=== PATIENT | male | born 1950 | race Caucasian/White ===

== ENCOUNTER → 2017-09-05 07:40 | Outpatient (CLI) | payer MEDICARE, BC, SELFPAY ==
--- NOTE | 2017-09-05 07:43 | CT_ITS ---
CT lung screening EXAM: CT LUNG LOW DOSE WO CONTRAST COMPARISON: None HISTORY: 66-year-old male with 80 pack-year smoking history asymptomatic ITS.REASON: PERSONAL HX TOBACCO USE ORDERING PHYSICIAN: Dinh Ritchie MD PATIENT AGE: 66 years TECHNIQUE: The exam was performed on a GE Light Speed [address] scanner using 2.90 mGy CTDI. A low dose helical CT CHEST was performed on a multi-detector scanner. All CT scans at the facility use one or more dose reduction, viz: automated exposure control; ma/kV adjustment per patient size (including targeted exams where dose is matched to indication; i.e. head); or iterative reconstruction technique. The LDCT was performed in a facility that meets the criteria for the screening program. Data regarding this exam was submitted to ACR which is an approved registry. The order for this exam indicates that it came as a result of a lung cancer screening counseling shard decision-making visit that included all the elements required of such a visit including smoking cessation. The radiologist interpreting this exam meets the CMS criteria for the LDCT lung cancer screening program. The exam is reported using the Lung-RADS classification scale and reported to the ACR registry. NOTE: This study was performed for the specific purposes of lung cancer screening and is not an alternative to diagnostic chest CT. RADIATION DOSE: CTDI vol(CT dose Index-volume) = 2.90mG DLP (Dose Length Product) = 113.59 mGcm FINDINGS: There are centrilobular emphysematous changes with hyperinflation and bronchial thickening consistent with smoking-related lung disease. 8.5 x 5.6 mm noncalcified slightly irregular opacity right upper lobe posterior medially with extension to the pleural surface indeterminate. Possibly related to an area of subpleural scarring. There is a linear area of increased density in the right upper lobe laterally at 2.6 cm in length and 0.5 cm in thickness consistent with an area of scarring. Calcified granuloma right lower lobe posteriorly. Noncalcified 3 mm nodule superior segment left lower lobe. Coronary artery calcifications are present. 3.9 cm isodensity left kidney incompletely imaged which may represent a cyst and may be confirmed with ultrasound. IMPRESSION: 1. Lung RADS Category: 4A suspicious. Regarding right upper lobe nodule 2. Other findings: Coronary artery calcifications suggesting coronary artery disease. Centrilobular emphysema. Probable left renal cyst RECOMMENDATIONS: [address] of the chest without and with contrast
== END ==
PROVIDERS: Family Provider Family Medicine; Visit Provider Family Medicine
DX: Z87.891 Personal history of nicotine dependence (principal); Z12.2 Encounter for screening for malignant neoplasm of respiratory organs

== ENCOUNTER → 2017-12-10 12:18 | Outpatient (CLI) | payer MEDICARE, BC, SELFPAY ==
[2017-12-10 12:48] LABS: Blood Urea Nitrogen 21 mg/dL (7-18); Creatinine,Serum 0.71 mg/dL (0.70-1.30); Estimated Glomerular Filt Rate 111 ml/min (>60); GFR (African American) 135 ML/MIN (>60)
--- NOTE | 2017-12-10 12:56 | CT_ITS ---
CT chest wo/w con HISTORY: Follow-up lung nodule, follow-up abnormal chest CT, solitary pulmonary nodule ITS.REASON: LUNG NODULE ORDERING PHYSICIAN: Dinh Ritchie MD PATIENT AGE: 66 years COMPARISON: None Technique: Axial images obtained without contrast. Sagittal and coronal reformats are reviewed as well. All CT scans at the facility use one or more dose reduction, viz: automated exposure control, ma/kV adjustment per patient size (including targeted exams where dose is matched to indication, i.e. head), or iterative reconstruction technique. FINDINGS: No mediastinal or hilar adenopathy or mass. Normal heart size. No evidence of pericardial effusion. No central obstructing lesions there is mild diffuse bronchial thickening. Somewhat irregular right upper lobe pulmonary nodule once again noted medially measuring approximately 7 x 5 mm. This is not significantly changed. No appreciable enhancement. Scarring is once again noted in the right upper lobe laterally unchanged. There is a calcified granuloma in the right lower lobe. No new nodules are evident. There are centrilobular emphysematous changes with obstructive chronic bronchitis. 3 mm noncalcified nodule present in the superior segment of the left lower lobe unchanged. No effusions or infiltrates. No acute bony anomalies. Upper abdominal images show at least 2 isodensity is in the left hepatic lobe at 11 7-mm and one in the hepatic dome at 4 mm. These are nonspecific and could represent cyst. Left renal cyst once again noted. IMPRESSION: Stable right upper lobe nodule compared to 09/05/2017. Six-month follow-up recommended. This can be performed without contrast. Centrilobular emphysema with scarring and obstructive chronic bronchitis
== END ==
PROVIDERS: Family Provider Family Medicine; PCP Family Medicine; Visit Provider Family Medicine
DX: R91.1 Solitary pulmonary nodule (principal)
CPT/HCPCS: 36415; 71270; 82565; 84520; Q9967

== ENCOUNTER → 2018-10-22 08:23 | Outpatient (CLI) | payer MEDICARE, BC, SELFPAY ==
[2018-10-22 08:51] LABS: Blood Urea Nitrogen 27 mg/dL (7-18); Creatinine,Serum 0.95 mg/dL (0.70-1.30); Estimated Glomerular Filt Rate 79 ml/min (>60); GFR (African American) 96 ML/MIN (>60)
--- NOTE | 2018-10-22 09:00 | CT_ITS ---
CT chest wo/w con HISTORY: Follow-up pulmonary nodules ITS.REASON: SEVERE COPD, HX TOBACCO USE ORDERING PHYSICIAN: Yuliet Patel APRN PATIENT AGE: 67 years COMPARISON: 12/10/2017 Technique: Contrast Used:75ml Optiray 350 Axial images were obtained. Sagittal, and coronal reformatted images are also generated and reviewed. All CT scans at the facility use one or more dose reduction, viz: automated exposure control, ma/kV adjustment per patient size (including targeted exams where dose is matched to indication, i.e. head), or iterative reconstruction technique. FINDINGS: No mediastinal or hilar mass or adenopathy. No evidence of aortic aneurysm or central pulmonary embolus. Coronary artery calcifications are present. No evidence of pericardial effusion. There is COPD with centrilobular emphysema. There are scattered areas of scarring similar to the previous exam. Bronchial thickening is noted as before. There is a small parenchymal opacity in the right upper lobe posteriorly at 6 mm unchanged and may represent an area of scarring. No new nodules are evident. No effusions or infiltrates. No acute bony findings. There is mild gynecomastia. Multiple hypodensities are present in the liver suggesting cysts. There is atheromatous change of the abdominal aorta with mild dilatation of the infrarenal abdominal aorta measuring up to 3 cm incompletely imaged. IMPRESSION: 1. Overall stable CT appearance of the chest. 2. COPD with centrilobular emphysema and scattered areas of parenchymal scarring. Stable parenchymal opacities. No new nodules evident. 3. Coronary artery disease. 4. Infrarenal abdominal aortic aneurysm which is incompletely imaged measuring up to [address] for further evaluation
== END ==
PROVIDERS: Visit Provider Nurse Practitioner Family
DX: J44.9 Chronic obstructive pulmonary disease, unspecified (principal); Z87.891 Personal history of nicotine dependence
CPT/HCPCS: 36415; 71270; 82565; 84520

== ENCOUNTER → 2018-11-11 08:23 | Outpatient (CLI) | payer MEDICARE, BC, SELFPAY ==
[2018-11-11 08:41] LABS: Blood Urea Nitrogen 21 mg/dL (7-18); Creatinine,Serum 0.85 mg/dL (0.70-1.30); Estimated Glomerular Filt Rate 90 ml/min (>60); GFR (African American) 109 ML/MIN (>60)
--- NOTE | 2018-11-11 08:56 | CT_ITS ---
CT abdomen pelvis wo/w con CLINICAL INDICATION: Abdominal aortic aneurysm evaluation ITS.REASON: AAA ORDERING PHYSICIAN: Dinh Ritchie MD PATIENT AGE: 67 years COMPARISON: 10/22/2018 TECHNIQUE: Contrast Used:75ml Optiray 350 Oral Contrast: None Axial images obtained without and with contrast with sagittal and coronal reformats. All CT scans at the facility use one or more dose reduction, viz: automated exposure control, ma/kV adjustment per patient size (including targeted exams where dose is matched to indication, i.e. head), or iterative reconstruction technique. FINDINGS: Lower thorax: No acute finding There are several isodense hepatic lesions which may represent multiple small hepatic cysts the largest in the junction of the right and left hepatic lobe superiorly at approximately 9 mm. No calcified gallstones. Spleen is unremarkable. Adrenal glands and pancreas has an unremarkable appearance Nonobstructing 3 mm stone is present in the upper pole the right kidney. There is a large left renal cyst along the lower pole of left kidney measuring 10 x 6.4 cm. There is some minimal septation noted within the cyst with some minimal calcification. This is considered a Bosniak class II F cyst. Suggest 3 month follow-up. No right. No adenopathy. There is mild enlargement of the prostate at 4.8 cm. Scattered diverticula are present within the descending and sigmoid colon. No evidence of diverticulitis or appendicitis. No intestinal obstruction or free air. No acute bony anomalies. There is an infrarenal fusiform abdominal aortic aneurysm. This begins 4 cm below the level the renal arteries measuring up to 4.5 cm AP and transverse with a moderate amount of intramural thrombus. The aneurysm ends at the aortic bifurcation with calcific plaque within the iliac arteries. IMPRESSION: 1. 4.5 cm infrarenal abdominal aortic aneurysm as described above with a moderate amount of the intramural thrombus 2. Complex left renal cyst at 10 x 6.4 cm with some internal septa representing a Bosniak class II F cyst. Recommend 3 month follow-up 3. Right nephrolithiasis. 4. Probable hepatic cysts
== END ==
PROVIDERS: PCP Family Medicine; Visit Provider Family Medicine
DX: I71.4 Abdominal aortic aneurysm, without rupture (principal)
CPT/HCPCS: 36415; 74178; 82565; 84520; Q9967

== ENCOUNTER → 2019-03-09 08:05 | Outpatient (CLI) | payer MEDICARE, BC, SELFPAY ==
--- NOTE | 2019-03-09 08:22 | CT_ITS ---
PROCEDURE: CT ABDOMEN PELVIS WO/W CON CLINICAL INDICATION: renal mass Left renal mass COMPARISON: CHESTWW CT chest wo/w con from 12/10/[address] abdomen wo/w con from 11/11/2018 TECHNIQUE: IV Contrast: 75ML OPTIRAY 350 Oral Contrast NONE Axial images obtained with sagittal and coronal reformats. All CT scans at the facility use one or more dose reduction, viz: automated exposure control, ma/kV adjustment per patient size (including targeted exams where dose is matched to indication, i.e. head), or iterative reconstruction technique. FINDINGS: LOWER THORAX: A 4 mm noncalcified nodules present in the right lung base posteriorly. ABDOMEN & PELVIS: The there are several small hypodense lesions of the liver consistent with cysts. There is an 11 by 6.8 by 6.2 cm cyst projecting off the lower pole of the left kidney. This does contain some thin peripheral calcification. There may be some minimal enhancement along the lower aspect of the cyst.. No hydronephrosis. No solid renal masses. There is an infrarenal abdominal aortic aneurysm with moderate amount of intramural thrombus. The aneurysm measures up to 4.7 cm transverse and 4.5 cm AP. The aneurysm begins approximately 3 cm below the level of the renal arteries extending to the aortic bifurcation. The proximal common iliacs are unremarkable. There is a moderate amount intramural thrombus. No evidence of retroperitoneal hemorrhage. The Prostate gland is mildly enlarged at 4.8 cm. There is degenerative disc disease at L5-S1. IMPRESSION: 1. 11 x 6.8 x 6.2 cm left renal cyst with some thin septa with minimal calcification and questionable enhancement inferiorly consistent with a Bosniak class 2F cyst. Suggest 6 month follow-up 2. 4.7 x 4.5 cm infrarenal abdominal aortic aneurysm containing a moderate amount of intramural thrombus extending to the aortic bifurcation. No evidence of retroperitoneal hemorrhage Dictated by: Justin Jameson MD 03/10/2019 13:06 Electronically signed by Justin Jameson MD in [place] 03/10/2019 13:06
[2019-03-09 08:28] LABS: Blood Urea Nitrogen 23 mg/dL (7-18); Creatinine,Serum 0.94 mg/dL (0.70-1.30); Estimated Glomerular Filt Rate 80 ml/min (>60); GFR (African American) 97 ML/MIN (>60)
== END ==
PROVIDERS: PCP Family Medicine; Visit Provider Urology
DX: N28.89 Other specified disorders of kidney and ureter (principal); N28.1 Cyst of kidney, acquired
CPT/HCPCS: 36415; 74178; 82565; 84520; Q9967

== ENCOUNTER → 2019-09-08 08:02 | Outpatient (CLI) | payer MEDICARE, BC, SELFPAY ==
[2019-09-08 08:28] LABS: Blood Urea Nitrogen 26 mg/dl (9-20); Estimated Glomerular Filt Rate 112 ml/min (>60); GFR (African American) 136 ML/MIN (>60)
--- NOTE | 2019-09-08 08:39 | CT_ITS ---
PROCEDURE: CT ABDOMEN PELVIS WO/W CON CLINICAL INDICATION: left renal mass Follow-up left renal mass COMPARISON: ABDWW CT abdomen wo/w con from 11/11/2018 CT ABDOMEN PELVIS WO/W CON from 03/09/2019 TECHNIQUE: IV Contrast: 75ML OPTIRAY 350 Oral Contrast none Axial images obtained with sagittal and coronal reformats. All CT scans at the facility use one or more dose reduction, viz: automated exposure control, ma/kV adjustment per patient size (including targeted exams where dose is matched to indication, i.e. head), or iterative reconstruction technique. FINDINGS: LOWER THORAX: COPD. ABDOMEN & PELVIS: There are multiple hypodense hepatic lesions which are not significantly changed and may be due to small cyst or hemangiomas. The spleen, adrenal glands, and pancreas have an unremarkable appearance. There is a nonobstructing 3 mm stone in the upper pole of the right kidney and 2 mm stone in the upper pole of the left kidney. There is a complex left renal cyst projecting off the lower pole of the left kidney measuring 11 cm cephalad caudad, 6.6 cm AP, and 6.1 cm transverse for. The cyst is not significantly changed in size. There are some thin partially calcified septa along the periphery of this lesion. They do not appear to significantly enhance. The. This is not significantly changed from 11/11/2018 and 03/09/2019. The There is a mild amount of retained colonic feces. No intestinal obstruction or free air. No evidence of appendicitis. There is colonic diverticulosis but no evidence of diverticulitis. Prostate is enlarged at 5 cm There is an infrarenal abdominal aortic aneurysm which measures 4.9 the for by 5 cm with a moderate amount of intramural thrombus. The aneurysm ends at the aortic bifurcation. There is no evidence of acute retroperitoneal hemorrhage. Degenerative changes are present in the lumbar spine. IMPRESSION: 1. No change in the complex left renal cyst stable for 10 months consistent with Bosniak class 2. Consider yearly follow-up. 2. Bilateral nephrolithiasis. 3. Infrarenal abdominal aortic aneurysm which is slightly increased in size with maximum AP diameter of 5 cm previously 4.5 cm on 03/09/2019 4. Colonic diverticulosis. No evidence of diverticulitis Dictated by: Justin Jameson MD 09/09/2019 08:20 Electronically signed by Justin Jameson MD in [place] 09/09/2019 08:20
--- NOTE | 2019-09-08 08:41 | CT_ITS ---
PROCEDURE: CT LUNG SCREENING CLINICAL INDICATION: H/O NICOTINE DEPENDENCE Fifty pack-year smoking history, asymptomatic for lung cancer COMPARISON: CHESTWW CT chest wo/w con from 10/22/2018 TECHNIQUE: The exam was performed on a GE Light Speed [address] scanner using 2.90 mGy CTDI. A low dose helical CT CHEST was performed on a multi-detector scanner. All CT scans at the facility use one or more dose reduction, viz: automated exposure control, ma/kV adjustment per patient size (including targeted exams where dose is matched to indication, i.e. head), or iterative reconstruction technique. The LDCT was performed in a facility that meets the criteria for the screening program. Data regarding this exam was submitted to ACR which is an approved registry. The order for this exam indicates that it came as a result of a lung cancer screening counseling shard decision-making visit that included all the elements required of such a visit including smoking cessation. The radiologist interpreting this exam meets the CMS criteria for the LDCT lung cancer screening program. The exam is reported using the Lung-RADS classification scale and reported to the ACR registry. NOTE: This study was performed for the specific purposes of lung cancer screening and is not an alternative to diagnostic chest CT. RADIATION DOSE: CTDI vol(CT dose Index-volume) = 2.90mG DLP (Dose Length Product) = 112.29 mGcm Lung Rads Category: FINDINGS: Centrilobular emphysema with changes of COPD and scattered areas of scarring. No new nodular densities. Calcified granuloma is present in the right lower lobe no suspicious nodules apparent. OTHER FINDINGS: Extensive coronary artery calcification. There is an implantable cardiac device between the right left atrium. Please see abdomen CT performed on the same day for abdominal findings IMPRESSION: Lung rads category 2 benign findings Recommend screening LD CT in 12 months Dictated by: Justin Jameson MD 09/26/2019 09:39 Electronically signed by Justin Jameson MD in [place] 09/26/2019 09:39
== END ==
PROVIDERS: PCP Family Medicine; Visit Provider Urology
DX: N28.89 Other specified disorders of kidney and ureter (principal); Z87.891 Personal history of nicotine dependence; Z12.2 Encounter for screening for malignant neoplasm of respiratory organs
CPT/HCPCS: 36415; 74178; 82565; 84520; Q9967

== ENCOUNTER → 2020-03-06 11:16 | Outpatient (CLI) | payer MEDICARE, BC, SELFPAY ==
[2020-03-06 12:20] LABS: Blood Urea Nitrogen 22 mg/dl (9-20); Estimated Glomerular Filt Rate 134 ml/min (>60); GFR (African American) 162 ML/MIN (>60)
== END ==
PROVIDERS: Visit Provider Urology
DX: Z01.818 Encounter for other preprocedural examination (principal); N28.1 Cyst of kidney, acquired
CPT/HCPCS: 36415; 82565; 84520

== ENCOUNTER → 2020-03-07 08:52 | Outpatient (CLI) | payer MEDICARE, BC, SELFPAY ==
--- NOTE | 2020-03-07 08:57 | CT_ITS ---
PROCEDURE: CT ABDOMEN PELVIS WO/W CON CLINICAL INDICATION: COMPLEX RENAL CYST Follow-up left renal cyst COMPARISON: CT CT ABDOMEN PELVIS WO/W CON from 09/08/2019 TECHNIQUE: IV Contrast: 75ML Isovue 370 Oral Contrast None Axial images obtained with sagittal and coronal reformats. All CT scans at the facility use one or more dose reduction, viz: automated exposure control, ma/kV adjustment per patient size (including targeted exams where dose is matched to indication, i.e. head), or iterative reconstruction technique. FINDINGS: LOWER THORAX: No acute finding ABDOMEN & PELVIS: There are scattered hypodense lesions of the liver which may represent hepatic cysts less than 1 cm and not significantly changed. There is a complex left renal cyst measuring 11 cm cephalad caudad 6.4 cm transverse and 6.5 cm AP. There are some thin calcific septa within the anterior and inferior aspect of the cyst which are not significantly changed. These do not demonstrate contrast enhancement. There are nonobstructing punctate calculi in the upper pole of the right kidney. No hydronephrosis. The spleen, adrenal glands, and pancreas have an unremarkable appearance. Aortoiliac stent graft has been placed in the interval. There is dilatation of the [facility] aorta at 4.6 by 4.3 cm. No evidence of endo graft leak. No intestinal obstruction or free air. Increased soft tissue density is present in the left inguinal area heterogeneous in nature consistent with hematoma/seroma from the previous stent graft placement. Surgical clips are also present in this area. No acute bony findings. IMPRESSION: 1. Overall no change in the complex left renal cyst consistent with a Bosniak class 2 benign. 2. Status post aortoiliac stent graft placement with hematoma/seroma in the left inguinal area Dictated by: Justin Jameson MD 03/08/2020 12:06 Justin Jameson MD in [place] 03/08/2020 12:06
== END ==
PROVIDERS: PCP Family Medicine; Visit Provider Urology
DX: N28.1 Cyst of kidney, acquired (principal)
CPT/HCPCS: 74178; Q9967

== ENCOUNTER → 2020-09-08 07:56 | Outpatient (CLI) | payer MEDICARE, BC, SELFPAY ==
--- NOTE | 2020-09-08 08:00 | CT_ITS ---
PROCEDURE: CT LUNG SCREENING CLINICAL INDICATION: H/O NICOTINE DEPENDENCE Former smoker Quit smoking 1 year ago 45 pack year smoking history Copd Prior on pacs COMPARISON: CT LUNGSCREEN CT lung screening from 09/05/[address] LUNG SCREENING from 09/08/2019 TECHNIQUE: The exam was performed on a GE Light Speed [address] scanner using 2.90 mGy CTDI. A low dose helical CT CHEST was performed on a multi-detector scanner. All CT scans at the facility use one or more dose reduction, viz: automated exposure control, ma/kV adjustment per patient size (including targeted exams where dose is matched to indication, i.e. head), or iterative reconstruction technique. The LDCT was performed in a facility that meets the criteria for the screening program. Data regarding this exam was submitted to ACR which is an approved registry. The order for this exam indicates that it came as a result of a lung cancer screening counseling shard decision-making visit that included all the elements required of such a visit including smoking cessation. The radiologist interpreting this exam meets the CMS criteria for the LDCT lung cancer screening program. The exam is reported using the Lung-RADS classification scale and reported to the ACR registry. NOTE: This study was performed for the specific purposes of lung cancer screening and is not an alternative to diagnostic chest CT. RADIATION DOSE: CTDI vol(CT dose Index-volume) = 2.90mG DLP (Dose Length Product) = 117.77 mGcm FINDINGS: COPD with centrilobular and paraseptal emphysema and scattered areas of scarring. Stable subpleural irregular opacity left upper lobe posteriorly at 6 mm. Old granulomatous disease OTHER FINDINGS: Coronary artery calcifications. Implantable cardiac device between the right left atrium. 4 hypodensities are present in the liver superiorly not significantly changed. Large left renal cyst with minimal peripheral wall calcification incompletely imaged measuring at least 6.4 cm. Prior aortoiliac stent graft placement. Loop recorder device present IMPRESSION: Lung-RADS Category 2 Benign Appearance or Behavior Follow-up: Continue annual screening with LDCT in 12 months Dictated by: Justin Jameson MD 09/10/2020 08:01 Justin Jameson MD in [place] 09/10/2020 08:01
== END ==
PROVIDERS: PCP Family Medicine; Visit Provider Family Medicine
DX: Z87.891 Personal history of nicotine dependence (principal); Z12.2 Encounter for screening for malignant neoplasm of respiratory organs
CPT/HCPCS: 71271

== ENCOUNTER → 2021-02-21 13:02 | Outpatient (CLI) | payer MEDICARE, BC, SELFPAY ==
[2021-02-21 13:54] LABS: Blood Urea Nitrogen 16 mg/dl (9-20); Estimated Glomerular Filt Rate 134 ml/min (>60); GFR (African American) 162 ML/MIN (>60)
== END ==
PROVIDERS: Visit Provider Urology
DX: N28.1 Cyst of kidney, acquired (principal)
CPT/HCPCS: 36415; 82565; 84520

== ENCOUNTER → 2021-02-23 08:31 | Outpatient (CLI) | payer MEDICARE, BC, SELFPAY ==
--- NOTE | 2021-02-23 08:35 | CT_ITS ---
PROCEDURE: CT ABDOMEN WO/W CON CLINICAL HISTORY: RENAL MASS COMPARISON: CT CT ABDOMEN PELVIS WO/W CON from 03/07/2020 TECHNIQUE: 150 mL Isovue 370 Axial images obtained with sagittal and coronal reformats. All CT scans at the facility use one or more dose reduction, viz: automated exposure control, ma/kV adjustment per patient size (including targeted exams where dose is matched to indication, i.e. head), or iterative reconstruction technique. FINDINGS: COPD changes in the lungs. There are numerous small hypodensities of the liver suggesting hepatic cysts. The large complex cyst of the left kidney is once again noted with some peripheral calcification and no measurable enhancement. This measures 11 x 6.5 x 6.8 cm. 2 mm stone upper pole right kidney unchanged. Status post aortoiliac stent graft with no evidence of endo graft leak. No retroperitoneal hemorrhage. The spleen, pancreas, and adrenal glands have an unremarkable appearance. There are fluid-filled loops of small and large bowel nonspecific in nondistended. IMPRESSION: No change large left renal cyst/Bosniak class 2 benign-appearing Dictated by: Justin Jameson MD 02/24/2021 09:50 Justin Jameson MD in [place] 02/24/2021 09:50
== END ==
PROVIDERS: PCP Family Medicine; Visit Provider Urology
DX: N28.89 Other specified disorders of kidney and ureter (principal)
CPT/HCPCS: 74170; Q9967

== ENCOUNTER → 2021-08-27 15:23 | Outpatient (CLI) | payer MEDICARE, BC, SELFPAY ==
--- NOTE | 2021-08-27 16:07 | CT_ITS ---
FINAL REPORT TECHNIQUE: Axial images were obtained from the lung apex to the mid abdomen by computed tomography. Low-dose protocol was utilized. CLINICAL HISTORY: HX SMOKER COMPARISON: 09/08/2020 FINDINGS: CHEST CT LOW DOSE CTDI vol (mGy): 2.90 DLP (mGy-cm): 111.25 There is no axillary adenopathy. There is no hilar or mediastinal adenopathy. The heart is normal in size. There is no pericardial or pleural effusion. The ascending aorta measures 3.7 cm. There is a loop recorder device in the medial left thorax. There is a spiculated mass in the medial right upper lobe measuring 6 mm well seen on image 14 of series 6. This finding is entirely stable. There is linear density in the periphery of the right upper lobe which is stable well seen on image number 18 of series 3. There is a calcified granuloma in the right lower lobe. Limited images of the upper abdomen demonstrate a partially visualized left renal cyst measuring 4.8 cm. An abdominal aortic endo graft is present. Limited images of the upper abdomen are unremarkable. IMPRESSION: The is a stable medial right upper lobe mass measures 6 mm. Stable linear density in the periphery of the right upper lobe. Lung RADS category 2. Recommend 12 month follow-up low-dose chest CT. Reviewed, Interpreted and Dictated by David Brarios MD Transcribed by Sally Nguyen Authenticated by David Barrios MD on 08/28/2021 08:28:14 AM [facility]
== END ==
PROVIDERS: PCP Family Medicine; Visit Provider Nurse Practitioner Family
DX: Z87.891 Personal history of nicotine dependence (principal); Z12.2 Encounter for screening for malignant neoplasm of respiratory organs; J44.9 Chronic obstructive pulmonary disease, unspecified
CPT/HCPCS: 71271

== ENCOUNTER → 2022-03-07 10:28 | Outpatient (CLI) | payer MEDICARE, BC, SELFPAY ==
[2022-03-07 11:34] LABS: Blood Urea Nitrogen 21 mg/dl (9-20); Estimated Glomerular Filt Rate 164 ml/min (>60); GFR (African American) 199 ML/MIN (>60)
== END ==
PROVIDERS: PCP Family Medicine; Visit Provider Urology
DX: N28.89 Other specified disorders of kidney and ureter (principal)
CPT/HCPCS: 36415; 82565; 84520

== ENCOUNTER → 2022-03-12 08:25 | Outpatient (CLI) | payer MEDICARE, BC, SELFPAY ==
--- NOTE | 2022-03-12 08:30 | CT_ITS ---
FINAL REPORT TECHNIQUE: Pre- and postcontrast images of the abdomen were performed by computed tomography. This study was performed with techniques to keep radiation doses as low as reasonably achievable (ALARA). Individualized dose reduction techniques using automated exposure control or adjustment of mA and/or kV according to the patient's size were employed. CLINICAL HISTORY: DISORDER OF KIDNEY AND URETER renal mass COMPARISON: 02/23/2021 FINDINGS: The lung bases are clear. There are multiple benign-appearing cysts in left lobe of the liver. There are calcified granulomas in the spleen. Abdominal aortic endograft is present. There is no evidence of endoleak. The adrenals are normal. The pancreas is unremarkable. There is a well-circumscribed complex cyst in the left kidney measuring 7.2 x 6.0 cm in AP and transverse dimension. There are mild peripheral calcifications and septations. This complex cyst appears stable in appearance, likely benign. There is a tiny stone in the upper pole of the right kidney. IMPRESSION: Stable complex stable complex cyst in the left kidney, likely benign. No evidence of endoleak. Tiny stone in the right kidney. Reviewed, Interpreted and Dictated by David Barrios MD Transcribed by Sally Nguyen Authenticated and [facility]
== END ==
PROVIDERS: PCP Family Medicine; Visit Provider Urology
DX: N28.89 Other specified disorders of kidney and ureter (principal)
CPT/HCPCS: 74170; Q9967

== ENCOUNTER → 2022-09-11 15:17 | Outpatient (CLI) | payer MEDICARE, BC, SELFPAY ==
--- NOTE | 2022-09-11 15:20 | CT_ITS ---
FINAL REPORT CLINICAL HISTORY: H/O TOBACCO USE previous smoker 1 1/2 ppd x 35 years, quit 10 years ago FINDINGS: CT CHEST LOW DOSE SCREENING HISTORY: Screening exam for lung cancer. Former smoker, 51 pack year smoking history DOSE: CTDIvol: 2.90 mGy, DLP: 116.20 mGy*cm COMPARISON: 08-27-21. TECHNIQUE: Axial CT without IV contrast administration using low dose protocol FINDINGS: No acute lung disease is present . Spiculated nodule measuring 6 mm in the medial aspect of the right upper lobe is stable. Peripheral scarring in the right upper lobe is also unchanged. 2 mm nodule in the lateral left midlung on image 38 is stable. There is moderate underlying emphysematous disease. No pleural or pericardial effusion is seen . No adenopathy or mass lesion is present . IMPRESSION: 1. Stable pulmonary lesions most likely benign LUNG RADS CATEGORY 2 RECOMMENDATION: 12 month LDCT follow up Authenticated and ERN
== END ==
PROVIDERS: PCP Family Medicine; Visit Provider Nurse Practitioner Family
DX: Z87.891 Personal history of nicotine dependence (principal); Z12.2 Encounter for screening for malignant neoplasm of respiratory organs
CPT/HCPCS: 71271

== ENCOUNTER → 2023-03-12 12:34 | Outpatient (CLI) | payer MEDICARE, BC, SELFPAY ==
--- NOTE | 2023-03-12 12:37 | US_ITS ---
FINAL REPORT TECHNIQUE: Ultrasound images of the kidneys and bladder were obtained. CLINICAL HISTORY: RENAL CYST COMPARISON: A CT is available for comparison from March 12, 2022. FINDINGS: The right kidney measures 9.6 cm in length. It is normal in echogenicity. There is no hydronephrosis. The left kidney measures 11.4 cm in length. It is normal in echogenicity. There is no hydronephrosis. There is a large cystic mass projecting from the inferior pole of the left kidney, that measures 9.6 cm in largest diameter, that may have peripheral calcification. The septations within the cyst noted on the CT examination of March 2022 are not well demonstrated on this ultrasound examination. IMPRESSION: Large cyst, lower pole left kidney, known to be complex from CT examination, is not completely demonstrated well on this examination. Follow-up CT might be helpful for direct comparison with prior exam. Reviewed, Interpreted and Dictated by Tori Nixon MD Transcribed by Fabiola Kat Authenticated and [facility]
== END ==
PROVIDERS: PCP Family Medicine; Visit Provider Urology
DX: N28.1 Cyst of kidney, acquired (principal)
CPT/HCPCS: 76770

== ENCOUNTER 2023-10-21 13:14 | Outpatient (CLI) | payer MEDICARE, BC, SELFPAY ==
--- NOTE | 2023-10-21 13:19 | CT_ITS ---
FINAL REPORT TECHNIQUE: Axial images were obtained from the lung apex to the mid abdomen by computed tomography. This study was performed with techniques to keep radiation doses as low as reasonably achievable (ALARA). Individualized dose reduction techniques using automated exposure control or adjustment of mA and/or kV according to the patient's size were employed. CLINICAL HISTORY: FORMER SMOKER, QUIT 8 YEARS AGO. SMOKED 1.5 PPD X40 YEARS COMPARISON: 09/11/2022 FINDINGS: CHEST CT LOW DOSE CTDI vol (mGy): 2.90 DLP (mGy-cm): 107.33 There is no axillary adenopathy. There is no hilar or mediastinal adenopathy. The heart is normal in size. There is no pericardial or pleural effusion. There is a persistent spiculated nodule in the medial right upper lobe measuring 5 mm well seen on image 16. There is stable scarring in the lateral right upper lobe. There is a stable 2 mm nodule in the lateral left mid lung well seen on image 38. Nodule in the medial left lower lobe measures 2 mm is unchanged. This is best seen on image 38. Note is made of emphysema. Limited images of the upper abdomen are unremarkable. IMPRESSION: Pulmonary nodules as detailed above. Lung RADS category 2. Recommend 12 month follow-up low-dose chest CT. Reviewed, Interpreted and Dictated by Pancho Camp MD Transcribed by Sally Nguyen Authenticated and [facility]
== END 2023-10-21 23:59 | disposition home or self-care (01) ==
LOC: RAD 13:15
PROVIDERS: PCP Nurse Practitioner; Visit Provider Nurse Practitioner
DX: Z87.891 Personal history of nicotine dependence (principal); Z12.2 Encounter for screening for malignant neoplasm of respiratory organs
CPT/HCPCS: 71271

== ENCOUNTER 2024-04-06 10:46 | Outpatient (CLI) | payer MEDICARE, BC, SELFPAY ==
--- NOTE | 2024-04-06 10:49 | US_ITS ---
FINAL REPORT TECHNIQUE: Ultrasound images of the kidneys and bladder were obtained. CLINICAL HISTORY: RENAL CYST COMPARISON: 03/12/2023 FINDINGS: The right kidney measures 10.9 cm in length. It is normal in echogenicity. There is no hydronephrosis. The left kidney measures 13.9 cm in length. It is normal in echogenicity. There is no hydronephrosis. There is a 10.7 cm lobular cystic mass lower pole of the left kidney, which measured 9.8 cm on the prior exam. This is favored to be an enlarged cyst. The urinary bladder is unremarkable. IMPRESSION: Enlarged left renal cyst. Reviewed, Interpreted and Dictated by Navneet Gee III, MD Transcribed by Joanna Rachel Authenticated and [facility]
== END 2024-04-06 23:59 | disposition home or self-care (01) ==
LOC: RAD 10:47
PROVIDERS: PCP Nurse Practitioner; Visit Provider Urology
DX: N28.1 Cyst of kidney, acquired (principal)
CPT/HCPCS: 76770

== ENCOUNTER 2024-11-11 10:21 | Outpatient (CLI) | payer MEDICARE, BC, SELFPAY ==
--- OUTSIDE RECORDS SUMMARY | 2024-09-15 08:10 | XMS_ITS | Encounter Summary ---
Author Organization Healthcare Address [address] [place] [address] Care Team Providers Care Health Care Manager Name Role Phone Dinh Ritchie MD Primary Care Provider [phone] Encounter Details Date Type Department Care Team (Latest Contact Info) Description 09/15/2024 8:10 AM EDT - 09/15/2024 11:59 PM EDT Hospital Encounter Cardiac Imaging [address] [place] [address] Encounter for loop recorder check Discharge Disposition: Home or Self Care Social History Tobacco Use Types Packs/Day Years Used Date Smoking Tobacco: Former Smokeless Tobacco: Never Alcohol Use Standard Drinks/Week Comments No 0 (1 standard drink = 0.6 oz pur e alcohol) PHQ-2 Answer Date Recorded Patient Health Questionnaire-2 Score 0 08/09/2024 PHQ-9 Answer Date Recorded Patient Health Questionnaire-9 Score 0 08/09/2024 Sex and Gender Information Value Date Recorded Sex Assigned at Not on file Legal Sex Male 7:30 PM EDT Gender Identity Not on file Sexual Orientation Not on file documented as of this encounter Medications at Time of Discharge albuterol 108 (90 Base) MCG/ACT inhaler Ventolin HFA 90 mcg/actuation aerosol inhaler 02/22/2019 apixaban (Eliquis) 5 MG tablet Take 1 tablet by mouth in the morning and 1 tablet before bedtime. 180 tablet 3 08/09/2024 atorvastatin (Lipitor) 80 MG tablet 1 (one) time each day. 06/15/2020 Glycopyrrolate-Fo rmoterol (Bevespi Aerosphere) 9-4.8 MCG/ACT aerosol 2 puffs in the morning and 2 puffs before bedtime. 08/17/2018 documented as of this encounter Plan of Treatment Upcoming Encounters Date Type Department Care Team (Late st Contact Info) Description 08/11/2025 1:20 PM EDT Office Visit [facility] [place] [facility] [address] [place] [address] Allie Serna MD [address] [place] [address] documented as of this encounter Procedures Procedure Name Priority Date/Time Associated Diagnosis Comments CARDIAC DEVICE CHECK - REMOTE - LOOP RECORDER (ILR) Routine 09/15/2024 8:14 AM EDT Encounter for loop recorder check documented in this encounter Results * CARDIAC DEVICE CHECK - REMOTE - LOOP RECORDER (ILR) (09/15/2024 8:14 AM EDT) Anatomical Region Laterality Modality Other Narrative 09/15/2024 9:49 AM EDT Implantable loop recorder (ILR) interrogation. Battery remaining in service adequate. EGM's reviewed against indication for implant and diagnosis, found to be unremarkable. No new events since last interrogation and reset. Device Check DEVICE INFO Device type: Implantable recorder Device company: [employer]. Device model: [id number] Device serial number: [id number] Device implant date: 11/12/2022 DEVICE CHECK Battery remaining: Good Presenting rhythm: sinus rhythm NOTES PVCs 3.1% Key Pelletier James FORBES CV IMPLANTABLE CARDIAC DEV ICE PROCEDURES Final Result documented in this encounter Visit Diagnoses Diagnosis Encounter for loop recorder check documented in this encounter Additional Health Concerns Assessment Noted Time PHQ-9 Depression Total Score: 0 08/10/19 25 12:52 PM EDT A fall risk assessment has been complete d for the patient 08/09/2024 12:52 PM EDT A Body Mass Index follow-up plan has been documented for the patient 08/09/2024 1:35 PM EDT documented as of this encounter Care Teams Health Care Manager Relationship Specialty Start Date End Date Dinh Ritchie MD [address] [place] [address] PCP - General 09/15/20 documented as of this encounter
--- OUTSIDE RECORDS SUMMARY | 2024-10-12 08:50 | XMS_ITS | Encounter Summary ---
Author Organization Healthcare Address [address] [place] [address] Care Team Providers Care Distribution Center Assistant Name Role Phone Dinh Ritchie MD Primary Care Provider [phone] Encounter Details Date Type Department Care Team (Latest Contact Info) Description 10/12/2024 8:50 AM EDT - 10/12/2024 11:59 PM EDT Hospital Encounter Cardiac Imaging [address] [place] [address] History of loop recorder Discharge Disposition: Home or Self Care Social [...] Description 08/11/2025 1:20 PM EDT Office Visit [facility] [place] [facility] [address] [place] [address] Allie Serna MD [address] [place] [address] documented as of this encounter Procedures Procedure Name Priority Date/Time Associated Diagnosis Comments CARDIAC DEVICE CHECK - REMOTE - LOOP RECORDER (ILR) Routine 10/12/2024 12:40 PM EDT History of loop recorder documented in this encounter Results * CARDIAC DEVICE CHECK - REMOTE - LOOP RECORDER (ILR) (10/12/2024 12:40 PM EDT) Anatomical Region Laterality Modality Other Narrative 10/12/2024 1:50 PM EDT [facility] Remote CIED Report Name: Hayes Mays Date: 10/12/2024 : 1950 Age: 73 y.o. Reporting period: Reporting period is the last 31 days, with at least 10 days of remote monitoring. Interim reports, if any, reviewed and addressed previously; see remote alert entries for more details. Device: [employer] LNQ22 implantable nurse monitoring (ICM) Battery: Status: Good Evaluation: Presenting rhythm: sinus with 1:1 intrinsic conduction to the ventricle. Trends Rate Histograms : demonstrate good rate distribution. Demonstrates appropriate sensing: Yes Arrhythmias: No new arrhythmia of significance since last CIED evaluation. Summary CIED functioning as expected, with given programming and data. us Key Ramirez APRN CV IMPLANTABLE CARDIAC DEV ICE PROCEDURES Final Result documented in this encounter Visit Diagnoses Diagnosis History of loop recorder documented in this encounter Additional Health Concerns Assessment Noted Time PHQ-9 Depression Total Score: 0 08/10/19 25 12:52 PM EDT A fall risk assessment has been complete d for the patient 08/09/2024 12:52 PM EDT A Body Mass Index follow-up plan has been documented for the patient 08/09/2024 1:35 PM EDT documented as of this encounter Care Teams Distribution Center Assistant Relationship Specialty Start Date End Date Dinh Ritchie MD [address] [place] [address] PCP - General 09/15/20 documented as of this encounter
--- NOTE | 2024-11-11 10:23 | CT_ITS ---
FINAL REPORT TECHNIQUE: Thin section axial images were obtained from the lung apices to the upper abdomen by computed tomography. Reformatted images were obtained and reviewed. This study was performed with techniques to keep radiation doses al low as reasonably achievable (ALARA). Individualized dose reduction techniques using automated exposure control or adjustment of mA and/or kV according to the patient's size were employed. CLINICAL HISTORY: lung screening, former smoker (quit 8 yrs ago), smoked 2 packs per day for 35 yrs, copd, emphysema COMPARISON: 10/21/2023 FINDINGS: CHEST CT LOW DOSE 73-year-old male, former smoker 48 years, 65-vcac-sbcy history. CTDI vol (mGy): 2.90 DLP (mGy-cm): 116.98 There is no axillary adenopathy. There is no mediastinal or hilar mass or adenopathy. The heart is normal in size. There is no pericardial or pleural effusion. Linear scar is present in the peripheral right upper lobe. Lung window images demonstrate a 5 mm medial right upper lobe spiculated nodule, best seen on image #20 of series 3, stable since the prior exam. There are two 2 mm left lower lobe nodules best seen on image #41 of series 3, also stable. Limited images of the upper abdomen demonstrate nonobstructing stones in the right kidney. There is a partially calcified 6.3 cm cyst in the left kidney. An abdominal aorta endograft is again visualized. IMPRESSION: Lung-RADS category 2S, the S designation for the partially calcified left renal cyst and nonobstructing stones in the right kidney. Recommend 12 month follow up low dose chest CT. Reviewed, Interpreted and Dictated by David Barrios MD Transcribed by Fabiola Kat Authenticated and [facility]
--- OUTSIDE RECORDS SUMMARY | 2024-11-11 10:27 | XMS_ITS | Encounter Summary ---
Author Organization [employer] ([place], [place], [place], [place]) Address [address] [place] [address] Care Team Providers Care Global Upstream Marketing Manager Name Role Phone Collette Rendon APRN Primary Care Provider [phone] Encounter Details Date Type Department Care Team (Late st Contact Info) Description 02/25/[address] [facility] [place] [address] [place] [address] ProviderDulce Maria MD [address] [place], [place] [id number] Social History Tobacco Use Types Packs/Day Years Used Date Smoking Tobacco: Never Assessed Sex and Gender Information Value Date Recorded Sex Assigned at Male 10/30/2021 8:44 PM CDT Legal Sex Male 8:44 PM CDT Gender Identity Male 10/30/2021 8:44 PM CDT Sexual Orientation Not on file documented as of this encounter Miscellaneous Notes * Cerner Conversion Note - Historical ProviderMD - 02/25/2020 10:38 AM CDT Initial Discharge Planning Entered On: 02/25/2020 10:41 EDT Performed On: 02/25/2020 10:38 EDT by LORENA PICKERING Rn-Property Condition Assessor Initial Assessment I Previously Documented Living Environment : No qualifying data available. Living Situation : Home Patient Lives With : Spouse Is the Patient a Caregiver at Home? : No Emergency Contact #1 : Dalton Reeves Emergency Contact #1 Emergency Contact #1 Relationship : Emergency Contact #2 : na Emergency Contact #2 Phone Number : na Emergency Contact #2 Relationship : na Enter Doctors Name : Dinh Ritchie Does Patient have PCP Listed? : Yes Medical Durable Power of Margarine Maker Name : Dalton Dash (no copy on file) Legal Guardian : No Is Guardianship Needed : No LORENA PICKERING Rn-Property Condition Assessor - 02/25/2020 10:38 EDT Initial Assessment II Sensory and Motor Deficits : None Current Home Treatments and Equipment : None LORENA PICKERING Rn-Property Condition Assessor - 02/25/2020 10:38 EDT Discharge Needs I Anticipated Discharge Date : 02/25/2020 EDT Anticipated Discharge To, : Home with family care Current Home Treatment/Equipment : Current Home Treatment/Equipment No qualifying data available. Post Acute/Home Treatments : None Documentation Status Complete : Yes LORENA PICKERING Rn-Property Condition Assessor - 02/25/2020 10:38 EDT Discharge Needs II Professional Skilled Services : Professional Skilled Services No qualifying data available. 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 Pt lives with spouse; PLOF independent, no hx of home health or short-term rehab. LORENA PICKERING Rn-Property Condition Assessor - 02/25/2020 10:38 EDT documented in this encounter Plan of Treatment Upcoming Encounters Date Type Department Care Team (Late st Contact Info) Description 11/25/2024 1:15 PM EDT Office Visit [facility] Pulmonology - [address] [place] [address] Mark Love MD [address] [place] [address] documented as of this encounter Visit Diagnoses Not on filedocumented in this encounter Care Teams Global Upstream Marketing Manager Relationship Specialty Start Date End Date Collette Rendon APRN PCP - General Emergency Medicine 11/21/23 documented as of this encounter
--- OUTSIDE RECORDS SUMMARY | 2024-11-11 10:27 | XMS_ITS | Referral Summary ---
Author Organization [employer] ([place], [place], [place], [place]) Address [address] [place] [address] Care Team Providers Care Laboratory Manager Name Role Phone Collette Rendon APRN Primary Care Provider Allergies No known active allergies Medications apixaban (Eliquis) 5 mg tab tablet Take 1 tablet (5 mg total) by mouth. 05/26/2023 Active atorvastatin (LIPITOR) 80 MG tablet Take 1 tablet (80 mg total) by mouth daily. 11/05/2023 Active dilTIAZem (CARDIZEM CD) 120 MG 24 hr capsule Take by mouth. 09/17/2023 Active Bevespi Aerosphere 9-4.8 mcg HFAA SMARTSIG:Via Inhaler 09/17/2023 Active albuterol HFA (VENTOLIN HFA) 90 mcg/actuation inhaler Inhale 1 puff by mouth via inhaler every 6 (six) hours as needed for wheezing. 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/2023 TIA (transient ischemic attack) 11/04/2023 11/04/2023 Status post placement of implantable loop record er 03/14/2021 11/04/2023 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 11/04/2023 PFO (patent foramen ovale) 01/26/201911/03 Social History Tobacco Use Types Packs/Day Years Used Date Smoking Tobacco: Former Cigarettes Smokeless Tobacco: Never Tobacco Cessation:Counseling Given: Not Answered Alcohol Use Standard Drinks/Week Comments Never 0 (1 standard drink = 0.6 oz pur e alcohol) Employment Answer Date Recorded Help finding and keeping a job Not on file 0 11/03/2023 Family and Community Support Answer Golden e Recorded Help with Day to Day Activities Not on file 11/03/2023 Feeling Lonely or Isolated Not on file 11/02 Educational Attainment Answer Date Haider rded Speak language other than Turkish at home Not on file 11/03/2023 Want help with school or training Not on file 11/03/2023 Substance Use Answer Date Recorded Used prescription meds for non-medical reasons N ot on file 11/03/2023 Used illegal drugs past 12 months Not on file 11/03/2023 Sex and Gender Information Value Date Recorded Sex Assigned at Male 10/30/2021 8:44 PM CDT Legal Sex Male 8:44 PM CDT Gender Identity Male 10/30/2021 8:44 PM CDT Sexual Orientation Not on file Last Filed Vital Signs Vital Sign Reading Time Taken Comments Blood Pressure 123/62 01/08/2024 4:50 PM EDT Pulse 75 01/08/2024 4:50 PM EDT Temperature 36.6 C (97.8 F) 01/08/2024 4:30 PM EDT Respiratory Rate 18 01/08/2024 4:50 PM EDT Oxygen Saturation 98% 01/08/2024 4:50 PM EDT Inhaled Oxygen Concentration - - Weight 45.8 kg (101 lb) 01/08/2024 2:05 PM EDT Height 167.6 cm (5' 6 ) 01/08/2024 2:05 PM EDT Body Mass Index 16.3 01/08/2024 2:05 PM EDT Plan of Treatment Upcoming Encounters Date Type Department Care Team (Late st Contact Info) Description 11/25/2024 1:15 PM EDT Office Visit [facility] Pulmonology - [address] [place] [address] Mark Love MD [address] [place] [address] Procedures Procedure Name Priority Date/Time Associated Diagnosis Comments CTA ABDOMEN & PELVIS Routine 02/15/2020 10:51 AM EDT from Last 3 Months or Most Recently Relevant to Health Maintenance Results * CTA abdomen & pelvis (02/15/2020 10:51 AM EDT) Anatomical Region Laterality Modality Abdomen, Pelvis Computed Tomogra phy 02/15/2020 10:5 1 AM EDT Narrative 02/15/2020 7:[address] ANGIOGRAPHY, ABDOMEN AND PELVIS 02/15/2020 9:43 AM HISTORY: Status post aneurysm repair. COMPARISON: January 2020. PROCEDURE: Precontrast, Postcontrast images of the abdomen and pelvis were performed by computed tomography. Extensive 3D reconstruction images were performed. A CTA was performed. This study was performed with techniques to keep radiation doses as low as reasonably achievable, (ALARA). Individualized dose reduction techniques using automated exposure control or adjustment of mA and/or kV according to the patient size were employed. FINDINGS: ABDOMEN: The lung bases are clear. The heart is normal in size. The liver is normal. The spleen is unremarkable. No adrenal mass is present. The pancreas is normal. The kidneys demonstrate a 66 mm complex mass lower pole left kidney. There is no free fluid or adenopathy. Precontrast images demonstrate a few tiny stones in the right kidney. PELVIS: The appendix is normal. The urinary bladder is unremarkable. There is no significant free fluid or adenopathy. There are bilateral groin postoperative changes. CTA: The endograft is in good position. There is no evidence of endoleak. The aneurysm sac measures 48 mm, previously 50 mm. The visceral vessels demonstrate a focal high-grade stenosis origin left renal artery. IMPRESSION: No evidence of endoleak. Left renal mass. Follow up renal protocol CT recommended. High-grade stenosis origin left renal artery. Images reviewed, interpreted, and dictated by A. Reyes Vane, MD Procedure Note David Cifuentes MD - 08/20/2022 CT ANGIOGRAPHY, ABDOMEN AND PELVIS 02/15/2020 9:43 AM HISTORY: Status post aneurysm repair. COMPARISON: January 2020. PROCEDURE: Precontrast, Postcontrast images of the abdomen and pelvis were performed by computed tomography. Extensive 3D reconstruction images were performed. A CTA was performed. This study was performed with techniques to keep radiation doses as low as reasonably achievable, (ALARA). Individualized dose reduction techniques using automated exposure control or adjustment of mA and/or kV according to the patient size were employed. FINDINGS: ABDOMEN: The lung bases are clear. The heart is normal in size. The liver is normal. The spleen is unremarkable. No adrenal mass is present. The pancreas is normal. The kidneys demonstrate a 66 mm complex mass lower pole left kidney. There is no free fluid or adenopathy. Precontrast images demonstrate a few tiny stones in the right kidney. PELVIS: The appendix is normal. The urinary bladder is unremarkable. There is no significant free fluid or adenopathy. There are bilateral groin postoperative changes. CTA: The endograft is in good position. There is no evidence of endoleak. The aneurysm sac measures 48 mm, previously 50 mm. The visceral vessels demonstrate a focal high-grade stenosis origin left renal artery. IMPRESSION: No evidence of endoleak. Left renal mass. Follow up renal protocol CT recommended. High-grade stenosis origin left renal artery. Images reviewed, interpreted, and dictated by Denisha Cifuentes MD A Reyes Cifuentes MD IMG CT ORDERABLES Final R esult from Last 3 Months or Most Recently Relevant to Health Maintenance Insurance Stepan ARIAS CARLY PEREZ [id number] [place] [address] [address] [place] [address] [facility] Care Teams Laboratory Manager Relationship Specialty Start Date End Date Collette Rendon APRN PCP - General Emergency Medicine 11/21/23
--- OUTSIDE RECORDS SUMMARY | 2024-11-11 10:27 | XMS_ITS | Encounter Summary ---
Author Organization [employer] ([place], [place], [place], [place]) Address [address] [place] [address] Care Team Providers Care Asphalt Spreader Operator Name Role Phone Collette Rendon APRN Primary Care Provider [phone] [phone] Encounter Details Date Type Department Care Team (Late st Contact Info) Description 01/20/[address] [facility] [place] Family Medicine [facility] [place] [address] ProviderDulce Maria MD [address] [place] [address] Social History Tobacco Use Types Packs/Day Years Used Date Smoking Tobacco: Never Assessed Sex and Gender Information Value Date Recorded Sex Assigned at Male 10/30/2021 8:44 PM CDT Legal Sex Male 8:44 PM CDT Gender Identity Male 10/30/2021 8:44 PM CDT Sexual Orientation Not on file documented as of this encounter Miscellaneous Notes * Cerner Conversion Note - Historical ProviderMD - 01/20/2020 10:44 AM CDT Procedural Documentation Entered On: 01/20/2020 10:46 EDT Performed On: 01/20/2020 10:44 EDT by LORENA ORO RN Procedure Documentation Procedure to be Performed : arterial line Time Out Pause Time : 01/20/2020 10:40 EDT All Activity Suspended : Yes Team Verbally Confirms Information : Correct patient identity, Correct side and site are marked, Consent form is present and accurate, Agreement on the procedure to be done, Correct patient position, Confirm the skin prep has dried, Performed in location of procedure after prepped/draped Procedure Performed : arterial line placement Proper Use of Sterile Apparel per Policy : Yes Procedure Case Attendee : ADDISON LUCAS MD-ANS Procedure Case Attendee Role : Anesthesiologist Procedure Case Attendee Role 2 : lap cutter Case Attendee 2 : LORENA ORO RN MCGRANNAHAN, MARY, RN - 01/20/2020 10:44 EDT Postprocedure Documentation Current Time : 10:44 EST LORENA ORO RN - 01/20/2020 10:44 EDT Danny Level I Post Anesthesia Assessment Danny I Activity Status : Moves 4 extremities voluntarily or on command Danny l Respiratory Component : Able to deep breathe and cough freely Danny I Circulation Component : BP 20% of preanesthetic level Danny I Consciousness : Fully awake Danny l Oxygen Saturation : Needs oxygen to maintain > 92% Danny l Score : 9 LORENA ORO RN - 01/20/2020 10:44 EDT Danny Level II Assessment Danny ll Pain : Pain free LORENA ORO RN - 01/20/2020 10:44 EDT Vital Measurements Heart Rate, Apical : 77 bpm Pulse Rhythm : Regular Respiratory Rate : 16 Breaths/Min Blood Pressure Position : Supine Systolic Blood Pressure : 142 mmHg (HI) Diastolic Blood Pressure : 73 mmHg LORENA ORO RN - 01/20/2020 10:44 EDT documented in this encounter Plan of Treatment Upcoming Encounters Date Type Department Care Team (Late st Contact Info) Description 11/25/2024 1:15 PM EDT Office Visit [facility] Pulmonology - [address] [place] [address] Mark Love MD [address] [place] [address] documented as of this encounter Visit Diagnoses Not on filedocumented in this encounter Care Teams Asphalt Spreader Operator Relationship Specialty Start Date End Date Collette Rendon APRN PCP - General Emergency Medicine 11/21/23 documented as of this encounter
--- OUTSIDE RECORDS SUMMARY | 2024-11-11 10:27 | XMS_ITS | Encounter Summary ---
Author Organization [employer] ([place], [place], [place], [place]) Address [address] [place] [address] Care Team Providers Care Hog Room Supervisor Name Role Phone Collette Rendon APRN Primary Care Provider [phone] Encounter Details Date Type Department Care Team (Late st Contact Info) Description 02/25/2020 Transcribed Document [facility] [place] [facility] [place] [address] ProviderDulce Maria MD [address] [place] [address] Social History Tobacco Use Types Packs/Day Years Used Date Smoking Tobacco: Never Assessed Sex and Gender Information Value Date Recorded Sex Assigned at Male 10/30/2021 8:44 PM CDT Legal Sex Male 8:44 PM CDT Gender Identity Male 10/30/2021 8:44 PM CDT Sexual Orientation Not on file documented as of this encounter Miscellaneous Notes * Cerner Conversion Note - Historical ProviderMD - 02/25/2020 5:00 AM CDT Chart Check - Review Order Profile Entered On: 02/25/2020 5:30 EDT Performed On: 02/25/2020 5:00 EDT by NUPUR HERNANDEZ, RN Chart Check Powerplans Initiated/Discontinued as Appropriate : Yes NUPUR HERNANDEZ RN - 02/25/2020 5:30 EDT Electronically signed by Victorina [facility] Conversion [employer] Member Cerner at 08/21/2022 12:18 PM CDT documented in this encounter Plan of Treatment Upcoming Encounters Date Type Department Care Team (Late st Contact Info) Description 11/25/2024 1:15 PM EDT Office Visit [facility] Pulmonology - [address] [place] [phone] Mark Love MD [address] [place] [address] documented as of this encounter Visit Diagnoses Not on filedocumented in this encounter Care Teams Hog Room Supervisor Relationship Specialty Start Date End Date Collette Rendon, LEIDY PCP - General Emergency Medicine 11/21/23 documented as of this encounter
--- OUTSIDE RECORDS SUMMARY | 2024-11-11 10:27 | XMS_ITS | Encounter Summary ---
Author Organization [employer] ([place], [place], [place], [place]) Address [address] [place] [address] Care Team Providers Care Java Web Architect Name Role Phone Collette Rendon APRN Primary Care Provider [phone] Encounter Details Date Type Department Care Team (Late st Contact Info) Description 01/20/2020 Transcribed Document [facility] [place] [address] ProviderDulce Maria MD [address] [place] [address] Social History Tobacco Use Types Packs/Day Years Used Date Smoking Tobacco: Never Assessed Sex and Gender Information Value Date Recorded Sex Assigned at Male 10/30/2021 8:44 PM CDT Legal Sex Male 8:44 PM CDT Gender Identity Male 10/30/2021 8:44 PM CDT Sexual Orientation Not on file documented as of this encounter Miscellaneous Notes * Cerner Conversion Note - Historical ProviderMD - 01/20/2020 11:21 AM CDT [facility] Main OR Preop Summary Primary Physician: LISA WOOD MD-SUR Finalized Date/Time: 01/20/20 16:07:48 Pt. Name: HAYES MAYS.O.B./Sex: 1950 Male Med Rec #: [id number] Physician: LISA WOOD MD-SUR Financial #: [id number] Pt. Type: I Room/Bed: [facility]/1 Admit/Disch: 01/20/20 08:50:00 - Institution: [facility] PreOp Case Times Entry 1 In Preop 01/20/20 09:22:00 Ready for Holding n/a Room Patient Ready for 01/20/20 10:45:00 Surgery Patient Out of Preop 01/20/20 10:50:00 Patient Out of n/a Holding Room Last Modified By: LORENA ORO RN 01/20/20 16:07:44 [facility] PreOp Case Times Audit 01/20/20 16:07:44 Hearing Care Professional: ROBEL Modifier: AUSTENRANM <+> 1 Patient Out of Preop Finalized By: LORENA ORO, RN Document Signatures Signed By: LORENA ORO RN 01/20/20 16:07 Electronically signed by Victorina [facility] Conversion Glassware Verifier Cerner at 08/21/2022 11:53 AM CDT documented in this encounter Plan of Treatment Upcoming Encounters Date Type Department Care Team (Late st Contact Info) Description 11/25/2024 1:15 PM EDT Office Visit [facility] Pulmonology - [address] [place] [phone] Mark Love MD [address] [place] [address] documented as of this encounter Visit Diagnoses Not on filedocumented in this encounter Care Teams Java Web Architect Relationship Specialty Start Date End Date Collette Rendon APRN PCP - General Emergency Medicine 11/21/23 documented as of this encounter
--- OUTSIDE RECORDS SUMMARY | 2024-11-11 10:27 | XMS_ITS | Encounter Summary ---
Author Organization [employer] ([place], [place], [place], [place]) Address [address] [place] [address] Care Team Providers Care Musical Instruments Assembler Name Role Phone Collette Rendon APRN Primary Care Provider [phone] Encounter Details Date Type Department Care Team (Late st Contact Info) Description 01/21/2020 Transcribed Document [facility] [place] Family [place] [facility] [place] [address] ProviderDulce Maria MD [address] [place] [id number] Social History Tobacco Use Types Packs/Day Years Used Date Smoking Tobacco: Never Assessed Sex and Gender Information Value Date Recorded Sex Assigned at Male 10/30/2021 8:44 PM CDT Legal Sex Male 8:44 PM CDT Gender Identity Male 10/30/2021 8:44 PM CDT Sexual Orientation Not on file documented as of this encounter Miscellaneous Notes * Cerner Conversion Note - Historical ProviderMD - 01/21/2020 11:04 AM CDT Nursing Discharge Summary Entered On: 01/21/2020 11:06 EDT Performed On: 01/21/2020 11:04 EDT by JAVY WILLIAMSON RN Discharge Documentation Discharge Date/Time : 01/21/2020 10:50 EDT Transporter Signature : JAVY WILLIAMSON RN Patient Disposition, General : Discharge Discharge To : Home with ambulatory/outpatient follow-up Mode Of Departure, General Discharge : Wheelchair Accompanied By, Discharge : Spouse IV Discontinued : Yes Personal Belongings With Patient : Yes Pt's Own Supply of Medications Returned : No patient supply of medications to return Prescriptions Given to Patient : Yes Discharge Instructions Reviewed With, Opportunity For Questions Given : Patient, Spouse Patient Education Completed : Yes Number of Prescriptions Given : 1 Teaching Method : Explanation Teaching Evaluation : Verbalizes understanding JAVY WILLIAMSON RN - 01/21/2020 11:04 EDT documented in this encounter Plan of Treatment Upcoming Encounters Date Type Department Care Team (Late st Contact Info) Description 11/25/2024 1:15 PM EDT Office Visit [facility] Pulmonology - [address] [place] [phone] Mark Love MD [address] [place] [address] documented as of this encounter Visit Diagnoses Not on filedocumented in this encounter Care Teams Musical Instruments Assembler Relationship Specialty Start Date End Date Collette Rendon APRN PCP - General Emergency Medicine 11/21/23 documented as of this encounter
--- OUTSIDE RECORDS SUMMARY | 2024-11-11 10:27 | XMS_ITS | Encounter Summary ---
Author Organization [employer] ([place], [place], [place], [place]) Address [address] [place] [address] Care Team Providers Care Optical Goods Worker Name Role Phone Collette Rendon APRN Primary Care Provider [phone] Encounter Details Date Type Department Care Team (Late st Contact Info) Description 01/20/2020 Transcribed Document [facility] Radiology [address] [place] [address] Armond Shell MD [address] [facility] [place] [address] Social History Tobacco Use Types Packs/Day Years Used Date Smoking Tobacco: Never Assessed Sex and Gender Information Value Date Recorded Sex Assigned at Male 10/30/2021 8:44 PM CDT Legal Sex Male 8:44 PM CDT Gender Identity Male 10/30/2021 8:44 PM CDT Sexual Orientation Not on file documented as of this encounter Miscellaneous Notes * Cerner Conversion Note - Armond Shell MD - 01/20/2020 1:35 PM EDT DATE OF PROCEDURE: 01/20/2020 SURGEON: Armond Shell MD PREOPERATIVE DIAGNOSIS: Expanding infrarenal abdominal aortic aneurysm, greater than 5.5 cm. POSTOPERATIVE DIAGNOSIS: Expanding infrarenal abdominal aortic aneurysm, greater than 5.5 cm. PROCEDURES PERFORMED: 1. Right femoral percutaneous access, large-bore 14-Palestinian sheath. 2. Left femoral arterial exposure for endovascular deployment. 3. Infrarenal abdominal aortic aneurysm repair extending to iliac bifurcation, non-ruptured aorta. OPERATIVE INDICATION: The patient is a 69-year-old male who has had a small infrarenal aortic aneurysm which has been monitored. This has demonstrated rapid expansion, now greater than 5.5 cm, and he has evidence of severe left renal artery stenosis. He has been discussed to proceed with left renal artery stenting as well as infrarenal aortic aneurysm repair. OPERATIVE FINDINGS: 1. Aurora Excluder 31 main body with right-sided contralateral extension with a 14.5 x 14 cm limb. 2. No evidence of an endoleak upon completion. 3. Required for open exposure and repair of left femoral artery at the conclusion of the case. DESCRIPTION OF PROCEDURE: The patient was taken back to the operating room and placed in supine position on the operating table. Following IV sedation, his abdomen and groins were widely prepped and draped in standard sterile fashion. Time-out was taken, and under ultrasound guidance, bilateral common femoral arteries were accessed. A 6-Palestinian sheath was placed bilaterally. Two Perclose devices were used within both right and left groin. A 14-Palestinian sheath was placed within the right groin and an 18 within the left. Systemic heparinization was performed, and aortography was performed. Left renal artery did not appear, although it had about 60% stenosis in the proximal segment, it was not as bad as it was expected on CT angiography. Decision was made not to proceed with stenting of this section. Aurora main body device was advanced to the left femoral access and deployed below an infrarenal position. The contralateral gate was next cannulated successfully. The right internal iliac artery was localized. The contralateral limb was next fully deployed. Ipsilateral gate was next fully deployed as well. This was about 2 cm above the iliac bifurcation, but still had about 3 cm of seal zone. A Aurora aortic moulding balloon was used to angioplasty proximal and distal fixation points as well as junction of the graft. Completion aortography demonstrated no evidence of an endoleak. Both renals and bilateral internal and external iliac arteries remained patent. The right femoral sheath was removed, and Perclose devices were successful in achieving hemostasis. When the left 18-Palestinian sheath was removed, the Perclose did not achieve proper hemostasis. There were cut off, and open exposure was next performed. A 2-0 Prolene was placed in a pursestring fashion at the base of the entry site of the arteriotomy. This was successful in achieving hemostasis. Heparin was also reversed with protamine. Two-layer closure was performed with 3-0 Vicryl and 4-0 Monocryl. The patient was then taken back to Recovery in stable condition. There were no immediate complications. EBL was about 200 mL. /[id number] Armond Shell MD NNA/AQ / NNA / MODL /[id number] documented in this encounter Plan of Treatment Upcoming Encounters Date Type Department Care Team (Late st Contact Info) Description 11/25/2024 1:15 PM EDT Office Visit [facility] Pulmonology - [address] [place] [address] Mark Love MD [address] [place] [address] documented as of this encounter Visit Diagnoses Not on filedocumented in this encounter Care Teams Optical Goods Worker Relationship Specialty Start Date End Date Carolyngeraldobeverley ColletteLEIDY lopez PCP - General Emergency Medicine 11/21/23 documented as of this encounter
--- OUTSIDE RECORDS SUMMARY | 2024-11-11 10:27 | XMS_ITS | Encounter Summary ---
Author Organization [employer] ([place], [place], [place], [place]) Address [address] [place] [address] Care Team Providers Care Health Care Law Specialist Name Role Phone Carolyngeraldobeverley Collette CARUSON Primary Care Provider [phone] [phone] Encounter Details Date Type Department Care Team (Late st Contact Info) Description 01/20/2020 Transcribed Document [facility] [place] Family Medicine [facility] [place] [address] ProviderDulce Maria MD [address] [place] [address] Social History Tobacco Use Types Packs/Day Years Used Date Smoking Tobacco: Never Assessed Sex and Gender Information Value Date Recorded Sex Assigned at Male 10/30/2021 8:44 PM CDT Legal Sex Male 8:44 PM CDT Gender Identity Male 10/30/2021 8:44 PM CDT Sexual Orientation Not on file documented as of this encounter Miscellaneous Notes * Cerner Conversion Note - Historical ProviderMD - 01/20/2020 8:46 AM CDT Admission History, Adult Entered On: 01/20/2020 17:40 EDT Performed On: 01/20/2020 8:46 EDT by JAVY WILLIAMSON RN Advance Directive Patient has Advance Directive *Q : Yes, Advance Directive not with the patient Advance Directive Type : Living will Copy Advance Directive Verified/on Chart : No JAVY WILLIAMSON RN - 01/20/2020 17:38 EDT Anesthesia/Transfusion History Family History of Anesthesia Reaction : No prior transfusion(s) Transfusion History : Prior anesthesia without reaction Family History of Anesthesia Reaction : None JAVY WILLIAMSON RN - 01/20/2020 17:38 EDT Functional Assessment Living Situation : Home Current Home Treatments : None JAVY WILLIAMSON RN - 01/20/2020 17:38 EDT General Info Preferred Name : Hayes Arrived From : Home Mode of Arrival on Unit : Ambulatory Legal Guardian : Unaccompanied Support Person/Pt Rep Contact Information : Dalton Reeves [phone] Want Family/Rep/Phys Notified of Admit : No Emergency Contact #1 : Dalton Reeves Emergency Contact #1 Emergency Contact #1 Relationship : Emergency Contact #2 : none Emergency Contact #2 Phone Number : none Emergency Contact #2 Relationship : none Chief Complaint : AAA found on CT scan for lung to monitor nodule Primary Language : Nicaraguan Communication Barrier : Other: difficulty w/ word finding post CVA Catastrophe Claims Supervisor Needed : No JAVY WILLIAMSON RN - 01/20/2020 17:38 EDT Fall Risk Scales ABCs Fall Injury Risk Identification : Age, Coagulation, Surgery ABC Fall Injury Risk : Moderate to high injury risk JARQUIN Hx Falls Immediate/Within 3 Months : No Britton Secondary Diagnosis : Yes JARQUIN Use of Ambulatory Aid : Bed rest/Nurse assist JARQUIN IV Therapy or IV Access : Yes Britton Gait/Transferring : Normal, bedrest, immobile Britton Mental Status : Oriented to own ability Jarquin Fall Risk Score : 35 JARQUIN Fall Scale Risk Level : 25-45 Medium Risk [place] Fall Interventions : Adequate lighting, Assistive devices within reach, Bed in low position, Call device within reach, Fall prevention handout/education per facility policy, Frequent orientation to call device, Frequent orientation to surroundings, Non-slip footwear, Personal items within reach, Reinforced to call for assistance before getting out of bed, Room free of clutter/spills, Upper side-rails up, Wheels locked, Wires/Cords secured JAVY WILLIAMSON RN - 01/20/2020 17:38 EDT Health Histories Smoking Status : Former smoker, quit more than 30 days ago Smokeless Tobacco Status : Never Implant/Device Type, Cheesemaker Helper and Model : loop cardiac recorder; cardiac repair of foramen ovale JAVY WILLIAMSON RN - 01/20/2020 17:38 EDT Social History (As Of: 01/20/2020 17:40:19 EDT) Tobacco: Former smoker, quit more than 30 days ago Smoking Status. Never Smokeless Tobacco Status. Years of Use: 35. Packs/Tins Daily: 1.5. Last Used: Quit 2014. (Last Updated: 01/20/2020 09:41:45 EDT by LORENA ORO RN) Alcohol: Alcohol Use History No. (Last Updated: 01/20/2020 09:41:52 EDT by LORENA ORO RN) Substance Abuse: Drug Use Hx: No. (Last Updated: 01/20/2020 09:41:57 EDT by LORENA ORO RN) Height and Weight, Clinical Dosing Height Source : Measured Height Entry Format : Mathews Height, Feet : 5 ft(Converted to: 152 cm, 60 Inch) Height, Inches : 6 Inch(Converted to: 0 ft 6 Inch, 15.24 cm) Clinical Height : 167.64 cm Weight Source : Standing scale Weight Entry Format : Mathews Clinical Dosing Weight : 62.68 kg Weight, Pounds : 137.9 lb Body Surface Area (BSA) : 1.71 m2 Body Mass Index : 22.3 kg/m2 [place] Body Weight : 63 kg JAVY WILLIAMSON RN - 01/20/2020 17:38 EDT Infectious Disease History Has the patient ever been tested for COVID-19? : Yes, Patient stated results pending Where are the test results? : Results Pending Date of COVID-19 test known? : Yes Date of COVID-19 Test : 01/18/2020 EDT Does patient have symptoms of COVID-19? : No COVID19 Screening : No Experiencing Infectious Disease Symptoms : No symptoms Physical contact outside [place] in the last 30 days : No Infectious Disease History : Mononucleosis, Other: pt states had some childhood diseases but unable to recall specifics Tuberculosis Symptoms : None JAVY WILLIAMSON RN - 01/20/2020 17:38 EDT Influenza Vaccine Asmt, Adult Previous Vaccines from Immunization Schedule : No qualifying data available. Influenza Immunization, Current Season : No Inactivated Flu Vaccine Contraindications : No contraindications to inactivated influenza vaccine Transplant Workup/Recent Transplant : No Order for Influenza Vaccine : Order for influenza vaccine sent to pharmacy JAVY WILLIAMSON RN - 01/20/2020 17:38 EDT Pneumococcal Vaccine Previous Vaccines from Immunization Schedule : No qualifying data available. Pneumonia Immunization Received : No Pneumococcal Risk Assessment < Age 65 : N/A- Patient 65 years of age or older Pneumococcal Vaccine Contraindications : No contraindications to pneumococcal vaccine Transplant Workup/Recent Transplant : No Order for Pneumococcal Vaccine : Order for pneumococcal vaccine sent to pharmacy JAVY WILLIAMSON RN - 01/20/2020 17:38 EDT Nutrition History Eating Poorly Due to Decreased Appetite : No Unplanned Weight Loss in Past 3-6 Months : No Malnutrition Screening Tool Total(mal) : 0 Malnutrition Screening Tool Risk Level : Patient not at risk JAVY WILLIAMSON RN - 01/20/2020 17:38 EDT Story Suicide Severity Rating Scale (C-SSRS) CSSRS Past Month Wish to be : No CSSRS Past Month Suicidal Thoughts : No CSSRS Lifetime Suicide Behavior : No Suicide Severity Rating Score : 0 Suicide Severity Rating : No Additional Care Required at this time JAVY WILLIAMSON RN - 01/20/2020 17:38 EDT Psychosocial History Do You Have a History of the Following? : Patient denies history Currently in Unsafe Situation : No JAVY WILLIAMSON RN - 01/20/2020 17:38 EDT Sleep Apnea Risk Assmt Hx of Obstructive Sleep Apnea Diagnosis : No Snore Loudly : No Tired, Fatigued, or Sleepy During Day : No Observed Stopping Breathing During Sleep : No Have/Are Being Treated for Hypertension : No BMI Greater Than 35 kg/m2 : No Age over 50 Years Old : Yes Neck Circumference Greater Than 40 cm : No Gender Male : Yes STOP-BANG Sleep Apnea Risk Level Score : 2 JAVY WILLIAMSON RN - 01/20/2020 17:38 EDT Valuables and Belongings Valuables and Belongings : Clothing Clothing : Common streetwear Clothing Disposition : Bedside JAVY WILLIAMSON RN - 01/20/2020 17:38 EDT documented in this encounter Plan of Treatment Upcoming Encounters Date Type Department Care Team (Late st Contact Info) Description 11/25/2024 1:15 PM EDT Office Visit [facility] Pulmonology - [address] [place] [address] Mark Love MD [address] [place] [address] documented as of this encounter Visit Diagnoses Not on filedocumented in this encounter Care Teams Health Care Law Specialist Relationship Specialty Start Date End Date Collette Rendon, LEIDY PCP - General Emergency Medicine 11/21/23 documented as of this encounter
--- OUTSIDE RECORDS SUMMARY | 2024-11-11 10:27 | XMS_ITS | Clinical Summary ---
Author Organization [employer] ([place], [place], [place], [place]) Address [address] [place] [address] Care Team Providers Care Reel Cart Operator Name Role Phone Collette Rendon APRN [...] 03/18/2019 11/04/2023 PFO (patent foramen ovale) 01/26/201911/03 Family History Medical History Relation Name Comments Heart attack Father Stroke Other Relation Name Status Comments Father Other Social History Tobacco Use Types Packs/Day Years [...] Date Haider rded Speak language other than Nigerien at home Not on file 11/03/2023 Want [...] Description 11/25/2024 1:15 PM EDT Office Visit [facility] Pulmonology - [address] [place] [address] Mark Love MD [address] [place] [address] Health Maintenance Due Date Last Done Comments CT Colonography 1951 FOBT/FIT 1950 Fit-DNA (Cologuard) 1950 Sigmoidoscopy 1950 Depression Screening (12+) 1963 Hepatitis C Screening 12/24/1969 DTAP/TDAP/TD VACCINES (1 - Tdap) 12/24/1970 Shingles Vaccine (Zoster) (1 of 2) 12/24/2001 Respiratory Syncytial Virus (RSV) Adult or (1 - Risk 60-74 years 1-dose series) 2011 Medicare Initial AWV G0438 12/04/2017 Pneumococcal 50+ years (2 of 2 - PPSV23) 03/17/2020 01/21/2020, 08/29/2016 COVID-19 VACCINE (2023-2 5 season) 2024 02/19/2023, 01/22/2022, 10/24/2021, Additional history exists Falls Risk Screening 05/05/2024 Influenza Vaccine (#1) 2025 01/21/2020 Tobacco Cessation Counseling and Screening (12+) 01/07/2025 01/08/2024 Colonoscopy 01/07/2027 01/08/2024 Colorectal Cancer Screening 01/07/2027 Abdominal Aortic Aneurysm (A AA) Screen Completed 11/04/2023, 02/15/2020, 01/04/2020 Procedures Procedure Name Priority Date/Time Associated Diagnosis [...] interpreted, and dictated by Denisha Cifuentes MD Procedure Note David Cifuentes MD - [...] interpreted, and dictated by Denisha Cifuentes MD us A Reyes Cifuentes MD IMG CT ORDERABLES Final R esult from Last 3 Months or Most Recently Relevant to Health Maintenance Insurance [place] [address] [place] [address] Care Teams Reel Cart Operator Relationship Specialty Start Date End Date Collette Rendon APRN PCP - General Emergency Medicine 11/21/23
--- OUTSIDE RECORDS SUMMARY | 2024-11-11 10:27 | XMS_ITS | Encounter Summary ---
Author Organization [employer] ([place], [place], [place], [place]) Address [address] [place] [address] Care Team Providers Care Graduate Intern Name Role Phone Collette Rendon APRN Primary Care Provider +1 [phone] Encounter Details Date Type Department Care Team (Late st Contact Info) Description 02/23/2020 Transcribed Document [facility] [place] [address] [place] [address] ProviderDulce Maria MD [address] [place] [address] Social History Tobacco Use Types Packs/Day Years Used Date Smoking Tobacco: Never Assessed Sex and Gender Information Value Date Recorded Sex Assigned at Male 10/30/2021 8:44 PM CDT Legal Sex Male 8:44 PM CDT Gender Identity Male 10/30/2021 8:44 PM CDT Sexual Orientation Not on file documented as of this encounter Miscellaneous Notes * Cerner Conversion Note - Historical ProviderMD - 02/23/2020 12:20 PM CDT PAT Adult Entered On: 02/23/2020 12:34 EDT Performed On: 02/23/2020 12:20 EDT by FARRAH ALMARAZ RN Vital Measurements Temperature Source : Temporal artery scanning Temperature Mode : Fahrenheit Temperature, Fahrenheit : 98.4 Deg F Clinical Temperature, C : 36.9 Deg C Pulse Method : Pulse Oximetry Peripheral Pulse Rate : 71 bpm Respiratory Rate : 18 Breaths/Min Blood Pressure Location : Arm, right upper Blood Pressure Source : Non-Invasive BP Device Blood Pressure Position : Sitting Systolic Blood Pressure : 145 mmHg (HI) Diastolic Blood Pressure : 83 mmHg Oxygen Saturation : 98 % Oxygen Therapy Mode : Room air FARRAH ALMARAZ RN - 02/23/2020 12:20 EDT Pain Assessment Pain Assessment : Follow-up assessment Pain Scale Goal : 5 FARRAH ALMARAZ RN - 02/23/2020 12:20 EDT Height and Weight, Clinical Dosing Height Source : Measured Height Entry Format : [place] Height, Feet : 5 ft(Converted to: 152 cm, 60 Inch) Height, Inches : 6 Inch(Converted to: 0 ft 6 Inch, 15.24 cm) Clinical Height : 167.64 cm Weight Source : Standing scale Weight Entry Format : [place] Clinical Dosing Weight : 60.91 kg Weight, Pounds : 134 lb Weight, Ounces : 0 oz Body Surface Area (BSA) : 1.69 m2 Body Mass Index : 21.7 kg/m2 [employer] Body Weight : 63 kg FARRAH ALMARAZ RN - 02/23/2020 12:20 EDT Health Histories Smoking Status : Former smoker, quit more than 30 days ago Smokeless Tobacco Status : Never Implant/Device Type, Personnel Generalist Manager and Model : loop cardiac recorder; cardiac repair of foramen ovale FARRAH ALMARAZ RN - 02/23/2020 12:20 EDT Social History (As Of: 02/23/2020 12:34:59 EDT) Tobacco: Former smoker, quit more than 30 days ago Smoking Status. Never Smokeless Tobacco Status. Years of Use: 35. Packs/Tins Daily: 1.5. Last Used: Quit 2014. (Last Updated: 01/20/2020 09:41:45 EDT by LORENA ORO RN) Alcohol: Alcohol Use History No. (Last Updated: 01/20/2020 09:41:52 EDT by LORENA ORO, DINA) Substance Abuse: Drug Use Hx: No. (Last Updated: 01/20/2020 09:41:57 EDT by LORENA ORO, DINA) Home/Environment: Lives with Spouse. Living situation: Home/Independent. (Last Updated: 02/23/2020 12:25:49 EDT by FARRAH ALMARAZ RN) Employment/School: Retired (Last Updated: 02/23/2020 12:25:57 EDT by FARRAH ALMARAZ RN) Infectious Disease History Has the patient ever been tested for COVID-19? : Yes, Patient stated results pending Where was the COVID-19 Testing completed? : [facility] Date of COVID-19 test known? : Yes Does patient have symptoms of COVID-19? : No COVID19 Screening : No Experiencing Infectious Disease Symptoms : No symptoms Physical contact outside [place] in the last 30 days : No Infectious Disease History : Chicken pox/Shingles, Influenza, Mononucleosis, Other: pt states had some childhood diseases but unable to recall specifics Tuberculosis Symptoms : None FARRAH ALMARAZ RN - 02/23/2020 12:20 EDT COVID19 PreProcedure Screening Has patient been isolated since the test : Yes Exposed to COVID19 symptoms since test? : No Shivani Sanchez RN - 02/24/2020 8:32 EDT Is this an Emergent or Add on Procedure? : No FARRAH ALMARAZ RN - 02/23/2020 12:20 EDT Anesthesia/Transfusion History Family History of Anesthesia Reaction : No prior transfusion(s) Blood Transfusion Acceptable to Patient : Yes Transfusion History : Prior anesthesia without reaction Family History of Anesthesia Reaction : None FARRAH ALMARAZ RN - 02/23/2020 12:20 EDT Functional Assessment Functional ADL Evaluation Index EBN Bathing : Independent (2) Dressing : Independent (2) Toileting : Independent (2) Transferring Bed or Chair : Independent (2) Continence : Independent (2) Feeding : Independent (2) FARRAH ALMARAZ RN - 02/23/2020 12:20 EDT ADL Index Score : 12 FARRAH ALMARAZ RN - 02/23/2020 12:20 EDT Advance Directive Copy Advance Directive Verified/on Chart : No Shivani Sanchez RN - 02/24/2020 8:32 EDT Patient has Advance Directive *Q : Yes, Advance Directive not with the patient Request Family/Rep to Provide Copy of AD : Yes Advance Directive Type : Living will FARRAH ALMARAZ RN - 02/23/2020 12:20 EDT Spiritual/Cultural Needs Any Spiritual/Cultural Needs or Requests : No FARRAH ALMARAZ RN - 02/23/2020 12:20 EDT [place] Suicide Severity Rating Scale (C-SSRS) CSSRS Past Month Wish to be : No CSSRS Past Month Suicidal Thoughts : No CSSRS Lifetime Suicide Behavior : No Suicide Severity Rating Score : 0 Suicide Severity Rating : No Additional Care Required at this time FARRAH ALMARAZ RN - 02/23/2020 12:20 EDT Psychosocial History Do You Have a History of the Following? : Patient denies history Currently in Unsafe Situation : No FARRAH ALMARAZ RN - 02/23/2020 12:20 EDT Education Topics, Periop Preadmission Perioperative Education Grid Arrival Time/Place : Verbalizes understanding Infection Control : Verbalizes understanding IV's : Verbalizes understanding NPO Status/Directions : Verbalizes understanding Pain Management : Verbalizes understanding Preprocedure Preparations : Verbalizes understanding Preprocedure Tests/Labs : Verbalizes understanding Remove Body Piercings : Verbalizes understanding Take/Hold Medications Pre-Procedure : Verbalizes understanding FARRAH ALMARAZ RN - 02/23/2020 12:20 EDT General Info Preferred Name : Hayes Arrived From : Home Mode of Arrival on Unit : Ambulatory Legal Guardian : Spouse Legal Guardian : No Support Person/Patient Snack Bar Cook : Yes Support Person/Pt Rep Name : Dalton Reeves - Support Person/Pt Rep Contact Information : [phone] w Want Family/Rep/Phys Notified of Admit : No Emergency Contact #1 : Dalton Reeves Emergency Contact #1 Emergency Contact #1 Relationship : Emergency Contact #2 : na Emergency Contact #2 Phone Number : na Emergency Contact #2 Relationship : na Information Obtained From : Patient Primary Language : Barbadian Communication Barrier : Other: difficulty w/ word finding post CVA Insurance Attorney Needed : No Objects to Sharing Info w Family : No Clinical Trials Participant *Q : None CTP, None *Q : Yes FARRAH ALMARAZ RN - 02/23/2020 12:20 EDT Momo Scale Momo Sensory Perception : No impairment Momo Moisture : Rarely moist Momo Activity : Walks frequently Momo Mobility : No limitation Momo Nutrition : Adequate Momo Friction and Shear : No apparent problem Momo Score : 22 FARRAH ALMARAZ RN - 02/23/2020 12:20 EDT Sleep Apnea Risk Assmt Hx of [...] Sleep Apnea Risk Level Score : 2 FARRAH ALMARAZ, RN - 02/23/2020 12:20 EDT Electronically signed by [facility], [facility] Conversion Hog Sticker Cerner at 08/21/2022 12:05 PM CDT documented in this encounter Plan of Treatment Upcoming Encounters Date Type Department Care Team (Late st Contact Info) Description 11/25/2024 1:15 PM EDT Office Visit [facility] Pulmonology - [address] [place] [address] Mark Love MD [address] [place] [address] documented as of this encounter Visit Diagnoses Not on filedocumented in this encounter Care Teams Graduate Intern Relationship Specialty Start Date End Date Collette Rendon APRN PCP - General Emergency Medicine 11/21/23 documented as of this encounter
--- OUTSIDE RECORDS SUMMARY | 2024-11-11 10:27 | XMS_ITS | Encounter Summary ---
Author Organization [employer] ([place], [place], [place], [place]) Address [address] [place] [address] Care Team Providers Care Experimental Mechanic Electrical Name Role Phone Collette Rendon APRN Primary Care Provider [phone] Encounter Details Date Type Department Care Team (Late st Contact Info) Description 02/25/2020 Transcribed Document [facility] [place] [facility] [place] [address] ProviderDulce Maria MD [address] [place] [address] Social History Tobacco Use Types Packs/Day Years Used Date Smoking Tobacco: Never Assessed Sex and Gender Information Value Date Recorded Sex Assigned at Male 10/30/2021 8:44 PM CDT Legal Sex Male 8:44 PM CDT Gender Identity Male 10/30/2021 8:44 PM CDT Sexual Orientation Not on file documented as of this encounter Miscellaneous Notes * Cerner Conversion Note - Historical ProviderMD - 02/25/2020 2:00 AM CDT Bilingual Medical Receptionist Details Entered On: 02/25/2020 4:24 EDT Performed On: 02/25/2020 2:00 EDT by NUPUR HERNANDEZ RN Order Details Transport Mode Order Detail : Wheelchair Isolation Precautions Order Detail : Standard Precautions Order Detail : N/A IV Order Detail : 1 Oxygen Order Detail : 1 Nurse Collect Order Detail : 1 Lift/Transfer : Independent Central Line Order Detail : No Room Service : Appropriate Arterial Line : Yes NUPUR HERNANDEZ RN - 02/25/2020 4:24 EDT documented in this encounter Plan of Treatment Upcoming Encounters Date Type Department Care Team (Late st Contact Info) Description 11/25/2024 1:15 PM EDT Office Visit [facility] Pulmonology - [address] [place] [address] Mark Love MD [address] [place], [place] [address] documented as of this encounter Visit Diagnoses Not on filedocumented in this encounter Care Teams Experimental Mechanic Electrical Relationship Specialty Start Date End Date Collette Rendon, LEIDY PCP - General Emergency Medicine 11/21/23 documented as of this encounter
--- OUTSIDE RECORDS SUMMARY | 2024-11-11 10:27 | XMS_ITS | Encounter Summary ---
Author Organization [employer] ([place], [place], [place], [place]) Address [address] [place] [address] Care Team Providers Care Team Supervisor Name Role Phone Collette Rendon APRN Primary Care Provider [phone] Encounter Details Date Type Department Care Team (Late st Contact Info) Description 01/21/2020 Transcribed Document [facility] [place] [facility] [place] [address] ProviderDulce Maria MD [address] [place] [address] Social History Tobacco Use Types Packs/Day Years Used Date Smoking Tobacco: Never Assessed Sex and Gender Information Value Date Recorded Sex Assigned at Male 10/30/2021 8:44 PM CDT Legal Sex Male 8:44 PM CDT Gender Identity Male 10/30/2021 8:44 PM CDT Sexual Orientation Not on file documented as of this encounter Miscellaneous Notes * Cerner Conversion Note - Historical ProviderMD - 01/21/2020 10:06 AM CDT Therapy Screen, OT Entered On: 01/21/2020 13:22 EDT Performed On: 01/21/2020 10:06 EDT by JOSE RAMIREZ OTR/Damon Therapy Screen, OT Medical Chart Reviewed : Yes Person Providing Information : Nurse Screen Completed : Yes Recommendations for Evaluation OT : Do not recommend Occupational Therapy evaluation Therapy Screen Findings, OT : Patient at functional baseline Recommendations Upon Discharge : None Additional Therapy Screen Comment : Pt ambulated with nsg staff independently in room, is discharging home today, and just tested positive for COVID-19. RN reports no OT concerns at this time. JOSE RAMIREZ OTR/L - 01/21/2020 13:21 EDT Electronically signed by Victorina, [facility] Conversion Leadership Program Intern Cerner at 08/21/2022 12:06 PM CDT documented in this encounter Plan of Treatment Upcoming Encounters Date Type Department Care Team (Late st Contact Info) Description 11/25/2024 1:15 PM EDT Office Visit [facility] Pulmonology - [address] [place] [id number] Mark Love MD [address] [place] [address] documented as of this encounter Visit Diagnoses Not on filedocumented in this encounter Care Teams Team Supervisor Relationship Specialty Start Date End Date Collette Rendon, [employer]IPPER [employer] TURNER PCP - General Emergency Medicine 11/21/23 documented as of this encounter
--- OUTSIDE RECORDS SUMMARY | 2024-11-11 10:27 | XMS_ITS | Encounter Summary ---
Author Organization [employer] ([place], [place], [place], [place]) Address [address] [place] [address] Care Team Providers Care Collection Analyst Name Role Phone Collette Rendon APRN Primary Care Provider [phone] [phone] Encounter Details Date Type Department Care Team (Late st Contact Info) Description 01/21/2020 Transcribed Document [facility] [place] Family [place] [facility] [place] [address] ProviderDulce Maria MD [address] [place] [address] Social History Tobacco Use Types Packs/Day Years Used Date Smoking Tobacco: Never Assessed Sex and Gender Information Value Date Recorded Sex Assigned at Male 10/30/2021 8:44 PM CDT Legal Sex Male 8:44 PM CDT Gender Identity Male 10/30/2021 8:44 PM CDT Sexual Orientation Not on file documented as of this encounter Miscellaneous Notes * Cerner Conversion Note - Historical ProviderMD - 01/21/2020 12:23 PM CDT CARLOS CRAVEN, [address] [facility] [address] Re: HAYES MAYS Date of Visit: 01/20/2020 Dear CARLOS CRAVEN Thank you for allowing Dr. Shell to participate in your patient's care. Please see the accompanying information that I would like to share with you regarding your patient. This Document is confidential and intended solely for the use of the individual or entity to which it is addressed. If you are not the named addressee, please disregard and do not disseminate, distribute or copy this information. If you are the intended recipient any disclosure of this information and its contents is strictly prohibited. Sincerely, MILO BEAVERS [address] [facility] [place] [address] The following document(s) were included in the letter: January 21, 2020 12:09:34 EDT - (01/21/2020) Discharge Summary- [place] Electronically signed by Victorina [facility] Conversion Spray Painting Machine Operator Cerner at 08/21/2022 11:58 AM CDT documented in this encounter Plan of Treatment Upcoming Encounters Date Type Department Care Team (Late st Contact Info) Description 11/25/2024 1:15 PM EDT Office Visit [facility] Pulmonology - [address] [place] [address] Mark Love MD [address] [place] [address] documented as of this encounter Visit Diagnoses Not on filedocumented in this encounter Care Teams Collection Analyst Relationship Specialty Start Date End Date Collette Rendon, LEIDY PCP - General Emergency Medicine 11/21/23 documented as of this encounter
--- OUTSIDE RECORDS SUMMARY | 2024-11-11 10:27 | XMS_ITS | Encounter Summary ---
Author Organization [employer] ([place], [place], [place], [place]) Address [address] [place] [address] Care Team Providers Care Crystal Finisher Name Role Phone Carolyngeraldobeverley Collette CARUSON Primary Care Provider +1 [phone] Encounter Details Date Type Department Care Team (Late st Contact Info) Description 01/20/2020 Transcribed Document [facility] [place] [address] ProviderDulce Maria MD [address] [place] [address] Social History Tobacco Use Types Packs/Day Years Used Date Smoking Tobacco: Never Assessed Sex and Gender Information Value Date Recorded Sex Assigned at Male 10/30/2021 8:44 PM CDT Legal Sex Male 8:44 PM CDT Gender Identity Male 10/30/2021 8:44 PM CDT Sexual Orientation Not on file documented as of this encounter Miscellaneous Notes * Cerner Conversion Note - Historical ProviderMD - 01/20/2020 12:31 PM CDT Pain Assessment Entered On: 01/20/2020 15:59 EDT Performed On: 01/20/2020 13:25 EDT by JAVY WILLIAMSON RN Intervention Information: morphine Performed by JAVY WILLIAMSON RN on 01/20/2020 12:55:00 EDT morphine,4mg IV Push,Peripheral Line 1,Pain (Severe 7-10) Pain Assessment Pain Assessment : Follow-up assessment Pain Improved by Intervention : Yes JAVY WILLIAMSON RN - 01/20/2020 15:59 EDT Electronically signed by Victorina [facility] Conversion Stone Planer Cerner at 08/21/2022 12:18 PM CDT documented in this encounter Plan of Treatment Upcoming Encounters Date Type Department Care Team (Late st Contact Info) Description 11/25/2024 1:15 PM EDT Office Visit [facility] Pulmonology - [address] [place] [address] Mark Love MD [address] [place] [address] documented as of this encounter Visit Diagnoses Not on filedocumented in this encounter Care Teams Crystal Finisher Relationship Specialty Start Date End Date Collette Rendon, LEIDY PCP - General Emergency Medicine 11/21/23 documented as of this encounter
--- OUTSIDE RECORDS SUMMARY | 2024-11-11 10:27 | XMS_ITS | Encounter Summary ---
Author Organization Healthcare Address [address] [place] [address] Care Team Providers Care Assistant Hairstylist Name Role Phone Dinh Ritchie MD Primary Care Provider [phone] Encounter Details Date Type Department Care Team (Latest Contact Info) Description 10/12/2024 Travel Social History Tobacco Use Types Packs/Day Years [...] on file documented as of this encounter Plan of Treatment Upcoming Encounters Date Type Department Care Team (Late st Contact Info) Description 08/11/2025 1:20 PM EDT Office Visit [facility] [place] [address] [facility] [place] [address] Allie Serna MD [address] [place] [address] documented as of this encounter Visit Diagnoses Not on filedocumented in this encounter Additional Health Concerns Assessment Noted Time PHQ-9 Depression Total Score: 0 08/10/19 25 12:52 PM EDT A fall risk assessment has been complete d for the patient 08/09/2024 12:52 PM EDT A Body Mass Index follow-up plan has been documented for the patient 08/09/2024 1:35 PM EDT documented as of this encounter Care Teams Assistant Hairstylist Relationship Specialty Start Date End Date Dinh Ritchie MD [address] [facility] [address] PCP - General 09/15/20 documented as of this encounter
--- OUTSIDE RECORDS SUMMARY | 2024-11-11 10:27 | XMS_ITS | Encounter Summary ---
Author Organization [employer] ([place], [place], [place], [place]) Address [address] [place] [address] Care Team Providers Care Oil Well Cable Tool Operator Name Role Phone Collette Rendon LEIDY Primary Care Provider [phone] Encounter Details Date Type Department Care Team (Late st Contact Info) Description 01/20/2020 Transcribed Document [facility] Radiology 1 [place] [address] [place] [address] [place] [address] [place] [address] Social History Tobacco Use Types Packs/Day Years Used Date Smoking Tobacco: Never Assessed Sex and Gender Information Value Date Recorded Sex Assigned at Male 10/30/2021 8:44 PM CDT Legal Sex Male 8:44 PM CDT Gender Identity Male 10/30/2021 8:44 PM CDT Sexual Orientation Not on file documented as of this encounter Miscellaneous Notes * Cerner Conversion Note - Armond Shell MD - 01/20/2020 11:04 AM EDT Patient: HAYES MAYS Age: 69 years Sex: Male : 1950 Associated Diagnoses: None Author: DAMONRJACLYN APRN Chief Complaint AAA, PAD Review of Systems ROS reviewed as documented in chart no change since last seen by surgeon Health Status Allergies: Allergic Reactions (Selected) No Known Medication Allergies, Allergies (1) Active Reaction No Known Medication Allergies None Documented Current medications: (Selected) Inpatient Medications Ordered Ancef: 2 Gram, 50 mL, 100 mL/Hr, IV Piggyback, PREOP Normal Saline Flush: 10 mL, IV Push, 1-Time Documented Medications Documented Bevespi Aerosphere: 2 Puff, Inhalation, BID, 0 Refill(s) Ventolin HFA 90 mcg/inh inhalation aerosol: Puff, Inhalation, Q6H, PRN: as needed for wheezing, 0 Refill(s) aspirin: 81 mg, Oral, Daily, 0 Refill(s) atorvastatin: Oral, Daily, 0 Refill(s), Home Medications (4) Active aspirin 81 mg, Oral, Daily atorvastatin , Oral, Daily Bevespi Aerosphere 2 Puff, Inhalation, BID Ventolin HFA 90 mcg/inh inhalation aerosol , PRN, Inhalation, Q6H , Medications (2) Active Scheduled: (2) #NaCl 0.9% *FLUSH* inj 10 mL 10 mL, IV Push, 1-Time ceFAZolin/D5w 2 Gram 50 mL, IV Piggyback, PREOP Continuous: (0) PRN: (0) Problem list: All Problems Patent foramen ovale -repaired / SNOMED CT 324393831 / Confirmed Lung nodule / SNOMED CT 8566030855 / Confirmed H/O: stroke 01/2019- word finding problems / SNOMED CT 8532092320 / Confirmed Cyst of left kidney / SNOMED CT 5641198459 / Confirmed COPD (chronic obstructive pulmonary disease) / SNOMED CT 78833329 / Confirmed At risk for sleep apnea / IMO [id number] / Confirmed Abdominal aortic aneurysm / SNOMED CT 046599064 / Confirmed, Active Problems (7) Abdominal aortic aneurysm At risk for sleep apnea COPD (chronic obstructive pulmonary disease) Cyst of left kidney H/O: stroke 01/2019- word finding problems Lung nodule Patent foramen ovale -repaired PAD Histories Past Medical History: No active or resolved past medical history items have been selected or recorded. Family History: No family history items have been selected or recorded. Procedure history: repair of patent foramen ovale. loop cardiac monitoring placement. Physical Examination VS/Measurements Vital Signs/Vital Measures 01/20/2020 9:30 EDT Systolic Blood Pressure 165 mmHg HI Diastolic Blood Pressure 89 mmHg Temperature Source Oral Temperature Mode Fahrenheit Temperature, Fahrenheit 97.8 Deg F Heart Rate Monitored 77 bpm Respiratory Rate 20 Breaths/Min , Vitals Signs (last 24 hrs) Last Charted Minimum Maximum Temp 97.8 (JAN 19 09:30) 97.8 (JAN 19:30) 97.8 (JAN 19:30) Mon HR 77 (JAN 19 09:30) 77 (JAN 19 09:30) 77 (JAN 19 09:30) Resp Rate 20 (JAN 19:30) 20 (JAN 19 09:30) 20 (JAN 19 09:30) SBP H 165 (JAN 19 09:30) H 165 (JAN 19 09:30) H 165 (JAN 19:30) DBP 89 (JAN 19:30) 89 (JAN 19:30) 89 (JAN 19:30) , Measurements from flowsheet : Measurements 01/20/2020 9:38 EDT Height Source Measured Height Entry Format Burnet Height/Length, INDONESIAN (ft) 5 ft Height/Length INDONESIAN 6 Inch CLINICALHEIGHT 167.64 cm Arrington Body Weight 63 kg Weight Source Standing scale Weight Entry Format Burnet Weight Kazakh lb 137.9 lb CLINICALWEIGHT 62.68 kg Body Surface Area (BSA) 1.71 m2 Body Mass Index 22.3 kg/m2 General: Alert and oriented, No acute distress. Eye: Pupils are equal, round and reactive to light, Extraocular movements are intact, glasses. HENT: Normocephalic, Normal hearing. Neck: Supple, Non-tender. Respiratory: Respirations are non-labored, decreased lung sounds throughout. Cardiovascular: Normal rate, Regular rhythm, No murmur, No gallop, No edema, bev LE pedal pulses + per doppler. Gastrointestinal: Soft, Non-tender. Genitourinary: No costovertebral angle tenderness. Lymphatics: No lymphadenopathy neck, axilla, groin. Musculoskeletal: Normal range of motion, Normal strength. Integumentary: Warm, Dry, Nikep. Neurologic: Alert, Oriented. Psychiatric: Cooperative, Appropriate mood & affect. Review / Management Results review: No qualifying data available. Impression and Plan Condition: Stable. documented in this encounter Plan of Treatment Upcoming Encounters Date Type Department Care Team (Late st Contact Info) Description 11/25/2024 1:15 PM EDT Office Visit [facility] Pulmonology - [address] [place] [address] Mark Love MD [address] [place] [address] documented as of this encounter Visit Diagnoses Not on filedocumented in this encounter Care Teams Oil Well Cable Tool Operator Relationship Specialty Start Date End Date BethbeverleyCollette, CIGARETTE MAKING EXAMINER PCP - General Emergency Medicine 11/21/23 documented as of this encounter
--- OUTSIDE RECORDS SUMMARY | 2024-11-11 10:27 | XMS_ITS | Encounter Summary ---
Author Organization [employer] ([place], [place], [place], [place]) Address [address] [place] [address] Care Team Providers Care Director Mobile Media Solutions Name Role Phone Collette Rendon APRN Primary Care Provider [phone] Encounter Details Date Type Department Care Team (Late st Contact Info) Description 01/21/2020 Transcribed Document [facility] Radiology 1 [place] [address] Armond Shell MD [address] [facility] [place] [address] Social History Tobacco Use Types Packs/Day Years Used Date Smoking Tobacco: Never Assessed Sex and Gender Information Value Date Recorded Sex Assigned at Male 10/30/2021 8:44 PM CDT Legal Sex Male 8:44 PM CDT Gender Identity Male 10/30/2021 8:44 PM CDT Sexual Orientation Not on file documented as of this encounter Miscellaneous Notes * Cerner Conversion Note - Armond Shell MD - 01/21/2020 1:09 PM EDT Patient: HAYES MAYS Age: 69 Years Sex: Male : 1950 Admit Date 01/20/2020 08:50 Discharge Date 01/21/2020 11:51 Attending Physician: Dr. Armond Shell Discharge Diagnosis Expanding infrarenal abdominal aortic aneurysm, greater than 5.5 cm. COVID 19 HLD COPD Brief Medical History The patient is a 69-year-old male who has had a small infrarenal aortic aneurysm which has been monitored. This has demonstrated rapid expansion, now greater than 5.5 cm, and he has evidence of severe left renal artery stenosis. He has been discussed to proceed with left renal artery stenting as well as infrarenal aortic aneurysm repair. Operative Procedures 01/20/20 (Suleman; ASHLEIGH) 1. Right femoral percutaneous access, large-bore 14-Kazakh sheath. 2. Left femoral arterial exposure for endovascular deployment. 3. Infrarenal abdominal aortic aneurysm repair extending to iliac bifurcation, non-ruptured aorta. Hospital Course Mr. Mays is a 69-year-old malepatient who was admitted under the services of Dr. Armond Shell. After informed consent was given, the patient was taken to the operating room where heunderwent an endovascular repair of abdominal aortic aneurysm. [facility] procedure[facility] POD #1 he was hemodynamically stable and ready for discharge. His preop COVID came back positive. Pt was asymptomatic on room air. Stated he had COVID in October/November. After a stable hospital course the patient was ready for transfer back to home. Pain was controlled. Diet and activity were well tolerated. Primary Care Provider CARLOS CRAVEN MD-FAM Vital Signs T: 36.2 ??C TMIN: 36.2 ??C TMAX: 36.4 ??C HR: 83(Monitored) RR: 0 BP: 96/62 BP: 124/56(Line) SpO2: 92% Oxygen Settings (Last) Oxygen Therapy Mode: Room air (01/21/20 10:00:00) Oxygen Flow Rate: 2 Liter/Min (01/21/20 08:07:00) Physical Exam AAOx3. NAD. Sitting in bedside chair. at bedside. LEFT UE: art line d/c, good radial pulse RIGHT groin: Dermabond c/d/i with no hematoma. palpable femoral pulse LEFT groin: Dermabond c/d/i with mild ecchymosis, no hematoma, palpable femoral pulse BLE: warm, pink, well perfused audible signals Discharge Disposition Discharge to home Follow up appointment in 4 weeks Rx on chart for R[place] 7.5mg Light activity without heavy lifting [id number] Regular diet as tolerated Discharge Follow Up CARLOS CRAVEN MD-FAM - Within 5 to 7 days Discharge Medications (5) Active aspirin 81 mg oral tablet 1 Tab, Oral, Daily atorvastatin 80 mg oral tablet 80 mg = 1 Tab, Oral, At Bedtime Bevespi Aerosphere 9 mcg-4.8 mcg/inh inhalation aerosol 2 Puff, Inhalation, BID [place] 7.5 mg-325 mg oral tablet 1 Tab, PRN, Oral, Q4H Ventolin HFA 90 mcg/inh inhalation aerosol 2 Puff, PRN, Inhalation, Q6H Condition on Discharge Stable Patient Discharge Summary Orders Discharge Follow Up Instructions: F/u in [address] Shell with CTA EVAR series; our office will call with date and time. F/u with PCP in 2-3 days Activity: Discharge Activity: No heavy lifting over 10 lbs Diet: Discharge Diet: Resume usual diet as tolerated Wound/Incision Care Instructions: Keep operative site/wound clean and dry Showering/Bathing Instructions: May shower Driving Restriction: Do Not Drive documented in this encounter Plan of Treatment Upcoming Encounters Date Type Department Care Team (Late st Contact Info) Description 11/25/2024 1:15 PM EDT Office Visit [facility] Pulmonology - [address] [place] [address] Mark Love MD [address] [place] [address] documented as of this encounter Visit Diagnoses Not on filedocumented in this encounter Care Teams Director Mobile Media Solutions Relationship Specialty Start Date End Date Collette Renodn APRN PCP - General Emergency Medicine 11/21/23 documented as of this encounter
--- OUTSIDE RECORDS SUMMARY | 2024-11-11 10:27 | XMS_ITS | Encounter Summary ---
Author Organization [employer] ([place], [place], [place], [place]) Address [address] [place] [address] Care Team Providers Care Picture Copyist Name Role Phone Collette Rendon APRN Primary Care Provider [phone] Encounter Details Date Type Department Care Team (Late st Contact Info) Description 02/25/2020 Transcribed Document [facility] Radiology 1 [place] [address] Lisa Shell MD [address] [facility] [place] [address] Social History Tobacco Use Types Packs/Day Years Used Date Smoking Tobacco: Never Assessed Sex and Gender Information Value Date Recorded Sex Assigned at Male 10/30/2021 8:44 PM CDT Legal Sex Male 8:44 PM CDT Gender Identity Male 10/30/2021 8:44 PM CDT Sexual Orientation Not on file documented as of this encounter Miscellaneous Notes * Cerner Conversion Note - Lisa Shell MD - 02/25/2020 2:56 PM EDT Patient: HAYES MAYS Age: 69 Years Sex: Male : 1950 Admit Date 02/24/2020 06:34 Discharge Date 02/25/2020 Attending Physician: Dr. 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 HLD COPD Brief Medical History The patient is a 69-year-old male, who has undergone an endovascular repair of abdominal aortic aneurysm. On his postoperative evaluation CT scan demonstrated a left external iliac artery pseudoaneurysm. He also has posterior lying heavily calcific plaque within the common femoral artery. He has been offered repair of the pseudoaneurysm with endarterectomy of the femoral artery. Operative Procedures 02/24/2020 (Suleman; ASHLEIGH) - Repair of left external iliac pseudoaneurysm with femoral endarterectomy and bovine patch angioplasty. Hospital Course Mr. Mays is a 69-year-old malepatient who was admitted under the services of Dr. Lisa Shell. 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 [facility] procedure[facility] POD #1, he was doing well without complaints. After a stable hospital course the patient was ready for transfer back to home. Pain was controlled. Diet and activity were well tolerated. Primary Care Provider CARLOS CRAVEN MD-FAM Vital Signs T: 36.8 ??C T: 36.8 ??C TMIN: 36.5 ??C TMAX: 37.3 ??C HR: 74(Monitored) RR: 15 BP: 95/54 BP: 113/55(Line) SpO2: 90% Oxygen Settings (Last) Oxygen Therapy Mode: Nasal cannula (02/25/20 08:19:00) Oxygen Flow Rate: 1 Liter/Min (02/25/20 08:19:00) Physical Exam AAOx3. NAD. Sitting up in bedside chair. at bedside Resp: on 1L O2 by NC; d/c during interview O2 sat stable LEFT groin: incision intact with dermabond, no hematoma, erythema, or drainage LEFT LE: warm, pink, no edema, audible DP and PT signal Discharge Disposition Discharge to home Follow up appointment in 2 weeks Rx on chart for Pierpont 7.5mg Light activity without heavy lifting [id number] Regular diet as tolerated Discharge Follow Up CARLOS CRAVEN MD-FAM - Within 5 to 7 days LISA SHELL - Within 2 weeks Discharge Medications (5) Active aspirin 81 mg oral tablet 1 Tab, Oral, Daily atorvastatin 80 mg oral tablet 80 mg = 1 Tab, Oral, At Bedtime Bevespi Aerosphere 9 mcg-4.8 mcg/inh inhalation aerosol 2 Puff, Inhalation, BID [place]pont 7.5 mg-325 mg oral tablet 1 Tab, PRN, Oral, Q4H Ventolin HFA 90 mcg/inh inhalation aerosol 2 Puff, PRN, Inhalation, Q6H Code Status Start: 02/24/20 12:02:00 EDT, Full Code, Continuous Order Condition on Discharge Stable Patient Discharge Summary Orders Discharge Follow Up Instructions: Follow up with Dr. Shell in 2 weeks with RICARDO Activity: Discharge Activity: No heavy lifting over 10 lbs Diet: Discharge Diet: Resume usual diet as tolerated Wound/Incision Care Instructions: Keep operative site/wound clean and dry Showering/Bathing Instructions: May shower Driving Restriction: No driving until 24 hours after taking pain medication documented in this encounter Plan of Treatment Upcoming Encounters Date Type Department Care Team (Late st Contact Info) Description 11/25/2024 1:15 PM EDT Office Visit [facility] Pulmonology - [address] [place] [address] Mark Love MD [address] [place] [address] documented as of this encounter Visit Diagnoses Not on filedocumented in this encounter Care Teams Picture Copyist Relationship Specialty Start Date End Date Collette Rendon APRN PCP - General Emergency Medicine 11/21/23 documented as of this encounter
--- OUTSIDE RECORDS SUMMARY | 2024-11-11 10:27 | XMS_ITS | Encounter Summary ---
Author Organization [employer] ([place], [place], [place], [place]) Address [address] [place] [address] Care Team Providers Care Tab Machine Operator Name Role Phone Collette Rendon APRN Primary Care Provider [phone] Encounter Details Date Type Department Care Team (Late st Contact Info) Description 01/20/2020 Transcribed Document [facility] [place] [address] [place] [address] ProviderDulce Maria MD [address] [place] [address] Social History Tobacco Use Types Packs/Day Years Used Date Smoking Tobacco: Never Assessed Sex and Gender Information Value Date Recorded Sex Assigned at Male 10/30/2021 8:44 PM CDT Legal Sex Male 8:44 PM CDT Gender Identity Male 10/30/2021 8:44 PM CDT Sexual Orientation Not on file documented as of this encounter Miscellaneous Notes * Cerner Conversion Note - Historical ProviderMD - 01/20/2020 5:00 PM CDT Chart Check - Review Order Profile Entered On: 01/20/2020 17:40 EDT Performed On: 01/20/2020 17:00 EDT by JAVY WILLIMASON RN Chart Check Powerplans Initiated/Discontinued as Appropriate : Yes All Active Orders Reviewed : Yes JAVY WILLIAMSON RN - 01/20/2020 17:40 EDT Electronically signed by [facility] Conversion Screening Specialist Cerner at 08/21/2022 12:06 PM CDT documented in this encounter Plan of Treatment Upcoming Encounters Date Type Department Care Team (Late st Contact Info) Description 11/25/2024 1:15 PM EDT Office Visit [facility] Pulmonology - [address] [place] [address] Mark Love MD [address] [place] [address] documented as of this encounter Visit Diagnoses Not on filedocumented in this encounter Care Teams Tab Machine Operator Relationship Specialty Start Date End Date Collette Rendon, LEIDY PCP - General Emergency Medicine 11/21/23 documented as of this encounter
--- OUTSIDE RECORDS SUMMARY | 2024-11-11 10:27 | XMS_ITS | Encounter Summary ---
Author Organization [employer] ([place], [place], [place], [place]) Address [address] [place] [address] Care Team Providers Care Wholesale Agronomist Name Role Phone Collette Rendon APRN Primary Care Provider [phone] Encounter Details Date Type Department Care Team (Late st Contact Info) Description 02/25/2020 Transcribed Document [facility] Medicine [facility] [place] [address] ProviderDulce Maria MD [address] [place] [id number] Social History Tobacco Use Types Packs/Day Years Used Date Smoking Tobacco: Never Assessed Sex and Gender Information Value Date Recorded Sex Assigned at Male 10/30/2021 8:44 PM CDT Legal Sex Male 8:44 PM CDT Gender Identity Male 10/30/2021 8:44 PM CDT Sexual Orientation Not on file documented as of this encounter Miscellaneous Notes * Cerner Conversion Note - Dulce Maria Duncan MD - 02/25/2020 1:53 PM CDT Nursing Discharge Summary Entered On: 02/25/2020 13:54 EDT Performed On: 02/25/2020 13:53 EDT by Iman Andino RN Discharge Documentation Patient Disposition, General : Discharge Discharge To : Home with ambulatory/outpatient follow-up Mode Of Departure, General Discharge : Wheelchair Accompanied By, Discharge : Care provider, Spouse IV Discontinued : Yes Personal Belongings With Patient : Yes Pt's Own Supply of Medications Returned : No patient supply of medications to return Prescriptions Given to Patient : No Medications Given to Patient : No Teaching Method : Demonstration, Explanation, Printed materials Teaching Evaluation : Verbalizes understanding Iman Andino RN - 02/25/2020 13:53 EDT documented in this encounter Plan of Treatment Upcoming Encounters Date Type Department Care Team (Late st Contact Info) Description 11/25/2024 1:15 PM EDT Office Visit [facility] Pulmonology - [address] [place] [id number] Mark Love MD [address] [place] [address] documented as of this encounter Visit Diagnoses Not on filedocumented in this encounter Care Teams Wholesale Agronomist Relationship Specialty Start Date End Date Collette Rendon APRN PCP - General Emergency Medicine 11/21/23 documented as of this encounter
--- OUTSIDE RECORDS SUMMARY | 2024-11-11 10:27 | XMS_ITS | Encounter Summary ---
Author Organization [employer] ([place], [place], [place], [place]) Address [address] [place] [address] Care Team Providers Care Radio Script Writer Name Role Phone CarolyngeraldoCollette lowery APRN Primary Care Provider [phone] Encounter Details Date Type Department Care Team (Late st Contact Info) Description 01/20/2020 Transcribed Document [facility] Family Medicine [address] [place] [address] ProviderDulce Maria MD [address] [place] [id number] Social History Tobacco Use Types Packs/Day Years Used Date Smoking Tobacco: Never Assessed Sex and Gender Information Value Date Recorded Sex Assigned at Male 10/30/2021 8:44 PM CDT Legal Sex Male 8:44 PM CDT Gender Identity Male 10/30/2021 8:44 PM CDT Sexual Orientation Not on file documented as of this encounter Miscellaneous Notes * [employer]ner Conversion Note - Historical ProviderMD - 01/20/2020 9:38 AM CDT PAT Adult Entered On: 01/20/2020 9:44 EDT Performed On: 01/20/2020 9:38 EDT by LORENA ORO RN Height and Weight, Clinical Dosing Height Source : Measured Height Entry Format : [place] Height, Feet : 5 ft(Converted to: 152 cm, 60 Inch) Height, Inches : 6 Inch(Converted to: 0 ft 6 Inch, 15.24 cm) Clinical Height : 167.64 cm Weight Source : Standing scale Weight Entry Format : [place] Clinical Dosing Weight : 62.68 kg Weight, Pounds : 137.9 lb Body Surface Area (BSA) : 1.71 m2 Body Mass Index : 22.3 kg/m2 [place] Body Weight : 63 kg LORENA ORO RN - 01/20/2020 9:38 EDT Health Histories Smoking Status : Former smoker, quit more than 30 days ago Smokeless Tobacco Status : Never Implant/Device Type, Box Liner and Model : loop cardiac recorder; cardiac repair of foramen ovale LORENA ORO RN - 01/20/2020 9:38 EDT Social History (As Of: 01/20/2020 09:44:41 EDT) Tobacco: Former smoker, quit more than [...] 01/20/2020 09:41:57 EDT by LORENA ORO RN) Infectious Disease History Has the patient [...] to recall specifics Tuberculosis Symptoms : None LORENA ORO RN - 01/20/2020 9:38 EDT COVID19 PreProcedure Screening Is this an Emergent or Add on Procedure? : No Date of COVID-19 test known? : Yes Date of COVID-19 Test : 01/18/2020 EDT Has patient been isolated since the test : No Exposed to COVID19 symptoms since test? : Yes LORENA ORO RN - 01/20/2020 9:38 EDT Anesthesia/Transfusion History Family History of Anesthesia Reaction : No prior transfusion(s) Transfusion History : Prior anesthesia without reaction Family History of Anesthesia Reaction : None LORENA ORO RN - 01/20/2020 9:38 EDT Functional Assessment Functional ADL Evaluation Index EBN Bathing : Independent (2) Dressing : Independent (2) Toileting : Independent (2) Transferring Bed or Chair : Independent (2) Continence : Independent (2) Feeding : Independent (2) LORENA ORO RN - 01/20/2020 9:38 EDT ADL Index Score : 12 LORENA ORO RN - 01/20/2020 9:38 EDT Advance Directive Patient has Advance Directive *Q : Yes, Advance Directive not with the patient Advance Directive Type : Living will LORENA ORO RN - 01/20/2020 9:38 EDT [place] Suicide Severity Rating Scale (C-SSRS) CSSRS Past Month Wish to be : No CSSRS Past Month Suicidal Thoughts : No CSSRS Lifetime Suicide Behavior : No Suicide Severity Rating Score : 0 Suicide Severity Rating : No Additional Care Required at this time LORENA ORO RN - 01/20/2020 9:45 EDT Psychosocial History Do You Have a History of the Following? : Patient denies history Currently in Unsafe Situation : No LORENA ORO RN - 01/20/2020 9:45 EDT General Info Preferred Name : [place] Arrived From : Home Mode of Arrival on Unit : Ambulatory Legal Guardian : Unaccompanied Chief Complaint : AAA found on CT scan for lung to monitor nodule Primary Language : Chilean Powder Operator Needed : No LORENA ORO RN - 01/20/2020 9:45 EDT Support Person/Pt Rep Contact Information : Dalton Leandro [phone] Want Family/Rep/Phys Notified of Admit : No Emergency Contact #1 : Dalton Reeves Emergency Contact #1 Emergency Contact #1 Relationship : Emergency Contact #2 : none Emergency Contact #2 Phone Number : none Emergency Contact #2 Relationship : none LORENA ORO RN - 01/20/2020 9:38 EDT Communication Barrier : Other: difficulty w/ word finding post CVA LORENA ORO RN - 01/20/2020 9:45 EDT Momo Scale Momo Sensory Perception : No impairment Momo Moisture : Rarely moist Momo Activity : Walks frequently Momo Mobility : No limitation Momo Nutrition : Excellent Momo Friction and Shear : No apparent problem Momo Score : 23 LORENA ORO RN - 01/20/2020 9:45 EDT Sleep Apnea Risk Assmt Hx of [...] Sleep Apnea Risk Level Score : 2 LORENA ORO RN - 01/20/2020 9:45 EDT Electronically signed by [facility] [employer]version [employer] Purchasing Agent Cerner at 08/21/2022 11:51 AM CDT documented in this encounter Plan of Treatment Upcoming Encounters Date Type Department Care Team (Late st Contact Info) Description 11/25/2024 1:15 PM EDT Office Visit [facility] Pulmonology - [address] [place] [phone] Mark Love MD [address] [place] [address] documented as of this encounter Visit Diagnoses Not on filedocumented in this encounter Care Teams Radio Script Writer Relationship Specialty Start Date End Date Collette Rendon APRN PCP - General Emergency Medicine 11/21/23 documented as of this encounter
--- OUTSIDE RECORDS SUMMARY | 2024-11-11 10:27 | XMS_ITS | Encounter Summary ---
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 Role Phone Collette Rendon APRN Primary Care Provider [phone] Encounter Details Date Type Department Care Team (Late st Contact Info) Description 01/21/2020 Transcribed Document [facility] [place] [facility] [place] [address] ProviderDulce Maria MD [address] [place] [id number] Social History Tobacco Use Types Packs/Day Years Used Date Smoking Tobacco: Never Assessed Sex and Gender Information Value Date Recorded Sex Assigned at Male 10/30/2021 8:44 PM CDT Legal Sex Male 8:44 PM CDT Gender Identity Male 10/30/2021 8:44 PM CDT Sexual Orientation Not on file documented as of this encounter Miscellaneous Notes * Cerner Conversion Note - Dulce Maria ProviderMD - 01/21/2020 10:19 AM CDT [facility] [place] [place] [address] HAYES MAYS :1950 Visit Time:01/20/2020 Your Visit Summary Your Care Team Admitting Physician - LISA WOOD MD-SUR Attending Physician - LISA WOOD MD-SUR Primary Care Physician - CARLOS CRAVEN MD-FAM Referring Physician - CARLOS CRAVEN MD-FAM Your Diagnosis 2019-nCoV acute respiratory disease AAA (abdominal aortic aneurysm) without rupture, Abdominal aortic aneurysm, without rupture, Abdominal aortic aneurysm, without rupture Atherosclerosis of renal artery Discharge Vitals Heart Rate (Monitored) 76 Respiratory Rate 21 Blood Pressure 117/65 Blood Pressure 124/56(Line) What to do next Instructions From Your Care Team Discharge Follow Up Instructions: F/u in [address] Wood with CTA AAA series; our office will call with date and time. F/u with PCP in 2-3 days Activity: Discharge Activity: No heavy lifting over 10 lbs Diet: Discharge Diet: Resume usual diet as tolerated Wound/Incision Care Instructions: Keep operative site/wound clean and dry Showering/Bathing Instructions: May shower Driving Restriction: Do Not Drive Follow-Up Appointments Follow Up with CARLOS CRAVEN MD-[facility] When Within 5 to 7 days Where: [place] [address]- Medications What How Much When Instructions Next Dose acetaminophen-hydrocodone (Wolbach 7.5 mg-325 mg oral tablet) 1 Tablet(s) Oral Every 4 Hours as needed for as needed for pain albuterol (Ventolin HFA 90 mcg/ inh inhalation aerosol) 2 Puff(s) Inhalation Every 6 Hours as needed for for wheezing formoterol-glycopyrrolate (Bevespi Aerosphere 9 mcg-4.8 mcg/ inh inhalation aerosol) 2 Puff(s) Inhalation Two Times A Day aspirin (aspirin 81 mg oral tablet) 1 Tablet(s) Oral Every Day atorvastatin (atorvastatin 80 mg oral tablet) 1 Tablet(s) Oral At Bedtime Take your medications faithfully. Do NOT skip medication. Do NOT stop taking medications without the direction of a physician. Carry a list of your medications with you at all times, and take this medication list with you to your first follow up visit. Report any side effects. Avoid herbal remedies unless discussed with your physician. As part of your treatment plan, your physician may have prescribed a limited course of a controlled substance. This medication may be given to help people with moderate or severe pain or for other medical conditions, but there are risks involved with treatment. Common side effects may include nausea, constipation, drowsiness, sweating, itching, dry mouth, and rash. More serious side effects may include cognitive and motor impairment, like problems with thinking, concentrating, alertness, and movement (e.g. slowed reflexes), and driving and operating heavy machinery can be dangerous. It is important for you to talk to your physician if you have these side effects or questions. These controlled substances can produce physical dependence and be habit-forming if taken for an extended period of time, which means that the body has gotten used to them and may experience withdrawal symptoms if they are abruptly stopped. Withdrawal symptoms can include runny nose, sweating, goose bumps, diarrhea, abdominal cramping, rapid heartbeat, difficulty sleeping, and nervousness. Please dispose of unused and medications per your retail pharmacy guidance. Allergies No Known Medication Allergies Immunizations This Visit influenza virus vaccine, inactivated 01/21/2020 pneumococcal 13-valent vaccine 01/21/2020 Stroke/TIA Instructions Stroke/TIA Signs/Symptoms to Report Immediately: Sudden onset difficulty speaking, Sudden onset difficulty understanding speech, Sudden onset change in vision, Sudden onset weakness particulary on one side of the body, Sudden onset numbness/tingling, Sudden severe headache, Sudden dizziness or trouble with gait, Call : EMS activation is crucial Mutually Agreed Upon Goals My LDL Level: My LDL Level: Education Materials What you need to know about coronavirus disease 2019 (COVID-19) Missing Image - the embedded image is not supported https://www.cdc.gov/coronavirus/2019-ncov/ HYPERLINK https://www.cdc.gov/coronavirus/2019-ncov/cases-in-us.html cases-in-us.html. How does COVID-19 spread? The virus that causes COVID-19 probably emerged from an animal source, but now it seems to be spreading from person to person. It???s important to note that lvlvoy-op-nmdbhw spread can happen on a continuum. Some diseases are highly contagious (like measles), while other diseases are less so. At this time, it???s unclear how easily or sustainably the virus that causes COVID-19 is spreading between people. Learn what is known about the spread of newly emerged coronaviruses at HYPERLINK https://www.cdc.gov/coronavirus/2019-ncov/about/transmission.html https://www.cdc.gov/coronavirus/ 2019-ncov/about/ HYPERLINK https://www.cdc.gov/coronavirus/2019-ncov/about/transmission.html transmission.html. What are the symptoms of COVID-19? Patients with COVID-19 have had mild to severe respiratory illness with symptoms of fever cough shortness of breath What are severe complications from this virus? Many patients have pneumonia in both lungs. How can I help protect myself? The best way to prevent infection is to avoid being exposed to the virus that causes COVID-19. There are simple everyday preventive actions to help prevent the spread of respiratory viruses. These include Avoid close contact with people who are sick. Avoid touching your eyes, nose, and mouth with unwashed hands. Wash your hands often with soap and water for at least 20 seconds. Use an alcohol-based hand tower hand that contains at least 60% alcohol if soap and water are not available. If you are sick, to keep from spreading respiratory illness to others, you should Stay home when you are sick. Cover your cough or sneeze with a tissue, then throw the tissue in the trash. Clean and disinfect frequently touched objects and surfaces. What should I do if I recently traveled outside of the [place]? If you were outside the [place] within the past 14 days and feel sick with fever, cough, or difficulty breathing, you should seek medical care. Call the office of your health care provider before you go, and tell them about your travel and your symptoms. They will give you instructions on how to get care without exposing other people to your illness. While sick, avoid contact with people, don???t go out and delay any travel to reduce the possibility of spreading illness to others. Is there a vaccine? There is currently no vaccine to protect against COVID-19. The best way to prevent infection is to avoid being exposed to the virus that causes COVID-19. Is there a treatment? There is no specific antiviral treatment for COVID-19. People with COVID-19 can seek medical care to help relieve symptoms. For more information: HYPERLINK http://www.cdc.gov/COVID19 www.cdc.gov/COVID19 DISCLAIMER: COVID-19 information is rapidly changing and documents will be updated accordingly. July 09, 2019 What to do if you are sick with coronavirus disease 2019 (COVID-19) If you are sick with COVID-19 or suspect you are infected with the virus that causes COVID-19, follow the steps below to help prevent the disease from spreading to people in your home and community. Missing Image - the embedded image is not supported COVID-19 and Animals for more information. Call ahead before visiting your doctor If you have a medical appointment, call the healthcare provider and tell them that you have or may have COVID-19. This will help the healthcare provider???s office take steps to keep other people from getting infected or exposed. Wear a facemask You should wear a facemask when you are around other people (e.g., sharing a room or vehicle) or pets and before you enter a healthcare provider???s office. If you are not able to wear a facemask (for example, because it causes trouble breathing), then people who live with you should not stay in the same room with you, or they should wear a facemask if they enter your room. Cover your coughs and sneezes Cover your mouth and nose with a tissue when you cough or sneeze. Throw used tissues in a lined trash can; immediately wash your hands with soap and water for at least 20 seconds or clean your hands with an alcohol-based hand tower hand that contains at least 60 to 95% alcohol, covering all surfaces of your hands and rubbing them together until they feel dry. Soap and water should be used preferentially if hands are visibly dirty. Avoid sharing personal household items You should not share dishes, drinking glasses, cups, eating utensils, towels, or bedding with other people or pets in your home. After using these items, they should be washed thoroughly with soap and water. Clean your hands often Wash your hands often with soap and water for at least 20 seconds. If soap and water are not available, clean your hands with an alcohol-based hand tower hand that contains at least 60% alcohol, covering all surfaces of your hands and rubbing them together until they feel dry. Soap and water should be used preferentially if hands are visibly dirty. Avoid touching your eyes, nose, and mouth with unwashed hands. Clean all ???high-touch?? surfaces every day High touch surfaces include counters, tabletops, doorknobs, bathroom fixtures, toilets, phones, keyboards, tablets, and bedside tables. Also, clean any surfaces that may have blood, stool, or body fluids on them. Use a household cleaning spray or wipe, according to the label instructions. Labels contain instructions for safe and effective use of the cleaning product including precautions you should take when applying the product, such as wearing gloves and making sure you have good ventilation during use of the product. Monitor your symptoms Seek prompt medical attention if your illness is worsening (e.g., difficulty breathing). Before seeking care, call your healthcare provider and tell them that you have, or are being evaluated for, COVID-19. Put on a facemask before you enter the facility. These steps will help the healthcare provider???s office to keep other people in the office or waiting room from getting infected or exposed. Ask your healthcare provider to call the local or state health department. Persons who are placed under active monitoring or facilitated self-monitoring should follow instructions provided by their local health department or occupational health professionals, as appropriate. If you have a medical emergency and need to call 911, notify the dispatch personnel that you have, or are being evaluated for COVID-19. If possible, put on a facemask before emergency medical services arrive. Discontinuing home isolation Patients with confirmed COVID-19 should remain under home isolation precautions until the risk of secondary transmission to others is thought to be low. The decision to discontinue home isolation precautions should be made on a cslk-vf-yfxy basis, in consultation with healthcare providers and state and [facility] health departments. For more information: HYPERLINK http://www.cdc.gov/COVID19 www.cdc.gov/COVID19 DISCLAIMER: COVID-19 information is rapidly changing and documents will be updated accordingly. July 09, 2019 Abdominal Aortic Aneurysm Open Repair, Care After This sheet gives you information about how to care for yourself after your procedure. Your health care provider may also give you more specific instructions. If you have problems or questions, contact your health care provider. What can I expect after the procedure? After the procedure, it is common to have: ??? Some pain at the incision site. ??? Tiredness (fatigue). It can take up to 3 months before you are ready to start all of your normal activities. Follow these instructions at home: Activity ??? Get plenty of rest. ??? Follow instructions from your health care provider about how much you should move around and how far you should go when you take short walks. Start walking farther when your health care provider says it is okay. ??? Avoid activities that require a lot of energy for 6???8 weeks or for as long as told by your health care provider. ??? Do not lift anything that is heavier than 10 lb (4.5 kg) until your health care provider says it is safe. ??? Return to your normal activities as told by your health care provider. Ask your health care provider what activities are safe for you. ??? Do not drive until your health care provider says it is okay. Incision care ??? Follow instructions from your health care provider about how to take care of your incision. Make sure you: ? Wash your hands with soap and water before you change your bandage (dressing). If soap and water are not available, use hand tower hand. ? Change your dressing as told by your health care provider. ? Leave stitches (sutures), skin glue, or adhesive strips in place. These skin closures may need to stay in place for 2 weeks or longer. If adhesive strip edges start to loosen and curl up, you may trim the loose edges. Do not remove adhesive strips completely unless your health care provider tells you to do that. ??? Do not take baths, swim, or use a hot tub until your health care provider approves. Ask your health care provider if you can take showers. You may only be allowed to take sponge baths for bathing. ??? Check your incision area every day for signs of infection. Check for: ? More redness, swelling, or pain. ? More fluid or blood. ? Warmth. ? Pus or a bad smell. Lifestyle ??? Do not use any products that contain nicotine or tobacco, such as cigarettes and e-cigarettes. If you need help quitting, ask your health care provider. ??? Make any other lifestyle changes that your health care provider suggests. These may include: ? Keeping your blood pressure under control. ? Finding ways to lower stress. ? Eating healthy foods that are good for your heart, such as vegetables, fruits, and whole grains that add fiber to your diet. ? Getting regular exercise. General instructions ??? Take igdc-byx-whiekad and prescription medicines only as told by your health care provider. ??? Drink enough fluid to keep your urine clear or pale yellow. ??? Keep all follow-up visits as told by your health care provider. This is important. Contact a health care provider if: ??? You have more redness, swelling, or pain around your incision. ??? You have more fluid or blood coming from your incision. ??? Your incision feels warm to the touch. ??? You have pus or a bad smell coming from your incision. ??? You have a fever. ??? You have chills. ??? You notice that the edges of the incision are not staying together after the stitches or carine have been taken out. ??? You have nausea or vomiting that does not go away. ??? You have a rash. Get help right away if: ??? You feel dizzy when standing or you faint. ??? You have trouble breathing. This information is not intended to replace advice given to you by your health care provider. Make sure you discuss any questions you have with your health care provider. Document Released: 11/08/2005 Document Revised: 04/03/2018 Document Reviewed: 07/15/2016 [employer] Patient Education ?? 2020 Smackages. Emergency Awareness and Preventative Care STROKE is an EMERGENCY Every Minute Counts Act FAST and Check for these signs: FACE Does the face look uneven? ARM Does one arm drift down? SPEECH Does their speech sound strange? TIME Call at any sign of stroke Stroke Risk Factors Atrial Fibrillation (irregular heartbeat) Diabetes Family history of stroke Heart Disease Heavy alcohol use High Blood Pressure High Cholesterol Physical inactivity and obesity Smoking Cigarette Smoking The facts are clear, cigarette smoking will shorten your life. Smoking can cause many illnesses along the way. As a healthcare provider, we recommend that you stop smoking. Assistance with quitting is available by contacting 2-891-YVTY-NOW. This is a free resource providing counseling, support, and referral. Or you may contact your personal physician. National Suicide Prevention Lifeline: The National Suicide Prevention Lifeline is a national network of local crisis centers that provides free and confidential emotional support to people in suicidal crisis or emotional distress 24 hours a day, 7 days a week. Don't Wait! Stop a Heart Attack Before it Starts What is a heart attack? A heart attack is damage or to a part of the heart from severely decreased or lack of blood flow to the heart. Over time, arteries can become narrow from the buildup of fat and cholesterol, which is called plaque. The plaque can rupture causing a blood clot to form. When the blood clot forms, the artery can become severely narrowed or completely blocked, causing a heart attack. Heart attack is the leading cause of in the [place]. 85% of muscle damage occurs within the first 2 hours. Delay in the recognition of heart attack symptoms increases the chances of . Know the early symptoms of a heart attack: Nausea Feeling of fullness in chest Jaw Pain Pain that travels down one or both arms Fatigue/being tired Anxiety Back Pain Chest pressure, squeezing, or discomfort Shortness of breath Sweating, or a cold sweat Feeling of impending doom There are unusual signs of a heart attack, too! Women, the elderly, and diabetics may present with atypical symptoms: Fainting/dizziness Weakness Confusion Risk Factors for a Heart Attack Some heart disease risk factors, such as age and family history, cannot be changed. Others, like smoking and lack of exercise, can be changed. Smoking High Cholesterol High Blood Pressure Family History Obesity Age Gender (Males are at higher risk) Lack of Exercise Diabetes Diet Stress Excessive Alcohol Intake If you or someone you know is experiencing the signs and symptoms of a heart attack, DON???T DELAY. Call immediately and seek help. If someone collapses, perform CPR! Do not attempt to drive if you are having symptoms of heart attack. Hands-Only CPR Why Hands-Only CPR? Hands-Only CPR has been shown to be as effective as conventional CPR for cardiac arrests that occur outside of a hospital. Survival depends on immediately receiving CPR from someone nearby. How do you perform Hands-Only CPR? There are two easy steps: Call if you see a teen or adult collapse Push hard and fast in the center of the chest at a beat of 100 beats per minute. Save a life! 4 WAYS TO GET AHEAD OF SEPSIS SEPSIS is a MEDICAL EMERGENCY. Time matters! Infections put you and your family at risk for a life-threatening condition called sepsis. Sepsis is the body's extreme response to an infection. It is life-threatening, and without timely treatment, sepsis can rapidly lead to tissue damage, organ failure, and . Sepsis happens when an infection you already have-in your skin, lungs, urinary tract or somewhere else-triggers a chain reaction throughout your body. 1 PREVENT INFECTIONS Take good care of chronic conditions. Talk to your doctor about getting the recommended vaccines. 2 PRACTICE GOOD HYGIENE Wash your hands frequently. Keep cuts or open sores clean and covered until they are healed. 3 KNOW THE SYMPTOMS Confusion or disorientation Shortness of breath High heart rate Fever, shivering, or feeling very cold Extreme pain or discomfort Clammy or sweaty skin 4 ACT FAST Get medical care IMMEDIATELY if you suspect sepsis or if you have an infection that is not getting better or is getting worse. To learn more about sepsis and how to prevent infections, visit www.cdc.gov/sepsis. Test Results Laboratory or Other Results This Visit (last charted value for your 01/20/2020 visit) Hematology 01/21/2020 4:31 AM WBC: 12.1 K/uL -- Normal range between ( 3.6 and 9.5 ) RBC: 3.92 Million/uL -- Normal range between ( 4.20 and 5.70 ) Hct: 34.6 % -- Normal range between ( 40.1 and 51.0 ) Hgb: 11.5 g/dL -- Normal range between ( 13.5 and 17.3 ) Platelet Count: 189 K/uL -- Normal range between ( 163 and 369 ) MCH: 29.3 pg -- Normal range between ( 25.6 and 32.2 ) MCHC: 33.2 Gram/dL -- Normal range between ( 32.2 and 36.5 ) MCV: 88.3 fL -- Normal range between ( 79.0 and 94.8 ) Slide Review: No RDW: 13.6 % -- Normal range between ( 11.7 and 14.9 ) MPV: 9.7 fL -- Normal range between ( 9.4 and 12.4 ) 01/20/2020 1:15 PM Eos %: 3.1 % -- Normal range between ( 0.0 and 7.0 ) [place] #: 0.57 K/uL -- Normal range between ( 0.16 and 1.00 ) Eos #: 0.24 x10(3)/uL -- Normal range between ( 0.00 and 0.80 ) [place] %: 7.5 % -- Normal range between ( 3.0 and 9.0 ) Baso %: 0.7 % -- Normal range between ( 0.0 and 1.5 ) Baso #: 0.05 x10(3)/uL -- Normal range between ( 0.00 and 0.20 ) Neut %: 68.2 % -- Normal range between ( 34.0 and 71.0 ) Neut #: 5.20 K/uL -- Normal range between ( 1.56 and 6.13 ) Lymph %: 20.1 % -- Normal range between ( 19.3 and 53.1 ) Lymph #: 1.53 x10(3)/uL -- Normal range between ( 1.00 and 3.90 ) IG#: 0.03 x10(3)/uL -- Normal range between ( 0.00 and 0.05 ) IG%: 0.40 % -- Normal range between ( 0.00 and 0.60 ) 01/20/2020 9:59 AM Hemoglobin POC: 15.3 Gram/dL -- Normal range between ( 12.0 and 17.0 ) Hematocrit POC: 45.0 % -- Normal range between ( 38.0 and 51.0 ) Microbiology 01/20/2020 11:57 PM Novel Coronavirus 2019: Positive Blood Bank 01/20/2020 10:09 AM ABO/Rh (ECHO): A POS Antibody Screen: Negative ABSC 01/20/2020 10:08 AM ABO/Rh Repeat: A POS General Chemistry 01/21/2020 4:31 AM Creatinine Level: 0.70 mg/dL -- Normal range between ( 0.70 and 1.30 ) Sodium Level: 138 mmol/L -- Normal range between ( 136 and 146 ) Potassium Level: 4.1 mmol/L -- Normal range between ( 3.5 and 5.1 ) Chloride Level: 106 mmol/L -- Normal range between ( 102 and 112 ) Carbon Dioxide Level: 27 mmol/L -- Normal range between ( 21 and 32 ) Anion Gap: 9 -- Normal range between ( 9 and 20 ) Bun/Creatinine: 22.9 -- Normal range between ( 8.0 and 20.0 ) Calcium Level: 8.2 mg/dL -- Normal range between ( 8.4 and 10.1 ) eGFR : >60 mL/min/1.73m2 eGFR NonAfrican: >60 mL/min/1.73m2 Glucose Level: 113 mg/dL -- Normal range between ( 74 and 106 ) Blood Urea Nitrogen: 16 mg/dL -- Normal range between ( 7 and 22 ) 01/20/2020 5:43 PM Glucose POC2: 106 mg/dL -- Normal range between ( 70 and 110 ) Device Comment 1: Device Comment 1 01/20/2020 10:09 AM Calcium Ionized: 1.21 mmol/L -- Normal range between ( 1.12 and 1.32 ) Magnesium Level: 2.2 mg/dL -- Normal range between ( 1.5 and 2.4 ) Phosphorus: 2.6 mg/dL -- Normal range between ( 2.5 and 4.9 ) 01/20/2020 9:59 AM Potassium POC: 4.4 mmol/L -- Normal range between ( 3.5 and 4.9 ) Creatinine POC: 0.7 mg/dL -- Normal range between ( 0.6 and 1.3 ) Glucose POC: 102 mg/dL -- Normal range between ( 70 and 105 ) Coagulation 01/20/2020 10:09 AM INR: 1.0 -- Normal range between ( 0.9 and 1.1 ) PT: 10.9 Second(s) -- Normal range between ( 9.6 and 12.0 ) Protein & Immunoglobulin Studies 01/20/2020 10:09 AM Prealbumin: 24.3 mg/dL -- Normal range between ( 20.0 and 40.0 ) Patient Name:JUAN HAYES D I have received and understand this information and was given the opportunity to ask questions. Patient/Recording Artist Name: Patient/Recording Artist Signature: Relationship to Patient: Clinician/Hospital Recording Artist Signature: Date: documented in this encounter Plan of Treatment Upcoming Encounters Date Type Department Care Team (Late st Contact Info) Description 11/25/2024 1:15 PM EDT Office Visit [facility] Pulmonology - [address] [place] [id number] Mark Love MD [address] [place] [address] documented as of this encounter Visit Diagnoses Not on filedocumented in this encounter Care Teams [employer] Relationship Specialty Start Date End Date Collette Rendon APRN PCP - General Emergency Medicine 11/21/23 documented as of this encounter
--- OUTSIDE RECORDS SUMMARY | 2024-11-11 10:27 | XMS_ITS | Encounter Summary ---
Author Organization [employer] ([place], [place], [place], [place]) Address [address] [place] [address] Care Team Providers Care Oil Pipe Inspector Helper Name Role Phone Collette Rendon APRN Primary Care Provider [phone] Encounter Details Date Type Department Care Team (Late st Contact Info) Description 01/20/2020 Transcribed Document [facility] – [place] Family Medicine [facility] [place] [address] ProviderDulce Maria MD [address] [place] [id number] Social History Tobacco Use Types Packs/Day [...] Historical ProviderMD - 01/20/2020 11:21 AM CDT [facility] Main OR IntraOp Summary Primary Physician: LISA WOOD MD-SUR Finalized Date/Time: 01/23/20 16:22:21 Pt. Name: HAYES AMRTINEZ.O.B./Sex: 1950 Male Med Rec #: [id number] Physician: LISA WOOD MD-SUR Financial #: [id number] Pt. Type: I Room/Bed: [facility]/1 Admit/Disch: 01/20/20 08:50:00 - 01/21/20 11:51:00 Institution: [facility] IntraOp Case Attendance Entry 1 Entry 2 Entry 3 Case Attendee LISA WOOD MD-ADDISON ASHER SWINFORD, ASHLEE, NA MD-ANS Role Performed Surgeon/Proceduralist, Anesthesiologist of HADOOP SOFTWARE ENGINEER/Nurse Seat Cover Installer First Record Time In 01/20/20 10:53:00 01/20/20 10:53:00 01/20/20 10:53:00 Time Out 01/20/20 12:30:00 01/20/20 12:30:00 01/20/20 12:30:00 Procedure Aortic Stent Placement Aortic Stent Placement Aortic Stent Placement Endovascular, Iliac Endovascular, Iliac Endovascular, Iliac Stent Placement Stent Placement Stent Placement Endovascular, Aortogram Endovascular, Aortogram Endovascular, Aortogram Abdominal with Runoff Abdominal with Runoff Abdominal with Runoff Other Attendee Superficial Wound Closed By: Last Modified By: Delfina Cook RN Napier, Elizabeth A, RN Napier, Elizabeth A, RN 01/20/20 12:30:30 01/20/20 12:30:17 01/20/20 12:30:17 Entry 4 Entry 5 Entry 6 Case Attendee OTHER, ATTENDEE #3 Delfina Cook RN RESULTAY, JOSEFINA, RN Role Performed Student Coal Trimmer Machine Operator, First Coal Trimmer Machine Operator, Second Time In 01/20/20 10:53:00 01/20/20 10:53:00 01/20/20 10:53:00 Time Out 01/20/20 12:30:00 01/20/20 12:30:00 01/20/20 12:30:00 Procedure Aortic Stent Placement Aortic Stent Placement Aortic Stent Placement Endovascular, Iliac Endovascular, Iliac Endovascular, Iliac Stent Placement Stent Placement Stent Placement Endovascular, Aortogram Endovascular, Aortogram Endovascular, Aortogram Abdominal with Runoff Abdominal with Runoff Abdominal with Runoff Other Attendee ROJAS Superficial Wound Closed By: Last Modified By: Delfina Cook RN Napier, Elizabeth A, RN Napier, Elizabeth A, RN 01/20/20 12:30:30 01/20/20 12:30:17 01/20/20 12:30:17 Entry 7 Entry 8 Entry 9 Case Attendee ZEYNEP BETANCOURT ST OTHER, ATTENDEE #2 OTHER, ATTENDEE #3 Role Performed Scrub, First Vendor Beamer Operator Time In 01/20/20 10:53:00 01/20/20 10:53:00 01/20/20 10:53:00 Time Out 01/20/20 12:30:00 01/20/20 12:30:00 01/20/20 12:30:00 Procedure Aortic Stent Placement Aortic Stent Placement Aortic Stent Placement Endovascular, Iliac Endovascular, Iliac Endovascular, Iliac Stent Placement Stent Placement Stent Placement Endovascular, Aortogram Endovascular, Aortogram Endovascular, Aortogram Abdominal with Runoff Abdominal with Runoff Abdominal with Runoff Other Attendee IMAN CLEMENTE Superficial Wound Closed By: Last Modified By: Delfina Cook RN Napier, Elizabeth A, RN Napier, Elizabeth A, RN 01/20/20 12:30:17 01/20/20 12:30:17 01/20/20 12:30:17 Entry 10 Entry 11 Case Attendee RACHEL WHITEHEAD, LEIDY, Gilmar Leigh, Surgical HADOOP SOFTWARE ENGINEER-ANS Women'S Swim Coach Role Performed HADOOP SOFTWARE ENGINEER/Nurse Seat Cover Installer Scrub, First Time In 01/20/20 11:33:00 01/20/20 12:00:00 Time Out 01/20/20 12:03:00 01/20/20 12:30:00 Procedure Aortic Stent Placement Aortic Stent Placement Endovascular, Iliac Endovascular, Iliac Stent Placement Stent Placement Endovascular, Aortogram Endovascular, Aortogram Abdominal with Runoff Abdominal with Runoff Other Attendee BREAK Superficial Wound Closed By: Last Modified By: Delfina Cook RN Napier, Elizabeth A, RN 01/20/20 12:30:17 01/20/20 12:30:17 [facility] IntraOp Case Attendance Audit 01/20/20 12:30:30 Blister Packing Machine Tender: EANAPIER Modifier: EANAPIER <+> 1 Procedure 2 <*> Procedure Aortic Stent Placement Endovascular, Iliac Stent Placement Endovascular, Aortogram Abdominal with Runoff 01/20/20 12:30:17 Blister Packing Machine Tender: [email or web address] Modifier: EANAPIER <+> 1 Time Out 2 <+> Time Out 2 <*> Procedure Aortic Stent Placement Endovascular, Iliac Stent Placement Endovascular, Aortogram Abdominal with Runoff 3 <+> Time Out 3 <*> Procedure Aortic Stent Placement Endovascular, Iliac Stent Placement Endovascular, Aortogram Abdominal with Runoff 4 <+> Time Out 4 <*> Procedure Aortic Stent Placement Endovascular, Iliac Stent Placement Endovascular, Aortogram Abdominal with Runoff 5 <+> Time Out 5 <*> Procedure Aortic Stent Placement Endovascular, Iliac Stent Placement Endovascular, Aortogram Abdominal with Runoff 6 <+> Time Out 6 <*> Procedure Aortic Stent Placement Endovascular, Iliac Stent Placement Endovascular, Aortogram Abdominal with Runoff 7 <+> Time Out 7 <*> Procedure Aortic Stent Placement Endovascular, Iliac Stent Placement Endovascular, Aortogram Abdominal with Runoff 8 <+> Time Out 8 <*> Procedure Aortic Stent Placement Endovascular, Iliac Stent Placement Endovascular, Aortogram Abdominal with Runoff 9 <+> Time Out 9 <*> Procedure Aortic Stent Placement Endovascular, Iliac Stent Placement Endovascular, Aortogram Abdominal with Runoff 10 <*> Procedure Aortic Stent Placement Endovascular, Iliac Stent Placement Endovascular, Aortogram Abdominal with Runoff 11 <+> Time Out 11 <*> Procedure Aortic Stent Placement Endovascular, Iliac Stent Placement Endovascular, Aortogram Abdominal with Runoff 01/20/20 12:04:22 Blister Packing Machine Tender: RESULTJO Modifier: RESULTJO <+> 10 Case Attendee <+> 10 Role Performed <+> 10 Time In <+> 10 Time Out <+> 10 Procedure <+> 11 Case Attendee <+> 11 Role Performed <+> 11 Time In <+> 11 Procedure <+> 11 Other Attendee 01/20/20 11:30:37 Blister Packing Machine Tender: EANAPIER Modifier: RESULTJO <+> 1 Time In 2 <+> Time In 2 <*> Procedure Aortic Stent Placement Endovascular, Iliac Stent Placement Endovascular, Aortogram Abdominal with Runoff 3 <+> Time In 3 <*> Procedure Aortic Stent Placement Endovascular, Iliac Stent Placement Endovascular, Aortogram Abdominal with Runoff 4 <+> Time In 4 <*> Procedure Aortic Stent Placement Endovascular, Iliac Stent Placement Endovascular, Aortogram Abdominal with Runoff 5 <+> Time In 5 <*> Procedure Aortic Stent Placement Endovascular, Iliac Stent Placement Endovascular, Aortogram Abdominal with Runoff 6 <+> Time In 6 <*> Procedure Aortic Stent Placement Endovascular, Iliac Stent Placement Endovascular, Aortogram Abdominal with Runoff 7 <+> Time In 7 <*> Procedure Aortic Stent Placement Endovascular, Iliac Stent Placement Endovascular, Aortogram Abdominal with Runoff 8 <+> Time In 8 <*> Procedure Aortic Stent Placement Endovascular, Iliac Stent Placement Endovascular, Aortogram Abdominal with Runoff 8 <*> Other Attendee Sharon CHIU 9 <+> Time In 9 <*> Procedure Aortic Stent Placement Endovascular, Iliac Stent Placement Endovascular, Aortogram Abdominal with Runoff [facility] IntraOp Case Times Entry 1 Patient In Room Time 01/20/20 10:53:00 Out Room Time 01/20/20 12:30:00 Anesthesia Start Time 01/20/20 10:53:00 Stop Time 01/20/20 12:30:00 Surgery / Procedure Times Start Time 01/20/20 11:21:00 Stop Time 01/20/20 12:18:00 Last Modified By: Delfina Cook RN 01/20/20 12:28:35 [facility] IntraOp Case Times Audit 01/20/20 12:28:35 Blister Packing Machine Tender: EANAPIER Modifier: EANAPIER <+> 1 Out Room Time <+> 1 Stop Time 01/20/20 12:18:28 Blister Packing Machine Tender: RESULTJO Modifier: EANAPIER <+> 1 Stop Time [facility] IntraOp Cautery Entry 1 ESU Identification Cautery Type Monopolar ESU ID Number [id number] ID Type Hospital Number Cautery Settings Cut Setting 30 Coag Setting 30 ESU Grounding Pad Ground Pad Type Adult Grounding Pad Site Left buttock Grounding Pad Delfina Cook RN Applied By Grounding Pad Site Intact, Warm, Dry Skin Condition Before Cautery Grounding Pad Site Unchanged Skin Condition After Cautery Last Modified By: HÉCTOR GARCIA RN 01/20/20 12:05:01 [facility] IntraOp Cautery Audit 01/20/20 12:05:01 Blister Packing Machine Tender: VALENTENAPIER Modifier: RESULTJO 1 <*> Ground Pad Type Reusable electrode pad 1 <*> Grounding Pad Site Posterior 1 <+> ID Number [facility] IntraOp Communication Entry 1 Entry 2 Communication To Family/Significant other Other Comment START CTVU CLOSING Communication By HÉCTOR GARCIA RN Napier, Elizabeth A, RN Date and Time 01/20/20 11:21:00 01/20/20 12:19:00 Last Modified By: HÉCTOR GARCIA RN Napier, Elizabeth A, RN 01/20/20 11:30:54 01/20/20 12:18:43 [facility] IntraOp Communication Audit 01/20/20 12:18:43 Blister Packing Machine Tender: RESULTJO Modifier: EASUZANNAPIBRIAN <+> 2 Communication By <+> 2 Date and Time <+> 2 Communication To <+> 2 Comment [facility] IntraOp Departure from OR Entry 1 Integumentary Assessment Integumentary WDL Assessment WDL Transfer/Handoff Transfer to Other Handoff Method Phone call Post-op Transport Stretcher/Gurney Via Patient Transport SOCORRO SANTIZO NA, Accompanied by ADDISON LUCAS MD-ANS, Delfina Cook diesel trailer mechanic/Handoff PT TRANSPORTED TO [facility], PT STABLE Last Modified By: Delfina Cook RN 01/20/20 10:34:19 [facility] IntraOp Dressing and Packing Entry 1 Type Dressing Location OPSITE Wound Dressing Item 4x4's, Skin Closure Glue Applied By LISA WOOD MD-SANIA Other Comments TEGADERM Last Modified By: Delfina Cook RN 01/20/20 10:32:14 [facility] IntraOp Fire Risk Assessment Entry 1 Fire Info Surgical Site or 0- No Incision Above the Xyphoid Open O2 Source 1- Yes (Mask or Cannula) Available Ignition 0- No (ESU, Laser, Light Source) Fire Risk 1 Assessment Score Fire Score Fire Risk Yes Assessment Complete Fire Risk Delfina Cook RN Assessment Verified By Fire Risk 01/20/20 10:53:00 Assessment Verified Date/Time Fire Risk Standard Fire Yes Safety Precautions Followed Last Modified By: HÉCTOR GARCIA RN 01/20/20 11:33:05 [facility] IntraOp Fire Risk Assessment Audit 01/20/20 11:33:05 Blister Packing Machine Tender: EFRAIN Modifier: RESULTJO <+> 1 Fire Risk Assessment Verified Date/Time [facility] IntraOp General Case Pressure Test Operator 1 Case Information OR OR 01 [facility] Case Level 1 Room Verified Yes Wound Class I - Clean Specialty SN Endovascular Anesthesia Type MAC ASA Class 3 Diagnosis Preop Diagnosis AAA Postop Same As Preop No Postop Diagnosis SEE MD NOTE Last Modified By: Delfina Cook RN 01/20/20 10:34:39 [facility] IntraOp Implant Log Entry 1 Entry 2 Entry 3 Type Implant (Synthetic) Implant (Synthetic) Implant (Synthetic) Implant Log Implant Type Tissue Implant Type Implant CLOSURE SYS PERCLOSE STENT GRFT EXCLUDER GRFT EXCLUDER Identification PROGL [id number] Description Implant Quantity 4 1 1 Implant Site OPSITE MAIN BODY AORTA RIGHT COMMON ILIAC Implant Identification Model Number Implant [id number] Identification Serial Number Implant [id number] Identification Lot Number Implant Syed Lab:Vasc Dev Wl [facility]no [facility]:Med Prdt Wl Menno & Assc:Med Prdt Identification Medical Supply Technician Name: Implant [id number] Identification Catalog Number Implant Size 31MM X 14.5MM X 15CM 16MM X 14.5 MM X 14CM Implant Has an Yes Yes Yes Expiration Date Implant Expiration 10/02/21 04/04/22 09/09/22 Date Wasted Radioactive Material Time Implanted Tissue Implant Continue for Tissue Implant Documentation Tissue Identification Number Graft Prep Per Medical Supply Technician Instructions: Tissue Preparation Method: Reconstitution Solution: Reconstitution Solution Lot Number Reconstitution Solution Expiration Date: Thawing Solution Thawing Solution Lot Number Thawing Solution Expiration Date Preparation Materials, Other Preparation Materials, Other Lot Number Preparation Materials, Other Expiration Date Tissue Prepared/Processed By Medical Supply Technician Paperwork Completed Implant Type Comment Last Modified By: HÉCTOR GARCIA RN RESULTAY, JOSEFINA, RN RESULTAY, JOSEFINA, RN 01/20/20 11:34:18 01/20/20 11:36:34 01/20/20 12:05:36 [facility] IntraOp Implant Log Audit 01/20/20 12:05:36 Blister Packing Machine Tender: RESULTJO Modifier: RESULTJO 3 <*> Implant Identification Description GRFT EXCLUDER [id number] <*> Implant Site RIGHT ILIAC 01/20/20 11:47:46 Blister Packing Machine Tender: RESULTJO Modifier: RESULTJO <+> 3 Implant Identification Description <+> 3 Implant Identification Serial Number <+> 3 Implant Identification Medical Supply Technician Name: <+> 3 Implant Size <+> 3 Implant Expiration Date <+> 3 Implant Site <+> 3 Implant Quantity <+> 3 Implant Identification Catalog Number <+> 3 Implant Has an Expiration Date <+> 3 Type 01/20/20 11:36:34 Blister Packing Machine Tender: RESULTJO Modifier: RESULTJO <+> 2 Implant Identification Description <+> 2 Implant Identification Serial Number <+> 2 Implant Identification Medical Supply Technician Name: <+> 2 Implant Size <+> 2 Implant Expiration Date <+> 2 Implant Site <+> 2 Implant Quantity <+> 2 Implant Identification Catalog Number <+> 2 Implant Has an Expiration Date <+> 2 Type [facility] IntraOp Intraoperative Assessment Entry 1 Handoff Method Bedside/Face to face, Online nursing summary Valid History / Yes Physical in Chart Preoperative Yes Checklist Reviewed/Evaluated Allergies Reviewed Yes Patient is Latex No Sensitive Isolation Droplet Precautions Noted Level of WDL Consciousness (WDL = Alert, Oriented to Person, Place, and Time) Skin Assessment No Verified Present Upon IVs Arrival to OR Last Modified By: Delfina Cook RN 01/20/20 10:36:34 [facility] IntraOp Intraoperative Equipment Entry 1 Type Monitoring Equipment Intraop Monitoring Electrocardiogram Three lead placement (ECG) Electrode Placement Blood Pressure Non-Invasive BP Device Source Blood Pressure Arm, right upper Location Pulse Oximeter Hand, left Probe Site Antiembolic Devices Scopes Photo/Video Documentation Last Modified By: Delfina Cook RN 01/20/20 10:34:07 [facility] IntraOp Medication Admin Entry 1 Entry 2 Entry 3 Medication/Irrigant COLETTE VISIPAQUE 320MG 150 lidocaine 1% 50ml vial COLETTE NACL 0.9PCT HPRN 200ML --[id number] - [id number] 1000U .5L --[id number] Combo Med List Time Administered Route of CONTRAST LOCAL IRRIGATION/FLUSH Administration Dose Dose 889 65 9731 Unit of Measure ml ml units Volume Administered By LISA WOOD MD-SUR ABEDI, NICK NIMA, MD-SUR ABEDI, NICK NIMA, MD-SUR Procedure Irrigation Irrigant Volume In Irrigant Volume Out Last Modified By: HÉCTOR GARCAI RN Napier, Elizabeth A, RN Napier, Elizabeth A, RN 01/20/20 12:15:46 01/20/20 10:33:06 01/20/20 10:33:06 Entry 4 Medication/Irrigant HEMOSTAT SURGICEL SNOW [id number] Combo Med List Time Administered Route of TOPICAL Administration Dose Dose 1000 Unit of Measure units Volume Administered By LISA WOOD MD-SUR Procedure Irrigation Irrigant Volume In Irrigant Volume Out Last Modified By: HÉCTOR GARCIA RN 01/20/20 10:50:26 [facility] IntraOp Medication Admin Audit 01/20/20 12:15:46 Blister Packing Machine Tender: RESULTJO Modifier: RESULTJO <+> 1 Dose 01/20/20 10:50:26 Blister Packing Machine Tender: EFRAIN Modifier: RESULTJO <+> 4 Medication/Irrigant <+> 4 Route of Administration <+> 4 Administered By <+> 4 Dose <+> 4 Unit of Measure [facility] IntraOp Patient Positioning Entry 1 Procedure Aortic Stent Placement Endovascular, Iliac Stent Placement Endovascular, Aortogram Abdominal with Runoff Body Position Supine Left Arm Position Tucked and padded at side Right Arm Position Tucked and padded at side Left Leg Position Uncrossed, parallel Right Leg Position Uncrossed, parallel Feet Uncrossed Yes Pressure Points Yes Checked Positioning Devices Head Rest, Safety Strap, Thighs, Pad, Arm, Pad, Heel Device Position UNP'S Positioned By Delfina Cook RN, LISA WOOD MD-SUR, HÉCTOR GARCIA RN, SOCORRO SANTIZO NA Position Verified Positioning Yes Verified by Anesthesia Positioning Yes Verified by Surgeon Last Modified By: Delfina Cook RN 01/20/20 10:33:39 [facility] IntraOp Sign In Entry 1 Patient, Site, Yes Procedure Identified Surgical Consent Yes Confirmed Relevant Surgical Yes Documents Available Surgical Site N/A Marked by person performing procedure Anesthesia Machine Yes Check Completed Medication Checks Yes Completed Allergies Yes Airway Difficult No Airway/Aspiration Risk Difficult Yes Airway/Aspiration Intervention Equipment Available Blood Loss Risk No Blood Loss Yes Intervention Equipment Prepared and Ready Blood Identifiers Yes Verified Per Policy Hypothermia Risk Yes Warming Measures Yes Taken Last Modified By: Delfina Cook RN 01/20/20 10:33:50 [facility] IntraOp Sign Out Entry 1 RN Confirmation Surgical Yes Procedure(s) Identified Instrument, Sponge N/A and Sharps Counts Correct/Documented Equipment Problems N/A Documented Specimen Labeled N/A Correctly Urinary Catheter N/A Documented in IView Daily Patient Yes Recovery Concerns Reviewed with Anesthesia Provider, Surgeon and RN Daily Patient Yes Management Concerns Reviewed with Anesthesia Provider, Surgeon and RN Safety Checklist Yes Elements Complete? RN Sign Out Delfina Cook RN Signature RN Sign Out 01/20/20 12:29:00 Signature Date/Time Plan of Care Outcome - Fire Risk OUTCOME STATEMENT: Goal met Patient is free from injury related to surgical fire Plan of Care Outcome - Pt Positioning OUTCOME STATEMENT: Goal met Absence of signs and symptoms of positioning injury. Plan of Care Outcome - Skin Prep OUTCOME STATEMENT: Goal met Intraoperative care is consistent with measures to prevent infection Plan of Care Outcome - Xray/Images OUTCOME STATEMENT: Goal met Absence of observable signs or symptoms of radiation injury Plan of Care Outcome - Counts OUTCOME STATEMENT: Goal met Absence of signs and symptoms of injury related to extraneous objects Last Modified By: Delfina Cook RN 01/20/20 12:28:46 [facility] IntraOp Sign Out Audit 01/20/20 12:28:46 Blister Packing Machine Tender: EFRAIN Modifier: EANAPIER <+> 1 RN Sign Out Signature Date/Time [facility] IntraOp Skin Prep Entry 1 Procedure Aortic Stent Placement Endovascular, Iliac Stent Placement Endovascular, Aortogram Abdominal with Runoff Prescribed N/A Pre-Surgical Prep Completed Prep Area NIPPLE LINE TO KNEES Intraop Prep Integumentary WDL Assessment WDL Prep Agents Chloraprep Prep by Delfina Cook RN Hair Removal Methods No hair removal performed Last Modified By: Delfina Cook RN 01/20/20 10:35:12 [facility] IntraOp Surgical Procedures Entry 1 Entry 2 Entry 3 Procedure Aortic Stent Placement Iliac Stent Placement Aortogram Abdominal Endovascular Endovascular with Runoff Modifiers Additional (EVAR, LT RENAL ARTERY Procedure STENT, RT ILIAC ARTERY Description STENT) AORTIC ANEURYSM REPAIR WITH CUTDOW. Primary Procedure Yes No No Primary Surgeon LISA WOOD MD-SUR ABEDI, NICK NIMA, MD-SUR ABEDI, NICK NIMA, MD-SUR Start 01/20/20 11:21:00 01/20/20 11:21:00 01/20/20 11:21:00 Stop 01/20/20 12:18:00 01/20/20 12:18:00 01/20/20 12:18:00 Physician States Cecum Reached Anesthesia Type MAC MAC MAC Specialty SN Endovascular SN Endovascular SN Endovascular Wound Class I - Clean I - Clean I - Clean Last Modified By: Delfina Cook RN Napier, Elizabeth A, RN Napier, Elizabeth A, RN 01/20/20 12:30:15 01/20/20 12:28:49 01/20/20 12:28:49 [facility] IntraOp Surgical Procedures Audit 01/20/20 12:30:15 Blister Packing Machine Tender: EFRAIN Modifier: EANAPIER 1 <*> Procedure Aortic Stent Placement Endovascular 1 <*> Specialty 1 <*> Additional Procedure Description (EVAR, LT RENAL ARTERY STENT, RT ILIAC ARTERY STENT) 01/20/20 12:28:49 Blister Packing Machine Tender: [email or web address] Modifier: EANAPIER <+> 1 Start <+> 1 Stop <+> 2 Start <+> 2 Stop <+> 3 Start <+> 3 Stop 01/20/20 10:42:24 Blister Packing Machine Tender: EANAPIER Modifier: EANAPIER 2 <*> Procedure Iliac Stent Placement Endovascular 2 <*> Specialty 3 <*> Procedure Aortogram Abdominal with Runoff 3 <*> Specialty [facility] IntraOp Temp Regulation Devices Entry 1 Temp Regulation Temperature Forced Air Warming Regulation Device device Temperature Upper body Regulation Site Temperature Device 43 C Setting Temperature DARLYN, SOCORRO, NA Regulation Device Applied by Last Modified By: Delfina Cook RN 01/20/20 10:35:29 [facility] IntraOP Time Out Entry 1 Procedure to be Aortic Stent Placement Performed Endovascular, Iliac Stent Placement Endovascular, Aortogram Abdominal with Runoff Time Out Time Out Pause Time 01/20/20 11:15:00 All activity Yes suspended (unless life threatening emergency) Team Verbally Correct patient Confirms Information identity, Correct side and site are marked, Consent form is present and accurate, Agreement on the procedure to be done, Correct patient position, Relevant images/results properly labeled/appropriately displayed, Confirm antibiotics have been administered, Confirm the skin prep has dried, Confirm prosthesis/implant/devic e is present, Performed in location of procedure after prepped/draped Antibiotic Yes Prophylaxis Administered Or In Progress Within the Last 60 Minutes Beta Jose Luis N/A Administered Venous Yes Thromboembolism Prophylaxis Required Anticipated Critical Events Surgeon Critical or unexpected steps, Anticipated blood loss, Special equipment need, Special instrumentation need Anesthesia Provider Patient specific concerns Nursing Assures Sterility of instruments, Implant Availability Essential Imaging Yes Labeled and Displayed Last Modified By: HÉCTOR GARCIA RN 01/20/20 11:29:41 [facility] IntraOp X-Ray and Images Entry 1 X-Ray/Imaging Type Fluoroscopy Fluoroscopy Type C-Arm Exposure Time 3. 9 MINUTES Last Modified By: HÉCTOR GARCIA RN 01/20/20 12:14:57 Case Comments <None> Finalized By: TASIA GILBERT Document Signatures Signed By: Delfina Cook RN 01/20/20 12:30 LORENA ORO RN 01/20/20 16:05 TASIA GILBERT 01/23/20 16:22 Unfinalized History Date/Time Username Reason for Unfinalizing Freetext Reason for Unfinalizing 01/20/20 16:05 ROBEL Modify Pick List 01/23/20 16:19 JOSE Correct Billing Electronically signed by [facility] Conversion Track Repair Supervisor Cerner at 08/21/2022 11:51 AM CDT documented in this encounter Plan of Treatment Upcoming Encounters Date Type Department Care Team (Late st Contact Info) Description 11/25/2024 1:15 PM EDT Office Visit [facility] - [address] [place] [address] Mark Love MD [address] [place] [address] documented as of this encounter Visit Diagnoses Not on filedocumented in this encounter Care Teams Oil Pipe Inspector Helper Relationship Specialty Start Date End Date Collette Rendon APRN PCP - General Emergency Medicine 11/21/23 documented as of this encounter
--- OUTSIDE RECORDS SUMMARY | 2024-11-11 10:27 | XMS_ITS | Encounter Summary ---
Author Organization [employer] ([place], [place], [place], [place]) Address [address] [place] [address] Care Team Providers Care Security Installer Name Role Phone Justice Collette CARUSON Primary Care Provider [phone] Encounter Details Date Type Department Care Team (Late st Contact Info) Description 01/20/2020 Transcribed Document [facility] [place] [facility] [place] [address] ProviderDulce Maria MD [address] [place] [id number] Social History Tobacco Use Types Packs/Day Years Used Date Smoking Tobacco: Never Assessed Sex and Gender Information Value Date Recorded Sex Assigned at Male 10/30/2021 8:44 PM CDT Legal Sex Male 8:44 PM CDT Gender Identity Male 10/30/2021 8:44 PM CDT Sexual Orientation Not on file documented as of this encounter Miscellaneous Notes * [employer] Conversion Note - Dulce Maria ProviderMD - 01/20/2020 12:31 PM CDT Pain Assessment Entered On: 01/20/2020 17:05 EDT Performed On: 01/20/2020 17:03 EDT by JAVY WILLIAMSON RN Intervention Information: acetaminophen-HYDROcodone Performed by JAVY WILLIAMSON RN on 01/20/2020 16:03:00 EDT acetaminophen-HYDROcodone,2Tab Oral,Pain (Severe 7-10) Pain Assessment Pain Assessment : Follow-up assessment Pain Improved by Intervention : Yes JAVY WILLIAMSON RN - 01/20/2020 17:05 EDT Electronically signed by [facility] Conversion Philosophy And Religion Instructor Cerner at 08/21/2022 12:08 PM CDT documented in this encounter Plan of Treatment Upcoming Encounters Date Type Department Care Team (Late st Contact Info) Description 11/25/2024 1:15 PM EDT Office Visit [facility] Pulmonology - [address] [place] [id number] Mark Love MD [address] [place] [address] documented as of this encounter Visit Diagnoses Not on filedocumented in this encounter Care Teams Security Installer Relationship Specialty Start Date End Date Collette Rendon, LEIDY PCP - General Emergency Medicine 11/21/23 documented as of this encounter
--- OUTSIDE RECORDS SUMMARY | 2024-11-11 10:27 | XMS_ITS | Encounter Summary ---
Author Organization [employer] ([place], [place], [place], [place]) Address [address] [place] [address] Care Team Providers Care Croze Cutter Helper Name Role Phone Collette Rendon APRN Primary Care Provider [phone] Encounter Details Date Type Department Care Team (Late st Contact Info) Description 02/25/2020 Transcribed Document [facility] Family Medicine [address] [place] [address] ProviderDulce Maria MD [address] [place] [id number] Social History Tobacco Use Types Packs/Day Years Used Date Smoking Tobacco: Never Assessed Sex and Gender Information Value Date Recorded Sex Assigned at Male 10/30/2021 8:44 PM CDT Legal Sex Male 8:44 PM CDT Gender Identity Male 10/30/2021 8:44 PM CDT Sexual Orientation Not on file documented as of this encounter Miscellaneous Notes * [employer]ner Conversion Note - Historical ProviderMD - 02/25/2020 1:53 PM CDT Stroke/Warfarin Instructions Entered On: 02/25/2020 13:53 EDT Performed On: 02/25/2020 13:53 EDT by Iman Andino RN Stroke/Warfarin Instructions Stroke/TIA Discharge Ins : N/A Warfarin Discharge Ins : N/A Iman Andino RN - 02/25/2020 13:53 EDT documented in this encounter Plan of Treatment Upcoming Encounters Date Type Department Care Team (Late st Contact Info) Description 11/25/2024 1:15 PM EDT Office Visit [facility] Pulmonology - [address] [place] [address] Mark oLve MD [address] [place] [address] documented as of this encounter Visit Diagnoses Not on filedocumented in this encounter Care Teams Croze Cutter Helper Relationship Specialty Start Date End Date Collette Rendon, LEIDY PCP - General Emergency Medicine 11/21/23 documented as of this encounter
--- OUTSIDE RECORDS SUMMARY | 2024-11-11 10:27 | XMS_ITS | Encounter Summary ---
Author Organization [employer] ([place], [place], [place], [place]) Address [address] [place] [address] Care Team Providers Care Adding Machine Operator Name Role Phone Collette Rendon APRN Primary Care Provider [phone] Encounter Details Date Type Department Care Team (Late st Contact Info) Description 01/21/2020 Transcribed Document [facility] [place] [address] ProviderDulce Maria MD [address] [place] [address] Social History Tobacco Use Types Packs/Day Years Used Date Smoking Tobacco: Never Assessed Sex and Gender Information Value Date Recorded Sex Assigned at Male 10/30/2021 8:44 PM CDT Legal Sex Male 8:44 PM CDT Gender Identity Male 10/30/2021 8:44 PM CDT Sexual Orientation Not on file documented as of this encounter Miscellaneous Notes * [employer] Conversion Note - Historical ProviderMD - 01/21/2020 10:18 AM CDT Therapy Screen, PT Entered On: 01/21/2020 12:00 EDT Performed On: 01/21/2020 10:18 EDT by TOM POEWR, KATJA Therapy Screen, PT Medical Chart Reviewed : Yes Person Providing Information : Nurse Screen Completed : Yes Recommendation for Evaluation, PT : None Recommendations Upon Discharge : None Additional Therapy Screen Comment : PT/OT evals requested. Pt already up in the room with no assist and going home later this morning. RNJosy, agrees that PT/OT evals not needed due to pt being physically ind. TOM POWER, PT - 01/21/2020 11:59 EDT documented in this encounter Plan of Treatment Upcoming Encounters Date Type Department Care Team (Late st Contact Info) Description 11/25/2024 1:15 PM EDT Office Visit [facility] Pulmonology - [address] [place] [phone] Mark Love MD [address] [place] [address] documented as of this encounter Visit Diagnoses Not on filedocumented in this encounter Care Teams Adding Machine Operator Relationship Specialty Start Date End Date Collette Rendon, LEIDY PCP - General Emergency Medicine 11/21/23 documented as of this encounter
--- OUTSIDE RECORDS SUMMARY | 2024-11-11 10:27 | XMS_ITS | Encounter Summary ---
Author Organization [employer] ([place], [place], [place], [place]) Address [address] [place] [address] Care Team Providers Care [employer] Clerk Name Role Phone Carolyngeraldobeverley Collette CARUSON Primary Care Provider [phone] Encounter Details Date Type Department Care Team (Late st Contact Info) Description 01/21/2020 Transcribed Document [facility] [place] [address] [place] [address] ProviderDulce Maria MD [address] [place] [address] Social History Tobacco Use Types Packs/Day [...] Historical ProviderMD - 01/21/2020 10:18 AM CDT Stroke/Warfarin Instructions Entered On: 01/21/2020 10:18 EDT Performed On: 01/21/2020 10:18 EDT by JAVY WILLIAMSON RN Stroke/Warfarin Instructions Stroke/TIA Discharge Ins : Open Warfarin Discharge Ins : N/A JAVY WILLIAMSON RN - 01/21/2020 10:18 EDT Stroke/TIA Discharge Instructions Stroke Education Handouts Given *Q : Yes JAVY WILLIAMSON RN - 01/21/2020 10:18 EDT Stroke Education Materials Given-Grid Activation of EMS *Q : Verbalizes understanding Follow-up Care After Discharge *Q : Verbalizes understanding Medications prescribed at DC *Q : Verbalizes understanding Risk Factors for Stroke *Q : Verbalizes understanding Warning S&S of Stroke *Q : Verbalizes understanding JAVY WILLIAMSON RN - 01/21/2020 10:18 EDT Stroke/TIA Signs/Symptoms to Report Immediately : Sudden onset difficulty speaking, Sudden onset difficulty understanding speech, Sudden onset change in vision, Sudden onset weakness particulary on one side of the body, Sudden onset numbness/tingling, Sudden severe headache, Sudden dizziness or trouble with gait, Call 01-03-: EMS activation is crucial My LDL Level: : LDL Level No qualifying data available. JAVY WILLIAMSON RN - 01/21/2020 10:18 EDT Electronically signed by [facility] Conversion Unattended Ground Sensor Specialist Cerner at 08/21/2022 12:10 PM CDT documented in this encounter Plan of Treatment Upcoming Encounters Date Type Department Care Team (Late st Contact Info) Description 11/25/2024 1:15 PM EDT Office Visit [facility] Pulmonology - [address] [place] [phone] Mark Love MD [address] [place] [address] documented as of this encounter Visit Diagnoses Not on filedocumented in this encounter Care Teams [employer] Clerk Relationship Specialty Start Date End Date Collette Rendon APRN PCP - General Emergency Medicine 11/21/23 documented as of this encounter
--- OUTSIDE RECORDS SUMMARY | 2024-11-11 10:27 | XMS_ITS | Encounter Summary ---
Author Organization Healthcare Address [address] [place] [address] Care Team Providers Care Make Ready Mechanic Name Role Phone Dinh Ritchie MD Primary Care Provider [phone] Encounter Details Date Type Department Care Team (Latest Contact Info) Description 09/15/2024 Travel Social History Tobacco Use Types Packs/Day [...] Description 08/11/2025 1:20 PM EDT Office Visit [facility] [place] [address] [facility] [place] [address] Allie Serna MD [address] [place] [address] documented as of this encounter Visit Diagnoses [...] documented as of this encounter Care Teams Make Ready Mechanic Relationship Specialty Start Date End Date Dinh Ritchie MD [address] [facility] [place] [address] PCP - General 09/15/20 documented as of this encounter
--- OUTSIDE RECORDS SUMMARY | 2024-11-11 10:27 | XMS_ITS | Encounter Summary ---
Author Organization [employer] ([place], [place], [place], [place]) Address [address] [place] [address] Care Team Providers Care Shelter Supervisor Name Role Phone Carolyngeraldobeverley Collette CARUSON Primary Care Provider [phone] Encounter Details Date Type Department Care Team (Late st Contact Info) Description 02/25/2020 Transcribed Document [facility] [place] [facility] [place] [place] [address] ProviderDulce Maria MD [address] [place] [id number] Social History Tobacco Use Types Packs/Day Years Used Date Smoking Tobacco: Never Assessed Sex and Gender Information Value Date Recorded Sex Assigned at Male 10/30/2021 8:44 PM CDT Legal Sex Male 8:44 PM CDT Gender Identity Male 10/30/2021 8:44 PM CDT Sexual Orientation Not on file documented as of this encounter Miscellaneous Notes * Cerner Conversion Note - Dulce Maria ProviderMD - 02/25/2020 1:56 PM CDT [facility] [place] [address] HAYES MAYS :1950 Visit Time:02/24/2020 Your Visit Summary Your Care Team Admitting Physician - LISA WOOD MD-SUR Attending Physician - LISA WOOD MD-SUR Primary Care Physician - CARLOS CRAVEN MD-JEWELL Referring Physician - LISA WOOD MD-SUR Your Diagnosis Abdominal aortic aneurysm, without rupture, Abdominal aortic aneurysm, without rupture Aneurysm of artery of lower extremity, Pseudoaneurysm of femoral artery Discharge Vitals Temperature 36.8 ??C Temperature 36.8 ??C Heart Rate (Monitored) 74 Respiratory Rate 15 Blood Pressure 95/54 What to do next Instructions From Your Care Team Discharge Follow Up Instructions: Follow up with Dr. Wood in 2 weeks with RICARDO Activity: Discharge Activity: No heavy lifting over 10 lbs Diet: Discharge Diet: Resume usual diet as tolerated Wound/Incision Care Instructions: Keep operative site/wound clean and dry Showering/Bathing Instructions: May shower Driving Restriction: No driving until 24 hours after taking pain medication Follow-Up Appointments Follow Up with CARLOS CRAVEN MD-[facility] When Within 5 to 7 days Where: [address] [place] [address]- Follow Up with LISA WOOD When Within 2 weeks Comments postop f/u with RICARDO Where: [address] [facility] [address] [place] [address]- Business (1) Medications What How Much When Instructions Next Dose acetaminophen-hydrocodone (Nolan 7.5 mg-325 mg oral tablet) 1 Tablet(s) Oral Every 4 Hours as needed for as needed for pain as needed albuterol (Ventolin HFA 90 mcg/ inh inhalation aerosol) 2 Puff(s) Inhalation Every 6 Hours as needed for for wheezing as needed aspirin (aspirin 81 mg oral tablet) 1 Tablet(s) Oral Every Day 02/25 atorvastatin (atorvastatin 80 mg oral tablet) 1 Tablet(s) Oral At Bedtime 02/24 formoterol-glycopyrrolate (Bevespi Aerosphere 9 mcg-4.8 mcg/ inh inhalation aerosol) 2 Puff(s) Inhalation Two Times A Day this evening 02/24 Take your medications faithfully. Do NOT skip [...] No Known Medication Allergies Immunizations This Visit No Immunizations Found Education Materials Heart-Healthy Eating Plan Heart-healthy meal planning includes: ??? Eating less unhealthy fats. ??? Eating more healthy fats. ??? Making other changes in your diet. Talk with your doctor or a diet specialist (dietitian) to create an eating plan that is right for you. What is my plan? Your doctor may recommend an eating plan that includes: ??? Total fat: % or less of total calories a day. ??? Saturated fat: % or less of total calories a day. ??? Cholesterol: less than mg a day. What are tips for following this plan? Cooking Avoid frying your food. Try to bake, boil, grill, or broil it instead. You can also reduce fat by: ??? Removing the skin from poultry. ??? Removing all visible fats from meats. ??? Steaming vegetables in water or broth. Meal planning ??? At meals, divide your plate into four equal parts: ? Fill one-half of your plate with vegetables and green salads. ? Fill one-fourth of your plate with whole grains. ? Fill one-fourth of your plate with lean protein foods. ??? Eat 4???5 servings of vegetables per day. A serving of vegetables is: ? 1 cup of raw or cooked vegetables. ? 2 cups of raw leafy greens. ??? Eat 4???5 servings of fruit per day. A serving of fruit is: ? 1 medium whole fruit. ? ?? cup of dried fruit. ? ?? cup of fresh, frozen, or canned fruit. ? ?? cup of 100% fruit juice. ??? Eat more foods that have soluble fiber. These are apples, broccoli, carrots, beans, peas, and barley. Try to get 20???30 g of fiber per day. ??? Eat 4???5 servings of nuts, legumes, and seeds per week: ? 1 serving of dried beans or legumes equals ?? cup after being cooked. ? 1 serving of nuts is ?? cup. ? 1 serving of seeds equals 1 tablespoon. General information ??? Eat more home-cooked food. Eat less restaurant, buffet, and fast food. ??? Limit or avoid alcohol. ??? Limit foods that are high in starch and sugar. ??? Avoid fried foods. ??? Lose weight if you are overweight. ??? Keep track of how much salt (sodium) you eat. This is important if you have high blood pressure. Ask your doctor to tell you more about this. ??? Try to add vegetarian meals each week. Fats ??? Choose healthy fats. These include olive oil and canola oil, flaxseeds, walnuts, almonds, and seeds. ??? Eat more omega-3 fats. These include salmon, mackerel, sardines, tuna, flaxseed oil, and ground flaxseeds. Try to eat fish at least 2 times each week. ??? Check food labels. Avoid foods with trans fats or high amounts of saturated fat. ??? Limit saturated fats. ? These are often found in animal products, such as meats, butter, and cream. ? These are also found in plant foods, such as palm oil, palm kernel oil, and coconut oil. ??? Avoid foods with partially hydrogenated oils in them. These have trans fats. Examples are stick margarine, some tub margarines, cookies, crackers, and other baked goods. What foods can I eat? Fruits All fresh, canned (in natural juice), or frozen fruits. Vegetables Fresh or frozen vegetables (raw, steamed, roasted, or grilled). Green salads. Grains Most grains. Choose whole wheat and whole grains most of the time. Rice and pasta, including brown rice and pastas made with whole wheat. Meats and other proteins Lean, well-trimmed beef, veal, pork, and juárez. Chicken and turkey without skin. All fish and shellfish. Wild duck, rabbit, pheasant, and venison. Egg whites or low-cholesterol egg substitutes. Dried beans, peas, lentils, and tofu. Seeds and most nuts. Dairy Low-fat or nonfat cheeses, including ricotta and mozzarella. Skim or 1% milk that is liquid, powdered, or evaporated. Buttermilk that is made with low-fat milk. Nonfat or low-fat yogurt. Fats and oils Non-hydrogenated (trans-free) margarines. Vegetable oils, including soybean, sesame, sunflower, olive, peanut, safflower, corn, canola, and cottonseed. Salad dressings or mayonnaise made with a vegetable oil. Beverages Mineral water. Coffee and tea. Diet carbonated beverages. Sweets and desserts Sherbet, gelatin, and fruit ice. Small amounts of dark chocolate. Limit all sweets and desserts. Seasonings and condiments All seasonings and condiments. The items listed above may not be a complete list of foods and drinks you can eat. Contact a dietitian for more options. What foods should I avoid? Fruits Canned fruit in heavy syrup. Fruit in cream or butter sauce. Fried fruit. Limit coconut. Vegetables Vegetables cooked in cheese, cream, or butter sauce. Fried vegetables. Grains Breads that are made with saturated or trans fats, oils, or whole milk. Croissants. Sweet rolls. Donuts. High-fat crackers, such as cheese crackers. Meats and other proteins Fatty meats, such as hot dogs, ribs, sausage, manzano, rib-eye roast or steak. High-fat deli meats, such as salami and bologna. Caviar. Domestic duck and goose. Organ meats, such as liver. Dairy Cream, sour cream, cream cheese, and creamed cottage cheese. Whole-milk cheeses. Whole or 2% milk that is liquid, evaporated, or condensed. Whole buttermilk. Cream sauce or high-fat cheese sauce. Yogurt that is made from whole milk. Fats and oils Meat fat, or shortening. [place] butter, hydrogenated oils, palm oil, coconut oil, palm kernel oil. Solid fats and shortenings, including manzano fat, salt pork, lard, and butter. Nondairy cream substitutes. Salad dressings with cheese or sour cream. Beverages Regular sodas and juice drinks with added sugar. Sweets and desserts Frosting. Pudding. Cookies. Cakes. Pies. Milk chocolate or white chocolate. Buttered syrups. Full-fat ice cream or ice cream drinks. The items listed above may not be a complete list of foods and drinks to avoid. Contact a dietitian for more information. Summary ??? Heart-healthy meal planning includes eating less unhealthy fats, eating more healthy fats, and making other changes in your diet. ??? Eat a balanced diet. This includes fruits and vegetables, low-fat or nonfat dairy, lean protein, nuts and legumes, whole grains, and heart-healthy oils and fats. This information is not intended to replace advice given to you by your health care provider. Make sure you discuss any questions you have with your health care provider. Document Released: 10/20/2012 Document Revised: 06/25/2018 Document Reviewed: 05/29/2018 [employer] Patient Education ?? 2020 [employer] Femoral Endarterectomy, Care After This sheet gives you information about how to care for yourself after your procedure. Your health care provider may also give you more specific instructions. If you have problems or questions, contact your health care provider. What can I expect after the procedure? After the procedure, it is common to have mild pain. Follow these instructions at home: Incision care ??? Follow instructions from your health care provider about how to take care of your incision. Make sure you: ? Wash your hands with soap and water before you change your bandage (dressing). If soap and water are not available, use hand camp counselor. ? Change your dressing as told by [...] provider tells you to do that. ??? Check your incision area every day for signs of infection. Check for: ? Redness, swelling, or pain. ? Fluid or blood. ? Warmth. ? Pus or a bad smell. Bathing ??? Do not take baths, swim, or use a hot tub until your health care provider approves. Ask your health care provider if you may take showers. Driving ??? Do not drive for 24 hours if you were given a medicine to help you relax (sedative) during your procedure. ??? Do not drive or use heavy machinery while taking prescription pain medicine. Activity ??? Until your health care provider approves: ? Do not lift anything that is heavier than 10 lb (4.5 kg), or the limit that you are told. ? Do not do any activities that require a lot of energy (strenuous activities). ? Do not take long car trips. ? Do not travel by air. ? Do not sit or stand for long periods at a time. ??? Get up to take short walks every 1???2 hours. Ask for help if you feel weak or unsteady. ??? Raise (elevate) your leg above the level of your heart while you are sitting or lying down. ??? Exercise regularly, as told by your health care provider. Talk with your health care provider before starting a new exercise plan. ??? Return to your normal activities as told by your health care provider. Ask your health care provider what activities are safe for you. Eating and drinking ??? Eat a heart-healthy diet that includes fruits, vegetables, and whole grains. ??? Avoid saturated fats. ??? Follow instructions from your health care provider about any other eating and drinking restrictions. Lifestyle ??? Do not use any products that contain nicotine or tobacco, such as cigarettes and e-cigarettes. These can delay healing after surgery. If you need help quitting, ask your health care provider. ??? Maintain a healthy weight. Talk with your health care provider if you need help. If you are taking blood thinners: ??? Talk with your health care provider before you take any medicines that contain aspirin or NSAIDs. These medicines increase your risk for dangerous bleeding. ??? Take your medicine exactly as told, at the same time every day. ??? Avoid activities that could cause injury or bruising, and follow instructions about how to prevent falls. ??? Wear a medical alert bracelet or carry a card that lists what medicines you take. General instructions ??? Take idcs-ean-mlpzacx and prescription medicines only as told by your health care provider. ??? To prevent or treat constipation while you are taking prescription pain medicine, your health care provider may recommend that you: ? Drink enough fluid to keep your urine pale yellow. ? Eat foods that are high in fiber, such as fresh fruits and vegetables, whole grains, and beans. ? Limit foods that are high in fat and processed sugars, such as fried or sweet foods. ? Take an rqzf-wib-zzhziru or prescription medicine for constipation. ??? Wear compression stockings as told by your health care provider. These stockings help to prevent blood clots and reduce swelling in your legs. ??? Keep all follow-up visits as told by your health care provider. This is important. Contact a health care provider if you: ??? Have redness, swelling, or pain around your incision. ??? Have fluid or blood coming from your incision. ??? Notice that your incision feels warm to the touch. ??? Have pus or a bad smell coming from your incision. ??? Have a fever. ??? Have pain that does not get better with medicine. ??? Have pain in your leg while you walk. Get help right away if you: ??? Have: ? Severe pain. ? Shortness of breath. ? Chest pain. ? Red streaks leading away from your incision. ??? Notice that: ? Your leg becomes red, swollen, or sore. ? Your leg or foot changes color. ? Your leg or foot becomes numb. Summary ??? Check your incision area every day for signs of infection, such as redness or swelling. ??? Do not use any products that contain nicotine or tobacco, such as cigarettes and e-cigarettes. These can delay healing after surgery. ??? You should get help right away if you notice red streaks leading away from your incision. This information is not intended to replace advice given to you by your health care provider. Make sure you discuss any questions you have with your health care provider. Document Released: 07/16/2010 Document Revised: 02/11/2019 Document Reviewed: 03/05/2018 [employer] Patient Education ?? 2020 [employer]. Femoral Endarterectomy Femoral endarterectomy is surgery to clear a blocked femoral artery. The femoral artery is one of the main blood vessels that supplies blood to the legs. It is found in the groin area. The femoral artery can become blocked (peripheral arterial disease) by a buildup of fat, cholesterol, calcium, and other substances (plaque). Plaque may partially or completely block the artery or cause a blood clot to form, which can be dangerous. Femoral endarterectomy may be done as part of another blood vessel (vascular) surgery, and can also be done in combination with a stent (endovascular) procedure. Tell a health care provider about: ??? Any allergies you have. ??? All medicines you are taking, including vitamins, herbs, eye drops, creams, and elzm-utj-gmgpwhp medicines. ??? Any problems you or family members have had with anesthetic medicines. ??? Any blood disorders you have. ??? Any surgeries you have had. ??? Any medical conditions you have, including diabetes or kidney problems. ??? Whether you are or may be . What are the risks? Generally, this is a safe procedure. However, problems may occur, including: ??? Infection. ??? Bleeding. ??? Allergic reactions to medicines or dyes. ??? Nerve damage. ??? Blood clots. These can form in the legs. Clots that break loose could travel to the heart, lungs, or brain. ??? Return of plaque buildup. This may cause another blockage. This can happen months or years after the procedure. What happens before the procedure? Medicines ??? Ask your health care provider about: ? Changing or stopping your regular medicines. This is especially important if you are taking diabetes medicines or blood thinners. ? Taking medicines such as aspirin, ibuprofen, or other medicines. You may need to take blood thinners (anticoagulants) or aspirin before your procedure to prevent blood clots. Do not take these medicines unless your health care provider tells you to take them. ? Taking ooag-kvy-brqtafc medicines, vitamins, herbs, and supplements. Staying hydrated Follow instructions from your health care provider about hydration, which may include: ??? Up to 2 hours before the procedure ??? you may continue to drink clear liquids, such as water, clear fruit juice, black coffee, and plain tea. Eating and drinking restrictions Follow instructions from your health care provider about eating and drinking, which may include: ??? 8 hours before the procedure ??? stop eating heavy meals or foods such as meat, fried foods, or fatty foods. ??? 6 hours before the procedure ??? stop eating light meals or foods, such as toast or cereal. ??? 6 hours before the procedure ??? stop drinking milk or drinks that contain milk. ??? 2 hours before the procedure ??? stop drinking clear liquids. General instructions ??? Ask your health care provider how your surgical site will be marked or identified. ??? You may have tests, including: ? Blood tests. ? Doppler ultrasonogram. This test uses sound waves to check blood flow through your femoral artery and leg. ? Angiogram. This involves having dye put into your blood and then having X-rays taken. ??? Plan to have someone take you home from the hospital or clinic. ??? Plan to have a responsible adult care for you for at least 24 hours after you leave the hospital or clinic. This is important. What happens during the procedure? Ask your health care provider what steps will be taken to help prevent infection. These may include: ? Removing hair at the surgery site. ? Washing skin with a germ-killing soap. ??? Small monitors will be placed on your body. These will be used to check your heart, blood pressure, and oxygen level. ??? An IV will be inserted into one of your veins. ??? You will be given one or more of the following: ? A medicine to help you relax (sedative). ? A medicine to numb the area (local anesthetic). ? A medicine to make you fall asleep (general anesthetic). ? A medicine that is injected into an area of your body to numb everything below the injection site (regional anesthetic). ??? An incision will be made in your groin area, above the femoral artery. ??? A clamp will be placed on the femoral artery above and below the blockage. This will stop blood from flowing through the blocked area. ??? The femoral artery will be cut open. The plaque will be stripped away from the inner patel of the artery. ??? An angiogram may be done to check the location of the plaque and make sure that all the plaque has been cleaned away. To perform an angiogram, dye will be injected into your IV and then X-rays will be taken. ??? The femoral artery will be closed. ??? The clamp will be removed so that blood can flow through the femoral artery again. ??? The incision in your groin will be closed with carine or sutures (stitches). ??? A bandage (dressing) will be placed over the incision. The procedure may vary among health care providers and hospitals. What happens after the procedure? Your blood pressure, heart rate, breathing rate, and blood oxygen level will be monitored until you leave the hospital or clinic. ??? You may have to wear compression stockings. These stockings help to prevent blood clots and reduce swelling in your legs. ??? You will be given pain medicine as needed. ??? You may have an angiogram to make sure that blood is moving through your femoral artery correctly. ??? Do not drive for 24 hours if you were given a sedative. Summary ??? Femoral endarterectomy is surgery to clear a blocked femoral artery. The femoral artery is one of the main blood vessels that supplies blood to the legs. It is found in the groin area. ??? You should ask your health care provider about changing or stopping your regular medicines before surgery. ??? After surgery, you may have an angiogram to make sure that blood is moving through your femoral artery correctly. ??? You should not drive for 24 hours if you were given a sedative. This information is not intended to replace advice given to you by your health care provider. Make sure you discuss any questions you have with your health care provider. Document Released: 07/16/2010 Document Revised: 01/15/2019 Document Reviewed: 03/05/2018 [employer] Patient Education ?? 2020 [employer] Femoral Site Care This sheet gives you information about how to care for yourself after your procedure. Your health care provider may also give you more specific instructions. If you have problems or questions, contact your health care provider. What can I expect after the procedure? After the procedure, it is common to have: ??? Bruising that usually fades within 1???2 weeks. ??? Tenderness at the site. Follow these instructions at home: Wound care ??? Follow instructions from your health care provider about how to take care of your insertion site. Make sure you: ? Wash your hands with soap and water before you change your bandage (dressing). If soap and water are not available, use hand camp counselor. ? Change your dressing as told by [...] tub until your health care provider approves. ??? You may shower 24-48 hours after the procedure or as told by your health care provider. ? Gently wash the site with plain soap and water. ? Pat the area dry with a clean towel. ? Do not rub the site. This may cause bleeding. ??? Do not apply powder or lotion to the site. Keep the site clean and dry. ??? Check your femoral site every day for signs of infection. Check for: ? Redness, swelling, or pain. ? Fluid or blood. ? Warmth. ? Pus or a bad smell. Activity ??? For the first 2???3 days after your procedure, or as long as directed: ? Avoid climbing stairs as much as possible. ? Do not squat. ??? Do not lift anything that is heavier than 10 lb (4.5 kg), or the limit that you are told, until your health care provider says that it is safe. ??? Rest as directed. ? Avoid sitting for a long time without moving. Get up to take short walks every 1???2 hours. ??? Do not drive for 24 hours if you were given a medicine to help you relax (sedative). General instructions ??? Take nwqy-iyj-ykwzrpa and prescription medicines only as told by your health care provider. ??? Keep all follow-up visits as told by your health care provider. This is important. Contact a health care provider if you have: ??? A fever or chills. ??? You have redness, swelling, or pain around your insertion site. Get help right away if: ??? The catheter insertion area swells very fast. ??? You pass out. ??? You suddenly start to sweat or your skin gets clammy. ??? The catheter insertion area is bleeding, and the bleeding does not stop when you hold steady pressure on the area. ??? The area near or just beyond the catheter insertion site becomes pale, cool, tingly, or numb. These symptoms may represent a serious problem that is an emergency. Do not wait to see if the symptoms will go away. Get medical help right away. Call your local emergency services (911 in the [place] Do not drive yourself to the hospital. Summary ??? After the procedure, it is common to have bruising that usually fades within 1???2 weeks. ??? Check your femoral site every day for signs of infection. ??? Do not lift anything that is heavier than 10 lb (4.5 kg), or the limit that you are told, until your health care provider says that it is safe. This information is not intended to replace advice given to you by your health care provider. Make sure you discuss any questions you have with your health care provider. Document Released: 12/23/2014 Document Revised: 05/04/2018 Document Reviewed: 05/04/2018 [employer] Patient Education ?? 2020 [employer] Pseudoaneurysm An aneurysm is a bulge in an artery. A pseudoaneurysm happens when an artery is injured and blood leaks out and forms a sac-like bulge in the surrounding tissues. What are the causes? The most common cause of this condition is a procedure called an angiogram. During this procedure, a small, thin tube (catheter) is inserted into an artery. After an angiogram, the insertion site on the artery should close back up all the way. If it does not, blood may leak out of the artery. Other causes of a pseudoaneurysm include: ??? Trauma to the patel of an artery, such as from a stabbing injury or a deep cut. ??? Bypass artery grafting surgery, which is a type of surgery that makes blood flow to the heart better. ??? An infection that affects the patel of an artery. ??? A heart attack (myocardial infarction). What are the signs or symptoms? Symptoms of this condition include: ??? Pain, soreness, or tenderness at the site of the pseudoaneurysm. ??? Swelling. ??? Bruising or a change in skin color. ??? A throbbing mass or lump at the site. How is this diagnosed? This condition may be diagnosed based on: ??? Your symptoms. ??? A physical exam. ??? An imaging test called a Doppler ultrasound. This imaging test uses sound waves to show the blood flow in the arteries and the pseudoaneurysm. How is this treated? This condition may go away on its own without treatment. To help prevent bleeding that cannot be controlled, or to help prevent other problems, your health care provider may suggest one of these treatments: ??? Injecting a blood-clotting enzyme, such as thrombin, into the site. ??? Fixing the artery with surgery. ??? Putting pressure (compression) on the pseudoaneurysm. Follow these instructions at home: ??? Take zezn-bsg-wegjjde and prescription medicines only as told by your health care provider. ??? Return to your normal activities as told by your health care provider. Ask your health care provider what activities are safe for you. ??? Keep all follow-up visits as told by your health care provider. This is important. Contact a health care provider if: ??? Your pain, soreness, or tenderness at the pseudoaneurysm site keeps getting worse. ??? You have swelling at the site. Get help right away if: ??? You have severe or ongoing (persistent) pain at the site of the pseudoaneurysm. ??? There is bleeding or drainage from the site. ??? The part of your body where the pseudoaneurysm is located changes color or becomes painful, cold, or numb. ??? You have chest pain or shortness of breath. ??? You feel like you might faint or you faint. Summary ??? A pseudoaneurysm happens when an artery is injured and blood leaks out to form a sac-like bulge. ??? The most common cause of this condition is a procedure called an angiogram in which a thin tube (catheter) is inserted into an artery. ??? This condition may go away on its own without treatment. ??? Take burq-znu-qqhaubi and prescription medicines only as told by your health care provider. ??? Get help right away if the part of your body where the pseudoaneurysm is located changes color or becomes painful, cold, or numb. This information is not intended to replace advice given to you by your health care provider. Make sure you discuss any questions you have with your health care provider. Document Released: 10/07/2008 Document Revised: 01/27/2019 Document Reviewed: 01/27/2019 [employer] Patient Education ?? 2020 [employer]. Emergency Awareness and Preventative Care STROKE is [...] Assistance with quitting is available by contacting 9-929-DMXL-NOW. This is a free resource providing counseling, [...] This Visit (last charted value for your 02/24/2020 visit) Hematology 02/25/2020 4:40 AM WBC: 8.1 K/uL -- Normal range between ( 3.6 and 9.5 ) RBC: 3.41 Million/uL -- Normal range between ( 4.20 and 5.70 ) Hct: 31.6 % -- Normal range between ( 40.1 and 51.0 ) Hgb: 10.1 g/dL -- Normal range between ( 13.5 and 17.3 ) Platelet Count: 133 K/uL -- Normal range between ( 163 and 369 ) MCH: 29.6 pg -- Normal range between ( 25.6 and 32.2 ) MCHC: 32.0 Gram/dL -- Normal range between ( 32.2 and 36.5 ) MCV: 92.7 fL -- Normal range between ( 79.0 and 94.8 ) Slide Review: No RDW: 13.7 % -- Normal range between ( 11.7 and 14.9 ) MPV: 9.7 fL -- Normal range between ( 9.4 and 12.4 ) 02/23/2020 12:44 PM Eos %: 2.6 % -- Normal range between ( 0.0 and 7.0 ) [place] #: 0.61 K/uL -- Normal range between ( 0.16 and 1.00 ) Eos #: 0.17 x10(3)/uL -- Normal range between ( 0.00 and 0.80 ) [place] %: 9.3 % -- Normal range between ( 3.0 and 9.0 ) Baso %: 0.8 % -- Normal range between ( 0.0 and 1.5 ) Baso #: 0.05 x10(3)/uL -- Normal range between ( 0.00 and 0.20 ) Neut %: 63.6 % -- Normal range between ( 34.0 and 71.0 ) Neut #: 4.19 K/uL -- Normal range between ( 1.56 and 6.13 ) Lymph %: 23.4 % -- Normal range between ( 19.3 and 53.1 ) Lymph #: 1.54 x10(3)/uL -- Normal range between ( 1.00 and 3.90 ) IG#: 0.02 x10(3)/uL -- Normal range between ( 0.00 and 0.05 ) IG%: 0.30 % -- Normal range between ( 0.00 and 0.60 ) Microbiology 02/22/2020 12:00 PM Novel Coronavirus 2019: Negative Blood Bank 02/23/2020 12:46 PM ABO/Rh (ECHO): A POS Antibody Screen: Negative ABSC General Chemistry 02/25/2020 4:40 AM Creatinine Level: 0.60 mg/dL -- Normal range between ( 0.70 and 1.30 ) Sodium Level: 138 mmol/L -- Normal range between ( 136 and 146 ) Potassium Level: 4.2 mmol/L -- Normal range between ( 3.5 and 5.1 ) Chloride Level: 107 mmol/L -- Normal range between ( 102 and 112 ) Carbon Dioxide Level: 29 mmol/L -- Normal range between ( 21 and 32 ) Anion Gap: 6 -- Normal range between ( 9 and 20 ) Bun/Creatinine: 31.7 -- Normal range between ( 8.0 and 20.0 ) Calcium Level: 8.2 mg/dL -- Normal range between ( 8.4 and 10.1 ) eGFR : >60 mL/min/1.73m2 eGFR NonAfrican: >60 mL/min/1.73m2 Glucose Level: 117 mg/dL -- Normal range between ( 74 and 106 ) Blood Urea Nitrogen: 19 mg/dL -- Normal range between ( 7 and 22 ) Coagulation 02/23/2020 12:44 PM INR: 1.0 -- Normal range between ( 0.9 and 1.1 ) PT: 10.5 Second(s) -- Normal range between ( 9.6 and 12.0 ) Patient Name:HAYES MAYS I have received and understand this information and was given the opportunity to ask questions. Patient/Night Nurse Name: Patient/Night Nurse Signature: Relationship to Patient: Clinician/Hospital Night Nurse Signature: Date: Electronically signed by Victorina, [facility] Conversion Crystalizer Cerner at 08/21/2022 11:58 AM CDT documented in this encounter Plan of Treatment Upcoming Encounters Date Type Department Care Team (Late st Contact Info) Description 11/25/2024 1:15 PM EDT Office Visit [facility] Pulmonology - [address] [place] [address] Mark Love MD [address] [place] [address] documented as of this encounter Visit Diagnoses Not on filedocumented in this encounter Care Teams Shelter Supervisor Relationship Specialty Start Date End Date Collette Rendon APRN PCP - General Emergency Medicine 11/21/23 documented as of this encounter
--- OUTSIDE RECORDS SUMMARY | 2024-11-11 10:27 | XMS_ITS | Encounter Summary ---
Author Organization [employer] ([place], [place], [place], [place]) Address [address] [place] [address] Care Team Providers Care Tank Truck Driver Name Role Phone Collette Rendon APRN Primary Care Provider [phone] Encounter Details Date Type Department Care Team (Late st Contact Info) Description 01/21/2020 Transcribed Document [facility] [place] [address] ProviderDulce Maria MD [address] [place] [address] Social History Tobacco Use Types Packs/Day Years Used Date Smoking Tobacco: Never Assessed Sex and Gender Information Value Date Recorded Sex Assigned at Male 10/30/2021 8:44 PM CDT Legal Sex Male 8:44 PM CDT Gender Identity Male 10/30/2021 8:44 PM CDT Sexual Orientation Not on file documented as of this encounter Miscellaneous Notes * Cerner Conversion Note - Historical ProviderMD - 01/21/2020 2:00 AM CDT Continuous Pillowcase Cutter Details Entered On: 01/21/2020 0:41 EDT Performed On: 01/21/2020 2:00 EDT by GAVIOTA RODGERS RN Order Details Transport Mode Order Detail : Portable Isolation Precautions Order Detail : Standard Precautions Order Detail : N/A IV Order Detail : 1 Oxygen Order Detail : 1 Nurse Collect Order Detail : 0 Lift/Transfer : Minimal Central Line Order Detail : No Room Service : Appropriate Arterial Line : No GAVIOTA RODGERS RN - 01/21/2020 0:41 EDT documented in this encounter Plan of Treatment Upcoming Encounters Date Type Department Care Team (Late st Contact Info) Description 11/25/2024 1:15 PM EDT Office Visit [facility] Pulmonology - [address] [place] [phone] Mark Love MD [address] [place], [place] [id number] documented as of this encounter Visit Diagnoses Not on filedocumented in this encounter Care Teams Tank Truck Driver Relationship Specialty Start Date End Date Collette Rendon APRN PCP - General Emergency Medicine 11/21/23 documented as of this encounter
--- OUTSIDE RECORDS SUMMARY | 2024-11-11 10:27 | XMS_ITS | Encounter Summary ---
Author Organization [employer] ([place], [place], [place], [place]) Address [address] [place] [address] Care Team Providers Care Outsole Leveler Name Role Phone Collette Rendon APRN Primary Care Provider [phone] Encounter Details Date Type Department Care Team (Late st Contact Info) Description 02/25/2020 Transcribed Document [facility] [place] [address] [place] [address] ProviderDulce Maria MD [address] [place] [address] Social History Tobacco Use Types [...] Conversion Note - Historical ProviderMD - 02/25/2020 11:27 AM CDT UM Authorization Entered On: 02/25/2020 11:27 EDT Performed On: 02/25/2020 11:27 EDT by Kelsey Molina Rn-Utilization Review Primary Insurance Authorization Authorization and Policy Numbers : Insurance 1 Health Plan: MEDICARE Policy Number: [id number] Authorization Number: Insurance 2 Health Plan: [facility] Policy Number: [id number] Authorization Number: Insurance Primary Name : MEDICARE Authorized Service Begin Date-Primary : 02/24/2020 EDT Historical Authorization Comments-Primary : No Authorization Comments Found Kelsey Molina Rn-Utilization Review - 02/25/2020 11:27 EDT documented in this encounter Plan of Treatment Upcoming Encounters Date Type Department Care Team (Late st Contact Info) Description 11/25/2024 1:15 PM EDT Office Visit [facility] Pulmonology - [address] [place] [address] Mark Love MD [address] [place] [address] documented as of this encounter Visit Diagnoses Not on filedocumented in this encounter Care Teams Outsole Leveler Relationship Specialty Start Date End Date Collette Rendon APRN PCP - General Emergency Medicine 11/21/23 documented as of this encounter
--- OUTSIDE RECORDS SUMMARY | 2024-11-11 10:28 | XMS_ITS | Encounter Summary ---
Author Organization [employer] ([place], [place], [place], [place]) Address [address] [place] [address] Care Team Providers Care Steward/Stewardess Wine Name Role Phone Collette Rendon APRN Primary Care Provider [phone] Encounter Details Date Type Department Care Team (Late st Contact Info) Description 02/24/2020 Transcribed Document [facility] [place] [facility] [place] [address] ProviderDulce Maria MD [address] [place] [address] Social History Tobacco Use Types Packs/Day Years Used Date Smoking Tobacco: Never Assessed Sex and Gender Information Value Date Recorded Sex Assigned at Male 10/30/2021 8:44 PM CDT Legal Sex Male 8:44 PM CDT Gender Identity Male 10/30/2021 8:44 PM CDT Sexual Orientation Not on file documented as of this encounter Miscellaneous Notes * Cerner Conversion Note - Historical ProviderMD - 02/24/2020 5:00 PM CDT Chart Check - Review Order Profile Entered On: 02/24/2020 18:07 EDT Performed On: 02/24/2020 17:00 EDT by CODIE PINEDA RN Chart Check Power[employer] Initiated/Discontinued as Appropriate : Yes All Active Orders Reviewed : Yes CODIE PINEDA RN - 02/24/2020 18:06 EDT Electronically signed by Victorina [facility] Conversion Rn Field Case Manager Cerner at 08/21/2022 11:57 AM CDT documented in this encounter Plan of Treatment Upcoming Encounters Date Type Department Care Team (Late st Contact Info) Description 11/25/2024 1:15 PM EDT Office Visit [facility] Pulmonology - [address] [place] [address] Mark Love MD [address] [place] [address] documented as of this encounter Visit Diagnoses Not on filedocumented in this encounter Care Teams Steward/Stewardess Wine Relationship Specialty Start Date End Date Collette Rendon, LEIDY PCP - General Emergency Medicine 11/21/23 documented as of this encounter
--- OUTSIDE RECORDS SUMMARY | 2024-11-11 10:28 | XMS_ITS | Encounter Summary ---
Author Organization [employer] ([place], [place], [place], [place]) Address [address] [place] [address] Care Team Providers Care Horizontal Boring Mill Operator Name Role Phone Collette Rendon APRN Primary Care Provider [phone] Encounter Details Date Type Department Care Team (Late st Contact Info) Description 01/21/2020 Transcribed Document [facility] [place] [facility] [place] [address] ProviderDulce Maria MD [address] [place] [address] Social History Tobacco Use Types Packs/Day [...] Historical ProviderMD - 01/21/2020 10:[address] [facility] Charges Entered On: 01/21/2020 13:22 EDT Performed On: 01/21/2020 10:06 EDT by JOSE RAMIREZ OTR/L [facility] Charges Screen For Pet Groomer : 1 JOSE RAMIREZ OTR/L - 01/21/2020 13:21 EDT Electronically signed by Elisa Prajapati Conversion Wire Harness Design Engineer Cerner at 08/21/2022 11:54 AM CDT documented in this encounter Plan of Treatment Upcoming Encounters Date Type Department Care Team (Late st Contact Info) Description 11/25/2024 1:15 PM EDT Office Visit [facility] Pulmonology - [address] [place] [address] Mark Love MD [address] [place] [address] documented as of this encounter Visit Diagnoses Not on filedocumented in this encounter Care Teams Horizontal Boring Mill Operator Relationship Specialty Start Date End Date Collette Rendon, GARMENT STEAMER PCP - General Emergency Medicine 11/21/23 documented as of this encounter
--- OUTSIDE RECORDS SUMMARY | 2024-11-11 10:28 | XMS_ITS | Encounter Summary ---
Author Organization [employer] ([place], [place], [place], [place]) Address [address] [place] [address] Care Team Providers Care Services Tech Name Role Phone Collette Rendon APRN Primary Care Provider [phone] Encounter Details Date Type Department Care Team (Late st Contact Info) Description 01/21/[address] [facility] Radiology [address] [place] [address] Lisa Shell MD [address] [place] [address] Social History Tobacco Use Types Packs/Day Years Used Date Smoking Tobacco: Never Assessed Sex and Gender Information Value Date Recorded Sex Assigned at Male 10/30/2021 8:44 PM CDT Legal Sex Male 8:44 PM CDT Gender Identity Male 10/30/2021 8:44 PM CDT Sexual Orientation Not on file documented as of this encounter Miscellaneous Notes * Cerner Conversion Note - Lisa Shell MD - 01/21/2020 10:02 AM EDT Patient: HAYES MAYS Age: 69 Years Sex: Male : 1950 Subjective Mr. Mays states he is doing well and ready to go home. Only complaint some pain around access site. States he hasn't eaten much but doesn't usually. Good water intact. Denies abd and back pain Vital Signs T: 36.2 ??C TMIN: 36.2 ??C TMAX: 36.4 ??C HR: 73(Monitored) RR: 20 BP: 111/62 BP: 117/55(Line) SpO2: 94% HT: 167.64 cm WT: 62.68 kg BMI: 22.3 Physical Exam AAOx3. NAD. Sitting in bedside chair. at bedside. LEFT UE: art line d/c, good radial pulse RIGHT groin: Dermabond c/d/i with no hematoma. palpable femoral pulse LEFT groin: Dermabond c/d/i with mild ecchymosis, no hematoma, palpable femoral pulse BLE: warm, pink, well perfused audible signals VTE Risk Total Score VTE Prophylaxis - Surgical Aspirin 81 mg, Oral, Tab, Daily, Routine, Start 01/20/20 12:33:00 EDT (LISA SHELL) Enoxaparin 40 mg, SubCutaneous, Inj, Daily, Routine, Start 01/21/20 9:00:00 EDT (LISA SHELL) Sequential Compression Device Start: 01/20/20 12:31:00 EDT, Bilateral, While in Bed, to nonoperative leg ONLY, Continuous Order (LISA SHELL) Assessment/Plan Expanding infrarenal abdominal aortic aneurysm, greater than 5.5 cm. - 01/19: 1. Right femoral percutaneous access, large-bore 14-Bhutanese sheath. 2. Left femoral arterial exposure for endovascular deployment. 3. Infrarenal abdominal aortic aneurysm repair extending to iliac bifurcation, non-ruptured aorta. - hemodynamically stable - needs to eat, pass gas, and ambulate - if he tolerates these activities he can d/c home - f/u in 4 weeks with CTA AAA series; I spoke with our office and they will contact the patient with time and date COVID positive - lab called to state covid is positive - educated pt on COVID 19 - needs to quarantine for 2 weeks Labs Results JAN 20 04:31 138 106 16 / H 113 4.1 27 0.70 \ JAN 20 04:31 \ L 11.5 / H 12.1 189 / L 34.6 \ Anion Gap: 9 Calcium Level: 8.2 mg/dL Low Magnesium Level: 2.2 mg/dL Phosphorus: 2.6 mg/dL Imaging Results (Last 24 Hours) No Radiology Results Found documented in this encounter Plan of Treatment Upcoming Encounters Date Type Department Care Team (Late st Contact Info) Description 11/25/2024 1:15 PM EDT Office Visit [facility] Pulmonology - [address] [place] [phone] Mark Love MD [address] [place] [address] documented as of this encounter Visit Diagnoses Not on filedocumented in this encounter Care Teams Services Tech Relationship Specialty Start Date End Date Collette Rendon APRN PCP - General Emergency Medicine 11/21/23 documented as of this encounter
--- OUTSIDE RECORDS SUMMARY | 2024-11-11 10:28 | XMS_ITS | Encounter Summary ---
Author Organization [employer] ([place], [place], [place], [place]) Address [address] [place] [address] Care Team Providers Care Budget Manager Name Role Phone Collette Rendon APRN Primary Care Provider [phone] Encounter Details Date Type Department Care Team (Late st Contact Info) Description 02/24/2020 Transcribed Document [facility] Radiology [address] [place] [address] Armond Shell MD [address] [facility] [place] [address] Social History Tobacco Use Types Packs/Day Years Used Date Smoking Tobacco: Never Assessed Sex and Gender Information Value Date Recorded Sex Assigned at Male 10/30/2021 8:44 PM CDT Legal Sex Male 8:44 PM CDT Gender Identity Male 10/30/2021 8:44 PM CDT Sexual Orientation Not on file documented as of this encounter Miscellaneous Notes * Cerner Conversion Note - Armond Shell MD - 02/24/2020 4:46 PM EDT DATE OF PROCEDURE: 02/24/2020 SURGEON: Armond Shell MD PREOPERATIVE DIAGNOSES: 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 PROCEDURE PERFORMED: Repair of left external iliac pseudoaneurysm with femoral endarterectomy and bovine patch angioplasty. OPERATIVE INDICATIONS: The patient is a 69-year-old male, who has undergone an endovascular repair of abdominal aortic aneurysm. On his postoperative evaluation CT scan demonstrated a left external iliac artery pseudoaneurysm. He also has posterior lying heavily calcific plaque within the common femoral artery. He has been offered repair of the pseudoaneurysm with endarterectomy of the femoral artery. OPERATIVE FINDINGS: 1. Extensive adhesions and scarring from recent femoral access for endovascular abdominal aortic aneurysm repair. 2. Pseudoaneurysm was underneath the inguinal ligament, which was repaired with endarterectomy of the common femoral artery and bovine patch angioplasty. DESCRIPTION OF PROCEDURE: The patient was taken back to the operating, placed in supine position on the operating table. Following induction of general anesthesia and satisfactory endotracheal intubation, his abdomen and lower extremities were widely prepped and draped in a standard sterile fashion. Time-out was taken. He had a previous transverse scar, which was extended sharply. Subcutaneous tissue was entered successfully and sharp dissection was used to expose the common femoral artery. There was a lot of adhesions and this was stuck to the femoral vein. The SFA was in a [place] tissue plane. The pseudoaneurysm was stuck to the inguinal ligament, which was very carefully, sharply, and bluntly retracted away. A self retaining retractor was used for exposure underneath the inguinal ligament. Systemic heparinization was performed. The left external iliac artery was clamped as well as the SFA and profunda. A longitudinal arteriotomy was created through the previous anterior lying pseudoaneurysm. There was some thrombus present, which was removed. The inside of the artery had dissociation of the posterior plaque as well as some intima. Endarterectomy was performed with removal of plaque. This extended all the way into the origin of the SFA. The arterial wall was very thickened from the previous pseudoaneurysm. This was slightly challenging to sew. Bovine pericardial plaque was used to close the arteriotomy site. This was a running 6-0 Prolene. Upon completion, flow was established into the distal SFA. Heparin was reversed with protamine. The patient had normal Doppler signal as well as pulse was present within the distal SFA. Two-layer closure of the incision was performed with 2-0 Vicryl. Skin was closed with 4-0 Monocryl. The patient was then taken back to Recovery in stable condition. There were no immediate complications. /[id number] Armond MD RENNY Freeman/NANCY / NNA / MODL /[id number] documented in this encounter Plan of Treatment Upcoming Encounters Date Type Department Care Team (Late st Contact Info) Description 11/25/2024 1:15 PM EDT Office Visit [facility] Pulmonology - [address] [place] [address] Mark Love MD [address] [place] [address] documented as of this encounter Visit Diagnoses Not on filedocumented in this encounter Care Teams Budget Manager Relationship Specialty Start Date End Date Collette Rendon APRN PCP - General Emergency Medicine 11/21/23 documented as of this encounter
--- OUTSIDE RECORDS SUMMARY | 2024-11-11 10:28 | XMS_ITS | Encounter Summary ---
Author Organization [employer] ([place], [place], [place], [place]) Address [address] [place] [address] Care Team Providers Care Experience Specialist Name Role Phone Collette Rendon APRN Primary Care Provider [phone] Encounter Details Date Type Department Care Team (Late st Contact Info) Description 01/21/2020 Transcribed Document [facility] [place] [address] ProviderDulce Maria MD [address] [place] [address] Social History Tobacco Use Types Packs/Day Years Used Date Smoking Tobacco: Never Assessed Sex and Gender Information Value Date Recorded Sex Assigned at Male 10/30/2021 8:44 PM CDT Legal Sex Male 8:44 PM CDT Gender Identity Male 10/30/2021 8:44 PM CDT Sexual Orientation Not on file documented as of this encounter Miscellaneous Notes * Cerner Conversion Note - Historical ProviderMD - 01/21/2020 11:[address] [facility] Entered On: 01/21/2020 12:01 EDT Performed On: 01/21/2020 11:59 EDT by TOM POWER, PT [facility] Physical Therapy Screen : 1 TOM POWER, PT - 01/21/2020 11:59 EDT documented in this encounter Plan of Treatment Upcoming Encounters Date Type Department Care Team (Late st Contact Info) Description 11/25/2024 1:15 PM EDT Office Visit [facility] Pulmonology - [address] [place] [id number] Mark Love MD [address] [place] [address] documented as of this encounter Visit Diagnoses Not on filedocumented in this encounter Care Teams Experience Specialist Relationship Specialty Start Date End Date Collette Rendon APRN PCP - General Emergency Medicine 11/21/23 documented as of this encounter
--- OUTSIDE RECORDS SUMMARY | 2024-11-11 10:28 | XMS_ITS | Clinical Summary ---
Author Organization Healthcare Address [address] [place] [address] Care Team Providers Care Parking Line Painter Name Role Phone Dinh Ritchie MD Primary Care Provider [phone] Allergies Active Allergy Reactions Criticality Noted Date Comments Other Rash Low 11/12/2022 CHG wipes on chest. Medications albuterol 108 (90 Base) MCG/ACT inhaler Ventolin HFA 90 mcg/actuation aerosol inhaler 9 Active atorvastatin (Lipitor) 80 MG tablet 1 (one) time each day. 1 Active Glycopyrrolate-Fo rmoterol (Bevespi Aerosphere) 9-4.8 MCG/ACT aerosol 2 puffs in the morning and 2 puffs before bedtime. 9 Active dilTIAZem CD (Cardizem CD) 120 MG 24 hr capsuleIndication s:Paroxysmal atrial fibrillation (CMS/HCC) Take 1 capsule (120 mg total) by mouth 1 (one) time each day. 90 capsule 3 3 Active apixaban (Eliquis) 5 MG tablet Take 1 tablet by mouth in the morning and 1 tablet before bedtime. 180 tablet 3 5 Active Active Problems Problem Noted Date Diagnosed Date Status post placement of implantable loop record er 03/14/2021 S/P patent foramen ovale closure 12/02/2019 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 PFO (patent foramen ovale) 01/26/2019 Encounters Date Type Department Care Team Description 10/12/2024 8:50 AM EDT - 10/12/2024 11:59 PM EDT Hospital Encounter Cardiac Imaging [address] [place] [address] History of loop recorder Discharge Disposition: Home or Self Care 10/12/2024 Travel 09/15/2024 8:10 AM EDT - 09/15/2024 11:59 PM EDT Hospital Encounter Cardiac Imaging [address] [place] [address] Encounter for loop recorder check Discharge Disposition: Home or Self Care 09/15/2024 Travel 08/16/2024 4:55 PM EDT - 08/16/2024 11:59 PM EDT Hospital Encounter Cardiac Imaging [address] [place] [address] Encounter for loop recorder check Discharge Disposition: Home or Self Care 08/16/2024 Travel from Last 3 Months Immunizations Immunization Administration Dates Next Due Influenza, injectable, MDCK, preservative free, quadrivalent 01/21/2020 Pneumococcal Conjugate PCV 13 01/21/2020, 017 Family History Medical History Relation Name Comments Heart attack Father Stroke Other 1 Stroke Other 2 Heart attack Other 3 Relation Name Status Comments Father Other 1 Other 2 Other 3 Social History Tobacco Use Types Packs/Day Years Used Date Smoking Tobacco: Former Smokeless Tobacco: Never Tobacco Cessation:Counseling Given: Not Answered Alcohol Use Standard Drinks/Week Comments No 0 [...] on file Sexual Orientation Not on file Last Filed Vital Signs Vital Sign Reading Time Taken Comments Blood Pressure 144/86 08/09/2024 12:55 PM EDT Pulse 62 08/09/2024 12:55 PM EDT Temperature 36.4 C (97.6 F) 11/12/2022 1:34 PM EDT Respiratory Rate 20 11/12/2022 1:45 PM EDT Oxygen Saturation 94% 08/09/2024 12: 55 PM EDT Inhaled Oxygen Concentration - - Weight 50.8 kg (111 lb 15.9 oz) 025 12:55 PM EDT Height 167.6 cm (5' 6 ) 08/09/2024 12:5 5 PM EDT Body Mass Index 18.08 08/09/2024 12:55 PM EDT Plan of Treatment Upcoming Encounters Date Type Department Care Team (Late st Contact Info) Description 08/11/2025 1:20 PM EDT Office Visit [facility] [address] [place] [address] Allie Serna MD [address] [place] [address] Health Maintenance Due Date Last Done Comments [facility]-Medicare Annual Wellness (AWV) 1950 [facility]-/Child/Adol SDOH Screenings 1950 [facility]- SDOH Screenings 12/24/1969 [facility]-Adult SDOH Screenings 12/24/1969 [facility]-DTaP,Tdap,and Td Vaccines (1 - Tdap) 12/24/1970 CT Colonography 12/24/1996 Colonoscopy 12/24/1996 FIT-DNA 12/24/1996 FIT 12/24/1996 FOBT 12/24/1996 Sigmoidoscopy 12/24/1996 [facility]-Colorectal Cancer Screening 12/24/1996 [facility]-Zoster Vaccines (1 of 2) 12/24/2001 [facility]-Abdominal Aortic Aneurysm (AAA) Screening 12/24/2016 [facility]-Pneumococcal Vaccine: 50+ Years (2 of 2 - PPSV23) 01/20/2021 01/21/2020, 08/29/2016, 08/29/2016 [id number] Vaccine ( season) 2024 03/17/2024, 02/19/2023, 01/22/2022, Additional history exists [facility]-Influenza Vaccine (#1) 2025 01/21/2020 [facility]-Depression Screening 08/09/2025 08/09/2024, 11/2024 [facility]-Hepatitis C Screening Completed 01/14/2019 [facility]-RSV Vaccine: 60+ Years or Completed 02/19/2023 HPV Vaccines Aged Out No longer eligi ble based on patient's age to complete this topic [facility]-HIB Vaccines Aged Out No longer e ligible based on patient's age to complete this topic [facility]-Hepatitis A Vaccines Aged Out No longer eligible based on patient's age to complete this topic [facility]-IPV Vaccines Aged Out No longer e ligible based on patient's age to complete this topic [facility]-Rotavirus Vaccines Aged Out No lo nger eligible based on patient's age to complete this topic Medical Devices Implanted Type Area Engine Head Repairer Device Identifier Shelf Expiration Date Model / Serial / Lot [id number] Reveal Linq [id number] Implanted:04/11 (Quantity not on file) Pacemaker Medtronic [id number] REVEAL LINQ / [id number] / System Reveal Linq Ii Insertable [employer] - [id number] Implanted:Qty: 1 on 11/12/2022 by Allie Serna MD at [facility] [id number] 02/10/2024 [id number] / [id number] / [id number] Procedures Procedure Name Priority Date/Time Associated Diagnosis Comments CARDIAC DEVICE CHECK - REMOTE - LOOP RECORDER (ILR) Routine 10/12/2024 12:40 PM EDT History of loop recorder CARDIAC DEVICE CHECK - REMOTE - LOOP RECORDER (ILR) Routine 09/15/2024 8:14 AM EDT Encounter for loop recorder check CARDIAC DEVICE CHECK - REMOTE - LOOP RECORDER (ILR) Routine 08/16/2024 5:09 PM EDT Encounter for loop recorder check HEPATITIS C ANTIBODY - ED W/REFLEX TO HCV QUANT PCR Routine 01/14/2019 5:21 AM EDT from Last 3 Months or Most Recently Relevant to Health Maintenance Results * CARDIAC DEVICE CHECK - REMOTE - LOOP RECORDER (ILR) (10/12/2024 12:40 PM EDT) Only the most recent of3 resultswithin the time period is included. Anatomical Region Laterality Modality Other Narrative 10/12/2024 1:50 PM EDT [facility] - Device Clinic Remote CIED Report Name: Hayes Mays Date: 10/12/2024 : 1950 Age: 73 y.o. Reporting period: Reporting period is the last 31 days, with at least 10 days of remote monitoring. Interim reports, if any, reviewed and addressed previously; see remote alert entries for more details. Device: Medtronic LNQ22 implantable clinical research monitor (ICM) Battery: Status: Good Evaluation: Presenting rhythm: sinus with 1:1 intrinsic conduction to the ventricle. Trends Rate Histograms : demonstrate good rate distribution. Demonstrates appropriate sensing: Yes Arrhythmias: No new arrhythmia of significance since last CIED evaluation. Summary CIED functioning as expected, with given programming and data. us Key Pelletier James MOTOR ADJUSTER CV IMPLANTABLE CARDIAC DEV ICE PROCEDURES Final Result * [place] Hepatitis C Antibody (01/14/2019 5:21 AM EDT) Ian Hepatitis C Ab NEGATIVE Reference Range: Negative [facility] 01/14/2019 5:21 AM EDT 01/14/2019 5:26 AM EDT us Bernardino Triplett MD LAB BLOOD ORDERABLES Final Re sult SUNQUEST from Last 3 Months or Most Recently Relevant to Health Maintenance Insurance MEDICARE [facility] Advance Directives * Full Code (Latest Code Status on File) Date Activated Date Inactivated Comments 11/12/2022 1:21 PM 11/13/2022 4:01 AM Question Answer Comments Patient has decision-making capacity? Yes Care Teams Parking Line Painter Relationship Specialty Start Date End Date Dinh Ritchie MD [address] [facility] [place] [address] PCP - General 09/15/20
--- OUTSIDE RECORDS SUMMARY | 2024-11-11 10:28 | XMS_ITS | Encounter Summary ---
Author Organization [employer] ([place], [place], [place], [place]) Address [address] [place] [address] Care Team Providers Care Inclusion Specialist Name Role Phone Collette Rendon APRN Primary Care Provider [phone] Encounter Details Date Type Department Care Team (Late st Contact Info) Description 02/24/2020 Transcribed Document [facility] [place] Family Medicine [address] [place] [address] ProviderDulce Maria MD [address] [place] [address] Social History Tobacco Use Types Packs/Day Years Used Date Smoking Tobacco: Never Assessed Sex and Gender Information Value Date Recorded Sex Assigned at Male 10/30/2021 8:44 PM CDT Legal Sex Male 8:44 PM CDT Gender Identity Male 10/30/2021 8:44 PM CDT Sexual Orientation Not on file documented as of this encounter Miscellaneous Notes * Cerner Conversion Note - Historical ProviderMD - 02/24/2020 10:50 AM CDT [facility] Main OR IntraOp Summary Primary Physician: LISA WOOD MD-SUR Finalized Date/Time: 02/26/20 17:35:06 Pt. Name: HAYES MARTINEZ.O.B./Sex: 1950 Male Med Rec #: [id number] Physician: LISA WOOD MD-SUR Financial #: [id number] Pt. Type: I Room/Bed: [facility]/1 Admit/Disch: 02/24/20 06:34:00 - 02/25/20 14:33:00 Institution: [facility] IntraOp Case Attendance Entry 1 Entry 2 Entry 3 Case Attendee LISA WOOD MD-SUR BOWEN, JON B, MD-ANS OTHER, ATTENDEE #3 Role Performed Surgeon/Proceduralist, Anesthesiologist of ASSISTANT PROFESSOR OF PSYCHOLOGY/Nurse Overhead Crane Truck Loader First Record Time In 02/24/20 10:24:00 02/24/20 10:24:00 02/24/20 10:24:00 Time Out 02/24/20 12:31:00 02/24/20 12:31:00 02/24/20 12:31:00 Procedure Femoral Artery Femoral Artery Femoral Artery Endarterectomy(Left) Endarterectomy(Left) Endarterectomy(Left) Other Attendee DARLYN QUINTANILLA CRNA Superficial Wound Closed By: Last Modified By: Livia Acosta RN Proffitt, Debbie, RN Proffitt, Debbie, RN 02/24/20 12:30:59 02/24/20 12:30:59 02/24/20 11:00:23 Entry 4 Entry 5 Entry 6 Case Attendee OTHER, ATTENDEE #[address] OTHER, ATTENDEE #2 Role Performed ASSISTANT PROFESSOR OF PSYCHOLOGY/Nurse Overhead Crane Truck Loader Scrub, First Student Time In 02/24/20 10:24:00 02/24/20 10:24:00 02/24/20 10:24:00 Time Out 02/24/20 12:31:00 02/24/20 12:08:00 02/24/20 12:31:00 Procedure Femoral Artery Femoral Artery Femoral Artery Endarterectomy(Left) Endarterectomy(Left) Endarterectomy(Left) Other Attendee madeleine jaime ST STUDENT student Superficial Wound Closed By: Last Modified By: Livia Acosta, Livia Randhawa RN Proffitt, Debbie, RN 02/24/20 10:35:08 02/24/20 12:08:36 02/24/20 10:35:08 Entry 7 Entry 8 Entry 9 Case Attendee Livia Acosta, HÉCTOR KIRKPATRICK, DINA DEVRIES, WILMAN PA Role Performed Buggy Man, First Buggy Man, Second Physician accounting administrative assistant Time In 02/24/20 10:24:00 02/24/20 10:24:00 02/24/20 10:34:00 Time Out 02/24/20 11:04:00 02/24/20 11:49:00 02/24/20 12:31:00 Procedure Femoral Artery Femoral Artery Femoral Artery Endarterectomy(Left) Endarterectomy(Left) Endarterectomy(Left) Other Attendee Superficial Wound Closed By: Last Modified By: Livia Acosta RN Proffitt, Debbie, Livia Randhawa, DINA 02/24/20 11:54:00 02/24/20 11:54:00 02/24/20 12:30:59 Entry 10 Entry 11 Case Attendee Livia Acosta, JOSEMANUEL GALLO, ZONING ENGINEER Role Performed Buggy Man, First Scrub, First Time In 02/24/20 11:45:00 02/24/20 12:07:00 Time Out 02/24/20 12:31:00 02/24/20 12:31:00 Procedure Femoral Artery Femoral Artery Endarterectomy(Left) Endarterectomy(Left) Other Attendee Superficial Wound Closed By: Last Modified By: Livia Acosta, Livia Randhawa, DINA 02/24/20 12:30:59 02/24/20 12:30:59 [facility] IntraOp Case Attendance Audit 02/24/20 12:30:59 Call Center Dispatcher: PROFITDE Modifier: PROFITDE 1 <+> Time Out 1 <*> Procedure Femoral Artery Endarterectomy(Left) 2 <+> Time Out 2 <*> Procedure Femoral Artery Endarterectomy(Left) 3 <+> Time Out 3 <*> Procedure Femoral Artery Endarterectomy(Left) 4 <+> Time Out 4 <*> Procedure Femoral Artery Endarterectomy(Left) 5 <*> Procedure Femoral Artery Endarterectomy(Left) 6 <+> Time Out 6 <*> Procedure Femoral Artery Endarterectomy(Left) 7 <*> Procedure Femoral Artery Endarterectomy(Left) 8 <*> Procedure Femoral Artery Endarterectomy(Left) 9 <+> Time Out 9 <*> Procedure Femoral Artery Endarterectomy(Left) 10 <+> Time Out 10 <*> Procedure Femoral Artery Endarterectomy(Left) 11 <+> Time Out 11 <*> Procedure Femoral Artery Endarterectomy(Left) 02/24/20 12:08:36 Call Center Dispatcher: PROFITDE Modifier: PROFITDE 5 <+> Time Out 5 <*> Procedure Femoral Artery Endarterectomy(Left) <+> 11 Case Attendee <+> 11 Role Performed <+> 11 Time In <+> 11 Procedure 02/24/20 11:54:00 Call Center Dispatcher: PROFITDE Modifier: PROFITDE 7 <+> Time Out 7 <*> Procedure Femoral Artery Endarterectomy(Left) 8 <+> Time Out 8 <*> Procedure Femoral Artery Endarterectomy(Left) <+> 10 Case Attendee <+> 10 Role Performed <+> 10 Time In <+> 10 Procedure 02/24/20 11:00:23 Call Center Dispatcher: PROFITDE Modifier: PROFITDE 3 <*> Case Attendee SOCORRO SANTIZO CRNA 3 <*> Procedure Femoral Artery Endarterectomy(Left) 3 <+> Other Attendee 02/24/20 10:49:14 Call Center Dispatcher: PROFITDE Modifier: PROFITDE <+> 1 Procedure 2 <*> Procedure Femoral Artery Endarterectomy(Left) 3 <*> Procedure Femoral Artery Endarterectomy(Left) 4 <*> Procedure Femoral Artery Endarterectomy(Left) 5 <*> Procedure Femoral Artery Endarterectomy(Left) 6 <*> Procedure Femoral Artery Endarterectomy(Left) 7 <*> Procedure Femoral Artery Endarterectomy(Left) 8 <*> Procedure Femoral Artery Endarterectomy(Left) 9 <*> Procedure Femoral Artery Endarterectomy(Left) 02/24/20 10:47:33 Call Center Dispatcher: PROFITDE Modifier: PROFITDE 9 <*> Procedure Femoral Artery Endarterectomy(Left) [facility] IntraOp Case Times Entry 1 Patient In Room Time 02/24/20 10:24:00 Out Room Time 02/24/20 12:31:00 Anesthesia Start Time 02/24/20 10:24:00 Stop Time 02/24/20 12:31:00 Anesthesia Ready 02/24/20 10:24:00 Surgery / Procedure Times Start Time 02/24/20 10:50:00 Stop Time 02/24/20 12:20:00 Last Modified By: Livia Acosta RN 02/24/20 10:32:11 [facility] IntraOp Case Times Audit 02/24/20 12:30:56 Call Center Dispatcher: PROFITDE Modifier: PROFITDE <+> 1 Out Room Time <+> 1 Stop Time 02/24/20 12:28:39 Call Center Dispatcher: PROFITDE Modifier: PROFITDE <+> 1 Stop Time 02/24/20 10:50:44 Call Center Dispatcher: PROFITDE Modifier: PROFITDE <+> 1 Start Time [facility] IntraOp Cautery Entry 1 ESU Identification Cautery Type Monopolar ESU ID Number [id number] ID Type Hospital Number Cautery Settings Cut Setting 30 Coag Setting 30 ESU Grounding Pad Ground Pad Type Adult Grounding Pad Site Right Flank Grounding Pad HÉCTOR GARCIA RN Applied By Grounding Pad Site Warm, Dry, Intact Skin Condition Before Cautery Grounding Pad Site Unchanged Skin Condition After Cautery Last Modified By: Livia Acosta RN 02/24/20 10:49:40 [facility] IntraOp Communication Entry 1 Entry 2 Communication To Family/Significant other Family/Significant other Comment INCISION CLOSING Communication By HÉCTOR GARCIA RN Proffitt, Debbie, RN Date and Time 02/24/20 10:50:00 02/24/20 12:05:00 Last Modified By: Livia Acosta RN Proffitt, Debbie, RN 02/24/20 10:50:41 02/24/20 12:07:27 [facility] IntraOp Communication Audit 02/24/20 12:07:27 Call Center Dispatcher: PROFITDE Modifier: PROFITDE <+> 2 Communication By <+> 2 Date and Time <+> 2 Communication To <+> 2 Comment [facility] IntraOp Counts Verification Entry 1 Procedure Femoral Artery Endarterectomy(Left) Count Info Count Type Sponge, Sharps, Miscellaneous Counts Verification Baseline/pre-procedure Sequence Count Results Not Applicable Counts Performed By Count Performed By ZEYNEP BETANCOURT ST (Scrub) Count Performed By HÉCTOR GARCIA RN (RN) Last Modified By: Livia Acosta RN 02/24/20 10:45:23 [facility] IntraOp Counts Final Entry 1 Procedure Femoral Artery Endarterectomy(Left) Final Count Info Count Type Sponge, Sharps, Miscellaneous Counts Verification Skin Closure/end of Sequence procedure Count Results Correct, surgeon notified Counts Performed By Count Performed By ZEYNEP BETANCOURT ST (Scrub) Count Performed By Livia Acosta RN (RN) Last Modified By: Livia Acosta RN 02/24/20 12:07:42 [facility] IntraOp Cultures and Spec Summary Entry 1 Cultrures and Specimens Specimen Ordered: Yes Test(s) Routine/Path-Lab Requested/Final Disposition Last Modified By: Livia Acosta RN 02/24/20 10:51:58 [facility] IntraOp Departure from OR Entry 1 Integumentary Assessment Integumentary WDL with patient Assessment WDL specific variances Patient's Normal PREOP PLUS OPSITE Integumentary Variance(s) Transfer/Handoff Transfer to PACU Phase I Handoff Method Bedside/Face to face Handoff Reported to Rohan Thorpe RN Post-op Transport Bed (including Via specialty) Patient Transport OTHER, ATTENDEE #1, Accompanied by WILMAN DEVRIES PA Last Modified By: Livia Acosta RN 02/24/20 10:56:15 [facility] IntraOp Dressing and Packing Entry 1 Type Dressing Location GROIN Wound Dressing Item Skin Closure Glue Applied By WILMAN DEVRIES PA Last Modified By: Livia Acosta RN 02/24/20 12:31:37 [facility] IntraOp Fire Risk Assessment Entry 1 Fire Info Surgical Site or 0- No Incision Above the Xyphoid Open O2 Source 0- No (Mask or Cannula) Available Ignition 1- Yes (ESU, Laser, Light Source) Fire Risk 1 Assessment Score Fire Score Fire Risk Yes Assessment Complete Fire Risk Livia Acosta RN Assessment Verified By Fire Risk 02/24/20 10:31:00 Assessment Verified Date/Time Fire Risk Standard Fire Yes Safety Precautions Followed Last Modified By: Livia Acosta RN 02/24/20 10:54:05 [facility] IntraOp General Case Senior Interactive Producer 1 Case Information OR OR 11 [facility] Case Level 1 Room Verified Yes Wound Class I - Clean Specialty SN General Anesthesia Type General ASA Class 3 Diagnosis Preop Diagnosis PSEUDOANEURYSM LEFT FEMORAL ARTERY Postop Same As Preop No Postop Diagnosis SEE POSTOP NOTES Last Modified By: Livia Acosta RN 02/24/20 10:53:53 [facility] IntraOp Implant Log Entry 1 Type Tissue Implant (Biologic) Implant Log Implant [facility] Identification [id number] Description Implant Quantity 1 Implant Site LEFT FEMORAL Implant [id number] Identification Lot Number Implant [employer] [facility] Identification Chipper Name: Implant [id number] Identification Catalog Number Implant Has an Yes Expiration Date Implant Expiration 07/28/25 Date Tissue Implant Graft Prep Per Yes Chipper Instructions: Preparation RINSED IN SALINE Materials, Other Preparation [id number] Materials, Other Lot Number Preparation 06/05/22 Materials, Other Expiration Date Tissue ASIAZEYNEP ST Prepared/Processed By Chipper Yes Paperwork Completed Last Modified By: Livia Acosta RN 02/24/20 11:21:41 [facility] IntraOp Intraoperative Assessment Entry 1 Handoff Report TI BRUNSON RN Received from Handoff Reported to Livia Acosta RN Handoff Method Bedside/Face to face, Online nursing summary, Other Valid History / Yes Physical in Chart Preoperative Yes Checklist Reviewed/Evaluated Allergies Reviewed Yes Patient is Latex No Sensitive Isolation Not applicable Precautions Noted Level of WDL Consciousness (WDL = Alert, Oriented to Person, Place, and Time) Skin Assessment Yes Verified Present Upon IVs, Arterial line, Arrival to OR Oxygen Last Modified By: Livia Acosta RN 02/24/20 10:51:51 [facility] IntraOp Intraoperative Equipment Entry 1 Type Monitoring Equipment Intraop Monitoring Electrocardiogram Five lead placement (ECG) Electrode Placement Blood Pressure Arterial Pressure Line Source Blood Pressure Arterial Location Pulse Oximeter Hand, right Probe Site Antiembolic Devices Scopes Photo/Video Documentation Photo No Video No Last Modified By: Livia Acosta RN 02/24/20 10:54:26 [facility] IntraOp Intraoperative Equipment Audit 02/24/20 11:15:22 Call Center Dispatcher: PROFITREGGIE Modifier: PROFITDE 1 <+> Photo 1 <+> Video 1 <*> Type Equipment [facility] IntraOp Medication Admin Entry 1 Entry 2 Medication/Irrigant COMBO heparinized NS HEMOSTAT SURGICEL SNOW 1000units/100ml - [id number] Combo Med List Time Administered Route of FLUSH TOPICAL Administration Dose Dose 1000 1 Unit of Measure units pkt Volume Administered By LISA WOOD MD-SUR ABEDI, NICK NIMA, MD-SUR Procedure Irrigation Irrigant Volume In Irrigant Volume Out Last Modified By: Livia Acosta RN Proffitt, Debbie, RN 02/24/20 11:16:16 02/24/20 11:16:16 [facility] IntraOp Patient Positioning Entry 1 Procedure Femoral Artery Endarterectomy(Left) Body Position Supine Left Arm Position Secured on padded arm board Right Arm Position Secured on padded arm board Left Leg Position Uncrossed, parallel Right Leg Position Uncrossed, parallel Feet Uncrossed Yes Pressure Points Yes Checked Positioning Devices Head Rest, Pad, Arm, Safety Strap, Chest, Pad, Elbow, Pad, Heel, Arm Board, Pad, Mattress Device Position TEMPURPEDIC MATTRESS Positioned By Livia Acosta RN, HÉCTOR GARCIA RN, OTHER, ATTENDEE #1 Position Verified Positioning Yes Verified by Anesthesia Positioning Yes Verified by Surgeon Last Modified By: Livia Acosta RN 02/24/20 10:59:54 [facility] IntraOp Patient Positioning Audit 02/24/20 11:17:33 Call Center Dispatcher: PROFITDE Modifier: PROFITDE 1 <*> Procedure Femoral Artery Endarterectomy(Left) 1 <*> Positioning Devices Head Rest, Pad, Arm, Safety Strap, Chest, Pad, Elbow, Pad, Elbow, Pad, Heel, Arm Board 02/24/20 10:59:54 Call Center Dispatcher: PROFITDE Modifier: PROFITDE 1 <*> Procedure Femoral Artery Endarterectomy(Left) 1 <*> Positioned By Livia Acosta RN [facility] IntraOp Sign In Entry 1 Patient, Site, Yes Procedure Identified Surgical Consent Yes Confirmed Relevant Surgical Yes Documents Available Surgical Site Yes Marked by person performing procedure Anesthesia Machine Yes Check Completed Medication Checks Yes Completed Allergies No Airway Difficult No Airway/Aspiration Risk Difficult Yes Airway/Aspiration Intervention Equipment Available Blood Loss Risk Yes Blood Loss Yes Intervention Equipment Prepared and Ready Blood Identifiers Yes Verified Per Policy Hypothermia Risk Yes Warming Measures Yes Taken Last Modified By: Livia Acosta RN 02/24/20 10:54:42 [facility] IntraOp Sign In Audit 02/24/20 11:17:51 Call Center Dispatcher: PROFITDE Modifier: PROFITDE 1 <*> Allergies Yes 1 <*> Difficult Airway/Aspiration No Intervention Equipment Available 02/24/20 10:54:42 Call Center Dispatcher: PROFITDE Modifier: PROFITDE 1 <*> Difficult Airway/Aspiration Risk Yes 1 <*> Difficult Airway/Aspiration Yes Intervention Equipment Available 1 <+> Blood Identifiers Verified Per Policy [facility] IntraOp Sign Out Entry 1 RN Confirmation Surgical Yes Procedure(s) Identified Instrument, Sponge Yes and Sharps Counts Correct/Documented Equipment Problems N/A Documented Specimen Labeled Yes Correctly Urinary Catheter Yes Documented in IView Daily Patient Yes Recovery Concerns Reviewed with Anesthesia Provider, Surgeon and RN Daily Patient Yes Management Concerns Reviewed with Anesthesia Provider, Surgeon and RN Safety Checklist Yes Elements Complete? RN Sign Out Livia Acosta RN Signature RN Sign Out 02/24/20 12:31:00 Signature Date/Time Plan of Care Outcome - [...] of Care Outcome - Xray/Images OUTCOME STATEMENT: N/A Absence of observable signs or symptoms of radiation injury Plan of Care Outcome - Counts OUTCOME STATEMENT: Goal met Absence of signs and symptoms of injury related to extraneous objects Last Modified By: Livia Acosta RN 02/24/20 12:29:03 [facility] IntraOp Sign Out Audit 02/24/20 12:31:10 Call Center Dispatcher: PROFITDE Modifier: PROFITDE <+> 1 RN Sign Out Signature Date/Time [facility] IntraOp Skin Prep Entry 1 Procedure Femoral Artery Endarterectomy(Left) Prescribed Yes Pre-Surgical Prep Completed Prep Area UMBILICUS TO BILATERAL KNEES Intraop Prep Integumentary WDL with patient Assessment WDL specific variances WDL Patient PRE-EXISTING HEALING Exceptions INCISION LEFT GROIN Prep Agents Chloraprep Prep by HÉCTOR GARCIA RN Hair Removal Methods Clipper/Scissors Hair Removal Site GROIN Hair Removal By HÉCTOR GARCIA RN Last Modified By: Livia Acosta RN 02/24/20 10:55:13 [facility] IntraOp Skin Prep Audit 02/24/20 11:19:14 Call Center Dispatcher: PROFITDE Modifier: PROFITDE 1 <+> Methods 1 <+> Hair Removal Site 1 <*> Procedure Femoral Artery Endarterectomy(Left) 1 <+> Hair Removal By [facility] IntraOp Surgical Procedures Entry 1 Procedure Femoral Artery Endarterectomy Modifiers Left Additional LEFT COMMON FEMORAL Procedure ENDARTERECTOMY AND LEFT Description EXTERNAL ILIAC PSEUDO ANEURYSM REPAIR Primary Procedure Yes Primary Surgeon LISA WOOD MD-SANIA Start 02/24/20 10:50:00 Stop 02/24/20 12:20:00 Anesthesia Type General Specialty SN General Wound Class I - Clean Last Modified By: Livia Acosta RN 02/24/20 12:09:38 [facility] IntraOp Surgical Procedures Audit 02/24/20 12:31:03 Call Center Dispatcher: PROFITDE Modifier: PROFITDE <+> 1 Stop 02/24/20 12:09:38 Call Center Dispatcher: PROFITDE Modifier: PROFITDE 1 <*> Procedure Femoral Artery Endarterectomy 1 <*> Additional Procedure Description (LT COMMON FEMORAL ENDARTERECTOMY AND PSEUDO ANEURYSM REPAIR) 02/24/20 11:17:35 Call Center Dispatcher: PROFITDE Modifier: PROFITDE <+> 1 Start [facility] IntraOP Time Out Entry 1 Procedure to be Femoral Artery Performed Endarterectomy(Left) Time Out Time Out Pause Time 02/24/20 10:49:00 All activity Yes suspended (unless life threatening [...] present, Performed in location of procedure after prepped/draped, Performed before each procedure if multiple procedures, Reconcile problems if responses among team members differ Antibiotic Yes Prophylaxis Administered Or In Progress Within the Last 60 Minutes Beta Jose Luis N/A Administered Venous Yes Thromboembolism Prophylaxis Required Anticipated Critical Events Surgeon None expected Anesthesia Provider Patient specific concerns Nursing Assures Sterility of instruments Essential Imaging Yes Labeled and Displayed Last Modified By: Livia Acosta RN 02/24/20 10:51:17 Case Comments <None> Finalized By: TASIA GILBERT Document Signatures Signed By: Livia Acosta RN 02/24/20 12:31 TASIA GILBERT 02/26/20 17:35 Unfinalized History Date/Time Username Reason for Unfinalizing Freetext Reason for Unfinalizing 02/26/20 17:32 [facility] Correct Billing Electronically signed by Victorina [facility] Conversion Career Technical Counselor Cerner at 08/21/2022 11:53 AM CDT documented in this encounter Plan of Treatment Upcoming Encounters Date Type Department Care Team (Late st Contact Info) Description 11/25/2024 1:15 PM EDT Office Visit [facility] Pulmonology - [address] [place] [id number] Mark Love MD [address] [place] [address] documented as of this encounter Visit Diagnoses Not on filedocumented in this encounter Care Teams Inclusion Specialist Relationship Specialty Start Date End Date Collette Rendon APRN PCP - General Emergency Medicine 11/21/23 documented as of this encounter
--- OUTSIDE RECORDS SUMMARY | 2024-11-11 10:28 | XMS_ITS | Encounter Summary ---
Author Organization [employer] ([place], [place], [place], [place]) Address [address] [place] [address] Care Team Providers Care Strickler Attendant Name Role Phone Collette Rendon APRN Primary Care Provider [phone] Encounter Details Date Type Department Care Team (Late st Contact Info) Description 02/24/2020 Transcribed Document [facility] [place] Family Medicine [address] [place] [address] ProviderDulce Maria MD [address] [place] [address] Social History Tobacco Use Types Packs/Day Years Used Date Smoking Tobacco: Never Assessed Sex and Gender Information Value Date Recorded Sex Assigned at Male 10/30/2021 8:44 PM CDT Legal Sex Male 8:44 PM CDT Gender Identity Male 10/30/2021 8:44 PM CDT Sexual Orientation Not on file documented as of this encounter Miscellaneous Notes * [employer]ner Conversion Note - Historical ProviderMD - 02/24/2020 1:49 PM CDT Pain Assessment Entered On: 02/24/2020 15:34 EDT Performed On: 02/24/2020 14:55 EDT by CODIE PINEDA RN Intervention Information: belladonna-opium Performed by MATHEW CORTEZ on 02/24/2020 13:55:00 EDT belladonna-opium,1Supp Rectal,Spasms Pain Assessment Pain Assessment : Follow-up assessment Pain Scale Goal : 5 Pain Scale Used : 0-10 Scale CODIE PINEDA RN - 02/24/2020 15:34 EDT Pain Scale Intensity : 1 CODIE PINEDA RN - 02/24/2020 15:34 EDT Image 4 - Images currently included in the form version of this document have not been included in the text rendition version of the form. documented in this encounter Plan of Treatment Upcoming Encounters Date Type Department Care Team (Late st Contact Info) Description 11/25/2024 1:15 PM EDT Office Visit [facility] Pulmonology - [address] [place] [address] Mark Love MD [address] [place] [address] documented as of this encounter Visit Diagnoses Not on filedocumented in this encounter Care Teams Strickler Attendant Relationship Specialty Start Date End Date Collette Rendon APRN PCP - General Emergency Medicine 11/21/23 documented as of this encounter
--- OUTSIDE RECORDS SUMMARY | 2024-11-11 10:28 | XMS_ITS | Encounter Summary ---
Author Organization [id number] ([place], [place], [place], [place]) Address [address] [place] [address] Care Team Providers Care Serging Machine Operator Name Role Phone Collette Rendon APRN Primary Care Provider [phone] Encounter Details Date Type Department Care Team (Late st Contact Info) Description 02/24/2020 Transcribed Document [facility] [place] Family [place] [address] ProviderDulce Maria MD [address] [place] [id number] Social History Tobacco Use Types Packs/Day Years Used Date Smoking Tobacco: Never Assessed Sex and Gender Information Value Date Recorded Sex Assigned at Male 10/30/2021 8:44 PM CDT Legal Sex Male 8:44 PM CDT Gender Identity Male 10/30/2021 8:44 PM CDT Sexual Orientation Not on file documented as of this encounter Miscellaneous Notes * Cerner Conversion Note - Historical ProviderMD - 02/24/2020 6:34 AM CDT Admission History, Adult Entered On: 02/24/2020 15:34 EDT Performed On: 02/24/2020 6:34 EDT by CODIE PINEDA RN Advance Directive Patient has Advance Directive *Q : Yes, Advance Directive not with the patient Request Family/Rep to Provide Copy of AD : Yes Advance Directive Type : Living will Copy Advance Directive Verified/on Chart : No CODIE PINEDA RN - 02/24/2020 15:03 EDT Anesthesia/Transfusion History Family History of Anesthesia Reaction : No prior transfusion(s) Blood Transfusion Acceptable to Patient : Yes Transfusion History : Prior anesthesia without reaction Family History of Anesthesia Reaction : None CODIE PINEDA RN - 02/24/2020 15:03 EDT Education Topics, Admission Orientation DCP GENERIC CODE Advance Directives : Verbalizes understanding Allergy Band Applied : Verbalizes understanding Assessment/Vital Signs : Verbalizes understanding Bed Control : Verbalizes understanding Call Light : Verbalizes understanding Confidentiality : Verbalizes understanding Diet/Room Service : Verbalizes understanding Fall Prevention : Verbalizes understanding Hand Hygiene : Verbalizes understanding Healthcare Provider Visit : Verbalizes understanding ID Band Applied : Verbalizes understanding Isolation Precautions : Verbalizes understanding Orientation to Room/Bathroom : Verbalizes understanding Patient Bill of Rights : Verbalizes understanding Patient Rights/Responsibilities : Verbalizes understanding Patient Safety : Verbalizes understanding Personal Privacy Code : Verbalizes understanding Rapid Response Initiated by Patient/Family : Verbalizes understanding Rounding : Verbalizes understanding Siderails use/risks : Verbalizes understanding Skin Precautions : Verbalizes understanding Smoking Policy : Verbalizes understanding Telemetry Monitoring : Verbalizes understanding Television/Phone : Verbalizes understanding Visiting Policy : Verbalizes understanding CODIE PINEDA RN - 02/24/2020 15:03 EDT Functional Assessment Living Situation : Home Patient Lives With : Spouse Persons Assisting Patient at Home : Spouse Current Daily Living Assistance : None Sensory Deficits : None Mobility Assistance Prior to Admission : Independent JARQUIN Hx Falls Immediate/Within 3 Months : No Current Home Treatments : None Home Equipment : None CODIE PINEDA RN - 02/24/2020 15:03 EDT General Info Preferred Name : Hayes Arrived From : Home Mode of Arrival on Unit : Ambulatory Legal Guardian : Spouse Legal Guardian : No Support Person/Patient Geophysical Prospector : Yes Support Person/Pt Rep Name : Heike Reeves - Contact Password : HEIKE Support Person/Pt Rep Contact Information : [phone] w Want Family/Rep/Phys Notified of Admit : No Emergency Contact #1 : Heike Reeves Emergency Contact #1 Emergency Contact #1 Relationship : Emergency Contact #2 : na Emergency Contact #2 Phone Number : na Emergency Contact #2 Relationship : na Information Obtained From : Patient Primary Language : German Communication Barrier : None Top Precipitator Operator Helper Needed : No Objects to Sharing Info w Family : No CODIE PINEDA RN - 02/24/2020 15:03 EDT Fall Risk Scales ABCs Fall Injury Risk Identification : Surgery ABC Fall Injury Risk : Moderate to high injury risk Injury Moderate to High Risk Interventions : Bed alarm on, Specialty low bed, Toileting schedule, Transport methods appropriate to patient, Visual cues in place JARQUIN Hx Falls Immediate/Within 3 Months : No Jarquin Secondary Diagnosis : No JARQUIN Use of Ambulatory Aid : Bed rest/Nurse assist JARQUIN IV Therapy or IV Access : Yes Jarquin Gait/Transferring : Weak Jarquin Mental Status : Oriented to own ability Jarquin Fall Risk Score : 30 JARQUIN Fall Scale Risk Level : 25-45 Medium Risk [place] Fall Interventions : Bed in low position, Fall prevention handout/education per facility policy, Frequent orientation to surroundings, Personal items within reach, Reinforced to call for assistance before getting out of bed, Wheels locked, Wires/Cords secured Fall Moderate to High Risk Interventions : Transport methods appropriate to patient, Toileting schedule, Visual cues in place CODIE PINEDA RN - 02/24/2020 15:03 EDT Fall Risk Education Grid Alarms : Verbalizes understanding Assistive Equipment Use : Verbalizes understanding Bed Height/Stabilization : Verbalizes understanding Call light use : Verbalizes understanding Door Open : Verbalizes understanding Environmental Management : Verbalizes understanding Eyeglasses Use : Verbalizes understanding Fall Community Resources : Verbalizes understanding Fall Contract/Letter : Verbalizes understanding Fall Prevention in the Home : Verbalizes understanding Fall Prevention Protocol : Verbalizes understanding Hearing Aid Use : Verbalizes understanding Home Risk Assessment : Verbalizes understanding Need Constant Observation : Verbalizes understanding Night Light Use : Verbalizes understanding Nonskid Footwear Use : Verbalizes understanding Notification of Staff When Leaving : Verbalizes understanding Orthostatic Hypotension Precautions : Verbalizes understanding Personal Article Availability : Verbalizes understanding Prevention Responsibility Family : Verbalizes understanding Prevention Responsibility Patient : Verbalizes understanding Risk Alert Methods : Verbalizes understanding Risk Factors : Verbalizes understanding Safety Aids : Verbalizes understanding Siderails use/risks : Verbalizes understanding Special Assistive Devices : Verbalizes understanding Staff Responsiveness : Verbalizes understanding Symptom Identification & Action Plan *Q : Verbalizes understanding Symptom Reporting : Verbalizes understanding Toileting Schedule : Verbalizes understanding Transfer/Mobility Techniques : Verbalizes understanding Urinal/Bedpan Availability : Verbalizes understanding Wait for Assistance : Verbalizes understanding Wheelchair Safety : Verbalizes understanding CODIE PINEDA RN - 02/24/2020 15:03 EDT Barriers to Learning : None evident Individuals Taught : Patient Readiness to Learn : Cooperative Highest Level of Education : Some college Baseline Knowledge of Topic : Good Teaching Method : Explanation Learning Style Preferences Family : Verbal explanation Learning Style Preferences Patient : Verbal explanation Teaching Evaluation : Verbalizes understanding Fall Risk Scale Calc Temp : 0 CODIE PINEDA RN - 02/24/2020 15:03 EDT Health Histories Smoking Status : Former smoker, quit more than 30 days ago Smokeless Tobacco Status : Never Implant/Device Type, Machine Joiner Cementer and Model : loop cardiac recorder; cardiac repair of foramen ovale CODIE PINEDA RN - 02/24/2020 15:03 EDT Social History (As Of: 02/24/2020 15:34:41 EDT) Tobacco: Former smoker, quit more than [...] 01/20/2020 09:41:57 EDT by LORENA ORO RN) Home/Environment: Lives with Spouse. Living situation: Home/Independent. (Last Updated: 02/23/2020 12:25:49 EDT by FARRAH ALMARAZ RN) Employment/School: Retired (Last Updated: 02/23/2020 12:25:57 EDT by FARRAH ALMARAZ RN) Height and Weight, Clinical Dosing Height Source : Measured Height Entry Format : [place] Height, Feet : 5 ft(Converted to: 152 cm, 60 Inch) Height, Inches : 6 Inch(Converted to: 0 ft 6 Inch, 15.24 cm) Clinical Height : 167.64 cm Weight Source : Standing scale Weight Entry Format : [place] Clinical Dosing Weight : 60.91 kg Weight, Pounds : 134 lb Weight, Ounces : 0 oz Body Surface Area (BSA) : 1.69 m2 Body Mass Index : 21.7 kg/m2 [place] Body Weight : 63 kg CODIE PINEDA RN - 02/24/2020 15:03 EDT Infectious Disease History Has the patient ever been tested for COVID-19? : Yes, Patient stated results Negative CODIE PINEDA RN - 02/24/2020 16:29 EDT Where was the COVID-19 Testing completed? : [facility] Date of COVID-19 test known? : Yes Date of COVID-19 Test : 02/24/2020 EDT Does patient have symptoms of COVID-19? : No COVID19 Screening : No Experiencing Infectious Disease Symptoms : No symptoms Physical contact outside [place] in the last 30 days : No Infectious Disease History : Chicken pox/Shingles, Influenza, Mononucleosis, Other: pt states had some childhood diseases but unable to recall specifics Active Surveillance Screen Assessment : Patient does not meet any of above criteria Active Surveillance Screen Negative : Yes Childhood Vaccinations Up to Date : N/A Tuberculosis Symptoms : None CODIE PINEDA RN - 02/24/2020 15:03 EDT Tetanus Immunization Status Previous Tetanus Immunizations : No qualifying data available. Tetanus Immunization : None received CODIE PINEDA RN - 02/24/2020 15:03 EDT Influenza Vaccine Asmt, Adult Previous Vaccines from Immunization Schedule : Previous Vaccines and Immunizations influenza virus vaccine, inactivated: 0.5 mL (01/21/20 09:06:00) pneumococcal 13-valent vaccine: 0.5 mL (01/21/20 09:06:00) Influenza Immunization, Current Season : No Inactivated Flu Vaccine Contraindications : No contraindications to inactivated influenza vaccine Transplant Workup/Recent Transplant : No Order for Influenza Vaccine : Declined Vaccination Influenza Vaccine Education Topics : [facility] educational materials provided for patient CODIE PINEDA RN - 02/24/2020 15:03 EDT Pneumococcal Vaccine Previous Vaccines from Immunization Schedule : Previous Vaccines and Immunizations influenza virus vaccine, inactivated: 0.5 mL (01/21/20 09:06:00) pneumococcal 13-valent vaccine: 0.5 mL (01/21/20 09:06:00) Pneumonia Immunization Received : No Pneumococcal Risk Assessment < Age 65 : N/A- Patient 65 years of age or older Pneumococcal Vaccine Contraindications : No contraindications to pneumococcal vaccine Transplant Workup/Recent Transplant : No Order for Pneumococcal Vaccine : Declined Vaccination Pneumococcal Vaccine Education : [facility] educational materials provided for patient CODIE PINEDA RN - 02/24/2020 15:03 EDT Order Details Order Detail : N/A CODIE PINEDA RN - 02/24/2020 15:03 EDT Nutrition History Weight Entry Format Nutrition History : [place] Feeding Ability : Independent Usual Weight, Pounds : 134 lb Adaptive Feeding Equipment : None Clinical Weight Calculated : 60.91 kg Adaptive Feeding Equipment : Regular Oral Medication Administration : By mouth Eating Poorly Due to Decreased Appetite : No Unplanned Weight Loss in Past 3-6 Months : No Malnutrition Screening Tool Total(mal) : 0 Malnutrition Screening Tool Risk Level : Patient not at risk CODIE PINEDA RN - 02/24/2020 15:03 EDT [place] Suicide Severity Rating Scale (C-SSRS) CSSRS Past Month Wish to be : No CSSRS Past Month Suicidal Thoughts : No CSSRS Lifetime Suicide Behavior : No Suicide Severity Rating Score : 0 Suicide Severity Rating : No Additional Care Required at this time CODIE PINEDA RN - 02/24/2020 15:03 EDT Psychosocial History Does Someone Depend on You for Care? : No Chronic/Terminal Illness w/Freq Visits : No Do You Have a History of the Following? : Patient denies history Currently in Unsafe Situation : No Restraining Order Against Another Person : No Do You Have a Support System? : Yes Hospital/DC Financial Concerns : No Stressors Affecting Hospitalization/DC : No CODIE PINEDA RN - 02/24/2020 15:03 EDT Sleep Apnea Risk Assmt Hx of [...] Sleep Apnea Risk Level Score : 2 CODIE PINEDA RN - 02/24/2020 15:03 EDT Spiritual/Cultural Needs Significant Loss/Crisis in Past 3 Years : No Significant Distress/Coping/Need Support : No Any Spiritual/Cultural Needs or Requests : No CODIE PINEDA RN - 02/24/2020 15:03 EDT Valuables and Belongings Valuables and Belongings : Clothing, No comfort items, No jewelry, No personal devices, No personal items, No assistive devices, No respiratory devices, No medications Clothing : Common streetwear Clothing Disposition : Bedside, With patient, Declines to send to security/safe CODIE PINEDA RN - 02/24/2020 15:03 EDT documented in this encounter Plan of Treatment Upcoming Encounters Date Type Department Care Team (Late st Contact Info) Description 11/25/2024 1:15 PM EDT Office Visit [facility] Pulmonology - [address] [place] [id number] Mark Love MD [address] [place] [address] documented as of this encounter Visit Diagnoses Not on filedocumented in this encounter Care Teams Serging Machine Operator Relationship Specialty Start Date End Date Collette Rendon APRN PCP - General Emergency Medicine 11/21/23 documented as of this encounter
--- OUTSIDE RECORDS SUMMARY | 2024-11-11 10:28 | XMS_ITS | Encounter Summary ---
Author Organization [employer] ([place], [place], [place], [place]) Address [address] [place] [address] Care Team Providers Care Field Cane Scale Clerk Name Role Phone Collette Rendon APRN Primary Care Provider [phone] Encounter Details Date Type Department Care Team (Late st Contact Info) Description 02/25/2020 Transcribed Document [facility] Family Medicine [address] [place] [address] ProviderDulce Maria MD [address] [place], [place] [id number] Social History Tobacco Use Types Packs/Day Years Used Date Smoking Tobacco: Never Assessed Sex and Gender Information Value Date Recorded Sex Assigned at Male 10/30/2021 8:44 PM CDT Legal Sex Male 8:44 PM CDT Gender Identity Male 10/30/2021 8:44 PM CDT Sexual Orientation Not on file documented as of this encounter Miscellaneous Notes * Cerner Conversion Note - Dulce Maria ProviderMD - 02/25/2020 1:53 PM CDT Patient Education Materials Follows: Heart-Healthy Eating Plan Heart-healthy meal planning includes: [...] plate with lean protein foods. ??? Eat 4?5 servings of vegetables per day. A serving of vegetables is: ? 1 cup of raw or cooked vegetables. ? 2 cups of raw leafy greens. ??? Eat 4?5 servings of fruit per day. A serving of fruit is: ? 1 medium whole fruit. ? ? cup of dried fruit. ? ? cup of fresh, frozen, or canned fruit. ? ? cup of 100% fruit juice. ??? Eat more foods that have soluble fiber. These are apples, broccoli, carrots, beans, peas, and barley. Try to get 20?30 g of fiber per day. ??? Eat 4?5 servings of nuts, legumes, and seeds per week: ? 1 serving of dried beans or legumes equals ? cup after being cooked. ? 1 serving of nuts is ? cup. ? 1 serving of seeds equals [...] Fats and oils Meat fat, or shortening. [place] butter, hydrogenated oils, palm oil, coconut oil, [...] 10/20/2012 Document Revised: 06/25/2018 Document Reviewed: 05/29/2018 [employer] Patient Education ? 2020 [employer] Femoral Endarterectomy, Care After This sheet [...] and water are not available, use hand virtual recruiter. ? Change your dressing as told by [...] Get up to take short walks every 1?2 hours. Ask for help if you feel [...] medicines you take. General instructions ??? Take bxza-bzp-rjghirr and prescription medicines only as told by [...] fried or sweet foods. ? Take an xyiu-fbs-wrsdykp or prescription medicine for constipation. ??? Wear [...] 07/16/2010 Document Revised: 02/11/2019 Document Reviewed: 03/05/2018 [employer] Patient Education ? 2020 5 CUPS and some sugar. Femoral Endarterectomy Femoral endarterectomy is surgery to [...] including vitamins, herbs, eye drops, creams, and xxhn-yfs-bktdpxn medicines. ??? Any problems you or family [...] tells you to take them. ? Taking ykvv-zdb-srtjgnt medicines, vitamins, herbs, and supplements. Staying hydrated Follow instructions from your health care provider about hydration, which may include: ??? Up to 2 hours before the procedure ? you may continue to drink clear liquids, such as water, clear fruit juice, black coffee, and plain tea. Eating and drinking restrictions Follow instructions from your health care provider about eating and drinking, which may include: ??? 8 hours before the procedure ? stop eating heavy meals or foods such as meat, fried foods, or fatty foods. ??? 6 hours before the procedure ? stop eating light meals or foods, such as toast or cereal. ??? 6 hours before the procedure ? stop drinking milk or drinks that contain milk. ??? 2 hours before the procedure ? stop drinking clear liquids. General instructions ??? [...] 07/16/2010 Document Revised: 01/15/2019 Document Reviewed: 03/05/2018 [employer] Patient Education ? 2020 5 CUPS and some sugar. Cardiovascular Pseudoaneurysm An aneurysm is a bulge in [...] Follow these instructions at home: ??? Take weec-jix-aavlmol and prescription medicines only as told by [...] on its own without treatment. ??? Take ybsy-ktl-kdnzvmh and prescription medicines only as told by [...] 10/07/2008 Document Revised: 01/27/2019 Document Reviewed: 01/27/2019 [employer] Patient Education ? 2020 [employer] Radiology Femoral Site Care This sheet gives you information about how to care for yourself after your procedure. Your health care provider may also give you more specific instructions. If you have problems or questions, contact your health care provider. What can I expect after the procedure? After the procedure, it is common to have: ??? Bruising that usually fades within 1?2 weeks. ??? Tenderness at the site. Follow these instructions at home: Wound care ??? Follow instructions from your health care provider about how to take care of your insertion site. Make sure you: ? Wash your hands with soap and water before you change your bandage (dressing). If soap and water are not available, use hand virtual recruiter. ? Change your dressing as told by [...] bad smell. Activity ??? For the first 2?3 days after your procedure, or as long [...] Get up to take short walks every 1?2 hours. ??? Do not drive for 24 hours if you were given a medicine to help you relax (sedative). General instructions ??? Take ybfe-rrj-nrhvkzh and prescription medicines only as told by [...] to have bruising that usually fades within 1?2 weeks. ??? Check your femoral site every [...] 12/23/2014 Document Revised: 05/04/2018 Document Reviewed: 05/04/2018 [employer] Patient Education ? 2019 [employer] Electronically signed by Elisa Prajapati Conversion Assistant Research Scientist Cerner at 08/21/2022 11:56 AM CDT documented in this encounter Plan of Treatment Upcoming Encounters Date Type Department Care Team (Late st Contact Info) Description 11/25/2024 1:15 PM EDT Office Visit [facility] Pulmonology - [address] [place] [address] Mark Love MD [address] [place] [address] documented as of this encounter Visit Diagnoses Not on filedocumented in this encounter Care Teams Field Cane Scale Clerk Relationship Specialty Start Date End Date Collette Rendon APRN PCP - General Emergency Medicine 11/21/23 documented as of this encounter
--- OUTSIDE RECORDS SUMMARY | 2024-11-11 10:28 | XMS_ITS | Encounter Summary ---
Author Organization [employer] ([place], [place], [place], [place]) Address [address] [place] [address] Care Team Providers Care Adding Machine Servicer Name Role Phone Carolyngeraldobeverley Collette CARUSON Primary Care Provider [phone] Encounter Details Date Type Department Care Team (Late st Contact Info) Description 01/21/2020 Transcribed Document [facility] [place] Family [facility] [place] [address] ProviderDulce Maria MD [address] [place] [id number] Social History Tobacco Use Types Packs/Day Years Used Date Smoking Tobacco: Never Assessed Sex and Gender Information Value Date Recorded Sex Assigned at Male 10/30/2021 8:44 PM CDT Legal Sex Male 8:44 PM CDT Gender Identity Male 10/30/2021 8:44 PM CDT Sexual Orientation Not on file documented as of this encounter Miscellaneous Notes * Cerner Conversion Note - Historical ProviderMD - 01/21/2020 9:49 AM CDT Final Discharge Planning Entered On: 01/21/2020 9:50 EDT Performed On: 01/21/2020 9:49 EDT by LORENA PICKERING Rn-Stock Preparer Final Discharge Planning Discharge Arrangements : Patient Post-Acute Information Patient Name: HAYES MAYS Gender: Male : 51 Age: 69 Years No Post-Acute Placement(s) Listed No Post-Acute Service(s) Listed No [place] Referral(s) Listed Important Medicare Message Reviewed With : Patient Important Medicare Message Reviewed D/T : 01/21/2020 9:45 EDT Follow Up Appointment Scheduled : Yes Is Patient High/Moderate Readmission Risk? : No Discharge To Care Management : Home/Residential/Group Home or Self Care - LORENA PICKERING Rn-Stock Preparer - 01/21/2020 9:49 EDT Final Narrative Note Final Narrative Note : Pt d/c home in care of spouse; no d/c needs identifed; f/u with PCP/specialists as recommended, LRRLORENA POLLARD Rn-Stock Preparer - 01/21/2020 9:49 EDT documented in this encounter Plan of Treatment Upcoming Encounters Date Type Department Care Team (Late st Contact Info) Description 11/25/2024 1:15 PM EDT Office Visit [facility] Pulmonology - [address] [place] [phone] Mark Love MD [address] [place] [address] documented as of this encounter Visit Diagnoses Not on filedocumented in this encounter Care Teams Adding Machine Servicer Relationship Specialty Start Date End Date Collette Rendon APRN PCP - General Emergency Medicine 11/21/23 documented as of this encounter
--- OUTSIDE RECORDS SUMMARY | 2024-11-11 10:28 | XMS_ITS | Encounter Summary ---
Author Organization [employer] ([place], [place], [place], [place]) Address [address] [place] [address] Care Team Providers Care Bootmaker Hand Name Role Phone Kane Rendonannjohn FORBES Primary Care Provider [phone] Encounter Details Date Type Department Care Team (Late st Contact Info) Description 01/21/2020 Transcribed Document [facility] [place] Family Medicine [address] [place] [address] ProviderDulce Maria MD [address] [place] [id number] Social History Tobacco Use Types Packs/Day Years Used Date Smoking Tobacco: Never Assessed Sex and Gender Information Value Date Recorded Sex Assigned at Male 10/30/2021 8:44 PM CDT Legal Sex Male 8:44 PM CDT Gender Identity Male 10/30/2021 8:44 PM CDT Sexual Orientation Not on file documented as of this encounter Miscellaneous Notes * Cerner Conversion Note - Historical ProviderMD - 01/21/2020 9:47 AM CDT Initial Discharge Planning Entered On: 01/21/2020 9:49 EDT Performed On: 01/21/2020 9:47 EDT by LORENA PICKERING, Rosalia-Dry Cans Operator Initial Assessment I Previously Documented Living Environment : No qualifying data available. Living Situation : Home Patient Lives With : Spouse Is the Patient a Caregiver at Home? : No Emergency Contact #1 : Dalton Reeves Emergency Contact #1 Emergency Contact #1 Relationship : Emergency Contact #2 : none Emergency Contact #2 Phone Number : none Emergency Contact #2 Relationship : none Enter Doctors Name : Dinh Ritchie Does Patient have PCP Listed? : Yes Medical Durable Power of See Wheeler Name : Dalton Dash (no copy on file) Legal Guardian : No Is Guardianship Needed : No LORENA PICKERING Rn-Dry Cans Operator - 01/21/2020 9:47 EDT Initial Assessment II Sensory and Motor Deficits : None Current Home Treatments and Equipment : None LORENA PICKERING Rn-Dry Cans Operator - 01/21/2020 9:47 EDT Discharge Needs I Anticipated Discharge Date : 01/21/2020 EDT Anticipated Discharge To, CM : Home with family care Current Home Treatment/Equipment : Current Home Treatment/Equipment No qualifying data available. Documentation Status Complete : Yes LORENA PICKERING Rn-Dry Cans Operator - 01/21/2020 9:47 EDT Discharge Needs II Professional Skilled Services : Professional Skilled Services No qualifying data available. 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 Pt has AD ( HCS - no copy in chart). LORENA PICKERING Rn-Dry Cans Operator - 01/21/2020 9:47 EDT documented in this encounter Plan of Treatment Upcoming Encounters Date Type Department Care Team (Late st Contact Info) Description 11/25/2024 1:15 PM EDT Office Visit [facility] Pulmonology - [address] [place] [address] Mark Love MD [address] [place] [address] documented as of this encounter Visit Diagnoses Not on filedocumented in this encounter Care Teams Bootmaker Hand Relationship Specialty Start Date End Date Collette Rendon APRN PCP - General Emergency Medicine 11/21/23 documented as of this encounter
--- OUTSIDE RECORDS SUMMARY | 2024-11-11 10:28 | XMS_ITS | Encounter Summary ---
Author Organization [employer] ([place], [place], [place], [place]) Address [address] [place] [address] Care Team Providers Care Fabrication Operator Name Role Phone Collette Rendon APRN Primary Care Provider [phone] Encounter Details Date Type Department Care Team (Late st Contact Info) Description 02/24/2020 Transcribed Document [facility] [place] [address] [place] [address] ProviderDulce Maria MD [address] [place] [address] Social History Tobacco Use Types Packs/Day [...] Historical ProviderMD - 02/24/2020 10:50 AM CDT [facility] Main OR Preop Summary Primary Physician: LISA WOOD MD-SUR Finalized Date/Time: 02/24/20 15:36:37 Pt. Name: HAYES MAYS.O.B./Sex: 1950 Male Med Rec #: [id number] Physician: LISA WOOD MD-SUR Financial #: [id number] Pt. Type: I Room/Bed: ASA/4 Admit/Disch: 02/24/20 06:34:00 - Institution: [facility] PreOp Case Times Entry 1 In Preop 02/24/20 08:16:00 Ready for Holding n/a Room Patient Ready for 02/24/20 09:15:00 Surgery Patient Out of Preop 02/24/20 10:21:00 Patient Out of n/a Holding Room Last Modified By: Izzy Angeles RN 02/24/20 15:36:36 [facility] PreOp Case Times Audit 02/24/20 15:36:36 Vamp Wetter: [id number] Modifier: [email or web address] <+> 1 Patient Out of Preop 02/24/20 09:22:58 Vamp Wetter: [id number] Modifier: [email or web address] <+> 1 Patient Ready for Surgery Finalized By: Izzy Angeles, RN Document Signatures Signed By: Izzy Angeles RN 02/24/20 15:36 Electronically signed by Victorina [facility] Conversion Change Analyst Cerner at 08/21/2022 11:54 AM CDT documented in this encounter Plan of Treatment Upcoming Encounters Date Type Department Care Team (Late st Contact Info) Description 11/25/2024 1:15 PM EDT Office Visit [facility] Pulmonology - [address] [place] [address] Makr Love MD [address] [place] [address] documented as of this encounter Visit Diagnoses Not on filedocumented in this encounter Care Teams Fabrication Operator Relationship Specialty Start Date End Date Collette Rendon APRN PCP - General Emergency Medicine 11/21/23 documented as of this encounter
--- OUTSIDE RECORDS SUMMARY | 2024-11-11 10:28 | XMS_ITS | Encounter Summary ---
Author Organization [email or web address] ([place], [place], [place], [place]) Address [address] [place] [address] Care Team Providers Care Remote Sensing Engineer Name Role Phone Carolyngeraldobeverley Collette CARUSON Primary Care Provider [phone] Encounter Details Date Type Department Care Team (Late st Contact Info) Description 02/24/2020 Transcribed Document [facility] [place] Family Medicine [address] [place] [address] ProviderDulce Maria MD [address] [place] [address] Social History Tobacco Use Types Packs/Day Years Used Date Smoking Tobacco: Never Assessed Sex and Gender Information Value Date Recorded Sex Assigned at Male 10/30/2021 8:44 PM CDT Legal Sex Male 8:44 PM CDT Gender Identity Male 10/30/2021 8:44 PM CDT Sexual Orientation Not on file documented as of this encounter Miscellaneous Notes * Cerner Conversion Note - Historical ProviderMD - 02/24/2020 12:02 PM CDT Pain Assessment Entered On: 02/25/2020 2:04 EDT Performed On: 02/25/2020 2:06 EDT by NUPUR HERNANDEZ RN Intervention Information: acetaminophen-HYDROcodone Performed by NUPUR HERNANDEZ RN on 02/25/2020 01:06:00 EDT acetaminophen-HYDROcodone,1Tab Oral,Pain (Mild 1-3) Pain Assessment Pain Assessment : Follow-up assessment Pain Scale Goal : 5 NUPUR HERNNADEZ RN - 02/25/2020 2:04 EDT Electronically signed by Victorina [facility] Conversion Marking Stitcher Cerner at 08/21/2022 12:12 PM CDT documented in this encounter Plan of Treatment Upcoming Encounters Date Type Department Care Team (Late st Contact Info) Description 11/25/2024 1:15 PM EDT Office Visit [facility] Pulmonology - [address] [place] [address] Mark Love MD [address] [place] [address] documented as of this encounter Visit Diagnoses Not on filedocumented in this encounter Care Teams Remote Sensing Engineer Relationship Specialty Start Date End Date Collette Rendon APRN PCP - General Emergency Medicine 11/21/23 documented as of this encounter
--- OUTSIDE RECORDS SUMMARY | 2024-11-11 10:28 | XMS_ITS | Encounter Summary ---
Author Organization [employer] ([place], [place], [place], [place]) Address [address] [place] [address] Care Team Providers Care Matting Press Tender Name Role Phone Carolyngeraldobeverley Collette CARUSON Primary Care Provider [phone] [phone] Encounter Details Date Type Department Care Team (Late st Contact Info) Description 02/24/2020 Transcribed Document [facility] [place] Family Medicine [address] [place] [address] ProviderDulce Maria MD [address] [place] [address] Social History Tobacco Use Types Packs/Day [...] 12:02 PM CDT Pain Assessment Entered On: 02/24/2020 22:31 EDT Performed On: 02/24/2020 22:04 EDT by NUPUR HERNANDEZ RN Intervention Information: acetaminophen-HYDROcodone Performed by NUPUR HERNANDEZ RN on 02/24/2020 21:04:00 EDT acetaminophen-HYDROcodone,2Tab Oral,Pain (Severe 7-10) Pain Assessment Pain Assessment : Follow-up assessment Pain Scale Goal : 5 NUPUR HERNANDEZ RN - 02/24/2020 22:31 EDT Electronically signed by Victorina [facility] Conversion Sap Security Consultant Cerner at 08/25/2022 3:38 PM CDT documented in this encounter Plan of Treatment Upcoming Encounters Date Type Department Care Team (Late st Contact Info) Description 11/25/2024 1:15 PM EDT Office Visit [facility] Pulmonology - [address] [place] [address] Mark Love MD [address] [place] [address] documented as of this encounter Visit Diagnoses Not on filedocumented in this encounter Care Teams Matting Press Tender Relationship Specialty Start Date End Date Collette Rendon APRN PCP - General Emergency Medicine 11/21/23 documented as of this encounter
--- OUTSIDE RECORDS SUMMARY | 2024-11-11 10:28 | XMS_ITS | Encounter Summary ---
Author Organization [employer] ([place], [place], [place], [place]) Address [address] [place] [address] Care Team Providers Care Hand Suture Winder Name Role Phone Collette Rendon APRN Primary Care Provider [phone] Encounter Details Date Type Department Care Team (Late st Contact Info) Description 02/25/2020 Transcribed Document [facility] [place] [facility] [place] [address] ProviderDulce Maria MD [address] [place] [address] Social History Tobacco Use Types Packs/Day Years Used Date Smoking Tobacco: Never Assessed Sex and Gender Information Value Date Recorded Sex Assigned at Male 10/30/2021 8:44 PM CDT Legal Sex Male 8:44 PM CDT Gender Identity Male 10/30/2021 8:44 PM CDT Sexual Orientation Not on file documented as of this encounter Miscellaneous Notes * Cerner Conversion Note - Historical ProviderMD - 02/25/2020 10:22 AM CDT Discharge Summary, PT Entered On: 02/25/2020 10:23 EDT Performed On: 02/25/2020 10:22 EDT by DEANNA FLORES, STUDENT-PHYSICAL THERAPIST Discharge Summary Reason for Discharge : Discharged from hospital Discharged to, Therapy : Home, with family care Discharge Equipment, PT : None DEANNA FLORES, STUDENT-PHYSICAL THERAPIST - 02/25/2020 10:22 EDT Discharge Summary Comment, PT : Pt independent and safe w/ all functional mobility and gait at this time. Skilled physical therapy services not indicated. PT has reviewed and agrees with note. SHAYNA ANDRADE, PT - 02/25/2020 14:51 EDT Functional Status Score (FSS-ICU) Rolling : Independent, complete Supine to Sit : Independent, complete Unsupported Sitting : Independent, complete Sit to Stand : Independent, complete Ambulation FSS-ICU : Independent, complete Total Calculated Score out of 35 FSS-ICU : 35 DEANNA FLORES, STUDENT-PHYSICAL THERAPIST - 02/25/2020 10:22 EDT Electronically signed by [facility] Conversion Director Of Procurement Cerner at 08/21/2022 11:50 AM CDT documented in this encounter Plan of Treatment Upcoming Encounters Date Type Department Care Team (Late st Contact Info) Description 11/25/2024 1:15 PM EDT Office Visit [facility] Pulmonology - [address] [place] [address] Mark Love MD [address] [place] [address] documented as of this encounter Visit Diagnoses Not on filedocumented in this encounter Care Teams Hand Suture Winder Relationship Specialty Start Date End Date Collette Rendon APRN PCP - General Emergency Medicine 11/21/23 documented as of this encounter
--- OUTSIDE RECORDS SUMMARY | 2024-11-11 10:28 | XMS_ITS | Encounter Summary ---
Author Organization [employer] ([place], [place], [place], [place]) Address [address] [place] [address] Care Team Providers Care Ornamental Ironworker Name Role Phone CarolyngeraldobeverleyKaneCollettepaty CARUSON Primary Care Provider [phone] [phone] Encounter Details Date Type Department Care Team (Late st Contact Info) Description 02/25/2020 Transcribed Document [facility] [place] Family [place] [address] ProviderDulce Maria MD [address] [place] [address] Social History Tobacco Use Types Packs/Day Years Used Date Smoking Tobacco: Never Assessed Sex and Gender Information Value Date Recorded Sex Assigned at Male 10/30/2021 8:44 PM CDT Legal Sex Male 8:44 PM CDT Gender Identity Male 10/30/2021 8:44 PM CDT Sexual Orientation Not on file documented as of this encounter Miscellaneous Notes * Cerner Conversion Note - Historical ProviderMD - 02/25/2020 10:45 AM CDT Final Discharge Planning Entered On: 02/25/2020 10:48 EDT Performed On: 02/25/2020 10:45 EDT by LORENA PICKERING Rn-Email Marketing Specialist Final Discharge Planning Discharge Arrangements : Patient Post-Acute Information Patient Name: HAYES MAYS Gender: Male : [birth year] Age: 69 Years No Post-Acute Placement(s) Listed No Post-Acute Service(s) Listed No [place] Referral(s) Listed Important Medicare Message Reviewed D/T : 02/25/2020 10:42 EDT Transportation Needs : Family/Friend Follow Up Appointment Scheduled : Yes Is Patient High/Moderate Readmission Risk? : Yes Moderate Readmission Risk - Home, no home health : Make post-discharge physician appointment within 5-7 days of discharge. Patient/Family Notified of Plan : Yes Support Person/Pt Rep Notified of Plan : Yes Patient/Family Notified : D/C home in care of spouse Is Patient Ready for Discharge? : Yes Physician Notified Patient is Ready for Discharge? : Yes Discharge To Care Management : Home/Residential/[facility] or Self Care -01 Physician Notified of Patient Discharge Comment : Pt discharging home in care of spouse; f/u appt planned; 02 Sat >88% LORENA PICKERING Rn-Email Marketing Specialist - 02/25/2020 10:45 EDT documented in this encounter Plan of Treatment Upcoming Encounters Date Type Department Care Team (Late st Contact Info) Description 11/25/2024 1:15 PM EDT Office Visit [facility] Pulmonology - [address] [place] [address] Mark Love MD [address] [place] [address] documented as of this encounter Visit Diagnoses Not on filedocumented in this encounter Care Teams Ornamental Ironworker Relationship Specialty Start Date End Date Collette Rendon APRN PCP - General Emergency Medicine 11/21/23 documented as of this encounter
--- OUTSIDE RECORDS SUMMARY | 2024-11-11 10:28 | XMS_ITS | Encounter Summary ---
Author Organization [employer] ([place], [place], [place], [place]) Address [address] [place] [address] Care Team Providers Care Business Transformation Manager Name Role Phone Collette Rendon APRN Primary Care Provider [phone] Encounter Details Date Type Department Care Team (Late st Contact Info) Description 02/24/2020 Transcribed Document [facility] [place] [address] ProviderDulce Maria MD [address] [place] [address] Social History Tobacco Use Types Packs/Day [...] Historical ProviderMD - 02/24/2020 12:02 PM CDT Evaluation, Physical Therapy Entered On: 02/25/2020 10:01 EDT Performed On: 02/25/2020 9:56 EDT by DEANNA FLORES, STUDENT-PHYSICAL THERAPIST General Information, PT Visit Type, PT : Initial evaluation Patient Orders : Order Date Order Ordering 02/24/2020 12:02 PT Evaluation and Treatment Ordered By: WILMAN DEVRIES PA Active Diagnoses : No Qualifying Diagnoses Therapy Diagnosis, PT : Pt independent, no skilled needs. 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 w/ bovine patch angioplasty DEANNA FLORES STUDENT-PHYSICAL THERAPIST - 02/25/2020 10:03 EDT General Status Patient Received Status : Supine in bed SHAYNA ANDRADE, PT - 02/25/2020 14:47 EDT Treatment Start Time : 02/25/2020 9:05 EDT DEANNA FLORES STUDENT-PHYSICAL THERAPIST - 02/25/2020 10:03 EDT Patient Left Status : Up in chair, Family/Visitors at bedside, Communication board completed, All needs met and within reach SHAYNA ANDRADE, PT - 02/25/2020 14:47 EDT Treatment End Time : 02/25/2020 9:25 EDT Treatment Time : 20 Minute(s) DEANNA FLORES STUDENT-PHYSICAL THERAPIST - 02/25/2020 10:03 EDT History and Environment Living Situation, Therapy : Home Patient Lives With : Spouse Persons Assisting Patient at Home : Spouse Professional Skilled Services : None Persons Providing Information : Patient Home Equipment Therapy, PT : None Home Setup : Other: Trilevel Laundry Room Location : Other: 2nd level Bedroom Location : Other: 3rd level Stairs : Yes Stair Location(s) : Inside Inside Stairs, Number of Steps : 6 DEANNA FLORES STUDENT-PHYSICAL THERAPIST - 02/25/2020 10:03 EDT Prior Level of Function PT GRID Prior LOF Ambulation, Household : Independent Prior LOF Ambulation, Community : Independent Prior LOF Bed Mobility : Independent Prior LOF Toileting : Independent Prior LOF Transfer : Independent DEANNA FLORES STUDENT-PHYSICAL THERAPIST - 02/25/2020 10:03 EDT Prior LOF Assist with ADL Comment : Pt independent w/ all ADL's prior. DEANNA FLORES STUDENT-PHYSICAL THERAPIST - 02/25/2020 10:03 EDT Intervention Summary Heart Rate/Pulse Pre-intervention : 78 bpm BP Systolic Pre-intervention : 112 mmHg BP Diastolic Pre-intervention : 88 mmHg O2 Pre-Intervention : 1L SpO2 Pre-Intervention : 97 % O2 During Intervention : Room air Therapist Assessment During Intervention : Ninoskamelly Valerio stated it was ok to take off supplemental O2 during treatment. Heart Rate/Pulse Post-intervention : 79 bpm BP Systolic Post-intervention : 94 mmHg BP Diastolic Post-intervention : 60 mmHg O2 Post-Intervention : 1L SpO2 Post-Intervention : 79 % Pt Stated Response Post-intervention : Pt's O2 sat normalized after sitting to 93% DEANNA FLORES STUDENT-PHYSICAL THERAPIST - 02/25/2020 10:03 EDT Upper Extremity Right UE Active ROM : WF Right UE Strength : WF Right UE Strength : WFL DEANNA FLORES, STUDENT-PHYSICAL THERAPIST - 02/25/2020 10:03 EDT Right Upper Extremity MMT Shoulder Flexion 0-180 : 5/normal Elbow Flexion 0-150 : 5/normal Elbow Extension 0-0 : 5/normal DEANNA FLORES STUDENT-PHYSICAL THERAPIST - 02/25/2020 10:03 EDT Hand Manager Biologics Test : WNL on Rt Upper Extremity Comment : ROM/MMT of LUE held secondary to arterial line. DEANNA FLORES STUDENT-PHYSICAL THERAPIST - 02/25/2020 10:03 EDT Lower Extremity RLE Active ROM : WFL DEANNA FLORES, STUDENT-PHYSICAL THERAPIST - 02/25/2020 10:03 EDT Right Lower Extremity MMT Hip Flexion (0-125) : 5/normal Knee Flexion (0-140) : 5/normal Knee Extension (0-0) : 5/normal Ankle Dorsiflexion (0-20) : 5/normal Ankle Plantarflexion (0-45) : 5/normal DEANNA FLORES STUDENT-PHYSICAL THERAPIST - 02/25/2020 10:03 EDT Lower Extremity Comment : ROM/MMT testing of LLE held secondary to femoral endarectomy. SHAYNA ANDRADE, PT - 02/25/2020 14:47 EDT Functional Mobility Mobility Grid Bed Roll Left : Rehab Complete independence Bed Scooting : Rehab Complete independence Supine to Sit : Rehab Complete independence Sit to Stand : Rehab Complete independence Stand to Sit : Rehab Complete independence DEANNA FLORES, STUDENT-PHYSICAL THERAPIST - 02/25/2020 10:03 EDT Sit to Stand Device : Belt, gait, Walker, front wheel (Comment: Walker was present, but Pt did not use UE's to propel self upwards. [DEANNA FLORES STUDENT-PHYSICAL THERAPIST - 02/25/2020 10:03 EDT] ) Stand to Sit Device : None DEANNA FLORES STUDENT-PHYSICAL THERAPIST - 02/25/2020 10:03 EDT Functional Status Score (FSS-ICU) Rolling : Independent, complete Supine to Sit : Independent, complete Unsupported Sitting : Independent, complete Sit to Stand : Independent, complete Ambulation FSS-ICU : Independent, complete Total Calculated Score out of 35 FSS-ICU : 35 DEANNA FLORES STUDENT-PHYSICAL THERAPIST - 02/25/2020 10:03 EDT Gait Training/Assessment, PT Weight Bearing Order Status : FWB Gait Assistance Level : Independent, complete Walking Distance : 320` Ambulatory Devices : Gait belt, Walker, front wheel (Comment: Used for `10 ft to ensure Pt safety. Discontinued when Pt deemed safe w/o it. [DEANNA FLORES STUDENT-PHYSICAL THERAPIST - 02/25/2020 10:03 EDT] ) Gait Deviations : No DEANNA FLORES STUDENT-PHYSICAL THERAPIST - 02/25/2020 10:03 EDT Cognition Assessment, PT Orientation : Oriented x 4 Attention Assessment : Present DEANNA FLORES STUDENT-PHYSICAL THERAPIST - 02/25/2020 10:03 EDT Edu Topics Physical Therapy Education Grid Gait Training : Verbalizes understanding, Returns demonstration Role of Physical Therapy : Verbalizes understanding, Returns demonstration Safety : Verbalizes understanding, Returns demonstration Transfer Training : Verbalizes understanding, Returns demonstration DEANNA FLORES STUDENT-PHYSICAL THERAPIST - 02/25/2020 10:03 EDT Indication Assesessment, PT Potential Barriers To Therapy : None evident Rehabilitation Potential : At prior level of function SHAYNA ANDRADE, PT - 02/25/2020 14:47 EDT Physical Therapy Indicated : No Physical Therapy Not Indicated : Independent, complete DEANNA FLORES STUDENT-PHYSICAL THERAPIST - 02/25/2020 10:03 EDT Plan of Care, PT PT Tx Plan/Goals Established w Patient : No Reason Tx/Plan Not Established W/ Pt PT : Pt is independent w/ all functional mobility and gait. PT Frequency Rehab : Discontinue DEANNA FLORES STUDENT-PHYSICAL THERAPIST - 02/25/2020 10:03 EDT Treatment Note Subjective Comment : Pt agreed to physical therapy treatment and nursing Iman authorized. Additional Objective Information : Pt demonstrated static/dynamic sitting balance as evidenced by sitting at the edge of bed w/o assistance during ROM/MMT testing. Assessment : Pt is currently independent and safe w/ all functional mobility and gait, and demonstrates WNL strength/ROM of his Rt UE/LE. Pt deemed to be at PLOF post surgery and set to be discharged from the hospital later this afternoon. Skilled phsyical therapy services not indicated at this time. DEANNA FLORES STUDENT-PHYSICAL THERAPIST - 02/25/2020 10:03 EDT Plan for Treatment : d/c PT treatment. PT has reviewed and agrees with note. SHAYNA ANDRADE, PT - 02/25/2020 14:47 EDT Pain Assessment Pain Score Pre-Intervention : 2 Location : Back DEANNA FLORES STUDENT-PHYSICAL THERAPIST - 02/25/2020 10:03 EDT Image 1 - Images currently included in the form version of this document have not been included in the text rendition version of the form. Anticipated Discharge Needs, OT/PT Anticipated Discharge to : Home, with family care Recommend Continued Therapy at Discharge : No SHAYNA ANDRADE, PT - 02/25/2020 14:[address] [facility] PT Charges PT Eval Low Complexity : 1 DEANNA FLORES STUDENT-PHYSICAL THERAPIST - 02/25/2020 10:03 EDT documented in this encounter Plan of Treatment Upcoming Encounters Date Type Department Care Team (Late st Contact Info) Description 11/25/2024 1:15 PM EDT Office Visit [facility] Pulmonology - [address] [place] [address] Mark Love MD [address] [place] [address] documented as of this encounter Visit Diagnoses Not on filedocumented in this encounter Care Teams Business Transformation Manager Relationship Specialty Start Date End Date Bethbeverley Collette, LEIDY PCP - General Emergency Medicine 11/21/23 documented as of this encounter
--- OUTSIDE RECORDS SUMMARY | 2024-11-11 10:28 | XMS_ITS | Encounter Summary ---
Author Organization [employer] ([place], [place], [place], [place]) Address [address] [place] [address] Care Team Providers Care Salesperson Toy Trains And Accessories Name Role Phone Collette Rendon LEIDY Primary Care Provider [phone] Encounter Details Date Type Department Care Team (Late st Contact Info) Description 02/24/2020 Transcribed Document [facility] Radiology [address] [place] [address] [place] [address] [place] [address] Social History Tobacco Use Types Packs/Day Years Used Date Smoking Tobacco: Never Assessed Sex and Gender Information Value Date Recorded Sex Assigned at Male 10/30/2021 8:44 PM CDT Legal Sex Male 8:44 PM CDT Gender Identity Male 10/30/2021 8:44 PM CDT Sexual Orientation Not on file documented as of this encounter Miscellaneous Notes * Cerner Conversion Note - Armond Shell MD - 02/24/2020 10:14 AM EDT Patient: HAYES MAYS Age: 69 years Sex: Male : 1950 Associated Diagnoses: None Author: JACLYN CASAS APRN Chief Complaint PAD Review of Systems ROS reviewed as documented in chart no change since last seen by surgeon Health Status Allergies: Allergic Reactions (Selected) No Known Medication Allergies, Allergies (1) Active Reaction No Known Medication Allergies None Documented Current medications: (Selected) Inpatient Medications Ordered Ancef: 2 Gram, 50 mL, 100 mL/Hr, IV Piggyback, PREOP Lactated Ringers Injection intravenous solution 1,000 mL: 20 mL/Hr, IntraVENous Documented Medications Documented Bevespi Aerosphere 9 mcg-4.8 mcg/inh inhalation aerosol: 2 Puff, Inhalation, BID, 0 Refill(s) Ventolin HFA 90 mcg/inh inhalation aerosol: 2 Puff, Inhalation, Q6H, PRN: for wheezing, 0 Refill(s) aspirin 81 mg oral tablet: 1 Tab, Oral, Daily, 30 Tab, 0 Refill(s) atorvastatin 80 mg oral tablet: 1 Tab, Oral, At Bedtime, 0 Refill(s), Home Medications (4) Active aspirin 81 mg oral tablet 1 Tab, Oral, Daily atorvastatin 80 mg oral tablet 80 mg = 1 Tab, Oral, At Bedtime Bevespi Aerosphere 9 mcg-4.8 mcg/inh inhalation aerosol 2 Puff, Inhalation, BID Ventolin HFA 90 mcg/inh inhalation aerosol 2 Puff, PRN, Inhalation, Q6H , Medications (2) Active Scheduled: (1) ceFAZolin/D5w 2 Gram 50 mL, IV Piggyback, PREOP Continuous: (1) lactated ringers 1,000 mL 1,000 mL, IntraVENous, 20 mL/Hr PRN: (0) Problem list: All Problems Pseudoaneurysm femoral / SNOMED CT 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 Patent foramen ovale -repaired / SNOMED CT 054242915 / Confirmed Lung nodule / SNOMED CT 0649805507 / Confirmed H/O: stroke 01/2019- word finding problems / SNOMED CT 4128004023 / Confirmed Cyst of left kidney / SNOMED CT 5576578502 / Confirmed COPD (chronic obstructive pulmonary disease) / SNOMED CT 03056483 / Confirmed At risk for sleep apnea / IMO [id number] / Confirmed Abdominal aortic aneurysm / SNOMED CT 804556682 / Confirmed, Active Problems (8) Abdominal aortic aneurysm At risk for sleep apnea COPD (chronic obstructive pulmonary disease) Cyst of left kidney H/O: stroke 01/2019- word finding problems Lung nodule Patent foramen ovale -repaired Pseudoaneurysm femoral PAD Histories Past Medical History: No active or resolved past medical history items have been selected or recorded. Family History: No family history items have been selected or recorded. Procedure history: repair of patent foramen ovale. loop cardiac monitoring placement. aneurysm abdominal aortic repair. Physical Examination VS/Measurements Vital Signs/Vital Measures 02/24/2020 8:00 EDT Blood Pressure Location Arm, right upper Blood Pressure Source Non-Invasive BP Device Blood Pressure Position Supine Systolic Blood Pressure 132 mmHg Diastolic Blood Pressure 79 mmHg Temperature Source Temporal artery scanning Temperature Mode Fahrenheit Temperature, Fahrenheit 97.2 Deg F Clinical Temperature, C 36.2 Deg C Pulse Method Pulse Oximetry Peripheral Pulse Rate 74 bpm Respiratory Rate 14 Breaths/Min Oxygen Saturation 99 % Oxygen Therapy Mode Room air 02/23/2020 12:20 EDT Blood Pressure Location Arm, right upper Blood Pressure Source Non-Invasive BP Device Blood Pressure Position Sitting Systolic Blood Pressure 145 mmHg HI Diastolic Blood Pressure 83 mmHg Temperature Source Temporal artery scanning Temperature Mode Fahrenheit Temperature, Fahrenheit 98.4 Deg F Clinical Temperature, C 36.9 Deg C Pulse Method Pulse Oximetry Peripheral Pulse Rate 71 bpm Respiratory Rate 18 Breaths/Min Oxygen Saturation 98 % Oxygen Therapy Mode Room air , Vitals Signs (last 24 hrs) Last Charted Minimum Maximum Temp 97.2 (FEB 23 08:00) 97.2 (FEB 23 08:00) 98.4 (FEB 22:20) Periph HR 74 (FEB 23 08:00) 71 (FEB 22 12:20) 74 (FEB 23 08:00) Resp Rate 14 (FEB 23 08:00) 14 (FEB 23 08:00) 18 (FEB 22 12:20) SBP 132 (FEB 23 08:00) 132 (FEB 23 08:00) H 145 (FEB 22 12:20) DBP 79 (FEB 23 08:00) 79 (FEB 23 08:00) 83 (FEB 22 12:20) SpO2 99 (FEB 23 08:00) 98 (FEB 22 12:20) 99 (FEB 23 08:00) , Measurements from flowsheet : Measurements 02/23/2020 12:20 EDT Height Source Measured Height Entry Format [place] Height/Length, AZERBAIJANI (ft) 5 ft Height/Length AZERBAIJANI 6 Inch CLINICALHEIGHT 167.64 cm [place] Body Weight 63 kg Weight Source Standing scale Weight Entry Format [place] Weight [place] lb 134 lb Weight [place] oz 0 oz CLINICALWEIGHT 60.91 kg Body Surface Area (BSA) 1.69 m2 Body Mass Index 21.7 kg/m2 General: Alert and oriented, No acute distress. Eye: Pupils are equal, round and reactive to light, Extraocular movements are intact, glasses. HENT: Normocephalic, Normal hearing. Neck: Supple, Non-tender. Respiratory: Respirations are non-labored, decreased throughout. Cardiovascular: Normal rate, Regular rhythm, No murmur, No gallop, No edema. Gastrointestinal: Soft, Non-tender. Genitourinary: No costovertebral angle tenderness. Lymphatics: No lymphadenopathy neck, axilla, groin. Musculoskeletal: Normal range of motion, Normal strength. Integumentary: Warm, Dry, [place]. Neurologic: Alert, Oriented. Psychiatric: Cooperative, Appropriate mood & affect. Review / Management Results review: Labs (Last four charted values) WBC 6.6 (FEB 22) HB 13.7 (FEB 22) HCT 42.7 (FEB 22) Plt 192 (FEB 22) Na 138 (FEB 22) K 4.2 (FEB 22) Cl 105 (FEB 22) CO2 31 (FEB 22) BUN 21 (FEB 22) Cr 0.70 (FEB 22) Glu R 79 (FEB 22) Ca 8.8 (FEB 22) PT 10.5 (FEB 22) INR 1.0 (FEB 22) , Lab results 02/23/2020 12:46 EDT ABO/Rh A POS Antibody Screen Negative ABSC 02/23/2020 12:44 EDT Sodium Level 138 mmol/L Potassium Level 4.2 mmol/L Chloride Level 105 mmol/L Carbon Dioxide Level 31 mmol/L Anion Gap 6 LOW Glucose Level 79 mg/dL Blood Urea Nitrogen 21 mg/dL CREATININE 0.70 mg/dL eGFR >60 mL/min/1.73m2 eGFR NonAfrican >60 mL/min/1.73m2 Bun/Creatinine 30.0 HI Calcium Level 8.8 mg/dL WBC 6.6 K/uL RBC 4.63 Million/uL Hgb 13.7 g/dL Hct 42.7 % MCV 92.2 fL MCH 29.6 pg MCHC 32.1 Gram/dL LOW Platelet Count 192 K/uL MPV 9.6 fL RDW 13.7 % Neut % 63.6 % Neut # 4.19 K/uL Lymph % 23.4 % Lymph # 1.54 x10(3)/uL Leslie % 9.3 % HI Leslie # 0.61 K/uL Eos % 2.6 % Eos # 0.17 x10(3)/uL Baso % 0.8 % Baso # 0.05 x10(3)/uL Slide Review No IG# 0.02 x10(3)/uL IG% 0.30 % PT 10.5 Second(s) INR 1.0 . Impression and Plan Condition: Stable. documented in this encounter Plan of Treatment Upcoming Encounters Date Type Department Care Team (Late st Contact Info) Description 11/25/2024 1:15 PM EDT Office Visit [facility] Pulmonology - [address] [place] [id number] Mark Love MD [address] [place] [address] documented as of this encounter Visit Diagnoses Not on filedocumented in this encounter Care Teams Salesperson Toy Trains And Accessories Relationship Specialty Start Date End Date Collette Rendon APRN PCP - General Emergency Medicine 11/21/23 documented as of this encounter
--- OUTSIDE RECORDS SUMMARY | 2024-11-11 10:28 | XMS_ITS | Encounter Summary ---
Author Organization [employer] ([place], [place], [place], [place]) Address [address] [place] [address] Care Team Providers Care Junior Java Developer Name Role Phone Collette Rendon APRN Primary Care Provider [phone] Encounter Details Date Type Department Care Team (Late st Contact Info) Description 01/21/2020 Transcribed Document [facility] [place] [address] [place] [address] ProviderDulce Maria MD [address] [place] [address] Social History Tobacco Use Types Packs/Day Years Used Date Smoking Tobacco: Never Assessed Sex and Gender Information Value Date Recorded Sex Assigned at Male 10/30/2021 8:44 PM CDT Legal Sex Male 8:44 PM CDT Gender Identity Male 10/30/2021 8:44 PM CDT Sexual Orientation Not on file documented as of this encounter Miscellaneous Notes * [employer]ner Conversion Note - Historical ProviderMD - 01/21/2020 11:22 AM CDT UM Authorization Entered On: 01/21/2020 11:22 EDT Performed On: 01/21/2020 11:22 EDT by LINDSEY FERRARA RN Primary Insurance Authorization Authorization and Policy Numbers : Insurance 1 Health Plan: MEDICARE Policy Number: [id number] Authorization Number: Insurance 2 Health Plan: [facility] Policy Number: [id number] Authorization Number: NPR Insurance Primary Name : MEDICARE Policy Number: [id number] Authorized Service Begin Date-Primary : 01/20/2020 EDT Historical Authorization Comments-Primary : No Authorization Comments Found LINDSEY FERRARA RN - 01/21/2020 11:22 EDT Electronically signed by Victorina [facility] Conversion Software Quality Assurance Analyst Cerner at 08/21/2022 11:54 AM CDT documented in this encounter Plan of Treatment Upcoming Encounters Date Type Department Care Team (Late st Contact Info) Description 11/25/2024 1:15 PM EDT Office Visit [facility] Pulmonology - [address] [place] [phone] Mark Love MD [address] [place] [address] documented as of this encounter Visit Diagnoses Not on filedocumented in this encounter Care Teams Junior Java Developer Relationship Specialty Start Date End Date Collette Rendon, MATERIALS INSPECTOR PCP - General Emergency Medicine 11/21/23 documented as of this encounter
--- OUTSIDE RECORDS SUMMARY | 2024-11-11 10:28 | XMS_ITS | Encounter Summary ---
Author Organization [employer] ([place], [place], [place], [place]) Address [address] [place] [address] Care Team Providers Care Balance Truing Inspector Name Role Phone Collette Rendon APRN Primary Care Provider [phone] Encounter Details Date Type Department Care Team (Late st Contact Info) Description 01/21/2020 Transcribed Document [facility] [place] [facility] [place] [address] ProviderDulce Maria MD [address] [place] [address] Social History Tobacco Use Types Packs/Day [...] Maria ProviderMD - 01/21/2020 10:19 AM CDT [facility] [place] [address] HAYES MAYS :1950 Visit Time:01/20/2020 [...] Follow-Up Appointments Follow Up with CARL[facility] When Within 5 to 7 days Where: [facility] [place] [address]- Medications What How Much When Instructions Next Dose acetaminophen-hydrocodone ([place] 7.5 mg-325 mg oral tablet) 1 Tablet(s) [...] to person. It???s important to note that ufzdeq-cm-cumouv spread can happen on a continuum. Some [...] least 20 seconds. Use an alcohol-based hand developer programmer analyst that contains at least 60% alcohol if [...] clean your hands with an alcohol-based hand developer programmer analyst that contains at least 60 to 95% [...] clean your hands with an alcohol-based hand developer programmer analyst that contains at least 60% alcohol, covering [...] isolation precautions should be made on a jtgw-ei-tebf basis, in consultation with healthcare providers and state and [facility] health departments. For more information: HYPERLINK [...] and water are not available, use hand developer programmer analyst. ? Change your dressing as told by [...] Getting regular exercise. General instructions ??? Take jdxc-kbs-jeopnkf and prescription medicines only as told by [...] 11/08/2005 Document Revised: 04/03/2018 Document Reviewed: 07/15/2016 [employer] Patient Education ?? 2020 [employer]. Emergency Awareness and Preventative Care STROKE is [...] Assistance with quitting is available by contacting 7-232-IMGB-NOW. This is a free resource providing counseling, [...] range between ( 0.0 and 7.0 ) [place] #: 0.57 K/uL -- Normal range between ( 0.16 and 1.00 ) [place] #: 0.24 x10(3)/uL -- Normal range between ( 0.00 and 0.80 ) [place] %: 7.5 % -- Normal range between [...] was given the opportunity to ask questions. Patient/Door Attendant Name: Patient/Door Attendant Signature: Relationship to Patient: Clinician/Hospital Door Attendant Signature: Date: documented in this encounter Plan of Treatment Upcoming Encounters Date Type Department Care Team (Late st Contact Info) Description 11/25/2024 1:15 PM EDT Office Visit [facility] Pulmonology - [address] [place] [address] Mark Love MD [address] [place] [address] documented as of this encounter Visit Diagnoses Not on filedocumented in this encounter Care Teams Balance Truing Inspector Relationship Specialty Start Date End Date Collette Rendon APRN PCP - General Emergency Medicine 11/21/23 documented as of this encounter
--- OUTSIDE RECORDS SUMMARY | 2024-11-11 10:28 | XMS_ITS | Encounter Summary ---
Author Organization [employer] ([place], [place], [place], [place]) Address [address] [place] [address] Care Team Providers Care Associate Software Developer Name Role Phone Collette Rendon APRN Primary Care Provider [phone] Encounter Details Date Type Department Care Team (Late st Contact Info) Description 02/24/2020 Transcribed Document [facility] Family Medicine [address] [place] [address] ProviderDulce Maria MD [address] [place] [address] Social History Tobacco Use Types Packs/Day [...] Historical ProviderMD - 02/24/2020 10:50 AM CDT [facility] Main OR PACU Summary Primary Physician: LISA WOOD MD-SUR Finalized Date/Time: 02/24/20 14:25:25 Pt. Name: HAYES MAYS.O.B./Sex: 1950 Male Med Rec #: [id number] Physician: LISA WOOD MD-SUR Financial #: [id number] Pt. Type: I Room/Bed: ASA/4 Admit/Disch: 02/24/20 06:34:00 - Institution: [facility] Main OR PACU I Case Times Entry 1 In PACU I 02/24/20 12:36:00 Ready for PACU 02/24/20 13:36:00 Discharge Discharge from PACU 02/24/20 14:20:00 I Last Modified By: MATHEW CORTEZ 02/24/20 14:25:17 Finalized By: MATHEW CORTEZ Document Signatures Signed By: MATHEW CORTEZ 02/24/20 14:25 Electronically signed by [facility] Conversion Auxiliary Power Equipment Operator Cerner at 08/21/2022 12:15 PM CDT documented in this encounter Plan of Treatment Upcoming Encounters Date Type Department Care Team (Late st Contact Info) Description 11/25/2024 1:15 PM EDT Office Visit [facility] Pulmonology - [address] [place] [address] Mark Love MD [address] [place] [address] documented as of this encounter Visit Diagnoses Not on filedocumented in this encounter Care Teams Associate Software Developer Relationship Specialty Start Date End Date Collette Rendon APRN PCP - General Emergency Medicine 11/21/23 documented as of this encounter
== END 2024-11-11 23:59 | disposition home or self-care (01) ==
LOC: RAD 10:21
PROVIDERS: PCP Nurse Practitioner; Visit Provider Nurse Practitioner
DX: C34.90 Malignant neoplasm of unspecified part of unspecified bronchus or lung (principal); N28.1 Cyst of kidney, acquired; N20.0 Calculus of kidney; Z87.891 Personal history of nicotine dependence; Z13.9 Encounter for screening, unspecified
CPT/HCPCS: 71271

== ENCOUNTER 2025-02-14 08:31 | Inpatient (IN) | payer MEDICARE, BC, SELFPAY ==
--- OUTSIDE RECORDS SUMMARY | 2025-01-05 11:00 | XMS_ITS | Encounter Summary ---
Author Organization Healthcare Address [address] [place] [address] Care Team Providers Care Fur Trimmer Name Role Phone Dinh Ritchie MD Primary Care Provider [phone] Encounter Details Date Type Department Care Team (Latest Contact Info) Description 01/05/2025 11:00 AM EDT Office Visit [facility] Re[facility] [address] [place] [id number] Jared Kumar Stage 4 very severe COPD by GOLD classification (CMS/HCC) (Primary Dx); Physical deconditioning Social History Tobacco Use Types Packs/Day Years [...] on file documented as of this encounter Last Filed Vital Signs Vital Sign Reading Time Taken Comments Blood Pressure 144/74 01/05/2025 12:00 PM EDT Pulse 93 01/05/2025 12:00 PM EDT Temperature - - Respiratory Rate - - Oxygen Saturation 95% 01/05/2025 12:00 PM EDT Inhaled Oxygen Concentration - - Weight - - Height - - Body Mass Index - - documented in this encounter Miscellaneous Notes * Assessment & Plan Note - Jared Kumar - 01/05/2025 11:00 AM EDTAssociated Problem(s): Stage 4 very severe COPD by GOLD classification (CMS/HCC) Orders: PT eval and treat * Assessment & Plan Note - Jared Kumar - 01/05/2025 11:00 AM EDTAssociated Problem(s): Physical deconditioning Orders: PT eval and treat * Progress Notes - Jared Kumar - 01/05/2025 11:00 AM EDT Physical Therapy Assessment Patient Name: Hayes Mays Today's Date: 01/05/2025 Diagnosis Codes: Assessment & Plan Stage 4 very severe COPD by GOLD classification ([facility]) Orders: PT eval and treat Physical deconditioning Orders: PT eval and treat Problem List[1] Past Medical History[2] Surgical History[3] Hayes Mays is a 74 y.o. male referred to pulmonary rehab secondary to worsening dyspnea on exertion related to COPD GOLD IV. PMH significant for: h/o L MCA stroke; h/o cryptogenic stroke; h/o infrarenal AAA. Surgical history significant for: AAA repair in 2019; PFO closure in 2018; L common femoral endarterectomy 2019. Smoking History 35 year history; quit 8 years ago. Activity History Pt reports that he continues to try to stay active with lawn work and housekeeping tasks but once took me 10 minutes now takes an hour due to shortness of breath and fatigue. Reports 2 episodes of severe breathlessness within the last few months that required him to assume quadruped position to re gain breath. Reports that he was very active until about 61 years old with exercise but has not exercised much since that time due COPD symptoms. Suicide Screen Suicide risk assessment performed; negative screening. Subjective/Patient Goal Avoid being on oxygen . General General Time In: 1100 Time Out: 1145 Prior Function Receives Help From: No assist required prior to admission, Spouse (as needed) Level of Mobility: Ambulatory- community Mobility [place]: Independent gait without device History of Falls: No ADL Performance: Independent Social History Social History Lives With: Spouse DME: (none) Ramp: No Steps/Stairs: Yes Steps Within the Home: 8 (one set of 8 steps to reach bedroom; one set of 8 steps to reach laundry room) Steps to Enter Home: 0 Family Support: Groceries, Cooking, Laundry (as needed) Hobbies: reading; going out to eat Vital Signs Resting Vital Signs Pulse: 68 SpO2: 95 % Supplemental Oxygen : Room Air BP: 132/78 Dyspnea Index: 1 Breathing Assessment Breathing Assessment Breathing Assessment: minor wheeze; increased work of breathing Pain Pain Pain Assessment: Patient denies pain Modified [employer] [place] Dyspnea Scale 4/4 Sensation Sensation Sensation Assessment: Other(comments) (increased LE swelling occasionally that results in some numbness; otherwise normal) Extremity Assessments Upper Extremity Assessment Strength: 4-/5 gross shoulder strength BL; 4+/5 gross elbow strength BL Range of Motion: WNL Lower Extremity Assessment Strength: 4+/5 gross knee strength BL; 4/5 gross ankle strength BL; 4/5 gross hip strength BL Range of Motion: WNL Ambulation Ambulation Ambulation: Yes Ambulation Device : No device Apparatus : None Assistance : Independent Posture Postural Assessment Postural Control: Forward head, Increased thoracic kyphosis Gait Gait Assessment Gait Assessment: Gait deficits Gait Deficits: decreased gait speed; increased trunk flexion Post-Activity Vital Signs Post-Activity Vital signs Pulse: 73 SpO2: 92 % Supplemental Oxygen : Room Air Functional Assessments Six Minute Walk Test Six Minute Walk Test: Yes Heart Rate: 93 SpO2: 95 % Supplemental Oxygen : 3 LPM N/C (32% FiO2) BP: (!) 144/74 Exercise Dyspnea: 5 Rate of Percieved Exertion: 4 Symptoms: dyspnea; fatigue Minute 1 Pulse: 99 BPM SPO2: 92 % Supplemental Oxygen : Room Air Minute 2 Pulse: 102 BPM SPO2: 86 % Supplemental Oxygen : 2 LPM N/C (28% FiO2) (increased flow to 2L due to desaturation) Minute 3 Pulse: 92 BPM SPO2: 91 % Supplemental Oxygen : 3 LPM N/C (32% FiO2) (increased to 3L due to continued sats 85-86%) Minute 4 Pulse: 95 BPM SPO2: 92 % Supplemental Oxygen : 3 LPM N/C (32% FiO2) Minute 5 Pulse: 96 BPM SPO2: 94 % Supplemental Oxygen : 3 LPM N/C (32% FiO2) Minute 6 Pulse: 93 BPM SPO2: 95 % Supplemental Oxygen : 3 LPM N/C (32% FiO2) Post Walk Details Breaks: 2 Total time Spent Restin.25 Minutes Assistive Device: None Total Distance Ambulated: 195 Meters Attained Percentage of Predicted Value: 43 % Gait Speed: 0.54 m/s Attained MET Level: 1.8 Target Workload: 1.1-1.4 Short Physical Performance Battery Short Physical Performance Battery: Performed Balance Score: 4: Full tandem for 10 sec Patient completed 4 meter walk in : 3.65 Seconds Walk Score (4 Meter Walk): 4: If time is less than 4.82 Gait Speed: 1.1 m/s Patient completed 5XSTS in: 7.1 Seconds (UE assist) Chair Stand Score: 0: If participant unable to complete (required UE support) Total Score: 8/12 Timed Up and Go Timed Up and Go: Deferred (deferred due to fatigue) Today's Treatment Today's Treatment: Demonstration, instruction and performance initial HEP per chart copy exercises Equipment Used: None Needs Communication Device: No Patient Understanding of Basic Information: Understands, able to self manage Barriers to Learning: None Readiness to Learn: Accepting and interested Education Needs Identified: HEP, Activity modification related to diagnosis Did Patient/Family Demonstrate Learning: Pt/Family verbalizes understanding, Pt/Family demonstratesunderstanding Who Was Educated: Patient Rehab Potential: Good Education Given: Written/Handout, Pictures, Verbal, Demonstrated Cultural/Orthodox Beliefs: None that will affect treatment Patient's Preferred Language for Communication is: Polish 30 second Sit to Stand Repetitions: 20 (with UE support push up from seat surface) Complexity Grid Impairments: Decreased endurance, ventilation, and/or gas exchange, Impaired functional mobility/transfers, Decreased strength Evaluation/Treatment Tolerance: Patient limited by fatigue, Patient limited dyspnea, Patient limited by desatuartion Impairments Found : Aerobic capacity/Endurance, Muscle performance, Gait, locomotion and balance, Ventilation and respiration/gas exchange Pathology/Pathophysiology Noted (describe specifically for each system): Musculoskeletal, Pulmonary Functional Limitations (describe): Home management, Community/Leisure Clinical Presentation: Evolving clinical presentation with changing characteristics Clinical Decision Making: Moderate complexity Education Patient received information including basic anatomy and physiology as it relates to the pulmonary disease process, breathing strategies including PLB and diaphragmatic breathing techniques, review of medication administration including importance of use of spacer, potential benefits of pulmonary rehab, expectations of participation in pulmonary rehab, strategies to decrease fall risk, energy conservation and work simplification techniques. Pt voiced understanding and denied further questions at this time. Assessment Hayes Mays is a 74 year old male with COPD GOLD IV who participated in balance, strength, andfunctional capacity assessment testing. He scored 8/12 on SPPB, indicating moderate functional limitation. His 4 meter gait speed was measured to be 1.09 m/s, 86% of normative value. He was able to ambulate 195 meters during 6 MWT, attaining 43% of normative value. Unable to tolerate TUG following completion of 6MWT due to fatigue. Completed 20 reps on 30 seconds chair rise test with need to pushfrom seat surface to assist. Completed the 5x [id number] test in 7.10 seconds requiring push up from seat surface. As reflected by the results of the objective tests and measures, this patient demon strates impaired balance, activity tolerance, functional strength and muscle endurance which impairsafety and performance of generalized mobility/locomotion and participation in household and community daily living activities. At this time he is appropriate for participation in outpatient pulmonary rehabilitation program to address impaired activity tolerance and provide education and monitoringof VS with activity progression. Using data gathered from exercise test performed this date, his initial training target HR is 94-125 bpm, initial training target workload is 1.1-1.4 METS, with RPE 3-6. Goals: Goals deferred secondary to patient discharge to pulmonary rehab. Plan Discharge patient to pulmonary rehabilitation to address above-mentioned deficits and provide education and monitoring with activity progression. [1] Patient Active Problem List Diagnosis Cryptogenic stroke ([facility]) PFO (patent foramen ovale) S/P patent foramen ovale closure Status post placement of implantable loop recorder Stage 4 very severe COPD by GOLD classification ([facility]) Physical deconditioning [2] Past Medical History: Diagnosis Date Cyst of kidney, acquired Kidney cysts Personal history of other diseases of the circulatory system History of abdominal aortic aneurysm (AAA) Personal history of other diseases of the respiratory system History of chronic obstructive lung disease Solitary pulmonary nodule Lung nodule [3] Past Surgical History: Procedure Laterality Date PATENT FORAMEN OVALE CLOSURE N/A Patent foramen ovale repair from [facility] documented in this encounter Plan of Treatment Upcoming Encounters Date Type Department Care Team (Late st Contact Info) Description 02/15/2025 1:00 PM EDT Office Visit [facility] Pulmonary Rehab [address] [place] [address] 02/17/2025 1:00 PM EDT Office Visit [facility] Pulmonary Rehab [address] [place] [address] 02/22/2025 1:00 PM EDT Office Visit [facility] Pulmonary Rehab [address] [place] [address] 02/24/2025 1:00 PM EDT Office Visit [facility] Pulmonary Rehab [address] [place] [address] 03/01/2025 1:00 PM EDT Office Visit [facility] Pulmonary Rehab [address] [place] [address] 03/03/2025 1:00 PM EDT Office Visit [facility] Pulmonary Rehab [address] [place] [address] 08/11/2025 1:20 PM EDT Office Visit [facility] [place] [address] [facility] [place] [address] Allie Serna MD [address] [place] [address] documented as of this encounter Visit Diagnoses Diagnosis Stage 4 very severe COPD by GOLD classification ([facility])- Primary Physical deconditioning Muscular wasting and disuse atrophy, not elsewhere classified documented in this encounter Additional Health Concerns Assessment Noted Time PHQ-9 Depression Total Score: 0 08/10/19 25 12:52 PM EDT A fall risk assessment has been complete d for the patient 08/09/2024 12:52 PM EDT A Body Mass Index follow-up plan has been documented for the patient 01/05/2025 12:58 PM EDT documented as of this encounter Care Teams Fur Trimmer Relationship Specialty Start Date End Date Dinh Ritchie MD [address] [place] [address] PCP - General 09/15/20 documented as of this encounter
--- OUTSIDE RECORDS SUMMARY | 2025-01-06 13:00 | XMS_ITS | Encounter Summary ---
Author Organization Healthcare Address [address] [place] [address] Care Team Providers Care Hand Sewer Name Role Phone Dinh Ritchie MD Primary Care Provider [phone] Reason for Visit * Consultation (Routine) - Closed Specialty Diagnoses / Procedures Referred By Contella t Referred To Contact Pulmonology Diagnoses Chronic obstructive pulmonary disease, unspecified COPD type (CMS/HCC) Mark Love MD [address] [place] [address] Phone: tel: fax: [facility] Pulmonary Rehab [address] [place] [address] Phone: tel: fax: Referral ID Status Reason Start Date Expiration Date Visits Re quested Visits Authorized [id number] Closed 12/17/2024 06/18/2026 1 1 Encounter Details Date Type Department Care Team (Late st Contact Info) Description 01/06/2025 1:00 PM EDT Office Visit [facility] Pulmonary Rehab [address] [place] [address] Chronic obstructive pulmonary disease, unspecified COPD type (CMS/HCC) (Primary Dx) Social History Tobacco Use Types Packs/Day Years [...] Sign Reading Time Taken Comments Blood Pressure - - Pulse - - Temperature - - Respiratory Rate - - Oxygen Saturation - - Inhaled Oxygen Concentration - - Weight 49.3 kg (108 lb 11 oz) 01/06/2025 2:00 PM EDT Height 167.6 cm (5' 6 ) 01/06/2025 2:00 PM EDT Body Mass Index 17.54 01/06/2025 2:00 PM EDT documented in this encounter Miscellaneous Notes * Progress Notes - Jocelyn Dozier - 01/06/2025 1:00 PM EDT Pulmonary Rehab Daily Note Patient Name: Hayes Mays Today's Date: 01/06/2025 General General Time In: 1250 Time Out: 1420 Family/Caregiver Present: No Visit Number: 1 Physician on Site: Bakari Staton Pain: 0 Height: 167.6 cm (5' 6 ) Weight: 49.3 kg (108 lb 11 oz) Vital Signs Resting Vital Signs SpO2: 93 % Pulse: 84 Supplemental Oxygen : Room Air BP: 138/80 Dyspnea Index: 2 Falls: 0 Meds Taken: y Meds Changed: n Breathing Assessment Breathing Assessment Breathing Assessment: diminished Exercise Exercise Modalities Recumbent Stepper : Yes UBE: Yes Weights: Yes Seated Stepper Resistance Level: 1 Steps per Minute: 34 Time: 20 Minutes Total Steps: 126 Steps METS: 2.2 Exercise SPO2: 98 Exercise Heart Rate: 78 Supplemental Oxygen : 2 LPM N/C (28% FiO2) (pt o2 dropped below 90 after 7min. and felt soa. Put [id number] of o2 for rest of activity.) Exercise BP: 130/80 Exercise Dyspnea: 4 Rate of Percieved Exertion: 3 Signs and Symptoms: pt paused x 2 during excercise for long periods of time Upper Body Ergometer Resistance: 1 Revolutions per Minute: 20 Time: 20 Distance: 0.91 METS: 2.1 Exercise SPO2: 100 Exercise HR: 89 Supplemental Oxygen: 2 LPM N/C (28% FiO2) Exercise BP: 128/76 Exercise Dyspnea: 2 Rate of Percieved Exertion: 2 Signs and Symptoms: pt tolerated Weights Exercise Sets: 1 Reps: 10 Weight: 2 lbs Time: 10 Minutes Exercise SpO2: 92 Exercise HR: 98 Supplemental Oxygen: 2 LPM N/C (28% FiO2) Exercise Dyspnea: 2 Rate of Perceived Exertion: 2 Signs and Symptoms: pt tolerated well Cool Down Cool Down Exercises Cool Down Exercises: 10 Post-Activity Vital Signs Post-Activity Vital signs SpO2: 92 % Pulse: 98 Supplemental Oxygen : 2 LPM N/C (28% FiO2) BP: 130/68 Dyspnea Index: 2 Educational Classes/20 Minutes Welcome zoom with Dr. Givens documented in this encounter Plan of Treatment Upcoming Encounters Date Type Department Care Team (Late st Contact Info) Description 02/15/2025 1:00 PM EDT Office Visit [facility] Pulmonary Rehab [address] [place] [address] 02/17/2025 1:00 PM EDT Office Visit [facility] Pulmonary Rehab [address] [place] [address] 02/22/2025 1:00 PM EDT Office Visit [facility] Pulmonary Rehab [address] [place] [address] 02/24/2025 1:00 PM EDT Office Visit [facility] Pulmonary Rehab [address] [place] [address] 03/01/2025 1:00 PM EDT Office Visit [facility] Pulmonary Rehab [address] [place] [address] 03/03/2025 1:00 PM EDT Office Visit [facility] Pulmonary Rehab [address] [place] [address] 08/11/2025 1:20 PM EDT Office Visit [facility] [place] [address] [facility] [place] [address] Allie Serna MD [address] [place] [address] documented as of this encounter Visit Diagnoses Diagnosis Chronic obstructive pulmonary disease, unspecified COPD type (CMS/HCC)- Primary documented in this encounter Additional Health Concerns Assessment Noted Time PHQ-9 Depression Total Score: 0 08/10/19 25 12:52 PM EDT A fall risk assessment has been complete d for the patient 08/09/2024 12:52 PM EDT A Body Mass Index follow-up plan has been documented for the patient 01/06/2025 2:23 PM EDT documented as of this encounter Care Teams Hand Sewer Relationship Specialty Start Date End Date Dinh Ritchie MD [address] [facility] [place] [address] PCP - General 09/15/20 documented as of this encounter
--- OUTSIDE RECORDS SUMMARY | 2025-01-10 15:35 | XMS_ITS | Encounter Summary ---
Author Organization Healthcare Address [address] [place] [address] Care Team Providers Care Real Property Appraiser Name Role Phone Dinh Ritchie MD Primary Care Provider [phone] Encounter Details Date Type Department Care Team (Latest Contact Info) Description 01/10/2025 3:35 PM EDT - 01/10/2025 11:59 PM EDT Hospital Encounter Cardiac Imaging [address] [place] [address] History of loop recorder Discharge Disposition: Home [...] Description 02/15/2025 1:00 PM EDT Office Visit [facility] Pulmonary Rehab [address] [place] [address] 02/17/2025 1:00 PM EDT Office Visit [facility] Pulmonary Rehab [address] [place] [address] 02/22/2025 1:00 PM EDT Office Visit [facility] Pulmonary Rehab [address] [place] [address] 02/24/2025 1:00 PM EDT Office Visit [facility] Pulmonary Rehab [address] [place] [address] 03/01/2025 1:00 PM EDT Office Visit [facility] Pulmonary Rehab [address] [place] [address] 03/03/2025 1:00 PM EDT Office Visit [facility] Pulmonary Rehab [address] [place] [address] 08/11/2025 1:20 PM EDT Office Visit [facility] [place] [address] [facility] [place] [address] Allie Serna MD [address] [place] [address] documented as of this encounter Procedures Procedure Name Priority Date/Time Associated Diagnosis Comments CARDIAC DEVICE CHECK - REMOTE - LOOP RECORDER (ILR) Routine 01/10/2025 4:20 PM EDT History of loop recorder documented in this encounter Results * CARDIAC DEVICE CHECK - REMOTE - LOOP RECORDER (ILR) (01/10/2025 4:20 PM EDT) Anatomical Region Laterality Modality Other Narrative 01/11/2025 10:07 AM EDT [facility] EP - Device Clinic Remote CIED Report Name: Hayes Mays Date: 01/11/2025 : 1950 Age: 74 y.o. Reporting period: Reporting period is the last 31 days, with at least 10 days of remote monitoring. Interim reports, if any, reviewed and addressed previously; see remote alert entries for more details. Device: [employer] [id number] implantable tactical deception plans officer (ICM) Battery: Status: Good Evaluation: Presenting rhythm: sinus with 1:1 intrinsic conduction to the ventricle. Trends Rate Histograms : demonstrate good rate distribution. Demonstrates appropriate sensing: Yes Arrhythmias: Report shares one event of AF, giving sample, however not full EGM. Hx of PAF, on Eliquis. Summary CIED functioning as expected, with given programming and data. Key Pelletier James FORBES CV IMPLANTABLE CARDIAC [...] documented as of this encounter Care Teams Real Property Appraiser Relationship Specialty Start Date End Date Dinh Ritchie MD [address] [facility] [place] [address] PCP - General 09/15/20 documented as of this encounter
--- OUTSIDE RECORDS SUMMARY | 2025-01-11 13:00 | XMS_ITS | Encounter Summary ---
Author Organization Healthcare Address [address] [place] [address] Care Team Providers Care Casino Dealer Name Role Phone Dinh Ritchie MD Primary Care Provider [phone] Encounter Details Date Type Department Care Team (Late st Contact Info) Description 01/11/2025 1:00 PM EDT [facility] [address] [place] [phone] Chronic obstructive pulmonary disease, unspecified COPD type [...] - Inhaled Oxygen Concentration - - Weight 50.1 kg (110 lb 7.2 oz) 01/11/2025 2:00 P M EDT Height - - Body Mass Index 17.83 01/06/2025 2:00 PM EDT documented in this encounter Miscellaneous Notes * Progress Notes - Jocelyn Dozier - 01/11/2025 1:00 PM EDT Pulmonary Rehab Daily Note Patient Name: Hayes Mays Today's Date: 01/11/2025 General General Time In: 1250 Time Out: 1420 Family/Caregiver Present: No Visit Number: 2 Physician on Site: ace martínez md Pain: 0 Weight: 50.1 kg (110 lb 7.2 oz) Vital Signs Resting Vital Signs SpO2: 91 % Pulse: 76 Supplemental Oxygen : Room Air BP: 110/80 Dyspnea Index: 2 Falls: 0 Meds Taken: y Meds Changed: n Breathing Assessment Breathing Assessment Breathing Assessment: diminished Exercise Exercise Modalities Track Walk: Yes UBE: Yes Weights: Yes Track Walk Assistive Device: None (pulled o2 tank) Time: 20 Minutes Number of Laps: 12 Exercise SPO2: 98 Exercise HR: 91 Supplemental Oxygen: 2 LPM N/C (28% FiO2) Exercise BP: 124/82 Exercise Dyspnea: 2 Rate of Percieved Exertion: 3 Signs and Symptoms: pt rested X3 Upper Body Ergometer Resistance: 1.5-2 Revolutions per Minute: 20 Time: 20 Distance: 1.07 METS: 2.2 Exercise SPO2: 97 Exercise HR: 91 Supplemental Oxygen: 2 LPM N/C (28% FiO2) Exercise BP: 130/78 Exercise Dyspnea: 3 Rate of Percieved Exertion: 2 Signs and Symptoms: pt tolerated well Weights Exercise Sets: 2 Reps: 12 Weight: 2 lbs Time: 10 Minutes Exercise SpO2: 91 Exercise HR: 98 Supplemental Oxygen: 2 LPM N/C (28% FiO2) Exercise Dyspnea: 4 Rate of Perceived Exertion: 4 Signs and Symptoms: pt tolerated well Cool Down Cool Down Exercises Cool Down Exercises: 10 Post-Activity Vital Signs Post-Activity Vital signs SpO2: 98 % Pulse: 72 Supplemental Oxygen : 2 LPM N/C (28% FiO2) BP: 138/80 Dyspnea Index: 2 Educational Classes/20 Minutes Nutrition 1 AN Pt given education packet documented in this encounter Plan of Treatment Upcoming Encounters Date Type Department Care Team (Late st Contact Info) Description 02/15/2025 1:00 PM EDT Office Visit [facility] Pulmonary Rehab [address] [place] [address] 02/17/2025 1:00 PM EDT Office Visit [facility] Pul[facility] Rehab [address] [place] [address] 02/22/2025 1:00 PM EDT Office Visit [facility] [address] [place] [address] 02/24/2025 1:00 PM EDT Office Visit [facility] [address] [place] [address] 03/01/2025 1:00 PM EDT Office Visit [facility] [address] [place] [address] 03/03/2025 1:00 PM EDT Office Visit [facility] Pul[facility] Rehab [address] [place] [address] 08/11/2025 1:20 PM EDT Office Visit [facility] [address] [place] [address] Allie Serna MD [address] [place] [address] documented as of this encounter Visit Diagnoses [...] plan has been documented for the patient 01/11/2025 2:21 PM EDT documented as of this encounter Care Teams Casino Dealer Relationship Specialty Start Date End Date Dinh Ritchie MD [address] [place] [address] PCP - General 09/15/20 documented as of this encounter
--- OUTSIDE RECORDS SUMMARY | 2025-01-13 13:00 | XMS_ITS | Encounter Summary ---
Author Organization Healthcare Address [address] [place] [address] Care Team Providers Care Damage Cutter Name Role Phone Dinh Ritchie MD Primary Care Provider [phone] Encounter Details Date Type Department Care Team (Late st Contact Info) Description 01/13/2025 1:00 PM EDT Office Visit [facility] [address] [place] [phone] Chronic obstructive pulmonary disease, unspecified COPD type [...] as of this encounter Miscellaneous Notes * Progress Notes - Jocelyn Dozier - 01/13/2025 1:00 PM EDT Pulmonary Rehab Daily Note Patient Name: Hayes Mays Today's Date: 01/13/2025 General General Time In: 1250 Time Out: 1420 Family/Caregiver Present: No Visit Number: 3 Physician on Site: Shabnam Gross DO Pain: 0 Vital Signs Resting Vital Signs SpO2: 90 % Pulse: 71 Supplemental Oxygen : Room Air BP: 128/76 Dyspnea Index: 0.5 Falls: 0 Meds Taken: y Meds Changed: n Breathing Assessment Breathing Assessment Breathing Assessment: diminished Exercise Exercise Modalities Track Walk: Yes Recumbent Stepper : Yes Weights: Yes Track Walk Assistive Device: None Time: 20 Minutes Number of Laps: 19 Exercise SPO2: 92 Exercise HR: 94 Supplemental Oxygen: 2 LPM N/C (28% FiO2) Exercise BP: 118/80 Exercise Dyspnea: 3 Rate of Percieved Exertion: 3 Signs and Symptoms: x 3 rest breaks Seated Stepper Resistance Level: 2 Steps per Minute: 39 Time: 20 Minutes Total Steps: 342 Steps METS: 2.2 Exercise SPO2: 96 Exercise Heart Rate: 93 Supplemental Oxygen : 2 LPM N/C (28% FiO2) Exercise BP: 114/78 Exercise Dyspnea: 3 Rate of Percieved Exertion: 3 Signs and Symptoms: pt rest x4 Weights Exercise Sets: 2 Reps: 15 Weight: 2 lbs Time: 10 Minutes Exercise SpO2: 88 Exercise HR: 80 Supplemental Oxygen: 2 LPM N/C (28% FiO2) Exercise Dyspnea: 3 Rate of Perceived Exertion: 4 Signs and Symptoms: pt tolerated well Cool Down Cool Down Exercises Cool Down Exercises: 10 Post-Activity Vital Signs Post-Activity Vital signs SpO2: 97 % Pulse: 68 Supplemental Oxygen : 2 LPM N/C (28% FiO2) BP: 128/78 Dyspnea Index: 2 Educational Classes/20 Minutes Nutrition 2AN Pt given education packet documented in this encounter Plan of Treatment Upcoming Encounters Date Type Department Care Team (Late st Contact Info) Description 02/15/2025 1:00 PM EDT Office Visit [facility] Pulmonary Rehab [address] [place] [address] 02/17/2025 1:00 PM EDT Office Visit [facility] Pulmonary Rehab [address] [place] [address] 02/22/2025 1:00 PM EDT Office Visit [facility] Pulmonary Rehab [address] [place] [address] 02/24/2025 1:00 PM EDT Office Visit [facility] Re[facility] [address] [place] [address] 03/01/2025 1:00 PM EDT Office Visit [facility] Rehab [address] [place] [address] 03/03/2025 1:00 PM EDT Office Visit [facility] Pulmonary Rehab [address] [place] [address] 08/11/2025 1:20 PM EDT Office Visit [facility] [place] [facility] [address] [place] [address] Allie Serna MD [address] [place] [address] documented as of this encounter Visit Diagnoses [...] plan has been documented for the patient 01/13/2025 2:17 PM EDT documented as of this encounter Care Teams Damage Cutter Relationship Specialty Start Date End Date Dinh Ritchie MD [address] [place] [address] PCP - General 09/15/20 documented as of this encounter
--- OUTSIDE RECORDS SUMMARY | 2025-01-18 13:00 | XMS_ITS | Encounter Summary ---
Author Organization Healthcare Address [address] [place] [address] Care Team Providers Care Tours Hostess Name Role Phone Dinh Ritchie MD Primary Care Provider [phone] Encounter Details Date Type Department Care Team (Late st Contact Info) Description 01/18/2025 1:00 PM EDT Office Visit [facility] [address] [place] [phone] Chronic obstructive pulmonary disease, unspecified COPD type [...] - Inhaled Oxygen Concentration - - Weight 49.6 kg (109 lb 5.6 oz) 01/18/2025 2:00 P M EDT Height - - Body Mass Index 17.65 01/06/2025 2:00 PM EDT documented in this encounter Miscellaneous Notes * Progress Notes - Jocelyn Dozier - 01/18/2025 1:00 PM EDT Pulmonary Rehab Daily Note Patient Name: Hayes Mays Today's Date: 01/18/2025 General General Time In: 1250 Time Out: 1420 Family/Caregiver Present: No Visit Number: 4 Physician on Site: Parisa Pizarro md Pain: 0 Weight: 49.6 kg (109 lb 5.6 oz) Vital Signs Resting Vital Signs SpO2: 90 % Pulse: 78 Supplemental Oxygen : Room Air BP: 120/78 Dyspnea Index: 2 Breathing Assessment Breathing Assessment Breathing Assessment: diminished Exercise Exercise Modalities Track Walk: Yes UBE: Yes Weights: Yes Track Walk Assistive Device: None Time: 20 Minutes Number of Laps: 17 Exercise SPO2: 96 Exercise HR: 73 Supplemental Oxygen: 2 LPM N/C (28% FiO2) Exercise BP: 128/80 Exercise Dyspnea: 4 Rate of Percieved Exertion: 3 Signs and Symptoms: x 2 rest breaks Upper Body Ergometer Resistance: 3 Revolutions per Minute: 20 Time: 20 Distance: 1.34 METS: 2.3 Exercise SPO2: 98 Exercise HR: 77 Supplemental Oxygen: 2 LPM N/C (28% FiO2) Exercise BP: 120/80 Exercise Dyspnea: 2 Rate of Percieved Exertion: 2 Signs and Symptoms: pt tolerated well Weights Exercise Sets: 1 Reps: 10 Weight: 3 lbs Time: 10 Minutes Exercise SpO2: 96 Exercise HR: 80 Supplemental Oxygen: 2 LPM N/C (28% FiO2) Exercise Dyspnea: 3 Rate of Perceived Exertion: 2 Signs and Symptoms: pt tolerated well Cool Down Cool Down Exercises Cool Down Exercises: 10 Post-Activity Vital Signs Post-Activity Vital signs SpO2: 93 % Pulse: 66 Supplemental Oxygen : 2 LPM N/C (28% FiO2) BP: 120/82 Dyspnea Index: 2 Educational Classes/20 Minutes Oxygen MW Pt given education packet documented in this encounter Plan of Treatment Upcoming Encounters Date Type Department Care Team (Late st Contact Info) Description 02/15/2025 1:00 PM EDT Office Visit [facility] Pulmonary Rehab [address] [place] [address] 02/17/2025 1:00 PM EDT Office Visit [facility] Rehab [address] [place] [address] 02/22/2025 1:00 PM EDT Office Visit [facility] [address] [place] [address] 02/24/2025 1:00 PM EDT Office Visit [facility] [address] [place] [address] 03/01/2025 1:00 PM EDT Office Visit [facility] Re[facility] [address] [place] [address] 03/03/2025 1:00 PM EDT Office Visit [facility] Re[facility] [address] [place] [address] 08/11/2025 1:20 PM EDT Office Visit [facility] [address] [place] [address] Allie Serna MD [address] [place] [address] documented as of this encounter Visit Diagnoses [...] plan has been documented for the patient 01/18/2025 2:34 PM EDT documented as of this encounter Care Teams Tours Hostess Relationship Specialty Start Date End Date Dinh Ritchie MD [address] [place] [address] PCP - General 09/15/20 documented as of this encounter
--- OUTSIDE RECORDS SUMMARY | 2025-01-20 13:00 | XMS_ITS | Encounter Summary ---
Author Organization Healthcare Address [address] [place] [address] Care Team Providers Care Orthopaedic Physician Assistant Name Role Phone Dinh Ritchie MD Primary Care Provider [phone] Encounter Details Date Type Department Care Team (Late st Contact Info) Description 01/20/2025 1:00 PM EDT [facility] Visit [facility] [address] [place] [phone] Chronic obstructive pulmonary disease, unspecified COPD type [...] * Progress Notes - Jocelyn Dozier - 01/20/2025 1:00 PM EDT Pulmonary Rehab Daily Note Patient Name: Hayes Mays Today's Date: 01/20/2025 General General Time In: 1250 Time Out: 1420 Family/Caregiver Present: No Visit Number: 5 Physician on Site: Calista Hughes MD Pain: 0 Vital Signs Resting Vital Signs SpO2: 95 % Pulse: 65 Supplemental Oxygen : Room Air BP: 128/76 Dyspnea Index: 0.5 Falls: 0 Meds Taken: y Meds Changed: n Breathing Assessment Breathing Assessment Breathing Assessment: diminished Exercise Exercise Modalities Track Walk: Yes Recumbent Stepper : Yes Weights: Yes Track Walk Assistive Device: None Time: 20 Minutes Number of Laps: 33 Exercise SPO2: 97 Exercise HR: 76 Supplemental Oxygen: 2 LPM N/C (28% FiO2) Exercise BP: 120/72 Exercise Dyspnea: 3 Rate of Percieved Exertion: 3 Signs and Symptoms: x3 Seated Stepper Resistance Level: 2 Steps per Minute: 38 Time: 20 Minutes Total Steps: 268 Steps METS: 2.3 Exercise SPO2: 96 Exercise Heart Rate: 79 Supplemental Oxygen : 2 LPM N/C (28% FiO2) Exercise BP: 128/60 Exercise Dyspnea: 3 Rate of Percieved Exertion: 4 Signs and Symptoms: X4 rest Weights Exercise Assessment Sets: 1 Reps: 10 Weight: 3 lbs Time: 10 Minutes Exercise SpO2: 98 Exercise HR: 79 Supplemental Oxygen: 2 LPM N/C (28% FiO2) Exercise Dyspnea: 3 Rate of Perceived Exertion: 3 Signs and Symptoms: pt tolerated well Cool Down Cool Down Exercises Cool Down Exercises: 10 Post-Activity Vital Signs Post-Activity Vital signs SpO2: 98 % Pulse: 81 Supplemental Oxygen : 2 LPM N/C (28% FiO2) BP: 130/70 Dyspnea Index: 2 Educational Classes/20 Minutes Oxygen MW Pt given education packet documented in this encounter Plan of Treatment Upcoming Encounters Date Type Department Care Team (Late st Contact Info) Description 02/15/2025 1:00 PM EDT Office Visit [facility] Pulmonary Rehab [address] [place] [address] 02/17/2025 1:00 PM EDT Office Visit [facility] Pul[facility] Rehab [address] [place] [address] 02/22/2025 1:00 PM EDT Office Visit [facility] Pul[facility] Rehab [address] [place] [address] 02/24/2025 1:00 PM EDT Office Visit [facility] Rehab [address] [place] [address] 03/01/2025 1:00 PM EDT Office Visit [facility] Pul[facility] Rehab [address] [place] [address] 03/03/2025 1:00 PM EDT Office Visit [facility] Re[facility] [address] [place] [address] 08/11/2025 1:20 PM EDT Office Visit [facility] [place] [facility] [address] [place] [address] Allie Serna MD [address] [place] [address] documented as of this encounter Visit Diagnoses [...] plan has been documented for the patient 01/20/2025 2:40 PM EDT documented as of this encounter Care Teams Orthopaedic Physician Assistant Relationship Specialty Start Date End Date Dinh Ritchie MD [address] [place] [address] PCP - General 09/15/20 documented as of this encounter
--- OUTSIDE RECORDS SUMMARY | 2025-01-21 16:01 | XMS_ITS | Encounter Summary ---
Author Organization [employer] ([place], [place], [place], [place]) Address [address] [place] [address] Care Team Providers Care Television Engineer Name Role Phone Collette Rendon APRN Primary Care Provider Barry Bernal MD Unavailable [phone] Reason for Visit * Reason Comments Abdominal Pain Encounter Details Date Type Department Care Team (Late st Contact Info) Description 01/21/2025 4:01 PM EDT - 01/21/2025 7:40 PM EDT Emergency [facility] Emergency Department [address] [place] [address] Donald Garcia DO [address] [place] [address] Left nephrolithiasis (Primary Dx) Discharge Disposition: Home or Self Care Social History Tobacco Use Types Packs/Day Years Used Date Smoking Tobacco: Former Cigarettes Smokeless Tobacco: Never Alcohol Use Standard Drinks/Week Comments Never 0 (1 standard drink = 0.6 oz pur e alcohol) Family and Community Support Answer Golden e Recorded Help with Day to Day Activities Not on file 11/03/2023 Feeling Lonely or Isolated Not on file 11/02 Educational Attainment Answer Date Haider rded Speak language other than Paraguayan at home Not on file 11/03/2023 Want [...] Sign Reading Time Taken Comments Blood Pressure 119/62 01/21/2025 7:05 PM EDT Pulse 90 01/21/2025 7:05 PM EDT Temperature 36.4 C (97.6 F) 01/21/2025 3:58 PM EDT Respiratory Rate 16 01/21/2025 3:58 PM EDT Oxygen Saturation 100% 01/21/2025 7:05 PM EDT Inhaled Oxygen Concentration - - Weight 49.9 kg (110 lb) 01/21/2025 3:58 PM EDT Height 167.6 cm (5' 6 ) 01/21/2025 3:58 PM EDT Body Mass Index 17.75 01/21/2025 3:58 PM EDT documented in this encounter Discharge Instructions * Discharge Instructions* Shauna Roberto PA-C - 01/21/2025 6:55 PM EDT Please bean picker your medications from the pharmacy and take them as directed. Stay hydrated by drinking plenty fluids. Please call and schedule follow-up appointment with your primary care provider and with urology for reevaluation. If any new or worsening symptoms return to the emergency department. documented in this encounter Medications at Time of Discharge albuterol sulfate (ProAir RespiClick) 90 mcg/actuation aepb Inhale 1 puff by mouth every 4 (four) hours as needed. apixaban (Eliquis) 5 mg tab tablet Take 1 tablet (5 mg total) by mouth. 05/26/2023 atorvastatin (LIPITOR) 80 MG tablet Take 1 tablet (80 mg total) by mouth daily. 11/05/2023 Bevespi Aerosphere 9-4.8 mcg HFAA SMARTSIG:Via Inhaler 09/17/2023 dilTIAZem (CARDIZEM CD) 120 MG 24 hr capsule Take by mouth. 09/17/2023 miscellaneous medical supply miscIndications: Panlobular emphysema (HCC) Order for Pulmonary Rehab. 1 each 11/25/2024 polyethylene glycol (GoLYTELY) 236-22.74-6.74 -5.86 gram solution documented as of this encounter ED Notes * Shauna Liyah Roberto PA-C - 01/21/2025 3:56 PM EDT Subjective Chief Complaint: Abdominal Pain Patient is a 74-year-old male past medical history of COPD presents to the emergency department complaining of left flank pain x 1 day. He presents with his who helps provide some of the history. He states that the pain presented after he woke up this morning. He states the pain is constant but varies in intensity. He denies any radiation of the pain. He denies any injury or inciting event. He does report associated nausea and vomiting. He does report associated urinary urgency and frequency, states this has been going on for several weeks. He denies any dysuria, hematuria. Patient does follow with Dr. Lanza for urology. He states that he has a known left renal stenosis and bilateral renal artery stenosis. He denies any fever, chest pain, shortness of breath, diarrhea, constipation. 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 Status post placement of implantable loop recorder 03/14/2021 TIA (transient ischemic attack) 11/04/2023 Past Surgical History: Procedure Laterality Date COLONOSCOPY,ENDOSCOPIC MUCOSAL RESECTION N/A 01/08/2024 Procedure: COLONOSCOPY, WITH ENDOSCOPIC MUCOSAL RESECTION; Surgeon: Sergey Alcantar MD; Location: [facility]; Service: Gastroenterology; Laterality: N/A; COLONOSCOPY,POLYPECTOMY N/A 01/08/2024 Procedure: COLONOSCOPY, WITH POLYPECTOMY; Surgeon: Sergey Alcantar MD; Location: [facility]; Service: Gastroenterology; Laterality: N/A; loop recorder PATENT FORAMEN OVALE CLOSURE REPAIR,ANEURYSM THORACOABDOMINAL AORTIC W/BYPASS Family History Problem Relation Name Age of Onset Heart attack Father Stroke Other Social History Tobacco Use Smoking status: Former Current packs/day: 1.50 Average packs/day: (40.0 ttl pk-yrs) Types: Cigarettes Smokeless tobacco: Never Substance Use Topics Alcohol use: Never I reviewed the HPI, ROS and PFSH documentation recorded by others in the medical record and supplemented my note as needed. Review of Systems Review of Systems All other systems reviewed and are negative. Physical Exam ED Triage Vitals Encounter Vitals Group BP Girls Systolic BP Percentile Girls Diastolic BP Percentile Boys Systolic BP Percentile Boys Diastolic BP Percentile Pulse Resp Temp Temp src SpO2 Weight Height Head Circumference Peak Flow Pain Score Pain Loc Pain Education Exclude from Growth Chart Physical Exam Vitals and nursing note reviewed. Constitutional: General: He is not in acute distress. Appearance: Normal appearance. He is normal weight. He is not ill-appearing. HENT: Head: Normocephalic and atraumatic. Nose: Nose normal. Cardiovascular: Rate and Rhythm: Normal rate. Pulses: Normal pulses. Pulmonary: Effort: Pulmonary effort is normal. Abdominal: Palpations: Abdomen is soft. Tenderness: There is no abdominal tenderness. There is left CVA tenderness. Skin: General: Skin is warm and dry. Capillary Refill: Capillary refill takes less than 2 seconds. Neurological: General: No focal deficit present. Mental Status: He is alert and oriented to person, place, and time. Psychiatric: Mood and Affect: Mood normal. Behavior: Behavior normal. Neurological Exam Mental Status Alert. Oriented to person, place, and time. Ortho Exam ED Course & MDM Medications sodium chloride 0.9% (NS) bolus (0 mLs intravenous IVPB Stopped 01/21/25 1733) ondansetron (ZOFRAN) injection 4 mg (4 mg intravenous Given 01/21/25 1638) morphine injection 2 mg (2 mg intravenous Given 01/21/25 1638) iopamidoL (ISOVUE-370) 370 mg iodine /mL (76 %) injection 75 mL (75 mLs intravenous Given 01/21/25 1658) morphine injection 2 mg (2 mg intravenous Given 01/21/25 1742) metoclopramide HCl (REGLAN) injection 5 mg (5 mg intravenous Given 01/21/25 174) Results for orders placed or performed during the hospital encounter of 01/21/25 CBC with Auto Diff Result Value Ref Range WBC 10.5 (H) 4.2 - 9.1 K/??L RBC 4.70 4.63 - 6.08 M/??L Hemoglobin 14.5 13.7 - 17.5 GM/DL Hematocrit 42.9 40.1 - 51.0 % MCV 91 79 - 92 fL MCH 30.9 25.7 - 32.2 pg MCHC 33.8 32.3 - 36.5 GM/DL RDW 13.4 11.6 - 14.4 % Platelets 209 140 - 375 K/CU MM MPV 9.9 9.4 - 12.4 fL % Neutros 87 (H) 34 - 68 % % Lymphs 8 (L) 22 - 53 % % Monos 5 5 - 12 % % Eos 0 (L) 1 - 7 % % Baso 0 0 - 1 % NRBC Absolute <0.01 0 - 0.012 K/ul # Neutros 9.07 (H) 1.78 - 5.38 K/??L # Lymphs 0.87 (L) 1.32 - 3.57 K/??L # Monos 0.47 0.30 - 0.82 K/??L # Eos <0.03 (L) 0.04 - 0.54 K/ L # Baso 0.04 0.01 - 0.08 K/??L Immature Granulocytes-Relative 0.20 0.01 - 0.43 % # IG <0.03 0.00 - 0.03 K/uL Comprehensive metabolic panel Result Value Ref Range Sodium 142 136 - 145 meq/L Potassium 4.6 3.4 - 5.1 meq/L Chloride 106 98 - 112 meq/L CO2 25 22 - 29 meq/L Calcium 9.3 8.4 - 10.2 mg/dL Glucose 105 82 - 115 mg/dL BUN 25.9 (H) 8.4 - 25.7 mg/dL Creatinine 0.79 0.72 - 1.25 mg/dL BUN/Creatinine 33 (H) 8 - 20 eGFR (mL/min/1.73m2) 94 >=60 mL/min/1.73m2 Albumin 4.1 3.5 - 5.0 g/dL Alkaline Phosphatase 71 40 - 150 U/L ALT 19 <=45 U/L AST 40 (H) 11 - 34 U/L Total Bilirubin 0.9 0.2 - 1.2 mg/dL Protein, Total 7.6 6.4 - 8.3 g/dL Globulin 3.5 2.5 - 4.1 g/dL Anion Gap 16 (H) 4 - 12 A/G Ratio 1.2 0.7 - 1.9 Osmolality Calc 288.2 mOsm/kg Urinalysis, Reflex Microscopic and Culture If Indicated Result Value Ref Range Color, UA Light Yellow Clarity, UA Clear Clear Specific [place], UA 1.045 (H) 1.005 - 1.030 pH, UA 7.0 6.0 - 8.0 Leukocytes, UA Negative Negative Nitrite, UA Negative Negative Protein, UA Negative Negative Glucose, UA Normal Normal Ketones, UA 1+ (A) Negative Bilirubin, UA Negative Negative Blood, UA 3+ (A) Negative Urobilinogen, UA Normal Normal Specimen Source Urine, Clean Catch Urinalysis Microscopic Only Result Value Ref Range WBC, UA 0-2 (A) None Seen /HPF RBC, UA Too Numerous To Count (A) None Seen /HPF Bacteria, UA None Seen None Seen, Trace Mucus 1+ (A) None Seen SQUAMOUS EPITHELIAL None Seen None Seen /HPF CT ABDOMEN/PELVIS WITH IV CONTRAST Final Result 1. 5 mm obstructing stone at the left UVJ with moderate left hydronephrosis. 2. 8.7 x 6.0 cm left renal cyst which is stable compared to the prior examination. 3. 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 Images reviewed, interpreted, and dictated by Dr. David Barrios. Transcribed by Octavio Jorgensen. ED Course as of 01/21/252003Jan 21, 2025 1841 Notified by nursing staff that patient became hypoxic after the second dose of morphine. He isplaced on 2 L O2. [RS] ED Course User Index [RS] Shauna Roberto PA-C Procedures Medical Decision Making 74-year-old male complaining of left flank pain with associated nausea and vomiting x 1 day. PMHx: Left renal cyst, bilateral renal artery stenosis, follows with Dr. Lanza for urology DDx including but not limited to: Nephrolithiasis, pyelonephritis, UTI, muscle strain BP 134/83 Pulse 75 Temp 97.6 ??F (36.4 ??C) (Oral) Resp 16 Ht 1.676 m (5' 6 ) Wt 49.9 kg (110 lb) BMI 17.75 kg/m?? On exam, patient is in no acute distress. Regular rate and rhythm. Lungs CTA bilaterally. Abdomen is soft and bowel sounds normal. Nontender to palpation. There is left-sided CVA tenderness. Patient given IV fluids, Zofran, small dose of morphine in the ED. Patient continued to complain ofpain and nausea. He was given another small dose of morphine and Reglan. Patient did become slightly hypoxic after the second dose of morphine and was placed on 2 L O2 nasal cannula. CBC: Slight leukocytosis, WBC 10.5 K CMP nonactionable UA: Positive for blood, no bacteria. CT abdomen pelvis: 1. 5 mm obstructing stone at the left UVJ with moderate left hydronephrosis. 2. 8.7 x 6.0 cm left renal cyst which is stable compared to the prior examination. 3. 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 Case discussed with Dr. Garcia. Patient ultimately found safe for discharge. Vital signs stable at the time of discharge. Patient provided a urine strainer. Short supply of Zofran and Flomax sent to the pharmacy by myself. Short supply of [place] sent to the [facility] by Dr. Garcia. Patient later asked that his medication be sent to a local 24-hour pharmacy instead. I switched his prescriptions for Zofran and Flomax to the [facility], as this is a 24-hour pharmacy. I have asked Dr. Cantu to resend his pain medication to the correct pharmacy since Dr. Garcia has gone home. I did call the [facility] and have his previous prescriptions canceled. Patient ins tructed to stay hydrated by drinking plenty of fluids. Patient instructed to follow-up with his PCPand urology for reevaluation. Return precautions given. Patient and family are in agreement this plan. Risk Prescription drug management. Assessment & Plan Clinical Impression Diagnosis Comment Added By Time Added Left nephrolithiasis Shauna Roberto PA-C 01/21/2025 6:23 PM Disposition Discharge [1] - 01/21/2025 6:23 PM Discharge Medication List as of 01/21/2025 7:32 PM START taking these medications Details HYDROcodone-acetaminophen (NORCO) 5-325 mg per tablet Take 1 tablet by mouth every 6 (six) hours asneeded for pain for up to 12 doses. Max Daily Amount: 4 tablets, Starting Fri01/21/2025, Normal ondansetron (ZOFRAN-ODT) 4 MG disintegrating tablet Take 1 tablet (4 mg total) by mouth every 8 (eight) hours as needed for nausea or vomiting for up to 5 days., Starting Fri01/21/2025, Until Fri01/26/2025 at 2359, Normal tamsulosin (FLOMAX) 0.4 mg cap 24 hr capsule Take 1 capsule (0.4 mg total) by mouth daily for 7 days Or until stone passes., Starting Fri01/21/2025, Until Fri01/28/2025, Normal Contact information for follow-up [facility] Emergency Department Specialty: Emergency Medicine [address] [facility] [address] Next Steps: Go to Instructions: If symptoms worsen Collette Rendon APRN Specialty: Emergency Medicine [address] [facility] [address] Next Steps: Schedule an appointment as soon as possible for a visit Instructions: As needed Rikki Lanza MD Specialty: Urology [address] [facility] [address] Next Steps: Schedule an appointment as soon as possible for a visit Instructions: Re-evaluation Electronically Signed By Shauna Roberto PA-C 01/21/252003 Cosigned by Donald Garcia DO at 01/22/2025 7:40 AM EDT Associated attestation - Donald Garcia DO - 01/22/2025 6:40 AM CDT This visit was performed by both the physician and an APC. I performed all aspects of the MDM as documented . [id number]: I performed a substantial part of the medical decision making during the patient's visit. I personally made/approved the document and management plan. * Bhupinder Alford RN - 01/21/2025 3:56 PM EDT Pt arrives to the ED with c/o left sided abd and flank pain x1 day. Pt states he feels like he has been retaining urine. Pt reports having cyst on the left kidney and narrowing of the arteries that lead to the kidneys. Pt follows with . documented in this encounter Plan of Treatment Upcoming Encounters Date Type Department Care Team (Late st Contact Info) Description 05/11/2025 1:30 PM EST Office Visit [facility] Pulmonology - [address] [place] [address] Mark Love MD [address] [place] [address] documented as of this encounter Procedures Procedure Name Priority Date/Time Associated Diagnosis Comments URINALYSIS, REFLEX MICROSCOPIC AND CULTURE IF INDICATED STAT 01/21/2025 5:33 PM EDT URINALYSIS MICROSCOPIC STAT 5:[address] ABDOMEN/PELVIS WITH IV CONTRAST STAT 01/21/2025 4:58 PM EDT CBC W/ AUTO DIFF STAT 01/21/2025 4:10 PM EDT COMPREHENSIVE METABOLIC PANEL STAT 01/21/2025 4:10 PM EDT documented in this encounter Results * (ABNORMAL) Urinalysis Microscopic Only (01/21/2025 5:33 PM EDT) WBC, UA 0-2(A) None Seen /HPF 01/21/2025 5:46 PM EDT [facility] RBC, UA Too Numerous To Count(A) None Seen /HPF 01/21/2025 5:46 PM EDT [facility] Bacteria, UA None Seen None Seen, Trace 01/21/2025 5:46 PM EDT [facility] Mucus 1+(A) None Seen 01/21/2025 5:46 PM EDT [facility] SQUAMOUS EPITHELIAL None Seen None Seen /HPF 01/21/2025 5:46 PM EDT [facility] Urine URINE SPECIMEN COLLECTION, CLEAN CATCH / Unknown 01/21/2025 5:33 PM EDT 01/21/2025 5:36 PM EDT us Darnell Avila [employer]S ENGINEER URINE ORDERABLES Final Result [facility] [address] [phone] * (ABNORMAL) Urinalysis, Reflex Microscopic and Culture If Indicated (01/21/2025 5:33 PM EDT) Color, UA Light Yellow 01/21/2025 5:43 PM EDT [facility] Clarity, UA Clear Clear 01/21/2025 5:43 PM EDT [facility] Specific [place], UA 1.045(H) 1.005 - 1.030 01/21/2025 5:43 PM EDT [facility] pH, UA 7.0 6.0 - 8.0 01/21/2025 5:43 PM EDT [facility] Leukocytes, UA Negative Negative 01/21/2025 5:43 PM EDT [facility] Nitrite, UA Negative Negative 01/21/2025 5:43 PM EDT [facility] Protein, UA Negative Negative 01/21/2025 5:43 PM EDT [facility] Glucose, UA Normal Normal 01/21/2025 5:43 PM EDT [facility] Ketones, UA 1+(A) Negative 01/21/2025 5:43 PM EDT [facility] Bilirubin, UA Negative Negative 01/21/2025 5:43 PM EDT [facility] Blood, UA 3+(A) Negative 01/21/2025 5:43 PM EDT [facility] Urobilinogen, UA Normal Normal 01/21/2025 5:43 PM EDT [facility] Specimen Source Urine, Clean Catch 01/21/2025 5:43 PM EDT [facility] Urine URINE SPECIMEN COLLECTION, CLEAN CATCH / Unknown 01/21/2025 5:33 PM EDT 01/21/2025 5:36 PM EDT Darnell Avila APRN URINE ORDERABLES Final Result [facility] [address] [phone] * CT ABDOMEN/PELVIS WITH IV CONTRAST (01/21/2025 4:58 PM EDT) Anatomical Region Laterality Modality Abdomen, Pelvis Computed Tomogra phy (CT) 01/21/2025 5:52 PM EDT Impressions 01/21/2025 6:11 PM EDT 1. 5 mm obstructing stone at the left UVJ with moderate left hydronephrosis. 2. 8.7 x 6.0 cm left renal cyst which is stable compared to the prior examination. 3. 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 Images reviewed, interpreted, and dictated by Dr. David Barrios. Transcribed by Octavio Jorgensen. Narrative 01/21/2025 6:[address] SCAN OF THE ABDOMEN AND PELVIS WITH CONTRAST HISTORY: Acute left flank pain. Nausea/vomiting. COMPARISON: February 15, 2020. PROCEDURE: Axial CT images of the abdomen and pelvis were obtained with oral and IV contrast. Coronal reformatted images were also obtained and reviewed. Individualized dose reduction techniques using automated exposure control or adjustment of the mA and/or kV according to patient size were employed. FINDINGS: ABDOMEN: The lung bases are clear. The heart is normal in size. There are a few well circumscribed low attenuation structures in the anterior liver which are essentially stable and consistent with benign cysts. These measure up to 10 mm. The liver parenchyma is otherwise homogeneous. The spleen is unremarkable. No adrenal mass is present. The pancreas has an unremarkable appearance. There is a tiny nonobstructing right kidney stone measuring 2 mm. The left kidney demonstrates a large lobular cystic lesion measuring 8.7 x 6.0 cm with mild partial calcification. This is stable since the prior examination and consistent with a complex cyst. There is moderate left hydronephrosis which appears secondary to an obstructing stone at the left UVJ measuring 5 mm (image 64). An aortic endograft is present. The aneurysm has decreased in size compared to the previous and measures up to 3.3 cm on today's study. There is no free fluid or adenopathy. No mass or abnormal fluid collection is seen. There is a large amount stool throughout the colon. PELVIS: The appendix is normal. The urinary bladder is unremarkable. No inflammatory process is seen. There is no evidence of mass or adenopathy. There is no evidence of bowel obstruction. Procedure Note David Barrios MD - 01/21/2025 CT SCAN OF THE ABDOMEN AND PELVIS WITH CONTRAST HISTORY: Acute left flank pain. Nausea/vomiting. COMPARISON: February 15, 2020. PROCEDURE: Axial CT images of the abdomen and pelvis were obtained with oral and IV contrast. Coronal reformatted images were also obtained and reviewed. Individualized dose reduction techniques using automated exposure control or adjustment of the mA and/or kV according to patient size were employed. FINDINGS: ABDOMEN: The lung bases are clear. The heart is normal in size. There are a few well circumscribed low attenuation structures in the anterior liver which are essentially stable and consistent with benign cysts. These measure up to 10 mm. The liver parenchyma is otherwise homogeneous. The spleen is unremarkable. No adrenal mass is present. The pancreas has an unremarkable appearance. There is a tiny nonobstructing right kidney stone measuring 2 mm. The left kidney demonstrates a large lobular cystic lesion measuring 8.7 x 6.0 cm with mild partial calcification. This is stable since the prior examination and consistent with a complex cyst. There is moderate left hydronephrosis which appears secondary to an obstructing stone at the left UVJ measuring 5 mm (image 64). An aortic endograft is present. The aneurysm has decreased in size compared to the previous and measures up to 3.3 cm on today's study. There is no free fluid or adenopathy. No mass or abnormal fluid collection is seen. There is a large amount stool throughout the colon. PELVIS: The appendix is normal. The urinary bladder is unremarkable. No inflammatory process is seen. There is no evidence of mass or adenopathy. There is no evidence of bowel obstruction. IMPRESSION: 1. 5 mm obstructing stone at the left UVJ with moderate left hydronephrosis. 2. 8.7 x 6.0 cm left renal cyst which is stable compared to the prior examination. 3. 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 Images reviewed, interpreted, and dictated by Dr. David Barrios. Transcribed by Octavio Jorgensen. Darnell Avila P[employer] SYSTEMS ENGINEER IMG CT ORDERABLES Final Result * (ABNORMAL) Comprehensive metabolic panel (01/21/2025 4:10 PM EDT) Sodium 142 136 - 145 meq/L 01/21/2025 4:38 PM EDT [facility] Potassium 4.6 3.4 - 5.1 meq/L 01/21/2025 4:38 PM EDT [facility] Chloride 106 98 - 112 meq/L 01/21/2025 4:38 PM T [facility] CO2 25 22 - 29 meq/L 01/21/2025 4:[facility] Calcium 9.3 8.4 - 10.2 mg/dL 01/21/2025 4:38 PM [facility] Glucose 105 82 - 115 mg/dL 01/21/2025 4:38 PM [facility] BUN 25.9(H) 8.4 - 25.7 mg/dL 01/21/2025 4:38 PM T [facility] Creatinine 0.79 0.72 - 1.25 mg/dL 01/21/2025 4:38 PM [facility] BUN/Creatinine 33(H) 8 - 20 01/21/2025 4:38 PM [facility] eGFR (mL/min/1.73m2) 94 >=60 mL/min/1. 73m2 01/21/2025 4:38 PM [facility] Comment:ESTIMATED GFR IS NOT ACCURATE CREATININE CLEARANCE IN PREDICTING GLOMERULAR FILTRATION RATE. ESTIMATED GFR IS NOT APPLICABLE FOR DIALYSIS PATIENTS. Albumin 4.1 3.5 - 5.0 g/dL 01/21/2025 4:38 PM EDT [facility] Alkaline Phosphatase 71 40 - 150 U/L 01/21/2025 4:38 PM EDT [facility] ALT 19 <=45 U/L 01/21/2025 4:38 PM EDT [facility] Comment: ALT2 reagent used for testing does not contain P5P supplementation and therefore may miss ALT elevations in patients with B6 deficiency. This population may be as high as 10% in the [place], with risk factors including malabsorption, drug interactions, and alcoholic hepatitis. AST 40(H) 11 - 34 U/L 01/21/2025 4:38 PM EDT [facility] Comment: AST2 reagent used for testing does not contain P5P supplementation and therefore may miss AST elevations in patients with B6 deficiency. This population may be as high as 10% in the [place], with risk factors including malabsorption, drug interactions, and alcoholic hepatitis. Total Bilirubin 0.9 0.2 - 1.2 mg/dL 01/21/2025 4:38 PM EDT [facility] Protein, Total 7.6 6.4 - 8.3 g/dL 01/21/2025 4:38 PM EDT [facility] Globulin 3.5 2.5 - 4.1 g/dL 01/21/2025 4:38 PM EDT [facility] Anion Gap 16(H) 4 - 12 01/21/2025 4:38 PM EDT [facility] A/G Ratio 1.2 0.7 - 1.9 01/21/2025 4:38 PM EDT [facility] Osmolality Calc 288.2 mOsm/kg 4:38 PM EDT [facility] Blood Venipuncture / Unknown 01/21/2025 4:10 PM EDT 01/21/2025 4:20 PM EDT us Darnell Avila APRN LAB BLOOD ORDERABLES Final Resu lt [facility] 1 [address] [address] [phone] * (ABNORMAL) CBC with Auto Diff (01/21/2025 4:10 PM EDT) WBC 10.5(H) 4.2 - 9.1 K/ L 01/21/2025 4:22 PM EDT [facility] RBC 4.70 4.63 - 6.08 M/ L 01/21/2025 4:22 PM EDT [facility] Hemoglobin 14.5 13.7 - 17.5 GM/DL 01/21/2025 4:22 PM EDT [facility] Hematocrit 42.9 40.1 - 51.0 % 01/21/2025 4:22 PM EDT [facility] MCV 91 79 - 92 fL 01/21/2025 4:22 PM EDT [facility] MCH 30.9 25.7 - 32.2 pg 01/21/2025 4:22 PM EDT [facility] MCHC 33.8 32.3 - 36.5 GM/DL 01/21/2025 4:22 PM EDT [facility] RDW 13.4 11.6 - 14.4 % 01/21/2025 4:22 PM EDT [facility] Platelets 209 140 - 375 K/CU MM 01/21/2025 4:22 PM EDT [facility] MPV 9.9 9.4 - 12.4 fL 01/21/2025 4:22 PM EDT [facility] % Neutros 87(H) 34 - 68 % 01/21/2025 4:22 PM EDT [facility] % Lymphs 8(L) 22 - 53 % 01/21/2025 4:22 PM EDT [facility] % Monos 5 5 - 12 % 01/21/2025 4:22 PM EDT [facility] % Eos 0(L) 1 - 7 % 01/21/2025 4:22 PM EDT [facility] % Baso 0 0 - 1 % 01/21/2025 4:22 PM EDT [facility] NRBC Absolute <0.01 0 - 0.012 K/ul 01/21/2025 4:22 PM EDT [facility] # Neutros 9.07(H) 1.78 - 5.38 K/ L 01/21/2025 4:22 PM EDT [facility] # Lymphs 0.87(L) 1.32 - 3.57 K/ L 01/21/2025 4:22 PM EDT [facility] # Monos 0.47 0.30 - 0.82 K/ L 01/21/2025 4:22 PM EDT [facility] # Eos <0.03(L) 0.04 - 0.54 K/ L 01/21/2025 4:22 PM EDT [facility] # Baso 0.04 0.01 - 0.08 K/ L 01/21/2025 4:22 PM EDT [facility] Immature Granulocytes-Re lative 0.20 0.01 - 0.43 % 01/21/2025 4:22 PM EDT [facility] # IG <0.03 0.00 - 0.03 K/uL 01/21/2025 4:22 PM EDT [facility] Blood Venipuncture / Unknown 01/21/2025 4:10 PM EDT 01/21/2025 4:20 PM EDT Narrative [facility] - 01/21/2025 4:22 PM EDT When CBC w/ Auto Diff is ordered the lab will add a Manual Differential as a quality check at no additional charge if: Lymphocytes greater than seventy five percent with normal or increased WBC Monocytes greater than Fifteen percent Basophil greater than four percent Bands >10% or several immature myeloids are seen on scan Blast? Flag noted Atypical Lymph flag noted us Darnell Avila APRN LAB BLOOD ORDERABLES Final Resu lt [facility] [address] [phone] documented in this encounter Visit Diagnoses Diagnosis Left nephrolithiasis- Primary documented in this encounter Administered Medications Inactive Administered Medications - up to 3 most recent administrations Medication Order MAR Action Action Date Dose Rate Site iopamidoL (ISOVUE-370) 370 mg iodine /mL (76 %) injection 75 mL 75 mL IMG once as needed, intravenous, contrast, Starting on Fri01/21/25 at 1652, For 1 dose, Intra-op Given 01/21/2025 4:58 PM EDT 75 mLs metoclopramide HCl (REGLAN) injection 5 mg 5 mg Once, intravenous, On Fri01/21/25 at 1740, For 1 dose Given 01/21/2025 5:42 PM EDT 5 mg morphine injection 2 mg 2 mg Once, intravenous, On Fri01/21/25 at 1635, For 1 dose Given 01/21/2025 4:38 PM EDT 2 mg morphine injection 2 mg 2 mg Once, intravenous, On Fri01/21/25 at 1740, For 1 dose Given 01/21/2025 5:42 PM EDT 2 mg ondansetron (ZOFRAN) injection 4 mg 4 mg Once, intravenous, On Fri01/21/25 at 1635, For 1 dose, For IV push, give over 2 - 5 minutes. Given 01/21/2025 4:38 PM EDT 4 mg sodium chloride 0.9% (NS) bolus 1,000 mL Once, intravenous, Administer over 60 Minutes, On Fri01/21/25 at 1605, For 1 dose New Bag 01/21/2025 4:21 PM EDT 1,000 mLs 1000 mL/hr documented in this encounter Active and Recently Administered Medications Times are shown in EDT. Scheduled Medication Order 01/19/2025 01/20/2025 01/21/2025 metoclopramide HCl (REGLAN) injection 5 mg (COMPLETED) 5 mg Once, intravenous, On Fri01/21/25 at 1740, For 1 dose 1741 (Given - Provid er: Coker R Liya) morphine injection 2 mg (COMPLETED) 2 mg Once, intravenous, On Fri01/21/25 at 1635, For 1 dose 1637 (Given - Provid er: Yolette Lange RN) morphine injection 2 mg (COMPLETED) 2 mg Once, intravenous, On Fri01/21/25 at 1740, For 1 dose 1741 (Given - Provid er: Sheela Nickerson) ondansetron (ZOFRAN) injection 4 mg (COMPLETED) 4 mg Once, intravenous, On Fri01/21/25 at 1635, For 1 dose, For IV push, give over 2 - 5 minutes. 1637 (Given - Provid er: Yolette Lange RN) sodium chloride 0.9% (NS) bolus (COMPLETED) 1,000 mL Once, intravenous, Administer over 60 Minutes, On Fri01/21/25 at 1605, For 1 dose 1621 (New Bag - Prov ider: Sheela Nickerson)1733 (IVPB Stopped - Provider: Sheela Nickerson) PRN Medication Order 01/19/2025 01/20/2025 01/21/2025 iopamidoL (ISOVUE-370) 370 mg iodine /mL (76 %) injection 75 mL (COMPLETED) 75 mL IMG once as needed, intravenous, contrast, Starting on Fri01/21/25 at 1652, For 1 dose, Intra-op 1658 (Given - Provid er: Virginie Felix) documented in this encounter Care Teams Television Engineer Relationship Specialty Start Date End Date Carolyngeraldobeverley ColletteLEIDY newman PCP - General Emergency Medicine 01/21/25 Barry Bernal MD [address] [place] [phone] Referring Physician Family Medicine 01/21/25 documented as of this encounter
--- OUTSIDE RECORDS SUMMARY | 2025-02-01 13:00 | XMS_ITS | Encounter Summary ---
Author Organization Healthcare Address [address] [place] [address] Care Team Providers Care Dermatology Specialist Name Role Phone Dinh Ritchie MD Primary Care Provider [phone] Encounter Details Date Type Department Care Team (Late st Contact Info) Description 02/01/2025 1:00 PM EDT Office Visit [facility] [address] [place] [id number] Chronic obstructive pulmonary disease, unspecified COPD type [...] - Inhaled Oxygen Concentration - - Weight 49.9 kg (110 lb 0.2 oz) 02/01/2025 2:00 P M EDT Height - - Body Mass Index 17.76 01/06/2025 2:00 PM EDT documented in this encounter Miscellaneous Notes * Progress Notes - Jocelyn Dozier - 02/01/2025 1:00 PM EDT Pulmonary Rehab Daily Note Patient Name: Hayes Mays Today's Date: 02/01/2025 General General Time In: 1250 Time Out: 1420 Family/Caregiver Present: No Visit Number: 6 Physician on Site: Joseph jones MD Pain: 0 Weight: 49.9 kg (110 lb 0.2 oz) Vital Signs Resting Vital Signs SpO2: 92 % Pulse: 68 Supplemental Oxygen : Room Air BP: 128/78 Dyspnea Index: 2 Falls: 0 Meds Taken: y Meds Changed: n Breathing Assessment Breathing Assessment Breathing Assessment: diminished Exercise Exercise Modalities Track Walk: Yes UBE: Yes Weights: Yes Track Walk Assistive Device: None Time: 20 Minutes Number of Laps: 17 Exercise SPO2: 97 Exercise HR: 85 Supplemental Oxygen: 2 LPM N/C (28% FiO2) Exercise BP: 126/80 Exercise Dyspnea: 3 Rate of Percieved Exertion: 4 Signs and Symptoms: x4 rest breaks Upper Body Ergometer Resistance: 2-3 Revolutions per Minute: 17 Time: 20 Distance: 1.22 METS: 2.2 Exercise SPO2: 99 Exercise HR: 87 Supplemental Oxygen: 2 LPM N/C (28% FiO2) Exercise BP: 130/82 Exercise Dyspnea: 3 Rate of Percieved Exertion: 4 Signs and Symptoms: pt tolerated well Weights Exercise Sets: 1 Reps: 10 Weight: 3 lbs Time: 10 Minutes Exercise SpO2: 97 Exercise HR: 75 Supplemental Oxygen: 2 LPM N/C (28% FiO2) Exercise Dyspnea: 2 Rate of Perceived Exertion: 2 Signs and Symptoms: pt tolerated well Cool Down Cool Down Exercises Cool Down Exercises: 10 Post-Activity Vital Signs Post-Activity Vital signs SpO2: 94 % Pulse: 70 Supplemental Oxygen : 2 LPM N/C (28% FiO2) BP: 118/80 Dyspnea Index: 2 Educational Classes/20 Minutes Physiology of Lung Disease - Part 2 (COPD, lung disease) MW Pt given education packet documented in this encounter Plan of Treatment Upcoming Encounters Date Type Department Care Team (Late st Contact Info) Description 02/15/2025 1:00 PM EDT Office Visit [facility] Pulmonary Rehab [address] [place] [address] 02/17/2025 1:00 PM EDT Office Visit [facility] Pulmonary Rehab [address] [place] [address] 02/22/2025 1:00 PM EDT Office Visit [facility] Pulmonary Rehab [address] [place] [address] 02/24/2025 1:00 PM EDT Office Visit [facility] Pulmonary Rehab [address] [place] [address] 03/01/2025 1:00 PM EDT Office Visit [facility] Pulmonary Rehab [address] [place] [address] 03/03/2025 1:00 PM EDT Office Visit [facility] Pulmonary Rehab [address] [place] [address] 08/11/2025 1:20 PM EDT Office Visit [facility] [place] [address] [facility] [place] [address] Allie Serna MD [address] [place] [address] documented as of this encounter Visit Diagnoses [...] plan has been documented for the patient 02/01/2025 3:04 PM EDT documented as of this encounter Care Teams Dermatology Specialist Relationship Specialty Start Date End Date Dinh Ritchie MD [address] [place] [address] PCP - General 09/15/20 documented as of this encounter
--- OUTSIDE RECORDS SUMMARY | 2025-02-03 13:00 | XMS_ITS | Encounter Summary ---
Author Organization Healthcare Address [address] [place] [address] Care Team Providers Care Appraiser Irrigation Tax Name Role Phone Dinh Ritchie MD Primary Care Provider [phone] Encounter Details Date Type Department Care Team (Late st Contact Info) Description 02/03/2025 1:00 PM EDT Office Visit [facility] [address] [place] [phone] Chronic obstructive pulmonary disease, unspecified COPD type [...] * Progress Notes - Jocelyn Dozier - 02/03/2025 1:00 PM EDT Pulmonary Rehab Daily Note Patient Name: Hayes Mays Today's Date: 02/03/2025 General General Time In: 1250 Time Out: 0140 Family/Caregiver Present: No Visit Number: 7 Physician on Site: Shawna Solorio MD Pain: 0 Vital Signs Resting Vital Signs SpO2: 91 % Pulse: 73 Supplemental Oxygen : Room Air Dyspnea Index: 3 Falls: 0 Meds Taken: y Meds Changed: n Breathing Assessment Breathing Assessment Breathing Assessment: diminished Exercise Exercise Modalities Track Walk: Yes Recumbent Stepper : Yes Weights: Yes Track Walk Assistive Device: None Time: 20 Minutes Number of Laps: 20 Exercise SPO2: 99 Exercise HR: 81 Supplemental Oxygen: 2 LPM N/C (28% FiO2) Exercise BP: 128/78 Exercise Dyspnea: 3 Rate of Percieved Exertion: 3 Signs and Symptoms: x4 rest breaks Seated Stepper Resistance Level: 1 Steps per Minute: 47 Time: 20 Minutes Total Steps: 324 Steps METS: 2.2 Exercise SPO2: 97 Exercise Heart Rate: 86 Supplemental Oxygen : 2 LPM N/C (28% FiO2) Exercise BP: 142/78 Exercise Dyspnea: 4 Rate of Percieved Exertion: 3 Signs and Symptoms: x rest pt extremely soa today Weights Exercise Sets: 1 Reps: 10 Weight: 3 lbs Time: 10 Minutes Exercise SpO2: 99 Exercise HR: 83 Supplemental Oxygen: 2 LPM N/C (28% FiO2) Exercise Dyspnea: 2 Rate of Perceived Exertion: 2 Signs and Symptoms: pt tolerated well Cool Down Cool Down Exercises Cool Down Exercises: 10 Post-Activity Vital Signs Post-Activity Vital signs SpO2: 94 % Pulse: 74 Supplemental Oxygen : 2 LPM N/C (28% FiO2) BP: 128/78 Dyspnea Index: 2 Educational Classes/20 Minutes Staying healthy CB Pt given education packet documented in this encounter Plan of Treatment Upcoming Encounters Date Type Department Care Team (Late st Contact Info) Description 02/15/2025 1:00 PM EDT Office Visit [facility] Pulmonary Rehab [address] [place] [address] 02/17/2025 1:00 PM EDT Office Visit [facility] Pulmonary Rehab [address] [place] [address] 02/22/2025 1:00 PM EDT Office Visit [facility] Pulmonary Rehab [address] [place] [address] 02/24/2025 1:00 PM EDT Office Visit [facility] Pulmonary Rehab [address] [place] [address] 03/01/2025 1:00 PM EDT Office Visit [facility] Pulmonary Rehab [address] [place] [address] 03/03/2025 1:00 PM EDT Office Visit [facility] Pulmonary Rehab [address] [place] [address] 08/11/2025 1:20 PM EDT Office Visit [facility] [place] [address] [place] [address] Allie Serna MD [address] [place] [address] documented as of this encounter Visit Diagnoses [...] plan has been documented for the patient 02/03/2025 2:23 PM EDT documented as of this encounter Care Teams Appraiser Irrigation Tax Relationship Specialty Start Date End Date Dinh Ritchie MD [address] [place] [address] PCP - General 09/15/20 documented as of this encounter
--- OUTSIDE RECORDS SUMMARY | 2025-02-09 15:23 | XMS_ITS | Encounter Summary ---
Author Organization Healthcare Address [address] [place] [address] Care Team Providers Care [employer] Programmer Name Role Phone Dinh Ritchie MD Primary Care Provider [phone] Encounter Details Date Type Department Care Team (Latest Contact Info) Description 02/09/2025 3:23 PM EDT - 02/09/2025 11:59 PM EDT Hospital Encounter Cardiac Imaging [address] [place] [address] History of loop recorder Discharge Disposition: Home [...] Description 02/15/2025 1:00 PM EDT Office Visit [facility] Pulmonary Rehab [address] [place] [address] 02/17/2025 1:00 PM EDT Office Visit [facility] Pulmonary Rehab [address] [place] [address] 02/22/2025 1:00 PM EDT Office Visit [facility] Pulmonary Rehab [address] [place] [address] 02/24/2025 1:00 PM EDT Office Visit [facility] Pulmonary Rehab [address] [place] [address] 03/01/2025 1:00 PM EDT Office Visit [facility] Pulmonary Rehab [address] [place] [address] 03/03/2025 1:00 PM EDT Office Visit [facility] Pulmonary Rehab [address] [place] [address] 08/11/2025 1:20 PM EDT Office Visit [facility] [place] [address] [facility] [place] [address] Allie Serna MD [address] [place] [address] documented as of this encounter Procedures Procedure Name Priority Date/Time Associated Diagnosis Comments CARDIAC DEVICE CHECK - REMOTE - LOOP RECORDER (ILR) Routine 02/09/2025 5:22 PM EDT History of loop recorder documented in this encounter Results * CARDIAC DEVICE CHECK - REMOTE - LOOP RECORDER (ILR) (02/09/2025 5:22 PM EDT) Anatomical Region Laterality Modality Other Narrative 02/10/2025 11:20 AM EDT [facility] EP - Device [facility] Remote CIED Report Name: Hayes Mays Date: 02/10/2025 : 1950 Age: 74 y.o. Reporting period: [...] rate distribution. Demonstrates appropriate sensing: Yes Arrhythmias: One new PSVT event, 36 seconds in duration. On Eliquis. Summary CIED functioning as expected, with given programming and data. Key Ramirez APRN CV IMPLANTABLE CARDIAC DEV [...] documented as of this encounter Care Teams [employer] Programmer Relationship Specialty Start Date End Date Dinh Ritchie MD [address] [facility] [place] [address] PCP - General 09/15/20 documented as of this encounter
[2025-02-14] VITALS (18 sets, daily range): BP systolic 107–152; BP diastolic 56–93; PULSE 91–134; RESP 13–28; TEMP 36.7–37; O2SAT 70–100; BMI 17.7
--- NOTE | 2025-02-14 08:42 | ECG_ITS ---
APPROVED REPORT Exam: Resting ECG HR:128 bpm ECG Measurements Heart Rate 128 AXES CA 200 P 93 QRSd 97 QRS 85 QT 299 T 82 QTc 375 Conclusion SINUS TACHYCARDIA WITH OCCASIONAL VENTRICULAR PREMATURE COMPLEXES MODERATE VOLTAGE CRITERIA FOR LVH, CONSIDER NORMAL VARIANT [MEETS CRITERIA IN ONE OF: R(aVL), S(V1), R(V5), R(V5/V6)+S(V1)] ABNORMAL RHYTHM ECG UNCONFIRMED REPORT Electronically signed by : Manuel Oreilly, 02/14/2025 15:49:41
--- NOTE | 2025-02-14 08:54 | ED_ITS ---
Discharge Plan Disposition Patient Disposition: Admitted Condition: Fair Clinical Impressions Clinical Impression: Acute hypoxemic respiratory failure, Left lower lobe pneumonia, Sepsis Discharge ED Provider: Manuel Oreilly Adult HPI General Chief complaint: Shortness of Breath/Dyspnea Stated complaint: SOA Time Seen by Provider: 02/14/25 08:53 History of Present Illness HPI narrative: Patient is a 74-year-old male with history of COPD, TIA, A-fib on Eliquis. He presents today due to concerns for shortness of breath. He reports that he has felt short of breath over the last several weeks, but this morning, could not catch his breath and could not walk across the room so called EMS. He reports feeling lightheaded this morning, but denies any chest pain. Denies any lower extremity edema. Reports fevers at home unsure of Tmax. Reports purulent cough, but reports that that has been chronic and no changes of recent. He denies any orthopnea. Not on any oxygen supplementation at home. Last time that he got antibiotics or steroids was in June. Denies any known sick contacts. Denies any other constitutional symptoms such as vomiting diarrhea or abdominal pain or dysuria or hematuria. Related Data Home Medications ?Medication ?Instructions ?Recorded ?Confirmed glycopyrrolate 9 mcg-formoterol 2 puff inhalation BID COPD 12/08/18 03/16/19 4.8 mcg HFA aerosol inhaler (Bevespi Aerosphere) Allergies Allergy/AdvReac Type Severity Reaction Status Date / Time No Known Allergies Allergy Unverified 03/16/19 12:58 [facility] Disclaimer: The information contained in this section may have been updated after the patient was seen, as this information can be updated by other users. Social History Smoking Status: Former smoker alcohol intake: never substance use type: denies use current occupational status: retired Travel in the last 8 weeks?: None Have you lived/traveled outside US in past 30 days?: No Contact w/someone who lives/traveled outside US past 30 days?: No Exposure to someone with infectious disease in past 14 days?: No Do you have a fever (greater than 100.4 F or 38 C)?: No Have you tested positive for COVID-19?: No Exposed to someone with COVID-19 in past 14 days?: No Do you have a sore throat?: No Do you have a cough?: No Do you have any weakness?: No Do you have any diarrhea?: No Are you experiencing any unusual bleeding?: No Do you have any muscle aches/pain?: No Do you have any abdominal pain?: No Are you experiencing loss of taste or smell?: No Other Medical History Have you received the Flu Vaccine for this season: No Have you received the Pneumonia Vaccine: Yes ROS Obtained: Yes All systems reviewed & no additional complaints except as documented Physical Exam General General appearance: alert, in no apparent distress and cachectic Head Head exam: atraumatic and normocephalic Eye Eye exam: Present PERRL and EOMI ENT ENT exam: Present normal oropharynx Neck Neck exam: Present full ROM and trachea midline Chest Chest inspection: Present symmetric chest wall rise Respiratory Respiratory exam: Present respiratory distress, accessory muscle use (Supraclavicular and intercostal retractions) and other (Diminished in the bases bilaterally, tachypnea); Absent stridor Cardiovascular Cardiovascular exam: Present regular rate and normal rhythm Abdominal Exam Abdominal exam: Present soft; Absent distention or tenderness Extremities Exam Extremities exam: Present full ROM Neurological Exam Neurological exam: Present alert and oriented X3 Psychiatric Psychiatric exam: Present normal mood Skin Skin exam: Present warm and dry Medical Decision Making Medical Records Screening: Per USPSTF and CDC recommendations, given the prevalence of disease in our region, it is our hospital?s policy to screen for HIV and viral Hepatitis for all patients aged 18 and over and those with ongoing risk factors. Yong Inquiry Pt receiving controlled substance: No Vital Signs: 02/14/25 08:35 02/14/25 08:35 02/14/25 08:37 Temperature 98.2 F 98.2 F Temperature Source Oral Oral Pulse Rate 121 H Pulse Rate [Right] 121 H Respiratory Rate 28 H 28 H Blood Pressure 151/92 H Blood Pressure [Right Arm] 151/92 H Blood Pressure Mean Blood Pressure Mean [Right Arm] 111 Blood Pressure Source Automatic Cuff Blood Pressure Source [Right Arm] Automatic Cuff Blood Pressure Position Supine Blood Pressure Position [Right Arm] Supine 02 Sat by Pulse Oximetry 70 L 70 L 100 Oxygen Delivery Method Room Air Room Air Non-Rebreather Oxygen Flow Rate (LPM) 15 Fraction of Inspired Oxygen 02/14/25 08:39 02/14/25 09:04 02/14/25 09:15 Temperature Temperature Source Pulse Rate 127 H 130 H Pulse Rate [Right] Respiratory Rate 16 Blood Pressure 151/92 H 152/93 H Blood Pressure [Right Arm] Blood Pressure Mean Blood Pressure Mean [Right Arm] Blood Pressure Source Blood Pressure Source [Right Arm] Blood Pressure Position Blood Pressure Position [Right Arm] 02 Sat by Pulse Oximetry 99 100 100 Oxygen Delivery Method Non-Rebreather Non-Rebreather Oxygen Flow Rate (LPM) 15 15 Fraction of Inspired Oxygen 02/14/25 09:18 02/14/25 09:18 02/14/25 09:18 Temperature Temperature Source Pulse Rate 126 H 128 H Pulse Rate [Right] Respiratory Rate Blood Pressure Blood Pressure [Right Arm] Blood Pressure Mean Blood Pressure Mean [Right Arm] Blood Pressure Source Blood Pressure Source [Right Arm] Blood Pressure Position Blood Pressure Position [Right Arm] 02 Sat by Pulse Oximetry Oxygen Delivery Method Oxygen Flow Rate (LPM) Fraction of Inspired Oxygen 30 02/14/25 09:31 02/14/25 09:45 02/14/25 10:00 Temperature Temperature Source Pulse Rate 134 H 121 H 114 H Pulse Rate [Right] Respiratory Rate 26 H 18 14 Blood Pressure 107/77 L Blood Pressure [Right Arm] Blood Pressure Mean Blood Pressure Mean [Right Arm] Blood Pressure Source Blood Pressure Source [Right Arm] Blood Pressure Position Blood Pressure Position [Right Arm] 02 Sat by Pulse Oximetry 90 L 96 95 Oxygen Delivery Method BiPAP BiPAP Oxygen Flow Rate (LPM) Fraction of Inspired Oxygen 02/14/25 10:00 02/14/25 10:10 02/14/25 10:12 Temperature Temperature Source Pulse Rate 106 H Pulse Rate [Right] Respiratory Rate 26 H Blood Pressure 113/56 L Blood Pressure [Right Arm] Blood Pressure Mean 75 Blood Pressure Mean [Right Arm] Blood Pressure Source Blood Pressure Source [Right Arm] Blood Pressure Position Blood Pressure Position [Right Arm] 02 Sat by Pulse Oximetry 96 95 Oxygen Delivery Method Nasal Cannula Nasal Cannula Oxygen Flow Rate (LPM) 3 3 Fraction of Inspired Oxygen 02/14/25 10:15 02/14/25 11:01 Temperature Temperature Source Pulse Rate 105 H 101 H Pulse Rate [Right] Respiratory Rate 13 21 Blood Pressure 132/70 Blood Pressure [Right Arm] Blood Pressure Mean 77 Blood Pressure Mean [Right Arm] Blood Pressure Source Blood Pressure Source [Right Arm] Blood Pressure Position Blood Pressure Position [Right Arm] 02 Sat by Pulse Oximetry 94 L 100 Oxygen Delivery Method Nasal Cannula Nasal Cannula Oxygen Flow Rate (LPM) 3 3 Fraction of Inspired Oxygen Lab Data Lab Results 02/14/25 08:40: WBC 9.2, RBC 4.95, Hgb 14.9, Hct 45.4, MCV 91.7, MCH 30.1, MCHC 32.8, RDW 13.4, Plt Count 309, MPV 9.9, Neut % (Auto) 85.3 H, Lymph % (Auto) 9.6 L, [place] % (Auto) 4.3, Eos % (Auto) 0.1, Baso % (Auto) 0.4, Neut # (Auto) 7.9 H, Lymph # (Auto) 0.9, [place] # (Auto) 0.4, Eos # (Auto) 0.0, Baso # (Auto) 0.0, PT 11.4, INR 1.03, Sodium 141, Potassium 4.1, Chloride 95 L, Carbon Dioxide 37 H, Anion Gap 13.1, BUN 27 H, Creatinine 0.60 L, Estimated Creat Clear 46, Estimated GFR 132, Est GFR ( Amer) 160, Glucose 122 H, Lactate 2.8 H, Calcium 9.0, Magnesium 1.8, Total Bilirubin 0.6, AST 40, ALT 28, Alkaline Phosphatase 108, Troponin I < 0.01, NT-Pro-B Natriuret Pep 273 H, Total Protein 7.6, Albumin 4.0, Globulin 3.6 H, Albumin/Globulin Ratio 1.1, TSH 0.97, HCV Ab PARUL w/Rflx PCR Qn Negative, HIV Ag/Ab Combo Qual Negative 02/14/25 09:07: VBG pH 7.34, VBG pCO2 64.8 H, VBG pO2 28.5, VBG HCO3 33.9 H, VBG Total CO2 35.9 H, VBG O2 Saturation 50.1, VBG Base Excess 8.0 H, VBG Lactic Acid 3.2 H 02/14/25 09:08: Procalcitonin 0.077 02/14/25 09:19: SARS-CoV-2 (PCR) Not detected, Influenza A Untype (PCR) Not detected, Influenza Type B (PCR) Not detected 02/14/25 08:40 02/14/25 08:40 Orders (Tests/Meds): ED MEDICATIONS Generic Name Dose Route Start Last Admin Trade Name Freq PRN Reason Stop Dose Admin Acetaminophen 650 mg 02/14/25 11:26 Acetaminophen 325mg Tab PO 03/16/25 11:25 Q4HP PRN Fever or Mild Pain (1-3) Albuterol/Ipratropium 3 ml 02/14/25 12:00 Ipratropium/Albuterol 3 Ml Neb 03/16/25 11:59 Q6RT ARIEL Ceftriaxone Sodium 2 gm/ 100 mls @ 200 mls/hr 02/15/25 11:00 Sodium Chloride IV 02/25/25 10:59 Q24H ARIEL Azithromycin 500 mg/ Sodium 250 mls @ 250 mls/hr 02/15/25 10:00 Chloride IV 02/25/25 09:59 Q24H ARIEL Ondansetron HCl 4 mg 02/14/25 11:26 Ondansetron 4mg/2ml Vial IV 03/16/25 11:25 Q8HP PRN Nausea Discontinued Medications Generic Name Dose Route Start Last Admin Trade Name Gersonq PRN Reason Stop Dose Admin Albuterol/Ipratropium 9 ml 02/14/25 09:05 02/14/25 09:18 Ipratropium/Albuterol 3 Ml [facility] 02/14/25 09:06 9 ml ONCE ONE Administration Sodium Chloride 1,000 mls @ 999 mls/hr 02/14/25 09:05 02/14/25 10:45 Sod Chlor 0.9% 1000ml Bag IV 02/14/25 10:05 Infused .Q1H1M ONE Infusion Magnesium Sulfate 2 gm in 50 mls @ 50 mls/hr 02/14/25 09:05 02/14/25 10:57 Magnesium Sulfate 2gm/50ml Premix IV 02/14/25 10:04 Infused ONCE ONE Infusion Ceftriaxone Sodium 2 gm/ 100 mls @ 200 mls/hr 02/14/25 10:23 02/14/25 11:50 Sodium Chloride IV 02/14/25 10:52 Infused Q24H ONE Infusion Azithromycin 500 mg/ Sodium 250 mls @ 250 mls/hr 02/14/25 10:23 Chloride IV 02/14/25 10:24 ONCE ONE Sodium Chloride 500 mls @ 999 mls/hr 02/14/25 10:30 02/14/25 11:50 Sod Chloride 0.9% 500ml Bag IV 02/14/25 11:00 Infused .Q31M ONE Infusion Iopamidol 70 ml 02/14/25 10:34 02/14/25 10:36 Iopamidol-370 (76%);100ml Bottle IV 02/14/25 10:35 70 ml ONCE ONE Administration Methylprednisolone Sodium Succinate 125 mg 02/14/25 09:08 02/14/25 09:32 Methylprednisolone Sod Succ 125mg Vial IV 02/14/25 09:09 125 mg ONCE ONE Administration Sodium Chloride 40 ml 02/14/25 10:34 02/14/25 10:36 0.9 % Sodium Chloride 50 Ml Vial IV 02/14/25 10:35 40 ml ONCE ONE Administration Sodium Chloride 10 ml 02/14/25 10:34 02/14/25 10:36 Sodium Chloride 0.9% 10ml Syr (Rad Only) IV 02/14/25 10:35 10 ml ONCE ONE Administration ORDERS Category Date Time Status CTA Chest [CT angio chest PE protocol] Stat Cat Scan 02/14/25 09:05 Taken XR chest portable Stat Exams 02/14/25 09:05 Completed BNP [NT Pro Brain Natriuretic Pep.] Stat Lab 02/14/25 08:40 Completed CBC w/Auto Diff [Complete Blood Count Auto Diff] Stat Lab 02/14/25 08:40 Completed CMP [Comprehensive Metabolic Panel] Stat Lab 02/14/25 08:40 Completed Complete Blood Count Auto Diff AMLAB Lab 02/15/25 06:00 Ordered Complete Blood Count Auto Diff AMLAB Lab 02/16/25 06:00 Ordered Complete Blood Count Auto Diff AMLAB Lab 02/17/25 06:00 Ordered Comprehensive Metabolic Panel AMLAB Lab 02/15/25 06:00 Ordered Comprehensive Metabolic Panel AMLAB Lab 02/16/25 06:00 Ordered Comprehensive Metabolic Panel AMLAB Lab 02/17/25 06:00 Ordered HIV Combo Stat Lab 02/14/25 08:40 Completed Hepatitis C Ab Qual. W/ RFX Stat Lab 02/14/25 08:40 Completed Lactic Acid Stat Lab 02/14/25 08:40 Completed Lipid Panel AMLAB Lab 02/15/25 06:00 Ordered MAG [Magnesium] Stat Lab 02/14/25 08:40 Completed Magnesium AMLAB Lab 02/15/25 06:00 Ordered Magnesium AMLAB Lab 02/16/25 06:00 Ordered Magnesium AMLAB Lab 02/17/25 06:00 Ordered PT INR [Prothrombin Time INR] Stat Lab 02/14/25 08:40 Completed Phosphorous AMLAB Lab 02/15/25 06:00 Ordered Procalcitonin Stat Lab 02/14/25 09:08 Completed Rapid PCR Covid and Flu A/B Stat Lab 02/14/25 09:19 Completed TSH [Thyroid Stimulating Hormone] Stat Lab 02/14/25 08:40 Completed Trop I [Troponin I] Stat Lab 02/14/25 08:40 Completed Troponin I Q3H Lab 02/14/25 12:15 Ordered Troponin I Q3H Lab 02/14/25 15:15 Ordered Blood Culture Stat Micro 02/14/25 09:24 Received VBG [Venous Blood Gas] Stat RT 02/14/25 09:07 Completed ECG Data Tracing #1: I reviewed this ECG and interpreted as documented below: Sinus tachycardia at a rate of 128, there is significant artifact, but no obvious acute ischemic ST change. Has a PVC. Left atrial enlargement. Medical Decision Narrative: 74-year-old male with a history of COPD presenting today for shortness of breath. Been happening for months, but worsening acutely. On arrival, he is tachycardic into the 130s, blood pressure stable, but is requiring nonrebreather to maintain oxygen saturations above 90%. He was 70% on arrival on room air. I immediately put him on BiPAP due to concern for hypercarbic respiratory failure he is very diminished in the bases, needs flow in addition to treating him for the COPD with DuoNebs and Solu-Medrol and magnesium. I suspect pneumonia superimposed could be playing a role, but admission given patient's history of PE and his tachycardia, will proceed with CT PE. ACS is on the differential, though felt to be less likely given no chest pain we will proceed with troponins EKG. Hematologic labs for electrolyte derangement. Weaned to nasal cannula oxygen given no hypercarbia on VBG. Patient is meeting sepsis criteria with tachycardia tachypnea with a likely source of pneumonia in conjunction with elevated lactate, will empirically treat with a dose of Rocephin and azithromycin. 30 cc/kg fluid resuscitation completed awaiting chest x-ray and PE study. CT independently interpreted by myself demonstrate a left lower lobe pneumonia. Still on 3 L nasal cannula oxygen. Thompson reasonable consult hospitalist for admission. I I 3 L nasal cannula. had an interactive discussion with Dr. Gonzalez and his team and ultimately they agreed to admit the patient to their service for further workup or definitive management patient be transferred hemodynamically stable condition on Critical Care Critical Care Time Critical Care Time: Yes Attestation: On 02/14/25, the high probability of a clinically significant, sudden or life threatening deterioration of the following system(s) required my full and direct attention, intervention and personal management. The time I documented below is in addition to time spent performing reported procedures but includes the following listed in this critical care notation. Total Time Total Critical Care Time: 32
--- OUTSIDE RECORDS SUMMARY | 2025-02-14 08:58 | XMS_ITS | Encounter Summary ---
Author Organization [employer] ([place], [place], [place], [place]) Address [address] [place] [address] Care Team Providers Care Billboard Poster Helper Name Role Phone Collette Rendon APRN Primary Care Provider [phone] Barry Bernal MD Unavailable [phone] Encounter Details Date Type Department Care Team (Late st Contact Info) Description 01/20/2020 Transcribed Document [facility] [address] [place] [address] Armond Shell MD [address] [place] [address] Social History Tobacco Use Types Packs/Day Years [...] PERFORMED: 1. Right femoral percutaneous access, large-bore 14-Haitian sheath. 2. Left femoral arterial exposure for [...] infrarenal aortic aneurysm repair. OPERATIVE FINDINGS: 1. Grimsley Excluder 31 main body with right-sided contralateral [...] bilateral common femoral arteries were accessed. A 6-Haitian sheath was placed bilaterally. Two Perclose devices were used within both right and left groin. A 14-Haitian sheath was placed within the right groin and an 18 within the left. Systemic heparinization was performed, and aortography was performed. Left renal artery did not appear, although it had about 60% stenosis in the proximal segment, it was not as bad as it was expected on CT angiography. Decision was made not to proceed with stenting of this section. Grimsley main body device was advanced to the [...] about 3 cm of seal zone. A Grimsley aortic moulding balloon was used to angioplasty proximal and distal fixation points as well as junction of the graft. Completion aortography demonstrated no evidence of an endoleak. Both renals and bilateral internal and external iliac arteries remained patent. The right femoral sheath was removed, and Perclose devices were successful in achieving hemostasis. When the left 18-Haitian sheath was removed, the Perclose did not [...] immediate complications. EBL was about 200 mL. /[id number] Armond Shell MD NNA/AQ / NNA / MODL /[id number] documented in this encounter Plan of Treatment Upcoming Encounters Date Type Department Care Team (Late st Contact Info) Description 05/11/2025 1:30 PM EST Office Visit [facility] Pulmonology - [address] [place] [id number] Mark Love MD [address] [place] [address] documented as of this encounter Visit Diagnoses Not on filedocumented in this encounter Care Teams Billboard Poster Helper Relationship Specialty Start Date End Date Carolyngeraldobeverley ColletteLEIDY newman PCP - General Emergency Medicine 01/21/25 Barry Bernal MD [address] [place] [address] Referring Physician Family Medicine 01/21/25 documented as of this encounter
--- OUTSIDE RECORDS SUMMARY | 2025-02-14 08:58 | XMS_ITS | Encounter Summary ---
Author Organization [employer] ([place], [place], [place], [place]) Address [address] [place] [address] Care Team Providers Care Jewel Lathe Operator Name Role Phone Collette Rendon APRN Primary Care Provider [phone] Barry Bernal MD Unavailable [phone] Encounter Details Date Type Department Care Team (Late st Contact Info) Description 01/20/2020 Transcribed Document [facility] [address] [place] [address] Armond Shell MD [address] [facility] [place] [address] Social History Tobacco Use Types Packs/Day Years [...] Patent foramen ovale -repaired / SNOMED CT 425053225 / Confirmed Lung nodule / SNOMED CT 4871742660 / Confirmed H/O: stroke 01/2019- word finding problems / SNOMED CT 4967641756 / Confirmed Cyst of left kidney / SNOMED CT 0038149841 / Confirmed COPD (chronic obstructive pulmonary disease) / SNOMED CT 05662498 / Confirmed At risk for sleep apnea / IMO [id number] / Confirmed Abdominal aortic aneurysm / SNOMED CT 445918470 / Confirmed, Active Problems (7) Abdominal aortic [...] Temp 97.8 (JAN 19 09:30) 97.8 (JAN 19 09:30) 97.8 (JAN 19 09:30) Mon HR 77 (JAN 19:30) 77 (JAN 19 09:30) 77 (JAN 19 09:30) Resp Rate 20 (JAN 19 09:30) 20 (JAN 19 09:30) 20 (JAN 19 09:30) SBP H 165 (JAN 19 09:30) H 165 (JAN 19 09:30) H 165 (JAN 19 09:30) DBP 89 (JAN 19 09:30) 89 (JAN 19 09:30) 89 (JAN 19 09:30) , Measurements from flowsheet : Measurements 01/20/2020 9:38 EDT Height Source Measured Height Entry Format [place] Height/Length, SALVADOREAN (ft) 5 ft Height/Length SALVADOREAN 6 Inch CLINICALHEIGHT 167.64 cm [place] Body Weight 63 kg Weight Source Standing scale Weight Entry Format [place] Weight [place] lb 137.9 lb CLINICALWEIGHT 62.68 kg Body [...] of motion, Normal strength. Integumentary: Warm, Dry, [place]. Neurologic: Alert, Oriented. Psychiatric: Cooperative, Appropriate mood & affect. Review / Management Results review: No qualifying data available. Impression and Plan Condition: Stable. documented in this encounter Plan of Treatment Upcoming Encounters Date Type Department Care Team (Late st Contact Info) Description 05/11/2025 1:30 PM EST Office Visit [facility] Pulmonology - [address] [place] [address] Mark Love MD [address] [place] [address] documented as of this encounter Visit Diagnoses Not on filedocumented in this encounter Care Teams Jewel Lathe Operator Relationship Specialty Start Date End Date Collette Rendon APRN PCP - General Emergency Medicine 01/21/25 Barry Bernal MD [address] [place] [address] Referring Physician Family Medicine 01/21/25 documented as of this encounter
--- OUTSIDE RECORDS SUMMARY | 2025-02-14 08:58 | XMS_ITS | Encounter Summary ---
Author Organization [employer] ([place], [place], [place], [place]) Address [address] [place] [address] Care Team Providers Care Aeronautical Engineering Teacher Name Role Phone Collette Rendon APRN Primary Care Provider [phone] Barry Bernal MD Unavailable [phone] Encounter Details Date Type Department Care Team (Late st Contact Info) Description 01/20/2020 Transcribed Document [facility] Family Medicine [address] [place] [address] ProviderDulce Maria MD [address] [id number] Social History Tobacco Use Types Packs/Day Years Used Date Smoking Tobacco: Never Assessed Sex and Gender Information Value Date Recorded Sex Assigned at Male 10/30/2021 8:44 PM CDT Legal Sex Male 8:44 PM CDT Gender Identity Male 10/30/2021 8:44 PM CDT Sexual Orientation Not on file documented as of this encounter Miscellaneous Notes * Cerner Conversion Note - Dulce Maria Duncan MD - 01/20/2020 12:31 PM CDT Pain Assessment Entered On: 01/20/2020 17:05 EDT Performed On: 01/20/2020 17:03 EDT by JAVY WILLIAMSON RN Intervention Information: acetaminophen-HYDROcodone Performed by JAVY WILLIAMSON RN on 01/20/2020 16:03:00 EDT acetaminophen-HYDROcodone,2Tab Oral,Pain (Severe 7-10) Pain Assessment Pain Assessment : Follow-up assessment Pain Improved by Intervention : Yes JAVY WILLIAMSON RN - 01/20/2020 17:05 EDT documented in this encounter Plan of Treatment Upcoming Encounters Date Type Department Care Team (Late st Contact Info) Description 05/11/2025 1:30 PM EST Office Visit [facility] Pulmonology - [address] [place] [phone] Mark Love MD [address] [place] [address] documented as of this encounter Visit Diagnoses Not on filedocumented in this encounter Care Teams Aeronautical Engineering Teacher Relationship Specialty Start Date End Date CarolyngeraldoCollette loweryLEIDY PCP - General Emergency Medicine 01/21/25 Barry Bernal MD [address] [place] [address] Referring Physician Family Medicine 01/21/25 documented as of this encounter
--- OUTSIDE RECORDS SUMMARY | 2025-02-14 08:58 | XMS_ITS | Encounter Summary ---
Author Organization [employer] ([place], [place], [place], [place]) Address [address] [place] [address] Care Team Providers Care Research Archaeologist Name Role Phone Collette Rendon APRN Primary Care Provider [phone] Barry Bernal MD Unavailable [phone] Encounter Details Date Type Department Care Team (Late st Contact Info) Description 01/20/2020 Transcribed Document [facility] Family Medicine [address] [place] [address] ProviderDulce Maria MD [address], [place] [id number] Social History Tobacco Use Types Packs/Day Years Used Date Smoking Tobacco: Never Assessed Sex and Gender Information Value Date Recorded Sex Assigned at Male 10/30/2021 8:44 PM CDT Legal Sex Male 8:44 PM CDT Gender Identity Male 10/30/2021 8:44 PM CDT Sexual Orientation Not on file documented as of this encounter Miscellaneous Notes * [employer] Conversion Note - Dulce Maria ProviderMD - 01/20/2020 9:38 AM CDT PAT Adult Entered On: 01/20/2020 9:44 EDT Performed On: 01/20/2020 9:38 EDT by LORENA ORO RN Height and Weight, Clinical Dosing Height Source : Measured Height Entry Format : Vaughn Height, Feet : 5 ft(Converted to: 152 cm, 60 Inch) Height, Inches : 6 Inch(Converted to: 0 ft 6 Inch, 15.24 cm) Clinical Height : 167.64 cm Weight Source : Standing scale Weight Entry Format : Vaughn Clinical Dosing Weight : 62.68 kg Weight, Pounds : 137.9 lb Body Surface Area (BSA) : 1.71 m2 Body Mass Index : 22.3 kg/m2 Dearing Body Weight : 63 kg LORENA ORO RN - 01/20/2020 9:38 EDT Health Histories Smoking Status : Former smoker, quit more than 30 days ago Smokeless Tobacco Status : Never Implant/Device Type, Recruiter and Model : loop cardiac recorder; cardiac [...] LORENA ORO RN - 01/20/2020 9:38 EDT [place] Suicide Severity Rating Scale (C-SSRS) CSSRS Past [...] lung to monitor nodule 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 Needed : No LORENA ORO RN - 01/20/2020 9:45 EDT Support Person/Pt Rep Contact Information : Dalton Reeves [phone] Want Family/Rep/Phys Notified of Admit : No [...] - 01/20/2020 9:45 EDT Electronically signed by Victorina [facility] Conversion [employer] Systems Administrator Cerner at 08/21/2022 11:51 AM CDT documented in this encounter Plan of Treatment Upcoming Encounters Date Type Department Care Team (Late st Contact Info) Description 05/11/2025 1:30 PM EST Office Visit [facility] Pulmonology - [address] [place] [id number] Mark Love MD [address] [place] [address] documented as of this encounter Visit Diagnoses Not on filedocumented in this encounter Care Teams Research Archaeologist Relationship Specialty Start Date End Date Collette Rendon APRN PCP - General Emergency Medicine 01/21/25 Barry Bernal MD [address] [place] [id number] Referring Physician Family Medicine 01/21/25 documented as of this encounter
--- OUTSIDE RECORDS SUMMARY | 2025-02-14 08:58 | XMS_ITS | Encounter Summary ---
Author Organization [employer] ([place], [place], [place], [place]) Address [address] [place] [address] Care Team Providers Care Maternity Floor Supervisor Name Role Phone Collette Rendon APRN Primary Care Provider [phone] Barry Bernal MD Unavailable [phone] Encounter Details Date Type Department Care Team (Late st Contact Info) Description 01/20/2020 Transcribed Document [facility] Family Medicine [address] [place] [address] ProviderDulce Maria MD [address] [place] [address] Social History Tobacco Use Types [...] - Dulce Maria Duncan MD - 01/20/2020 5:00 PM CDT Chart Check - Review Order Profile Entered On: 01/20/2020 17:40 EDT Performed On: 01/20/2020 17:00 EDT by JAVY WILLIAMSON, DINA Chart Check Powerplans Initiated/Discontinued as Appropriate : Yes All Active Orders Reviewed : Yes JAVY WILLIAMSON RN - 01/20/2020 17:40 EDT Electronically signed by Victorina [facility] Conversion Licensed Vocational Nurse Cerluis alfredo at 08/21/2022 12:06 PM CDT documented in this encounter Plan of Treatment Upcoming Encounters Date Type Department Care Team (Late st Contact Info) Description 05/11/2025 1:30 PM EST Office Visit [facility] Pulmonology - [address] [place] [address] Mark Love MD [address] [place] [address] documented as of this encounter Visit Diagnoses Not on filedocumented in this encounter Care Teams Maternity Floor Supervisor Relationship Specialty Start Date End Date Collette Rendon, HEAVY THREADER PCP - General Emergency Medicine 01/21/25 Barry Bernal MD [facility] [place] [address] Referring Physician Family Medicine 01/21/25 documented as of this encounter
--- OUTSIDE RECORDS SUMMARY | 2025-02-14 08:58 | XMS_ITS | Data Portability ---
Author Organization [facility] Salvador [place] CLOSED Address [address] [address] [facility] [address] [place] [address] Care Team Providers Care Low Pressure Firer Name Role Phone FAVIOLA GRISSOM Primary Care Provider Assessment No assessment recorded. Plan of Treatment Reminders Order Date Submit Date Provider Last Modified By Organization Details Last Modified Time Details Appointments RECHECK 2025 01:00P M BECKY BUCK MD Not available Not available Not available Lab urinalysi s panel, auto 2024 025 [facility], [address], [place], [address], 12/24/2024 07:32:30 PSA, serum or plasma 2024 025 [email or web address] [facility], [address], [place], [address], 12/24/2024 07:32:30 PSA, serum or plasma 2024 025 [email or web address] [facility], [address], [place], [address], 06/13/2024 17:20:20 urinalysi s panel, auto 2023 024 [email or web address] [facility], [address], [address], [place], [address], 04/21/2024 16:05:32 PSA, serum or plasma [address] [facility], [address], [address], [place], [address], 04/21/2024 16:05:32 urinalysi s panel, auto [address] [facility], [address], [address], [place], [address], 03/19/2023 21:04:58 PSA, serum or plasma 2022 023 [address] [facility], [address], [address], [place], [address], 03/19/2023 21:04:59 urinalysi s panel, auto [address] [facility], [address], [address], [place], [address], 03/19/2022 18:17:30 Referral None recorded. Procedures None recorded. Surgeries None recorded. Imaging None recorded. Medication Orders cefuroxim e axetil 500 mg tablet 2023 025 [facility], [address] [facility] [address], [address], [place], [address], 12/08/2024 13:33:11 Patient TargetsNo targets recorded. Patient InstructionsNo instructions recorded. Reason for Referral None Reported. Results Created Date Observation Date Name Description Value Unit Range Abnormal Flag Note LastModifiedBy Organization Detail LastModifiedTime 03/18/20 22 03/18/2022 urina lysis panel , auto Unknown Analyte Clean Catch Not Available Pending sale to [facility] [address], [place], [address], 03/18/2022 11:50:49 03/18/20 22 03/18/2022 urina lysis panel , auto Unknown Analyte Yellow Not Available [facility] [address], [place], [address], 03/18/2022 11:50:49 03/18/20 22 03/18/2022 urina lysis panel , auto Unknown Analyte Clear Not Available [facility] [address], [place], [address], 03/18/2022 11:50:49 03/18/20 22 03/18/2022 urina lysis panel , auto Unknown Analyte 1.020 Not Available [facility] [address], [place], [address], 03/18/2022 11:50:49 03/18/20 22 03/18/2022 urina lysis panel , auto Unknown Analyte 6.0 Not Available [facility] [address], [place], [address], 03/18/2022 11:50:49 03/18/20 22 03/18/2022 urina lysis panel , auto Unknown Analyte Negati ve Not Available Pending sale to [facility] [address], [place], [address], 03/18/2022 11:50:49 03/18/20 22 03/18/2022 urina lysis panel , auto Unknown Analyte Negati ve Not Available Pending sale to [facility] [address], [place], [address], 03/18/2022 11:50:49 03/18/2003/18/2022 urina lysis panel , auto Unknown Analyte Negati ve Not Available Pending sale to [facility] [address], [place], [address], 03/18/2022 11:50:49 03/18/2003/18/2022 urina lysis panel , auto Unknown Analyte Normal Not Available [facility] [address], [place], [address], 03/18/2022 11:50:49 03/18/20 22 03/18/2022 urina lysis panel , auto Unknown Analyte Negati ve Not Available Pending sale to [facility] [address], [place], [address], 03/18/2022 11:50:49 03/18/2003/18/2022 urina lysis panel , auto Unknown Analyte Normal Not Available [facility] [address], [place], [address], 03/18/2022 11:50:49 03/18/2003/18/2022 urina lysis panel , auto Unknown Analyte Negati ve Not Available Pending sale to [facility] [address], [place], [address], 03/18/2022 11:50:49 03/18/20 22 03/18/2022 urina lysis panel , auto Unknown Analyte Negati ve Not Available Pending sale to [facility] [address], [place], [address], 03/18/2022 11:50:49 03/19/2003/19/2023 PSA, serum or plasm a PSA 2.3 NG/mL 0.0 - 4.0 Not Available [facility] [address], [place], [address], 03/19/2023 15:25:28 03/19/2003/19/2023 urina lysis panel , auto Unknown Analyte Clean Catch Not Available [facility] [address], [place], [address], 03/19/2023 14:06:56 03/19/20 23 03/19/2023 urina lysis panel , auto Unknown Analyte Yellow Not Available [facility] [address], [place], [address], 03/19/2023 14:06:56 03/19/2003/19/2023 urina lysis panel , auto Unknown Analyte Clear Not Available [facility] [address], [place], [address], 03/19/2023 14:06:56 03/19/20 23 03/19/2023 urina lysis panel , auto Unknown Analyte 1.020 Not Available [facility] [address], [place], [address], 03/19/2023 14:06:56 03/19/2003/19/2023 urina lysis panel , auto Unknown Analyte 1.003- 1.035 Not Available [facility] [address], [place], [address], 03/19/2023 14:06:56 03/19/2003/19/2023 urina lysis panel , auto Unknown Analyte 6.5 Not Available [facility] [address], [place], [address], 03/19/2023 14:06:56 03/19/2003/19/2023 urina lysis panel , auto Unknown Analyte 5.0-8. 0 Not Available [facility] [address], [place], [address], 03/19/2023 14:06:56 03/19/20 23 03/19/2023 urina lysis panel , auto Unknown Analyte 25 Sadie/ul Trace Not Available [facility] [address], [place], [address], 03/19/2023 14:06:56 03/19/2003/19/2023 urina lysis panel , auto Unknown Analyte Negati ve Not Available [facility] [address], [place], [address], 03/19/2023 14:06:56 03/19/2003/19/2023 urina lysis panel , auto Unknown Analyte Negati ve Not Available [facility] [address], [place], [address], 03/19/2023 14:06:56 03/19/20 23 03/19/2023 urina lysis panel , auto Unknown Analyte Negati ve Not Available [facility] [address], [place], [address], 03/19/2023 14:06:56 03/19/2003/19/2023 urina lysis panel , auto Unknown Analyte Trace Not Available [facility] [address], [place], [address], 03/19/2023 14:06:56 03/19/2003/19/2023 urina lysis panel , auto Unknown Analyte Negati ve Not Available [facility] [address], [place], [address], 03/19/2023 14:06:56 03/19/2003/19/2023 urina lysis panel , auto Unknown Analyte Normal Not Available [facility] [address], [place], [address], 03/19/2023 14:06:56 03/19/2003/19/2023 urina lysis panel , auto Unknown Analyte Normal Not Available [facility] [address], [place], [address], 03/19/2023 14:06:56 03/19/2003/19/2023 urina lysis panel , auto Unknown Analyte 15 mg/dl (Sm) Not Available [facility] [address], [place], [address], 03/19/2023 14:06:56 03/19/2003/19/2023 urina lysis panel , auto Unknown Analyte Negati ve Not Available [facility] [address], [place], [address], 03/19/2023 14:06:56 03/19/20 23 03/19/2023 urina lysis panel , auto Unknown Analyte 1 mg/dl Not Available [facility] [address], [place], [address], 03/19/2023 14:06:56 03/19/20 23 03/19/2023 urina lysis panel , auto Unknown Analyte Normal 1 mg/dl Not Available [facility] [address], [place], [address], 03/19/2023 14:06:56 03/19/20 23 03/19/2023 urina lysis panel , auto Unknown Analyte 1 mg/dl (+) Not Available [facility] [address], [place], [address], 03/19/2023 14:06:56 03/19/20 23 03/19/2023 urina lysis panel , auto Unknown Analyte Negati ve Not Available [facility] [address], [place], [address], 03/19/2023 14:06:56 03/19/20 23 03/19/2023 urina lysis panel , auto Unknown Analyte Negati ve Not Available [facility] [address], [place], [address], 03/19/2023 14:06:56 03/19/20 23 03/19/2023 urina lysis panel , auto Unknown Analyte Negati ve Not Available [facility] [address], [place], [address], 03/19/2023 14:06:56 04/21/20 24 04/21/2024 PSA, serum or plasm a PSA 12.3 NG/mL 0.0 - 4.0 Not Available [facility] [address], [place], [address], 04/21/2024 15:36:48 04/21/20 24 04/21/2024 urina lysis panel , auto Unknown Analyte Clean Catch Not Available [facility] [address], [place], [address], 04/21/2024 15:14:06 04/21/20 24 04/21/2024 urina lysis panel , auto Unknown Analyte Yellow Not Available [facility] [address], [place], [address], 04/21/2024 15:14:06 04/21/20 24 04/21/2024 urina lysis panel , auto Unknown Analyte Clear Not Available [facility] [address], [place], [address], 04/21/2024 15:14:06 04/21/20 24 04/21/2024 urina lysis panel , auto Unknown Analyte 1.015 Not Available [facility] [address], [place], [address], 04/21/2024 15:14:06 04/21/20 24 04/21/2024 urina lysis panel , auto Unknown Analyte 1.003- 1.035 Not Available [facility] [address], [place], [address], 04/21/2024 15:14:06 04/21/20 24 04/21/2024 urina lysis panel , auto Unknown Analyte 6.5 Not Available [facility] [address], [place], [address], 04/21/2024 15:14:06 04/21/20 24 04/21/2024 urina lysis panel , auto Unknown Analyte 5.0-8. 0 Not Available [facility] [address], [place], [address], 04/21/2024 15:14:06 04/21/20 24 04/21/2024 urina lysis panel , auto Unknown Analyte Negati ve Not Available [facility] [address], [place], [address], 04/21/2024 15:14:06 04/21/20 24 04/21/2024 urina lysis panel , auto Unknown Analyte Negati ve Not Available [facility] [address], [place], [address], 04/21/2024 15:14:06 04/21/20 24 04/21/2024 urina lysis panel , auto Unknown Analyte Negati ve Not Available [facility] [address], [place], [address], 04/21/2024 15:14:06 04/21/20 24 04/21/2024 urina lysis panel , auto Unknown Analyte Negati ve Not Available [facility] [address], [place], [address], 04/21/2024 15:14:06 04/21/20 24 04/21/2024 urina lysis panel , auto Unknown Analyte Negati ve Not Available [facility] [address], [place], [address], 04/21/2024 15:14:06 04/21/20 24 04/21/2024 urina lysis panel , auto Unknown Analyte Negati ve Not Available [facility] [address], [place], [address], 04/21/2024 15:14:06 04/21/20 24 04/21/2024 urina lysis panel , auto Unknown Analyte Normal Not Available [facility] [address], [place], [address], 04/21/2024 15:14:06 04/21/20 24 04/21/2024 urina lysis panel , auto Unknown Analyte Normal Not Available [facility] [address], [place], [address], 04/21/2024 15:14:06 04/21/20 24 04/21/2024 urina lysis panel , auto Unknown Analyte Negati ve Not Available [facility] [address], [place], [address], 04/21/2024 15:14:06 04/21/20 24 04/21/2024 urina lysis panel , auto Unknown Analyte Negati ve Not Available [facility] [address], [place], [address], 04/21/2024 15:14:06 12/18/20 24 04/21/2024 urina lysis panel , auto Unknown Analyte Normal Not Available [facility] [address], [place], [address], 04/21/2024 15:14:06 04/21/20 24 04/21/2024 urina lysis panel , auto Unknown Analyte Normal 1 mg/dl Not Available [facility] [address], [place], [address], 04/21/2024 15:14:06 04/21/20 24 04/21/2024 urina lysis panel , auto Unknown Analyte Negati ve Not Available [facility] [address], [place], [address], 04/21/2024 15:14:06 04/21/20 24 04/21/2024 urina lysis panel , auto Unknown Analyte Negati ve Not Available [facility] [address], [place], [address], 04/21/2024 15:14:06 04/21/20 24 04/21/2024 urina lysis panel , auto Unknown Analyte Negati ve Not Available [facility] [address], [place], [address], 04/21/2024 15:14:06 04/21/20 24 04/21/2024 urina lysis panel , auto Unknown Analyte Negati ve Not Available [facility] [address], [place], [address], 04/21/2024 15:14:06 06/09/19 25 06/09/2024 PSA, serum or plasm a PSA 5.4 NG/mL 0.0 - 4.0 Not Available [facility] [address], [place], [address], 06/09/2024 13:28:57 12/09/19 25 12/08/2024 PSA, serum or plasm a PSA 3.0 NG/mL 0.0 - 4.0 Not Available [facility] [address], [place], [address], 12/08/2024 13:29:40 12/09/19 25 12/08/2024 urina lysis panel , auto Unknown Analyte Clean Catch Not Available [facility] [address], [place], [address], 12/08/2024 13:02:09 12/09/19 25 12/08/2024 urina lysis panel , auto Unknown Analyte Yellow Not Available [facility] [address], [place], [address], 12/08/2024 13:02:09 12/09/19 25 12/08/2024 urina lysis panel , auto Unknown Analyte Clear Not Available [facility] [address], [place], [address], 12/08/2024 13:02:09 12/09/19 25 12/08/2024 urina lysis panel , auto Unknown Analyte 1.020 Not Available [facility] [address], [place], [address], 12/08/2024 13:02:09 12/09/1912/08/2024 urina lysis panel , auto Unknown Analyte 1.003 - 1.030 Not Available [facility] [address], [place], [address], 12/08/2024 13:02:12/09/1912/08/2024 urina lysis panel , auto Unknown Analyte 5.0 Not Available [facility] [address], [place], [address], 12/08/2024 13:02:12/09/1912/08/2024 urina lysis panel , auto Unknown Analyte 5.0 - 8.0 Not Available [facility] [address], [place], [address], 12/08/2024 13:02:12/09/1912/08/2024 urina lysis panel , auto Unknown Analyte Negati ve Not Available [facility] [address], [place], [address], 12/08/2024 13:02:12/09/1912/08/2024 urina lysis panel , auto Unknown Analyte Negati ve Not Available [facility] [address], [place], [address], 12/08/2024 13:02:12/09/1912/08/2024 urina lysis panel , auto Unknown Analyte Negati ve Not Available [facility] [address], [place], [address], 12/08/2024 13:02:12/09/19 25 12/08/2024 urina lysis panel , auto Unknown Analyte Negati ve Not Available [facility] [address], [place], [address], 12/08/2024 13:02:09 12/09/19 25 12/08/2024 urina lysis panel , auto Unknown Analyte Negati ve Not Available [facility] [address], [place], [address], 12/08/2024 13:02:12/09/1912/08/2024 urina lysis panel , auto Unknown Analyte Negati ve Not Available [facility] [address], [place], [address], 12/08/2024 13:02:09 12/09/19 25 12/08/2024 urina lysis panel , auto Unknown Analyte Normal Not Available [facility] [address], [place], [address], 12/08/2024 13:02:09 12/09/19 25 12/08/2024 urina lysis panel , auto Unknown Analyte Normal Not Available [facility] [address], [place], [address], 12/08/2024 13:02:12/09/19 25 12/08/2024 urina lysis panel , auto Unknown Analyte Negati ve Not Available [facility] [address], [place], [address], 12/08/2024 13:02:09 12/09/19 25 12/08/2024 urina lysis panel , auto Unknown Analyte Negati ve Not Available [facility] [address], [place], [address], 12/08/2024 13:02:09 12/09/19 25 12/08/2024 urina lysis panel , auto Unknown Analyte Normal Not Available [facility] [address], [place], [address], 12/08/2024 13:02:09 12/09/19 25 12/08/2024 urina lysis panel , auto Unknown Analyte Normal Not Available [facility] [address], [place], [address], 12/08/2024 13:02:09 12/09/19 25 12/08/2024 urina lysis panel , auto Unknown Analyte Negati ve Not Available [facility] [address], [place], [address], 12/08/2024 13:02:09 12/09/19 25 12/08/2024 urina lysis panel , auto Unknown Analyte Negati ve Not Available [facility] [address], [place], [address], 12/08/2024 13:02:09 12/09/19 25 12/08/2024 urina lysis panel , auto Unknown Analyte Negati ve Not Available [facility] [address], [place], [address], 12/08/2024 13:02:09 12/09/19 25 12/08/2024 urina lysis panel , auto Unknown Analyte Negati ve Not Available [facility] [address], [place], [address], 12/08/2024 13:02:09 03/12/20 22 03/12/2022 CT, abdom en, w/wo contr ast No observ ation record ed. [address], [place], [address], 03/20/2022 11:39:44 03/12/20 23 03/12/2023 US, retro perit oneum , limit ed No observ ation record ed. [place] [id number] [facility] [address] [place], [address], 03/23/2023 23:28:20 04/06/20 24 04/06/2024 US, retro perit oneum , limit ed No observ ation record ed. [address] [facility], [place], [address], 04/08/2024 22:19:13 Result Notes None recorded. Procedures Surgical History Date Name Laterality Status Provider Name and Address Organization Details Recorded Time Heart Surgery completed Estefany Sagastume [facility] 09/10/2019 11:29:54 Imaging Results None recorded. Procedure Notes None recorded. Medical Equipment None Reported. Allergies No known drug allergies Medications Name Sig Start Date Stop Date Status Note LastModified by Organization Details LastModified Time amoxicillin 500 mg capsule 04/21 completed Not Available Not Available Not Available atorvastatin 80 mg tablet active Not Available Not Available Not Available azithromycin 250 mg tablet 04/21 completed Not Available Not Available Not Available clopidogrel 75 mg tablet 03/15 completed Not Available Not Available Not Available carvedilol 3.125 mg tablet 03/15 completed Not Available Not Available Not Available bisoprolol fumarate 5 mg tablet 03/15 completed Not Available Not Available Not Available hydrocodone 7.5 mg-acetaminop hen 325 mg tablet 03/14 completed Not Available Not Available Not Available diltiazem CD 120 mg capsule,exten ded release 24 hr active Not Available Not Available Not Available cefuroxime axetil 500 mg tablet Take 1 tablet every 12 hours by oral route. 12/08 completed Not Available Not Available Not Available albuterol sulfate HFA 90 mcg/actuation aerosol inhaler 12/08 completed Not Available Not Available Not Available Aspir-81 12/08 completed Not Available Not Available Not Available One A Day Vitamin active Not Available Not Available Not Available peg 3350-electrol ytes 236 gram-22.74 gram-6.74 gram-5.86 gram solution 12/08 completed Not Available Not Available Not Available Eliquis 5 mg tablet active Not Available Not Available Not Available ProAir RespiClick 90 mcg/actuation breath activated INHALE 1 PUFF BY MOUTH EVERY 4 HOURS NEEDED active Not Available Not Available No t Available Bevespi Aerosphere 9 mcg-4.8 mcg HFA aerosol inhaler active Not Available Not Available Not Available Vitals Date Recorded Body height Body mass index (BMI) Body weight Provider Name and Address Organization Details Last Updated DateTime 06/09/2024 167.64 cm 16.9 kg/m2 41387.2 g [facility] 06/09/2024 13:16:47 Date Recorded Body height Body mass index (BMI) Body weight Provider Name and Address Organization Details Last Updated DateTime 12/08/2024 167.64 cm 17.8 kg/m2 81526.16 g Malathi North [facility] 12/08/2024 13:02:30 Date Recorded Body height Body mass index (BMI) Body weight Provider Name and Address Organization Details Last Updated DateTime 03/18/2022 167.64 cm 22.6 kg/m2 36529.93 g Herber Olson [facility] 03/18/2022 12:15:00 Date Recorded Body height Body mass index (BMI) Body weight Provider Name and Address Organization Details Last Updated DateTime 03/19/2023 167.64 cm 22.6 kg/m2 26527.93 g Cadence [facility] 03/19/2023 13:51:24 Date Recorded Body height Body mass index (BMI) Body weight Provider Name and Address Organization Details Last Updated DateTime 04/21/2024 167.64 cm 16.9 kg/m2 57939.2 g Malathi Kat [facility] 04/21/2024 15:14:54 Social History Question Answer Notes LastModified by Organizat ion Details LastModified Time Tobacco Smoking Status Former Smoker Estefany blank, [facility] 09/10/2019 11:29:30 How Much Tobacco Do You Chew? None Information not available 09/10/2019 Marital Status Informatio n not available 09/10/2019 What Was The Date Of Your Most Recent Tobacco Screening? 06/09/2024 [email or web address] Information not available 06/09/2024 How Much Tobacco Do You Smoke? No [email or web address] Information not available 03/15/2020 Sex: Unknown Functional Status Question Answer Note LastModified by Organizat ion Details LastModified Time What is your level of alcohol consumption? None Information not available 09/10/2019 Do you or have you ever used e-cigarettes or vape? Never used electronic cigarettes Information not available 09/10/2019 Mental Status None recorded. Family History Relationship Description Onset Age of this Age Resolved Age Notes LastModified by Organization Details LastModified Time Mother Family history of malignant neoplasm Not available 2019 11:29:21 Medical History Condition Response Stroke Y Chronic Obstructive Pulmonary Disease Y Immunizations Vaccine Type Date Status Note Provider Nam e and Address Organization Details Recorded Time pneumococcal, unspecified formulation 7 completed Not Available [facility] 12/08/2024 12:56:44 Influenza, MDCK, quadrivalent, PF 0 completed Not Available [facility] 12/08/2024 12:56:44 Pneumococcal conjugate PCV 13 0 completed Not Available [facility] 12/08/2024 12:56:44 COVID-19, mRNA, LNP-S, PF, 100 mcg/0.5mL dose or 50 mcg/0.25mL dose 1 completed Not Available [facility] 12/08/2024 12:56:44 COVID-19, mRNA, LNP-S, PF, 100 mcg/0.5mL dose or 50 mcg/0.25mL dose 1 completed Not Available [facility] 12/08/2024 12:56:44 COVID-19, mRNA, LNP-S, PF, 100 mcg/0.5mL dose or 50 mcg/0.25mL dose 1 completed Not Available [facility] 12/08/2024 12:56:44 COVID-19, mRNA, LNP-S, PF, 100 mcg/0.5mL dose or 50 mcg/0.25mL dose 2 completed Not Available [facility] 12/08/2024 12:56:44 COVID-19, mRNA, LNP-S, bivalent, PF, 50 mcg/0.5 mL or 25mcg/0.25 mL dose 2 completed Not Available [facility] 12/08/2024 12:56:44 RSV, bivalent, protein subunit RSVpreF, diluent reconstituted, 0.5 mL, PF 3 completed Not Available [facility] 12/08/2024 12:56:44 COVID-19, mRNA, LNP-S, PF, 50 mcg/0.5 mL 3 completed Not Available [facility] 12/08/2024 12:56:44 COVID-19, mRNA, LNP-S, PF, richelle-sucrose, 30 mcg/0.3 mL 4 completed Not Available [facility] 12/08/2024 12:56:44 Past Encounters Encounter ID Performer Location Encounter Start Date Encounter Closed Date Diagnosis/Indication Diagnosis SNOMED-CT Code Diagnosis ICD10 Code Diagnosis IMO Codes Diagnosis Note [id number] MD ARIEL ANGULO [facility] [address] [place] [address] 09/10/2019 10:41:19 09/10/2019 11:50:17 Complex renal cyst 5682041283 2027656 N28.1 he will follow up in [address] scan prior to that visit the CT scan will be performed at [facility] for consistenc y. [id number] MD ARIEL AN[facility]ULO [facility] [address] [place] [address] 03/15/2020 13:20:26 03/15/2020 14:13:34 Renal mass 999945781 N28.89 the lesion is stable in size. We will move him to yearly follow-up with scan at [facility] prior to his visit. This was seen to be a CT scan with contrast [id number] BECKY BUCK MD [facility] [address] [address] 03/14/2021 12:36:23 03/14/2021 16:33:36 Complex renal cyst 922653195 N28.1 follow up one year with renal u/s prior [id number] BECKY BUCK MD [facility] [address] [address] 03/18/2022 10:46:29 03/18/2022 12:37:15 Complex renal cyst 132285306 N28.1 follow up one year with renal u/s prior [id number] BECKY BUCK MD [facility] [address] [address] 03/19/2023 13:25:05 03/19/2023 15:08:20 Complex renal cyst 470315822 N28.1 follow up one year with CT scan renal mass protocol prior to visit. Benign pro static hyperplasia 868753363 N40.0 PSA is acceptable [id number] BECKY BUCK MD [facility] [address] [address] 04/21/2024 13:22:20 04/21/2024 16:08:30 Chronic prostatitis 65888594 N41.1 Continue during his exam and abrupt rise of PSA I think we should first treating for possible prostatiti s. He will follow-up in 1 month with repeat PSA. Acquired r enal cystic disease [id number] N28.1 We will anticipate repeat renal ultrasound in 1 year [id number] BECKY BUCK MD [facility] [address] [address] 06/09/2024 12:38:37 06/09/2024 13:44:01 Simple renal cyst 77166807 N28.1 Prostate s pecific antigen above reference range 150382898 R97.20 Follow-up 4 months with repeat PSA Chronic prostatitis 1990 5009 N41.1 As above [id number] BECKY BUCK MD [facility] [address] [place] [address] 12/08/2024 12:55:06 12/08/2024 13:59:24 Prostate specific antigen above reference range 056818073 R97.20 [id number] Follow-up 6 months with PSA Cyst of kidney 860184224 N28.1 [id number] As above Health Concerns Section Related Observation LastModified by Organization Detai ls LastModified Time None Recorded Concern Status LastModified by Organization Details LastModified Time None Recorded Advance Directives Directive None Recorded Payers Insurance Date Sequence Insurance Name Policy Number Policy Antony Covered Member ID Antony Member ID Guarantor Name 01/27/2025 2 [place] [id number] Hayes Mays [id number] Hayes Mays 12/08/2024 1 [place] Mays [id number] Hayes Mays Notes Date Note Type Note Provider Name and Address Organization Details Recorded Time 03/18/2022 text/html Patient is in follow-up last seen 1 year ago regarding a large complex renal cyst on the left. He had a repeat CT scan at [facility] on the eighth. He brought his disc. The cyst measures 7.2 x 6 cm and appears stable in size. There is an occasional peripheral calcification. He also had a tiny stone upper pole right kidney. Considering the stability of this suggests no further intervention. He has no flank pain. He will follow-up in one year with a renal ultrasound BECKY BUCK MD [address], [place], [address], [facility] 03/19/2022 18:18:13 03/19/2023 text/html Patient is here for follow-up nearly regarding complex renal cyst. He had a renal ultrasound at [facility] last week. Lesion appears to be relatively unchanged. He has a 9.6 cm. He had a CT scan last year and this is his first ultrasound visualization. This extends from the lower pole left kidney. His urine today is unremarkable. He typically has no significant obstructive symptoms. To his knowledge he has not had a recent PSA and we obtain 1. His PSA today is stable at 2.3. [place], [address], [facility] 03/19/2023 21:06:03 04/21/2024 text/html Patient is here in follow-up of very large left renal cyst. He had a follow-up renal ultrasound at [facility] on April 06. It looks as though it may have increased in size 1 cm lower pole left kidney now 10.7 cm. He has absolutely no flank pain. His urine specimen today is unremarkable. Additionally today's PSA was 12.3. Last year his PSA was 2.3. He has had no dysuria. He brought a computer disc of his renal ultrasound and I have reviewed it. MD [place], [address], [facility] 04/22/2024 23:06:37 06/09/2024 text/html Patient is here in follow-up of elevated and fluctuating PSA. PSA at last visit in April was 12.3. I placed him on cefuroxime and PSA today returned at 5.4. PSA last year was 2.3. He notes no significant change of urination on antibiotic therapy. We discussed that with the significant drop that he apparently does have some component of subclinical prostatitis. I suggest we follow-up up in 3 to 4 months with repeat PSA. He also has been followed for enlarged left renal cyst with repeat ultrasound in April showing stability[place], [address], [facility] 06/13/2024 17:20:50 12/08/2024 text/html Patient was last seen here in June. He had history of elevated and fluctuating PSA. April of last year his PSA was 12.3 and then down to 5.4 and follow-up here in June. PSA today was 3.0. He we have also followed a large benign-appearing renal cyst. He had a CT scan of the lungs for lung cancer screening last month. Left renal cyst was redemonstrated as well as a small stone in the right kidney nonobstructing. His urine specimen today is unremarkable. Will continue with observation of both. BECKY BUCK MD [address] [place] [address], [phone], [facility] 12/24/2024 07:33:03
--- OUTSIDE RECORDS SUMMARY | 2025-02-14 08:58 | XMS_ITS | Encounter Summary ---
Author Organization Healthcare Address [address] [place] [address] Care Team Providers Care Boiling House Oiler Name Role Phone Dinh Ritchie MD Primary Care Provider Encounter Details Date Type Department Care Team (Latest Contact Info) Description 01/20/2025 Travel Social History Tobacco Use Types Packs/Day [...] Description 02/15/2025 1:00 PM EDT Office Visit [facility] [address] [place] [address] 02/17/2025 1:00 PM EDT Office Visit [facility] [address] [place] [address] 02/22/2025 1:00 PM EDT Office Visit [facility] [address] [place] [address] 02/24/2025 1:00 PM EDT Office Visit [facility] [address] [place] [address] 03/01/2025 1:00 PM EDT Office Visit [facility] [address] [place] [address] 03/03/2025 1:00 PM EDT Office Visit [facility] [address] [place] [address] 08/11/2025 1:20 PM EDT Office Visit [facility] [place] [address] [place] [address] Allie Serna MD [address] [place] [address] documented as of this encounter Visit Diagnoses [...] documented as of this encounter Care Teams Boiling House Oiler Relationship Specialty Start Date End Date Dinh Ritchie MD [address] [place], [place] [id number] PCP - General 09/15/20 documented as of this encounter
--- OUTSIDE RECORDS SUMMARY | 2025-02-14 08:58 | XMS_ITS | Encounter Summary ---
Author Organization [employer] ([place], [place], [place], [place]) Address [address] [place] [address] Care Team Providers Care Sales Department Manager Name Role Phone Collette Rendon APRN Primary Care Provider [phone] Barry Bernal MD Unavailable [phone] Encounter Details Date Type Department Care Team (Late st Contact Info) Description 01/20/2020 Transcribed Document [facility] [address] [place] [address] ProviderDulce Maria MD [address] [place] [address] Social History Tobacco Use Types [...] - Dulce Maria Duncan MD - 01/20/2020 10:44 AM CDT Procedural Documentation [...] Anesthesiologist Procedure Case Attendee Role 2 : aircraft engine cylinder mechanic Case Attendee 2 : LORENA ORO RN [...] LORENA ORO RN - 01/20/2020 10:44 EDT Electronically signed by Victorina [facility] Conversion Automobile Inspector Cerner at 08/21/2022 12:02 PM CDT documented in this encounter Plan of Treatment Upcoming Encounters Date Type Department Care Team (Late st Contact Info) Description 05/11/2025 1:30 PM EST Office Visit [facility] [address] [place] [address] Mark Love MD [address] [place] [address] documented as of this encounter Visit Diagnoses Not on filedocumented in this encounter Care Teams Sales Department Manager Relationship Specialty Start Date End Date Collette Rendon APRN PCP - General Emergency Medicine 01/21/25 Barry Bernal MD [address] [place], [place] [address] Referring Physician Family Medicine 01/21/25 documented as of this encounter
--- OUTSIDE RECORDS SUMMARY | 2025-02-14 08:58 | XMS_ITS | Encounter Summary ---
Author Organization [employer] ([place], [place], [place], [place]) Address [address] [place] [address] Care Team Providers Care Weatherization Installer Name Role Phone Collette Rendon APRN Primary Care Provider [phone] Barry Bernal MD Unavailable [phone] Encounter Details Date Type Department Care Team (Late st Contact Info) Description 01/20/2020 Transcribed Document [facility] Family Medicine [address] [place] [address] ProviderDulce Maria MD [address] [place] [address] Social History Tobacco Use Types [...] Note - Dulce Maria ProviderMD - 01/20/2020 11:21 AM CDT [facility] Main OR IntraOp Summary Primary Physician: LISA WOOD MD-SUR Finalized Date/Time: 01/23/20 16:22:21 Pt. Name: HAYES MARTINEZ /Sex: 1950 Male Med Rec #: [id number] Physician: LISA WOOD MD-SUR Financial #: [id number] Pt. Type: I Room/Bed: [facility] Admit/Disch: 01/20/20 08:50:00 - 01/21/20 11:51:00 Institution: [facility] IntraOp Case Attendance Entry 1 Entry 2 Entry 3 Case Attendee LISA WOOD MD-ADDISON ASHER SWINFORD, ASHLEE, NA MD-ANS Role Performed Surgeon/Proceduralist, Anesthesiologist of DRIVABILITY TECHNICIAN/Nurse Feltmaker First Record Time In 01/20/20 10:53:00 01/20/20 [...] RN RESULTAY, JOSEFINA, RN Role Performed Student Equipment Services Associate, First Equipment Services Associate, Second Time In 01/20/20 10:53:00 01/20/20 10:53:00 [...] 8 Entry 9 Case Attendee ZEYNEP BETANCOURT OTHER, ATTENDEE #2 OTHER, ATTENDEE #3 Role Performed Scrub, First Vendor Campus Manager Time In 01/20/20 10:53:00 01/20/20 10:53:00 01/20/20 [...] Wound Closed By: Last Modified By: Delfina Cook, Delfina Baxter, Delfina Baxter RN 01/20/20 12:30:17 01/20/20 12:30:17 01/20/20 12:30:17 Entry 10 Entry 11 Case Attendee RACHEL WHITEHEAD, Reese FORBES Robin A, Surgical DRIVABILITY TECHNICIAN-ANS Information Security Engineer Role Performed DRIVABILITY TECHNICIAN/Nurse Feltmaker Scrub, First Time In 01/20/20 11:33:00 01/20/20 12:00:00 Time Out 01/20/20 12:03:00 01/20/20 12:30:00 Procedure Aortic Stent Placement Aortic Stent Placement Endovascular, Iliac Endovascular, Iliac Stent Placement Stent Placement Endovascular, Aortogram Endovascular, Aortogram Abdominal with Runoff Abdominal with Runoff Other Attendee BREAK Superficial Wound Closed By: Last Modified By: Delfina Coko RN Napier, Elizabeth A, RN 01/20/20 12:30:17 01/20/20 12:30:17 [facility] IntraOp Case Attendance Audit 01/20/20 12:30:30 Inspector Conveyor Line: EANAPIER Modifier: EANAPIER <+> 1 Procedure 2 <*> Procedure Aortic Stent Placement Endovascular, Iliac Stent Placement Endovascular, Aortogram Abdominal with Runoff 01/20/20 12:30:17 Inspector Conveyor Line: RESULTJO Modifier: EANAPIER <+> 1 Time Out [...] Endovascular, Aortogram Abdominal with Runoff 01/20/20 12:04:22 Inspector Conveyor Line: RESULTJO Modifier: RESULTJO <+> 10 Case Attendee <+> 10 Role Performed <+> 10 Time In <+> 10 Time Out <+> 10 Procedure <+> 11 Case Attendee <+> 11 Role Performed <+> 11 Time In <+> 11 Procedure <+> 11 Other Attendee 01/20/20 11:30:37 Inspector Conveyor Line: EANAPIER Modifier: RESULTJO <+> 1 Time In [...] Stent Placement Endovascular, Aortogram Abdominal with Runoff [facility] IntraOp Case Times Entry 1 Patient In Room Time 01/20/20 10:53:00 Out Room Time 01/20/20 12:30:00 Anesthesia Start Time 01/20/20 10:53:00 Stop Time 01/20/20 12:30:00 Surgery / Procedure Times Start Time 01/20/20 11:21:00 Stop Time 01/20/20 12:18:00 Last Modified By: Delfina Cook RN 01/20/20 12:28:35 [facility] IntraOp Case Times Audit 01/20/20 12:28:35 Inspector Conveyor Line: EANAPIER Modifier: EANAPIER <+> 1 Out Room Time <+> 1 Stop Time 01/20/20 12:18:28 Inspector Conveyor Line: RESULTJO Modifier: EANAPIER <+> 1 Stop Time [facility] IntraOp Cautery Entry 1 ESU Identification Cautery Type Monopolar ESU ID Number [id number] ID Type Hospital Number Cautery Settings Cut Setting 30 Coag Setting 30 ESU Grounding Pad Ground Pad Type Adult Grounding Pad Site Left buttock Grounding Pad Delfina Cook RN Applied By Grounding Pad Site Intact, Warm, Dry Skin Condition Before Cautery Grounding Pad Site Unchanged Skin Condition After Cautery Last Modified By: HÉCTOR GARCIA RN 01/20/20 12:05:01 [facility] IntraOp Cautery Audit 01/20/20 12:05:01 Inspector Conveyor Line: PARMJITPIER Modifier: RESULTJO 1 <*> Ground Pad Type Reusable electrode pad 1 <*> Grounding Pad Site Posterior 1 <+> ID Number [facility] IntraOp Communication Entry 1 Entry 2 Communication To Family/Significant other Other Comment START CTVU CLOSING Communication By HÉCTOR GARCIA RN Napier, Elizabeth A, RN Date and Time 01/20/20 11:21:00 01/20/20 12:19:00 Last Modified By: HÉCTOR GARCIA RN Napier, Elizabeth A, RN 01/20/20 11:30:54 01/20/20 12:18:43 [facility] IntraOp Communication Audit 01/20/20 12:18:43 Inspector Conveyor Line: RESULTJOANA Modifier: EFRAIN <+> 2 Communication By <+> 2 Date and Time <+> 2 Communication To <+> 2 Comment [facility] IntraOp Departure from OR Entry 1 Integumentary Assessment Integumentary WDL Assessment WDL Transfer/Handoff Transfer to Other Handoff Method Phone call Post-op Transport Stretcher/Gurney Via Patient Transport SOCORRO SANTIZO NA, Accompanied by ADDISON LUCAS MD-ANS, Delfina Cook RN Transfer/Handoff PT TRANSPORTED TO [facility], PT STABLE Last Modified By: Delfina Cook RN 01/20/20 10:34:19 [facility] IntraOp Dressing and Packing Entry 1 Type Dressing Location OPSITE Wound Dressing Item 4x4's, Skin Closure Glue Applied By LISA WOOD MD-SANIA Other Comments TEGADERM Last Modified By: Delfina Cook RN 01/20/20 10:32:14 [facility] IntraOp Fire Risk Assessment Entry 1 [...] Yes Safety Precautions Followed Last Modified By: HÉCTRO GARCIA RN 01/20/20 11:33:05 [facility] IntraOp Fire Risk Assessment Audit 01/20/20 11:33:05 Inspector Conveyor Line: EFRAIN Modifier: RESULTJO <+> 1 Fire Risk Assessment Verified Date/Time [facility] IntraOp General Case Commercial Or Institutional Cleaner 1 Case Information OR OR 01 [facility] Case Level 1 Room Verified Yes Wound Class I - Clean Specialty SN Endovascular Anesthesia Type MAC ASA Class 3 Diagnosis Preop Diagnosis AAA Postop Same As Preop No Postop Diagnosis SEE MD NOTE Last Modified By: Delfina Cook RN 01/20/20 10:34:39 [facility] IntraOp Implant Log Entry 1 Entry 2 Entry 3 Type Implant (Synthetic) Implant (Synthetic) Implant (Synthetic) Implant Log Implant Type Tissue Implant Type Implant CLOSURE SYS PERCLOSE STENT GRFT EXCLUDER GRANURAG EXCLUDER Identification [id number] [id number] Description Implant Quantity 4 1 1 Implant Site OPSITE MAIN BODY AORTA RIGHT COMMON ILIAC Implant Identification Model Number Implant [id number] Identification Serial Number Implant [id number] Identification Lot Number Implant Syed Lab:Vasc Dev [facility]l [place] [facility]:Med Prdt Wl [place] [facility]:Med Prdt Identification Conservation Engineer Name: Implant [id number] Identification Catalog Number Implant Size 31MM X 14.5MM X 15CM 16MM X 14.5 MM X 14CM Implant Has an Yes Yes Yes Expiration Date Implant Expiration 10/02/21 04/04/22 09/09/22 Date Wasted Radioactive Material Time Implanted Tissue Implant Continue for Tissue Implant Documentation Tissue Identification Number Graft Prep Per Conservation Engineer Instructions: Tissue Preparation Method: Reconstitution Solution: Reconstitution Solution Lot Number Reconstitution Solution Expiration Date: Thawing Solution Thawing Solution Lot Number Thawing Solution Expiration Date Preparation Materials, Other Preparation Materials, Other Lot Number Preparation Materials, Other Expiration Date Tissue Prepared/Processed By Conservation Engineer Paperwork Completed Implant Type Comment Last Modified By: HÉCTOR GARCIA, HÉCTOR KIRKPATRICK RN RESULTAY, JOSEFINA, RN 01/20/20 11:34:18 01/20/20 11:36:34 01/20/20 12:05:36 [facility] IntraOp Implant Log Audit 01/20/20 12:05:36 Inspector Conveyor Line: RESULTJO Modifier: RESULTJO 3 <*> Implant Identification Description ANURAG EXCLUDER [id number] <*> Implant Site RIGHT ILIAC 01/20/20 11:47:46 Inspector Conveyor Line: RESULTJO Modifier: RESULTJO <+> 3 Implant Identification Description <+> 3 Implant Identification Serial Number <+> 3 Implant Identification Conservation Engineer Name: <+> 3 Implant Size <+> 3 Implant Expiration Date <+> 3 Implant Site <+> 3 Implant Quantity <+> 3 Implant Identification Catalog Number <+> 3 Implant Has an Expiration Date <+> 3 Type 01/20/20 11:36:34 Inspector Conveyor Line: RESULTJO Modifier: RESULTJO <+> 2 Implant Identification Description <+> 2 Implant Identification Serial Number <+> 2 Implant Identification Conservation Engineer Name: <+> 2 Implant Size <+> 2 Implant Expiration Date <+> 2 Implant Site <+> 2 Implant Quantity <+> 2 Implant Identification Catalog Number <+> 2 Implant Has an Expiration Date <+> 2 Type [facility] IntraOp Intraoperative Assessment Entry 1 Handoff [...] Modified By: Delfina Cook RN 01/20/20 10:36:34 [facility] IntraOp Intraoperative Equipment Entry 1 Type Monitoring Equipment Intraop Monitoring Electrocardiogram Three lead placement (ECG) Electrode Placement Blood Pressure Non-Invasive BP Device Source Blood Pressure Arm, right upper Location Pulse Oximeter Hand, left Probe Site Antiembolic Devices Scopes Photo/Video Documentation Last Modified By: Delfina Cook RN 01/20/20 10:34:07 [facility] IntraOp Medication Admin Entry 1 Entry 2 Entry 3 Medication/Irrigant COLETTE VISIPAQUE 320MG 150 lidocaine 1% 50ml vial COLETTE NACL 0.9PCT HPRN 200ML --[id number] - [id number] 1000U .5L --[id number] Combo Med List Time Administered Route of CONTRAST LOCAL IRRIGATION/FLUSH Administration Dose Dose 470 51 4519 Unit of Measure ml ml units Volume Administered By LISA WOOD MD-SUR ABEDI, NICK NIMA, MD-SUR ABEDI, NICK NIMA, MD-SUR Procedure Irrigation Irrigant Volume In Irrigant Volume Out Last Modified By: HÉCTOR GARCIA RN Napier, Elizabeth A, RN Napier, Elizabeth A, RN 01/20/20 12:15:46 01/20/20 10:33:06 01/20/20 10:33:06 Entry 4 Medication/Irrigant HEMOSTAT SURGICEL SNOW [id number] Combo Med List Time Administered Route of TOPICAL Administration Dose Dose 1000 Unit of Measure units Volume Administered By LISA WOOD MD-SUR Procedure Irrigation Irrigant Volume In Irrigant Volume Out Last Modified By: HÉCTOR GARCIA RN 01/20/20 10:50:26 [facility] IntraOp Medication Admin Audit 01/20/20 12:15:46 Inspector Conveyor Line: RESULTJO Modifier: RESULTJO <+> 1 Dose 01/20/20 10:50:26 Inspector Conveyor Line: EFRAIN Modifier: RESULTJO <+> 4 Medication/Irrigant <+> 4 Route of Administration <+> 4 Administered By <+> 4 Dose <+> 4 Unit of Measure [facility] IntraOp Patient Positioning Entry 1 Procedure [...] Position UNP'S Positioned By Delfina Cook RN, NINALISA RIVAS MD-SUR, HÉCTOR GARCIA RN, SOCORRO SANTIZO, SUZANNA Position Verified Positioning Yes Verified by Anesthesia Positioning Yes Verified by Surgeon Last Modified By: Delfina Cook RN 01/20/20 10:33:39 [facility] IntraOp Sign In Entry 1 Patient, [...] Modified By: Delfina Cook RN 01/20/20 10:33:50 [facility] IntraOp Sign Out Entry 1 RN [...] Modified By: Delfina Cook RN 01/20/20 12:28:46 [facility] IntraOp Sign Out Audit 01/20/20 12:28:46 Inspector Conveyor Line: EFRAIN Modifier: EANAPIER <+> 1 RN Sign Out Signature Date/Time [facility] IntraOp Skin Prep Entry 1 Procedure Aortic Stent Placement Endovascular, Iliac Stent Placement Endovascular, Aortogram Abdominal with Runoff Prescribed N/A Pre-Surgical Prep Completed Prep Area NIPPLE LINE TO KNEES Intraop Prep Integumentary WDL Assessment WDL Prep Agents Chloraprep Prep by Delfina Cook RN Hair Removal Methods No hair removal performed Last Modified By: Delfina Cook RN 01/20/20 10:35:12 [facility] IntraOp Surgical Procedures Entry 1 Entry 2 Entry 3 Procedure Aortic Stent Placement Iliac Stent Placement Aortogram Abdominal Endovascular Endovascular with Runoff Modifiers Additional (EVAR, LT RENAL ARTERY Procedure STENT, RT ILIAC ARTERY Description STENT) AORTIC ANEURYSM REPAIR WITH CUTDOW. Primary Procedure Yes No No Primary Surgeon LISA WOOD MD-SUR ABEDI, NICK NIMA, MD-SUR ABEDI, NICK NIMA, MD-SANIA Start 01/20/20 11:21:00 01/20/20 11:21:00 01/20/20 11:21:00 Stop 01/20/20 12:18:00 01/20/20 12:18:00 01/20/20 12:18:00 Physician States Cecum Reached Anesthesia Type MAC MAC MAC Specialty SN Endovascular SN Endovascular SN Endovascular Wound Class I - Clean I - Clean I - Clean Last Modified By: Delfina Cook RN Napier, Elizabeth A, RN Napier, Elizabeth A, RN 01/20/20 12:30:15 01/20/20 12:28:49 01/20/20 12:28:49 [facility] IntraOp Surgical Procedures Audit 01/20/20 12:30:15 Inspector Conveyor Line: PARMJITPIER Modifier: EANAPIER 1 <*> Procedure Aortic Stent Placement Endovascular 1 <*> Specialty 1 <*> Additional Procedure Description (EVAR, LT RENAL ARTERY STENT, RT ILIAC ARTERY STENT) 01/20/20 12:28:49 Inspector Conveyor Line: EANAPIER Modifier: EANAPIER <+> 1 Start <+> 1 Stop <+> 2 Start <+> 2 Stop <+> 3 Start <+> 3 Stop 01/20/20 10:42:24 Inspector Conveyor Line: EANAPIER Modifier: EANAPIER 2 <*> Procedure Iliac Stent Placement Endovascular 2 <*> Specialty 3 <*> Procedure Aortogram Abdominal with Runoff 3 <*> Specialty [facility] IntraOp Temp Regulation Devices Entry 1 Temp Regulation Temperature Forced Air Warming Regulation Device device Temperature Upper body Regulation Site Temperature Device 43 C Setting Temperature SOCORRO SANTIZO NA Regulation Device Applied by Last Modified By: Delfina Cook RN 01/20/20 10:35:29 [facility] IntraOP Time Out Entry 1 Procedure [...] Modified By: HÉCTOR GARCIA RN 01/20/20 11:29:41 [facility] IntraOp X-Ray and Images Entry 1 [...] Unfinalizing Freetext Reason for Unfinalizing 01/20/20 16:05 NOLANM Modify Pick List 01/23/20 16:19 JOSE Correct Billing Electronically signed by Victorina [facility] Conversion Nailhead Operator Cerner at 08/21/2022 11:51 AM CDT documented in this encounter Plan of Treatment Upcoming Encounters Date Type Department Care Team (Late st Contact Info) Description 05/11/2025 1:30 PM EST Office Visit [facility] Pulmonology - [address] [place] [address] Mark Love MD [address] [place], [place] [id number] documented as of this encounter Visit Diagnoses Not on filedocumented in this encounter Care Teams Weatherization Installer Relationship Specialty Start Date End Date Collette Rendon APRN PCP - General Emergency Medicine 01/21/25 Barry Bernal MD [address] [place] [address] Referring Physician Family Medicine 01/21/25 documented as of this encounter
--- OUTSIDE RECORDS SUMMARY | 2025-02-14 08:58 | XMS_ITS | Encounter Summary ---
Author Organization Healthcare Address [address] [place] [address] Care Team Providers Care Fruit Harvest Machine Operator Name Role Phone Dinh Ritchie MD Primary Care Provider [phone] Encounter Details Date Type Department Care Team (Latest Contact Info) Description 01/13/2025 Travel Social History Tobacco Use Types Packs/Day [...] Description 02/15/2025 1:00 PM EDT Office Visit [facility] [address] [place] [address] 02/17/2025 1:00 PM EDT Office Visit [facility] [address] [place] [address] 02/22/2025 1:00 PM EDT Office Visit [facility] [address] [place] [address] 02/24/2025 1:00 PM EDT Office Visit [facility] [address] [place] [address] 03/01/2025 1:00 PM EDT Office Visit [facility] [address] [place] [address] 03/03/2025 1:00 PM EDT Office Visit [facility] [address] [place] [address] 08/11/2025 1:20 PM EDT Office Visit [facility] [place] [address] [place] [address] Allie Serna MD [address] [place] [address] documented as of this encounter Visit Diagnoses [...] documented as of this encounter Care Teams Fruit Harvest Machine Operator Relationship Specialty Start Date End Date Dinh Ritchie MD [address] [place] [address] PCP - General 09/15/20 documented as of this encounter
--- OUTSIDE RECORDS SUMMARY | 2025-02-14 08:58 | XMS_ITS | Encounter Summary ---
Author Organization [employer] ([place], [place], [place], [place]) Address [address] [place] [address] Care Team Providers Care Oil Field Laborer Name Role Phone Collette Rendon APRN Primary Care Provider [phone] Barry Bernal MD Unavailable [phone] Encounter Details Date Type Department Care Team (Late st Contact Info) Description 01/20/2020 Transcribed Document [facility] [place] [address] [place] [address] ProviderDulce Maria MD [address] [place] [address] Social History Tobacco Use Types [...] Maria ProviderMD - 01/20/2020 11:21 AM CDT [facility] Main OR Preop Summary Primary Physician: LISA WOOD MD-SUR Finalized Date/Time: 01/20/20 16:07:48 Pt. Name: HAYES MAYS /Sex: 1950 Male Med Rec #: [id number] Physician: LISA WOOD MD-SUR Financial #: [id number] Pt. Type: I Room/Bed: CV21/1 Admit/Disch: 01/20/20 08:50:00 - Institution: [facility] PreOp Case Times Entry 1 In Preop 01/20/20 09:22:00 Ready for Holding n/a Room Patient Ready for 01/20/20 10:45:00 Surgery Patient Out of Preop 01/20/20 10:50:00 Patient Out of n/a Holding Room Last Modified By: LORENA ORO RN 01/20/20 16:07:44 [facility] PreOp Case Times Audit 01/20/20 16:07:44 Swedger: ROBEL Modifier: MCGRANM <+> 1 Patient Out of Preop Finalized By: LORENA ORO, RN Document Signatures Signed By: LORENA ORO RN 01/20/20 16:07 Electronically signed by Victorina [facility] Conversion Form Presser Cerner at 08/21/2022 11:53 AM CDT documented in this encounter Plan of Treatment Upcoming Encounters Date Type Department Care Team (Late st Contact Info) Description 05/11/2025 1:30 PM EST Office Visit [facility] Pulmonology - [address] [place] [phone] Mark Love MD [address] [place] [address] documented as of this encounter Visit Diagnoses Not on filedocumented in this encounter Care Teams Oil Field Laborer Relationship Specialty Start Date End Date Carolyngeraldobeverley ColletteLEIDY newman PCP - General Emergency Medicine 01/21/25 Barry Bernal MD [address] [place] [address] Referring Physician Family Medicine 01/21/25 documented as of this encounter
--- OUTSIDE RECORDS SUMMARY | 2025-02-14 08:58 | XMS_ITS | Encounter Summary ---
Author Organization [employer] ([place], [place], [place], [place]) Address [address] [place] [address] Care Team Providers Care Fire Investigation Manager Name Role Phone Collette Rendon APRN Primary Care Provider [phone] Barry Bernal MD Unavailable [phone] Encounter Details Date Type Department Care Team (Late st Contact Info) Description 01/20/2020 Transcribed Document [facility] Family Medicine [address] [place] [address] ProviderDulce Maria MD [address], [place] [id number] Social History Tobacco Use Types Packs/Day Years [...] - Dulce Maria Duncan MD - 01/20/2020 8:46 AM CDT Admission History, [...] Person/Pt Rep Contact Information : Dalton Reeves [phone] Want Family/Rep/Phys Notified of Admit : No Emergency Contact #1 : Dalton Reeves Emergency Contact #1 Emergency Contact #1 Relationship : Emergency Contact #2 : none Emergency Contact #2 Phone Number : none Emergency Contact #2 Relationship : none Chief Complaint : AAA found on CT scan for lung to monitor nodule Primary Language : Samoan Communication Barrier : Other: difficulty w/ word finding post CVA Histology Assistant Needed : No JAVY WILLIAMSON RN - 01/20/2020 17:38 EDT Fall Risk Scales ABCs Fall Injury Risk Identification : Age, Coagulation, Surgery ABC Fall Injury Risk : Moderate to high injury risk JARQUIN Hx Falls Immediate/Within 3 Months : No Jarquin Secondary Diagnosis : Yes JARQUIN Use of Ambulatory Aid : Bed rest/Nurse assist JARQUIN IV Therapy or IV Access : Yes Britton Gait/Transferring : Normal, bedrest, immobile Jarquin Mental Status : Oriented to own ability Jarquin Fall Risk Score : 35 JARQUIN Fall Scale Risk Level : 25-45 Medium Risk Holland Fall Interventions : Adequate lighting, Assistive devices [...] Smokeless Tobacco Status : Never Implant/Device Type, Fiber Optic Splicer and Model : loop cardiac recorder; cardiac [...] Source : Measured Height Entry Format : Mcmillan Height, Feet : 5 ft(Converted to: 152 cm, 60 Inch) Height, Inches : 6 Inch(Converted to: 0 ft 6 Inch, 15.24 cm) Clinical Height : 167.64 cm Weight Source : Standing scale Weight Entry Format : Mcmillan Clinical Dosing Weight : 62.68 kg Weight, Pounds : 137.9 lb Body Surface Area (BSA) : 1.71 m2 Body Mass Index : 22.3 kg/m2 Battiest Body Weight : 63 kg JAVY WILLIAMSON [...] JAVY WILLIAMSON RN - 01/20/2020 17:38 EDT [place] Suicide Severity Rating Scale (C-SSRS) CSSRS Past [...] JAVY WILLIAMSON RN - 01/20/2020 17:38 EDT Electronically signed by Elisa Prajapati Conversion Sorting And Folding Supervisor Cerner at 08/21/2022 12:00 PM CDT documented in this encounter Plan of Treatment Upcoming Encounters Date Type Department Care Team (Late st Contact Info) Description 05/11/2025 1:30 PM EST Office Visit [facility] Pulmonology - [address] [place] [address] Mark Love MD [address] [place] [address] documented as of this encounter Visit Diagnoses Not on filedocumented in this encounter Care Teams Fire Investigation Manager Relationship Specialty Start Date End Date Collette Rendon APRN PCP - General Emergency Medicine 01/21/25 Barry Bernal MD [address] [place] [address] Referring Physician Family Medicine 01/21/25 documented as of this encounter
--- OUTSIDE RECORDS SUMMARY | 2025-02-14 08:58 | XMS_ITS | Encounter Summary ---
Author Organization [employer] ([place], [place], [place], [place]) Address [address] [place] [address] Care Team Providers Care Fiberglass Pipe Covering Supervisor Name Role Phone Collette Rendon APRN Primary Care Provider [phone] Barry Bernal MD Unavailable [phone] Encounter Details Date Type Department Care Team (Late st Contact Info) Description 01/20/2020 Transcribed Document [facility] Family Medicine [address] [place] [address] ProviderDulce Maria MD [address] [place] [address] Social History Tobacco Use Types [...] JAVY WILLIAMSON RN - 01/20/2020 15:59 EDT documented in this encounter Plan of Treatment Upcoming Encounters Date Type Department Care Team (Late st Contact Info) Description 05/11/2025 1:30 PM EST Office Visit [facility] Pulmonology - [address] [place] [address] Mark Love MD [address] [place] [address] documented as of this encounter Visit Diagnoses Not on filedocumented in this encounter Care Teams Fiberglass Pipe Covering Supervisor Relationship Specialty Start Date End Date CarolyngeraldoKane loweryColletteLEIDY newman PCP - General Emergency Medicine 01/21/25 Barry Bernal MD [address] [place] [address] Referring Physician Family Medicine 01/21/25 documented as of this encounter
--- OUTSIDE RECORDS SUMMARY | 2025-02-14 08:58 | XMS_ITS | Encounter Summary ---
Author Organization Healthcare Address [address] [place] [address] Care Team Providers Care Correctional Officer Captain Name Role Phone Dinh Ritchie MD Primary Care Provider [phone] Encounter Details Date Type Department Care Team (Latest Contact Info) Description 01/18/2025 Travel Social History Tobacco Use Types Packs/Day [...] Description 02/15/2025 1:00 PM EDT [facility] [address] [place] [address] 02/17/2025 1:00 PM EDT [facility] [address] [place] [address] 02/22/2025 1:00 PM EDT [facility] [address] [place] [address] 02/24/2025 1:00 PM EDT [facility] [address] [place] [address] 03/01/2025 1:00 PM EDT Office Visit [facility] [address] [place] [address] 03/03/2025 1:00 PM EDT Office Visit [facility] [address] [place] [address] 08/11/2025 1:20 PM EDT Office Visit [facility] [place] [address] [place] [address] Allie Serna MD [address] [place] [address] documented as of this encounter Visit Diagnoses [...] documented as of this encounter Care Teams Correctional Officer Captain Relationship Specialty Start Date End Date Dinh Ritchie MD [address] [place], [place] [id number] PCP - General 09/15/20 documented as of this encounter
--- OUTSIDE RECORDS SUMMARY | 2025-02-14 08:59 | XMS_ITS | Encounter Summary ---
Author Organization Healthcare Address [address] [place] [address] Care Team Providers Care Enamel Burner Name Role Phone Dinh Ritchie MD Primary Care Provider [phone] Encounter Details Date Type Department Care Team (Latest Contact Info) Description 01/11/2025 Travel Social History Tobacco Use Types Packs/Day [...] Description 02/15/2025 1:00 PM EDT [facility] [address] [place] [address] 02/17/2025 1:00 PM EDT [facility] [address] [place] [address] 02/22/2025 1:00 PM EDT [facility] [address] [place] [address] 02/24/2025 1:00 PM EDT [facility] [address] [place] [address] 03/01/2025 1:00 PM EDT Office Visit [facility] [address] [place] [address] 03/03/2025 1:00 PM EDT Office Visit [facility] [address] [place] [address] 08/11/2025 1:20 PM EDT Office Visit [facility] [place] [address] [place] [address] Allie Serna MD [address] [place] [address] documented as of this encounter Visit Diagnoses [...] documented as of this encounter Care Teams Enamel Burner Relationship Specialty Start Date End Date Dinh Ritchie MD [address] [place] [address] PCP - General 09/15/20 documented as of this encounter
--- OUTSIDE RECORDS SUMMARY | 2025-02-14 08:59 | XMS_ITS | Encounter Summary ---
Author Organization [employer] ([place], [place], [place], [place]) Address [address] [place] [address] Care Team Providers Care Regional Facilities Manager Name Role Phone Collette Rendon APRN Primary Care Provider [phone] Barry Bernal MD Unavailable [phone] Encounter Details Date Type Department Care Team (Late st Contact Info) Description 01/21/2020 Transcribed Document [facility] [place] Family Medicine [address] [place] [address] ProviderDulce Maria MD [address] [place], [place] [id number] Social History Tobacco Use Types Packs/Day Years Used Date Smoking Tobacco: Never Assessed Sex and Gender Information Value Date Recorded Sex Assigned at Male 10/30/2021 8:44 PM CDT Legal Sex Male 8:44 PM CDT Gender Identity Male 10/30/2021 8:44 PM CDT Sexual Orientation Not on file documented as of this encounter Miscellaneous Notes * Cerner Conversion Note - Dulce Maria ProviderMD - 01/21/2020 10:06 AM CDT Therapy [...] Therapy Screen Comment : Pt ambulated with [facility] staff independently in room, is discharging home today, and just tested positive for COVID-19. RN reports no OT concerns at this time. JOSE RAMIREZ, OTR/L - 01/21/2020 13:21 EDT documented in this encounter Plan of Treatment Upcoming Encounters Date Type Department Care Team (Late st Contact Info) Description 05/11/2025 1:30 PM EST Office Visit [facility] Pulmonology - [address] [place] [address] Mark Love MD [address] [place] [address] documented as of this encounter Visit Diagnoses Not on filedocumented in this encounter Care Teams Regional Facilities Manager Relationship Specialty Start Date End Date Collette Rendon APRN PCP - General Emergency Medicine 01/21/25 Barry Bernal MD [address] [place] [address] Referring Physician Family Medicine 01/21/25 documented as of this encounter
--- OUTSIDE RECORDS SUMMARY | 2025-02-14 08:59 | XMS_ITS | Encounter Summary ---
Author Organization [employer] ([place], [place], [place], [place]) Address [address] [place] [address] Care Team Providers Care Teacher Visually Impaired Name Role Phone Collette Rendon APRN Primary Care Provider [phone] Barry Bernal MD Unavailable [phone] Encounter Details Date Type Department Care Team (Late st Contact Info) Description 01/21/2020 Transcribed Document [facility] [place] [address] [place] [address] ProviderDulce Maria MD [address] [place], [place] [id number] Social History Tobacco Use Types Packs/Day Years Used Date Smoking Tobacco: Never Assessed Sex and Gender Information Value Date Recorded Sex Assigned at Male 10/30/2021 8:44 PM CDT Legal Sex Male 8:44 PM CDT Gender Identity Male 10/30/2021 8:44 PM CDT Sexual Orientation Not on file documented as of this encounter Miscellaneous Notes * Cerner Conversion Note - Dulce Maria Duncan MD - 01/21/2020 12:23 PM CDT CARLOS CRAVEN, [address] [place] [address] Re: HAYES MAYS Date of Visit: 01/20/2020 [...] is strictly prohibited. Sincerely, MILO BEAVERS [address] [place] [address] The following document(s) were included in the letter: January 21, 2020 12:09:34 EDT - (01/21/2020) Discharge Summary- S[place]man documented in this encounter Plan of Treatment Upcoming Encounters Date Type Department Care Team (Late st Contact Info) Description 05/11/2025 1:30 PM EST Office Visit [facility] Pulmonology - [address] [place] [address] Mark Love MD [address] [place] [address] documented as of this encounter Visit Diagnoses Not on filedocumented in this encounter Care Teams Teacher Visually Impaired Relationship Specialty Start Date End Date Collette Rendon APRN PCP - General Emergency Medicine 01/21/25 Barry Bernal MD [address] [place] [address] Referring Physician Family Medicine 01/21/25 documented as of this encounter
--- OUTSIDE RECORDS SUMMARY | 2025-02-14 08:59 | XMS_ITS | Encounter Summary ---
Author Organization [employer] ([place], [place], [place], [place]) Address [address] [place] [address] Care Team Providers Care Campaign Manager Name Role Phone Collette Rendon APRN Primary Care Provider [phone] Barry Bernal MD Unavailable [phone] Encounter Details Date Type Department Care Team (Late st Contact Info) Description 01/21/2020 Transcribed Document [facility] [place] [address] [place] [address] ProviderDulce Maria MD [address] [place], [place] [address] Social History Tobacco Use Types Packs/Day Years Used Date Smoking Tobacco: Never Assessed Sex and Gender Information Value Date Recorded Sex Assigned at Male 10/30/2021 8:44 PM CDT Legal Sex Male 8:44 PM CDT Gender Identity Male 10/30/2021 8:44 PM CDT Sexual Orientation Not on file documented as of this encounter Miscellaneous Notes * Cerner Conversion Note - Dulce Maria ProviderMD - 01/21/2020 9:47 AM CDT Initial Discharge Planning Entered On: 01/21/2020 9:49 EDT Performed On: 01/21/2020 9:47 EDT by LORENA PICKERING, [place]-Carton Making Machine Operator Initial Assessment I Previously Documented Living [...] Listed? : Yes Medical Durable Power of Pv Installer Tech Name : Dalton Dash (no copy on file) Legal Guardian : No Is Guardianship Needed : No LORENA PICKERING Rn-Carton Making Machine Operator - 01/21/2020 9:47 EDT Initial Assessment II Sensory and Motor Deficits : None Current Home Treatments and Equipment : None LORENA PICKERING Rn-Carton Making Machine Operator - 01/21/2020 9:47 EDT Discharge Needs I Anticipated Discharge Date : 01/21/2020 EDT Anticipated Discharge To, CM : Home with family care Current Home Treatment/Equipment : Current Home Treatment/Equipment No qualifying data available. Documentation Status Complete : Yes LORENA PICKERING Rn-Carton Making Machine Operator - 01/21/2020 9:47 EDT Discharge Needs II Professional Skilled Services : Professional Skilled Services No qualifying data available. Needs Assistance with Transportation : No Discharge Options Discussed with Patient : Discharge transportation, DME LORENA PICKERING Rn-Carton Making Machine Operator - 01/21/2020 9:47 EDT Narrative Note [...] - no copy in chart). LORENA PICKERING Rn-Carton Making Machine Operator - 01/21/2020 9:47 EDT documented in this encounter Plan of Treatment Upcoming Encounters Date Type Department Care Team (Late st Contact Info) Description 05/11/2025 1:30 PM EST Office Visit [facility] Pulmonology - [address] [place] [address] Mark Love MD [address] [place] [address] documented as of this encounter Visit Diagnoses Not on filedocumented in this encounter Care Teams Campaign Manager Relationship Specialty Start Date End Date Collette Rendon APRN PCP - General Emergency Medicine 01/21/25 Barry Bernal MD [address] [place] [address] Referring Physician Family Medicine 01/21/25 documented as of this encounter
--- OUTSIDE RECORDS SUMMARY | 2025-02-14 08:59 | XMS_ITS | Encounter Summary ---
Author Organization [employer] ([place], [place], [place], [place]) Address [address] [place] [address] Care Team Providers Care Machine Shop Inspector Name Role Phone Collette Rendon APRN Primary Care Provider [phone] Barry Bernal MD Unavailable [phone] Encounter Details Date Type Department Care Team (Late st Contact Info) Description 01/21/2020 Transcribed Document [facility] [place] [address] [place] [address] ProviderDulce Maria MD [address], [place] [id number] Social History Tobacco Use Types Packs/Day Years [...] - Dulce Maria Duncan MD - 01/21/2020 9:49 AM CDT Final Discharge Planning Entered On: 01/21/2020 9:50 EDT Performed On: 01/21/2020 9:49 EDT by LORENA PICKERING, [place]-Human Resources Clerk Final Discharge Planning Discharge Arrangements : Patient [...] : No Discharge To Care Management : Home/Residential/Senior Living or Self Care - LORENA PICKERING, Rn-Human Resources Clerk - 01/21/2020 9:49 EDT Final Narrative Note Final Narrative Note : Pt d/c home in care of spouse; no d/c needs identifed; f/u with PCP/specialists as recommended, LRRLORENA POLLARD Rn-Human Resources Clerk - 01/21/2020 9:49 EDT Electronically signed by [facility] Conversion Machine Helper Cerner at 08/21/2022 11:55 AM CDT documented in this encounter Plan of Treatment Upcoming Encounters Date Type Department Care Team (Late st Contact Info) Description 05/11/2025 1:30 PM EST Office Visit [facility] Pulmonology - [address] [place] [address] Mark Love MD [address] [place] [address] documented as of this encounter Visit Diagnoses Not on filedocumented in this encounter Care Teams Machine Shop Inspector Relationship Specialty Start Date End Date Collette Rendon APRN PCP - General Emergency Medicine 01/21/25 Barry Bernal MD [address] [place] [address] Referring Physician Family Medicine 01/21/25 documented as of this encounter
--- OUTSIDE RECORDS SUMMARY | 2025-02-14 08:59 | XMS_ITS | Encounter Summary ---
Author Organization Healthcare Address [address] [place] [address] Care Team Providers Care Drain Tiler Name Role Phone Dinh Ritchie MD Primary Care Provider [phone] Reason for Referral * Consultation (Routine) - Closed Specialty Diagnoses / Procedures Referred By Contac t Referred To Contact Pulmonology Diagnoses Chronic obstructive pulmonary disease, unspecified COPD type (CMS/HCC) Mark Love MD [address] [place] [address] Phone: tel: fax: [facility] [address] [place] [address] Phone: tel: fax: Referral ID Status Reason Start Date Expiration Date Visits Re quested Visits Authorized [id number] Closed 12/17/2024 06/18/2026 1 1 Encounter Details Date Type Department Care Team (Late st Contact Info) Description 12/17/2024 Community [facility] [address] [place] [address] Mark Love MD [address] [place] [address] Chronic obstructive pulmonary disease, unspecified COPD type [...] Description 02/15/2025 1:00 PM EDT Office Visit [facility] [address] [place] [address] 02/17/2025 1:00 PM EDT Office Visit [facility] [address] [place] [address] 02/22/2025 1:00 PM EDT Office Visit [facility] [address] [place] [address] 02/24/2025 1:00 PM EDT Office Visit [facility] [address] [place] [address] 03/01/2025 1:00 PM EDT Office Visit [facility] [address] [place] [address] 03/03/2025 1:00 PM EDT Office Visit [facility] [address] [place] [address] 08/11/2025 1:20 PM EDT Office Visit [facility] [place] [address] [facility] [address] [place] [address] Allie Serna MD [address] [place] [address] Scheduled Referrals Name Type Priority Associated Diagnoses Orde r Schedule Ambulatory referral to Pulmonary Rehab Outpatient Referral Routine Chronic obstructive pulmonary disease, unspecified COPD type (CMS/HCC) Expected: 12/17/2024 (Approximate), Expires: 06/20/2026 documented as of this encounter Visit Diagnoses [...] documented as of this encounter Care Teams Drain Tiler Relationship Specialty Start Date End Date Dinh Ritchie MD [address] [place] [address] PCP - General 09/15/20 documented as of this encounter
--- OUTSIDE RECORDS SUMMARY | 2025-02-14 08:59 | XMS_ITS | Encounter Summary ---
Author Organization [employer] ([place], [place], [place], [place]) Address [address] [place] [address] Care Team Providers Care Director Of Sustainability Name Role Phone Collette Rendon APRN Primary Care Provider [phone] Barry Bernal MD Unavailable [phone] Encounter Details Date Type Department Care Team (Late st Contact Info) Description 01/21/2020 Transcribed Document [facility] [address] [place] [address] ProviderDulce Maria MD [address], [place] [id number] Social History Tobacco Use Types Packs/Day Years Used Date Smoking Tobacco: Never Assessed Sex and Gender Information Value Date Recorded Sex Assigned at Male 10/30/2021 8:44 PM CDT Legal Sex Male 8:44 PM CDT Gender Identity Male 10/30/2021 8:44 PM CDT Sexual Orientation Not on file documented as of this encounter Miscellaneous Notes * Cerner Conversion Note - Dulce Maria ProviderMD - 01/21/2020 10:18 AM CDT Therapy Screen, PT Entered On: 01/21/2020 12:00 EDT Performed On: 01/21/2020 10:18 EDT by TOM POWER PT Therapy Screen, PT Medical Chart Reviewed : Yes Person Providing Information : Nurse Screen Completed : Yes Recommendation for Evaluation, PT : None Recommendations Upon Discharge : None Additional Therapy Screen Comment : PT/OT evals requested. Pt already up in the room with no assist and going home later this morning. Josy ARROYO, agrees that PT/OT evals not needed due to pt being physically ind. TOM POWER, PT - 01/21/2020 11:59 EDT documented in this encounter Plan of Treatment Upcoming Encounters Date Type Department Care Team (Late st Contact Info) Description 05/11/2025 1:30 PM EST Office Visit [facility] Pulmonology - [address] [place] [address] Mark Love MD [address] [place], [place] [id number] documented as of this encounter Visit Diagnoses Not on filedocumented in this encounter Care Teams Director Of Sustainability Relationship Specialty Start Date End Date Collette RendonLEIDY PCP - General Emergency Medicine 01/21/25 Barry Bernal MD [address] [place] [address] Referring Physician Family Medicine 01/21/25 documented as of this encounter
--- OUTSIDE RECORDS SUMMARY | 2025-02-14 08:59 | XMS_ITS | Encounter Summary ---
Author Organization Healthcare Address [address] [place] [address] Care Team Providers Care Black Leather Trimmer Name Role Phone Dinh Ritchie MD Primary Care Provider [phone] Encounter Details Date Type Department Care Team (Late st Contact Info) Description 12/23/2024 Orders Only [facility] [address] [place] [address] Kee Givens MD [address] [place] [address] Stage 4 very severe COPD by GOLD [...] Description 02/15/2025 1:00 PM EDT Office Visit [facility] [address] [place] [address] 02/17/2025 1:00 PM EDT Office Visit [facility] [address] [place] [address] 02/22/2025 1:00 PM EDT Office Visit [facility] [address] [place] [address] 02/24/2025 1:00 PM EDT Office Visit [facility] [address] [place] [address] 03/01/2025 1:00 PM EDT Office Visit [facility] [address] [place] [address] 03/03/2025 1:00 PM EDT Office Visit [facility] [address] [place] [address] 08/11/2025 1:20 PM EDT Office Visit [facility] [place] [address] [place] [address] Allie Serna MD [address] [place] [address] documented as of this encounter Visit Diagnoses Diagnosis Stage 4 very severe COPD by GOLD classification (CMS/HCC)- Primary Physical deconditioning Muscular wasting and disuse [...] documented as of this encounter Care Teams Black Leather Trimmer Relationship Specialty Start Date End Date Dinh Ritchie MD [address] [place] [address] PCP - General 09/15/20 documented as of this encounter
--- OUTSIDE RECORDS SUMMARY | 2025-02-14 08:59 | XMS_ITS | Encounter Summary ---
Author Organization [employer] ([place], [place], [place], [place]) Address [address] [place] [address] Care Team Providers Care Forming Roll Operator Name Role Phone Collette Rendon APRN Primary Care Provider [phone] Barry Bernal MD Unavailable [phone] Encounter Details Date Type Department Care Team (Late st Contact Info) Description 02/25/2020 Transcribed Document [facility] [address] [place] [address] Lisa Wood MD [address] [facility] [place] [address] Social History Tobacco Use Types Packs/Day Years Used Date Smoking Tobacco: Never Assessed Sex and Gender Information Value Date Recorded Sex Assigned at Male 10/30/2021 8:44 PM CDT Legal Sex Male 8:44 PM CDT Gender Identity Male 10/30/2021 8:44 PM CDT Sexual Orientation Not on file documented as of this encounter Miscellaneous Notes * Cerner Conversion Note - Lisa Wood MD - 02/25/2020 2:56 PM EDT Patient: HAYES MAYS Age: 69 Years Sex: Male : 1950 Admit Date 02/24/2020 06:34 Discharge Date 02/25/2020 Attending Physician: Dr. Lisa Wood Discharge Diagnosis Left external iliac pseudoaneurysm and [...] admitted under the services of Dr. Lisa Wood. 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 [facility], he [...] in 2 weeks Rx on chart for [place] 7.5mg Light activity without heavy lifting [id number] Regular diet as tolerated Discharge Follow Up CARLOS CRAVEN MD-FAM - Within 5 to 7 days LISA WOOD - Within 2 weeks Discharge Medications (5) Active aspirin 81 mg oral tablet 1 Tab, Oral, Daily atorvastatin 80 mg oral tablet 80 mg = 1 Tab, Oral, At Bedtime Bevespi Aerosphere 9 mcg-4.8 mcg/inh inhalation aerosol 2 Puff, Inhalation, BID [place] 7.5 mg-325 mg oral tablet 1 Tab, [...] Description 05/11/2025 1:30 PM EST Office Visit [facility] Pulmonology - [address] [place] [address] Mark Love MD [address] [place] [address] documented as of this encounter Visit Diagnoses Not on filedocumented in this encounter Care Teams Forming Roll Operator Relationship Specialty Start Date End Date Collette Rendon APRN PCP - General Emergency Medicine 01/21/25 Barry Bernal MD [address] [place] [address] Referring Physician Family Medicine 01/21/25 documented as of this encounter
--- OUTSIDE RECORDS SUMMARY | 2025-02-14 08:59 | XMS_ITS | Encounter Summary ---
Author Organization [employer] ([place], [place], [place], [place]) Address [address] [place] [address] Care Team Providers Care Drug Safety Scientist Name Role Phone Collette Rendon APRN Primary Care Provider [phone] Barry Bernal MD Unavailable [phone] Encounter Details Date Type Department Care Team (Late st Contact Info) Description 01/21/2020 Transcribed Document [facility] [place] [address] [place] [address] ProviderDulce Maria MD [address], [place] [id number] Social History Tobacco Use Types Packs/Day Years [...] - Dulce Maria Duncan MD - 01/21/2020 11:04 AM CDT Nursing Discharge [...] JAVY WILLIAMSON RN - 01/21/2020 11:04 EDT Electronically signed by Victorina [facility] Conversion Engraving Plate Maker Cerner at 08/21/2022 12:18 PM CDT documented in this encounter Plan of Treatment Upcoming Encounters Date Type Department Care Team (Late st Contact Info) Description 05/11/2025 1:30 PM EST Office Visit [facility] Pulmonology - [address] [place] [address] Mark Love MD [address] [place], [place] [id number] documented as of this encounter Visit Diagnoses Not on filedocumented in this encounter Care Teams Drug Safety Scientist Relationship Specialty Start Date End Date CarolyngeraldoNery loweryLEIDY lopez PCP - General Emergency Medicine 01/21/25 Barry Bernal MD [facility] [address] Referring Physician Family Medicine 01/21/25 documented as of this encounter
--- OUTSIDE RECORDS SUMMARY | 2025-02-14 08:59 | XMS_ITS | Encounter Summary ---
Author Organization [employer] ([place], [place], [place], [place]) Address [address] [place] [address] Care Team Providers Care [employer]oid Middle [employer] Teacher Name Role Phone Collette Rendon APRN Primary Care Provider [phone]- [phone] Barry Bernal MD Unavailable [phone] Encounter Details Date Type Department Care Team (Late st Contact Info) Description 02/23/2020 Transcribed Document [facility] [place] Family Medicine [address] [place] [address] ProviderDulce Maria MD [address], [place] [id number] Social History Tobacco Use Types Packs/Day Years Used Date Smoking Tobacco: Never Assessed Sex and Gender Information Value Date Recorded Sex Assigned at Male 10/30/2021 8:44 PM CDT Legal Sex Male 8:44 PM CDT Gender Identity Male 10/30/2021 8:44 PM CDT Sexual Orientation Not on file documented as of this encounter Miscellaneous Notes * Cerner Conversion Note - Dulce Maria ProviderMD - 02/23/2020 12:20 PM CDT PAT [...] Source : Measured Height Entry Format : [place] Height, Feet : 5 ft(Converted to: 152 cm, 60 Inch) Height, Inches : 6 Inch(Converted to: 0 ft 6 Inch, 15.24 cm) Clinical Height : 167.64 cm Weight Source : Standing scale Weight Entry Format : [place] Clinical Dosing Weight : 60.91 kg Weight, Pounds : 134 lb Weight, Ounces : 0 oz Body Surface Area (BSA) : 1.69 m2 Body Mass Index : 21.7 kg/m2 [place] Body Weight : 63 kg FARRAH ALMARAZ RN - 02/23/2020 12:20 EDT Health Histories Smoking Status : Former smoker, quit more than 30 days ago Smokeless Tobacco Status : Never Implant/Device Type, Pharmacy Buyer and Model : loop cardiac recorder; cardiac [...] Where was the COVID-19 Testing completed? : [facility] Date of COVID-19 test known? : Yes [...] FARRAH ALMARAZ RN - 02/23/2020 12:20 EDT [place] Suicide Severity Rating Scale (C-SSRS) CSSRS Past [...] Spouse Legal Guardian : No Support Person/Patient Clinical Cytogeneticist : Yes Support Person/Pt Rep Name : Dalton Reeves - Support Person/Pt Rep Contact Information : [phone] w Want Family/Rep/Phys Notified of Admit : No Emergency Contact #1 : Dalton Reeves Emergency Contact #1 Emergency Contact #1 Relationship : Emergency Contact #2 : na Emergency Contact #2 Phone Number : na Emergency Contact #2 Relationship : na Information Obtained From : Patient Primary Language : Cook Islander Communication Barrier : Other: difficulty w/ word finding post CVA Vehicle Upholsterer Needed : No Objects to Sharing Info [...] Apnea Risk Level Score : 2 FARRAH ALMARAZ RN - 02/23/2020 12:20 EDT Electronically signed by [facility] Conversion Diesel Locomotive Firer/Fireman Cerner at 08/21/2022 12:05 PM CDT documented in this encounter Plan of Treatment Upcoming Encounters Date Type Department Care Team (Late st Contact Info) Description 05/11/2025 1:30 PM EST Office Visit [facility] Pulmonology - [address] [place] [address] Mark Love MD [address] [place] [address] documented as of this encounter Visit Diagnoses Not on filedocumented in this encounter Care Teams [employer] Teacher Relationship Specialty Start Date End Date Collette Rendon APRN PCP - General Emergency Medicine 01/21/25 Barry Bernal MD [address] [facility] [place] [address] Referring Physician Family Medicine 01/21/25 documented as of this encounter
--- OUTSIDE RECORDS SUMMARY | 2025-02-14 08:59 | XMS_ITS | Encounter Summary ---
Author Organization [employer] ([place], [place], [place], [place]) Address [address] [place] [address] Care Team Providers Care Cap Inspector Name Role Phone Collette Rendon APRN Primary Care Provider [phone]- [phone] Barry Bernal MD Unavailable [phone] Encounter Details Date Type Department Care Team (Late st Contact Info) Description 02/25/2020 Transcribed Document [facility] Family Medicine [address] [place] [address] ProviderDulce Maria MD [address] [place], [place] [id number] Social History Tobacco Use Types Packs/Day Years [...] 05/11/2025 1:30 PM EST Office Visit [facility] Pulmonology - [address] [place] [address] Mark Love MD [address] [place] [address] documented as of this encounter Visit Diagnoses Not on filedocumented in this encounter Care Teams Cap Inspector Relationship Specialty Start Date End Date Collette RendonLEIDY PCP - General Emergency Medicine 01/21/25 Barry Bernal MD [address] [place] [address] Referring Physician Family Medicine 01/21/25 documented as of this encounter
--- OUTSIDE RECORDS SUMMARY | 2025-02-14 08:59 | XMS_ITS | Encounter Summary ---
Author Organization [employer] ([place], [place], [place], [place]) Address [address] [place] [address] Care Team Providers Care English Composition Instructor Name Role Phone Collette Rendon APRN Primary Care Provider [phone] Barry Bernal MD Unavailable [phone] Encounter Details Date Type Department Care Team (Late st Contact Info) Description 02/25/2020 Transcribed Document [facility] [place] [address] [place] [address] ProviderDulce Maria MD [address] [place] [address] Social History Tobacco Use Types [...] - Dulce Maria Duncan MD - 02/25/2020 1:56 PM CDT [facility] [address] HAYES MAYS :1950 Visit Time:02/24/2020 Your Visit Summary Your Care Team Admitting Physician - LISA WOOD MD-SUR Attending Physician - LISA WOOD MD-SANIA Primary Care Physician - CARLOS CRAVEN MD-[facility] Referring Physician - LISA WOOD MD-SANIA Your Diagnosis Abdominal aortic aneurysm, without rupture, [...] Follow-Up Appointments Follow Up with CARLOS CRAVEN MD-[facility] When Within 5 to 7 days Where: [address] [place] [address]- Follow Up with LISA WOOD When Within 2 weeks Comments postop f/u with RICARDO Where: [address] [facility] [address] [place] [address]- Business (1) Medications What How Much When Instructions Next Dose acetaminophen-hydrocodone ([place] 7.5 mg-325 mg oral tablet) 1 Tablet(s) [...] Fats and oils Meat fat, or shortening. [place] butter, hydrogenated oils, palm oil, coconut oil, [...] 10/20/2012 Document Revised: 06/25/2018 Document Reviewed: 05/29/2018 [employer] Patient Education ?? 2020 [employer] Femoral Endarterectomy, Care After This sheet [...] and water are not available, use hand extension forester. ? Change your dressing as told by [...] medicines you take. General instructions ??? Take wtzb-akg-jbfleie and prescription medicines only as told by [...] fried or sweet foods. ? Take an dtlo-las-lqyjvob or prescription medicine for constipation. ??? Wear [...] 07/16/2010 Document Revised: 02/11/2019 Document Reviewed: 03/05/2018 [employer] Patient Education ?? 2020 [employer]. Femoral Endarterectomy Femoral endarterectomy is surgery to [...] including vitamins, herbs, eye drops, creams, and oohz-usi-jpzxxdg medicines. ??? Any problems you or family [...] tells you to take them. ? Taking pcnt-xtp-ttzkzad medicines, vitamins, herbs, and supplements. Staying hydrated [...] Reviewed: 03/05/2018 Elsevier Patient Education ?? 2020 Elsevier Inc. Femoral Site Care This sheet gives [...] and water are not available, use hand extension forester. ? Change your dressing as told by [...] you relax (sedative). General instructions ??? Take cohc-owl-swzlomz and prescription medicines only as told by [...] 12/23/2014 Document Revised: 05/04/2018 Document Reviewed: 05/04/2018 ElseSmile Patient Education ?? 2020 [employer] 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 Take ralt-avn-ksdejrz and prescription medicines only as told by [...] on its own without treatment. ??? Take cofg-aiw-djhorie and prescription medicines only as told by [...] 10/07/2008 Document Revised: 01/27/2019 Document Reviewed: 01/27/2019 [employer]ile Patient Education ?? 2020 [employer]. Emergency Awareness and Preventative Care STROKE is [...] Assistance with quitting is available by contacting 3-562-EDUJ-NOW. This is a free resource providing counseling, [...] range between ( 0.0 and 7.0 ) Martin #: 0.61 K/uL -- Normal range between ( 0.16 and 1.00 ) Eos #: 0.17 x10(3)/uL -- Normal range between ( 0.00 and 0.80 ) Martin %: 9.3 % -- Normal range between [...] was given the opportunity to ask questions. Patient/Environmental Engineering Aide Name: Patient/Environmental Engineering Aide Signature: Relationship to Patient: Clinician/Hospital Environmental Engineering Aide Signature: Date: documented in this encounter Plan of Treatment Upcoming Encounters Date Type Department Care Team (Late st Contact Info) Description 05/11/2025 1:30 PM EST Office Visit [facility] Pulmonology - [address] [place] [id number] Mark Love MD [address] [place] [address] documented as of this encounter Visit Diagnoses Not on filedocumented in this encounter Care Teams English Composition Instructor Relationship Specialty Start Date End Date Collette Rendon APRN PCP - General Emergency Medicine 01/21/25 Barry Bernal MD [address] [place] [address] Referring Physician Family Medicine 01/21/25 documented as of this encounter
--- OUTSIDE RECORDS SUMMARY | 2025-02-14 08:59 | XMS_ITS | Encounter Summary ---
Author Organization [employer] ([place], [place], [place], [place]) Address [address] [place] [address] Care Team Providers Care Electrical Assistant Name Role Phone Collette Rendon APRN Primary Care Provider [phone] Barry Brenal MD Unavailable [phone] Encounter Details Date Type Department Care Team (Late st Contact Info) Description 02/25/2020 Transcribed Document [facility] [place] Family Medicine [address] [place] [address] ProviderDulce Maria MD [address] [place] [address] Social History Tobacco Use Types [...] Note - Dulce Maria ProviderMD - 02/25/2020 5:00 AM CDT Chart Check - Review Order Profile Entered On: 02/25/2020 5:30 EDT Performed On: 02/25/2020 5:00 EDT by NUPUR HERNANDEZ, RN Chart Check Powerplans Initiated/Discontinued as Appropriate : Yes NUPUR HERNANDEZ, RN - 02/25/2020 5:30 EDT documented in this encounter Plan of Treatment Upcoming Encounters Date Type Department Care Team (Late st Contact Info) Description 05/11/2025 1:30 PM EST Office Visit [facility] Pulmonology - [address] [place] [address] Mark Love MD [address] [place] [address] documented as of this encounter Visit Diagnoses Not on filedocumented in this encounter Care Teams Electrical Assistant Relationship Specialty Start Date End Date Collette Rendon, WIRE MILL OPERATOR PCP - General Emergency Medicine 01/21/25 Barry Bernal MD [facility] [place] [address] Referring Physician Family Medicine 01/21/25 documented as of this encounter
--- OUTSIDE RECORDS SUMMARY | 2025-02-14 08:59 | XMS_ITS | Encounter Summary ---
Author Organization [employer] ([place], [place], [place], [place]) Address [address] [place] [address] Care Team Providers Care Freelance Photographer Name Role Phone Collette Rendon APRN Primary Care Provider [phone] Barry Bernal MD Unavailable [phone] Encounter Details Date Type Department Care Team (Late st Contact Info) Description 02/25/2020 Transcribed Document [facility] Family Medicine [address] [place] [address] ProviderDulce Maria MD [address] [place], [place] [id number] Social History Tobacco Use Types Packs/Day Years [...] Maria ProviderMD - 02/25/2020 1:53 PM CDT Stroke/Warfarin [...] Description 05/11/2025 1:30 PM EST Office Visit [facility] Pulmonology - [address] [place] [address] Mark Love MD [address] [place] [address] documented as of this encounter Visit Diagnoses Not on filedocumented in this encounter Care Teams Freelance Photographer Relationship Specialty Start Date End Date Collette Rendon, CONVENIENCE STORE MANAGER PCP - General Emergency Medicine 01/21/25 Barry Bernal MD [facility] [place] [address] Referring Physician Family Medicine 01/21/25 documented as of this encounter
--- OUTSIDE RECORDS SUMMARY | 2025-02-14 08:59 | XMS_ITS | Clinical Summary ---
Author Organization [facility] Address [address] [place] [address] Care Team Providers Care Shank Breaker Name Role Phone Dinh Ritchie MD Primary Care Provider [phone] Allergies Active Allergy Reactions Criticality Noted Date [...] Active Problems Problem Noted Date Diagnosed Date Stage 4 very severe COPD by GOLD classification 01/05/2025 Assessment & Plan (01/05/2025 12:58 PM EDT): Orders: PT eval and treat Physical deconditioning 01/05/2025 Assessment & Plan (01/05/2025 12:58 PM EDT): Orders: PT eval and treat Status post placement of implantable loop record er 03/14/2021 S/P patent foramen ovale closure 12/02/2019 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 PFO (patent foramen ovale) 01/26/2019 Encounters Date Type Department Care Team Description 02/09/2025 3:23 PM EDT - 02/09/2025 11:59 PM EDT Hospital Encounter Cardiac Imaging [address] [place] [address] History of loop recorder Discharge Disposition: Home or Self Care 02/09/2025 Travel 02/03/2025 1:00 PM EDT Office Visit [facility] Rehab [address] [place] [address] Chronic obstructive pulmonary disease, unspecified COPD type (CMS/HCC) (Primary Dx) 02/03/2025 Travel 02/01/2025 1:00 PM EDT Office Visit [facility] [address] [place] [address] Chronic obstructive pulmonary disease, unspecified COPD type (CMS/HCC) (Primary Dx) 02/01/2025 Travel 01/20/2025 1:00 PM EDT Office Visit [facility] [address] [place] [address] Chronic obstructive pulmonary disease, unspecified COPD type (CMS/HCC) (Primary Dx) 01/20/2025 Travel 01/18/2025 1:00 PM EDT Office Visit [facility] [address] [place] [address] Chronic obstructive pulmonary disease, unspecified COPD type (CMS/HCC) (Primary Dx) 01/18/2025 Travel 01/13/2025 1:00 PM EDT Office Visit [facility] [address] [place] [address] Chronic obstructive pulmonary disease, unspecified COPD type (CMS/HCC) (Primary Dx) 01/13/2025 Travel 01/11/2025 1:00 PM EDT Office Visit [facility] [address] [place] [address] Chronic obstructive pulmonary disease, unspecified COPD type (CMS/HCC) (Primary Dx) 01/11/2025 Travel 01/10/2025 3:35 PM EDT - 01/10/2025 11:59 PM EDT Hospital Encounter Cardiac Imaging [address] [place] [address] History of loop recorder Discharge Disposition: Home or Self Care 01/10/2025 Travel 01/06/2025 1:00 PM EDT Office Visit [facility] [address] [place] [address] Chronic obstructive pulmonary disease, unspecified COPD type (CMS/HCC) (Primary Dx) 01/06/2025 Travel 01/05/2025 11:00 AM EDT Office Visit [facility] [address] [place] [address] Jared Kumar Stage 4 very severe COPD by GOLD classification (CMS/HCC) (Primary Dx); Physical deconditioning 01/05/2025 Plan of Care Documentation [facility] [address] [place] [address] 01/05/2025 Travel 12/23/2024 Orders Only [facility] [address] [place] [address] Kee Givens MD Stage 4 very severe COPD by GOLD classification (CMS/HCC) (Primary Dx); Physical deconditioning 12/17/2024 [facility] [address] [place] [address] Mark Love MD Chronic obstructive pulmonary disease, unspecified COPD type (CMS/HCC) (Primary Dx) 12/13/2024 4:30 PM EDT - 12/13/2024 11:59 PM EDT Hospital Encounter Cardiac Imaging [address] [place] [address] Encounter for loop recorder check Discharge Disposition: Home or Self Care 12/13/2024 Travel from Last 3 Months Immunizations Immunization [...] Pulse 93 01/05/2025 12:00 PM EDT Temperature 36.4 C (97.6 F) 11/12/2022 1:34 PM EDT Respiratory Rate 20 11/12/2022 1:45 PM EDT Oxygen Saturation 95% 01/05/2025 12:00 PM EDT Inhaled Oxygen Concentration - - Weight 49.9 kg (110 lb 0.2 oz) 02/01/2025 2:00 P M EDT Height 167.6 cm (5' 6 ) 01/06/2025 2:00 PM EDT Body Mass Index 17.76 01/06/2025 2:00 PM EDT Plan of Treatment Upcoming Encounters Date Type Department Care Team (Late st Contact Info) Description 02/15/2025 1:00 PM EDT Office Visit [facility] [address] [place] [address] 02/17/2025 1:00 PM EDT Office Visit [facility] [address] [place] [address] 02/22/2025 1:00 PM EDT Office Visit [facility] [address] [place] [address] 02/24/2025 1:00 PM EDT Office Visit [facility] [address] [place] [address] 03/01/2025 1:00 PM EDT Office Visit [facility] [address] [place] [address] 03/03/2025 1:00 PM EDT Office Visit [facility] [address] [place] [address] 08/11/2025 1:20 PM EDT Office Visit [facility] [place] [address] [place] [address] Allie Serna MD [address] [place] [address] Health Maintenance Due Date Last Done Comments [facility]-Medicare Annual Wellness (AWV) 1950 [facility]-Infant/Child/Adol SDOH Screenings 1950 [facility]- SDOH Screenings 12/24/1969 [facility]-Adult SDOH Screenings 12/24/1969 [facility]-DTaP,Tdap,and Td Vaccines (1 - Tdap) 12/24/1970 CT Colonography 12/24/1996 Colonoscopy 12/24/1996 FIT-DNA 12/24/1996 FIT 12/24/1996 FOBT 12/24/1996 Sigmoidoscopy 12/24/1996 [facility]-Colorectal Cancer Screening 12/24/1996 [facility]-Zoster Vaccines (1 of 2) 12/24/2001 [facility]-Abdominal Aortic Aneurysm (AAA) Screening 12/24/2016 [facility]-Pneumococcal Vaccine: 50+ Years (2 of 2 - PCV20 or PCV21) 01/20/2021 01/21/2020, 08/29/2016, 08/29/2016 [id number] Vaccine ( season) 2025 03/17/2024, 02/19/2023, 01/22/2022, Additional history exists [facility]-Influenza [...] this topic Medical Devices Implanted Type Area Electrolytic De Scaler Device Identifier Shelf Expiration Date Model / Serial / Lot [id number] Reveal Linq [id number] Implanted:04/11 (Quantity not on file) Pacemaker Medtronic LNQ11 REVEAL LINQ / [id number] / System Reveal Linq Ii Insertable Charge Coordinator - [id number] Implanted:Qty: 1 on 11/12/2022 by Allie Serna MD at [facility] [id number] 02/10/2024 [id number] / [id number] / [id number] Procedures Procedure Name Priority Date/Time Associated Diagnosis Comments CARDIAC DEVICE CHECK - REMOTE - LOOP RECORDER (ILR) Routine 02/09/2025 5:22 PM EDT History of loop recorder CARDIAC DEVICE CHECK - REMOTE - LOOP RECORDER (ILR) Routine 01/10/2025 4:20 PM EDT History of loop recorder CARDIAC DEVICE CHECK - REMOTE - LOOP RECORDER (ILR) Routine 12/13/2024 5:21 PM EDT Encounter for loop recorder check HEPATITIS C ANTIBODY - ED W/REFLEX TO HCV QUANT PCR Routine 01/14/2019 5:21 AM EDT from Last 3 Months or Most Recently Relevant to Health Maintenance Results * CARDIAC DEVICE CHECK - REMOTE - LOOP RECORDER (ILR) (02/09/2025 5:22 PM EDT) Only the most recent of3 resultswithin the time period is included. Anatomical Region Laterality Modality Other Narrative 02/10/2025 11:20 AM EDT [facility] - Device [facility] Remote CIED Report Name: Hayes Mays Date: 02/10/2025 : 1950 Age: 74 y.o. Reporting period: Reporting period is the last 31 days, with at least 10 days of remote monitoring. Interim reports, if any, reviewed and addressed previously; see remote alert entries for more details. Device: Medtronic [id number] implantable phototypesetting equipment monitor (ICM) Battery: Status: Good Evaluation: Presenting rhythm: sinus with 1:1 intrinsic conduction to the ventricle. Trends Rate Histograms : demonstrate good rate distribution. Demonstrates appropriate sensing: Yes Arrhythmias: One new PSVT event, 36 seconds in duration. On Eliquis. Summary CIED functioning as expected, with given programming and data. us Key Ramirez APRN CV IMPLANTABLE CARDIAC DEV ICE PROCEDURES Final Result * [place] Hepatitis C Antibody (01/14/2019 5:21 AM EDT) [place] Hepatitis C Ab NEGATIVE Reference Range: Negative SUNQUEST 01/14/2019 5:21 AM EDT 01/14/2019 5:26 AM EDT us Bernardino Triplett MD LAB BLOOD ORDERABLES Final Re sult SUNQUEST from Last 3 Months or Most Recently Relevant to Health Maintenance Insurance MEDICARE ANTHEM Advance Directives * Full Code (Latest Code Status on File) Date Activated Date Inactivated Comments 11/12/2022 1:21 PM 11/13/2022 4:01 AM Question Answer Comments Patient has decision-making capacity? Yes Care Teams Shank Breaker Relationship Specialty Start Date End Date Dinh Ritchie MD [address] [place] [address] PCP - General 09/15/20
--- OUTSIDE RECORDS SUMMARY | 2025-02-14 08:59 | XMS_ITS | Encounter Summary ---
Author Organization [employer] ([place], [place], [place], [place]) Address [address] [place] [address] Care Team Providers Care Specialty Food Products Supervisor Name Role Phone Collette Rendon APRN Primary Care Provider [phone] Barry Bernal MD Unavailable [phone] Encounter Details Date Type Department Care Team (Late st Contact Info) Description 02/25/2020 Transcribed Document [facility] [place] Family Medicine [address] [place] [address] ProviderDulce Maria MD [address] [place], [place] [id number] Social History Tobacco Use Types Packs/Day Years [...] - Dulce Maria Duncan MD - 02/25/2020 10:45 AM CDT Final Discharge Planning Entered On: 02/25/2020 10:48 EDT Performed On: 02/25/2020 10:45 EDT by LORENA PICKERING Rn-Construction Or Leak Gang Laborer Final Discharge Planning Discharge Arrangements : Patient [...] : Yes Discharge To Care Management : Home/Residential/Shelter or Self Care -01 Physician Notified of Patient Discharge Comment : Pt discharging home in care of spouse; f/u appt planned; 02 Sat >88% LORENA PICKERING, Rn-Construction Or Leak Gang Laborer - 02/25/2020 10:45 EDT Electronically signed by [facility] Conversion Tailor Fitter Cerner at 08/21/2022 11:51 AM CDT documented in this encounter Plan of Treatment Upcoming Encounters Date Type Department Care Team (Late st Contact Info) Description 05/11/2025 1:30 PM EST Office Visit [facility] Pulmonology - [address] [place] [address] Mark Love MD [address] [place] [address] documented as of this encounter Visit Diagnoses Not on filedocumented in this encounter Care Teams Specialty Food Products Supervisor Relationship Specialty Start Date End Date Collette Rendon, LEIDY PCP - General Emergency Medicine 01/21/25 Barry Bernal MD [address] [place] [address] Referring Physician Family Medicine 01/21/25 documented as of this encounter
--- OUTSIDE RECORDS SUMMARY | 2025-02-14 08:59 | XMS_ITS | Encounter Summary ---
Author Organization Healthcare Address [address] [place] [address] Care Team Providers Care Naval Special Warfare Medic Name Role Phone Dinh Ritchie MD Primary Care Provider [phone] Encounter Details Date Type Department Care Team (Latest Contact Info) Description 01/06/2025 Travel Social History Tobacco Use Types Packs/Day [...] [facility] [address] [place] [address] 02/17/2025 1:00 PM EDT Office Visit [facility] [address] [place] [address] 02/22/2025 1:00 PM EDT Office [facility] [address] [place] [address] 02/24/2025 1:00 PM EDT Office [facility] [address] [place] [address] 03/01/2025 1:00 PM EDT Office Visit [facility] [address] [place] [address] 03/03/2025 1:00 PM EDT Office Visit [facility] [address] [place] [address] 08/11/2025 1:20 PM EDT Office Visit [facility] [place] [address] [place] [address] Allie Serna MD [address] [place] [address] documented as of this encounter Visit Diagnoses [...] documented as of this encounter Care Teams Naval Special Warfare Medic Relationship Specialty Start Date End Date Dinh Ritchie MD [address] [place], [place] [id number] PCP - General 09/15/20 documented as of this encounter
--- OUTSIDE RECORDS SUMMARY | 2025-02-14 08:59 | XMS_ITS | Encounter Summary ---
Author Organization [employer] ([place], [place], [place], [place]) Address [address] [place] [address] Care Team Providers Care Marine Electrician Name Role Phone Collette Rendon APRN Primary Care Provider [phone] Barry Bernal MD Unavailable [phone] Encounter Details Date Type Department Care Team (Late st Contact Info) Description 02/25/2020 Transcribed Document [facility] Family Medicine [address] [place] [address] ProviderDulce Maria MD [address], [place] [address] Social History Tobacco Use Types Packs/Day Years Used Date Smoking Tobacco: Never Assessed Sex and Gender Information Value Date Recorded Sex Assigned at Male 10/30/2021 8:44 PM CDT Legal Sex Male 8:44 PM CDT Gender Identity Male 10/30/2021 8:44 PM CDT Sexual Orientation Not on file documented as of this encounter Miscellaneous Notes * Cerner Conversion Note - Dulce Maria ProviderMD - 02/25/2020 10:38 AM CDT Initial Discharge Planning Entered On: 02/25/2020 10:41 EDT Performed On: 02/25/2020 10:38 EDT by LORENA PICKERING Rn-Elder Counselor Initial Assessment I Previously Documented Living Environment [...] Listed? : Yes Medical Durable Power of J2Ee Programmer Name : Dalton Dash (no copy on file) Legal Guardian : No Is Guardianship Needed : No LORENA PICKERING Rn-Elder Counselor - 02/25/2020 10:38 EDT Initial Assessment II Sensory and Motor Deficits : None Current Home Treatments and Equipment : None LORENA PICKERING Rn-Elder Counselor - 02/25/2020 10:38 EDT Discharge Needs I Anticipated Discharge Date : 02/25/2020 EDT Anticipated Discharge To, CM : Home with family care Current Home Treatment/Equipment : Current Home Treatment/Equipment No qualifying data available. Post Acute/Home Treatments : None Documentation Status Complete : Yes LORENA PICKERING Rn-Elder Counselor - 02/25/2020 10:38 EDT Discharge Needs II Professional Skilled Services : Professional Skilled Services No qualifying data available. 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 Pt lives with spouse; PLOF independent, no hx of home health or short-term rehab. LORENA PICKERING Rn-Elder Counselor - 02/25/2020 10:38 EDT documented in this encounter Plan of Treatment Upcoming Encounters Date Type Department Care Team (Late st Contact Info) Description 05/11/2025 1:30 PM EST Office Visit [facility] Pulmonology - [address] [place] [address] Mark Love MD [address] [place] [address] documented as of this encounter Visit Diagnoses Not on filedocumented in this encounter Care Teams Marine Electrician Relationship Specialty Start Date End Date Collette Rendon APRN PCP - General Emergency Medicine 01/21/25 Barry Bernal MD [address] [place], [place] [address] Referring Physician Family Medicine 01/21/25 documented as of this encounter
--- OUTSIDE RECORDS SUMMARY | 2025-02-14 08:59 | XMS_ITS | Referral Summary ---
Author Organization [employer] ([place], [place], [place], [place]) Address [address] [place] [address] Care Team Providers Care Rn Surgical Pcu Name Role Phone Bethbeverley Collette LEIDY Primary Care Provider [phone] Barry Bernal MD Unavailable [phone] Encounters Date Type Department Care Team Description 01/21/2025 Travel 01/21/2025 4:01 PM EDT - 01/21/2025 7:40 PM EDT Emergency [facility] Emergency Department [address] [place] [address] Donald Garcia DO Left nephrolithiasis (Primary Dx) Discharge Disposition: Home or Self Care 12/16/2024 Telephone [facility] [address] [place] [address] Jerel Mcknight Medication Management 12/09/2024 11:28 AM EDT - 12/09/2024 11:59 PM EDT Hospital Encounter [facility] Pul[facility] Lab [address] [place] [address] Mark Love MD Panlobular emphysema (HCC) Discharge Disposition: Home or Self Care 11/25/2024 Travel 11/25/2024 1:15 PM EDT [facility] [address] [place] [address] Mark Love MD Panlobular emphysema (HCC) (Primary Dx); 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 05/26/19 Active atorvastatin (LIPITOR) 80 MG tablet Take 1 tablet (80 mg total) by mouth daily. 11/05/19 Active dilTIAZem (CARDIZEM CD) 120 MG 24 hr capsule Take by mouth. 09/17/19 Active Bevespi Aerosphere 9-4.8 mcg HFAA SMARTSIG:Via Inhaler 09/17/19 Active polyethylene glycol (GoLYTELY) 236-22.74-6.74 -5.86 gram solution Active albuterol sulfate (ProAir RespiClick) 90 mcg/actuation aepb Inhale 1 puff by mouth every 4 (four) hours as needed. Active miscellaneous medical supply miscIndications:P anlobular emphysema (HCC) Order for Pulmonary Rehab. 1 each 11/26/19 25 Active HYDROcodone-aceta minophen (NORCO) 5-325 mg per tablet Take 1 tablet by mouth every 6 (six) hours as needed for pain for up to 12 doses. Max Daily Amount: 4 tablets 12 tablet 01/22/20 25 Active ondansetron (ZOFRAN-ODT) 4 MG disintegrating tablet Take 1 tablet (4 mg total) by mouth every 8 (eight) hours as needed for nausea or vomiting for up to 5 days. 15 tablet 01/22/20 25 025 Discontinued tamsulosin (FLOMAX) 0.4 mg cap 24 hr capsule Take 1 capsule (0.4 mg total) by mouth daily for 7 days Or until stone passes. 7 capsule 01/22/20 25 025 Discontinued HYDROcodone-aceta minophen (NORCO) 5-325 mg per tablet Take 1 tablet by mouth every 6 (six) hours as needed for pain for up to 12 doses. Max Daily Amount: 4 tablets 12 tablet 01/22/20 25 025 Discontinued ondansetron (ZOFRAN-ODT) 4 MG disintegrating tablet Take 1 tablet (4 mg total) by mouth every 8 (eight) hours as needed for nausea or vomiting for up to 5 days. 15 tablet 01/22/20 25 025 tamsulosin (FLOMAX) 0.4 mg cap 24 hr capsule Take 1 capsule (0.4 mg total) by mouth daily for 7 days Or until stone passes. 7 capsule 01/22/20 25 025 Active Problems Problem Noted Date Diagnosed Date [...] Date Haider rded Speak language other than Fijian at home Not on file 11/03/2023 Want [...] Mass Index 17.75 01/21/2025 3:58 PM EDT Plan of Treatment Upcoming Encounters Date Type Department Care Team (Late st Contact Info) Description 05/11/2025 1:30 PM EST Office Visit [facility] Pulmonology - [address] [place] [id number] Mark Love MD [address] [place] [address] Procedures Procedure Name Priority Date/Time Associated Diagnosis Comments URINALYSIS MICROSCOPIC STAT 5:33 PM EDT URINALYSIS, REFLEX MICROSCOPIC AND CULTURE IF INDICATED STAT 01/21/2025 5:[address] ABDOMEN/PELVIS WITH IV CONTRAST STAT 01/21/2025 4:58 PM EDT COMPREHENSIVE METABOLIC PANEL STAT 01/21/2025 4:10 PM EDT CBC W/ AUTO DIFF STAT 01/21/2025 4:10 PM EDT RI PULMONARY STRESS TESTING Routine 12/09/2024 1:08 PM EDT Panlobular emphysema (HCC) from Last 3 Months Results * (ABNORMAL) Urinalysis, Reflex Microscopic and Culture If Indicated (01/21/2025 5:33 PM EDT) Color, UA Light Yellow 01/21/2025 5:43 PM EDT [facility] Clarity, UA Clear Clear 01/21/2025 5:43 PM EDT [facility] Specific [place], UA 1.045(H) 1.005 - 1.030 01/21/2025 5:43 PM EDT [facility] pH, UA 7.0 6.0 - 8.0 01/21/2025 5:43 PM EDT [facility] Leukocytes, UA Negative Negative 01/21/2025 5:43 PM EDT [facility] Nitrite, UA Negative Negative 01/21/2025 5:43 PM EDT [facility] Protein, UA Negative Negative 01/21/2025 5:43 PM EDT [facility] Glucose, UA Normal Normal 01/21/2025 5:43 PM EDT [facility] Ketones, UA 1+(A) Negative 01/21/2025 5:43 PM EDT [facility] Bilirubin, UA Negative Negative 01/21/2025 5:43 PM EDT [facility] Blood, UA 3+(A) Negative 01/21/2025 5:43 PM EDT [facility] Urobilinogen, UA Normal Normal 01/21/2025 5:43 PM EDT [facility] Specimen Source Urine, Clean Catch 01/21/2025 5:43 PM EDT [facility] Urine URINE SPECIMEN COLLECTION, CLEAN CATCH / Unknown 01/21/2025 5:33 PM EDT 01/21/2025 5:36 PM EDT us Darnell Avila CREW CLERK URINE ORDERABLES Final Result [facility] [address] [place] [address], [facility] [phone] * (ABNORMAL) Urinalysis Microscopic Only (01/21/2025 5:33 PM EDT) WBC, UA 0-2(A) None Seen /HPF 01/21/2025 5:46 PM EDT [facility] RBC, UA Too Numerous To Count(A) None Seen /HPF 01/21/2025 5:46 PM EDT [facility] Bacteria, UA None Seen None Seen, Trace 01/21/2025 5:46 PM EDT [facility] Mucus 1+(A) None Seen 01/21/2025 5:46 PM EDT [facility] SQUAMOUS EPITHELIAL None Seen None Seen /HPF 01/21/2025 5:46 PM EDT [facility] Urine URINE SPECIMEN COLLECTION, CLEAN CATCH / Unknown 01/21/2025 5:33 PM EDT 01/21/2025 5:36 PM EDT us Darnell Avila CREW CLERK URINE ORDERABLES Final Result Performing Organization Address City/State/[facility] Co de Phone Number [facility] [address] [place] [address] * CT ABDOMEN/PELVIS WITH IV CONTRAST (01/21/2025 [...] Barrios. Transcribed by Octavio Jorgensen. Darnell Avila APRN IM CT ORDERABLES Final Result * (ABNORMAL) CBC with Auto Diff (01/21/2025 4:10 PM EDT) WBC 10.5(H) 4.2 - 9.1 K/ L 01/21/2025 4:22 PM EDT [facility] RBC 4.70 4.63 - 6.08 M/ L 01/21/2025 4:22 PM EDT [facility] Hemoglobin 14.5 13.7 - 17.5 GM/DL 01/21/2025 4:22 PM EDT [facility] Hematocrit 42.9 40.1 - 51.0 % 01/21/2025 4:22 PM EDT [facility] MCV 91 79 - 92 fL 01/21/2025 4:22 PM EDT [facility] MCH 30.9 25.7 - 32.2 pg 01/21/2025 4:22 PM EDT [facility] MCHC 33.8 32.3 - 36.5 GM/DL 01/21/2025 4:22 PM EDT [facility] RDW 13.4 11.6 - 14.4 % 01/21/2025 4:22 PM EDT [facility] Platelets 209 140 - 375 K/CU MM 01/21/2025 4:22 PM EDT [facility] MPV 9.9 9.4 - 12.4 fL 01/21/2025 4:22 PM EDT [facility] % Neutros 87(H) 34 - 68 % 01/21/2025 4:22 PM EDT [facility] % Lymphs 8(L) 22 - 53 % 01/21/2025 4:22 PM EDT [facility] % Monos 5 5 - 12 % 01/21/2025 4:22 PM EDT [facility] % Eos 0(L) 1 - 7 % 01/21/2025 4:22 PM EDT [facility] % Baso 0 0 - 1 % 01/21/2025 4:22 PM EDT [facility] NRBC Absolute <0.01 0 - 0.012 K/ul 01/21/2025 4:22 PM EDT [facility] # Neutros 9.07(H) 1.78 - 5.38 K/ L 01/21/2025 4:22 PM EDT [facility] # Lymphs 0.87(L) 1.32 - 3.57 K/ L 01/21/2025 4:22 PM EDT [facility] # Monos 0.47 0.30 - 0.82 K/ L 01/21/2025 4:22 PM EDT [facility] # Eos <0.03(L) 0.04 - 0.54 K/ L 01/21/2025 4:22 PM EDT [facility] # Baso 0.04 0.01 - 0.08 K/ L 01/21/2025 4:22 PM EDT [facility] Immature Granulocytes-Re lative 0.20 0.01 - 0.43 % 01/21/2025 4:22 PM T [facility] # IG <0.03 0.00 - 0.03 K/uL 01/21/2025 4:22 PM T [facility] Blood Venipuncture / Unknown 01/21/2025 4:10 PM EDT 01/21/2025 4:20 PM EDT Narrative [facility] - 01/21/2025 4:22 PM EDT When [...] Atypical Lymph flag noted us Darnell Avila CREW CLERK LAB BLOOD ORDERABLES Final Resu lt [facility] [address] [phone] * (ABNORMAL) Comprehensive metabolic panel (01/21/2025 4:10 PM EDT) Sodium 142 136 - 145 meq/L 01/21/2025 4:38 PM EDT [facility] Potassium 4.6 3.4 - 5.1 meq/L 01/21/2025 4:38 PM EDT [facility] Chloride 106 98 - 112 meq/L 01/21/2025 4:38 PM EDT [facility] CO2 25 22 - 29 meq/L 01/21/2025 4:38 PM EDT [facility] Calcium 9.3 8.4 - 10.2 mg/dL 01/21/2025 4:38 PM EDT [facility] Glucose 105 82 - 115 mg/dL 01/21/2025 4:38 PM EDT [facility] BUN 25.9(H) 8.4 - 25.7 mg/dL 01/21/2025 4:38 PM EDT [facility] Creatinine 0.79 0.72 - 1.25 mg/dL 01/21/2025 4:38 PM EDT [facility] BUN/Creatinine 33(H) 8 - 20 01/21/2025 4:38 PM EDT [facility] eGFR (mL/min/1.73m2) 94 >=60 mL/min/1. 73m2 01/21/2025 4:38 PM EDT [facility] Comment:ESTIMATED GFR IS NOT ACCURATE CREATININE CLEARANCE IN PREDICTING GLOMERULAR FILTRATION RATE. ESTIMATED GFR IS NOT APPLICABLE FOR DIALYSIS PATIENTS. Albumin 4.1 3.5 - 5.0 g/dL 01/21/2025 4:38 PM EDT [facility] Alkaline Phosphatase 71 40 - 150 U/L 01/21/2025 4:38 PM EDT [facility] ALT 19 <=45 U/L 01/21/2025 4:38 PM EDT [facility] Comment: ALT2 reagent used for testing does not contain P5P supplementation and therefore may miss ALT elevations in patients with B6 deficiency. This population may be as high as 10% in the [place], with risk factors including malabsorption, drug interactions, and alcoholic hepatitis. AST 40(H) 11 - 34 U/L 01/21/2025 4:38 PM EDT [facility] Comment: AST2 reagent used for testing does not contain P5P supplementation and therefore may miss AST elevations in patients with B6 deficiency. This population may be as high as 10% in the [place], with risk factors including malabsorption, drug interactions, and alcoholic hepatitis. Total Bilirubin 0.9 0.2 - 1.2 mg/dL 01/21/2025 4:38 PM EDT [facility] Protein, Total 7.6 6.4 - 8.3 g/dL 01/21/2025 4:38 PM EDT [facility] Globulin 3.5 2.5 - 4.1 g/dL 01/21/2025 4:38 PM EDT [facility] Anion Gap 16(H) 4 - 12 01/21/2025 4:38 PM EDT [facility] A/G Ratio 1.2 0.7 - 1.9 01/21/2025 4:38 PM EDT [facility] Osmolality Calc 288.2 mOsm/kg 4:38 PM EDT [facility] Blood Venipuncture / Unknown 01/21/2025 4:10 PM EDT 01/21/2025 4:20 PM EDT us Darnell Avila APRN LAB BLOOD ORDERABLES Final Resu lt [facility] [address] [place] [address] * Pulmonary Function Testing (12/09/2024 1:08 PM EDT) Anatomical Region Laterality Modality Other Narrative 12/14/2024 9:50 AM EDT Assessment - Prebronchodilator spirometry reveal reduced FEV1/FVC ratio 0.29, 36% of predicted, FEV1 0.41 L, 16% of predicted, FVC 1.42 L, 44% of predicted. - Postbronchodilator spirometry revealed reduced FEV1/FVC ratio 0.29, 37% of predicted, FEV1 0.46, 81% of predicted, FVC 1.6 L, 49% of predicted. - Flow-volume loop-obstructive pattern - Significant bronchodilator response noted. Conclusion - Very severe COPD with postbronchodilator FEV1 of 18% of predicted. - Significant bronchodilator response noted. 6-minute walk test - Instructional Developer comments-patient had a difficult time with 6-minute walk test because he struggled to catch his breath. Once oxygen was applied, patient did much better. He stated that he could even walk better and was not out of breath as better as before oxygen. Dyspnea scale started with 3 and increased to 8 with walking. - Fatigue scale at 1. - Oxygen saturation started with 91% on room air, dropped to 87% after 2 minutes and applied 2 L nasal cannula and maintaining good oxygenation with a 2 L. - Walking distance 100 feet / 121 m - Today number rest-2 times Conclusion Exertional dyspnea and hypoxemia requiring 2 L nasal cannula, recommend to use supplemental oxygen 2 L- 25/11. Mark Love MD PFT ORDERABLES Final Result from Last 3 Months Insurance Stepan ARIAS [place] PEREZ [id number] [address] [place] [address] [place] [address] SUPP Care Teams Rn Surgical Pcu Relationship Specialty Start Date End Date Collette Rendon APRN PCP - General Emergency Medicine 01/21/25 Barry Bernal MD [address] [place] [address] Referring Physician Family Medicine 01/21/25
--- OUTSIDE RECORDS SUMMARY | 2025-02-14 08:59 | XMS_ITS | Encounter Summary ---
Author Organization [employer] ([place], [place], [place], [place]) Address [address] [place] [address] Care Team Providers Care Dredge Hand Name Role Phone Collette Rendon APRN Primary Care Provider [phone] Barry Bernal MD Unavailable [phone] Encounter Details Date Type Department Care Team (Late st Contact Info) Description 02/25/2020 Transcribed Document [facility] [place] [address] [place] [address] Dulce Maria Duncan MD [address] [place], [place] [id number] Social History Tobacco Use Types Packs/Day Years [...] Duncan MD - 02/25/2020 1:53 PM CDT Patient Education [...] Fats and oils Meat fat, or shortening. Gray butter, hydrogenated oils, palm oil, coconut oil, [...] 10/20/2012 Document Revised: 06/25/2018 Document Reviewed: 05/29/2018 [employer] Patient Education ? 2020 [employer] Femoral Endarterectomy, Care After This sheet [...] and water are not available, use hand visual arts teacher. ? Change your dressing as told by [...] medicines you take. General instructions ??? Take agap-jdx-uehcplr and prescription medicines only as told by [...] fried or sweet foods. ? Take an ouav-hsa-mynytpn or prescription medicine for constipation. ??? Wear [...] 07/16/2010 Document Revised: 02/11/2019 Document Reviewed: 03/05/2018 [employer] Patient Education ? 2020 [employer]. Femoral Endarterectomy Femoral endarterectomy is surgery to [...] including vitamins, herbs, eye drops, creams, and mdkv-ltt-bnxgtqv medicines. ??? Any problems you or family [...] tells you to take them. ? Taking wkvs-jwb-xevrdnk medicines, vitamins, herbs, and supplements. Staying hydrated [...] 07/16/2010 Document Revised: 01/15/2019 Document Reviewed: 03/05/2018 [employer] Patient Education ? 2020 [employer]. Cardiovascular Pseudoaneurysm An aneurysm is a bulge [...] Follow these instructions at home: ??? Take wwoi-ahp-ltmnjhg and prescription medicines only as told by [...] on its own without treatment. ??? Take qhfm-hvd-dioxmol and prescription medicines only as told by [...] 10/07/2008 Document Revised: 01/27/2019 Document Reviewed: 01/27/2019 Elsevier Patient Education ? 2020 [employer] Radiology Femoral Site Care This sheet [...] and water are not available, use hand visual arts teacher. ? Change your dressing as told by [...] you relax (sedative). General instructions ??? Take nwwg-enf-jkomkki and prescription medicines only as told by [...] 12/23/2014 Document Revised: 05/04/2018 Document Reviewed: 05/04/2018 [employer] Patient Education ? 2019 [employer] Electronically signed by Elisa Prajapati Conversion Casino Surveillance Officer Cerner at 08/21/2022 11:56 AM CDT documented in this encounter Plan of Treatment Upcoming Encounters Date Type Department Care Team (Late st Contact Info) Description 05/11/2025 1:30 PM EST Office Visit [facility] Pulmonology - [address] [place] [address] Mark Love MD [address] [place] [address] documented as of this encounter Visit Diagnoses Not on filedocumented in this encounter Care Teams Dredge Hand Relationship Specialty Start Date End Date Collette Rendon APRN PCP - General Emergency Medicine 01/21/25 Barry Bernal MD [facility] [address] [address] Referring Physician Family Medicine 01/21/25 documented as of this encounter
--- OUTSIDE RECORDS SUMMARY | 2025-02-14 08:59 | XMS_ITS | Encounter Summary ---
Author Organization [employer] ([place], [place], [place], [place]) Address [address] [place] [address] Care Team Providers Care Aerospace Medicine Physician Name Role Phone Collette Rendon APRN Primary Care Provider [phone] Barry Bernal MD Unavailable [phone] Encounter Details Date Type Department Care Team (Late st Contact Info) Description 01/21/2020 Transcribed Document [facility] Family Medicine [address] [place] [address] ProviderDulce Maria MD [address], [place] [id number] Social History Tobacco Use Types Packs/Day Years [...] TOM POWER, PT - 01/21/2020 11:59 EDT Electronically signed by Victorina [facility] Conversion Parking Attendant Cerner at 08/21/2022 11:55 AM CDT documented in this encounter Plan of Treatment Upcoming Encounters Date Type Department Care Team (Late st Contact Info) Description 05/11/2025 1:30 PM EST Office Visit [facility] Pulmonology - [address] [place] [address] Mark Love MD [address] [place] [address] documented as of this encounter Visit Diagnoses Not on filedocumented in this encounter Care Teams Aerospace Medicine Physician Relationship Specialty Start Date End Date Collette Rendon, LOCAL DELIVERY TRUCK DRIVER PCP - General Emergency Medicine 01/21/25 Barry Bernal MD [address] [place] [address] Referring Physician Family Medicine 01/21/25 documented as of this encounter
--- OUTSIDE RECORDS SUMMARY | 2025-02-14 08:59 | XMS_ITS | Clinical Summary ---
Author Organization to be ([place], [place], [place], [place]) Address [address] [place] [address] Care Team Providers Care Lunch Truck Operator Name Role Phone Collette Rendon APRN Primary Care Provider [phone] Barry Bernal MD Unavailable [phone] Allergies No known active allergies Medications apixaban (Eliquis) 5 mg tab tablet Take 1 tablet (5 mg total) by mouth. 05/26/19 24 Active atorvastatin (LIPITOR) 80 MG tablet Take 1 tablet (80 mg total) by mouth daily. 11/05/19 24 Active dilTIAZem (CARDIZEM CD) 120 MG 24 hr capsule Take by mouth. 09/17/19 24 Active Bevespi Aerosphere 9-4.8 mcg HFAA SMARTSIG:Via Inhaler 09/17/19 24 Active polyethylene glycol (GoLYTELY) 236-22.74-6.74 -5.86 gram [...] 03/18/2019 11/04/2023 PFO (patent foramen ovale) 01/26/201911/03 Encounters Date Type Department Care Team Description 01/21/2025 4:01 PM EDT - 01/21/2025 7:40 PM EDT Emergency [facility] Emergency Department [address] [place] [address] Donald Garcia DO Left nephrolithiasis (Primary Dx) Discharge Disposition: Home or Self Care 01/21/2025 Travel 12/16/2024 Telephone [facility] [address] [place] [address] Jerel Mcknight Medication Management 12/09/2024 11:28 AM EDT - 12/09/2024 11:59 PM EDT Hospital Encounter [facility] Pulmonary Lab [address] 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); Pulmonary nodules; Shortness of breath on exertion; Ex-smoker 11/25/2024 Travel from Last 3 Months Family History Medical History Relation Name Comments [...] Date Haider rded Speak language other than Sammarinese at home Not on file 11/03/2023 Want [...] Description 05/11/2025 1:30 PM EST Office Visit [facility] Pulmonology - [address] [place] [address] Mark Love MD [address] [place] [address] Health Maintenance Due Date Last Done Comments [...] Pneumococcal 50+ years (2 of 2 - PPSV23, PCV20, or PCV21) 03/17/2020 01/21/2020, 08/29/2016 Falls Risk Screening 05/05/2024 COVID-19 VACCINE (8 2023-2 5 season) 2025 03/17/2024, 02/19/2023, 01/22/2022, Additional history exists Influenza Vaccine (#1) 2025 01/21/2020 Tobacco Cessation Counseling and Screening (12+) 01/21/2026 01/21/2025 Colonoscopy 01/07/2027 01/08/2024 Colorectal Cancer Screening 01/07/2027 Abdominal Aortic Aneurysm (A AA) Screen Completed 01/21/2025, 11/04/2023, 02/15/2020, Additional history exists Procedures Procedure Name Priority Date/Time Associated Diagnosis Comments URINALYSIS MICROSCOPIC STAT 5:33 PM EDT URINALYSIS, REFLEX MICROSCOPIC AND CULTURE IF INDICATED STAT 01/21/2025 5:[address] ABDOMEN/PELVIS WITH IV CONTRAST STAT 01/21/2025 4:58 PM EDT COMPREHENSIVE METABOLIC PANEL STAT 01/21/2025 4:10 PM EDT CBC W/ AUTO DIFF STAT 01/21/2025 4:10 PM EDT [place] PULMONARY STRESS TESTING Routine 12/09/2024 1:08 PM EDT Panlobular emphysema (HCC) from Last 3 Months Results * (ABNORMAL) Urinalysis, Reflex Microscopic and Culture If Indicated (01/21/2025 5:33 PM EDT) Color, UA Light Yellow 01/21/2025 5:43 PM EDT [facility] Clarity, UA Clear Clear 01/21/2025 5:43 PM EDT [facility] Specific [place], UA 1.045(H) 1.005 - 1.030 01/21/2025 5:43 PM EDT [facility] pH, UA 7.0 6.0 - 8.0 01/21/2025 5:43 PM EDT [facility] Leukocytes, UA Negative Negative 01/21/2025 5:43 PM EDT [facility] Nitrite, UA Negative Negative 01/21/2025 5:43 PM EDT [facility] Protein, UA Negative Negative 01/21/2025 5:43 PM EDT [facility] Glucose, UA Normal Normal 01/21/2025 5:43 PM EDT [facility] Ketones, UA 1+(A) Negative 01/21/2025 5:43 PM EDT [facility] Bilirubin, UA Negative Negative 01/21/2025 5:43 PM EDT [facility] Blood, UA 3+(A) Negative 01/21/2025 5:43 PM EDT [facility] Urobilinogen, UA Normal Normal 01/21/2025 5:43 PM EDT [facility] Specimen Source Urine, Clean Catch 01/21/2025 5:43 PM EDT [facility] Urine URINE SPECIMEN COLLECTION, CLEAN CATCH / Unknown 01/21/2025 5:33 PM EDT 01/21/2025 5:36 PM EDT Darnell Avila APRN URINE ORDERABLES Final Result [facility] [address] [place] [address] * (ABNORMAL) Urinalysis Microscopic Only (01/21/2025 5:33 PM EDT) WBC, UA 0-2(A) None Seen /HPF 01/21/2025 5:46 PM EDT [facility] RBC, UA Too Numerous To Count(A) None Seen /HPF 01/21/2025 5:46 PM EDT [facility] Bacteria, UA None Seen None Seen, Trace 01/21/2025 5:46 PM EDT [facility] Mucus 1+(A) None Seen 01/21/2025 5:46 PM EDT [facility] SQUAMOUS EPITHELIAL None Seen None Seen /HPF 01/21/2025 5:46 PM EDT [facility] Urine URINE SPECIMEN COLLECTION, CLEAN CATCH / Unknown 01/21/2025 5:33 PM EDT 01/21/2025 5:36 PM EDT us Darnell Avila APRN URINE ORDERABLES Final Result [facility] [address] [place] [address], [facility] [phone] * CT ABDOMEN/PELVIS WITH IV CONTRAST (01/21/2025 [...] Barrios. Transcribed by Octavio Jorgensen. Darnell Avila LEIDY IMG CT ORDERABLES Final Result * (ABNORMAL) CBC with Auto Diff (01/21/2025 4:10 PM EDT) WBC 10.5(H) 4.2 - 9.1 K/ L 01/21/2025 4:22 PM EDT [facility] RBC 4.70 4.63 - 6.08 M/ L 01/21/2025 4:22 PM EDT [facility] Hemoglobin 14.5 13.7 - 17.5 GM/DL 01/21/2025 4:22 PM EDT [facility] Hematocrit 42.9 40.1 - 51.0 % 01/21/2025 4:22 PM EDT [facility] MCV 91 79 - 92 fL 01/21/2025 4:22 PM EDT [facility] MCH 30.9 25.7 - 32.2 pg 01/21/2025 4:22 PM EDT [facility] MCHC 33.8 32.3 - 36.5 GM/DL 01/21/2025 4:22 PM EDT [facility] RDW 13.4 11.6 - 14.4 % 01/21/2025 4:22 PM EDT [facility] Platelets 209 140 - 375 K/CU MM 01/21/2025 4:22 PM EDT [facility] MPV 9.9 9.4 - 12.4 fL 01/21/2025 4:22 PM EDT [facility] % Neutros 87(H) 34 - 68 % 01/21/2025 4:22 PM EDT [facility] % Lymphs 8(L) 22 - 53 % 01/21/2025 4:22 PM EDT [facility] % Monos 5 5 - 12 % 01/21/2025 4:22 PM EDT [facility] % Eos 0(L) 1 - 7 % 01/21/2025 4:22 PM EDT [facility] % Baso 0 0 - 1 % 01/21/2025 4:22 PM EDT [facility] NRBC Absolute <0.01 0 - 0.012 K/ul 01/21/2025 4:22 PM EDT [facility] # Neutros 9.07(H) 1.78 - 5.38 K/ L 01/21/2025 4:22 PM EDT [facility] # Lymphs 0.87(L) 1.32 - 3.57 K/ L 01/21/2025 4:22 PM EDT [facility] # Monos 0.47 0.30 - 0.82 K/ L 01/21/2025 4:22 PM EDT [facility] # Eos <0.03(L) 0.04 - 0.54 K/ L 01/21/2025 4:22 PM EDT [facility] # Baso 0.04 0.01 - 0.08 K/ L 01/21/2025 4:22 PM EDT [facility] Immature Granulocytes-Re lative 0.20 0.01 - 0.43 % 01/21/2025 4:22 PM EDT [facility] # IG <0.03 0.00 - 0.03 K/uL 01/21/2025 4:22 PM EDT [facility] Blood Venipuncture / Unknown 01/21/2025 4:10 PM EDT 01/21/2025 4:20 PM EDT Narrative [facility] - 01/21/2025 4:22 PM EDT When [...] Atypical Lymph flag noted us Darnell Avila FIELD ASSISTANT LAB BLOOD ORDERABLES Final Resu lt [facility] [address] [phone] * (ABNORMAL) Comprehensive metabolic panel (01/21/2025 4:10 PM EDT) Sodium 142 136 - 145 meq/L 01/21/2025 4:38 PM [facility] Potassium 4.6 3.4 - 5.1 meq/L 01/21/2025 4:38 PM [facility] Chloride 106 98 - 112 meq/L 01/21/2025 4:38 PM [facility] CO2 25 22 - 29 meq/L 01/21/2025 4:38 PM [facility] Calcium 9.3 8.4 - 10.2 mg/dL 01/21/2025 4:38 PM [facility] Glucose 105 82 - 115 mg/dL 01/21/2025 4:38 PM [facility] BUN 25.9(H) 8.4 - 25.7 mg/dL 01/21/2025 4:38 PM [facility] Creatinine 0.79 0.72 - 1.25 mg/dL 01/21/2025 4:38 PM [facility] BUN/Creatinine 33(H) 8 - 20 01/21/2025 4:38 PM [facility] eGFR (mL/min/1.73m2) 94 >=60 mL/min/1. 73m2 01/21/2025 4:38 PM [facility] Comment:ESTIMATED GFR IS NOT ACCURATE CREATININE CLEARANCE IN PREDICTING GLOMERULAR FILTRATION RATE. ESTIMATED GFR IS NOT APPLICABLE FOR DIALYSIS PATIENTS. Albumin 4.1 3.5 - 5.0 g/dL 01/21/2025 4:38 PM [facility] Alkaline Phosphatase 71 40 - 150 U/L 01/21/2025 4:38 PM [facility] ALT 19 <=45 U/L 01/21/2025 4:38 PM [facility] Comment: ALT2 reagent used for testing does not contain P5P supplementation and therefore may miss ALT elevations in patients with B6 deficiency. This population may be as high as 10% in the [place], with risk factors including malabsorption, drug interactions, and alcoholic hepatitis. AST 40(H) 11 - 34 U/L 01/21/2025 4:38 PM EDT [facility] Comment: AST2 reagent used for testing does not contain P5P supplementation and therefore may miss AST elevations in patients with B6 deficiency. This population may be as high as 10% in the [place], with risk factors including malabsorption, drug interactions, and alcoholic hepatitis. Total Bilirubin 0.9 0.2 - 1.2 mg/dL 01/21/2025 4:38 PM EDT [facility] Protein, Total 7.6 6.4 - 8.3 g/dL 01/21/2025 4:38 PM EDT [facility] Globulin 3.5 2.5 - 4.1 g/dL 01/21/2025 4:38 PM EDT [facility] Anion Gap 16(H) 4 - 12 01/21/2025 4:38 PM EDT [facility] A/G Ratio 1.2 0.7 - 1.9 01/21/2025 4:38 PM EDT [facility] Osmolality Calc 288.2 mOsm/kg 4:38 PM EDT [facility] Blood Venipuncture / Unknown 01/21/2025 4:10 PM EDT 01/21/2025 4:20 PM EDT us Darnell Avila APRN LAB BLOOD ORDERABLES Final Resu lt [facility] [address] [phone] * Pulmonary Function Testing (12/09/2024 1:08 PM [...] bronchodilator response noted. 6-minute walk test - Picked Edge Sewing Machine Operator comments-patient had a difficult time with 6-minute [...] to use supplemental oxygen 2 L- 25/11. us Mark Love MD PFT ORDERABLES Final Result from Last 3 Months Insurance MEDICARE [place] [place] [address] Care Teams Lunch Truck Operator Relationship Specialty Start Date End Date Collette Rendon APRN PCP - General Emergency Medicine 01/21/25 Barry Bernal MD [address] [place] [address] Referring Physician Family Medicine 01/21/25
--- OUTSIDE RECORDS SUMMARY | 2025-02-14 08:59 | XMS_ITS | Encounter Summary ---
Author Organization [employer] ([place], [place], [place], [place]) Address [address] [place] [address] Care Team Providers Care Top Cager Name Role Phone Collette Rendon APRN Primary Care Provider [phone] Barry Brenal MD Unavailable [phone] Encounter Details Date Type Department Care Team (Late st Contact Info) Description 02/25/2020 Transcribed Document [facility] [place] [address] [place] [address] ProviderDulce Maria MD [address], [place] [id number] Social History Tobacco Use Types Packs/Day Years Used Date Smoking Tobacco: Never Assessed Sex and Gender Information Value Date Recorded Sex Assigned at Male 10/30/2021 8:44 PM CDT Legal Sex Male 8:44 PM CDT Gender Identity Male 10/30/2021 8:44 PM CDT Sexual Orientation Not on file documented as of this encounter Miscellaneous Notes * Cerner Conversion Note - Dulce Maria ProviderMD - 02/25/2020 10:22 AM CDT Discharge Summary, PT Entered On: 02/25/2020 10:23 EDT Performed On: 02/25/2020 10:22 EDT by DEANNA FLORES STUDENT-PHYSICAL THERAPIST Discharge Summary Reason for Discharge [...] - 02/25/2020 10:22 EDT Electronically signed by Victorina [facility] Conversion Mortgage Servicing Specialist Cerner at 08/21/2022 11:50 AM CDT documented in this encounter Plan of Treatment Upcoming Encounters Date Type Department Care Team (Late st Contact Info) Description 05/11/2025 1:30 PM EST Office Visit [facility] Pulmonology - [address] [place] [address] Mark Love MD [address] [place], [place] [id number] documented as of this encounter Visit Diagnoses Not on filedocumented in this encounter Care Teams Top Cager Relationship Specialty Start Date End Date CarolyngeraldoCollette loweryLEIDY PCP - General Emergency Medicine 01/21/25 Barry Bernal MD [address] [place] [place] [address] Referring Physician Family Medicine 01/21/25 documented as of this encounter
--- OUTSIDE RECORDS SUMMARY | 2025-02-14 08:59 | XMS_ITS | Encounter Summary ---
Author Organization [employer] ([place], [place], [place], [place]) Address [address] [place] [address] Care Team Providers Care Registered Nurse Post Partum Name Role Phone Collette Rendon APRN Primary Care Provider [phone] Barry Bernal MD Unavailable [phone] Encounter Details Date Type Department Care Team (Late st Contact Info) Description 02/25/2020 Transcribed Document [facility] [address] [place] [address] ProviderDulce Maria MD [address], [place] [id number] Social History Tobacco Use Types Packs/Day Years Used Date Smoking Tobacco: Never Assessed Sex and Gender Information Value Date Recorded Sex Assigned at Male 10/30/2021 8:44 PM CDT Legal Sex Male 8:44 PM CDT Gender Identity Male 10/30/2021 8:44 PM CDT Sexual Orientation Not on file documented as of this encounter Miscellaneous Notes * Cerner Conversion Note - Dulce Maria ProviderMD - 02/25/2020 11:27 AM CDT UM Authorization Entered On: 02/25/2020 11:27 EDT Performed On: 02/25/2020 11:27 EDT by Kelsey Molina Rn-Utilization Review Primary Insurance Authorization Authorization and Policy Numbers : Insurance 1 Health Plan: MEDICARE Policy Number: [id number] Authorization Number: Insurance 2 Health Plan: [facility] Policy Number: [id number] Authorization Number: Insurance Primary Name : MEDICARE Authorized Service Begin Date-Primary : 02/24/2020 EDT Historical Authorization Comments-Primary : No Authorization Comments Found Kelsey Molina, Rn-Utilization Review - 02/25/2020 11:27 EDT Electronically signed by Elisa Prajapati Conversion Char Filter Operator Helper Cerner at 08/21/2022 12:06 PM CDT documented in this encounter Plan of Treatment Upcoming Encounters Date Type Department Care Team (Late st Contact Info) Description 05/11/2025 1:30 PM EST Office Visit [facility] Pulmonology - [address] [place] [address] Mark Love MD [address] [place], [place] [phone] documented as of this encounter Visit Diagnoses Not on filedocumented in this encounter Care Teams Registered Nurse Post Partum Relationship Specialty Start Date End Date Justice ColletteLEIDY newman PCP - General Emergency Medicine 01/21/25 Barry Bernal MD [address] [place] [address] Referring Physician Family Medicine 01/21/25 documented as of this encounter
--- OUTSIDE RECORDS SUMMARY | 2025-02-14 08:59 | XMS_ITS | Encounter Summary ---
Author Organization Healthcare Address [address] [place] [address] Care Team Providers Care Oracle Developer Name Role Phone Dinh Ritchie MD Primary Care Provider [phone] Encounter Details Date Type Department Care Team (Latest Contact Info) Description 01/05/2025 Travel Social History Tobacco Use Types Packs/Day [...] Description 02/15/2025 1:00 PM EDT Office Visit [facility] [address] [place] [address] 02/17/2025 1:00 PM EDT Office Visit [facility] [address] [place] [address] 02/22/2025 1:00 PM EDT Office Visit [facility] [address] [place] [address] 02/24/2025 1:00 PM EDT Office Visit [facility] [address] [place] [address] 03/01/2025 1:00 PM EDT Office Visit [facility] [address] [place] [address] 03/03/2025 1:00 PM EDT Office Visit [facility] Pulmonary Rehab [address] [place] [address] 08/11/2025 1:20 PM EDT Office Visit [facility] [place] [address] [place] [address] Allie Serna MD [address] [place] [address] documented as of this encounter Visit Diagnoses [...] documented as of this encounter Care Teams Oracle Developer Relationship Specialty Start Date End Date Dinh Ritchie MD [address] [place], [place] [id number] PCP - General 09/15/20 documented as of this encounter
--- OUTSIDE RECORDS SUMMARY | 2025-02-14 08:59 | XMS_ITS | Encounter Summary ---
Author Organization [employer] ([place], [place], [place], [place]) Address [address] [place] [address] Care Team Providers Care Line Out Worker Name Role Phone Collette Rendon APRN Primary Care Provider [phone] Barry Bernal MD Unavailable [phone] Encounter Details Date Type Department Care Team (Late st Contact Info) Description 01/21/2020 Transcribed Document [facility] [place] [address] [place] [address] ProviderDulce Maria MD [address] [place], [place] [id number] Social History Tobacco Use Types Packs/Day Years [...] - Dulce Maria Duncan MD - 01/21/2020 10:18 AM CDT Stroke/Warfarin Instructions [...] - 01/21/2020 10:18 EDT Electronically signed by Victorina [facility] Conversion Instrument Room Technician Cerner at 08/21/2022 12:10 PM CDT documented in this encounter Plan of Treatment Upcoming Encounters Date Type Department Care Team (Late st Contact Info) Description 05/11/2025 1:30 PM EST Office Visit [facility] Pulmonology - [address] [place] [address] Mark Love MD [address] [place] [address] documented as of this encounter Visit Diagnoses Not on filedocumented in this encounter Care Teams Line Out Worker Relationship Specialty Start Date End Date Collette Rendon APRN PCP - General Emergency Medicine 01/21/25 Barry Bernal MD [address] [place] [place] [address] Referring Physician Family Medicine 01/21/25 documented as of this encounter
--- OUTSIDE RECORDS SUMMARY | 2025-02-14 08:59 | XMS_ITS | Encounter Summary ---
Author Organization Healthcare Address [address] [place] [address] Care Team Providers Care Ice Plant Operator Name Role Phone Dinh Ritchie MD Primary Care Provider [phone] Encounter Details Date Type Department Care Team (Latest Contact Info) Description 01/10/2025 Travel Social History Tobacco Use Types Packs/Day [...] Description 02/15/2025 1:00 PM EDT Office Visit [facility] [address] [place] [address] 02/17/2025 1:00 PM EDT Office Visit [facility] [address] [place] [address] 02/22/2025 1:00 PM EDT Office Visit [facility] [address] [place] [address] 02/24/2025 1:00 PM EDT Office Visit [facility] [address] [place] [address] 03/01/2025 1:00 PM EDT Office Visit [facility] [address] [place] [address] 03/03/2025 1:00 PM EDT Office [facility] Pulmonary Rehab [address] [place] [address] 08/11/2025 1:20 PM EDT Office Visit [facility] [place] [address] [place] [address] Allie Serna MD [address] [place] [address] documented as of this encounter Visit Diagnoses [...] documented as of this encounter Care Teams Ice Plant Operator Relationship Specialty Start Date End Date Dinh Ritchie MD [address] [place], [place] [id number] PCP - General 09/15/20 documented as of this encounter
--- OUTSIDE RECORDS SUMMARY | 2025-02-14 08:59 | XMS_ITS | Encounter Summary ---
Author Organization [employer] ([place], [place], [place], [place]) Address [address] [place] [address] Care Team Providers Care Cheese Weigher Name Role Phone Collette Rendon APRN Primary Care Provider [phone] Barry Bernal MD Unavailable [phone] Encounter Details Date Type Department Care Team (Late st Contact Info) Description 01/21/2020 Transcribed Document [facility] [address] [place] [address] Armond Shell MD [address] [place] [address] Social History Tobacco Use Types Packs/Day Years [...] aortic aneurysm repair. Operative Procedures 01/20/20 ([place]; SJM) 1. Right femoral percutaneous access, large-bore 14-Yi sheath. 2. Left femoral arterial exposure for [...] aortic aneurysm. [facility] he was hemodynamically stable and ready for discharge. His preop COVID came back positive. Pt was asymptomatic on room air. Stated he had COVID in October/November. After a stable hospital course the patient was ready for transfer back to home. Pain was controlled. Diet and activity were well tolerated. Primary Care Provider CARLOS CRAVEN [facility] Vital Signs T: 36.2 ??C TMIN: 36.2 [...] in 4 weeks Rx on chart for [place] 7.5mg Light activity without heavy lifting [id number] Regular diet as tolerated Discharge Follow Up HERBER, CARLOS A, MD-[facility] - Within 5 to 7 days Discharge Medications (5) Active aspirin 81 mg oral tablet 1 Tab, Oral, Daily atorvastatin 80 mg oral tablet 80 mg = 1 Tab, Oral, At Bedtime Bevespi Aerosphere 9 mcg-4.8 mcg/inh inhalation aerosol 2 Puff, Inhalation, BID [place] 7.5 mg-325 mg oral tablet 1 Tab, [...] Description 05/11/2025 1:30 PM EST Office Visit [facility] Pulmonology - [address] [place] [address] Mark Love MD [address] [place] [address] documented as of this encounter Visit Diagnoses Not on filedocumented in this encounter Care Teams Cheese Weigher Relationship Specialty Start Date End Date Collette Rendon, PROPERTY CLAIMS MANAGER PCP - General Emergency Medicine 01/21/25 Barry Bernal MD [facility] [place] [address] Referring Physician Family Medicine 01/21/25 documented as of this encounter
--- OUTSIDE RECORDS SUMMARY | 2025-02-14 08:59 | XMS_ITS | Encounter Summary ---
Author Organization [employer] ([place], [place], [place], [place]) Address [address] [place] [address] Care Team Providers Care Readers' Advisory Service Librarian Name Role Phone Collette Rendon APRN Primary Care Provider [phone]- [phone] Barry Bernal MD Unavailable [phone] Encounter Details Date Type Department Care Team (Late st Contact Info) Description 01/21/2020 Transcribed Document [facility] [place] [address] [place] [address] ProviderDulce Maria MD [address] [place] [address] Social History Tobacco Use Types [...] - Dulce Maria Duncan MD - 01/21/2020 10:19 AM CDT [facility] [place] [address] HAYES MAYS :1950 Visit Time:01/20/2020 Your Visit Summary Your Care Team Admitting Physician - LISA WOOD MD-SUR Attending Physician - LISA WOOD MD-SANIA Primary Care Physician - CARLOS CRAVEN MD-[facility] Referring Physician - CARLOS CRAVEN MD-FAM Your [...] Follow-Up Appointments Follow Up with CARLOS CRAVEN MD-FAM When Within 5 to 7 days Where: [address] [place] [address]- Medications What How Much When Instructions Next Dose acetaminophen-hydrocodone ([place] 7.5 mg-325 mg oral tablet) 1 Tablet(s) [...] to person. It???s important to note that uiftpt-sy-jsettl spread can happen on a continuum. Some [...] least 20 seconds. Use an alcohol-based hand child and adolescent psychologist that contains at least 60% alcohol if [...] clean your hands with an alcohol-based hand child and adolescent psychologist that contains at least 60 to 95% [...] clean your hands with an alcohol-based hand child and adolescent psychologist that contains at least 60% alcohol, covering [...] isolation precautions should be made on a azrn-qj-cbfn basis, in consultation with healthcare providers and state and local health departments. For more information: HYPERLINK http://www.cdc.gov/COVID19 [...] and water are not available, use hand child and adolescent psychologist. ? Change your dressing as told by [...] Getting regular exercise. General instructions ??? Take chlf-jin-bnnryxy and prescription medicines only as told by [...] 11/08/2005 Document Revised: 04/03/2018 Document Reviewed: 07/15/2016 [employer] Games Patient Education ?? 2020 ResearchGate. Emergency Awareness and Preventative Care STROKE is [...] Assistance with quitting is available by contacting 7-879-CKDT-NOW. This is a free resource providing counseling, [...] range between ( 0.0 and 7.0 ) Barton #: 0.57 K/uL -- Normal range between ( 0.16 and 1.00 ) Eos #: 0.24 x10(3)/uL -- Normal range between ( 0.00 and 0.80 ) [place] %: 7.5 % -- Normal range between [...] between ( 20.0 and 40.0 ) Patient Name:HAYES MAYS I have received and understand this information and was given the opportunity to ask questions. Patient/Senior Dentist Name: Patient/Senior Dentist Signature: Relationship to Patient: Clinician/Hospital Senior Dentist Signature: Date: Electronically signed by [facility], [facility] Conversion Transactional Attorney Cerner at 08/21/2022 12:17 PM CDT documented in this encounter Plan of Treatment Upcoming Encounters Date Type Department Care Team (Late st Contact Info) Description 05/11/2025 1:30 PM EST Office Visit [facility] Pulmonology - [address] [place] [address] Mark Love MD [address] [place] [address] documented as of this encounter Visit Diagnoses Not on filedocumented in this encounter Care Teams Readers' Advisory Service Librarian Relationship Specialty Start Date End Date Collette Rendon APRN PCP - General Emergency Medicine 01/21/25 Barry Bernal MD [address] [place] [place] [address] Referring Physician Family Medicine 01/21/25 documented as of this encounter
--- OUTSIDE RECORDS SUMMARY | 2025-02-14 08:59 | XMS_ITS | Encounter Summary ---
Author Organization [employer] ([place], [place], [place], [place]) Address [address] [place] [address] Care Team Providers Care New Car Make Ready Worker Name Role Phone Collette Rendon APRN Primary Care Provider [phone] Barry Bernal MD Unavailable [phone] Encounter Details Date Type Department Care Team (Late st Contact Info) Description 02/25/2020 Transcribed Document [facility] [place] [address] [place] [address] ProviderDulce Maria MD [address], [place] [id number] Social History Tobacco Use Types Packs/Day Years Used Date Smoking Tobacco: Never Assessed Sex and Gender Information Value Date Recorded Sex Assigned at Male 10/30/2021 8:44 PM CDT Legal Sex Male 8:44 PM CDT Gender Identity Male 10/30/2021 8:44 PM CDT Sexual Orientation Not on file documented as of this encounter Miscellaneous Notes * Cerner Conversion Note - Dulce Maria ProviderMD - 02/25/2020 2:00 AM CDT Program Clerk Details Entered On: 02/25/2020 4:24 EDT Performed [...] Description 05/11/2025 1:30 PM EST Office Visit [facility] Pulmonology - [address] [place] [address] Mark Love MD [address] [place] [address] documented as of this encounter Visit Diagnoses Not on filedocumented in this encounter Care Teams New Car Make Ready Worker Relationship Specialty Start Date End Date CarolyngeraldoCollette loweryLEIDY PCP - General Emergency Medicine 01/21/25 Barry Bernal MD [address] [place] [address] Referring Physician Family Medicine 01/21/25 documented as of this encounter
--- OUTSIDE RECORDS SUMMARY | 2025-02-14 08:59 | XMS_ITS | Encounter Summary ---
Author Organization [employer] ([place], [place], [place], [place]) Address [address] [place] [address] Care Team Providers Care Account Solutions Analyst Name Role Phone Collette Rendon APRN Primary Care Provider [phone] Barry Bernal MD Unavailable [phone] Encounter Details Date Type Department Care Team (Late st Contact Info) Description 01/21/2020 Transcribed Document [facility] [place] [address] [place] [address] ProviderDulce Maria MD [address] [place] [address] Social History Tobacco Use Types [...] Duncan MD - 01/21/2020 10:19 AM CDT [facility] [place] [address] HAYES MAYS :1950 Visit Time:01/20/2020 Your Visit Summary Your Care Team Admitting Physician - LISA WOOD MD-SUR Attending Physician - LISA WOOD MD-SANIA Primary Care Physician - CARLOS CRAVEN MD-[facility] Referring Physician - CARLOS CRAVEN MD-FAM Your [...] When Within 5 to 7 days Where: [address] [place] [address]- Medications What How Much When Instructions Next Dose acetaminophen-hydrocodone ([place] 7.5 mg-325 mg oral tablet) 1 Tablet(s) [...] to person. It???s important to note that kjmrux-ux-ywrmbl spread can happen on a continuum. Some [...] least 20 seconds. Use an alcohol-based hand automation tester that contains at least 60% alcohol if [...] clean your hands with an alcohol-based hand automation tester that contains at least 60 to 95% [...] clean your hands with an alcohol-based hand automation tester that contains at least 60% alcohol, covering [...] isolation precautions should be made on a urdm-mx-lufr basis, in consultation with healthcare providers and [...] and water are not available, use hand automation tester. ? Change your dressing as told by [...] Getting regular exercise. General instructions ??? Take fdzb-afh-ajgtjux and prescription medicines only as told by [...] 11/08/2005 Document Revised: 04/03/2018 Document Reviewed: 07/15/2016 [employer]Replay Patient Education ?? 2020 [employer] Collaborative. Emergency Awareness and Preventative Care STROKE is [...] Assistance with quitting is available by contacting 9-720-AYTN-NOW. This is a free resource providing counseling, [...] range between ( 0.0 and 7.0 ) [place] #: 0.57 K/uL -- Normal range between ( 0.16 and 1.00 ) Eos #: 0.24 x10(3)/uL -- Normal range between ( 0.00 and 0.80 ) [place] %: 7.5 % -- Normal range between [...] was given the opportunity to ask questions. Patient/Trial Examiner Name: Patient/Trial Examiner Signature: Relationship to Patient: Clinician/Hospital Trial Examiner Signature: Date: Electronically signed by [facility], [facility] Conversion Rail Car Repairer Cerner at 08/21/2022 12:11 PM CDT documented in this encounter Plan of Treatment Upcoming Encounters Date Type Department Care Team (Late st Contact Info) Description 05/11/2025 1:30 PM EST Office Visit [facility] Pulmonology - [address] [place] [address] Mark Love MD [address] [place] [address] documented as of this encounter Visit Diagnoses Not on filedocumented in this encounter Care Teams Account Solutions Analyst Relationship Specialty Start Date End Date Collette Rendon APRN PCP - General Emergency Medicine 01/21/25 Barry Bernal MD [address] [facility] [address] Referring Physician Family Medicine 01/21/25 documented as of this encounter
--- OUTSIDE RECORDS SUMMARY | 2025-02-14 08:59 | XMS_ITS | Encounter Summary ---
Author Organization [employer] ([place], [place], [place], [place]) Address [address] [place] [address] Care Team Providers Care Chain Builder Name Role Phone Collette Rendon APRN Primary Care Provider [phone] Barry Bernal MD Unavailable [phone] Encounter Details Date Type Department Care Team (Late st Contact Info) Description 01/21/2020 Transcribed Document [facility] Family Medicine [address] [place] [address] ProviderDulce Maria MD [address] [place] [address] Social History Tobacco Use Types [...] Note - Dulce Maria ProviderMD - 01/21/2020 2:00 AM CDT Epic Trainer Details Entered On: 01/21/2020 0:41 EDT Performed [...] Description 05/11/2025 1:30 PM EST Office Visit [facility] Pulmonology - [address] [place] [phone] Mark Love MD [address] [place] [address] documented as of this encounter Visit Diagnoses Not on filedocumented in this encounter Care Teams Chain Builder Relationship Specialty Start Date End Date Collette RendonLEIDY PCP - General Emergency Medicine 01/21/25 Barry Bernal MD [address] [place] [address] Referring Physician Family Medicine 01/21/25 documented as of this encounter
--- OUTSIDE RECORDS SUMMARY | 2025-02-14 08:59 | XMS_ITS | Encounter Summary ---
Author Organization Healthcare Address [address] [place] [address] Care Team Providers Care News Content Specialist Name Role Phone Dinh Ritchie MD Primary Care Provider [phone] Encounter Details Date Type Department Care Team (Late st Contact Info) Description 01/05/2025 Plan of Care Documentation [facility] Pulmonary Rehab [address] [place] [address] Social History Tobacco Use Types Packs/Day Years [...] Description 02/15/2025 1:00 PM EDT Office Visit [facility] [address] [place] [address] 02/17/2025 1:00 PM EDT Office [facility] [address] [place] [address] 02/22/2025 1:00 PM EDT Office Visit [facility] [address] [place] [address] 02/24/2025 1:00 PM EDT Office [facility] [address] [place] [address] 03/01/2025 1:00 PM EDT Office [facility] [address] [place] [address] 03/03/2025 1:00 PM EDT Office Visit [facility] [address] [place] [address] 08/11/2025 1:20 PM EDT Office Visit [facility] [address] [place] [address] Allie Serna MD [address] [place] [address] documented as of this encounter Visit Diagnoses [...] documented as of this encounter Care Teams News Content Specialist Relationship Specialty Start Date End Date Dinh Ritchie MD [address] [facility] [place] [place] [address] PCP - General 09/15/20 documented as of this encounter
--- OUTSIDE RECORDS SUMMARY | 2025-02-14 09:00 | XMS_ITS | Encounter Summary ---
Author Organization [employer] ([place], [place], [place], [place]) Address [address] [place] [address] Care Team Providers Care Knurling Machine Tender Name Role Phone Collette Rendon APRN Primary Care Provider [phone] Barry Bernal MD Unavailable [phone] Encounter Details Date Type Department Care Team (Late st Contact Info) Description 02/24/2020 Transcribed Document [facility] [place] [address] [place] [address] ProviderDulce Maria MD [address] [place], [place] [id number] Social History Tobacco Use Types Packs/Day Years [...] Lt kidney cyst, stroke; 2019, foramen ovale; 2018 repair Dx: AAA, Lt extnernal iliac pseudoaneurysm, [...] Room air Therapist Assessment During Intervention : Nsg Iman stated it was ok to take off [...] Upper Extremity Right UE Active ROM : WFL Right UE Strength : WF Right UE Strength : WFL DEANNA FLORES STUDENT-PHYSICAL THERAPIST - 02/25/2020 10:03 EDT Right Upper Extremity MMT Shoulder Flexion 0-180 : 5/normal Elbow Flexion 0-150 : 5/normal Elbow Extension 0-0 : 5/normal DEANNA FLORES STUDENT-PHYSICAL THERAPIST - 02/25/2020 10:03 EDT Hand Inspector Clip On Sunglasses Test : WNL on Rt Upper Extremity Comment : ROM/MMT of LUE held secondary to arterial line. DEANNA FLORES STUDENT-PHYSICAL THERAPIST - 02/25/2020 10:03 EDT Lower Extremity RLE Active ROM : WFL DEANNA FLORES STUDENT-PHYSICAL THERAPIST - 02/25/2020 10:03 EDT Right [...] to Sit : Rehab Complete independence DEANNA FLORES STUDENT-PHYSICAL THERAPIST - 02/25/2020 10:03 EDT Sit [...] Description 05/11/2025 1:30 PM EST Office Visit [facility] Pulmonology - [address] [place] [address] Mark Love MD [address] [place], [place] [address] documented as of this encounter Visit Diagnoses Not on filedocumented in this encounter Care Teams Knurling Machine Tender Relationship Specialty Start Date End Date Collette RendonLEIDY PCP - General Emergency Medicine 01/21/25 Barry Bernal MD [address] [place] [address] Referring Physician Family Medicine 01/21/25 documented as of this encounter
--- OUTSIDE RECORDS SUMMARY | 2025-02-14 09:00 | XMS_ITS | Encounter Summary ---
Author Organization [employer] ([place], [place], [place], [place]) Address [address] [place] [address] Care Team Providers Care Philosophy Professor Name Role Phone Collette Rendon APRN Primary Care Provider [phone] Barry Bernal MD Unavailable [phone] Encounter Details Date Type Department Care Team (Late st Contact Info) Description 02/24/2020 Transcribed Document [facility] [place] [address] [place] [address] ProviderDulce Maria MD [address], [place] [id number] Social History Tobacco Use Types Packs/Day Years Used Date Smoking Tobacco: Never Assessed Sex and Gender Information Value Date Recorded Sex Assigned at Male 10/30/2021 8:44 PM CDT Legal Sex Male 8:44 PM CDT Gender Identity Male 10/30/2021 8:44 PM CDT Sexual Orientation Not on file documented as of this encounter Miscellaneous Notes * Cerner Conversion Note - Dulce Maria Duncan MD - 02/24/2020 1:49 PM CDT Pain Assessment [...] Description 05/11/2025 1:30 PM EST Office Visit [facility] Pulmonology - [address] [place] [address] Mark Love MD [address] [place], [place] [address] documented as of this encounter Visit Diagnoses Not on filedocumented in this encounter Care Teams Philosophy Professor Relationship Specialty Start Date End Date Collette Rendon APRN PCP - General Emergency Medicine 01/21/25 Barry Bernal MD [address] [place] [address] Referring Physician Family Medicine 01/21/25 documented as of this encounter
--- OUTSIDE RECORDS SUMMARY | 2025-02-14 09:00 | XMS_ITS | Encounter Summary ---
Author Organization [facility] ([place], [place], [place], [place]) Address [address] [place] [address] Care Team Providers Care Periodicals Library Assistant Name Role Phone Collette Rendon APRN Primary Care Provider [phone] Barry Bernal MD Unavailable [phone] Encounter Details Date Type Department Care Team (Late st Contact Info) Description 02/24/2020 Transcribed Document [facility] [place] [address] [place] [address] ProviderDulce Maria MD [address] [id number] Social History Tobacco Use Types Packs/Day Years Used Date Smoking Tobacco: Never Assessed Sex and Gender Information Value Date Recorded Sex Assigned at Male 10/30/2021 8:44 PM CDT Legal Sex Male 8:44 PM CDT Gender Identity Male 10/30/2021 8:44 PM CDT Sexual Orientation Not on file documented as of this encounter Miscellaneous Notes * Cerner Conversion Note - Dulce Maria ProviderMD - 02/24/2020 6:34 AM CDT Admission [...] Spouse Legal Guardian : No Support Person/Patient Scientist Propagator : Yes Support Person/Pt Rep Name : Heike Reeves - Contact Password : HEIKE Support Person/Pt Rep Contact Information : [phone] w Want Family/Rep/Phys Notified of Admit : No Emergency Contact #1 : Heiketung Reeves Emergency Contact #1 Emergency Contact #1 Relationship : Emergency Contact #2 : na Emergency Contact #2 Phone Number : na Emergency Contact #2 Relationship : na Information Obtained From : Patient Primary Language : Samoan Communication Barrier : None Residential Carpenter Needed : No Objects to Sharing Info [...] Scale Risk Level : 25-45 Medium Risk Kulm Fall Interventions : Bed in low position, [...] Smokeless Tobacco Status : Never Implant/Device Type, Telegraph Messenger and Model : loop cardiac recorder; cardiac [...] : Measured Height Entry Format : [place] Height, Feet : 5 ft(Converted to: 152 cm, 60 Inch) Height, Inches : 6 Inch(Converted to: 0 ft 6 Inch, 15.24 cm) Clinical Height : 167.64 cm Weight Source : Standing scale Weight Entry Format : [place] Clinical Dosing Weight : 60.91 kg Weight, Pounds : 134 lb Weight, Ounces : 0 oz Body Surface Area (BSA) : 1.69 m2 Body Mass Index : 21.7 kg/m2 [place] Body Weight : 63 kg CODIE PINEDA RN - 02/24/2020 15:03 EDT Infectious Disease History Has the patient ever been tested for COVID-19? : Yes, Patient stated results Negative CODIE PINEDA RN - 02/24/2020 16:29 EDT Where was the COVID-19 Testing completed? : [facility] Date of COVID-19 test known? : [...] Declined Vaccination Influenza Vaccine Education Topics : [facility] educational materials provided for patient CODIE PINEDA [...] : Declined Vaccination Pneumococcal Vaccine Education : [facility] educational materials provided for patient CODIE PINEDA RN - 02/24/2020 15:03 EDT Order Details Order Detail : N/A CODIE PINEDA RN - 02/24/2020 15:03 EDT Nutrition History Weight Entry Format Nutrition History : [place] Feeding Ability : Independent Usual Weight, Pounds [...] CODIE PINEDA RN - 02/24/2020 15:03 EDT [place] Suicide Severity Rating Scale (C-SSRS) CSSRS Past [...] CODIE PINEDA RN - 02/24/2020 15:03 EDT Electronically signed by Victorina, [facility] Conversion Grain Broker And Market Operator Cerner at 08/21/2022 11:53 AM CDT documented in this encounter Plan of Treatment Upcoming Encounters Date Type Department Care Team (Late st Contact Info) Description 05/11/2025 1:30 PM EST Office Visit [facility] Pulmonology - [address] [place] [address] Mark Love MD [address] [place] [address] documented as of this encounter Visit Diagnoses Not on filedocumented in this encounter Care Teams Periodicals Library Assistant Relationship Specialty Start Date End Date Collette Rendon APRN PCP - General Emergency Medicine 01/21/25 Barry Bernal MD [address] [place] [address] Referring Physician Family Medicine 01/21/25 documented as of this encounter
--- OUTSIDE RECORDS SUMMARY | 2025-02-14 09:00 | XMS_ITS | Encounter Summary ---
Author Organization [employer] ([place], [place], [place], [place]) Address [address] [place] [address] Care Team Providers Care Tail Worker Name Role Phone Collette Rendon APRN Primary Care Provider [phone] Barry Bernal MD Unavailable [phone] Encounter Details Date Type Department Care Team (Late st Contact Info) Description 02/24/2020 Transcribed Document [facility] [place] [address] [place] [address] ProviderDulce Maria MD [address] [place] [address] Social History Tobacco Use Types [...] - Dulce Maria Duncan MD - 02/24/2020 10:50 AM CDT [facility] Main OR Preop Summary Primary Physician: LISA WOOD MD-SUR Finalized Date/Time: 02/24/20 15:36:37 Pt. Name: HAYES MAYS /Sex: 1950 Male Med Rec #: [id number] Physician: LISA WOOD MD-SUR Financial #: [id number] Pt. Type: I Room/Bed: ASA/4 Admit/Disch: 02/24/20 06:34:00 - Institution: [facility] PreOp Case Times Entry 1 In Preop 02/24/20 08:16:00 Ready for Holding n/a Room Patient Ready for 02/24/20 09:15:00 Surgery Patient Out of Preop 02/24/20 10:21:00 Patient Out of n/a Holding Room Last Modified By: Izzy Angeles RN 02/24/20 15:36:36 [facility] PreOp Case Times Audit 02/24/20 15:36:36 Pest Control Operator: [email or web address] Modifier: [email or web address] <+> 1 Patient Out of Preop 02/24/20 09:22:58 Pest Control Operator: [id number] Modifier: [email or web address] <+> 1 Patient Ready for Surgery Finalized By: Izzy Angeles RN Document Signatures Signed By: Izzy Angeles RN 02/24/20 15:36 Electronically signed by Victorina [facility] Conversion Rail Switchman Cerner at 08/21/2022 11:54 AM CDT documented in this encounter Plan of Treatment Upcoming Encounters Date Type Department Care Team (Late st Contact Info) Description 05/11/2025 1:30 PM EST Office Visit [facility] Pulmonology - [address] [place] [address] Mark Love MD [address] [place] [address] documented as of this encounter Visit Diagnoses Not on filedocumented in this encounter Care Teams Tail Worker Relationship Specialty Start Date End Date Collette RendonLEIDY PCP - General Emergency Medicine 01/21/25 Barry Bernal MD [address] [place] [address] Referring Physician Family Medicine 01/21/25 documented as of this encounter
--- OUTSIDE RECORDS SUMMARY | 2025-02-14 09:00 | XMS_ITS | Encounter Summary ---
Author Organization [employer] ([place], [place], [place], [place]) Address [address] [place] [address] Care Team Providers Care Supervising Film Or Videotape Editor Name Role Phone Collette Rendon APRN Primary Care Provider [phone] Barry Bernal MD Unavailable [phone] Encounter Details Date Type Department Care Team (Late st Contact Info) Description 02/24/2020 Transcribed Document [facility] [place] Family Medicine [address] [place] [address] ProviderDulce Maria MD [address] [place], [place] [id number] Social History Tobacco Use Types Packs/Day Years [...] - Dulce Maria Duncan MD - 02/24/2020 12:02 PM CDT Pain Assessment Entered On: 02/24/2020 22:31 EDT Performed On: 02/24/2020 22:04 EDT by NUPUR HERNANDEZ RN Intervention Information: acetaminophen-HYDROcodone Performed by NUPUR HERNANDEZ RN on 02/24/2020 21:04:00 EDT acetaminophen-HYDROcodone,2Tab Oral,Pain (Severe 7-10) Pain Assessment Pain Assessment : Follow-up assessment Pain Scale Goal : 5 NUPUR HERNANDEZ RN - 02/24/2020 22:31 EDT documented in this encounter Plan of Treatment Upcoming Encounters Date Type Department Care Team (Late st Contact Info) Description 05/11/2025 1:30 PM EST Office Visit [facility] Pulmonology - [address] [place] [id number] Mark Love MD [address] [place] [address] documented as of this encounter Visit Diagnoses Not on filedocumented in this encounter Care Teams Supervising Film Or Videotape Editor Relationship Specialty Start Date End Date CarolyngeraldoCollette loweryLEIDY PCP - General Emergency Medicine 01/21/25 Barry Bernal MD [address] [place] [address] Referring Physician Family Medicine 01/21/25 documented as of this encounter
--- OUTSIDE RECORDS SUMMARY | 2025-02-14 09:00 | XMS_ITS | Encounter Summary ---
Author Organization Healthcare Address [address] [place] [address] Care Team Providers Care Professor Of Radiology Name Role Phone Dinh Ritchie MD Primary Care Provider [phone] Encounter Details Date Type Department Care Team (Latest Contact Info) Description 02/09/2025 Travel Social History Tobacco Use Types Packs/Day [...] Description 02/15/2025 1:00 PM EDT Office [facility] [address] [place] [address] 02/17/2025 1:00 PM EDT Office [facility] [address] [place] [address] 02/22/2025 1:00 PM EDT [facility] [address] [place] [address] 02/24/2025 1:00 PM EDT Office Visit [facility] [address] [place] [address] 03/01/2025 1:00 PM EDT Office Visit [facility] [address] [place] [address] 03/03/2025 1:00 PM EDT Office Visit [facility] [address] [place] [address] 08/11/2025 1:20 PM EDT Office Visit [facility] [place] [address] [place] [address] Allie Serna MD [address] [place] [address] documented as of this encounter Visit Diagnoses [...] documented as of this encounter Care Teams Professor Of Radiology Relationship Specialty Start Date End Date Dinh Ritchie MD [address] [place], [place] [id number] PCP - General 09/15/20 documented as of this encounter
--- OUTSIDE RECORDS SUMMARY | 2025-02-14 09:00 | XMS_ITS | Encounter Summary ---
Author Organization [employer] ([place], [place], [place], [place]) Address [address] [place] [address] Care Team Providers Care Lead Esthetician Name Role Phone Collette Rendon APRN Primary Care Provider [phone] Barry Bernal MD Unavailable [phone] Encounter Details Date Type Department Care Team (Late st Contact Info) Description 02/24/2020 Transcribed Document [facility] [place] [address] [place] [address] ProviderDulce Maria MD [address] [place] [address] Social History Tobacco Use Types [...] Duncan MD - 02/24/2020 10:50 AM CDT [facility] Main OR PACU Summary Primary Physician: LISA WOOD MD-SUR Finalized Date/Time: 02/24/20 14:25:25 Pt. Name: HAYES MAYS /Sex: 1950 Male Med Rec #: [id number] Physician: LISA WOOD MD-SUR Financial #: [id number] Pt. Type: I Room/Bed: ASA/4 Admit/Disch: 02/24/20 06:34:00 - Institution: [facility] Main OR PACU I Case Times Entry 1 In PACU I 02/24/20 12:36:00 Ready for PACU 02/24/20 13:36:00 Discharge Discharge from PACU 02/24/20 14:20:00 I Last Modified By: MATHEW CORTEZ 02/24/20 14:25:17 Finalized By: MATHEW CORTEZ Document Signatures Signed By: MATHEW CORTEZ 02/24/20 14:25 Electronically signed by Victorina [facility] Conversion Parcel Post Truck Driver Cerner at 08/21/2022 12:15 PM CDT documented in this encounter Plan of Treatment Upcoming Encounters Date Type Department Care Team (Late st Contact Info) Description 05/11/2025 1:30 PM EST Office Visit [facility] Pulmonology - [address] [place] [address] Mark Love MD [address] [place], [place] [id number] documented as of this encounter Visit Diagnoses Not on filedocumented in this encounter Care Teams Lead Esthetician Relationship Specialty Start Date End Date Collette RendonLEIDY PCP - General Emergency Medicine 01/21/25 Barry Bernal MD [address] [place] [address] Referring Physician Family Medicine 01/21/25 documented as of this encounter
--- OUTSIDE RECORDS SUMMARY | 2025-02-14 09:00 | XMS_ITS | Encounter Summary ---
Author Organization Healthcare Address [address] [place] [address] Care Team Providers Care Insurance Agency Sales Manager Name Role Phone Dinh Ritchie MD Primary Care Provider [phone] Encounter Details Date Type Department Care Team (Latest Contact Info) Description 02/01/2025 Travel Social History Tobacco Use Types Packs/Day [...] Description 02/15/2025 1:00 PM EDT Office Visit [facility] [address] [place] [address] 02/17/2025 1:00 PM EDT Office Visit [facility] [address] [place] [address] 02/22/2025 1:00 PM EDT Office Visit [facility] [address] [place] [address] 02/24/2025 1:00 PM EDT Office Visit [facility] [address] [place] [address] 03/01/2025 1:00 PM EDT Office Visit [facility] [address] [place] [address] 03/03/2025 1:00 PM EDT Office Visit [facility] Pul[facility] Re[facility] [address] [place] [address] 08/11/2025 1:20 PM EDT Office Visit [facility] [place] [address] [place] [address] Allie Serna MD [address] [place] [address] documented as of this encounter Visit Diagnoses [...] documented as of this encounter Care Teams Insurance Agency Sales Manager Relationship Specialty Start Date End Date Dinh Ritchie MD [address] [place], [place] [id number] PCP - General 09/15/20 documented as of this encounter
--- OUTSIDE RECORDS SUMMARY | 2025-02-14 09:00 | XMS_ITS | Encounter Summary ---
Author Organization Healthcare Address [address] [place] [address] Care Team Providers Care Lens Mold Setter Name Role Phone Dinh Ritchie MD Primary Care Provider [phone] Encounter Details Date Type Department Care Team (Latest Contact Info) Description 02/03/2025 Travel Social History Tobacco Use Types Packs/Day [...] Description 02/15/2025 1:00 PM EDT Office Visit [facility] [address] [place] [address] 02/17/2025 1:00 PM EDT Office [facility] [address] [place] [address] 02/22/2025 1:00 PM EDT Office [facility] [address] [place] [address] 02/24/2025 1:00 PM EDT Office Visit [facility] [address] [place] [address] 03/01/2025 1:00 PM EDT Office Visit [facility] [address] [place] [address] 03/03/2025 1:00 PM EDT Office Visit [facility] Pulmonary Rehab [address] [place] [address] 08/11/2025 1:20 PM EDT Office Visit [facility] [place] [address] [place] [address] Allie Serna MD [address] [place] [address] documented as of this encounter Visit Diagnoses [...] documented as of this encounter Care Teams Lens Mold Setter Relationship Specialty Start Date End Date Dinh Ritchie MD [address] [place], [place] [id number] PCP - General 09/15/20 documented as of this encounter
--- OUTSIDE RECORDS SUMMARY | 2025-02-14 09:00 | XMS_ITS | Encounter Summary ---
Author Organization [employer] ([place], [place], [place], [place]) Address [address] [place] [address] Care Team Providers Care Survey Compiler Name Role Phone Collette Rendon APRN Primary Care Provider [phone] Barry Bernal MD Unavailable [phone] Encounter Details Date Type Department Care Team (Late st Contact Info) Description 02/24/2020 Transcribed Document [facility] [place] [address] [place] [address] ProviderDulce Maria MD [address], [place] [id number] Social History Tobacco Use Types Packs/Day Years [...] Goal : 5 NUPUR HERNANDEZ RN - 02/25/2020 2:04 EDT documented in this encounter Plan of Treatment Upcoming Encounters Date Type Department Care Team (Late st Contact Info) Description 05/11/2025 1:30 PM EST Office Visit [facility] Pulmonology - [address] [place] [address] Mark Love MD [address] [place] [address] documented as of this encounter Visit Diagnoses Not on filedocumented in this encounter Care Teams Survey Compiler Relationship Specialty Start Date End Date CarolyngeraldoCollette loweryLEIDY PCP - General Emergency Medicine 01/21/25 Barry Bernal MD [address] [place] [address] Referring Physician Family Medicine 01/21/25 documented as of this encounter
--- OUTSIDE RECORDS SUMMARY | 2025-02-14 09:00 | XMS_ITS | Encounter Summary ---
Author Organization [employer] ([place], [place], [place], [place]) Address [address] [place] [address] Care Team Providers Care Paid Internship Name Role Phone Collette Rendon APRN Primary Care Provider [phone] Barry Bernal MD Unavailable [phone] Encounter Details Date Type Department Care Team (Late st Contact Info) Description 01/21/2020 Transcribed Document [facility] [place] Family Medicine [address] [place] [address] ProviderDulce Maria MD [address], [place] [id number] Social History Tobacco Use Types Packs/Day Years [...] - Dulce Maria Duncan MD - 01/21/2020 11:22 AM CDT [facility] Authorization Entered On: 01/21/2020 11:22 EDT Performed On: 01/21/2020 11:22 EDT by LINDSEY FERRARA RN Primary Insurance Authorization Authorization and Policy Numbers : Insurance 1 Health Plan: MEDICARE Policy Number: [id number] Authorization Number: Insurance 2 Health Plan: [facility] Policy Number: [id number] Authorization Number: NPR Insurance Primary Name : MEDICARE Policy Number: [id number] Authorized Service Begin Date-Primary : 01/20/2020 EDT Historical Authorization Comments-Primary : No Authorization Comments Found LINDSEY FERRARA, RN - 01/21/2020 11:22 EDT Electronically signed by Elisa Prajapati Conversion Stamps Or Coins Salesperson Cerner at 08/21/2022 11:54 AM CDT documented in this encounter Plan of Treatment Upcoming Encounters Date Type Department Care Team (Late st Contact Info) Description 05/11/2025 1:30 PM EST Office Visit [facility] Pulmonology - [address] [place] [address] Mark Love MD [address] [place] [address] documented as of this encounter Visit Diagnoses Not on filedocumented in this encounter Care Teams Paid Internship Relationship Specialty Start Date End Date Collette Rendon APRN PCP - General Emergency Medicine 01/21/25 Barry Bernal MD [address] [place] [address] Referring Physician Family Medicine 01/21/25 documented as of this encounter
--- OUTSIDE RECORDS SUMMARY | 2025-02-14 09:00 | XMS_ITS | Encounter Summary ---
Author Organization [employer] ([place], [place], [place], [place]) Address [address] [place] [address] Care Team Providers Care Senior Solutions Consultant Name Role Phone Collette Rendon APRN Primary Care Provider [phone] Barry Bernal MD Unavailable [phone] Encounter Details Date Type Department Care Team (Late st Contact Info) Description 02/24/2020 Transcribed Document [facility] [address] [place] [address] Armond Shell MD [address] [facility] [place] [address] Social History Tobacco Use Types Packs/Day Years [...] Diagnoses: None Author: DAMONRJACLYN APRN Chief Complaint PAD Review of Systems [...] All Problems 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 Patent foramen ovale -repaired / SNOMED CT 517507706 / Confirmed Lung nodule / SNOMED CT 5958674781 / Confirmed H/O: stroke 01/2019- word finding problems / SNOMED CT 1148939982 / Confirmed Cyst of left kidney / SNOMED CT 0474243282 / Confirmed COPD (chronic obstructive pulmonary disease) / SNOMED CT 96444951 / Confirmed At risk for sleep apnea / IMO [id number] / Confirmed Abdominal aortic aneurysm / SNOMED CT 625832861 / Confirmed, Active Problems (8) Abdominal aortic [...] 08:00) 97.2 (FEB 23 08:00) 98.4 (FEB 22 12:20) Periph HR 74 (FEB 23 08:00) 71 [...] EDT Height Source Measured Height Entry Format [place] Height/Length, BELIZEAN (ft) 5 ft Height/Length BELIZEAN 6 Inch CLINICALHEIGHT 167.64 cm [place] Body Weight 63 kg Weight Source Standing scale Weight Entry Format [place] Weight Ukrainian lb 134 lb Weight Ukrainian oz 0 oz CLINICALWEIGHT 60.91 kg Body [...] of motion, Normal strength. Integumentary: Warm, Dry, [place]. Neurologic: Alert, Oriented. Psychiatric: Cooperative, Appropriate mood [...] % 23.4 % Lymph # 1.54 x10(3)/uL [place] % 9.3 % HI [place] # 0.61 K/uL Eos % 2.6 % [...] Description 05/11/2025 1:30 PM EST Office Visit [facility] Pulmonology - [address] [place] [address] Mark Love MD [address] [place] [address] documented as of this encounter Visit Diagnoses Not on filedocumented in this encounter Care Teams Senior Solutions Consultant Relationship Specialty Start Date End Date CarolyngeraldoCollette loweryLEIDY PCP - General Emergency Medicine 01/21/25 Barry Bernal MD [address] [facility] [place] [address] Referring Physician Family Medicine 01/21/25 documented as of this encounter
--- OUTSIDE RECORDS SUMMARY | 2025-02-14 09:00 | XMS_ITS | Encounter Summary ---
Author Organization [employer] ([place], [place], [place], [place]) Address [address] [place] [address] Care Team Providers Care Tandem Mill Roller Name Role Phone Collette Rendon APRN Primary Care Provider [phone] Barry Bernal MD Unavailable [phone] Encounter Details Date Type Department Care Team (Late st Contact Info) Description 01/21/2020 Transcribed Document [facility] [place] [address] [place] [address] ProviderDulce Maria MD [address] [place] [address] Social History Tobacco Use Types [...] Maria ProviderMD - 01/21/2020 10:[address] [facility] OT Charges Entered On: 01/21/2020 13:22 EDT Performed On: 01/21/2020 10:06 EDT by JOSE RAMIREZ OTR/L [place] OT Charges Screen For Campground Cleaning Attendant : 1 JOSE RAMIREZ OTR/L - 01/21/2020 13:21 EDT Electronically signed by Brant Prajapati [facility]version [facility] Psychiatrist Dmitry at 08/21/2022 11:54 AM CDT documented in this encounter Plan of Treatment Upcoming Encounters Date Type Department Care Team (Late st Contact Info) Description 05/11/2025 1:30 PM EST Office Visit [facility] Pulmonology - [address] [place] [address] Mark Love MD [address] [place] [address] documented as of this encounter Visit Diagnoses Not on filedocumented in this encounter Care Teams Tandem Mill Roller Relationship Specialty Start Date End Date Collette Rendon APRN PCP - General Emergency Medicine 01/21/25 Barry Bernal MD [address] [facility] [place] [address] Referring Physician Family Medicine 01/21/25 documented as of this encounter
--- OUTSIDE RECORDS SUMMARY | 2025-02-14 09:00 | XMS_ITS | Encounter Summary ---
Author Organization [employer] ([place], [place], [place], [place]) Address [address] [place] [address] Care Team Providers Care Steam Pan Sponger Name Role Phone Unavailable Primary Care Provider Unavailabl e Reason for Visit * Reason Onset Date Comments Medication Management 12/16/2024 Encounter Details Date Type Department Care Team (Late st Contact Info) Description 12/16/2024 Telephone [facility] Pulmonology - [address] [place] [address] Jerel Mcknight Medication Management Social History Tobacco Use Types Packs/Day Years [...] Date Haider rded Speak language other than [place] at home Not on file 11/03/2023 Want [...] as of this encounter Miscellaneous Notes * Telephone Encounter - Jerel Mcknight - 12/16/2024 1:54 PM EDT Per recent testing, and Dr. Love, patient qualifies for 2 liters of Oxygen via nasal cannula 25/11. I spoke with the patient and he is not interested in having O2 at this time. I explained that I will upload his records into [employer] and request Pulmonary rehab appointment. Patient verbalized understanding, and will call with questions or concerns. documented in this encounter Plan of Treatment Upcoming Encounters Date Type Department Care Team (Late st Contact Info) Description 05/11/2025 1:30 PM EST Office Visit [facility] Pulmonology - [address] [place] [address] Mark Love MD [address] [place] [address] documented as of this encounter Visit Diagnoses Not on filedocumented in this encounter
--- OUTSIDE RECORDS SUMMARY | 2025-02-14 09:00 | XMS_ITS | Encounter Summary ---
Author Organization [employer] ([place], [place], [place], [place]) Address [address] [place] [address] Care Team Providers Care Drencher Name Role Phone Collette Rendon APRN Primary Care Provider [phone] Barry Bernal MD Unavailable [phone] Encounter Details Date Type Department Care Team (Late st Contact Info) Description 01/21/2020 Transcribed Document [facility] [address] [place] [address] Lisa Wood MD [address] [facility] [address] Social History Tobacco Use Types Packs/Day Years Used Date Smoking Tobacco: Never Assessed Sex and Gender Information Value Date Recorded Sex Assigned at Male 10/30/2021 8:44 PM CDT Legal Sex Male 8:44 PM CDT Gender Identity Male 10/30/2021 8:44 PM CDT Sexual Orientation Not on file documented as of this encounter Miscellaneous Notes * Cerner Conversion Note - Lisa Wood MD - 01/21/2020 10:02 AM EDT Patient: [...] Daily, Routine, Start 01/20/20 12:33:00 EDT (LISA WOOD) Enoxaparin 40 mg, SubCutaneous, Inj, Daily, Routine, Start 01/21/20 9:00:00 EDT (LISA WOOD) Sequential Compression Device Start: 01/20/20 12:31:00 EDT, Bilateral, While in Bed, to nonoperative leg ONLY, Continuous Order (LISA WOOD) Assessment/Plan Expanding infrarenal abdominal aortic aneurysm, greater than 5.5 cm. - 01/19: 1. Right femoral percutaneous access, large-bore 14-Irish sheath. 2. Left femoral arterial exposure for [...] Description 05/11/2025 1:30 PM EST Office Visit [facility] Pulmonology - [address] [place] [address] Mark Love MD [address] [place] [address] documented as of this encounter Visit Diagnoses Not on filedocumented in this encounter Care Teams Drencher Relationship Specialty Start Date End Date Collette Rendon APRN PCP - General Emergency Medicine 01/21/25 Barry Bernal MD [address] [place] [address] Referring Physician Family Medicine 01/21/25 documented as of this encounter
--- OUTSIDE RECORDS SUMMARY | 2025-02-14 09:00 | XMS_ITS | Encounter Summary ---
Author Organization [employer] ([place], [place], [place], [place]) Address [address] [place] [address] Care Team Providers Care Treatment Coordinator Name Role Phone Collette Rendon APRN Primary Care Provider [phone] Barry Bernal MD Unavailable [phone] Encounter Details Date Type Department Care Team (Late st Contact Info) Description 02/24/2020 Transcribed Document [facility] [address] [place] [address] ProviderDulce Maria MD [address] [place] [address] Social History Tobacco Use Types [...] Note - Dulce Maria ProviderMD - 02/24/2020 10:50 AM CDT [facility] Main OR IntraOp Summary Primary Physician: LISA WOOD MD-SUR Finalized Date/Time: 02/26/20 17:35:06 Pt. Name: HAYES MARTINEZ /Sex: 1950 Male Med Rec #: [id number] Physician: LISA WOOD MD-SUR Financial #: [id number] Pt. Type: I Room/Bed: [facility]/ Admit/Disch: 02/24/20 06:34:00 - 02/25/20 14:33:00 Institution: [facility] IntraOp Case Attendance Entry 1 Entry 2 Entry 3 Case Attendee LISA WOOD MD-SUR BOWEN, JON B, MD-ANS OTHER, ATTENDEE #3 Role Performed Surgeon/Proceduralist, Anesthesiologist of INSTRUCTIONAL SUPPORT ASSISTANT/Nurse Primary Substance Abuse Counselor First Record Time In 02/24/20 10:24:00 02/24/20 [...] [facility]OURT [facility] OTHER, ATTENDEE #2 Role Performed INSTRUCTIONAL SUPPORT ASSISTANT/Nurse Primary Substance Abuse Counselor Scrub, First Student Time In 02/24/20 10:24:00 02/24/20 10:24:00 02/24/20 10:24:00 Time Out 02/24/20 12:31:00 02/24/20 12:08:00 02/24/20 12:31:00 Procedure Femoral Artery Femoral Artery Femoral Artery Endarterectomy(Left) Endarterectomy(Left) Endarterectomy(Left) Other Attendee severiano 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 injection molding machine operator ST DEONNA STUDENT student Superficial Wound Closed By: Last Modified By: Livia Acosta RN Proffitt, Debbie, RN Proffitt, Debbie, RN 02/24/20 10:35:08 02/24/20 12:08:36 02/24/20 10:35:08 Entry 7 Entry 8 Entry 9 Case Attendee Livia Acosta RN RESULTAY, JOSEFINA, RN PHELPS, KRISTI, PA Role Performed Theatrical Trouper, First Theatrical Trouper, Second Physician financial planning assistant Time In 02/24/20 10:24:00 02/24/20 10:24:00 02/24/20 10:34:00 Time Out 02/24/20 11:04:00 02/24/20 11:49:00 02/24/20 12:31:00 Procedure Femoral Artery Femoral Artery Femoral Artery Endarterectomy(Left) Endarterectomy(Left) Endarterectomy(Left) Other Attendee Superficial Wound Closed By: Last Modified By: Livia Acosta, Livia Randhawa, Livia Randhawa, DINA 02/24/20 11:54:00 02/24/20 11:54:00 02/24/20 12:30:59 Entry 10 Entry 11 Case Attendee Livia Acosta, JOSEMANUEL GALLO CST Role Performed Theatrical Trouper, First Scrub, First Time In 02/24/20 11:45:00 02/24/20 12:07:00 Time Out 02/24/20 12:31:00 02/24/20 12:31:00 Procedure Femoral Artery Femoral Artery Endarterectomy(Left) Endarterectomy(Left) Other Attendee Superficial Wound Closed By: Last Modified By: Livia Acosta, Livia Randhawa, DINA 02/24/20 12:30:59 02/24/20 12:30:[address] [facility] IntraOp Case Attendance Audit 02/24/20 12:30:59 Boiler Shop Supervisor: PROFITDE Modifier: PROFITDE 1 <+> Time Out [...] <*> Procedure Femoral Artery Endarterectomy(Left) 02/24/20 12:08:36 Boiler Shop Supervisor: PROFITDE Modifier: PROFITDE 5 <+> Time Out 5 <*> Procedure Femoral Artery Endarterectomy(Left) <+> 11 Case Attendee <+> 11 Role Performed <+> 11 Time In <+> 11 Procedure 02/24/20 11:54:00 Boiler Shop Supervisor: PROFITDE Modifier: PROFITDE 7 <+> Time Out 7 <*> Procedure Femoral Artery Endarterectomy(Left) 8 <+> Time Out 8 <*> Procedure Femoral Artery Endarterectomy(Left) <+> 10 Case Attendee <+> 10 Role Performed <+> 10 Time In <+> 10 Procedure 02/24/20 11:00:23 Boiler Shop Supervisor: PROFITDE Modifier: PROFITDE 3 <*> Case Attendee SOCORRO SANTIZO CRNA 3 <*> Procedure Femoral Artery Endarterectomy(Left) 3 <+> Other Attendee 02/24/20 10:49:14 Boiler Shop Supervisor: PROFITDE Modifier: PROFITDE <+> 1 Procedure 2 <*> Procedure Femoral Artery Endarterectomy(Left) 3 <*> Procedure Femoral Artery Endarterectomy(Left) 4 <*> Procedure Femoral Artery Endarterectomy(Left) 5 <*> Procedure Femoral Artery Endarterectomy(Left) 6 <*> Procedure Femoral Artery Endarterectomy(Left) 7 <*> Procedure Femoral Artery Endarterectomy(Left) 8 <*> Procedure Femoral Artery Endarterectomy(Left) 9 <*> Procedure Femoral Artery Endarterectomy(Left) 02/24/20 10:47:33 Boiler Shop Supervisor: PROFITDE Modifier: PROFITDE 9 <*> Procedure Femoral Artery Endarterectomy(Left) [facility] IntraOp Case Times Entry 1 Patient In Room Time 02/24/20 10:24:00 Out Room Time 02/24/20 12:31:00 Anesthesia Start Time 02/24/20 10:24:00 Stop Time 02/24/20 12:31:00 Anesthesia Ready 02/24/20 10:24:00 Surgery / Procedure Times Start Time 02/24/20 10:50:00 Stop Time 02/24/20 12:20:00 Last Modified By: Livia Acosta RN 02/24/20 10:32:[address] [facility] IntraOp Case Times Audit 02/24/20 12:30:56 Boiler Shop Supervisor: PROFITDE Modifier: PROFITDE <+> 1 Out Room Time <+> 1 Stop Time 02/24/20 12:28:39 Boiler Shop Supervisor: PROFITDE Modifier: PROFITDE <+> 1 Stop Time 02/24/20 10:50:44 Boiler Shop Supervisor: PROFITDE Modifier: PROFITDE <+> 1 Start Time [facility] IntraOp Cautery Entry 1 ESU Identification Cautery Type Monopolar ESU ID Number [id number] ID Type Hospital Number Cautery Settings Cut Setting 30 Coag Setting 30 ESU Grounding Pad Ground Pad Type Adult Grounding Pad Site Right Flank Grounding Pad HÉCTOR GARCIA RN Applied By Grounding Pad Site Warm, Dry, Intact Skin Condition Before Cautery Grounding Pad Site Unchanged Skin Condition After Cautery Last Modified By: Livia Acosta RN 02/24/20 10:49:[address] [facility] IntraOp Communication Entry 1 Entry 2 Communication To Family/Significant other Family/Significant other Comment INCISION CLOSING Communication By HÉCTOR GARCIA RN Proffitt, Debbie, RN Date and Time 02/24/20 10:50:00 02/24/20 12:05:00 Last Modified By: Livia Acosta RN Proffitt, Debbie, RN 02/24/20 10:50:41 02/24/20 12:07:[address] [facility] IntraOp Communication Audit 02/24/20 12:07:27 Boiler Shop Supervisor: PROFITDE Modifier: PROFITDE <+> 2 Communication By <+> 2 Date and Time <+> 2 Communication To <+> [address] [facility] IntraOp Counts Verification Entry 1 Procedure Femoral Artery Endarterectomy(Left) Count Info Count Type Sponge, Sharps, Miscellaneous Counts Verification Baseline/pre-procedure Sequence Count Results Not Applicable Counts Performed By Count Performed By ZEYNEP BETANCOURT ST (Scrub) Count Performed By HÉCTOR GARCIA RN (RN) Last Modified By: Livia Acosta RN 02/24/20 10:45:[address] [facility] IntraOp Counts Final Entry 1 Procedure Femoral Artery Endarterectomy(Left) Final Count Info Count Type Sponge, Sharps, Miscellaneous Counts Verification Skin Closure/end of Sequence procedure Count Results Correct, surgeon notified Counts Performed By Count Performed By ZEYNEP BETANCOURT ST (Scrub) Count Performed By Livia Acosta RN (RN) Last Modified By: Livia Acosta RN 02/24/20 12:07:[address] [facility] IntraOp Cultures and Spec Summary Entry 1 Cultrures and Specimens Specimen Ordered: Yes Test(s) Routine/Path-Lab Requested/Final Disposition Last Modified By: Livia Acosta RN 02/24/20 10:51:[address] [facility] IntraOp Departure from OR Entry 1 Integumentary Assessment Integumentary WDL with patient Assessment WDL specific variances Patient's Normal PREOP PLUS OPSITE Integumentary Variance(s) Transfer/Handoff Transfer to PACU Phase I Handoff Method Bedside/Face to face Handoff Reported to Rohan Thopre RN Post-op Transport Bed (including Via specialty) Patient Transport OTHER, ATTENDEE #1, Accompanied by WILMAN DEVRIES PA Last Modified By: Livia Acosta RN 02/24/20 10:56:[address] [facility] IntraOp Dressing and Packing Entry 1 Type Dressing Location GROIN Wound Dressing Item Skin Closure Glue Applied By WILMAN DEVRIES PA Last Modified By: Livia Acosta RN 02/24/20 12:31:[address] [facility] IntraOp Fire Risk Assessment Entry 1 Fire [...] Modified By: Livia Acosta RN 02/24/20 10:54:[address] [facility] IntraOp General Case Safety Sitter 1 Case Information OR OR [address] [facility] Case Level 1 Room Verified Yes Wound Class I - Clean Specialty SN General Anesthesia Type General ASA Class 3 Diagnosis Preop Diagnosis PSEUDOANEURYSM LEFT FEMORAL ARTERY Postop Same As Preop No Postop Diagnosis SEE POSTOP NOTES Last Modified By: Livia Acosta RN 02/24/20 10:53:[address] [facility] IntraOp Implant Log Entry 1 Type Tissue Implant (Biologic) Implant Log Implant [facility] Identification [id number] Description Implant Quantity 1 Implant Site LEFT FEMORAL Implant [id number] Identification Lot Number Implant [facility] Identification Cement Finisher Helper Name: Implant [id number] Identification Catalog Number Implant Has an Yes Expiration Date Implant Expiration 07/28/25 Date Tissue Implant Graft Prep Per Yes Cement Finisher Helper Instructions: Preparation RINSED IN [employer]INE Materials, Other Preparation [id number] Materials, Other Lot Number Preparation 06/05/22 Materials, Other Expiration Date Tissue ASIA, ZEYNEP, ST Prepared/Processed By Cement Finisher Helper Yes Paperwork Completed Last Modified By: Livia Acosta RN 02/24/20 11:21:[address] [facility] IntraOp Intraoperative Assessment Entry 1 Handoff Report [...] Modified By: Livia Acosta RN 02/24/20 10:51:[address] [facility] IntraOp Intraoperative Equipment Entry 1 Type Monitoring Equipment Intraop Monitoring Electrocardiogram Five lead placement (ECG) Electrode Placement Blood Pressure Arterial Pressure Line Source Blood Pressure Arterial Location Pulse Oximeter Hand, right Probe Site Antiembolic Devices Scopes Photo/Video Documentation Photo No Video No Last Modified By: Livia Acosta RN 02/24/20 10:54:[address] [facility] IntraOp Intraoperative Equipment Audit 02/24/20 11:15:22 Boiler Shop Supervisor: DAJA Modifier: PROFITDE 1 <+> Photo 1 <+> Video 1 <*> Type Equipment [facility] IntraOp Medication Admin Entry 1 Entry 2 Medication/Irrigant COMBO heparinized NS HEMOSTAT SURGICEL SNOW 1000units/100ml - [id number] Combo Med List Time Administered Route of FLUSH TOPICAL Administration Dose Dose 1000 1 Unit of Measure units pkt Volume Administered By LISA WOOD MD-SUR ABEDI, NICK NIMA, MD-SUR Procedure Irrigation Irrigant Volume In Irrigant Volume Out Last Modified By: Livia Acosta RN Proffitt, Debbie, RN 02/24/20 11:16:16 02/24/20 11:16:[address] [facility] IntraOp Patient Positioning Entry 1 Procedure Femoral [...] Modified By: Livia Acosta RN 02/24/20 10:59:[address] [facility] IntraOp Patient Positioning Audit 02/24/20 11:17:33 Boiler Shop Supervisor: PROFITDE Modifier: PROFITDE 1 <*> Procedure Femoral Artery Endarterectomy(Left) 1 <*> Positioning Devices Head Rest, Pad, Arm, Safety Strap, Chest, Pad, Elbow, Pad, Elbow, Pad, Heel, Arm Board 02/24/20 10:59:54 Boiler Shop Supervisor: PROFITDE Modifier: PROFITDE 1 <*> Procedure Femoral Artery Endarterectomy(Left) 1 <*> Positioned By Livia Acosta RN [facility] IntraOp Sign In Entry 1 Patient, Site, [...] Modified By: Livia Acosta RN 02/24/20 10:54:[address] [facility] IntraOp Sign In Audit 02/24/20 11:17:51 Boiler Shop Supervisor: PROFITDE Modifier: PROFITDE 1 <*> Allergies Yes 1 <*> Difficult Airway/Aspiration No Intervention Equipment Available 02/24/20 10:54:42 Boiler Shop Supervisor: PROFITDE Modifier: PROFITDE 1 <*> Difficult Airway/Aspiration Risk Yes 1 <*> Difficult Airway/Aspiration Yes Intervention Equipment Available 1 <+> Blood Identifiers Verified Per Policy [facility] IntraOp Sign Out Entry 1 RN Confirmation [...] Modified By: Livia Acosta RN 02/24/20 12:29:[address] [facility] IntraOp Sign Out Audit 02/24/20 12:31:10 Boiler Shop Supervisor: PROFITDE Modifier: PROFITDE <+> 1 RN Sign Out Signature Date/Time [facility] IntraOp Skin Prep Entry 1 Procedure Femoral [...] Modified By: Livia Acosta RN 02/24/20 10:55:[address] [facility] IntraOp Skin Prep Audit 02/24/20 11:19:14 Boiler Shop Supervisor: PROFITDE Modifier: PROFITDE 1 <+> Methods 1 <+> Hair Removal Site 1 <*> Procedure Femoral Artery Endarterectomy(Left) 1 <+> Hair Removal By [facility] IntraOp Surgical Procedures Entry 1 Procedure Femoral Artery Endarterectomy Modifiers Left Additional LEFT COMMON FEMORAL Procedure ENDARTERECTOMY AND LEFT Description EXTERNAL ILIAC PSEUDO ANEURYSM REPAIR Primary Procedure Yes Primary Surgeon LISA WOOD MD-SANIA Start 02/24/20 10:50:00 Stop 02/24/20 12:20:00 Anesthesia Type General Specialty SN General Wound Class I - Clean Last Modified By: Livia Acosta RN 02/24/20 12:09:[address] [facility] IntraOp Surgical Procedures Audit 02/24/20 12:31:03 Boiler Shop Supervisor: PROFITDE Modifier: PROFITDE <+> 1 Stop 02/24/20 12:09:38 Boiler Shop Supervisor: PROFITDE Modifier: PROFITDE 1 <*> Procedure Femoral Artery Endarterectomy 1 <*> Additional Procedure Description (LT COMMON FEMORAL ENDARTERECTOMY AND PSEUDO ANEURYSM REPAIR) 02/24/20 11:17:35 Boiler Shop Supervisor: PROFITDE Modifier: PROFITDE <+> [address] [facility] IntraOP Time Out Entry 1 Procedure to [...] Unfinalizing Freetext Reason for Unfinalizing 02/26/20 17:32 WATTSDR Correct Billing Electronically signed by [facility] Conversion Patient Admitting Clerk Cerner at 08/21/2022 11:53 AM CDT documented in this encounter Plan of Treatment Upcoming Encounters Date Type Department Care Team (Late st Contact Info) Description 05/11/2025 1:30 PM EST Office Visit [facility] Pulmonology - [address] [place] [id number] Mark Love MD [address] [place] [address] documented as of this encounter Visit Diagnoses Not on filedocumented in this encounter Care Teams Treatment Coordinator Relationship Specialty Start Date End Date Collette Rendon, BOAT DECKHAND PCP - General Emergency Medicine 01/21/25 Barry Bernal MD [address] [place] [address] Referring Physician Family Medicine 01/21/25 documented as of this encounter
--- OUTSIDE RECORDS SUMMARY | 2025-02-14 09:00 | XMS_ITS | Encounter Summary ---
Author Organization [employer] ([place], [place], [place], [place]) Address [address] [place] [address] Care Team Providers Care Aging Department Supervisor Name Role Phone Collette Rendon APRN Primary Care Provider [phone] Barry Bernal MD Unavailable [phone] Encounter Details Date Type Department Care Team (Late st Contact Info) Description 02/24/2020 Transcribed Document [facility] Radiology [address] [place] [address] Armond Shell MD [address] [place] [address] Social History Tobacco Use Types Packs/Day Years [...] vein. The SFA was in a virgin alturas tissue plane. The pseudoaneurysm was stuck to [...] stable condition. There were no immediate complications. /[id number] Armond Shell MD NNA/AQ / NNA / MODL /[id number] documented in this encounter Plan of Treatment Upcoming Encounters Date Type Department Care Team (Late st Contact Info) Description 05/11/2025 1:30 PM EST Office Visit [facility] Pulmonology - [address] [place] [address] Mark Love MD [address] [place] [address] documented as of this encounter Visit Diagnoses Not on filedocumented in this encounter Care Teams Aging Department Supervisor Relationship Specialty Start Date End Date Collette Rendon APRN PCP - General Emergency Medicine 01/21/25 Barry Bernal MD [facility] [address] [facility] [place] [address] Referring Physician Family Medicine 01/21/25 documented as of this encounter
--- OUTSIDE RECORDS SUMMARY | 2025-02-14 09:00 | XMS_ITS | Encounter Summary ---
Author Organization [employer] ([place], [place], [place], [place]) Address [address] [place] [address] Care Team Providers Care Guide Travel Name Role Phone Collette Rendon APRN Primary Care Provider [phone] Barry Bernal MD Unavailable [phone] Encounter Details Date Type Department Care Team (Late st Contact Info) Description 02/24/2020 Transcribed Document [facility] Family Medicine [address] [place] [address] ProviderDulce Maria MD [address] [place] [address] Social History Tobacco Use Types [...] Note - Dulce Maria ProviderMD - 02/24/2020 5:00 PM CDT Chart Check - Review Order Profile Entered On: 02/24/2020 18:07 EDT Performed On: 02/24/2020 17:00 EDT by CODIE PINEDA RN Chart Check Powerplans Initiated/Discontinued as Appropriate : Yes All Active Orders Reviewed : Yes CODIE PINEDA RN - 02/24/2020 18:06 EDT Electronically signed by [facility] Conversion Wrap Checker Cerner at 08/21/2022 11:57 AM CDT documented in this encounter Plan of Treatment Upcoming Encounters Date Type Department Care Team (Late st Contact Info) Description 05/11/2025 1:30 PM EST Office Visit [facility] Pulmonology - [address] [place] [address] Mark Love MD [address] [place] [address] documented as of this encounter Visit Diagnoses Not on filedocumented in this encounter Care Teams Guide Travel Relationship Specialty Start Date End Date Collette RendonLEIDY PCP - General Emergency Medicine 01/21/25 Barry Bernal MD [address] [facility] [place] [address] Referring Physician Family Medicine 01/21/25 documented as of this encounter
--- OUTSIDE RECORDS SUMMARY | 2025-02-14 09:00 | XMS_ITS | Encounter Summary ---
Author Organization [employer] ([place], [place], [place], [place]) Address [address] [place] [address] Care Team Providers Care Ad Terminal Makeup Operator Name Role Phone Collette Rendon APRN Primary Care Provider [phone] Barry Bernal MD Unavailable [phone] Encounter Details Date Type Department Care Team (Latest Contact Info) Description 01/21/2025 Travel Social History Tobacco Use Types Packs/Day [...] Description 05/11/2025 1:30 PM EST Office Visit [facility] Pulmonology - [address] [place] [address] Mark Love MD [address] [place] [address] documented as of this encounter Visit Diagnoses Not on filedocumented in this encounter Care Teams Ad Terminal Makeup Operator Relationship Specialty Start Date End Date CarolyngeraldoCollette loweryLEIDY PCP - General Emergency Medicine 01/21/25 Barry Bernal MD [address] [place] [address] Referring Physician Family Medicine 01/21/25 documented as of this encounter
--- NOTE | 2025-02-14 09:05 | XR_ITS ---
FINAL REPORT CLINICAL HISTORY: sob FINDINGS: A portable view of the chest is obtained. There is no prior exam for comparison. Cardiac and mediastinal silhouettes are normal. Underwent imaging that is noted. Left basilar opacities are concerning for pneumonia. There is no pleural effusion or pneumothorax. IMPRESSION: Left basilar opacities concerning for pneumonia. Reviewed, Interpreted and Dictated by Tori Nixon MD Transcribed by Haleigh Craig Authenticated and [facility]
--- NOTE | 2025-02-14 09:05 | CT_ITS ---
FINAL REPORT TECHNIQUE: Axial imaging of the chest is obtained after the administration of contrast. 3-D MIP reformatted images were also obtained and reviewed per PE protocol. CLINICAL HISTORY: tachy, cp COMPARISON: CT low-dose 11/11/2024 FINDINGS: The pulmonary arteries are well filled. There is no evidence of pulmonary embolus. There is no aortic dissection. Heart size is normal. No axillary or mediastinal lymphadenopathy. There are mildly prominent bilateral hilar lymph nodes. Airspace disease in the lingula and anterior left lower lobe is consistent with pneumonia. Patchy retro nodular opacities in other portions of the left lung also are consistent with pneumonia. There is a stable spiculated nodule in the right upper lobe measuring 7 mm. The lungs are otherwise clear. There is underlying emphysema. There is no pleural or pericardial effusion. Limited evaluation of the upper abdomen demonstrates small hypodense liver lesions favored to represent cysts. There is an incompletely imaged left renal cyst and an incompletely imaged aortic endoluminal graft.. No acute osseous abnormality. IMPRESSION: No evidence of pulmonary embolism or aortic dissection. New left lung pneumonia. Consider three-month follow-up chest CT. Stable right upper lobe nodule. Reviewed, Interpreted and Dictated by Tori Nixon MD Transcribed by Haleigh Craig Authenticated and [facility]
--- NOTE | 2025-02-14 09:05 | PC.NURSE ---
RT notified to place pt on BIPAP per MD.
[2025-02-14 09:13] LABS: Hematocrit 45.4 % (42.0-52.0); Hemoglobin 14.9 g/dL (14.1-18.0); Immature Granulocytes % 0.3 %; Mean Corpuscular HGB Conc 32.8 g/dL (31.8-35.4); Mean Corpuscular Hemoglobin 30.1 pg (27.0-31.2); Mean Corpuscular Volume 91.7 fl (80-94); Nucleated Red Blood Cells % 0 %; Platelet Count 309 K/mm3 (142-424); Red Blood Count 4.95 M/mm3 (4.60-6.20); Red Cell Distribution Width-SD 45.3 fL; White Blood Count 9.2 K/mm3 (4.8-10.8)
[2025-02-14 09:16] LABS: VBG HCO3 33.9 mmol/L (23-30); VBG PCO2 64.8 mmol/L (35-51); VBG PH 7.34 mmol/L (7.31-7.41); VBG PO2 28.5 mmol/L (28-40)
[2025-02-14 09:18] LABS: Lactate Venous 3.2 mmol/L (0.4-2.0)
[2025-02-14] MEDS: IPRATROPIUM/ALBUTEROL 3 ML NEB 9 ML IH (09:18)
[2025-02-14 09:20] LABS: INR 1.03 (0.9-1.1); Prothrombin Time 11.4 seconds (10.1-12.5)
[2025-02-14 09:29] LABS: Coronavirus 19, PCR Not Detected (NotDetected); Influenza A, PCR Not Detected (NotDetected); Influenza B, PCR Not Detected (NotDetected)
[2025-02-14] MEDS: METHYLPREDNISOLONE SOD SUCC 125MG VIAL 125 MG IV (09:32)
[2025-02-14] MEDS: 0.9 % SODIUM CHLORIDE 1000ML 1,000 ML 999 ML IV (09:32)
[2025-02-14 09:34] LABS: Albumin Level 4.0 g/dl (3.5-5.0); Chloride 95 mmol/L (98-107); Potassium 4.1 mmoL/L (3.5-5.1); Sodium 141 mmol/L (136-145)
[2025-02-14 09:36] LABS: Alanine Aminotransferase 28 U/L (12-78); Alkaline Phosphatase 108 U/L (38-126); Anion Gap 13.1 mEq/L (5-15); Aspartate Amino Transferase 40 U/L (17-59); Bilirubin,Total 0.6 mg/dl (0.2-1.3); Blood Urea Nitrogen 27 mg/dl (9-20); Carbon Dioxide 37 mmol/L (22.0-30.0); Creatinine Clearance Estimated 46 mL/min (50-200); Creatinine,Serum 0.60 mg/dl (0.66-1.25); Estimated Glomerular Filt Rate 132 ml/min (>60); GFR (African American) 160 ML/MIN (>60)
[2025-02-14 09:37] LABS: Albumin/Globulin Ratio 1.1 (1.1-1.8); Calcium 9.0 mg/dl (8.4-10.2); Globulin 3.6 g/dL (1.3-3.2); Glucose 122 mg/dl (74-100); Magnesium 1.8 mg/dl (1.6-2.3); Total Protein,Serum 7.6 g/dl (6.3-8.2)
[2025-02-14] MEDS: MAGNESIUM SULFATE IN WATER 2 GM/50 ML PIGGYBACK IV (09:46)
[2025-02-14 09:48] LABS: NT Pro Brain Natriuretic Pep. 273 pg/mL (0-125)
[2025-02-14 09:53] LABS: Procalcitonin 0.077 ng/mL (0.0-2.0)
--- NOTE | 2025-02-14 09:57 | PC.NURSE ---
called respiratory per to switch patient to vapotherm
[2025-02-14 10:04] LABS: Troponin I < 0.01 ng/ml (0.00-0.034)
--- NOTE | 2025-02-14 10:04 | PC.NURSE ---
Dr. Oreilly speaking with urology.
[2025-02-14 10:06] LABS: Thyroid Stimulating Hormone 0.97 uIU/mL (0.465-4.68)
--- NOTE | 2025-02-14 10:13 | ECG_ITS ---
APPROVED REPORT Exam: Resting ECG HR:100 bpm ECG Measurements Heart Rate 100 AXES AZ 156 P 97 QRSd 88 QRS 82 QT 346 T 83 QTc 403 Conclusion SINUS TACHYCARDIA WITH OCCASIONAL VENTRICULAR PREMATURE COMPLEXES VOLTAGE CRITERIA FOR LVH [MEETS CRITERIA IN ONE OF: R(aVL), S(V1), R(V5), R(V5/V6)+S(V1)] ABNORMAL ECG UNCONFIRMED REPORT Electronically signed by : Manuel Oreilly, 02/14/2025 15:48:54
[2025-02-14] MEDS: 0.9 % SODIUM CHLORIDE 50 ML VIAL 40 ML IV (10:36)
[2025-02-14] MEDS: SODIUM CHLORIDE 0.9% 10ML SYR (RAD ONLY) 10 ML IV (10:36)
[2025-02-14] MEDS: IOPAMIDOL-370 (76%);100ML BOTTLE 70 ML IV (10:36)
[2025-02-14 10:42] LABS: Hepatitis C Ab Qual. W/ RFX NEGATIVE (Negative)
[2025-02-14] MEDS: 0.9 % SODIUM CHLORIDE 500 ML 999 ML IV (11:13)
--- NOTE | 2025-02-14 11:25 | PC.NURSE ---
I notified HS of the need for a bed to admit to the hospitalist for acute hypoxic respiratory failure with new onset oxygen requirement.
--- NOTE | 2025-02-14 11:42 | PC.NURSE ---
Called report to DINA Villalta
--- NOTE | 2025-02-14 11:54 | PC.NURSE ---
arrived by w/c from ED
[2025-02-14] MEDS: AZITHROMYCIN 500 MG in 0.9 % SODIUM CHLORIDE 250 ML 250 MG IV (12:37)
--- NOTE | 2025-02-14 13:02 | P.HP_ITS ---
<Statement entered by Jewel Gonzalez MD - 02/14/25 16:40> Rounded on patient after nurse practitioner. Personally examined and interviewed patient. Agree with exam findings and care plan as documented. PSI port score 93, class IV risk. Necessitating inpatient admission. History of Present Illness *Admission Date: 02/14/25 *Reason for visit:: short of breath *History of present illness: Mr. Mays is a 74-year-old male who presented to the emergency department with complaints of shortness of breath. He has a primary medical history of COPD, TIA, paroxysmal atrial fibrillation, and PFO repair. He complains of shortness of breath over the last several weeks, worse this morning. He states that he could not catch his breath and could not walk across the room so he called EMS. He stated in the ED that he was feeling lightheaded, but denied chest pain, ab dominal pain, nausea, vomiting, diarrhea. He does state that he has been running fevers at home, unsure of temperature. Patient was found to be hypoxic upon arrival, O2 saturation in the 70s per EMS. Patient was placed on nonrebreather and O2 saturation became greater than 90%. Initially was put on BiPAP due to concerns for hypercapnic respiratory failure, VBG was assuring and patient was transition to nasal cannula. He was also given DuoNebs, Solu-Medrol, magnesium, and azithromycin and Rocephin IV. Patient's O2 improved and was tolerating 3 L nasal cannula on admission. [facility] Disclaimer: The information contained in this section may have been updated after the patient was seen, as this information can be updated by other users. Medical History (Updated 02/14/25 @ 14:12 by Katlyn Nair APRN) Implantable loop recorder present CVA (cerebral vascular accident) Renal cyst Kidney stone Afib HLD (hyperlipidemia) COPD (chronic obstructive pulmonary disease) Surgical History (Updated 02/14/25 @ 12:36 by Alondra Mancia RN) History of AAA (abdominal aortic aneurysm) repair History of surgical closure of patent foramen ovale (PFO) Social History (Updated 02/14/25 @ 12:37 by Alondra Mancia RN) Smoking Status: Former smoker alcohol intake: never substance use type: denies use current occupational status: retired Travel in the last 8 weeks?: None Have you lived/traveled outside [place] in past 30 days?: No Contact w/someone who lives/traveled outside US past 30 days?: No Exposure to someone with infectious disease in past 14 days?: No Do you have a fever (greater than 100.4 F or 38 C)?: No Have you tested positive for COVID-19?: No Exposed to someone with COVID-19 in past 14 days?: No Do you have a sore throat?: No Do you have a cough?: No Do you have any weakness?: No Are you experiencing any nausea/vomitting?: No Do you have any diarrhea?: No Are you experiencing any unusual bleeding?: No Do you have any muscle aches/pain?: No Do you have any abdominal pain?: No Are you experiencing loss of taste or smell?: No Other Medical History Have you received the Flu Vaccine for this season: Yes Have you received the Pneumonia Vaccine: Yes Review of Systems Constitutional Constitutional: Reports fatigue, Reports fever(s) and Reports lethargy ENT Ears, Nose, Mouth, and Throat: Denies disequilibrium, Denies dizziness, Denies nasal congestion, Denies sinus pain and Denies sore throat *Cardiovascular Cardiovascular: Denies chest pain, Reports dyspnea, Denies leg edema and Reports rapid heart rate *Respiratory Respiratory: Reports chest congestion, Reports cough, Reports dyspnea and Denies hemoptysis *Gastrointestinal Gastrointestinal: Denies abdominal pain, Denies loose stools and Denies vomiting *Genitourinary Genitourinary: Denies difficulty urinating and Denies dysuria *Neurologic Neurologic: Denies confusion, Denies disequilibrium and Denies dizziness Psychiatric Psychiatric: Denies confusion Endocrine Endocrine: Reports fatigue Meds Home Medications and Allergies Home Medications ?Medication ?Instructions ?Recorded ?Confirmed ?Type albuterol sulfate 90 mcg/actuation 2 puff inhalation Q 4-6H PRN 02/14/25 02/14/25 History aerosol inhaler Shortness Of Breath apixaban 5 mg tablet (Eliquis) 5 mg PO BID 02/14/25 History atorvastatin 80 mg tablet 80 mg PO HS 02/14/25 5 History budesonide 160 mcg-glycopyr 9 2 puff inhalation BID 02/14/25 History mcg-formot 4.8 mcg/actuation HFA inhaler (Breztri Aerosphere) diltiazem HCl 120 mg 120 mg PO HS 02/14/25 History capsule,extended release 24 hr New Prescriptions to Start Prescriptions: Allergies Allergy/AdvReac Type Severity Reaction Status Date / Time No Known Allergies Allergy Unverified 03/16/19 12:58 Exam Data for Last 24 hours Vital signs and Labs for Last 24 Hours: Temp Pulse Resp BP Pulse Ox O2 Del Method O2 Flow Rate 98.1 F 98 H 19 141/81 H 99 Nasal Cannula 3 02/14/25 12:00 02/14/25 12:00 02/14/25 12:00 02/14/25 12:00 02/14/25 12:00 02/14/25 12:00 02/14/25 12:00 FiO2 30 02/14/25 09:18 Laboratory Results - last 24 hr 02/14/25 08:40: WBC 9.2, RBC 4.95, Hgb 14.9, Hct 45.4, MCV 91.7, MCH 30.1, MCHC 32.8, RDW 13.4, Plt Count 309, MPV 9.9, Neut % (Auto) 85.3 H, Lymph % (Auto) 9.6 L, [place] % (Auto) 4.3, Eos % (Auto) 0.1, Baso % (Auto) 0.4, Neut # (Auto) 7.9 H, Lymph # (Auto) 0.9, [place] # (Auto) 0.4, Eos # (Auto) 0.0, Baso # (Auto) 0.0, PT 11.4, INR 1.03, Sodium 141, Potassium 4.1, Chloride 95 L, Carbon Dioxide 37 H, Anion Gap 13.1, BUN 27 H, Creatinine 0.60 L, Estimated Creat Clear 46, Estimated GFR 132, Est GFR ( Amer) 160, Glucose 122 H, Lactate 2.8 H, Calcium 9.0, Magnesium 1.8, Total Bilirubin 0.6, AST 40, ALT 28, Alkaline Phosphatase 108, Troponin I < 0.01, NT-Pro-B Natriuret Pep 273 H, Total Protein 7.6, Albumin 4.0, Globulin 3.6 H, Albumin/Globulin Ratio 1.1, TSH 0.97, HCV Ab PARUL w/Rflx PCR Qn Negative, HIV Ag/Ab Combo Qual Negative 02/14/25 09:07: VBG pH 7.34, VBG pCO2 64.8 H, VBG pO2 28.5, VBG HCO3 33.9 H, VBG Total CO2 35.9 H, VBG O2 Saturation 50.1, VBG Base Excess 8.0 H, VBG Lactic Acid 3.2 H 02/14/25 09:08: Procalcitonin 0.077 02/14/25 09:19: SARS-CoV-2 (PCR) Not detected, Influenza A Untype (PCR) Not detected, Influenza Type B (PCR) Not detected I & O for Last 24 hours: Intake & Output 02/11/25 02/12/25 02/13/25 02/14/25 23:59 23:59 23:59 23:59 Intake Total 1650 / 1650 Balance 1650 / 1650 Weight 49.895 kg Constitutional Constitutional: no acute distress, thin, chronically ill appearing and cooperative *Routine HEENT Exam Head: Present normocephalic Eye: Present EOMI ENT: Present mucous membranes moist *Routine Neck Exam Neck: Present supple *Routine Respiratory Exam Respiratory: Present prolonged expiratory phase, rhonchi, wheezes, crackles and diminished air movement *Routine Cardiovascular Exam Cardiovascular: Present RRR; Absent murmur *Routine Abdominal Exam Abdominal: Present soft and normoactive bowel sounds; Absent tenderness *Routine Rectal Exam Rectal:: deferred *Routine Genitalia Exam Genitalia:: deferred *Routine Extremities Exam Extremities: Present full ROM and normal capillary refill; Absent edema *Routine Skin Exam Skin: Present intact and dry; Absent rash *Routine Neurological Exam Neurological: Present alert and oriented X3 Assessment and Plan *Assessment and plan (1) Acute respiratory failure with hypoxia: Status: Acute Category: Medical Code(s): J96.01 - Acute respiratory failure with hypoxia (2) Sepsis: Status: Acute Qualifiers: Sepsis acute organ dysfunction status: with acute organ dysfunction Sepsis type: sepsis due to unspecified organism Severe sepsis acute organ dysfunction type: acute respiratory failure Category: Medical Code(s): A41.9 - Sepsis, unspecified organism (3) Left lower lobe pneumonia: Status: Acute Qualifiers: Pneumonia type: due to unspecified organism Qualified Code(s): J18.9 - Pneumonia, unspecified organism Category: Medical Code(s): J18.9 - Pneumonia, unspecified organism (4) COPD (chronic obstructive pulmonary disease): Status: Acute Category: Medical Code(s): J44.9 - Chronic obstructive pulmonary disease, unspecified (5) Paroxysmal A-fib: Status: Acute Category: Medical Code(s): I48.0 - Paroxysmal atrial fibrillation (6) History of CVA (cerebrovascular accident): Status: Acute Category: Medical Code(s): Z86.73 - Personal history of transient ischemic attack (TIA), and cerebral infarction without residual deficits Plan Mr. Mays is a 74-year-old male who presented to the emergency department with complaints of shortness of breath. He has a primary medical history of COPD, TIA, paroxysmal atrial fibrillation, and PFO repair. He complains of shortness of breath over the last several weeks, worse this morning. He states that he could not catch his breath and could not walk across the room so he called EMS. He stated in the ED that he was feeling lightheaded, but denied chest pain, abdominal pain, nausea, vomiting, diarrhea. He does state that he has been running fevers at home, unsure of temperature. Patient was found to be hypoxic upon arrival, O2 saturation in the 70s per EMS. Patient was placed on non rebreather and O2 saturation became greater than 90%. Initially was put on BiPAP due to concerns for hypercapnic respiratory failure, VBG was assuring and patient was transition to nasal cannula. He was also given DuoNebs, Solu- Medrol, magnesium, and azithromycin and Rocephin IV. I personally reviewed his chest x-ray which showed a left lower lobe consolidation suspect for pneumonia. I was then consulted by the emergency department physician who requested admission, I agreed to admit the patient to the hospital medicine service. Plan of care as follows: #Acute respiratory failure with hypoxia #Sepsis #Left lower lobe pneumonia ? Workup in the emergency department was significant for left lower lobe pneumonia. Patient met sepsis criteria with tachypnea, tachycardia, and left lower lobe pneumonia. Patient received full sepsis bolus in the ED. He also states that he was febrile at home, afebrile during my assessment. Patient has new oxygen requirement of 3 L, wean as tolerated for O2 saturation greater than 90%. ? Patient was started on Rocephin 2 g and azithromycin 500 mg every 24 hours IV in the emergency department, will continue antibiotics. DuoNebs every 6 hours scheduled ordered. Patient received magnesium and Solu-Medrol IV in the emergency department, will hold on continuing steroids at this time. ? Laboratory workup, WBC 9.2, no anemia, no electrolyte abnormalities, BUN slightly elevated at 27, creatinine 0.60. Lactate originally 2.8, trended downward to 2.1. BNP slightly elevated at 273. Patient assessment reveals no volume overload. Troponins remain negative. Procalcitonin 0.077. TSH within normal limits, 0.97. Respiratory swab was negative for flu and COVID. ? CBC, CMP, magnesium ordered for the a.m. Blood cultures pending. #COPD ? Patient does have a diagnosis of COPD, former smoker, uses Breztri 2 puffs twice daily. Will continue during admission. #Paroxysmal A-fib #History of CVA ? Patient states that he has a history of paroxysmal A-fib, Follows with . Patient currently on diltiazem 120 mg at bedtime and Eliquis 5 mg twice daily. Patient does have a loop recorder in place. Patient states he had a CVA in 2018 where it was determined he had a PFO which was repaired. Patient has had no episodes of A-fib that he is aware of since that time. ? Will continue patient's diltiazem 120 mg at bedtime, Eliquis 5 mg twice daily, atorvastatin 80 mg at bedtime. Full code VTE?Eliquis 5 mg twice daily Regular diet Ambulate as tolerated
[2025-02-14 13:17] LABS: Reflex Lactic Add Lactic Reflex
[2025-02-14 13:50] LABS: Lactic Acid Follow Up (RFLX 1) 2.1 mmol/L (0.7-2.1)
[2025-02-14 13:54] LABS: Troponin I < 0.01 ng/ml (0.00-0.034)
[2025-02-14 15:19] LABS: Reflex Lactic (2 hrs) Add Lactic Reflex
[2025-02-14 16:07] LABS: Lactic Acid Follow up (RFLX 2) 1.7 mmol/L (0.7-2.1)
[2025-02-14 16:25] LABS: Troponin I < 0.01 ng/ml (0.00-0.034)
[2025-02-14] MEDS: IPRATROPIUM/ALBUTEROL 3 ML NEB IH ×2 (18:03→23:06)
[2025-02-14] MEDS: BUDESONIDE/GLYCOPYR/FORMOTEROL 160/9/4.8MCG INHALER 2 PUFF IH (18:14)
[2025-02-14] MEDS: ATORVASTATIN 40MG TABLET 80 MG PO (20:51)
[2025-02-14] MEDS: APIXABAN 5MG TABLET 5 MG PO (20:51)
[2025-02-14] MEDS: dilTIAZem ER 120MG CAPSULE 120 MG PO (20:53)
--- NOTE | 2025-02-14 21:41 | PC.NURSE ---
Addendum entered by Tatiana Castro RN 02/15/25 01:57: SPO@ maintaining >95%. O2 weaned to 1L NC Original Note: SPO2 100% on 3L NC. Pt weaned to 2L NC
[2025-02-15] VITALS (11 sets, daily range): BP systolic 86–115; BP diastolic 50–69; PULSE 66–90; RESP 16–20; TEMP 36.6–36.9; O2SAT 90–99; BMI 17.6
--- NOTE | 2025-02-15 01:51 | PC.NURSE ---
Addendum entered by Tatiana Castro RN 02/15/25 02:44: shortly after, pt c/o light headedness and also reported he was having left flank pain. Which he has been having intermittently for a while now. Mita Carlisle APRN notified. Verbal orders received for 500ml bolus of LR and UA. Original Note: SRNA called this RN to notify of midnight SBP 92. Pt ambulatory in room, asymptomatic. Mita Carlisle APRN notified.
[2025-02-15] MEDS: RINGERS SOLUTION,LACTATED 500 ML 125 ML IV (02:51)
[2025-02-15] MEDS: IPRATROPIUM/ALBUTEROL 3 ML NEB IH ×4 (06:04→23:24)
[2025-02-15] MEDS: BUDESONIDE/GLYCOPYR/FORMOTEROL 160/9/4.8MCG INHALER 2 PUFF IH ×2 (06:05→17:53)
[2025-02-15 06:06] LABS: Microscopic, Urine URINE MICROSCOPIC (MICROSCOPIC)
[2025-02-15 06:18] LABS: Bilirubin,Urine Negative (Negative); Color,Urine YELLOW (Yellow); Glucose,Urine (UA) Negative (Negative); Ketones,Urine Negative (Negative); Leukocyte Esterase,Urine Negative (Negative); PH,Urine 5.5 (5.0-8.5); Protein,Urine 1+ (Negative); Specific Gravity, Urine >= 1.030 (1.005-1.030); Urobilinogen,Urine 0.2 EU/dl (0.2)
[2025-02-15 06:25] LABS: RBC,Urine Occasional #/hpf (0-3)
[2025-02-15 06:26] LABS: Amorphous Sediment,Urine 1+ /lpf; Bacteria,Urine Trace /lpf; Mucus,Urine 4+ /lpf; Squamous Epithelial Cell,Urine Occasional #/hpf (0-5); WBC,Urine Occasional #/hpf (0-3)
[2025-02-15 06:42] LABS: Hematocrit 36.1 % (42.0-52.0); Immature Granulocytes % 0.4 %; Mean Corpuscular HGB Conc 31.0 g/dL (31.8-35.4); Mean Corpuscular Hemoglobin 29.0 pg (27.0-31.2); Mean Corpuscular Volume 93.5 fl (80-94); Nucleated Red Blood Cells % 0 %; Platelet Count 227 K/mm3 (142-424); Red Blood Count 3.86 M/mm3 (4.60-6.20); Red Cell Distribution Width-SD 47.0 fL; White Blood Count 13.6 K/mm3 (4.8-10.8)
[2025-02-15 06:59] LABS: Albumin Level 3.1 g/dl (3.5-5.0); Chloride 98 mmol/L (98-107); Sodium 137 mmol/L (136-145)
[2025-02-15 07:00] LABS: Potassium 3.7 mmoL/L (3.5-5.1)
[2025-02-15 07:02] LABS: Alanine Aminotransferase 31 U/L (12-78); Albumin/Globulin Ratio 1.1 (1.1-1.8); Alkaline Phosphatase 123 U/L (38-126); Anion Gap 8.7 mEq/L (5-15); Aspartate Amino Transferase 41 U/L (17-59); Bilirubin,Total 0.3 mg/dl (0.2-1.3); Blood Urea Nitrogen 27 mg/dl (9-20); Carbon Dioxide 34 mmol/L (22.0-30.0); Cholesterol 114 mg/dl (140-200); Creatinine Clearance Estimated 46 mL/min (50-200); Creatinine,Serum 0.50 mg/dl (0.66-1.25); Estimated Glomerular Filt Rate 163 ml/min (>60); GFR (African American) 197 ML/MIN (>60); Globulin 2.9 g/dL (1.3-3.2); Phosphorous 3.3 mg/dl (2.5-4.5); Total Protein,Serum 6.0 g/dl (6.3-8.2); Triglycerides 44 mg/dl (30-150)
[2025-02-15 07:03] LABS: Calcium 8.3 mg/dl (8.4-10.2); Glucose 139 mg/dl (74-100); HDL Cholesterol 48 mg/dl (40-60); Magnesium 2.2 mg/dl (1.6-2.3)
[2025-02-15 07:50] LABS: Hemoglobin 11.2 g/dL (14.1-18.0)
[2025-02-15] MEDS: APIXABAN 5MG TABLET 5 MG PO ×2 (08:06→21:02)
[2025-02-15] MEDS: LACTATED RINGERS 1000ML 500 ML 125 ML IV (08:08)
[2025-02-15] MEDS: AZITHROMYCIN 500 MG in 0.9 % SODIUM CHLORIDE 250 ML 250 MG IV (09:22)
--- NOTE | 2025-02-15 09:26 | P.PN_ITS ---
<Statement entered by Jewel Gonzalez MD - 02/15/25 19:23> Rounded on patient after nurse practitioner. Personally examined and interviewed patient. Agree with exam findings and care plan as documented. Subjective *Date: 02/15/25 *Time: 09:26 Interval history: Patient feeling better this morning, sitting up in bed eating breakfast. Patient weaned to 1 L nasal cannula, tolerating well. Continuing IV antibiotics. Patient has been intermittently hypotensive, receiving fluid bolus IV. Patient does endorse occasional dizziness/lightheadedness, more so with activity. Likely related to hypotension. Will continue to monitor. Patient continues to necessitate inpatient management. Medical Exam Vital signs and Labs for Last 24 Hours: Vital Signs Temp Pulse Pulse Resp BP BP Pulse Ox 02/15/25 08:00 98.4 F 78 18 86/50 L 99 02/15/25 07:46 02/15/25 06:55 02/15/25 06:05 82 02/15/25 06:05 89 02/15/25 06:05 90 L 02/15/25 05:00 02/15/25 04:35 99/60 L 02/15/25 04:00 97.9 F 66 16 97/55 L 98 02/15/25 03:00 02/15/25 02:45 96/55 L 02/15/25 01:00 02/14/25 23:00 02/14/25 21:00 02/14/25 20:00 98.0 F 91 H 16 115/74 100 02/14/25 20:00 02/14/25 18:46 02/14/25 18:46 02/14/25 18:45 97 H 02/14/25 17:00 02/14/25 15:45 98.6 F 101 H 18 132/81 98 02/14/25 15:00 02/14/25 13:00 02/14/25 12:00 98.1 F 98 H 19 141/81 H 99 02/14/25 11:56 98.4 F 105 H 20 132/70 02/14/25 11:39 02/14/25 11:01 101 H 21 132/70 100 02/14/25 10:15 105 H 13 94 L 02/14/25 10:12 95 02/14/25 10:10 106 H 26 H 96 02/14/25 10:00 113/56 L 02/14/25 10:00 114 H 14 95 02/14/25 09:45 121 H 18 96 02/14/25 09:31 134 H 26 H 107/77 L 90 L O2 Del Method O2 Flow Rate 02/15/25 08:00 Nasal Cannula 1.5 02/15/25 07:46 Nasal Cannula 1 02/15/25 06:55 Nasal Cannula 1 02/15/25 06:05 02/15/25 06:05 02/15/25 06:05 Nasal Cannula 2 02/15/25 05:00 Nasal Cannula 1 02/15/25 04:35 02/15/25 04:00 Nasal Cannula 1 02/15/25 03:00 Nasal Cannula 1 02/15/25 02:45 02/15/25 01:00 Nasal Cannula 1 02/14/25 23:00 Nasal Cannula 2 02/14/25 21:00 Room Air 02/14/25 20:00 Nasal Cannula 3 02/14/25 20:00 Nasal Cannula 3 02/14/25 18:46 Nasal Cannula 3 02/14/25 18:46 Nasal Cannula 3 02/14/25 18:45 02/14/25 17:00 Nasal Cannula 3 02/14/25 15:45 Nasal Cannula 3 02/14/25 15:00 Nasal Cannula 3 02/14/25 13:00 Room Air 02/14/25 12:00 Nasal Cannula 3 02/14/25 11:56 Nasal Cannula 3 02/14/25 11:39 Nasal Cannula 3 02/14/25 11:01 Nasal Cannula 3 02/14/25 10:15 Nasal Cannula 3 02/14/25 10:12 Nasal Cannula 3 02/14/25 10:10 Nasal Cannula 3 02/14/25 10:00 02/14/25 10:00 02/14/25 09:45 BiPAP 02/14/25 09:31 BiPAP Intake and Output 02/14/25 02/15/25 02/15/25 23:59 07:59 15:59 Intake Total 240 / 2380 500 / 900 400 / 900 Output Total 0 / 0 200 / 200 Balance 240 / 2380 300 / 700 400 / 700 Intake: Intake, Oral Amount 240 / 480 400 / 400 Intake, Total IV Amount 500 / 500 Ringers Solution,Lactated 500 500 / 500 ml @ 125 mls/hr IV .Q4H ONE Rx# :[id number] Output: Output, Urine Amount 0 / 0 200 / 200 Other: Number of Unmeasured Voids 1 1 Weight 49.89 kg Patient Weight 02/15/25 23:59 Weight 49.89 kg Laboratory Results - last 24 hr 02/14/25 08:40: Sodium 141, Potassium 4.1, Chloride 95 L, Carbon Dioxide 37 H, Anion Gap 13.1, BUN 27 H, Creatinine 0.60 L, Estimated Creat Clear 46, Estimated GFR 132, Est GFR ( Amer) 160, Glucose 122 H, Lactate 2.8 H, Calcium 9.0, Magnesium 1.8, Total Bilirubin 0.6, AST 40, ALT 28, Alkaline Phosphatase 108, Troponin I < 0.01, NT-Pro-B Natriuret Pep 273 H, Total Protein 7.6, Albumin 4.0, Globulin 3.6 H, Albumin/Globulin Ratio 1.1, TSH 0.97, HCV Ab PARUL w/Rflx PCR Qn Negative, HIV Ag/Ab Combo Qual Negative 02/14/25 09:08: Procalcitonin 0.077 02/14/25 09:19: SARS-CoV-2 (PCR) Not detected, Influenza A Untype (PCR) Not detected, Influenza Type B (PCR) Not detected 02/14/25 12:35: Lactate 2.1, Troponin I < 0.01 02/14/25 15:35: Lactate 1.7, Troponin I < 0.01 02/15/25 05:40: WBC 13.6 H D, RBC 3.86 L, Hgb 11.2 L D, Hct 36.1 L, MCV 93.5, MCH 29.0, MCHC 31.0 L, RDW 13.7, Plt Count 227 D, MPV 10.1, Neut % (Auto) 89.6 H, Lymph % (Auto) 4.1 L, [place] % (Auto) 5.7, Eos % (Auto) 0.0 L, Baso % (Auto) 0.2, Neut # (Auto) 12.2 H, Lymph # (Auto) 0.6 L, [place] # (Auto) 0.8, Eos # (Auto) 0.0, Baso # (Auto) 0.0, Sodium 137, Potassium 3.7, Chloride 98, Carbon Dioxide 34 H, Anion Gap 8.7, BUN 27 H, Creatinine 0.50 L, Estimated Creat Clear 46, Estimated GFR 163, Est GFR ( Amer) 197 D, Glucose 139 H, Calcium 8.3 L, Phosphorus 3.3, Magnesium 2.2 D, Total Bilirubin 0.3, AST 41, ALT 31, Alkaline Phosphatase 123, Total Protein 6.0 L, Albumin 3.1 L D, Globulin 2.9, Albumin/Globulin Ratio 1.1, Triglycerides 44, Cholesterol 114 L, LDL Cholesterol Direct 33.17 L, VLDL Cholesterol 9, HDL Cholesterol 48, Cholesterol/HDL Ratio 2.4 02/15/25 05:50: Urine Color Yellow, Urine Appearance Clear, Urine pH 5.5, Ur Specific [place] >= 1.030, Urine Protein 1+ A, Urine Glucose (UA) Negative, Urine Ketones Negative, Urine Blood Negative, Urine Nitrate Negative, Urine Bilirubin Negative, Urine Urobilinogen 0.2, Ur Leukocyte Esterase Negative, Urine RBC Occasional, Urine WBC Occasional, Ur Squamous Epith Cells Occasional, Amorphous Sediment 1+, Urine Bacteria Trace, Urine Mucus 4+ I & O for Labs for Last 24 Hours: Intake & Output 02/12/25 02/13/25 02/14/25 02/15/25 23:59 23:59 23:59 23:59 Intake Total 2380 / 2380 900 / 900 Output Total 0 / 0 200 / 200 Balance 2380 / 2380 700 / 700 Weight 49.895 kg 49.89 kg Microbiology Reports for the Last 24 Hours: Microbiology 02/14/25 08:40 Blood Blood Culture - Preliminary NO GROWTH AFTER 24 HOURS 02/14/25 16:59 Sputum - Expectorated Sputum Gram Stain - Final Constitutional: Present no acute distress, thin, chronically ill appearing and cooperative Head: Present atraumatic Eyes: Present as per HPI ENT: Present normal exam Neck: Present normal inspection Respiratory: Present prolonged expiratory phase, wheezes (Expiratory), normal respiratory effort and symmetric chest movement Cardiac: Present Reg Rate and Rhythm; Absent No Murmur GI: Present soft and normal bowel sounds; Absent distention or tenderness Rectal (male): Present deferred (male): Present deferred Extremities: Present normal inspection and full ROM; Absent edema Skin: Present intact and dry; Absent rash Neuro: Present Grossly Intact, alert, awake and oriented x 3 Assessment and Plan *Assessment and plan (1) Acute respiratory failure with hypoxia: Status: Acute Category: Medical Code(s): J96.01 - Acute respiratory failure with hypoxia (2) Sepsis: Status: Acute Qualifiers: Sepsis acute organ dysfunction status: with acute organ dysfunction Sepsis type: sepsis due to unspecified organism Severe sepsis acute organ dysfunction type: acute respiratory failure Category: Medical Code(s): A41.9 - Sepsis, unspecified organism (3) Left lower lobe pneumonia: Status: Acute Qualifiers: Pneumonia type: due to unspecified organism Qualified Code(s): J18.9 - Pneumonia, unspecified organism Category: Medical Code(s): J18.9 - Pneumonia, unspecified organism (4) COPD (chronic obstructive pulmonary disease): Status: Acute Category: Medical Code(s): J44.9 - Chronic obstructive pulmonary disease, unspecified (5) Paroxysmal A-fib: Status: Acute Category: Medical Code(s): I48.0 - Paroxysmal atrial fibrillation (6) History of CVA (cerebrovascular accident): Status: Acute Category: Medical Code(s): Z86.73 - Personal history of transient ischemic attack (TIA), and cerebral infarction without residual deficits Plan Mr. Mays is a 74-year-old male who presented to the emergency department with complaints of shortness of breath. He has a primary medical history of COPD, TIA, paroxysmal atrial fibrillation, and PFO repair. He complains of shortness of breath over the last several weeks, worse this morning. He states that he could not catch his breath and could not walk across the room so he called EMS. He stated in the ED that he was feeling lightheaded, but denied chest pain, abdominal pain, nausea, vomiting, diarrhea. He does state that he has been running fevers at home, unsure of temperature. Patient was found to be hypoxic upon arrival, O2 saturation in the 70s per EMS. Patient was placed on nonrebreather and O2 saturation became greater than 90%. Initially was put on BiPAP due to concerns for hypercapnic respiratory failure, VBG was assuring and patient was transition to nasal cannula. He was also given DuoNebs, Solu- Medrol, magnesium, and azithromycin and Rocephin IV. I personally reviewed his chest x-ray which showed a left lower lobe consolidation suspect for pneumonia. I was then consulted by the emergency department physician who requested admission, I agreed to admit the patient to the hospital medicine service. Plan of care as follows: #Acute respiratory failure with hypoxia #Sepsis #Left lower lobe pneumonia ? Workup in the emergency department was significant for left lower lobe pneumonia. Patient met sepsis criteria with tachypnea, tachycardia, and left lower lobe pneumonia. Patient received full sepsis bolus in the ED. He also states that he was febrile at home, afebrile during my assessment. Patient has new oxygen requirement of 3 L, wean to 1 L nasal cannula. Continue to wean to keep O2 saturation greater than 90%. ? Patient was started on Rocephin 2 g and azithromycin 500 mg every 24 hours IV in the emergency department, will continue antibiotics. DuoNebs every 6 hours scheduled ordered. Patient received magnesium and Solu-Medrol IV in the emergency department, will hold on continuing steroids at this time. ? Laboratory workup, WBC 9.2, no anemia, no electrolyte abnormalities, BUN slightly elevated at 27, creatinine 0.60. Lactate originally 2.8, trended downward to 2.1. BNP slightly elevated at 273. Patient assessment reveals no volume overload. Troponins remain negative. Procalcitonin 0.077. TSH within normal limits, 0.97. Respiratory swab was negative for flu and COVID. ? CBC, CMP, magnesium ordered for the a.m. Blood cultures show no growth after 24 hours, sputum culture Gram stain shows multiple gram-positive diplococci. Will continue to follow for sensitivity. #COPD ? Patient does have a diagnosis of COPD, former smoker, uses Breztri 2 puffs twice daily. Will continue during admission. ?DuoNebs ordered every 6 hours scheduled. Patient states his work of breathing feels much better. Worsening with activity. #Paroxysmal A-fib #History of CVA ? Patient states that he has a history of paroxysmal A-fib, Follows with . Patient currently on diltiazem 120 mg at bedtime and Eliquis 5 mg twice daily. Patient does have a loop recorder in place. Patient states he had a CVA in 2018 where it was determined he had a PFO which was repaired. Patient has had no episodes of A-fib that he is aware of since that time. ? Will continue patient's diltiazem 120 mg at bedtime, Eliquis 5 mg twice daily, atorvastatin 80 mg at bedtime. Full code VTE?Eliquis 5 mg twice daily Regular diet Ambulate as tolerated
--- NOTE | 2025-02-15 10:16 | HMH.PTEV ---
Physical Therapy Evaluation Rehab PT IP Evaluation Start: 02/14/25 14:34 Freq: ONCE Status: Complete Protocol: Document 02/15/25 10:07 CECILE (Rec: 02/15/25 10:10 CECILE [id number]) Subjective/History History History Per H&P: Mr. Mays is a 74-year-old male who presented to the emergency department with complaints of shortness of breath. He has a primary medical history of COPD, TIA, paroxysmal atrial fibrillation, and PFO repair. He complains of shortness of breath over the last several weeks, worse this morning. He states that he could not catch his breath and could not walk across the room so he called EMS. He stated in the ED that he was feeling lightheaded, but denied chest pain, abdominal pain, nausea, vomiting, diarrhea. He does state that he has been running fevers at home, unsure of temperature. Patient was found to be hypoxic upon arrival, O2 saturation in the 70s per EMS. Patient was placed on nonrebreather and O2 saturation became greater than 90% . Initially was put on BiPAP due to concerns for hypercapnic respiratory failure, VBG was assuring and patient was transition to nasal cannula. He was also given DuoNebs, Solu-Medrol, magnesium, and azithromycin and Rocephin IV. Patient's O2 improved and was tolerating 3 L nasal cannula on admission. Subjective Subjective Pt reports he lives with his in a tri-level home ( HRs on steps) and is usually IND with mobility without AD use. Pt stills drives. Pt's works in [place]. [facility] How much help from another person do you currently need... Turning from your None back to your side while in a flat bed without using bedrails? Moving from lying on None back to sitting on the side of a flat bed without using bedrails? Moving to and from a None bed to a chair ( including a wheelchair)? Standing up from a None chair using your arms? (e.g., wheelchair, bedside chair) Walking in hospital None room? Climbing 3-5 steps A little with a railing? Mobility Score 23 Mobility Level [facility] Mobility 7 Walk 25 feet or more Mobility Calculator Rehab PT IP Eval Objective Appearance Patient Behavior Appropriate,Cooperative Patient Orientation Person,Birthday,Situation Difficulty following none instructions Speech Pattern Clear Ambulation Patient Able to Yes Ambulate Ambulation Observation IP General Gait No Deviations/Normal Pattern Observation Ambulation Distance 25 (feet) Ambulation Assistive None Device Ambulation Ability Supervision/Stand by Balance Ability to Arise Able, uses arms to help Sitting Balance Steady, safe Standing Balance Steady, wide stance Dynamic Sitting Good Balance Ability Dynamic Standing Good Balance Ability Transfers Bed Transfer Ability Independent Sit to Stand Bed Independent Transfer Ability Rehab PT IP prob,goals,plan Problems Date of Evaluation: 02/15/25 Rehab Potential Rehab Potential Innapropriate for Skilled Therapy Discharge Plan PT Discharge Plan Pt presents at his baseline in mobility/IND and would not benefit from skilled IP PT at this time. Eval Complexity Eval Charge Codes 86568 - Moderate Complexity PHYSICIAN CERTIFICATION: I certify the specified therapy services for Hayes Mays are required, authorized, and reviewed every 30 days.
--- NOTE | 2025-02-15 10:25 | HMH.OTEV ---
OT Evaluation Rehab OT IP Evaluation Start: 02/14/25 14:34 Freq: ONCE Status: Active Protocol: [facility]15/25 10:[facility] (Rec: 02/15/25 10:24 [facility] [id number]) Rehab OT IP Assessment Subjective History Pt oriented x3 on arrival. Pt agreeable to engage in therapy evaluation. Pt's present and supportive during therapy session. Pt admitted on 02/14/25 due to Acute hypoxic respiratory failure. History and physical: Mr. Mays is a 74-year-old male who presented to the emergency department with complaints of shortness of breath. He has a primary medical history of COPD, TIA, paroxysmal atrial fibrillation, and PFO repair. He complains of shortness of breath over the last several weeks, worse this morning. He states that he could not catch his breath and could not walk across the room so he called EMS. He stated in the ED that he was feeling lightheaded, but denied chest pain, abdominal pain, nausea, vomiting, diarrhea. He does state that he has been running fevers at home, unsure of temperature. Patient was found to be hypoxic upon arrival, O2 saturation in the 70s per EMS. Patient was placed on nonrebreather and O2 saturation became greater than 90% . Initially was put on BiPAP due to concerns for hypercapnic respiratory failure, VBG was assuring and patient was transition to nasal cannula. He was also given DuoNebs, Solu-Medrol, magnesium, and azithromycin and Rocephin IV. Patient's O2 improved and was tolerating 3 L nasal cannula on admission. Subjective Prior to being in the hospital, pt lived at home with his . Pt claims normally he is independent with all ADLs. However, he reports having difficulty with bathing. Pt reports extended time with bathing due to difficulty with breathing. At this time, he stands to take showers and has to turn water on and off due to humidity/steam from shower and SOB. Therapist did recommend shower chair and hand held shower in order for safety and energy conservation. Pt quickly refused both recommendations reporting he is not ready for that and does not want AE. He usually does not use any type of AE during functional transfers. He is not on oxygen at home. He is also independent with light IADLs. He still drives. Pt's completes heavier IADLs. Objective Patient Orientation Person,Place,Birthday Right Upper WFL Extremity Gross ROM Left Upper Extremity WFL Gross ROM Bed Mobility bed mobility-scooting,bed mobility - supine/sit Assist Level Supervision/Stand by Transfer Training Sit/Stand Transfer Assist Level Supervision/Stand by Chair Transfer Supervision/Stand by Ability Chair Transfer Sit to/from Ambulatory Technique Lower Body Dressing Standby Assistance Ability Performing Toilet Standby Assistance Hygiene Ability Overall Commode/ Standby Assistance Toilet Transfer Ability Commode/Toilet Sit to/from Ambulatory Transfer Technique Rehab OT IP prob,goals,plan Problems Date of Evaluation: 02/15/25 Rehab Potential Rehab Potential Innapropriate for Skilled Therapy Discharge Plan OT Discharge Plan Pt appears to be at his baseline with functional transfers and ADL independence. Pt can return home with once he is medically stable per physician. Therapist does recommend HH OT evaluation when returning home in order to assist with environmental adaptations to assist with energy conservation. Eval Complexity Eval Charge Codes 58156 - Moderate Complexity PHYSICIAN CERTIFICATION: I certify the specified therapy services for Hayes Mays are required, authorized, and reviewed every 30 days.
--- NOTE | 2025-02-15 16:21 | PC.NURSE ---
PT IS RESTING IN BED. NO COMPLAINTS OF DISCOMFORT. PT STATES HE STILL FEELS VERY WEAK AND SOA. ROOM AIR SATURATION THIS SHIFT WAS 89%. O2 SATURATION HAS MAINTAINED 92-96% ON 1 L NC. LUNG SOUNDS DIMINISHED WITH SCATTERED WHEEZES. PT COMPLAINS OF DIZZINESS WHILE STANDING. 1600 BP AT REST 104/61. ABDOMEN SOFT/NON TENDER WITH ACTIVE BOWEL SOUNDS. SKIN C/D/I. NO SWELLING NOTED TO BLE. WILL CONTINUE TO MONITOR.
[2025-02-15] MEDS: ATORVASTATIN 40MG TABLET 80 MG PO (21:02)
[2025-02-15] MEDS: dilTIAZem ER 120MG CAPSULE 120 MG PO (21:02)
[2025-02-16] VITALS (13 sets, daily range): BP systolic 99–148; BP diastolic 59–92; PULSE 73–107; RESP 16–20; TEMP 36.4–36.6; O2SAT 96–99; BMI 17.9
[2025-02-16] MEDS: IPRATROPIUM/ALBUTEROL 3 ML NEB IH ×4 (05:58→23:00)
[2025-02-16] MEDS: BUDESONIDE/GLYCOPYR/FORMOTEROL 160/9/4.8MCG INHALER 2 PUFF IH (05:58)
[2025-02-16 06:31] LABS: Hematocrit 36.5 % (42.0-52.0); Hemoglobin 11.7 g/dL (14.1-18.0); Immature Granulocytes % 0.3 %; Mean Corpuscular HGB Conc 32.1 g/dL (31.8-35.4); Mean Corpuscular Hemoglobin 29.8 pg (27.0-31.2); Mean Corpuscular Volume 92.9 fl (80-94); Nucleated Red Blood Cells % 0 %; Platelet Count 256 K/mm3 (142-424); Red Blood Count 3.93 M/mm3 (4.60-6.20); Red Cell Distribution Width-SD 47.4 fL; White Blood Count 13.4 K/mm3 (4.8-10.8)
[2025-02-16 06:45] LABS: Albumin Level 3.3 g/dl (3.5-5.0); Chloride 98 mmol/L (98-107); Potassium 4.3 mmoL/L (3.5-5.1); Sodium 138 mmol/L (136-145)
[2025-02-16 06:48] LABS: Alanine Aminotransferase 34 U/L (12-78); Albumin/Globulin Ratio 1.1 (1.1-1.8); Alkaline Phosphatase 86 U/L (38-126); Anion Gap 8.3 mEq/L (5-15); Aspartate Amino Transferase 57 U/L (17-59); Bilirubin,Total 0.2 mg/dl (0.2-1.3); Blood Urea Nitrogen 28 mg/dl (9-20); Calcium 8.6 mg/dl (8.4-10.2); Carbon Dioxide 36 mmol/L (22.0-30.0); Creatinine Clearance Estimated 47 mL/min (50-200); Creatinine,Serum 0.50 mg/dl (0.66-1.25); Estimated Glomerular Filt Rate 163 ml/min (>60); GFR (African American) 197 ML/MIN (>60); Globulin 2.9 g/dL (1.3-3.2); Glucose 86 mg/dl (74-100); Magnesium 2.1 mg/dl (1.6-2.3); Total Protein,Serum 6.2 g/dl (6.3-8.2)
[2025-02-16] MEDS: APIXABAN 5MG TABLET 5 MG PO ×2 (08:44→21:41)
--- NOTE | 2025-02-16 09:29 | CA_ITS ---
APPROVED REPORT EXAM: Comprehensive 2D, Doppler, and color-flow Echocardiogram Proposal Rep: Yuliet Flynn RVT Ht: 5 ft 6 in Wt: 111lbs BSA: 1.56 BP: 141/81 mmHg Indications: SHORTNESS OF BREATH 2D Dimensions EF AP4 67.70 % GL Strain -25.3 % M-Mode Dimensions RVDd 2.61 cm (0.9-2.6) LA Diam 2.75 cm (1.9-4.0) LVDd 4.72 cm (3.5-5.7) LVDs 3.32 cm (3.5-5.7) IVSd 0.46 cm (0.6-1.1) PWd 0.43 cm (0.6-1.1) EF (Teich) 56.70% FS 29.70% EDV (Teich) 103.40 mL TAPSE 2.39 (<1.7) ESV (Teich) 44.80 mL LV Diastology E Decel Time 150 (160-240 msec) E/A Ratio 0.9 Aortic Valve AO Peak GR. 4.20 mmHg Mitral Valve MV E Max [place]. 54.0 (40-130 cm/s) MV A Velocity 57.0 (40-130 cm/s) E/A Ratio 0.93 MV PHT 44.0 ms Pulmonary Valve PV Peak Velocity 66.0 (50-150 cm/s) Tricuspid Valve TR P. Velocity 340.00 cm/s RAP Estimate 8.00 mmHg RVSP 54.20 mmHg Left Ventricle The left ventricle is normal size. Left ventricular systolic function is mildly reduced. There is increased left ventricular wall thickness. Septal flattening is present, consistent with right-sided pressure/volume overload. Th grade 2 diastolic dysfunction is present. LVEF is 45% Right Ventricle The right ventricle is moderately to severely dilated. The right ventricular systolic function is mildly reduced. Atria The left atrium is moderately dilated. The right atrium is moderately dilated. The interatrial septum is not well-visualized. Aortic Valve The aortic valve is mildly thickened. There is no hemodynamically significant aortic valvular stenosis. Trace aortic regurgitation is present. Mitral Valve The mitral valve is is mildly thickened. No evidence of mitral valve stenosis. Trace mitral regurgitation is present. Tricuspid Valve The tricuspid valve leaflets are thin and pliable. Mild tricuspid regurgitation. RVSP is 50-55 mmHg. Pulmonic Valve The pulmonary valve is grossly normal in structure. Mild pulmonic valve regurgitation is present. Great Vessels The aortic root is normal in size. IVC is dilated, collapses < 50% with respirophasic variation. RA pressure is estimated at 15 mmHg. Pericardium There is no pericardial effusion. Other Information Study Quality: Fair Conclusion Mildly reduced LV systolic function (LVEF 45%). Grade 2 diastolic dysfunction. Septal flattening, consistent with right-sided pressure/volume overload. Moderate to severe RV dilation with mild reduction in RV function. Biatrial dilation. Mild TR, mild PI. Elevated RVSP 50-55 mmHg. Electronically signed by : Smiley Patterson MD 02/16/2025 15:01:41
--- NOTE | 2025-02-16 09:34 | SW/DCPLANNER ---
Spoke with patient regarding home health services once he is medically stable and ready for discharge. Patient stated that he is not interested in home health and does not believe he needs the services at this time. Johnna Zheng
[2025-02-16] MEDS: AZITHROMYCIN 250MG TABLET 500 MG PO (11:10)
[2025-02-16] MEDS: FUROSEMIDE 40MG/4ML VIAL 40 MG IV (11:14)
--- NOTE | 2025-02-16 12:29 | P.PN_ITS ---
<Statement entered by Jewel Gonzalez MD - 02/16/25 18:47> Rounded on patient after nurse practitioner. Personally examined and interviewed patient. Agree with exam findings and care plan as documented. Consult pulmonology for the morning. Subjective *Date: 02/16/25 *Time: 15:18 Interval history: Patient sitting up in bed, still complaining of shortness of breath with exertion. Patient O2 saturation 95% on room air, walk test shows O2 saturation mid 80s without O2. Echo obtained, prelim shows elevated RVSP. Patient given 1 dose Lasix 40 mg IV. Initiated steroids to help with pulmonary inflammation. Lung sounds diminished but no audible wheezes. Medical Exam Vital signs and Labs for Last 24 Hours: Vital Signs Temp Pulse Pulse Pulse Pulse Pulse Pulse 02/16/25 11:19 80 02/16/25 11:19 78 02/16/25 11:19 02/16/25 09:29 86 95 H 104 H 02/16/25 07:33 97.9 F 85 02/16/25 07:00 02/16/25 05:59 76 02/16/25 05:59 76 02/16/25 05:59 02/16/25 05:00 02/16/25 03:38 97.6 F 73 02/16/25 03:00 02/16/25 01:00 02/16/25 00:00 97.7 F 92 H 02/16/25 00:00 83 02/16/25 00:00 88 02/15/25 23:00 02/15/25 21:00 02/15/25 20:00 02/15/25 20:00 97.8 F 86 02/15/25 19:00 02/15/25 18:58 02/15/25 18:20 82 02/15/25 18:00 82 02/15/25 17:00 02/15/25 16:00 98.2 F 77 02/15/25 15:00 02/15/25 12:55 Resp BP BP BP BP Pulse Ox O2 Del Method 02/16/25 11:19 02/16/25 11:19 02/16/25 11:19 97 Nasal Cannula 02/16/25 09:29 128/82 133/92 H 142/84 H 02/16/25 07:33 16 133/73 98 Nasal Cannula 02/16/25 07:00 Nasal Cannula 02/16/25 05:59 02/16/25 05:59 02/16/25 05:59 98 Nasal Cannula 02/16/25 05:00 Nasal Cannula 02/16/25 03:38 20 120/72 98 Nasal Cannula 02/16/25 03:00 Nasal Cannula 02/16/25 01:00 Nasal Cannula 02/16/25 00:00 18 99/59 L 99 Nasal Cannula 02/16/25 00:00 02/16/25 00:00 02/15/25 23:00 Nasal Cannula 02/15/25 21:00 Nasal Cannula 02/15/25 20:00 Nasal Cannula 02/15/25 20:00 20 115/69 97 Nasal Cannula 02/15/25 19:00 Nasal Cannula 02/15/25 18:58 Nasal Cannula 02/15/25 18:20 02/15/25 18:00 02/15/25 17:00 Nasal Cannula 02/15/25 16:00 18 104/61 L 97 Nasal Cannula 02/15/25 15:00 Nasal Cannula 02/15/25 12:55 Nasal Cannula O2 Flow Rate FiO2 02/16/25 11:19 02/16/25 11:19 02/16/25 11:19 1 02/16/25 09:29 02/16/25 07:33 2.5 02/16/25 07:00 2.5 02/16/25 05:59 02/16/25 05:59 02/16/25 05:59 2 28 02/16/25 05:00 2.5 02/16/25 03:38 2.5 02/16/25 03:00 2 02/16/25 01:00 2 02/16/25 00:00 2.5 02/16/25 00:00 02/16/25 00:00 02/15/25 23:00 2 02/15/25 21:00 1.5 02/15/25 20:00 2 02/15/25 20:00 2 02/15/25 19:00 1 02/15/25 18:58 1 02/15/25 18:20 02/15/25 18:00 02/15/25 17:00 1 02/15/25 16:00 1 02/15/25 15:00 1 02/15/25 12:55 1 Intake and Output 02/15/25 02/16/25 02/16/25 23:59 07:59 15:59 Intake Total 237 / 777 540 / 777 Output Total 0 / 200 0 / 900 900 / 900 Balance 0 1786 237 / -123 -360 / -123 Intake: Intake, Oral Amount 237 / 777 540 / 777 Output: Output, Urine Amount 0 / 200 0 / 900 900 / 900 Other: Number of Unmeasured Voids 1 1 2 Number of Bowel Movements 1 Weight 50.485 kg Patient Weight 02/16/25 23:59 Weight 50.485 kg Laboratory Results - last 24 hr 02/16/25 05:40: WBC 13.4 H, RBC 3.93 L, Hgb 11.7 L, Hct 36.5 L, MCV 92.9, MCH 29.8, MCHC 32.1, RDW 13.7, Plt Count 256, MPV 9.8, Neut % (Auto) 85.2 H, Lymph % (Auto) 6.3 L, [place] % (Auto) 7.9, Eos % (Auto) 0.2, Baso % (Auto) 0.1, Neut # (Auto) 11.4 H, Lymph # (Auto) 0.8, [place] # (Auto) 1.1 H, Eos # (Auto) 0.0, Baso # (Auto) 0.0, Sodium 138, Potassium 4.3, Chloride 98, Carbon Dioxide 36 H, Anion Gap 8.3, BUN 28 H, Creatinine 0.50 L, Estimated Creat Clear 47, Estimated GFR 163, Est GFR ( Amer) 197, Glucose 86 D, Calcium 8.6, Magnesium 2.1, Total Bilirubin 0.2, AST 57 D, ALT 34, Alkaline Phosphatase 86, Total Protein 6.2 L, Albumin 3.3 L, Globulin 2.9, Albumin/Globulin Ratio 1.1 I & O for Labs for Last 24 Hours: Intake & Output 02/13/25 02/14/25 02/15/25 02/16/25 23:59 23:59 23:59 23:59 Intake Total 2380 / 2380 1749 / 1986 777 / 777 Output Total 0 / 0 200 / 200 900 / 900 Balance 2380 / 2380 1550 / 1787 -123 / -123 Weight 49.895 kg 49.89 kg 50.485 kg Microbiology Reports for the Last 24 Hours: Microbiology 02/14/25 09:24 Blood Blood Culture - Preliminary NO GROWTH AFTER 48 HOURS 02/14/25 08:40 Blood Blood Culture - Preliminary NO GROWTH AFTER 48 HOURS 02/14/25 16:59 Sputum - Expectorated Sputum Gram Stain - Final 02/14/25 16:59 Sputum - Expectorated Sputum Sputum Culture - Final Constitutional: Present no acute distress, thin, chronically ill appearing and cooperative Head: Present atraumatic Eyes: Present as per HPI ENT: Present normal exam Neck: Present normal inspection Respiratory: Present diminished air movement, normal respiratory effort and symmetric chest movement Cardiac: Present Reg Rate and Rhythm; Absent No Murmur GI: Present soft and normal bowel sounds; Absent distention or tenderness Rectal (male): Present deferred (male): Present deferred Extremities: Present normal inspection and full ROM; Absent edema Skin: Present intact and dry; Absent rash Neuro: Present Grossly Intact, alert, awake and oriented x 3 Assessment and Plan *Assessment and plan (1) Acute respiratory failure with hypoxia: Status: Acute Category: Medical Code(s): J96.01 - Acute respiratory failure with hypoxia (2) Sepsis: Status: Acute Qualifiers: Sepsis acute organ dysfunction status: with acute organ dysfunction Sepsis type: sepsis due to unspecified organism Severe sepsis acute organ dysfunction type: acute respiratory failure Category: Medical Code(s): A41.9 - Sepsis, unspecified organism (3) Left lower lobe pneumonia: Status: Acute Qualifiers: Pneumonia type: due to unspecified organism Qualified Code(s): J18.9 - Pneumonia, unspecified organism Category: Medical Code(s): J18.9 - Pneumonia, unspecified organism (4) COPD (chronic obstructive pulmonary disease): Status: Acute Category: Medical Code(s): J44.9 - Chronic obstructive pulmonary disease, unspecified (5) Paroxysmal A-fib: Status: Acute Category: Medical Code(s): I48.0 - Paroxysmal atrial fibrillation (6) History of CVA (cerebrovascular accident): Status: Acute Category: Medical Code(s): Z86.73 - Personal history of transient ischemic attack (TIA), and cerebral infarction without residual deficits (7) Severe protein-calorie malnutrition: Status: Acute Category: Medical Code(s): E43 - Unspecified severe protein-calorie malnutrition Plan Mr. Mays is a 74-year-old male who presented to the emergency department with complaints of shortness of breath. He has a primary medical history of COPD, TIA, paroxysmal atrial fibrillation, and PFO repair. He complains of shortness of breath over the last several weeks, worse this morning. He states that he could not catch his breath and could not walk across the room so he called EMS. He stated in the ED that he was feeling lightheaded, but denied chest pain, abdominal pain, nausea, vomiting, diarrhea. He does state that he has been running fevers at home, unsure of temperature. Patient was found to be hypoxic upon arrival, O2 saturation in the 70s per EMS. Patient was placed on nonrebreather and O2 saturation became greater than 90%. Initially was put on BiPAP due to concerns for hypercapnic respiratory failure, VBG was assuring and patient was transition to nasal cannula. He was also given DuoNebs, Solu- Medrol, magnesium, and azithromycin and Rocephin IV. I personally reviewed his chest x-ray which showed a left lower lobe consolidation suspect for pneumonia. I was then consulted by the emergency department physician who requested admission, I agreed to admit the patient to the hospital medicine service. Plan of care as follows: #Acute respiratory failure with hypoxia #Sepsis #Left lower lobe pneumonia ? Workup in the emergency department was significant for left lower lobe pneumonia. Patient met sepsis criteria with tachypnea, tachycardia, and left lower lobe pneumonia. Patient received full sepsis bolus in the ED. He also states that he was febrile at home, afebrile during my assessment. Patient has new oxygen requirement of 3 L, weaned to room air. Patient requiring O2 with exertion, when ambulating patient's O2 dropped to 84%. ? Patient was started on Rocephin 2 g and azithromycin 500 mg every 24 hours IV in the emergency department, will continue antibiotics. DuoNebs every 6 hours scheduled ordered. Patient received magnesium and Solu-Medrol IV in the emergency department. ? Laboratory workup, WBC 13.4, no anemia, no electrolyte abnormalities, BUN slightly elevated at 28, creatinine 0.50. Lactate originally 2.8, trended downward to 2.1. BNP slightly elevated at 273. Patient assessment reveals no volume overload. Troponins remain negative. Procalcitonin 0.077. TSH within normal limits, 0.97. Respiratory swab was negative for flu and COVID. Patient continued to feel short of breath, echo obtained; mildly reduced LVEF 45%, grade 2 diastolic dysfunction, elevated RVSP of 50-55. 1 dose of IV Lasix 40 mg given, stop diltiazem daily as this can contribute to worsening heart failure. Initiate metoprolol succinate 12.5 daily, Farxiga 10 mg daily, and Entresto twice daily for goal-directed therapy. ? CBC, CMP, magnesium ordered for the a.m. Blood cultures show no growth after 24 hours, sputum culture Gram stain shows normal respiratory lucho. #COPD #Emphysema ? Patient does have a diagnosis of COPD, former smoker, uses Breztri 2 puffs twice daily. Will continue during admission. ? DuoNebs ordered every 6 hours scheduled. Patient still complains of shortness of breath, worse with activity. Feels as though he is gasping for air when he tries to ambulate. Will initiate steroids for continued shortness of air, Solu- Medrol 40 mg IV given once, continue prednisone 40 mg p.o. x 5 days. Will also order albuterol inhaler every 4 hours as needed for shortness of breath between DuoNeb treatments. #Paroxysmal A-fib #History of CVA ? Patient states that he has a history of paroxysmal A-fib, Follows with [facility]. Patient currently on diltiazem 120 mg at bedtime and Eliquis 5 mg twice daily. Patient does have a loop recorder in place. Patient states he had a CVA in 2018 where it was determined he had a PFO which was repaired. Patient has had no episodes of A-fib that he is aware of since that time. ? Will continue patient's Eliquis 5 mg twice daily, atorvastatin 80 mg at bedtime. #Severe protein?calorie malnutrition ? Patient meets criteria for severe protein?calorie malnutrition. Patient seen by nutrition consulted who recommended protein supplementation. Patient does state that he has lost 40 pounds in the last year or so. He states he has had a recent colonoscopy (in January). ? PT/OT evaluation recommendation was home health services, patient declined. Full code VTE?Eliquis 5 mg twice daily Regular diet Ambulate as tolerated
[2025-02-16] MEDS: METHYLPREDNISOLONE SOD SUCC 40MG VIAL 40 MG IV (13:59)
[2025-02-16] MEDS: AEROCHAMBER/OPTIHALER 1 UNIT MC (16:43)
[2025-02-16] MEDS: BUDESONIDE 0.5MG/2ML NEB 0.5 MG IH (18:54)
[2025-02-16] MEDS: ATORVASTATIN 40MG TABLET 80 MG PO (21:41)
[2025-02-16] MEDS: SACUBITRIL/VALSARTAN 24-26MG TABLET 1 EACH PO (21:41)
[2025-02-17] VITALS (10 sets, daily range): BP systolic 127–157; BP diastolic 76–96; PULSE 80–115; RESP 18–22; TEMP 36.3–36.7; O2SAT 3–98; BMI 17.8
--- NOTE | 2025-02-17 05:28 | PC.NURSE ---
Pt is resting in bed. His is in the room with him. PT is currently on 3L N/C of Oxygen. Pt gets Extremely SOA when he walks to the BR Wtih the 3L of O2 on. It takes him a good while to recover from walking to the BR. I have Asked him 2 different time tonight to use the BSC which is there by the bed. Pt is Alert and Oriented x4. He has the Electrolyte Protocol in Place. Pt sputum was sent down last night pending results. Pt is on a Regular Diet. Call light is with in reach. Not c/O pain at this time Pt is resting. LITTLE SMILEY RN
[2025-02-17 06:22] LABS: Hematocrit 42.1 % (42.0-52.0); Immature Granulocytes % 0.6 %; Mean Corpuscular HGB Conc 31.6 g/dL (31.8-35.4); Mean Corpuscular Hemoglobin 28.9 pg (27.0-31.2); Mean Corpuscular Volume 91.3 fl (80-94); Nucleated Red Blood Cells % 0 %; Platelet Count 293 K/mm3 (142-424); Red Blood Count 4.61 M/mm3 (4.60-6.20); Red Cell Distribution Width-SD 44.7 fL; White Blood Count 12.7 K/mm3 (4.8-10.8)
[2025-02-17 06:30] LABS: Hemoglobin 13.5 g/dL (14.1-18.0)
[2025-02-17 06:35] LABS: Albumin Level 3.7 g/dl (3.5-5.0); Chloride 94 mmol/L (98-107); Potassium 4.8 mmoL/L (3.5-5.1); Sodium 133 mmol/L (136-145)
[2025-02-17 06:37] LABS: Alanine Aminotransferase 36 U/L (12-78); Aspartate Amino Transferase 65 U/L (17-59); Blood Urea Nitrogen 30 mg/dl (9-20); Creatinine Clearance Estimated 47 mL/min (50-200); Creatinine,Serum 0.40 mg/dl (0.66-1.25); Estimated Glomerular Filt Rate 211 ml/min (>60); GFR (African American) 255 ML/MIN (>60)
[2025-02-17 06:38] LABS: Albumin/Globulin Ratio 1.2 (1.1-1.8); Alkaline Phosphatase 127 U/L (38-126); Anion Gap 13.8 mEq/L (5-15); Bilirubin,Total 0.8 mg/dl (0.2-1.3); Calcium 8.7 mg/dl (8.4-10.2); Carbon Dioxide 30 mmol/L (22.0-30.0); Globulin 3.2 g/dL (1.3-3.2); Glucose 108 mg/dl (74-100); Magnesium 2.2 mg/dl (1.6-2.3); Total Protein,Serum 6.9 g/dl (6.3-8.2)
[2025-02-17] MEDS: IPRATROPIUM/ALBUTEROL 3 ML NEB IH ×4 (08:00→22:57)
[2025-02-17] MEDS: BUDESONIDE 0.5MG/2ML NEB 0.5 MG IH ×2 (08:00→18:18)
--- NOTE | 2025-02-17 09:15 | EXP.PULM.CON ---
History of Present Illness History of present illness: Mr. Mays is a 74-year-old male greater than [id number] smoking history carries a diagnosis of COPD at baseline respiratory inhaler not using any oxygen supplementation presented to the ER with worsening respiratory distress and pulmonary was called for further evaluation and management. Admit gradually worsening respiratory distress. No sick contacts. Admits greenish productive phlegm that has been improving. [facility] Disclaimer: The information contained in this section may have been updated after the patient was seen, as this information can be updated by other users. Medical History (Updated 02/16/25 @ 12:45 by Katlyn Nair APRN) Implantable loop recorder present CVA (cerebral vascular accident) Renal cyst Kidney stone Afib HLD (hyperlipidemia) COPD (chronic obstructive pulmonary disease) Surgical History (Updated 02/14/25 @ 12:36 by Alondra Mancia, RN) History of AAA (abdominal aortic aneurysm) repair History of surgical closure of patent foramen ovale (PFO) Social History (Updated 02/14/25 @ 12:37 by Alondra Mancia RN) Smoking Status: Former smoker alcohol intake: never substance use type: denies use current occupational status: retired Travel in the last 8 weeks?: None Have you lived/traveled outside US in past 30 days?: No Contact w/someone who lives/traveled outside US past 30 days?: No Exposure to someone with infectious disease in past 14 days?: No Do you have a fever (greater than 100.4 F or 38 C)?: No Have you tested positive for COVID-19?: No Exposed to someone with COVID-19 in past 14 days?: No Do you have a sore throat?: No Do you have a cough?: No Do you have any weakness?: No Are you experiencing any nausea/vomitting?: No Do you have any diarrhea?: No Are you experiencing any unusual bleeding?: No Do you have any muscle aches/pain?: No Do you have any abdominal pain?: No Are you experiencing loss of taste or smell?: No Review of Systems Constitutional Constitutional: Reports anorexia, Reports body ache(s) and Reports fatigue Eyes Eyes: Denies eye discharge, Denies dry eyes, Denies irritation and Denies itchy eyes ENT Ears, Nose, Mouth, and Throat: Denies disequilibrium, Denies dizziness, Denies lip swelling and Denies throat swelling *Cardiovascular Cardiovascular: Reports dyspnea and Reports dyspnea on exertion *Respiratory Respiratory: Reports change in phlegm color, Reports chest congestion, Reports cough, Reports dyspnea, Reports dyspnea on exertion, Reports excessive phlegm production, Denies hemoptysis, Denies pain on inspiration, Denies pain with cough and Reports wheezing *Gastrointestinal Gastrointestinal: Denies abdominal pain, Denies belching and Denies cramping *Musculoskeletal Musculoskeletal: Reports back pain, Reports myalgias and Reports other (No small joint swelling or Pain) *Neurologic Neurologic: Denies confusion, Denies disequilibrium and Denies dizziness Psychiatric Psychiatric: Denies confusion Endocrine Endocrine: Reports fatigue and Denies heat intolerance Hematologic/Lymphatic Hematologic/Lymphatic: Denies easy bleeding and Denies lymphadenopathy Allergic/Immunologic Allergic/Immunologic: Denies itchy eyes, Denies lip swelling, Denies throat swelling and Reports wheezing Pulmonology Exam Inpatient Vital signs and Labs for Last 24 Hours: Temp Pulse Resp BP Pulse Ox O2 Del Method O2 Flow Rate 97.4 F L 115 H 22 156/94 H 92 L Nasal Cannula 3 02/17/25 08:00 02/17/25 08:01 02/17/25 08:00 02/17/25 08:00 02/17/25 08:01 02/17/25 08:07 02/17/25 08:07 FiO2 36 02/16/25 23:03 Laboratory Results - last 24 hr 02/17/25 05:40: WBC 12.7 H, RBC 4.61, Hgb 13.5 L D, Hct 42.1, MCV 91.3, MCH 28.9, MCHC 31.6 L, RDW 13.3, Plt Count 293, MPV 9.7, Neut % (Auto) 91.6 H, Lymph % (Auto) 3.8 L, Payette % (Auto) 3.8, Eos % (Auto) 0.0 L, Baso % (Auto) 0.2, Neut # (Auto) 11.6 H, Lymph # (Auto) 0.5 L, Payette # (Auto) 0.5, Eos # (Auto) 0.0, Baso # (Auto) 0.0, Sodium 133 L, Potassium 4.8, Chloride 94 L, Carbon Dioxide 30, Anion Gap 13.8, BUN 30 H, Creatinine 0.40 L, Estimated Creat Clear 47, Estimated GFR 211, Est GFR ( Amer) 255 D, Glucose 108 H D, Calcium 8.7, Magnesium 2.2, Total Bilirubin 0.8, AST 65 H, ALT 36, Alkaline Phosphatase 127 H, Total Protein 6.9, Albumin 3.7 D, Globulin 3.2, Albumin/Globulin Ratio 1.2 I & O for Labs for Last 24 Hours: Intake & Output 02/14/25 02/15/25 02/16/25 02/17/25 23:59 23:59 23:59 23:59 Intake Total 2380 / 2380 1750 / 1986 1117 / 1237 120 / 120 Output Total 0 / 0 200 / 200 3520 / 3970 550 / 550 Balance 2380 / 2380 1550 / 1787 -2403 / -2733 -430 / -430 Weight 110 lb 109 lb 15.818 oz 111 lb 4.8 oz 111 lb Microbiology Reports for the Last 24 Hours: Microbiology 02/14/25 09:24 Blood Blood Culture - Preliminary NO GROWTH AFTER 48 HOURS 02/14/25 08:40 Blood Blood Culture - Preliminary NO GROWTH AFTER 48 HOURS 02/14/25 16:59 Sputum - Expectorated Sputum Gram Stain - Final 02/14/25 16:59 Sputum - Expectorated Sputum Sputum Culture - Final Constitutional: Present severe distress Head: Present normocephalic and atraumatic ENT: Present normal exam, normal oropharynx and mucous membranes moist Neck: Present normal inspection and full ROM Respiratory: Present prolonged expiratory phase, respiratory distress and wheezes; Absent able to speak in complete sentences Cardiac: Present S1/S2, Tachycardia and radial pulses present GI: Present soft and distention; Absent tenderness or guarding Skin: Present intact; Absent cyanosis or jaundice Neuro: Present alert, awake and oriented x 3 Extremities: Present normal inspection; Absent clubbing or cyanosis Psychiatric: Present normal affect and cooperative Meds Home Medications and Allergies Home Medications ?Medication ?Instructions ?Recorded ?Confirmed ?Type albuterol sulfate 90 mcg/actuation 2 puff inhalation Q4-6H PRN 02/14/25 02/14/25 History aerosol inhaler Shortness Of Breath apixaban 5 mg tablet (Eliquis) 5 mg PO BID 02/14/25 02/14/25 History atorvastatin 80 mg tablet 80 mg PO HS 02/14/25 02/14/25 History budesonide 160 mcg-glycopyr 9 2 puff inhalation BID 02/14/25 02/14/25 History mcg-formot 4.8 mcg/actuation HFA inhaler (Breztri Aerosphere) diltiazem HCl 120 mg 120 mg PO HS 02/14/25 02/14/25 History capsule,extended release 24 hr New Prescriptions to Start Prescriptions: Allergies Allergy/AdvReac Type Severity Reaction Status Date / Time No Known Allergies Allergy Unverified 03/16/19 12:58 Results Laboratory Findings 02/17/25 05:40 02/17/25 05:40 PT/INR, D-dimer PT 11.4 seconds (10.1-12.5) 02/14/25 08:40 INR 1.03 (0.9-1.1) 02/14/25 08:40 Abnormal lab findings: Abnormal Labs 02/14/25 02/14/25 02/15/25 08:40 09:07 05:40 WBC 13.6 H D RBC 3.86 L Hgb 11.2 L D Hct 36.1 L MCHC 31.0 L Neut % (Auto) 85.3 H 89.6 H Lymph % (Auto) 9.6 L 4.1 L Eos % (Auto) 0.0 L Neut # (Auto) 7.9 H 12.2 H Lymph # (Auto) 0.6 L Payette # (Auto) VBG pCO2 64.8 H VBG HCO3 33.9 H VBG Total CO2 35.9 H VBG Base Excess 8.0 H VBG Lactic Acid 3.2 H Sodium Chloride 95 L Carbon Dioxide 37 H 34 H BUN 27 H 27 H Creatinine 0.60 L 0.50 L Glucose 122 H 139 H Lactate 2.8 H Calcium 8.3 L AST Alkaline Phosphatase NT-Pro-B Natriuret Pep 273 H Total Protein 6.0 L Albumin 3.1 L D Globulin 3.6 H Cholesterol 114 L LDL Cholesterol Direct 33.17 L Urine Protein 02/15/25 02/16/25 02/17/25 05:50 05:40 05:40 WBC 13.4 H 12.7 H RBC 3.93 L Hgb 11.7 L 13.5 L D Hct 36.5 L MCHC 31.6 L Neut % (Auto) 85.2 H 91.6 H Lymph % (Auto) 6.3 L 3.8 L Eos % (Auto) 0.0 L Neut # (Auto) 11.4 H 11.6 H Lymph # (Auto) 0.5 L Payette # (Auto) 1.1 H VBG pCO2 VBG HCO3 VBG Total CO2 VBG Base Excess VBG Lactic Acid Sodium 133 L Chloride 94 L Carbon Dioxide 36 H BUN 28 H 30 H Creatinine 0.50 L 0.40 L Glucose 108 H D Lactate Calcium AST 65 H Alkaline Phosphatase 127 H NT-Pro-B Natriuret Pep Total Protein 6.2 L Albumin 3.3 L Globulin Cholesterol LDL Cholesterol Direct Urine Protein 1+ A Assessment and Plan *Assessment and plan (1) Acute respiratory failure with hypoxia: Status: Acute Category: Medical Code(s): J96.01 - Acute respiratory failure with hypoxia (2) Left lower lobe pneumonia: Status: Acute Qualifiers: Pneumonia type: due to unspecified organism Qualified Code(s): J18.9 - Pneumonia, unspecified organism Category: Medical Code(s): J18.9 - Pneumonia, unspecified organism Plan Mr. Mays is a 74-year-old male greater than 33-[id number]-adbz smoking history carries a diagnosis of COPD at baseline respiratory inhaler not using any oxygen supplementation presented to the ER with worsening respiratory distress and pulmonary was called for further evaluation and management. CT chest upon admission LML and LLL infiltrates. No dense consolidative changes. Micronodular infiltrates. Emphyematous changes. COVID-19 and flu PCR panel negative. On examination severe respiratory distress. Not able to come talk in full sentences. Oxygen supplementation weaned to 1 L. Plan: DuoNebs every 4 hours along with Pulmicort every 12 scheduled Continue prednisone 40 mg oral daily Continue ceftriaxone. Add doxycycline 100 mg twice daily. Blood cultures and sputum cultures no growth so far. Continue oxygen supplementation to maintain O2 saturation of 90% and above, wean to 1 L nasal cannula. Incentive spirometry and flutter valve
[2025-02-17 09:25] LABS: Total Cells Counted 100
[2025-02-17 09:26] LABS: RBC Morphology Normal
[2025-02-17] MEDS: SACUBITRIL/VALSARTAN 24-26MG TABLET 1 EACH PO ×2 (10:06→21:19)
[2025-02-17] MEDS: DAPAGLIFLOZIN PROPANEDIOL 10 MG TABLET PO (10:07)
[2025-02-17] MEDS: METOPROLOL SUCCINATE XL 25MG TABLET 12.5 MG PO (10:07)
[2025-02-17] MEDS: APIXABAN 5MG TABLET 5 MG PO ×2 (10:09→21:19)
--- NOTE | 2025-02-17 10:51 | HMH.OTEV ---
OT Evaluation Rehab OT IP Evaluation Start: 02/14/25 14:34 Freq: ONCE Status: Complete Protocol: [facility]15[facility]25 10:[facility] (Rec: 02/15/25 10:24 [facility] [id number]) Rehab OT IP Assessment Subjective History Pt oriented x3 on arrival. Pt agreeable to engage in therapy evaluation. Pt's present and supportive during therapy session. Pt admitted on 02/14/25 due to Acute hypoxic respiratory failure. History and physical: Mr. Mays is a 74-year-old male who presented to the emergency department with complaints of shortness of breath. He has a primary medical history of COPD, TIA, paroxysmal atrial fibrillation, and PFO repair. He complains of shortness of breath over the last several weeks, worse this morning. He states that he could not catch his breath and could not walk across the room so he called EMS. He stated in the ED that he was feeling lightheaded, but denied chest pain, abdominal pain, nausea, vomiting, diarrhea. He does state that he has been running fevers at home, unsure of temperature. Patient was found to be hypoxic upon arrival, O2 saturation in the 70s per EMS. Patient was placed on nonrebreather and O2 saturation became greater than 90% . Initially was put on BiPAP due to concerns for hypercapnic respiratory failure, VBG was assuring and patient was transition to nasal cannula. He was also given DuoNebs, Solu-Medrol, magnesium, and azithromycin and Rocephin IV. Patient's O2 improved and was tolerating 3 L nasal cannula on admission. Subjective Prior to being in the hospital, pt lived at home with his . Pt claims normally he is independent with all ADLs. However, he reports having difficulty with bathing. Pt reports extended time with bathing due to difficulty with breathing. At this time, he stands to take showers and has to turn water on and off due to humidity/steam from shower and SOB. Therapist did recommend shower chair and hand held shower in order for safety and energy conservation. Pt quickly refused both recommendations reporting he is not ready for that and does not want AE. He usually does not use any type of AE during functional transfers. He is not on oxygen at home. He is also independent with light IADLs. He still drives. Pt's completes heavier IADLs. Objective Patient Orientation Person,Place,Birthday Right Upper WFL Extremity Gross ROM Left Upper Extremity WFL Gross ROM Bed Mobility bed mobility-scooting,bed mobility - supine/sit Assist Level Supervision/Stand by Transfer Training Sit/Stand Transfer Assist Level Supervision/Stand by Chair Transfer Supervision/Stand by Ability Chair Transfer Sit to/from Ambulatory Technique Lower Body Dressing Standby Assistance Ability Performing Toilet Standby Assistance Hygiene Ability Overall Commode/ Standby Assistance Toilet Transfer Ability Commode/Toilet Sit to/from Ambulatory Transfer Technique Rehab OT IP prob,goals,plan Problems Date of Evaluation: 02/15/25 Rehab Potential Rehab Potential Innapropriate for Skilled Therapy Discharge Plan OT Discharge Plan Pt appears to be at his baseline with functional transfers and ADL independence. Pt can return home with once he is medically stable per physician. Therapist does recommend HH OT evaluation when returning home in order to assist with environmental adaptations to assist with energy conservation. Eval Complexity Eval Charge Codes 07796 - Moderate Complexity Rehab OT IP Evaluation Start: 02/17/25 09:05 Freq: ONCE Status: Active Protocol: [facility]25 10:[facility] (Rec: 02/17/25 10:50 [facility] [id number]) Rehab OT IP Assessment Subjective History Second evaluation; re-assessment completed today due to concerns reported by pt's . verbalizes concerns of inability to care for patient when returning home, due to a decline in functional ability of patient. Both patient and are requesting short term rehab due to his decreased endurance and functional ability. Therapist did observe a decline since initial evaluation with lower body dressing and functional transfers. He required moderate assistance with upper and lower body dressing and toileting hygiene. Pt required cga/min assist to complete functional transfer of ~25 feet from bathroom to bed. Multiple rest breaks provided due to difficulty with breathing. Pt oriented x3 on arrival. Pt agreeable to engage in therapy evaluation. Pt's present and supportive during therapy session. Pt admitted on 02/14/25 due to Acute hypoxic respiratory failure. History and physical: Mr. Mays is a 74-year-old male who presented to the emergency department with complaints of shortness of breath. He has a primary medical history of COPD, TIA, paroxysmal atrial fibrillation, and PFO repair. He complains of shortness of breath over the last several weeks, worse this morning. He states that he could not catch his breath and could not walk across the room so he called EMS. He stated in the ED that he was feeling lightheaded, but denied chest pain, abdominal pain, nausea, vomiting, diarrhea. He does state that he has been running fevers at home, unsure of temperature. Patient was found to be hypoxic upon arrival, O2 saturation in the 70s per EMS. Patient was placed on nonrebreather and O2 saturation became greater than 90% . Initially was put on BiPAP due to concerns for hypercapnic respiratory failure, VBG was assuring and patient was transition to nasal cannula. He was also given DuoNebs, Solu-Medrol, magnesium, and azithromycin and Rocephin IV. Patient's O2 improved and was tolerating 3 L nasal cannula on admission. Subjective Prior to being in the hospital, pt lived at home with his . Pt claims normally he is independent with all ADLs. However, he reports having difficulty with bathing. Pt reports extended time with bathing due to difficulty with breathing. At this time, he stands to take showers and has to turn water on and off due to humidity/steam from shower and SOB. Therapist did recommend shower chair and hand held shower in order for safety and energy conservation. Pt quickly refused both recommendations reporting he is not ready for that and does not want AE. He usually does not use any type of AE during functional transfers. He is not on oxygen at home. He is also independent with light IADLs. He still drives. Pt's completes heavier IADLs. Objective Patient Orientation Person,Place,Birthday Right Upper WFL Extremity Gross ROM Left Upper Extremity WFL Gross ROM Transfer Training Sit/Stand Transfer Assist Level Minimal x 1 (25% assist) Lower Body Dressing Moderate Assistance Ability Upper Body Dressing Moderate Assistance Ability Performing Toilet Moderate Assistance Hygiene Ability Overall Commode/ Minimal Assistance Toilet Transfer Ability Commode/Toilet Sit to/from Ambulatory Transfer Technique Decrease in Yes Endurance Rehab OT IP prob,goals,plan Problems Date of Evaluation: 02/17/25 OT IP Problems Bed Mobility,Transfers,Balance,Self care,Safety Rehab Potential Rehab Potential Good Equipment Needs Assistive Devices Rolling / Wheeled Walker Plan OT intervention Plan Bed Mobility,Transfers,Balance,Self care,Safety, Therapeutic Exercise OT Plan Frequency Daily Duration LOS Discharge Goals Bed Mobility Ability Standby Assistance Sit to Stand Chair Contact Guard/Hand Hold Transfer Ability Chair Transfer Supervision/Stand by,Contact Guard/Hand Hold Ability Chair Transfer Sit to/from Ambulatory Technique Lower Body Dressing Minimal Assistance Ability Upper Body Dressing Minimal Assistance Ability Performing Toilet Contact Guard Hygiene Ability Overall Commode/ Contact Guard Toilet Transfer Ability Commode/Toilet Sit to/from Ambulatory Transfer Technique Discharge Plan OT Discharge Plan Pt will continue to be seen for OT services while at [facility]. Therapist recommends short term rehab at SNF following discharge. Continued skilled therapy services will assist with decreasing caregiver burden, strength, safety, endurance, ADL independence, and functional transfers to reach PLOF. Eval Complexity Eval Charge Codes 26289 - Moderate Complexity PHYSICIAN CERTIFICATION: I certify the specified therapy services for Hayes Ml Davon are required, authorized, and reviewed every 30 days.
--- NOTE | 2025-02-17 10:56 | XR_ITS ---
FINAL REPORT CLINICAL HISTORY: SOA COMPARISON: 02/14/2025 FINDINGS: A portable view of the chest was obtained. Cardiac and mediastinal silhouettes are within normal limits. Underlying emphysema is identified. There has been no significant interval change in the left basilar opacity concerning for pneumonia. There is no pleural effusion or pneumothorax. IMPRESSION: No change in the left basilar opacity concerning for pneumonia. Reviewed, Interpreted and Dictated by Tori Nixon MD Transcribed by Sally Nguyen Authenticated and [facility]
--- NOTE | 2025-02-17 10:57 | HMH.IPREAS ---
Rehab Re-assessment Rehab IP Re-assessment Start: 02/17/25 09:54 Freq: Status: Active Protocol: Document 02/17/25 09:54 [facility] (Rec: 02/17/25 10:57 [facility] [id number]) E-signed By Sveta Holt, PT Subjective Subjective Subjective Pt and report recent functional decline. Pt reports increased labored breathing. Rehab IP PT Reassessment Eval Objective Appearance Patient Behavior Appropriate,Cooperative Difficulty following none instructions Speech Pattern Clear Ambulation Patient Able to Yes Ambulate Ambulation Observation IP General Gait No Deviations/Normal Pattern Observation Ambulation Distance 16 (feet) Ambulation Assistive None Device Ambulation Ability Contact Guard/Hand Hold Balance Ability to Arise Able, uses arms to help Sitting Balance Steady, safe Standing Balance Steady, wide stance Dynamic Sitting Good Balance Ability Dynamic Standing Fair Balance Ability Transfers Bed Transfer Ability Supervision/Stand by Sit to Stand Bed Minimal x 1 (25% assist) Transfer Ability Rehab IP PT Reassessment of problems, goals, plan Problems Date of Evaluation: 02/17/25 PT IP Problems Transfers,Gait,Balance,Other Other Pt Problem endurance Rehab Potential Rehab Potential Good Plan PT Intervention Plan Transfers,Gait,Balance,Safety,Therapeutic Exercise Other Intervention 1-2 times Plan PT Plan Frequency Daily Duration LOS Discharge Goals Bed Transfer Ability Independent Sit to Stand Chair Independent Transfer Ability Ambulation Assistive Rolling Walker Device Ambulation Distance 50 (feet) Discharge Plan PT Discharge Plan Since initial PT evaluation, pt has demo'd a mild decrease in functional mobility and decreased activity tolerance. Pt able to demo safe in-room ambulation without AD but demo'd reports of SOB throughout task. Pt with one LOB during static standing requiring Min A to correct. PT recommending skilled IP rehab upon d/c to address impaired endurance, improve safety, and decrease caregiver burden upon d/c from [facility]. Pt would benefit from skilled acute care rehab to address deficits. G -code Required No IP Reassessment Inpatient Rehab Yes Reassessment Performed PHYSICIAN CERTIFICATION: I certify the specified therapy services for Hayes Mays are required, authorized, and reviewed every 30 days.
--- NOTE | 2025-02-17 12:01 | SW/DCPLANNER ---
Addendum entered by Denise Andersen 02/18/25 15:06: I have updated Karthik w/ [facility] the plan for this patient is to discharge to [facility] tomorrow SNF level of care pending no setbacks. Addendum entered by Denise Andersen 02/17/25 14:46: [facility] and [facility] are both willing to accept patient. Patient has chose [facility] at this time. CM updated April w/ [facility]. Per MD patient could be ready for discharge tomorrow. CM will continue to follow up. Original Note: Patient/ expressed an interest in placement at time of discharge. I spoke w/ patient and his regarding placement and the qualifications. Patient is interested in [facility] or [facility]. Patient expressed if these facilities could not accept he would be willing to go to [facility], [facility] or [facility]. CM will continue to follow up w/ patient and facilities. Discharge date is unknown at this time.
[2025-02-17] MEDS: DOXYCYCLINE HYCLATE 100 MG in 0.9 % SODIUM CHLORIDE 250 ML 166.67 MG IV (12:44)
--- NOTE | 2025-02-17 14:33 | P.PN_ITS ---
<Statement entered by Jewel Gonzalez MD - 02/17/25 16:21> Rounded on patient after nurse practitioner. Personally examined and interviewed patient. Agree with exam findings and care plan as documented. Subjective *Date: 02/17/25 *Time: 14:33 Interval history: Mr. Mays is doing well this morning, still complaining of significant shortness of breath. More so with ambulation and exertion. Currently on 3 L nasal cannula. Echo from yesterday showed EF of 45%, grade 2 diastolic dysfunction. Patient started on Entresto, Farxiga, metoprolol. Stopped home diltiazem. Lungs diminished. Pulmonology consulted recommended adding doxycycline twice daily. Ceftriaxone daily continuing. Plans for discharge to SNF facility tomorrow. Medical Exam Vital signs and Labs for Last 24 Hours: Vital Signs Temp Pulse Pulse Resp BP Pulse Ox O2 Del Method 02/17/25 13:45 87 02/17/25 13:45 80 02/17/25 12:00 111 H 18 157/96 H 93 L Nasal Cannula 02/17/25 08:07 Nasal Cannula 02/17/25 08:01 115 H 02/17/25 08:01 115 H 02/17/25 08:01 92 L Nasal Cannula 02/17/25 08:00 97.4 F L 101 H 22 156/94 H 95 Nasal Cannula 02/17/25 08:00 3 L Nasal Cannula 02/17/25 07:00 Nasal Cannula 02/17/25 05:00 Nasal Cannula 02/17/25 04:00 98.0 F 100 H 20 130/82 96 Nasal Cannula 02/17/25 03:00 Nasal Cannula 02/17/25 01:00 Nasal Cannula 02/17/25 00:00 97.9 F 105 H 18 127/76 98 02/16/25 23:03 99 Nasal Cannula 02/16/25 23:00 Nasal Cannula 02/16/25 23:00 100 H 02/16/25 23:00 102 H 02/16/25 21:00 Nasal Cannula 02/16/25 20:00 97 Nasal Cannula 02/16/25 20:00 97.6 F 107 H 18 135/77 96 02/16/25 18:59 97 Nasal Cannula 02/16/25 18:57 91 H 02/16/25 18:57 96 H 02/16/25 18:10 Nasal Cannula 02/16/25 16:04 Nasal Cannula 02/16/25 16:00 98 F 96 H 18 148/76 H 97 Nasal Cannula O2 Flow Rate FiO2 02/17/25 13:45 02/17/25 13:45 02/17/25 12:00 02/17/25 08:07 3 02/17/25 08:01 02/17/25 08:01 02/17/25 08:01 4 02/17/25 08:00 3 02/17/25 08:00 02/17/25 07:00 3 02/17/25 05:00 3 02/17/25 04:00 02/17/25 03:00 3 02/17/25 01:00 3 02/17/25 00:00 02/16/25 23:03 4 36 02/16/25 23:00 3 02/16/25 23:00 02/16/25 23:00 02/16/25 21:00 3 02/16/25 20:00 3 02/16/25 20:00 02/16/25 18:59 3 02/16/25 18:57 02/16/25 18:57 02/16/25 18:10 02/16/25 16:04 3 02/16/25 16:00 3 Intake and Output 02/16/25 02/17/25 02/17/25 23:59 07:59 15:59 Intake Total 240 / 1237 120 / 220 100 / 220 Output Total 1820 / 3970 550 / 850 300 / 850 Balance -1580 / -2733 -430 / -630 -200 / -630 Intake: Intake, Oral Amount 240 / 1137 120 / 120 Intake, Total IV Amount 100 / 100 Ceftriaxone Sodium 2 gm In 0.9 100 / 100 % Sodium Chloride 100 ml @ 200 mls/hr IV Q24H [facility] Rx#:[id number] Output: Output, Urine Amount 1820 / 3970 550 / 850 300 / 850 Other: Number of Unmeasured Voids 0 0 0 Number of Bowel Movements 1 Weight 50.349 kg Patient Weight 02/17/25 23:59 Weight 50.349 kg Laboratory Results - last 24 hr 02/17/25 05:40: WBC 12.7 H, RBC 4.61, Hgb 13.5 L D, Hct 42.1, MCV 91.3, MCH 28.9, MCHC 31.6 L, RDW 13.3, Plt Count 293, MPV 9.7, Neut % (Auto) 91.6 H, Lymph % (Auto) 3.8 L, [place] % (Auto) 3.8, Eos % (Auto) 0.0 L, Baso % (Auto) 0.2, Neut # (Auto) 11.6 H, Lymph # (Auto) 0.5 L, [place] # (Auto) 0.5, Eos # (Auto) 0.0, Baso # (Auto) 0.0, Total Counted 100, Neutrophils % (Manual) 96 H, Lymphocytes % (Manual) 2 L, Monocytes % (Manual) 2, Platelet Estimate Normal, RBC Morphology Normal, Sodium 133 L, Potassium 4.8, Chloride 94 L, Carbon Dioxide 30, Anion Gap 13.8, BUN 30 H, Creatinine 0.40 L, Estimated Creat Clear 47, Estimated GFR 211, Est GFR ( Amer) 255 D, Glucose 108 H D, Calcium 8.7, Magnesium 2.2, Total Bilirubin 0.8, AST 65 H, ALT 36, Alkaline Phosphatase 127 H, Total Protein 6.9, Albumin 3.7 D, Globulin 3.2, Albumin/Globulin Ratio 1.2 I & O for Labs for Last 24 Hours: Intake & Output 02/14/25 02/15/25 02/16/25 02/17/25 23:59 23:59 23:59 23:59 Intake Total 2380 / 2380 1750 / 1987 1117 / 1237 220 / 220 Output Total 0 / 0 200 / 200 3520 / 3970 850 / 850 Balance 2380 / 2380 1550 / 1787 -2403 / -2733 -630 / -630 Weight 49.895 kg 49.89 kg 50.485 kg 50.349 kg Constitutional: Present mild distress, thin, chronically ill appearing and cooperative Head: Present atraumatic Eyes: Present as per HPI ENT: Present normal exam Neck: Present normal inspection Respiratory: Present diminished air movement, able to speak in complete sentences and symmetric chest movement; Absent wheezes or crackles Cardiac: Present Reg Rate and Rhythm; Absent No Murmur GI: Present soft and normal bowel sounds; Absent distention or tenderness Rectal (male): Present deferred (male): Present deferred Extremities: Present normal inspection and full ROM; Absent edema Skin: Present intact and dry; Absent rash Neuro: Present Grossly Intact, alert, awake and oriented x 3 Assessment and Plan *Assessment and plan (1) Acute respiratory failure with hypoxia: Status: Acute Category: Medical Code(s): J96.01 - Acute respiratory failure with hypoxia (2) Sepsis: Status: Acute Qualifiers: Sepsis acute organ dysfunction status: with acute organ dysfunction Sepsis type: sepsis due to unspecified organism Severe sepsis acute organ dysfunction type: acute respiratory failure Category: Medical Code(s): A41.9 - Sepsis, unspecified organism (3) Left lower lobe pneumonia: Status: Acute Qualifiers: Pneumonia type: due to unspecified organism Qualified Code(s): J18.9 - Pneumonia, unspecified organism Category: Medical Code(s): J18.9 - Pneumonia, unspecified organism (4) COPD (chronic obstructive pulmonary disease): Status: Acute Category: Medical Code(s): J44.9 - Chronic obstructive pulmonary disease, unspecified (5) Paroxysmal A-fib: Status: Acute Category: Medical Code(s): I48.0 - Paroxysmal atrial fibrillation (6) History of CVA (cerebrovascular accident): Status: Acute Category: Medical Code(s): Z86.73 - Personal history of transient ischemic attack (TIA), and cerebral infarction without residual deficits (7) Severe protein-calorie malnutrition: Status: Acute Category: Medical Code(s): E43 - Unspecified severe protein-calorie malnutrition (8) Cachexia: Status: Acute Category: Medical Code(s): R64 - Cachexia Plan Mr. Mays is a 74-year-old male who presented to the emergency department with complaints of shortness of breath. He has a primary medical history of COPD, TIA, paroxysmal atrial fibrillation, and PFO repair. He complains of shortness of breath over the last several weeks, worse this morning. He states that he could not catch his breath and could not walk across the room so he called EMS. He stated in the ED that he was feeling lightheaded, but denied chest pain, abdominal pain, nausea, vomiting, diarrhea. He does state that he has been running fevers at home, unsure of temperature. Patient was found to be hypoxic upon arrival, O2 saturation in the 70s per EMS. Patient was placed on nonrebreather and O2 saturation became greater than 90%. Initially was put on BiPAP due to concerns for hypercapnic respiratory failure, VBG was assuring and patient was transition to nasal cannula. He was also given DuoNebs, Solu- Medrol, magnesium, and azithromycin and Rocephin IV. I personally reviewed his chest x-ray which showed a left lower lobe consolidation suspect for pneumonia. I was then consulted by the emergency department physician who requested admission, I agreed to admit the patient to the hospital medicine service. Plan of care as follows: #Acute respiratory failure with hypoxia #Sepsis #Left lower lobe pneumonia ? Workup in the emergency department was significant for left lower lobe pneumonia. Patient met sepsis criteria with tachypnea, tachycardia, and left lower lobe pneumonia. Patient received full sepsis bolus in the ED. He also states that he was febrile at home, afebrile during my assessment. Patient has new oxygen requirement of 3 L, weaned to room air. Patient requiring O2 with exertion, when ambulating patient's O2 dropped to 84%. ?Pulmonology consulted due to continued increase in work of breathing despite normal O2 saturation. Pulmonology recommended adding doxycycline 100 mg twice daily and continued use of incentive spirometer and flutter valve. Increase DuoNebs to every 4 hours scheduled, Pulmicort twice daily. Patient is also receiving prednisone 40 mg daily. Patient completed 3-day course of azithromycin 500 mg. ?Repeat chest x-ray shows no change in left basilar opacity concerning for pneumonia. Underlying emphysema is identified. ? Laboratory workup, WBC 12.7, no anemia, no electrolyte abnormalities, BUN slightly elevated at 30, creatinine 0.40. Lactate originally 2.8, trended downward to 2.1. BNP slightly elevated at 273. Patient assessment reveals no volume overload. Troponins remain negative. Procalcitonin 0.077. TSH within normal limits, 0.97. Respiratory swab was negative for flu and COVID. Patient continued to feel short of breath, echo obtained; mildly reduced LVEF 45%, grade 2 diastolic dysfunction, elevated RVSP of 50-55. 1 dose of IV Lasix 40 mg given, stop diltiazem daily as this can contribute to worsening heart failure. Ini tiate metoprolol succinate 12.5 daily, Farxiga 10 mg daily, and Entresto twice daily for goal-directed therapy. ? CBC, CMP, magnesium ordered for the a.m. Blood cultures show no growth after 48 hours, sputum culture Gram stain shows normal respiratory lucho. #COPD #Emphysema ? Patient does have a diagnosis of COPD, former smoker, uses Breztri 2 puffs twice daily. Transition patient from Breztri inhaler twice daily to Pulmicort twice daily. ? DuoNebs ordered every 4 hours scheduled. Patient still complains of shortness of breath, worse with activity. Feels as though he is gasping for air when he tries to ambulate. Will initiate steroids for continued shortness of air, Solu- Medrol 40 mg IV given once, continue prednisone 40 mg p.o. x 5 days. Will also order albuterol inhaler every 4 hours as needed for shortness of breath between DuoNeb treatments. #Paroxysmal A-fib #History of CVA ? Patient states that he has a history of paroxysmal A-fib, Follows with [facility]. Patient currently on diltiazem 120 mg at bedtime and Eliquis 5 mg twice daily. Patient does have a loop recorder in place. Patient states he had a CVA in 2018 where it was determined he had a PFO which was repaired. Patient has had no episodes of A-fib that he is aware of since that time. ? Will continue patient's Eliquis 5 mg twice daily, atorvastatin 80 mg at bedtime. #Severe protein?calorie malnutrition #Cachexia ? Patient meets criteria for severe protein?calorie malnutrition. Patient seen by nutrition consulted who recommended protein supplementation. Patient does state that he has lost 40 pounds in the last year or so. He states he has had a recent colonoscopy (in January). Suspect cachexia related to emphysema/COPD changes. ? PT/OT evaluation recommendation SNF facility for difficulty with endurance, strength, safety, ADL independence, functional transfers. Full code VTE?Eliquis 5 mg twice daily Regular diet Ambulate as tolerated
[2025-02-17] MEDS: DOXYCYCLINE HYCLATE 100 MG in 0.9 % SODIUM CHLORIDE 250 ML 167 MG IV (21:18)
[2025-02-17] MEDS: ATORVASTATIN 40MG TABLET 80 MG PO (21:19)
[2025-02-18] VITALS (12 sets, daily range): BP systolic 108–140; BP diastolic 68–90; PULSE 75–121; RESP 16–20; TEMP 36.2–36.9; O2SAT 86–99; BMI 16.7
[2025-02-18] MEDS: IPRATROPIUM/ALBUTEROL 3 ML NEB IH ×6 (01:59→21:01)
--- NOTE | 2025-02-18 03:54 | PC.NURSE ---
Pt is resting in bed. His is in the room with him. PT is currently on 2.5 L N/C of Oxygen. Pt is Alert and Oriented x4. He has the Electrolyte Protocol in Place. Pt is on a Regular Diet. Call light is with in reach. Not c/O pain at this time Pt is resting. LITTLE SMILEY RN
[2025-02-18] MEDS: BUDESONIDE 0.5MG/2ML NEB 0.5 MG IH ×2 (06:12→18:48)
[2025-02-18 06:18] LABS: Hematocrit 44.5 % (42.0-52.0); Hemoglobin 14.3 g/dL (14.1-18.0); Immature Granulocytes % 0.6 %; Mean Corpuscular HGB Conc 32.1 g/dL (31.8-35.4); Mean Corpuscular Hemoglobin 29.4 pg (27.0-31.2); Mean Corpuscular Volume 91.4 fl (80-94); Nucleated Red Blood Cells % 0 %; Platelet Count 331 K/mm3 (142-424); Red Blood Count 4.87 M/mm3 (4.60-6.20); Red Cell Distribution Width-SD 44.9 fL; White Blood Count 17.0 K/mm3 (4.8-10.8)
[2025-02-18 06:38] LABS: Albumin Level 3.5 g/dl (3.5-5.0); Chloride 95 mmol/L (98-107)
[2025-02-18 06:39] LABS: Potassium 4.2 mmoL/L (3.5-5.1)
[2025-02-18 06:41] LABS: Bilirubin,Total 0.6 mg/dl (0.2-1.3); Creatinine Clearance Estimated 47 mL/min (50-200); Estimated Glomerular Filt Rate 132 ml/min (>60); GFR (African American) 160 ML/MIN (>60)
[2025-02-18 06:42] LABS: Glucose 83 mg/dl (74-100)
[2025-02-18 06:55] LABS: Sodium 137 mmol/L (136-145)
[2025-02-18 06:58] LABS: Alanine Aminotransferase 39 U/L (12-78); Albumin/Globulin Ratio 1.1 (1.1-1.8); Alkaline Phosphatase 110 U/L (38-126); Anion Gap 10.2 mEq/L (5-15); Aspartate Amino Transferase 68 U/L (17-59); Carbon Dioxide 36 mmol/L (22.0-30.0); Globulin 3.3 g/dL (1.3-3.2); Total Protein,Serum 6.8 g/dl (6.3-8.2)
[2025-02-18 06:59] LABS: Calcium 9.0 mg/dl (8.4-10.2)
[2025-02-18 07:03] LABS: Blood Urea Nitrogen 38 mg/dl (9-20)
[2025-02-18 07:04] LABS: Creatinine,Serum 0.60 mg/dl (0.66-1.25)
--- NOTE | 2025-02-18 09:25 | EXP.PHA.PN ---
Subjective *Date: 02/18/25 *Time: 09:25 Medical Exam Vital signs and Labs for Last 24 Hours: Vital Signs Temp Pulse Pulse Pulse Resp BP Pulse Ox 02/18/25 07:36 98.1 F 113 H 18 125/79 94 L 02/18/25 06:12 111 H 02/18/25 06:12 110 H 02/18/25 06:12 95 02/18/25 05:00 02/18/25 04:00 97.2 F L 82 16 108/68 L 97 02/18/25 03:00 02/18/25 02:00 92 H 02/18/25 02:00 92 H 02/18/25 01:00 02/18/25 00:00 98.0 F 75 18 113/73 99 02/17/25 23:00 02/17/25 22:58 96 H 02/17/25 22:58 94 H 02/17/25 21:00 02/17/25 20:00 98.0 F 112 H 20 147/84 H 95 02/17/25 20:00 95 02/17/25 18:35 02/17/25 18:19 112 H 02/17/25 18:19 110 H 02/17/25 18:19 93 L 02/17/25 16:00 97.5 F L 103 H 20 134/89 97 02/17/25 15:00 02/17/25 13:45 87 02/17/25 13:45 80 02/17/25 13:00 02/17/25 12:00 111 H 18 157/96 H 93 L 02/17/25 11:00 O2 Del Method O2 Flow Rate 02/18/25 07:36 Nasal Cannula 2 02/18/25 06:12 02/18/25 06:12 02/18/25 06:12 Nasal Cannula 2 02/18/25 05:00 Nasal Cannula 2.5 02/18/25 04:00 Nasal Cannula 2.5 02/18/25 03:00 Nasal Cannula 2.5 02/18/25 02:00 02/18/25 02:00 02/18/25 01:00 Nasal Cannula 2.5 02/18/25 00:00 Nasal Cannula 2.5 02/17/25 23:00 Nasal Cannula 2.5 02/17/25 22:58 02/17/25 22:58 02/17/25 21:00 Nasal Cannula 2.5 02/17/25 20:00 2.5 02/17/25 20:00 Nasal Cannula 2.5 02/17/25 18:35 Nasal Cannula 2.5 02/17/25 18:19 02/17/25 18:19 02/17/25 18:19 Nasal Cannula 2.5 02/17/25 16:00 Nasal Cannula 2.5 02/17/25 15:00 Nasal Cannula 3 02/17/25 13:45 02/17/25 13:45 02/17/25 13:00 Nasal Cannula 2.5 02/17/25 12:00 Nasal Cannula 02/17/25 11:00 Nasal Cannula 2.5 Intake and Output 02/17/25 02/18/25 02/18/25 23:59 07:59 15:59 Intake Total 250 / 840 120 / 120 Output Total 200 / 1400 450 / 450 Balance 50 / -560 -330 / -330 Intake: Intake, Oral Amount 120 / 120 Intake, Total IV Amount 250 / 600 Doxycycline Hyclate 100 mg In 0 250 / 500 .9 % Sodium Chloride 250 ml @ 166.667 mls/hr IV Q12 [facility] Rx#: [id number] Output: Output, Urine Amount 200 / 1400 450 / 450 Other: Number of Unmeasured Voids 0 1 Number of Bowel Movements 1 Weight 47.128 kg Patient Weight 02/18/25 23:59 Weight 47.128 kg Laboratory Results - last 24 hr 02/17/25 05:40: Total Counted 100, Neutrophils % (Manual) 96 H, Lymphocytes % (Manual) 2 L, Monocytes % (Manual) 2, Platelet Estimate Normal, RBC Morphology Normal 02/18/25 05:40: WBC 17.0 H D, RBC 4.87, Hgb 14.3, Hct 44.5, MCV 91.4, MCH 29.4, MCHC 32.1, RDW 13.2, Plt Count 331, MPV 10.0, Neut % (Auto) 87.2 H, Lymph % (Auto) 4.7 L, [place] % (Auto) 7.4, Eos % (Auto) 0.0 L, Baso % (Auto) 0.1, Neut # (Auto) 14.8 H, Lymph # (Auto) 0.8, [place] # (Auto) 1.3 H, Eos # (Auto) 0.0, Baso # (Auto) 0.0, Sodium 137, Potassium 4.2, Chloride 95 L, Carbon Dioxide 36 H, Anion Gap 10.2, BUN 38 H D, Creatinine 0.60 L D, Estimated Creat Clear 47, Estimated GFR 132, Est GFR ( Amer) 160 D, Glucose 83 D, Calcium 9.0, Total Bilirubin 0.6, AST 68 H, ALT 39, Alkaline Phosphatase 110, Total Protein 6.8, Albumin 3.5, Globulin 3.3 H, Albumin/Globulin Ratio 1.1 I & O for Labs for Last 24 Hours: Intake & Output 02/15/25 02/16/25 02/17/25 02/18/25 23:59 23:59 23:59 23:59 Intake Total 1750 / 1987 1117 / 1237 720 / 840 120 / 120 Output Total 200 / 200 3520 / 3970 1050 / 1400 450 / 450 Balance 1550 / 1787 -2403 / -2733 -330 / -560 -330 / -330 Weight 49.89 kg 50.485 kg 50.349 kg 47.128 kg Microbiology Reports for the Last 24 Hours: Microbiology 02/14/25 08:40 Blood Blood Culture - Preliminary NO GROWTH AFTER 4 DAYS The patient's infection will respond to the chosen ABx?: Yes Is the patient receiving the right drug, dose, and route?: Yes Could a more targeted ABx be ordered?: No (SPUTUM NORMAL JENIFER AND BLOOD CX NO GROWTH AT 48 HOURS)
--- NOTE | 2025-02-18 09:35 | ECG_ITS ---
APPROVED REPORT Exam: Resting ECG HR:105 bpm ECG Measurements Heart Rate 105 AXES NE 123 P 88 QRSd 90 QRS 83 QT 317 T 75 QTc 378 Conclusion SINUS TACHYCARDIA RIGHT ATRIAL ENLARGEMENT [0.3mV P-WAVE] ABNORMAL ECG UNCONFIRMED REPORT Electronically signed by : Dinh Chaves MD 02/18/2025 21:57:59
[2025-02-18] MEDS: DAPAGLIFLOZIN PROPANEDIOL 10 MG TABLET PO (10:48)
[2025-02-18] MEDS: SACUBITRIL/VALSARTAN 24-26MG TABLET 1 EACH PO ×2 (10:48→20:36)
[2025-02-18] MEDS: DOXYCYCLINE HYCLATE 100 MG in 0.9 % SODIUM CHLORIDE 250 ML 167 MG IV (10:49)
[2025-02-18] MEDS: APIXABAN 5MG TABLET 5 MG PO ×2 (10:49→20:36)
[2025-02-18] MEDS: METOPROLOL SUCCINATE XL 25MG TABLET 12.5 MG PO ×2 (10:49→12:32)
--- NOTE | 2025-02-18 11:11 | PC.NURSE ---
O2 sat 86% on RA at rest
--- NOTE | 2025-02-18 11:20 | P.PN_ITS ---
Subjective *Date: 02/18/25 *Time: 12:42 Interval history: No acute respiratory vents overnight. Patient denies any significant improvement in his respiratory symptoms. No new complaints. Pulmonology Exam Inpatient Vital signs and Labs for Last 24 Hours: Temp Pulse Resp BP Pulse Ox O2 Del Method O2 Flow Rate 98.1 F 119 H 18 125/79 86 L Nasal Cannula 2.5 02/18/25 07:36 02/18/25 10:00 02/18/25 07:36 02/18/25 07:36 02/18/25 11:00 02/18/25 11:08 02/18/25 11:08 FiO2 36 02/16/25 23:03 Laboratory Results - last 24 hr 02/18/25 05:40: WBC 17.0 H D, RBC 4.87, Hgb 14.3, Hct 44.5, MCV 91.4, MCH 29.4, MCHC 32.1, RDW 13.2, Plt Count 331, MPV 10.0, Neut % (Auto) 87.2 H, Lymph % (Auto) 4.7 L, [place] % (Auto) 7.4, Eos % (Auto) 0.0 L, Baso % (Auto) 0.1, Neut # (Auto) 14.8 H, Lymph # (Auto) 0.8, [place] # (Auto) 1.3 H, Eos # (Auto) 0.0, Baso # (Auto) 0.0, Sodium 137, Potassium 4.2, Chloride 95 L, Carbon Dioxide 36 H, Anion Gap 10.2, BUN 38 H D, Creatinine 0.60 L D, Estimated Creat Clear 47, Estimated GFR 132, Est GFR ( Amer) 160 D, Glucose 83 D, Calcium 9.0, Total Bilirubin 0.6, AST 68 H, ALT 39, Alkaline Phosphatase 110, Total Protein 6.8, Albumin 3.5, Globulin 3.3 H, Albumin/Globulin Ratio 1.1 Temp Pulse Resp BP Pulse Ox O2 Del Method O2 Flow Rate 97.4 F L 115 H 22 156/94 H 92 L Nasal Cannula 3 02/17/25 08:00 02/17/25 08:01 02/17/25 08:00 02/17/25 08:00 02/17/25 08:01 02/17/25 08:07 02/17/25 08:07 FiO2 36 02/16/25 23:03 Laboratory Results - last 24 hr 02/17/25 05:40: WBC 12.7 H, RBC 4.61, Hgb 13.5 L D, Hct 42.1, MCV 91.3, MCH 28.9, MCHC 31.6 L, RDW 13.3, Plt Count 293, MPV 9.7, Neut % (Auto) 91.6 H, Lymph % (Auto) 3.8 L, [place] % (Auto) 3.8, Eos % (Auto) 0.0 L, Baso % (Auto) 0.2, Neut # (Auto) 11.6 H, Lymph # (Auto) 0.5 L, [place] # (Auto) 0.5, Eos # (Auto) 0.0, Baso # (Auto) 0.0, Sodium 133 L, Potassium 4.8, Chloride 94 L, Carbon Dioxide 30, Anion Gap 13.8, BUN 30 H, Creatinine 0.40 L, Estimated Creat Clear 47, Estimated GFR 211, Est GFR ( Amer) 255 D, Glucose 108 H D, Calcium 8.7, Magnesium 2.2, Total Bilirubin 0.8, AST 65 H, ALT 36, Alkaline Phosphatase 127 H, Total Protein 6.9, Albumin 3.7 D, Globulin 3.2, Albumin/Globulin Ratio 1.2 I & O for Labs for Last 24 Hours: Intake & Output 02/15/25 02/16/25 02/17/25 02/18/25 23:59 23:59 23:59 23:59 Intake Total 1749 / 1986 1117 / 1237 720 / 840 880 / 880 Output Total 200 / 200 3520 / 3970 1050 / 1400 450 / 450 Balance 1550 / 1787 -2403 / -2733 -330 / -560 430 / 430 Weight 109 lb 15.818 oz 111 lb 4.8 oz 111 lb 103 lb 14.4 oz Intake & Output 02/14/25 02/15/25 02/16/25 02/17/25 23:59 23:59 23:59 23:59 Intake Total 2380 / 2380 1750 / 1986 1117 / 1237 120 / 120 Output Total 0 / 0 200 / 200 3520 / 3970 550 / 550 Balance 2380 / 2380 1550 / 1787 -2403 / -2733 -430 / -430 Weight 110 lb 109 lb 15.818 oz 111 lb 4.8 oz 111 lb Microbiology Reports for the Last 24 Hours: Microbiology 02/14/25 09:24 Blood Blood Culture - Preliminary NO GROWTH AFTER 4 DAYS 02/14/25 08:40 Blood Blood Culture - Preliminary NO GROWTH AFTER 4 DAYS Microbiology 02/14/25 09:24 Blood Blood Culture - Preliminary NO GROWTH AFTER 48 HOURS 02/14/25 08:40 Blood Blood Culture - Preliminary NO GROWTH AFTER 48 HOURS 02/14/25 16:59 Sputum - Expectorated Sputum Gram Stain - Final 02/14/25 16:59 Sputum - Expectorated Sputum Sputum Culture - Final Constitutional: Present severe distress Head: Present normocephalic and atraumatic ENT: Present normal exam, normal oropharynx and mucous membranes moist Neck: Present normal inspection and full ROM Respiratory: Present prolonged expiratory phase, respiratory distress, wheezes and distant breath sounds; Absent able to speak in complete sentences Cardiac: Present S1/S2, Tachycardia and radial pulses present GI: Present soft and distention; Absent tenderness or guarding Skin: Present intact; Absent cyanosis or jaundice Neuro: Present alert, awake and oriented x 3 Extremities: Present normal inspection; Absent clubbing or cyanosis Psychiatric: Present normal affect and cooperative Assessment and Plan *Assessment and plan (1) Acute respiratory failure with hypoxia: Status: Acute Category: Medical Code(s): J96.01 - Acute respiratory failure with hypoxia (2) Left lower lobe pneumonia: Status: Acute Qualifiers: Pneumonia type: due to unspecified organism Qualified Code(s): J18.9 - Pneumonia, unspecified organism Category: Medical Code(s): J18.9 - Pneumonia, unspecified organism Plan Mr. Mays is a 74-year-old male greater than [id number]-hcty smoking history carries a diagnosis of COPD at baseline respiratory inhaler not using any oxygen supplementation presented to the ER with worsening respiratory distress and pulmonary was called for further evaluation and management. CTA chest upon admission, no evidence of pulmonary embolism. LML and LLL infiltrates. No dense consolidative changes. Micronodular infiltrates. Emphyematous changes. COVID-19 and flu PCR panel negative. On examination severe respiratory distress. Not able to come talk in full sentences. Oxygen supplementation weaned to 1 L. Interval update: No acute respiratory events overnight. Worsening oxygen requirements. Worsening leukocytosis. Continue to use ceftriaxone and doxycycline. Chest x-ray from this morning concerning worsening of the left lower lobe airspace disease. Patient admits no significant improvement in his respiratory symptoms. He continued to only intermittently needing oxygen supplementation. He completed 5-day course of ceftriaxone and 3-day course of azithromycin. Plan: DuoNebs every 4 hours along with Pulmicort every 12 scheduled. Can be discharged on Breztri inhaler along with DuoNebs 4 times daily as needed Continue prednisone 40 mg oral daily to complete a total of 5-day course Change antibiotic levofloxacin 750 daily to complete total of 3-day course especially in setting of worsening leukocytosis, concern worsening of the left lower lobe airspace disease and patient not admitting any significant improvement in his respiratory symptoms. However it appears the patient at baseline have significant respiratory symptom burden and he is not far from his baseline. Continue oxygen supplementation to maintain O2 saturation of 90% and above. Continue 1 to 2 L NC oxygen supplementation at rest on 2-4 with exertion. Incentive spirometry and flutter valve # Thank you for involving pulmonary in this patient care. Will follow the patient in pulmonary clinic 1 to 2 weeks post discharge
--- NOTE | 2025-02-18 11:22 | XR_ITS ---
FINAL REPORT CLINICAL HISTORY: Hypoxia COMPARISON: 02/17/2025 FINDINGS: A portable view of the chest was obtained. Cardiac and mediastinal silhouettes are within normal limits. Underlying emphysema is again noted. There has likely been slight worsening of peripheral airspace disease in the left lung base. There is no pleural effusion or pneumothorax. IMPRESSION: Slight interval worsening of airspace disease in the lateral left lung base that is likely related to pneumonia. Authenticated and ERN
--- NOTE | 2025-02-18 12:20 | EXP.DC.SUM ---
General Admission date:: 02/14/25 Discharge date: 02/18/25 HPI HPI HPI: Mr. Mays is a 74-year-old male who presented to the emergency department with complaints of shortness of breath. He has a primary medical history of COPD, TIA, paroxysmal atrial fibrillation, and PFO repair. He complains of shortness of breath over the last several weeks, worse this morning. He states that he could not catch his breath and could not walk across the room so he called EMS. He stated in the ED that he was feeling lightheaded, but denied chest pain, abdominal pain, nausea, vomiting, diarrhea. He does state that he has been running fevers at home, unsure of temperature. Patient was found to be hypoxic upon arrival, O2 saturation in the 70s per EMS. Patient was placed on nonrebreather and O2 saturation became greater than 90%. Initially was put on BiPAP due to concerns for hypercapnic respiratory failure, VBG was assuring and patient was transition to nasal cannula. He was also given DuoNebs, Solu-Medrol, magnesium, and azithromycin and Rocephin IV. Patient's O2 improved and was tolerating 3 L nasal cannula on admission. Hospital Course Hospital Course Hospital Course: Mr. Mays is a 74-year-old male who presented to the emergency department with complaints of shortness of breath. He has a primary medical history of COPD, TIA, paroxysmal atrial fibrillation, and PFO repair. He complains of shortness of breath over the last several weeks, continuing to worsen. He states that he could not catch his breath and could not walk across the room so he called EMS. He stated in the ED that he was feeling lightheaded, but denied chest pain, abdominal pain, nausea, vomiting, diarrhea. He does state that he has been running fevers at home, unsure of temperature. Patient was found to be hypoxic upon arrival, O2 saturation in the 70s per EMS. Patient was placed on nonrebreather and O2 saturation became greater than 90%. Initially was put on BiPAP due to concerns for hypercapnic respiratory failure, VBG was assuring and patient was transition to nasal cannula. He was also given DuoNebs, Solu-Medrol, magnesium, and azithromycin and Rocephin IV. I personally reviewed his chest x-ray which showed a left lower lobe consolidation suspect for pneumonia. I was then consulted by the emergency department physician who requested admission, I agreed to admit the patient to the hospital medicine service. Plan of care as follows: #Acute respiratory failure with hypoxia #Sepsis #Left lower lobe pneumonia ? Workup in the emergency department was significant for left lower lobe pneumonia. Patient met sepsis criteria with tachypnea, tachycardia, and left lower lobe pneumonia. Patient received full sepsis bolus in the ED. He also states that he was febrile at home, afebrile during admission. Patient has new oxygen requirement of 2-3 L, room air at rest was 86%. Room air with 2 L O2 95%. ?Pulmonology consulted due to continued increase in work of breathing and LLL pneumonia. Pulmonology recommended adding doxycycline 100 mg twice daily and continued use of incentive spirometer and flutter valve. Increase DuoNebs to every 4 hours scheduled, Pulmicort twice daily. Patient is also receiving prednisone 40 mg daily. Patient completed 3-day course of azithromycin 500 mg. ?Repeat chest x-ray shows no change in left basilar opacity concerning for pneumonia. Underlying emphysema is identified. ? Laboratory workup, WBC 17.0 (likely reactive to steroid use), no anemia, no electrolyte abnormalities, BUN slightly elevated at 38, creatinine 0.60. Lactate originally 2.8, trended downward to 2.1. BNP slightly elevated at 273. Patient assessment reveals no volume overload. Troponins remain negative. Procalcitonin 0.077. TSH within normal limits, 0.97. Respiratory swab was negative for flu and COVID. Patient continued to feel short of breath, echo obtained; mildly reduced LVEF 45%, grade 2 diastolic dysfunction, elevated RVSP of 50-55. 1 dose of IV Lasix 40 mg given, stop diltiazem daily as this can contribute to worsening heart failure. Initiate metoprolol succinate 12.5 daily, Farxiga 10 mg daily, and Entresto twice daily for goal-directed therapy. ? CBC, CMP, magnesium ordered for the a.m. Blood cultures show no growth after 4 days, for sputum culture Gram stain shows normal respiratory lucho. #COPD #Emphysema ? Patient does have a diagnosis of COPD, former smoker, uses Breztri 2 puffs twice daily. Transition patient from Breztri inhaler twice daily to Pulmicort twice daily. At discharge patient should transition to Trelegy inhaler daily. ? DuoNebs ordered every 4 hours scheduled, patient should continue DuoNebs every 4-6 hours scheduled at discharge. Patient still complains of shortness of breath, worse with activity. Feels as though he is gasping for air when he tries to ambulate. Will initiate steroids for continued shortness of air, Solu-Medrol 40 mg IV given once, continue prednisone 40 mg p.o. x 5 days. Will also order albuterol inhaler every 4 hours as needed for shortness of breath between DuoNeb treatments. #Paroxysmal A-fib #History of CVA ? Patient states that he has a history of paroxysmal A-fib, Follows with . Patient currently on diltiazem 120 mg at bedtime and Eliquis 5 mg twice daily. Patient does have a loop recorder in place. Patient states he had a CVA in 2018 where it was determined he had a PFO which was repaired. Patient has had no episodes of A-fib that he is aware of since that time. ? Will continue patient's Eliquis 5 mg twice daily, atorvastatin 80 mg at bedtime. #Severe protein?calorie malnutrition #Cachexia ? Patient meets criteria for severe protein?calorie malnutrition. Patient seen by nutrition consulted who recommended protein supplementation. Patient does state that he has lost 40 pounds in the last year or so. He states he has had a recent colonoscopy (in January). Suspect cachexia related to emphysema/COPD changes. ? PT/OT evaluation recommendation SNF facility for difficulty with endurance, strength, safety, ADL independence, functional transfers. Total time spent on discharge 44 minutes in counseling, documentation, chart review, and direct care with patient. Exam Data for Last 24 hours Vital signs and Labs for Last 24 Hours: Temp Pulse Resp BP Pulse Ox O2 Del Method O2 Flow Rate 98.1 F 119 H 18 125/79 86 L Nasal Cannula 2.5 02/18/25 07:36 02/18/25 10:00 02/18/25 07:36 02/18/25 07:36 02/18/25 11:00 02/18/25 11:08 02/18/25 11:08 FiO2 36 02/16/25 23:03 Laboratory Results - last 24 hr 02/18/25 05:40: WBC 17.0 H D, RBC 4.87, Hgb 14.3, Hct 44.5, MCV 91.4, MCH 29.4, MCHC 32.1, RDW 13.2, Plt Count 331, MPV 10.0, Neut % (Auto) 87.2 H, Lymph % (Auto) 4.7 L, [place] % (Auto) 7.4, Eos % (Auto) 0.0 L, Baso % (Auto) 0.1, Neut # (Auto) 14.8 H, Lymph # (Auto) 0.8, [place] # (Auto) 1.3 H, Eos # (Auto) 0.0, Baso # (Auto) 0.0, Sodium 137, Potassium 4.2, Chloride 95 L, Carbon Dioxide 36 H, Anion Gap 10.2, BUN 38 H D, Creatinine 0.60 L D, Estimated Creat Clear 47, Estimated GFR 132, Est GFR ( Amer) 160 D, Glucose 83 D, Calcium 9.0, Total Bilirubin 0.6, AST 68 H, ALT 39, Alkaline Phosphatase 110, Total Protein 6.8, Albumin 3.5, Globulin 3.3 H, Albumin/Globulin Ratio 1.1 I & O for Last 24 hours: Intake & Output 02/15/25 02/16/25 02/17/25 02/18/25 23:59 23:59 23:59 23:59 Intake Total 1750 / 1987 1117 / 1237 720 / 840 880 / 880 Output Total 200 / 200 3520 / 3970 1050 / 1400 450 / 450 Balance 1550 / 1787 -2403 / -2733 -330 / -560 430 / 430 Weight 49.89 kg 50.485 kg 50.349 kg 47.128 kg Microbiology Reports for the Last 24 Hours: Microbiology 02/14/25 09:24 Blood Blood Culture - Preliminary NO GROWTH AFTER 4 DAYS 02/14/25 08:40 Blood Blood Culture - Preliminary NO GROWTH AFTER 4 DAYS Constitutional Constitutional: mild distress, thin and chronically ill appearing *Routine HEENT Exam Head: Present normocephalic Eye: Present EOMI and PERRL ENT: Present mucous membranes moist *Routine Neck Exam Neck: Present supple and full ROM; Absent lymphadenopathy *Routine Respiratory Exam Respiratory: Present decreased breath sounds, diminished air movement and symmetric chest movement; Absent wheezes or crackles *Routine Cardiovascular Exam Cardiovascular: Present RRR; Absent murmur *Routine Abdominal Exam Abdominal: Present soft and normoactive bowel sounds; Absent tenderness *Routine Rectal Exam Patient deferred: visual exam *Routine Exam Patient deferred: penile exam *Routine Extremities Exam Extremities: Present full ROM and pulses intact; Absent cyanosis, clubbing or edema *Routine Skin Exam Skin: Present intact, dry and warm; Absent rash *Routine Neurological Exam Neurological: Present alert, oriented X3, vision grossly intact, hearing grossly intact and normal speech Results Data Completed and Pending Labs on day of discharge: Labs from last 24 hours 02/18/25 05:40 WBC 17.0 H D RBC 4.87 Hgb 14.3 Hct 44.5 MCV 91.4 MCH 29.4 MCHC 32.1 RDW 13.2 Plt Count 331 MPV 10.0 Neut % (Auto) 87.2 H Lymph % (Auto) 4.7 L [place] % (Auto) 7.4 Eos % (Auto) 0.0 L Baso % (Auto) 0.1 Neut # (Auto) 14.8 H Lymph # (Auto) 0.8 [place] # (Auto) 1.3 H Eos # (Auto) 0.0 Baso # (Auto) 0.0 Sodium 137 Potassium 4.2 Chloride 95 L Carbon Dioxide 36 H Anion Gap 10.2 BUN 38 H D Creatinine 0.60 L D Estimated Creat Clear 47 Estimated GFR 132 Est GFR ( Amer) 160 D Glucose 83 D Calcium 9.0 Total Bilirubin 0.6 AST 68 H ALT 39 Alkaline Phosphatase 110 Total Protein 6.8 Albumin 3.5 Globulin 3.3 H Albumin/Globulin Ratio 1.1 Preliminary micro results at discharge 02/14/25 09:24 Blood Culture - Preliminary Blood NO GROWTH AFTER 4 DAYS 02/14/25 08:40 Blood Culture - Preliminary Blood NO GROWTH AFTER 4 DAYS DS: Diagnosis Discharge Diagnosis (1) Acute respiratory failure with hypoxia: Status: Acute Code(s): J96.01 - Acute respiratory failure with hypoxia (2) Left lower lobe pneumonia: Status: Acute Code(s): J18.9 - Pneumonia, unspecified organism Qualifiers: Pneumonia type: due to unspecified organism Qualified Code(s): J18.9 - Pneumonia, unspecified organism Meds Home Medications and Allergies Home Medications ?Medication ?Instructions ?Recorded ?Confirmed ?Type albuterol sulfate 90 mcg/actuation 2 puff inhalation Q4-6H PRN 02/14/25 02/14/25 History aerosol inhaler Shortness Of Breath apixaban 5 mg tablet (Eliquis) 5 mg PO BID 02/14/25 02/14/25 History atorvastatin 80 mg tablet 80 mg PO HS 02/14/25 02/14/25 History budesonide 160 mcg-glycopyr 9 2 puff inhalation BID 02/14/25 02/14/25 History mcg-formot 4.8 mcg/actuation HFA inhaler (Breztri Aerosphere) diltiazem HCl 120 mg 120 mg PO HS 02/14/25 02/14/25 History capsule,extended release 24 hr New Prescriptions to Start Prescriptions: Allergies Allergy/AdvReac Type Severity Reaction Status Date / Time No Known Allergies Allergy Unverified 03/16/19 12:58 Discharge Plan Disposition Patient Disposition: er [facility] Condition: Fair Follow up Plan Follow up with: Johnnie Bryan MD [Physician, Pulmonology] - Enter time for follow up Collette Rendon APRN [Primary Care Provider, Medical] - Enter time for follow up Prescriptions/Medication Reconciliation: No Action atorvastatin 80 mg tablet 80 mg PO HS diltiazem HCl 120 mg capsule,extended release 24hr 120 mg PO HS albuterol sulfate 90 mcg/actuation HFA aerosol inhaler 2 puff INHALATION Q4-6H PRN (Reason: Shortness Of Breath) Eliquis 5 mg tablet 5 mg PO BID Breztri Aerosphere 160-9-4.8 mcg/actuation HFA aerosol inhaler 2 puff INHALATION BID Patient Comments: INHALE 2 PUFFS BY MOUTH TWICE DAILY Patient Discharge Instructions Patient Instructions: Pneumonia in Adults, Sepsis, Stop Light Pneumonia, NCM Chronic Obstructive Pulmonary Disease (COPD) Diet, NCM High-Calorie High-Protein Diet, WM High Calorie High Protein Diet Recipes, Pulmonary Diet Print Language: Wallisian Providers Primary Care Provider: Collette Rendon Admit Provider: Jewel Gonzalez Attending Provider: Jewel Gonzalez
[2025-02-18] MEDS: LEVOFLOXACIN/D5W 750 MG/150 ML 750 MG/150 ML PIGGYBACK 100 MG IV (12:30)
--- NOTE | 2025-02-18 16:14 | PC.NURSE ---
Patient alert and oriented. Tachycardic. Other vital signs stable. On 2.5L O2 via NC with continued complaints of dyspnea. Up ad yuri. Sitting in chair leaning over edge of bed throughout shift. Antibiotics infused per orders. Denies pain. Voiding via urinal. at bedside throughout shift. Plan for discharge to [facility] tomorrow
--- NOTE | 2025-02-18 18:08 | EXP.ACUTE.PN ---
Subjective *Date: 02/18/25 *Time: 18:08 Interval history: Patient continues to feel/report feeling dyspneic. Using pursed lip breathing. Stable on 2 L oxygen. O2 sats in the mid 90s. Blood pressure remains within normal limits. No nausea or vomiting. Attempting to eat meals, poor p.o. intake. Able to speak in complete sentences. Alert and oriented x 4. at bedside. Extensive discussion with case management present about goals of care and patient's status along with response to current treatment and discharge plan. Patient at this time is been accepted by [facility]. Has been on stable oxygen for 2 days. Tolerating p.o. medications. Pulmonology assisting with care. Anticipate discharge in the next day or 2. Patient states his displeasure with this decision and thinks he needs to be in the hospital longer until he is eating better and more functional. Explained that this is why we would like to get him to skilled care at his and his 's request over the past several days due to her concern for being able to care for him at home. He has been working with therapy daily. Afebrile. Medical Exam Vital signs and Labs for Last 24 Hours: Vital Signs Temp Pulse Pulse Resp BP Pulse Ox O2 Del Method 02/18/25 15:51 97.9 F 111 H 18 129/79 94 L Nasal Cannula 02/18/25 15:00 Nasal Cannula 02/18/25 13:05 88 02/18/25 13:05 87 02/18/25 13:00 Nasal Cannula 02/18/25 12:00 98.1 F 105 H 18 127/72 95 Nasal Cannula 02/18/25 11:08 Nasal Cannula 02/18/25 11:00 86 L Room Air 02/18/25 10:00 119 H 02/18/25 10:00 121 H 02/18/25 10:00 92 L Nasal Cannula 02/18/25 09:00 Nasal Cannula 02/18/25 07:36 98.1 F 113 H 18 125/79 94 L Nasal Cannula 02/18/25 06:12 111 H 02/18/25 06:12 110 H 02/18/25 06:12 95 Nasal Cannula 02/18/25 05:00 Nasal Cannula 02/18/25 04:00 97.2 F L 82 16 108/68 L 97 Nasal Cannula 02/18/25 03:00 Nasal Cannula 02/18/25 02:00 92 H 02/18/25 02:00 92 H 02/18/25 01:00 Nasal Cannula 02/18/25 00:00 98.0 F 75 18 113/73 99 Nasal Cannula 02/17/25 23:00 Nasal Cannula 02/17/25 22:58 96 H 02/17/25 22:58 94 H 02/17/25 21:00 Nasal Cannula 02/17/25 20:00 98.0 F 112 H 20 147/84 H 95 02/17/25 20:00 95 Nasal Cannula 02/17/25 18:35 Nasal Cannula 02/17/25 18:19 112 H 02/17/25 18:19 110 H 02/17/25 18:19 93 L Nasal Cannula O2 Flow Rate 02/18/25 15:51 2.5 02/18/25 15:00 2.5 02/18/25 13:05 02/18/25 13:05 02/18/25 13:00 2.5 02/18/25 12:00 2.5 02/18/25 11:08 2.5 02/18/25 11:00 02/18/25 10:00 02/18/25 10:00 02/18/25 10:00 2 02/18/25 09:00 2.5 02/18/25 07:36 2 02/18/25 06:12 02/18/25 06:12 02/18/25 06:12 2 02/18/25 05:00 2.5 02/18/25 04:00 2.5 02/18/25 03:00 2.5 02/18/25 02:00 02/18/25 02:00 02/18/25 01:00 2.5 02/18/25 00:00 2.5 02/17/25 23:00 2.5 02/17/25 22:58 02/17/25 22:58 02/17/25 21:00 2.5 02/17/25 20:00 2.5 02/17/25 20:00 2.5 02/17/25 18:35 2.5 02/17/25 18:19 02/17/25 18:19 02/17/25 18:19 2.5 Intake and Output 02/18/25 02/18/25 02/18/25 07:59 15:59 23:59 Intake Total 120 / 3080 1360 / 3080 1600 / 3080 Output Total 450 / 875 425 / 875 Balance -330 / 2205 935 / 2205 1600 / 2205 Intake: Intake, Oral Amount 120 / 2280 960 / 2280 1200 / 2280 Intake, Total IV Amount 400 / 800 400 / 800 Doxycycline Hyclate 100 mg In 0 250 / 500 250 / 500 .9 % Sodium Chloride 250 ml @ 166.667 mls/hr IV Q12 [facility] Rx#: [id number] Levofloxacin/D5w 750 mg/150 ml 150 / 300 150 / 300 750 mg In 150 ml @ 100 mls/hr IV Q24H [facility] Rx#:[id number] Output: Output, Urine Amount 450 / 875 425 / 875 Other: Number of Unmeasured Voids 1 0 Number of Bowel Movements 1 1 Weight 47.128 kg Patient Weight 02/18/25 23:59 Weight 47.128 kg Laboratory Results - last 24 hr 02/18/25 05:40: WBC 17.0 H D, RBC 4.87, Hgb 14.3, Hct 44.5, MCV 91.4, MCH 29.4, MCHC 32.1, RDW 13.2, Plt Count 331, MPV 10.0, Neut % (Auto) 87.2 H, Lymph % (Auto) 4.7 L, Page % (Auto) 7.4, Eos % (Auto) 0.0 L, Baso % (Auto) 0.1, Neut # (Auto) 14.8 H, Lymph # (Auto) 0.8, Page # (Auto) 1.3 H, Eos # (Auto) 0.0, Baso # (Auto) 0.0, Sodium 137, Potassium 4.2, Chloride 95 L, Carbon Dioxide 36 H, Anion Gap 10.2, BUN 38 H D, Creatinine 0.60 L D, Estimated Creat Clear 47, Estimated GFR 132, Est GFR ( Amer) 160 D, Glucose 83 D, Calcium 9.0, Total Bilirubin 0.6, AST 68 H, ALT 39, Alkaline Phosphatase 110, Total Protein 6.8, Albumin 3.5, Globulin 3.3 H, Albumin/Globulin Ratio 1.1 I & O for Labs for Last 24 Hours: Intake & Output 02/15/25 02/16/25 02/17/25 02/18/25 23:59 23:59 23:59 23:59 Intake Total 1749 / 1986 1117 / 1237 720 / 840 3080 / 3080 Output Total 200 / 200 3520 / 3970 1050 / 1400 875 / 875 Balance 1550 / 1787 -2403 / -2733 -330 / -560 2205 / 2205 Weight 49.89 kg 50.485 kg 50.349 kg 47.128 kg Microbiology Reports for the Last 24 Hours: Microbiology 02/14/25 09:24 Blood Blood Culture - Preliminary NO GROWTH AFTER 4 DAYS 02/14/25 08:40 Blood Blood Culture - Preliminary NO GROWTH AFTER 4 DAYS Constitutional: Present mild distress, cachectic, chronically ill appearing and cooperative Head: Present atraumatic Eyes: Present as per HPI ENT: Present normal exam Neck: Present normal inspection Respiratory: Present diminished air movement, able to speak in complete sentences and symmetric chest movement; Absent wheezes or crackles Comment:: Barrel chested Cardiac: Present Reg Rate and Rhythm; Absent No Murmur GI: Present soft and normal bowel sounds; Absent distention or tenderness Rectal (male): Present deferred (male): Present deferred Extremities: Present normal inspection and full ROM; Absent edema Skin: Present intact and dry; Absent rash Neuro: Present Grossly Intact, alert, awake and oriented x 3 Assessment and Plan *Assessment and plan (1) Acute respiratory failure with hypoxia: Status: Acute Category: Medical Code(s): J96.01 - Acute respiratory failure with hypoxia (2) Sepsis: Status: Acute Qualifiers: Sepsis acute organ dysfunction status: with acute organ dysfunction Sepsis type: sepsis due to unspecified organism Severe sepsis acute organ dysfunction type: acute respiratory failure Category: Medical Code(s): A41.9 - Sepsis, unspecified organism (3) Left lower lobe pneumonia: Status: Acute Qualifiers: Pneumonia type: due to unspecified organism Qualified Code(s): J18.9 - Pneumonia, unspecified organism Category: Medical Code(s): J18.9 - Pneumonia, unspecified organism (4) COPD (chronic obstructive pulmonary disease): Status: Acute Category: Medical Code(s): J44.9 - Chronic obstructive pulmonary disease, unspecified (5) Paroxysmal A-fib: Status: Acute Category: Medical Code(s): I48.0 - Paroxysmal atrial fibrillation (6) History of CVA (cerebrovascular accident): Status: Acute Category: Medical Code(s): Z86.73 - Personal history of transient ischemic attack (TIA), and cerebral infarction without residual deficits (7) Severe protein-calorie malnutrition: Status: Acute Category: Medical Code(s): E43 - Unspecified severe protein-calorie malnutrition (8) Cachexia: Status: Acute Category: Medical Code(s): R64 - Cachexia Plan Mr. Mays is a 74-year-old male who presented to the emergency department with complaints of shortness of breath. He has a primary medical history of COPD, TIA, paroxysmal atrial fibrillation, and PFO repair. He complains of shortness of breath over the last several weeks, worse this morning. He states that he could not catch his breath and could not walk across the room so he called EMS. He stated in the ED that he was feeling lightheaded, but denied chest pain, abdominal pain, nausea, vomiting, diarrhea. He does state that he has been running fevers at home, unsure of temperature. Patient was found to be hypoxic upon arrival, O2 saturation in the 70s per EMS. Patient was placed on nonrebreather and O2 saturation became greater than 90%. Initially was put on BiPAP due to concerns for hypercapnic respiratory failure, VBG was assuring and patient was transition to nasal cannula. He was also given DuoNebs, Solu-Medrol, magnesium, and azithromycin and Rocephin IV. I personally reviewed his chest x-ray which showed a left lower lobe consolidation suspect for pneumonia. I was then consulted by the emergency department physician who requested admission, I agreed to admit the patient to the hospital medicine service. Had stable oxygen requirement for 48 hours. On oral therapy. Appropriate for discharge in the next 24 hours. Plan of care as follows: #Acute respiratory failure with hypoxia #Sepsis, resolved #Left lower lobe pneumonia #COPD/emphysema ? Workup in the emergency department was significant for left lower lobe pneumonia. Patient met sepsis criteria with tachypnea, tachycardia, and left lower lobe pneumonia. Patient received full sepsis bolus in the ED. He also states that he was febrile at home, afebrile during my assessment. Patient has new oxygen requirement of 3 L, weaned to room air. Patient requiring O2 with exertion, when ambulating patient's O2 dropped to 84%. ?Repeat chest x-ray per my review today shows persistent left lower lobe consolidation near costophrenic angle. Consistent with pneumonia. Significant hyperinflation with all 12 ribs visible in lung field. ? CBC, CMP, magnesium ordered for the a.m. Blood cultures show no growth after 48 hours, sputum culture Gram stain shows normal respiratory lucho. - Extensive discussion with pulmonology today, recommend continuing prednisone 40 mg daily to complete 5 days. Antibiotic was changed to Levaquin 750 mg daily to complete total of 3 days. White count has increased a little to 17 however the increase has begun after starting steroids. Patient remains afebrile and hemodynamically stable. - Continue supplemental oxygen for goal sats greater 90%. Currently requiring 1 to 2 L. Recommend increasing to 2 to 4 L with exertion based on patient's reported symptomatology. Continue incentive spirometry and flutter valve. Needs follow-up in 1 to 2 weeks. Stable for discharge from his perspective. - Recommend discharging on Breztri inhaler along with DuoNebs 4 times a day. - Continuing DuoNebs every 4 hours and Pulmicort twice daily while admitted. - Has completed 5-day course of ceftriaxone and 3-day course of azithromycin #Paroxysmal A-fib #History of CVA # New finding of combined heart failure ? Patient states that he has a history of paroxysmal A-fib, Follows with . - Discontinue diltiazem on presentation. Echo obtained showing EF 45% grade 2 diastolic dysfunction - EKG obtained today with sinus tachycardia. No A-fib. -Continue Eliquis 5 mg twice daily, Lipitor 80 mg nightly. - Initiated on GDMT for heart failure. 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 Patient meets criteria for severe protein?calorie malnutrition. Patient seen by nutrition consulted who recommended protein supplementation. Patient does state that he has lost 40 pounds in the last year or so. He states he has had a recent colonoscopy (in January). Suspect cachexia related to emphysema/COPD changes. ? PT/OT evaluation recommendation SNF facility for difficulty with endurance, strength, safety, ADL independence, functional transfers. - Working with therapy daily. Excepted to [facility]. Full code VTE?Eliquis 5 mg twice daily Regular diet
[2025-02-18] MEDS: ATORVASTATIN 40MG TABLET 80 MG PO (20:36)
[2025-02-19] VITALS: BP 107/73; PULSE 96; RESP 20; TEMP 36.7; O2SAT 96
[2025-02-19] MEDS: IPRATROPIUM/ALBUTEROL 3 ML NEB IH ×3 (02:13→10:07)
[2025-02-19 02:15] VITALS: PULSE 100; PULSE 102
[2025-02-19 04:00] VITALS: BP 122/62; PULSE 91; RESP 20; TEMP 36.7; O2SAT 91; BMI 17.6
[2025-02-19 06:05] VITALS: PULSE 101; PULSE 98; O2SAT 99
[2025-02-19] MEDS: BUDESONIDE 0.5MG/2ML NEB 0.5 MG IH (06:05)
--- NOTE | 2025-02-19 06:10 | PC.NURSE ---
on initial assessment pt appeared anxious and stated he was when asked. took a shower and tolerated well going at his own pace with assist x1. pt slept in his chair in tripod position over his bed, nursing encouraged him to get in bed for comfort but he ref. at [facility]
--- NOTE | 2025-02-19 07:21 | EXP.DC.SUM ---
General Admission date:: 02/14/25 Discharge date: 02/19/25 HPI HPI HPI: Mr. Mays is a 74-year-old male who presented to the emergency department with complaints of shortness of breath. He has a primary medical history of COPD, TIA, paroxysmal atrial fibrillation, and PFO repair. He complains of shortness of breath over the last several weeks, worse this morning. He states that he could not catch his breath and could not walk across the room so he called EMS. He stated in the ED that he was feeling lightheaded, but denied chest pain, abdominal pain, nausea, vomiting, diarrhea. He does state that he has been running fevers at home, unsure of temperature. Patient was found to be hypoxic upon arrival, O2 saturation in the 70s per EMS. Patient was placed on nonrebreather and O2 saturation became greater than 90%. Initially was put on BiPAP due to concerns for hypercapnic respiratory failure, VBG was assuring and patient was transition to nasal cannula. He was also given DuoNebs, Solu-Medrol, magnesium, and azithromycin and Rocephin IV. Patient's O2 improved and was tolerating 3 L nasal cannula on admission. Hospital Course Hospital Course Hospital Course: Mr. Mays is a 74-year-old male who presented to the emergency department with complaints of shortness of breath. He has a primary medical history of COPD, TIA, paroxysmal atrial fibrillation, and PFO repair. He complains of shortness of breath over the last several weeks, worse this morning. He states that he could not catch his breath and could not walk across the room so he called EMS. He stated in the ED that he was feeling lightheaded, but denied chest pain, abdominal pain, nausea, vomiting, diarrhea. He does state that he has been running fevers at home, unsure of temperature. Patient was found to be hypoxic upon arrival, O2 saturation in the 70s per EMS. Patient was placed on nonrebreather and O2 saturation became greater than 90%. Initially was put on BiPAP due to concerns for hypercapnic respiratory failure, VBG was assuring and patient was transition to nasal cannula. He was also given DuoNebs, Solu-Medrol, magnesium, and azithromycin and Rocephin IV. I personally reviewed his chest x-ray which showed a left lower lobe consolidation suspect for pneumonia. I was then consulted by the emergency department physician who requested admission, I agreed to admit the patient to the hospital medicine service. Patient has responded to antibiotics. White count improving. Stable oxygen requirement for over 72 hours. On oral therapy for pneumonia, COPD, combined heart failure. Stable discharge to rehab. Problems addressed as follows: #Acute respiratory failure with hypoxia #Sepsis, resolved #Left lower lobe pneumonia #COPD/emphysema ? Workup in the emergency department was significant for left lower lobe pneumonia. Patient met sepsis criteria with tachypnea, tachycardia, and left lower lobe pneumonia. Patient received full sepsis bolus in the ED. He also states that he was febrile at home, afebrile during my assessment. Patient has new oxygen requirement of 3 L, weaned to room air initially. Patient requiring O2 with exertion, when ambulating patient's O2 dropped to 84%. Will continue supplemental oxygen. ?Repeat chest x-ray on 02/18 shows persistent left lower lobe consolidation near costophrenic angle. Consistent with pneumonia. Significant hyperinflation with all 12 ribs visible in lung field. ? CBC, CMP, magnesium ordered for the a.m. Blood cultures show no growth after 48 hours, sputum culture Gram stain shows normal respiratory lucho. - Extensive discussion with pulmonology, recommend continuing prednisone 40 mg daily for 5 days. Will complete 3 days of Levaquin. Renally dosing so he will receive 1 more dose on 02/20. White count showing improvement to 15 by day of discharge. Remains afebrile and hemodynamically stable. - Continue supplemental oxygen for goal sats greater 90%. Currently requiring 1 to 2 L. Recommend increasing to 2 to 4 L with exertion based on patient's reported symptomatology. Continue incentive spirometry and flutter valve. Needs follow-up in 1 to 2 weeks. Stable for discharge from his perspective. - Recommend Breztri inhaler along with DuoNebs 4 times a day. - Continuing albuterol as needed in addition to DuoNebs - Has completed 5-day course of ceftriaxone and 3-day course of azithromycin #Paroxysmal A-fib #History of CVA # New finding of combined heart failure ? Patient states that he has a history of paroxysmal A-fib, Follows with . History of PFO repair. Was on diltiazem for paroxysmal A-fib and hypertension on admission. Discontinued due to new finding on echo of EF 45% grade 2 diastolic dysfunction. Serial troponins were obtained on admission they were all less than 0.01. EKG was obtained that showed sinus tachycardia but no A-fib or ischemic changes. Continued his Eliquis 5 mg twice daily and Lipitor 80 mg nightly. Initiated on GDMT for heart failure. Continue Entresto 24/26 mg twice daily, metoprolol to succinate 25 mg daily, dapagliflozin 10 mg daily. 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 If unable to follow-up with his publications production supervisor at , encourage patient to consider following with our cardiology team at [facility]. #Severe protein?calorie malnutrition #Cachexia ? Patient meets criteria for severe protein?calorie malnutrition. Patient seen by nutrition consulted who recommended protein supplementation. Patient does state that he has lost 40 pounds in the last year or so. He states he has had a recent colonoscopy (in January). Suspect cachexia related to emphysema/COPD. PT/OT evaluation recommendation SNF facility for difficulty with endurance, strength, safety, ADL independence, functional transfers. Has been working with therapy daily. Excepted to [facility] for further management. Stable to discharge at this time. Total time spent on discharge 32 minutes in counseling, documentation, chart review, and direct care with patient. Exam Data for Last 24 hours Vital signs and Labs for Last 24 Hours: Temp Pulse Resp BP Pulse Ox O2 Del Method O2 Flow Rate 98.0 F 98 H 20 122/62 99 Nasal Cannula 2.5 02/19/25 04:00 02/19/25 06:05 02/19/25 04:00 02/19/25 04:00 02/19/25 06:05 02/19/25 06:09 02/19/25 06:09 FiO2 36 02/16/25 23:03 I & O for Last 24 hours: Intake & Output 02/16/25 02/17/25 02/18/25 02/19/25 23:59 23:59 23:59 23:59 Intake Total 1117 / 1237 720 / 840 3080 / 3080 Output Total 3520 / 3970 1050 / 1400 1025 / 1025 0 / 0 Balance -2403 / -2733 -330 / -560 2054 / 2054 0 / 0 Weight 50.485 kg 50.349 kg 47.128 kg 49.895 kg Microbiology Reports for the Last 24 Hours: Microbiology 02/14/25 09:24 Blood Blood Culture - Preliminary NO GROWTH AFTER 4 DAYS 02/14/25 08:40 Blood Blood Culture - Preliminary NO GROWTH AFTER 4 DAYS Constitutional Constitutional: no acute distress, cachectic, chronically ill appearing and cooperative *Routine HEENT Exam Head: Present normocephalic Eye: Present EOMI and PERRL ENT: Present mucous membranes moist *Routine Neck Exam Neck: Present supple and full ROM; Absent lymphadenopathy Routine Chest/Breast/Axilla Exam Comments: Barrel chested, prominent ribs *Routine Respiratory Exam Respiratory: Present decreased breath sounds, diminished air movement and symmetric chest movement; Absent rhonchi, wheezes or crackles *Routine Cardiovascular Exam Cardiovascular: Present RRR; Absent murmur *Routine Abdominal Exam Abdominal: Present soft and normoactive bowel sounds; Absent tenderness *Routine Rectal Exam Patient deferred: visual exam *Routine Exam Patient deferred: penile exam *Routine Extremities Exam Extremities: Present full ROM and pulses intact; Absent cyanosis, clubbing or edema Comments: Thin, sarcopenia *Routine Skin Exam Skin: Present intact, dry and warm; Absent rash *Routine Neurological Exam Neurological: Present alert, oriented X3, moving all extremities, hearing grossly intact and normal speech; Absent altered mental status Routine Psychiatric Exam Psychiatric: Present normal affect Results Data Completed and Pending Labs on day of discharge: Preliminary micro results at discharge 02/14/25 09:24 Blood Culture - Preliminary Blood NO GROWTH AFTER 4 DAYS 02/14/25 08:40 Blood Culture - Preliminary Blood NO GROWTH AFTER 4 DAYS DS: Diagnosis Discharge Diagnosis (1) Acute respiratory failure with hypoxia: Status: Acute Code(s): J96.01 - Acute respiratory failure with hypoxia (2) Sepsis: Status: Resolved Code(s): A41.9 - Sepsis, unspecified organism Qualifiers: Sepsis acute organ dysfunction status: with acute organ dysfunction Sepsis type: sepsis due to unspecified organism Severe sepsis acute organ dysfunction type: acute respiratory failure (3) Left lower lobe pneumonia: Status: Acute Code(s): J18.9 - Pneumonia, unspecified organism Qualifiers: Pneumonia type: due to unspecified organism Qualified Code(s): J18.9 - Pneumonia, unspecified organism (4) COPD (chronic obstructive pulmonary disease): Status: Acute Code(s): J44.9 - Chronic obstructive pulmonary disease, unspecified (5) Paroxysmal A-fib: Status: Acute Code(s): I48.0 - Paroxysmal atrial fibrillation (6) History of CVA (cerebrovascular accident): Status: Acute Code(s): Z86.73 - Personal history of transient ischemic attack (TIA), and cerebral infarction without residual deficits (7) Severe protein-calorie malnutrition: Status: Acute Code(s): E43 - Unspecified severe protein-calorie malnutrition (8) Cachexia: Status: Acute Code(s): R64 - Cachexia (9) Combined systolic and diastolic heart failure: Status: Acute Code(s): I50.40 - Unspecified combined systolic (congestive) and diastolic (congestive) heart failure Meds Home Medications and Allergies Home Medications ?Medication ?Instructions ?Recorded ?Confirmed ?Type albuterol sulfate 90 mcg/actuation 2 puff inhalation Q4-6H PRN 02/14/25 02/14/25 History aerosol inhaler Shortness Of Breath apixaban 5 mg tablet (Eliquis) 5 mg PO BID 02/14/25 02/14/25 History atorvastatin 80 mg tablet 80 mg PO HS 02/14/25 02/14/25 History budesonide 160 mcg-glycopyr 9 2 puff inhalation BID 02/14/25 02/14/25 History mcg-formot 4.8 mcg/actuation HFA inhaler (Breztri Aerosphere) dapagliflozin propanediol 10 mg 10 mg PO DAILY 30 days #30 tabs 02/19/25 Rx tablet (Farxiga) ipratropium 0.5 mg-albuterol 3 mg 3 ml inhalation QID 30 days #180 mL 02/19/25 Rx (2.5 mg base)/3 mL nebulization soln levofloxacin 750 mg tablet 750 mg PO Q48H 1 day #1 tab 02/19/25 Rx metoprolol succinate 50 mg 50 mg PO DAILY 30 days #30 tabs 02/19/25 Rx tablet,extended release 24 hr (Toprol XL) prednisone 20 mg tablet 40 mg (2 x 20 mg) PO DAILY 2 days 02/19/25 Rx #4 tabs sacubitril 24 mg-valsartan 26 mg 1 tab PO BID 30 days #60 tabs 02/19/25 Rx tablet (Entresto) New Prescriptions to Start Prescriptions: dapagliflozin propanediol [Farxiga] Jewel Gonzalez ipratropium-albuterol Jewel Gonzalez levofloxacin Jewel Gonzalez metoprolol succinate [Toprol XL] Jewel Gonzalez prednisone Jewel Gonzalez sacubitril-valsartan [Entresto] Jewel Gonzalez Allergies Allergy/AdvReac Type Severity Reaction Status Date / Time No Known Allergies Allergy Unverified 03/16/19 12:58 Discharge Plan Disposition Patient Disposition: Xfer SNF Condition: Fair Discharge Order Discharge Orders: Discharge Order (Routine); Ordered 02/19/25 Ordered By: Jewel Gonzalez Follow up Plan Follow up with: Collette Rendon APRN [Primary Care Provider, Medical] - 02/23/25 10:30 am Allie Serna MD [Referring, Medical] - Enter time for follow up Referral Note: Will call patient with appointment. Mark Love MD [Referring, Medical] - 03/15/25 2:30 am Johnnie Bryan MD [Physician, Pulmonology] - 03/10/25 1:00 pm Prescriptions/Medication Reconciliation: New ipratropium-albuterol 0.5 mg-3 mg(2.5 mg base)/3 mL Solution For Nebulization 3 ml inhalation QID 30 Days Qty: 180 0RF dapagliflozin propanediol [Farxiga] 10 mg Tablet 10 mg PO DAILY 30 Days Qty: 30 0RF metoprolol succinate [Toprol XL] 50 mg Tablet Extended Release 24 Hr 50 mg PO DAILY 30 Days Qty: 30 0RF levofloxacin 750 mg Tablet 750 mg PO Q48H 1 Days Qty: 1 0RF Rx Instructions: Due 02/20/25 prednisone 20 mg Tablet 40 mg PO DAILY 2 Days Qty: 4 0RF sacubitril-valsartan [Entresto] 24-26 mg Tablet 1 tab PO BID 30 Days Qty: 60 0RF Continued atorvastatin 80 mg tablet 80 mg PO HS albuterol sulfate 90 mcg/actuation HFA aerosol inhaler 2 puff INHALATION Q4-6H PRN (Reason: Shortness Of Breath) Eliquis 5 mg tablet 5 mg PO BID Breztri Aerosphere 160-9-4.8 mcg/actuation HFA aerosol inhaler 2 puff INHALATION BID Patient Comments: INHALE 2 PUFFS BY MOUTH TWICE DAILY Discontinued diltiazem HCl 120 mg capsule,extended release 24hr 120 mg PO HS Problem Reconciliation Problems Reviewed?: Yes Patient Discharge Instructions ACTIVITY: Continue current activity DIET: continue same diet Patient Instructions: Pneumonia in Adults, Sepsis, Stop Light Pneumonia, NCM Chronic Obstructive Pulmonary Disease (COPD) Diet, NCM High-Calorie High-Protein Diet, WM High Calorie High Protein Diet Recipes, Pulmonary Diet Print Language: Welsh Providers Primary Care Provider: Collette Rendon Admit Provider: Jewel Gonzalez Attending Provider: Jewel Gonzalez
[2025-02-19 07:24] LABS: Hematocrit 45.5 % (42.0-52.0); Hemoglobin 14.3 g/dL (14.1-18.0); Immature Granulocytes % 0.5 %; Mean Corpuscular HGB Conc 31.4 g/dL (31.8-35.4); Mean Corpuscular Hemoglobin 28.8 pg (27.0-31.2); Mean Corpuscular Volume 91.5 fl (80-94); Nucleated Red Blood Cells % 0 %; Platelet Count 374 K/mm3 (142-424); Red Blood Count 4.97 M/mm3 (4.60-6.20); Red Cell Distribution Width-SD 44.8 fL; White Blood Count 15.0 K/mm3 (4.8-10.8)
[2025-02-19 07:30] LABS: Chloride 95 mmol/L (98-107); Potassium 4.7 mmoL/L (3.5-5.1); Sodium 138 mmol/L (136-145)
[2025-02-19 07:33] LABS: Anion Gap 10.7 mEq/L (5-15); Blood Urea Nitrogen 40 mg/dl (9-20); Calcium 9.1 mg/dl (8.4-10.2); Carbon Dioxide 37 mmol/L (22.0-30.0); Creatinine Clearance Estimated 46 mL/min (50-200); Creatinine,Serum 0.60 mg/dl (0.66-1.25); Estimated Glomerular Filt Rate 132 ml/min (>60); GFR (African American) 160 ML/MIN (>60); Glucose 103 mg/dl (74-100)
[2025-02-19 07:34] LABS: Magnesium 2.4 mg/dl (1.6-2.3)
[2025-02-19 08:00] VITALS: BP 118/73; PULSE 105; RESP 20; TEMP 36.6; O2SAT 97
[2025-02-19 10:07] VITALS: PULSE 107; PULSE 108; O2SAT 98
[2025-02-19] MEDS: APIXABAN 5MG TABLET 5 MG PO (10:52)
[2025-02-19] MEDS: SACUBITRIL/VALSARTAN 24-26MG TABLET 1 EACH PO (10:52)
[2025-02-19] MEDS: DAPAGLIFLOZIN PROPANEDIOL 10 MG TABLET PO (10:52)
[2025-02-19] MEDS: METOPROLOL SUCCINATE XL 50MG TABLET 50 MG PO (10:52)
--- NOTE | 2025-02-19 11:25 | PC.NURSE ---
Report called to Myke nguyen at [facility].
--- NOTE | 2025-02-21 13:31 | CARE MANAGER ---
Attempted to get patient an appt with pulmonology sooner, but they state Mar 10 is the earliest they have.
== END 2025-02-19 12:20 ==
LOC: ER 09:00 → 2ND 11:34
PROVIDERS: Nurse Practitioner Acute Care; Admitting Provider Internal Medicine Adolescent Medicine; Emergency Provider Emergency Medicine; PCP Nurse Practitioner; Visit Provider Internal Medicine Adolescent Medicine
DX: A41.9 Sepsis, unspecified organism (principal); E43 Unspecified severe protein-calorie malnutrition; J18.9 Pneumonia, unspecified organism; J96.01 Acute respiratory failure with hypoxia; J44.0 Chronic obstructive pulmonary disease with (acute) lower respiratory infection; R64 Cachexia; I50.40 Unspecified combined systolic (congestive) and diastolic (congestive) heart failure; Z68.1 Body mass index [BMI] 19.9 or less, adult; J43.9 Emphysema, unspecified; Z86.73 Personal history of transient ischemic attack (TIA), and cerebral infarction without residual deficits; I48.0 Paroxysmal atrial fibrillation; I95.9 Hypotension, unspecified; R65.20 Severe sepsis without septic shock; I11.0 Hypertensive heart disease with heart failure; Z79.01 Long term (current) use of anticoagulants; Z86.711 Personal history of pulmonary embolism; Z87.891 Personal history of nicotine dependence
CPT/HCPCS: 36415; 71045; 71275; 80048; 80053; 80061; 81001; 82803; 83605; 83735; 83880; 84100; 84145; 84443; 84484; 85007; 85025; 85610; 86803; 87040; 87070; 87205; 87389; 87636; 93005; 93306; 94640; 94760; 94761; 97162; 97164; 97166; 97530; 99285; J0456; J0696; J1938; J1956; J2919; J3475; J7030; J7040; J7050; J7120; Q9967